=== PATIENT | female | born 1950 | race Caucasian/White ===

== ENCOUNTER 2018-04-26 08:30 | Day surgery (SDC) | payer MEDICARE, OTHER, SELFPAY ==
[2018-04-26] VITALS (7 sets, daily range): BP systolic 131–157; BP diastolic 70–90; PULSE 58–85; RESP 16–169; TEMP 36.5–36.6; O2SAT 94–99; BMI 29.2
[2018-04-26] MEDS: Ciprofloxacin 200 MG/100 ML BAG 100 MG IV (09:43)
[2018-04-26 10:43] LABS: Anion Gap 7 (5-15); BUN 31 mg/dL (7-18); BUN/Creat Ratio 15.1 RATIO (10-20); Calcium,Total 9.4 mg/dL (8.5-10.1); Chloride 112 mmol/L (98-107); Creatinine, Serum 2.05 mg/dL (0.55-1.02); EST Glomerular Filtration Rate 26 mL/min (>60); Est Glom Filt Rate - Afr Amer 31 mL/min (>60); Estimated Creatinine Clearance 25.19 ml/min; Glucose 100 mg/dL (74-106); Potassium 3.7 mmol/L (3.5-5.1); Sodium Level 144 mmol/L (136-145)
--- NOTE | 2018-04-26 12:11 | PCM.IMDPSTOP ---
Immediate Post-Op Note Date of Procedure: 04/26/18 Primary Surgeon/Physician: Cristina Kwok MD utility service worker: none utility service worker: Cristina Kwok Pre-Operative Diagnosis: Left renal calculus. urinary tract infections Post-Operative Diagnosis: same Surgery/Procedure Performed:: cystoscopy left ureteral stent, left renal extracorporeal shockwave lithotripsy Description of Surgical Findings:: 1.5cm left renal calculus, 2 other stones about 3-5mm in size. all 3 stones were treated with total 3000 shocks applied. 6x24cm JJ stent inserted without difficulty. Estimated Blood Loss: <5cc Specimen's removed: none Type of Anesthesia:: General - Admit VTE Documentation VTE Present on Admission: No VTE Mechan Device Prophylaxis: SCD's VTE Pharm Prophylaxis ordered?: No Reason prophylaxis not ordered:: Treatment Not Indicated
--- NOTE | 2018-04-26 12:17 | OP.PN_ITS ---
Immediate Post-Op Note Date of Procedure: 04/26/18 Primary Surgeon/Physician: Cristina Kwok MD senior computer specialist: none senior computer specialist: Cristina Kwok Pre-Operative Diagnosis: Left renal calculus. urinary tract infections Post-Operative Diagnosis: same Surgery/Procedure Performed:: cystoscopy left ureteral stent, left renal extracorporeal shockwave lithotripsy Description of Surgical Findings:: 1.5cm left renal calculus, 2 other stones about 3-5mm in size. all 3 stones were treated with total 3000 shocks applied. 6x24cm JJ stent inserted without difficulty. Estimated Blood Loss: <5cc Specimen's removed: none Type of Anesthesia:: General - Admit VTE Documentation VTE Present on Admission: No VTE Mechan Device Prophylaxis: SCD's VTE Pharm Prophylaxis ordered?: No Reason prophylaxis not ordered:: Treatment Not Indicated
--- NOTE | 2018-04-26 12:18 | PCM.OPRPT ---
Problem List (1) Renal calculi Status: Acute (2) Urinary tract infection Status: Chronic Report of Operation Date of Procedure: 04/26/18 Pre-Operative Diagnosis: Left renal calculus. urinary tract infections Post-Operative Diagnosis: same Surgery/Procedure Performed:: cystoscopy left ureteral stent, left renal extracorporeal shockwave lithotripsy Description of Surgical Findings:: 1.5cm left renal calculus, 2 other stones about 3-5mm in size. all 3 stones were treated with total 3000 shocks applied. 6x24cm JJ stent inserted without difficulty. The patient is a 68-year-old female that I have been managing for several years with renal calculi and urinary tract infections. She had an ultrasound revealing a 1.6 cm stone in the left renal pelvis and a 1.2 cm stone in the right renal pelvis neither one causing hydronephrosis. After discussing all the risks benefits and alternatives in the office the patient agreed to proceed with surgical intervention. She has a history of significant renal dysfunction and has had urinary sepsis due to an obstructing stone in the past. The patient was taken to the operating room, placed on the operating room table. An appropriate timeout was performed in addition to assign and upon entry of the room. Anesthesia monitored the head neck area IV access and vital signs throughout the case. Once anesthesia was a probably administered the patient was placed into dorsal lithotomy position and was prepped and draped in usual sterile fashion. Using fluoroscopy, the left renal calculi were easily visualized. There is one in the central area of the renal pelvis approximately 1.5 cm in size and 2 smaller stones each approximately 5 mm in size identified. At this time a 21 [place] ACMI scope was used to perform a cystoscopy revealing no evidence of pathology within the urinary bladder. The left ureteral orifice was identified and a 0.035 Glidewire was passed without difficulty into the renal pelvis visualized on fluoroscopy. A 6 [place] 24 cm double-J stent was then passed over the wire without difficulty with good curling and she denied urinary bladder. Eventually the proximal portion of the stent curled without abnormality. At this time total of 3000 shocks were applied to the stones, 2000 to the central stone and each 500 to the other smaller stones identified within the left kidney. Patient tolerated the procedure well and was awakened without complication. She was taken to the recovery room in good condition. managed security sales consultant: none managed security sales consultant: Cristina Kwok Type of Anesthesia:: General Anesthesiologist: Irene Crane Specimen's removed: none Estimated Blood Loss (mL): <5cc - Complications none - Admit VTE Documentation VTE Present on Admission: Yes VTE Mechan Device Prophylaxis: SCD's VTE Pharm Prophylaxis ordered?: No Reason prophylaxis not ordered:: Treatment Not Indicated
--- NOTE | 2018-04-26 12:24 | OP.PCM_ITS ---
Problem List (1) Renal calculi Status: Acute (2) Urinary tract infection Status: Chronic Report of Operation Date of Procedure: 04/26/18 Pre-Operative Diagnosis: Left renal calculus. urinary tract infections Post-Operative Diagnosis: same Surgery/Procedure Performed:: cystoscopy left ureteral stent, left renal extracorporeal shockwave lithotripsy Description of Surgical Findings:: 1.5cm left renal calculus, 2 other stones about 3-5mm in size. all 3 stones were treated with total 3000 shocks applied. 6x24cm JJ stent inserted without difficulty. The patient is a 68-year-old female that I have been managing for several years with renal calculi and urinary tract infections. She had an ultrasound revealing a 1.6 cm stone in the left renal pelvis and a 1.2 cm stone in the right renal pelvis neither one causing hydronephrosis. After discussing all the risks benefits and alternatives in the office the patient agreed to proceed with surgical intervention. She has a history of significant renal dysfunction and has had urinary sepsis due to an obstructing stone in the past. The patient was taken to the operating room, placed on the operating room table. An appropriate timeout was performed in addition to assign and upon entry of the room. Anesthesia monitored the head neck area IV access and vital signs throughout the case. Once anesthesia was a probably administered the patient was placed into dorsal lithotomy position and was prepped and draped in usual sterile fashion. Using fluoroscopy, the left renal calculi were easily visualized. There is one in the central area of the renal pelvis approximately 1.5 cm in size and 2 smaller stones each approximately 5 mm in size identified. At this time a 21 [place] ACMI scope was used to perform a cystoscopy revealing no evidence of pathology within the urinary bladder. The left ureteral orifice was identified and a 0.035 Glidewire was passed without difficulty into the renal pelvis visualized on fluoroscopy. A 6 [place] 24 cm double-J stent was then passed over the wire without difficulty with good curling and she denied urinary bladder. Eventually the proximal portion of the stent curled without abnormality. At this time total of 3000 shocks were applied to the stones, 2000 to the central stone and each 500 to the other smaller stones identified within the left kidney. Patient tolerated the procedure well and was awakened without complication. She was taken to the recovery room in good condition. chronometer adjuster: none chronometer adjuster: Cristina Kwok Type of Anesthesia:: General Anesthesiologist: Irene Crane Specimen's removed: none Estimated Blood Loss (mL): <5cc - Complications none - Admit VTE Documentation VTE Present on Admission: Yes VTE Mechan Device Prophylaxis: SCD's VTE Pharm Prophylaxis ordered?: No Reason prophylaxis not ordered:: Treatment Not Indicated
== END 2018-04-26 13:50 | disposition home or self-care (01) ==
LOC: SDC 08:33 → AC 08:35
PROVIDERS: Anesthesiology; Family Provider Internal Medicine; PCP Internal Medicine; Visit Provider Urology
PROC: (CPT 50590; principal; 2018-04-26 10:05)
DX: N20.0 Calculus of kidney (principal); N39.0 Urinary tract infection, site not specified; N39.41 Urge incontinence; I12.9 Hypertensive chronic kidney disease with stage 1 through stage 4 chronic kidney disease, or unspecified chronic kidney disease; N18.4 Chronic kidney disease, stage 4 (severe); D51.0 Vitamin B12 deficiency anemia due to intrinsic factor deficiency; Z78.0 Asymptomatic menopausal state; K95.09 Other complications of gastric band procedure; Z79.899 Other long term (current) drug therapy; Z98.51 Tubal ligation status
CPT/HCPCS: 00873; 50590; 52332; 80048; J7120; C1769; C2617; J0744; J2405

== ENCOUNTER 2018-05-28 06:25 | Day surgery (SDC) | payer MEDICARE, OTHER, SELFPAY ==
[2018-05-28 07:07] VITALS: BP 142/83; PULSE 76; RESP 17; TEMP 36.8; O2SAT 97; BMI 29.0
[2018-05-28] MEDS: Ciprofloxacin 200 MG/100 ML BAG 100 MG IV (07:50)
[2018-05-28 09:45] VITALS: BP 116/73; BP 142/83; PULSE 63; RESP 16; TEMP 36.6; O2SAT 92
[2018-05-28 10:00] VITALS: BP 115/57; BP 142/83; PULSE 54; RESP 16; O2SAT 93
--- NOTE | 2018-05-28 10:04 | PCM.DC.URO ---
Discharge Diet: No Restrictions Discharge Activity: Return to Normal Activity, May not drive while taking narcotic pain medications. Call your doctor if you observe: Fever of 101 or Higher, Inability to urinate, Inability to have a bowel movement, Calf discomfort, Uncontrolled pain Allergies/Adverse Reactions: Allergies adhesive tape Allergy (Verified 05/21/18 12:32) Rash amoxicillin [From Augmentin] Allergy (Verified 05/21/18 12:32) Swelling cephalexin [From Keflex] Allergy (Verified 05/21/18 12:32) Swelling clavulanic acid [From Augmentin] Allergy (Verified 05/21/18 12:32) Swelling latex Allergy (Verified 05/21/18 12:32) Rash Penicillins [PCN] Allergy (Verified 05/21/18 12:32) Swelling sulfamethoxazole [From Bactrim] Allergy (Verified 05/21/18 12:32) rash,swellling, itching trimethoprim [From Bactrim] Allergy (Verified 05/21/18 12:32) rash,swellling, itching Medications to take at Discharge Amlodipine [Norvasc] 10 mg PO DAILY 04/19/18 Calcitriol [Rocaltrol] 0.25 mcg PO MOWEFR 04/19/18 Cyanocobalamin (Vitamin B-12) [Vitamin B-12] 1,000 mcg PO DAILY 04/19/18 Ergocalciferol [Vitamin D] 50,000 unit PO Q7D 04/19/18 Lisinopril [Zestril] 10 mg PO DAILY 04/19/18 Primary Care Physician: Charlie Yan [Primary Care Provider] - Test Results: Test results from this visit will be discussed in further detail at your follow-up appointment, if applicable. Please Follow Up With: Cristina Kwok MD - 2-3 weeks
--- NOTE | 2018-05-28 10:06 | PCM.IMDPSTOP ---
Immediate Post-Op Note Date of Procedure: 05/28/18 Primary Surgeon/Physician: Cristina Kwok MD finisher hot strip: Cristina Kwok Pre-Operative Diagnosis: left renal calculus Post-Operative Diagnosis: same Surgery/Procedure Performed:: cystoscopy, left retrograde pyelogram, left ureteroscopy, left ureteral stent removal Description of Surgical Findings:: a few small stone fragments were irrigated from the renal pelvis, there are multiple stones seen behind the calyces. Also a few small stone fragments seen alongside the stent that were removed with removal of the stent. Estimated Blood Loss: 2cc Specimen's removed: none - Admit VTE Documentation VTE Present on Admission: Yes VTE Mechan Device Prophylaxis: SCD's VTE Pharm Prophylaxis ordered?: No Reason prophylaxis not ordered:: Treatment Not Indicated
[2018-05-28 10:15] VITALS: BP 115/59; BP 142/83; PULSE 58; RESP 16; O2SAT 95
[2018-05-28 10:28] VITALS: BP 125/65; BP 142/83; PULSE 58; RESP 16; TEMP 36; O2SAT 95
--- NOTE | 2018-05-28 11:22 | PCM.OPRPT ---
Problem List (1) Renal calculi Status: Acute Report of Operation Date of Procedure: 05/28/18 Pre-Operative Diagnosis: left renal calculus Post-Operative Diagnosis: same Surgery/Procedure Performed:: cystoscopy, left retrograde pyelogram, left ureteroscopy, left ureteral stent removal Description of Surgical Findings:: a few small stone fragments were irrigated from the renal pelvis, there are multiple stones seen behind the calyces. Also a few small stone fragments seen alongside the stent that were removed with removal of the stent. hose suspender cutter: Cristina Kwok Type of Anesthesia:: General Specimen's removed: none Estimated Blood Loss (mL): 2cc Description of Procedure: The patient is a 68-year-old female who presents with continued left renal calculi following left ureteral stent insertion and extracorporal shockwave lithotripsy. After discussing all the risks benefits and alternatives she agreed to proceed with ureteroscopy and laser lithotripsy as treatment for her stones. Patient was taken to the operating room placed on the operating room table anesthesia monitored the head neck area IV access and vital signs throughout the case. Once anesthesia was probably administered patient was placed in dorsolithotomy position was prepped and draped in usual sterile fashion. A cystourethroscopy was performed and the stent was identified and grasped. All 0.35 wire Glidewire was passed through the stent into the renal pelvis and a second 0.035 Glidewire was passed through the ureteral orifice as well. One was left as a safety wire and the other used as a working wire. A ureteral re-access sheath was then passed over this working wire under fluoroscopic visualization. At this time ureteroscopy using a flexible scope was performed of every calyx in the left kidney. This was done under fluoroscopic visualization in addition to direct visualization through the scope. There were small fragments identified in some mucus. There were no fragments large enough to grasp or laser. There were stones identified on the other side of the parenchyma. At this time full visualization of the renal collecting system was confirmed by performing a retrograde pyelogram. This time the ureteroscope was used to remove the reaccessed sheath under direct visualization. There were no further stones identified aside from one small one alongside the safety wire which was removed with the wire. The patient was left without a ureteral stent. She was awakened and taken to the recovery room in good condition. There are no complications during this procedure. - Complications none - Admit VTE Documentation VTE Present on Admission: Yes VTE Mechan Device Prophylaxis: SCD's VTE Pharm Prophylaxis ordered?: No Reason prophylaxis not ordered:: Treatment Not Indicated
[2018-05-28 11:30] VITALS: BP 122/68; BP 142/83; PULSE 60; RESP 16; TEMP 36.1; O2SAT 95
== END 2018-05-28 11:32 | disposition home or self-care (01) ==
LOC: SDC 06:26 → AC 06:26
PROVIDERS: Family Provider Internal Medicine; PCP Internal Medicine; Visit Provider Urology
PROC: 0TJ98ZZ Inspection of Ureter, Via Natural or Artificial Opening Endoscopic (ICD-10-PCS; CPT 52352; principal; 2018-05-28 08:10)
DX: N20.0 Calculus of kidney (principal); N39.0 Urinary tract infection, site not specified; R39.15 Urgency of urination; I12.9 Hypertensive chronic kidney disease with stage 1 through stage 4 chronic kidney disease, or unspecified chronic kidney disease; N18.4 Chronic kidney disease, stage 4 (severe); E21.5 Disorder of parathyroid gland, unspecified; G40.89 Other seizures; D51.0 Vitamin B12 deficiency anemia due to intrinsic factor deficiency; Z79.899 Other long term (current) drug therapy; Z78.0 Asymptomatic menopausal state; Z98.51 Tubal ligation status; Z98.84 Bariatric surgery status
CPT/HCPCS: 52352; 76000; J7120; C1769; J0744; J2405

== ENCOUNTER 2018-06-25 15:12 | Emergency (ER) | payer MEDICARE, OTHER, SELFPAY ==
[2018-06-25 15:16] VITALS: BP 162/87; PULSE 85; RESP 14; TEMP 36.2; O2SAT 97; BMI 28.1
[2018-06-25 16:11] LABS: Mucous, Urine 0 SEEN /hpf (<or=2+); Red Blood Cells-Urine 0 SEEN /hpf (0-5); Squamous Epithelial Cells - UA 0 SEEN /hpf (5-10)
[2018-06-25] MEDS: 0.9% Normal Saline 1,000 ML 150 ML IV (16:11)
[2018-06-25 16:14] LABS: Color, Urine Yellow (Yellow); Glucose, Dipstick Normal (Normal); Ketone-Dipstick Negative (Negative); Leukocyte Esterase-Dipstick 500 /ul (Negative); Nitrite-Dipstick Negative (Negative); Occult Blood-Urine 10 /ul (Negative); Protein-Dipstick Negative (Negative); Urine Bilirubin Dipstick Negative (Negative); Urine Clarity Clear (Clear); Urine Urobilinogen Normal (Normal)
[2018-06-25 16:24] LABS: Absolute Lymphocyte Count 2.16 X10^3/ul (0.83-4.51); Absolute Neutrophil Count 7.3 X10^3/uL (2.0-7.7); Basophil# 0.04 X10^3/uL; Basophil% 0.4 % (0-1); Eosinophil# 0.21 X10^3/uL; Hematocrit 36.9 % (37-47); Hemoglobin 11.4 g/dl (12.0-15.0); Lymphocyte # 2.16 X10^3/ul (4.0); Mean Corp Hgb Conc 30.9 g/gl (32-36); Mean Corpuscular Hgb 27.7 pg (27.0-32.0); Mean Corpuscular Volume 89.8 fL (81-99); Mean Platelet Vol. 11.6 fl (6.2-12.0); Monocyte# 0.54 X10^3/uL; Monocyte% 5.3 % (0-10); Neutrophil # 7.32 X10^3/uL (2.7-7.7); Neutrophil % 71.2 % (47-70); Platelet Count 255 K/mm3 (150-450); RBC Distribution Width CV 13.2 % (11.6-14.6); RBC Distribution Width SD 42.9 fl (35.1-43.9); Red Blood Count 4.11 M/mm3 (4.2-5.4); White Blood Count 10.3 K/mm3 (4.4-11.0)
[2018-06-25 16:26] LABS: POSITIVE COUNT NO; POSITIVE DIFFERENTIAL NO; POSITIVE MORPHOLOGY NO
[2018-06-25 16:28] LABS: Bacteria RARE /hpf (None Seen); White Blood Cells 10-25 SEEN /hpf (0-5)
[2018-06-25 16:32] LABS: Anion Gap 9 (5-15); BUN 46 mg/dL (7-18); BUN/Creat Ratio 17.4 RATIO (10-20); Calcium,Total 9.6 mg/dL (8.5-10.1); Chloride 107 mmol/L (98-107); Creatinine, Serum 2.64 mg/dL (0.55-1.02); EST Glomerular Filtration Rate 19 mL/min (>60); Est Glom Filt Rate - Afr Amer 23 mL/min (>60); Estimated Creatinine Clearance 19.56 ml/min; Glucose 97 mg/dL (74-106); Potassium 4.3 mmol/L (3.5-5.1); Sodium Level 142 mmol/L (136-145)
--- NOTE | 2018-06-25 16:48 | NURSING ---
LACTIC ACID HEMOLIZED
--- NOTE | 2018-06-25 17:04 | PCM.CONS.GEN ---
Reason for Consult Date of Consultation: 06/25/18 Reason for Consultation: Possible free air on CT History of Present Illness: The patient is a 68 year old F came to the ER after being told that she needed to go there by the radiologist after having CT abdomen pelvis done for a follow-up for her kidney stones. The initial read did say there is intraperitoneal air by the ascending colon and cecum and possibly small bowel small bowel. Patient states on May 28 she had her left ureteral stent removed and nothing was done to the right ureter by Dr. Kwok. Patient was just undergoing follow-up CT denied any abdominal pain, nausea, vomiting. Patient states last time she had a colonoscopy was years ago and she does plan to get her repeat scope done once these kidney stones have been dealt with. She states she does have bowel movement about every other day with the use of MiraLAX daily. She denies any blood states bowel movements are soft. Patient states she has been eating normal diet and not having issues. CT abdomen pelvis was reviewed with our radiologist Dr. Crook he thought that there was actually possibly in the wall of the cecum/colon but he does agree that there is no bowel wall thickening seen on CT. Past Medical History Past Medical History (Chronic Problems): Chronic Problems Urinary tract infection (Chronic) Allergies adhesive tape Allergy (Verified 06/25/18 15:18) Rash amoxicillin [From Augmentin] Allergy (Verified 06/25/18 15:18) Swelling cephalexin [From Keflex] Allergy (Verified 06/25/18 15:18) Swelling clavulanic acid [From Augmentin] Allergy (Verified 06/25/18 15:18) Swelling latex Allergy (Verified 06/25/18 15:18) Rash Penicillins [PCN] Allergy (Verified 06/25/18 15:18) Swelling sulfamethoxazole [From Bactrim] Allergy (Verified 06/25/18 15:18) rash,swellling, itching trimethoprim [From Bactrim] Allergy (Verified 06/25/18 15:18) rash,swellling, itching Home Medications: Ambulatory Orders Medication Instructions Recorded Amlodipine [Norvasc] 10 mg PO DAILY 04/19/18 Calcitriol [Rocaltrol] 0.25 mcg PO MOWEFR 04/19/18 Cyanocobalamin (Vitamin B-12) 1,000 mcg PO DAILY 04/19/18 [Vitamin B-12] Ergocalciferol [Vitamin D] 50,000 unit PO Q7D 04/19/18 Lisinopril [Zestril] 10 mg PO DAILY 04/19/18 Surgical History: - - 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, multiple cystoscopies due to kidney stones Psychiatric History: No pertinent psych hx CHIEF ENTERPRISE ARCHITECT History: No pertinent CHIEF ENTERPRISE ARCHITECT history Smoking Status: Never smoker - *Family History Maternal History Items: No pertinent history Review of Systems Constitutional: Denies: Anorexia, Chills, Fever Eyes: Denies: Double vision HEENT: Denies: Difficulty Swallowing Cardiovascular: Denies: Chest Pain Respiratory: Denies: Shortness of breath at rest Gastrointestinal: Denies: Abdominal Pain, Nausea, Vomiting Genitourinary: Denies: Dysuria Musculoskeletal: Denies: Joint Pain Skin: Denies: Rash Neurological: Denies: Balance problems Psychiatric: Reports: Depression - Denies any suicidal ideation. Denies: Anxiety Hematologic/ Lymphatic: Reports: Easy Bruising. Denies: Easy Bleeding - Physical Exam General: Alert, Oriented x3, Cooperative HEENT: Atraumatic Cardiovascular: Regular rate Abdomen: Soft, Non Tender - no Peritoneal signs, Non-Distended Vital Signs Temp Pulse Resp BP Pulse Ox 97.2 F L 85 14 162/87 H 97 06/25/18 15:16 06/25/18 15:16 06/25/18 15:16 06/25/18 15:16 06/25/18 15:16 Oxygen Delivery Method Room Air Weight: 180 lb Body Mass Index (BMI) 28.1 Laboratory Tests Past 24 Hrs 06/25/18 06/25/18 06/25/18 16:00 16:01 16:01 WBC 10.3 RBC 4.11 L Hgb 11.4 L Hct 36.9 L MCV 89.8 MCH 27.7 MCHC 30.9 L RDW 13.2 RDW Differential 42.9 Plt Count 255 MPV 11.6 Immature Gran % (Auto) 0.100 Neut % (Auto) 71.2 H Lymph % (Auto) 21.0 [place] % (Auto) 5.3 Eos % (Auto) 2.0 Baso % (Auto) 0.4 Absolute Neuts (auto) 7.3 Absolute Lymphs (auto) 2.16 Total Counted Not Reportable Sodium 142 Potassium 4.3 Chloride 107 Carbon Dioxide 26.0 Anion Gap 9 BUN 46 H Creatinine 2.64 H Estim Creat Clear Calc 19.56 Est GFR (MDRD) Af Amer 23 L Est GFR (MDRD) Non-Af 19 L BUN/Creatinine Ratio 17.4 Glucose 97 Lactic Acid Calcium 9.6 Urine Color Yellow Urine Clarity Clear Urine pH 6.0 Ur Specific [place] 1.010 Urine Protein Negative Urine Glucose (UA) Normal Urine Ketones Negative Urine Occult Blood 10 H Urine Nitrite Negative Urine Bilirubin Negative Urine Urobilinogen Normal Ur Leukocyte Esterase 500 H Urine RBC 0 SEEN Urine WBC 10-25 SEEN Ur Squamous Epith Cells 0 SEEN Urine Bacteria RARE Urine Mucus 0 SEEN 06/25/18 06/25/18 16:01 16:58 WBC RBC Hgb Hct MCV MCH MCHC RDW RDW Differential Plt Count MPV Immature Gran % (Auto) Neut % (Auto) Lymph % (Auto) [place] % (Auto) Eos % (Auto) Baso % (Auto) Absolute Neuts (auto) Absolute Lymphs (auto) Total Counted Sodium Potassium Chloride Carbon Dioxide Anion Gap BUN Creatinine Estim Creat Clear Calc Est GFR (MDRD) Af Amer Est GFR (MDRD) Non-Af BUN/Creatinine Ratio Glucose Lactic Acid Cancelled Pending Calcium Urine Color Urine Clarity Urine pH Ur Specific [place] Urine Protein Urine Glucose (UA) Urine Ketones Urine Occult Blood Urine Nitrite Urine Bilirubin Urine Urobilinogen Ur Leukocyte Esterase Urine RBC Urine WBC Ur Squamous Epith Cells Urine Bacteria Urine Mucus Assessment/Plan All Active Problems Renal calculi (Acute) 68-year-old female with CT showing likely retroperitoneal air, denies abdominal pain, normal white blood cell count 1. Patient does not have any abdominal pain on exam also has a normal white blood cell count do not think that this area is significant may have been due to possible perforated sealed; however, there is no thickened bowel on CT or possibly due to straining. I would recommend that prior to her getting colonoscopy that she gets a repeat CAT scan to take a look at this. Did discuss with Dr. Kwok and she agreed to follow-up with CT scan. Discussed with the patient that I would recommend that if she has any increased pain would recommend her coming to the ER. Patient was agreeable had no further questions at this time. 2. Constipation: patient takes MiraLAX daily currently recommend patient check her fiber intake with a goal of 25-30 g of fiber daily to see if this improves her constipation. As she still had a bit of stool on her CT and she states she took 2 Dulcolax as well as the MiraLAX. Tahira Malone M.D. Pager: [phone] [facility] [address] [place] [address], Outpatient [place], [address] [place] [address] Office: [phone] Code Visit Inpatient E&M: 98078 Init Hosp L1
--- NOTE | 2018-06-25 17:09 | CON.PCM_ITS ---
Reason for Consult Date of Consultation: 06/25/18 Reason for Consultation: Possible free air on CT History of Present Illness: The patient is a 68 year old F came to the ER after being told that she needed to go there by the radiologist after having CT abdomen pelvis done for a follow- up for her kidney stones. The initial read did say there is intraperitoneal air by the ascending colon and cecum and possibly small bowel small bowel. Patient states on May 28 she had her left ureteral stent removed and nothing was done to the right ureter by Dr. Kwok. Patient was just undergoing follow -up CT denied any abdominal pain, nausea, vomiting. Patient states last time she had a colonoscopy was years ago and she does plan to get her repeat scope done once these kidney stones have been dealt with. She states she does have bowel movement about every other day with the use of MiraLAX daily. She denies any blood states bowel movements are soft. Patient states she has been eating normal diet and not having issues. CT abdomen pelvis was reviewed with our radiologist Dr. Crook he thought that there was actually possibly in the wall of the cecum/colon but he does agree that there is no bowel wall thickening seen on CT. Past Medical History Past Medical History (Chronic Problems): Chronic Problems Urinary tract infection (Chronic) Allergies adhesive tape Allergy (Verified 06/25/18 15:18) Rash amoxicillin [From Augmentin] Allergy (Verified 06/25/18 15:18) Swelling cephalexin [From Keflex] Allergy (Verified 06/25/18 15:18) Swelling clavulanic acid [From Augmentin] Allergy (Verified 06/25/18 15:18) Swelling latex Allergy (Verified 06/25/18 15:18) Rash Penicillins [PCN] Allergy (Verified 06/25/18 15:18) Swelling sulfamethoxazole [From Bactrim] Allergy (Verified 06/25/18 15:18) rash,swellling, itching trimethoprim [From Bactrim] Allergy (Verified 06/25/18 15:18) rash,swellling, itching Home Medications: Ambulatory Orders Medication Instructions Recorded Amlodipine [Norvasc] 10 mg PO DAILY 04/19/18 Calcitriol [Rocaltrol] 0.25 mcg PO MOWEFR 04/19/18 Cyanocobalamin (Vitamin B-12) 1,000 mcg PO DAILY 04/19/18 [Vitamin B-12] Ergocalciferol [Vitamin D] 50,000 unit PO Q7D 04/19/18 Lisinopril [Zestril] 10 mg PO DAILY 04/19/18 Surgical History: - - 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, multiple cystoscopies due to kidney stones Psychiatric History: No pertinent psych hx [employer] 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 Denies: Anxiety Hematologic/ Lymphatic: Reports: Easy Bruising. Denies: Easy Bleeding - Physical Exam General: Alert, Oriented x3, Cooperative HEENT: Atraumatic Cardiovascular: Regular rate Abdomen: Soft, Non Tender - no Peritoneal signs, Non-Distended Vital Signs Temp Pulse Resp BP Pulse Ox 97.2 F L 85 14 162/87 H 97 06/25/18 15:16 06/25/18 15:16 06/25/18 15:16 06/25/18 15:16 06/25/18 15:16 Oxygen Delivery Method Room Air Weight: 180 lb Body Mass Index (BMI) 28.1 Laboratory Tests Past 24 Hrs 06/25/18 06/25/18 06/25/18 16:00 16:01 16:01 WBC 10.3 RBC 4.11 L Hgb 11.4 L Hct 36.9 L MCV 89.8 MCH 27.7 MCHC 30.9 L RDW 13.2 RDW Differential 42.9 Plt Count 255 MPV 11.6 Immature Gran % (Auto) 0.100 Neut % (Auto) 71.2 H Lymph % (Auto) 21.0 Coffey % (Auto) 5.3 Eos % (Auto) 2.0 Baso % (Auto) 0.4 Absolute Neuts (auto) 7.3 Absolute Lymphs (auto) 2.16 Total Counted Not Reportable Sodium 142 Potassium 4.3 Chloride 107 Carbon Dioxide 26.0 Anion Gap 9 BUN 46 H Creatinine 2.64 H Estim Creat Clear Calc 19.56 Est GFR (MDRD) Af Amer 23 L Est GFR (MDRD) Non-Af 19 L BUN/Creatinine Ratio 17.4 Glucose 97 Lactic Acid Calcium 9.6 Urine Color Yellow Urine Clarity Clear Urine pH 6.0 Ur Specific [place] 1.010 Urine Protein Negative Urine Glucose (UA) Normal Urine Ketones Negative Urine Occult Blood 10 H Urine Nitrite Negative Urine Bilirubin Negative Urine Urobilinogen Normal Ur Leukocyte Esterase 500 H Urine RBC 0 SEEN Urine WBC 10-25 SEEN Ur Squamous Epith Cells 0 SEEN Urine Bacteria RARE Urine Mucus 0 SEEN 06/25/18 06/25/18 16:01 16:58 WBC RBC Hgb Hct MCV MCH MCHC RDW RDW Differential Plt Count MPV Immature Gran % (Auto) Neut % (Auto) Lymph % (Auto) Coffey % (Auto) Eos % (Auto) Baso % (Auto) Absolute Neuts (auto) Absolute Lymphs (auto) Total Counted Sodium Potassium Chloride Carbon Dioxide Anion Gap BUN Creatinine Estim Creat Clear Calc Est GFR (MDRD) Af Amer Est GFR (MDRD) Non-Af BUN/Creatinine Ratio Glucose Lactic Acid Cancelled Pending Calcium Urine Color Urine Clarity Urine pH Ur Specific [place] Urine Protein Urine Glucose (UA) Urine Ketones Urine Occult Blood Urine Nitrite Urine Bilirubin Urine Urobilinogen Ur Leukocyte Esterase Urine RBC Urine WBC Ur Squamous Epith Cells Urine Bacteria Urine Mucus Assessment/Plan All Active Problems Renal calculi (Acute) 68-year-old female with CT showing likely retroperitoneal air, denies abdominal pain, normal white blood cell count 1. Patient does not have any abdominal pain on exam also has a normal white blood cell count do not think that this area is significant may have been due to possible perforated sealed; however, there is no thickened bowel on CT or possibly due to straining. I would recommend that prior to her getting colonoscopy that she gets a repeat CAT scan to take a look at this. Did discuss with Dr. Kwok and she agreed to follow-up with CT scan. Discussed with the patient that I would recommend that if she has any increased pain would recommend her coming to the ER. Patient was agreeable had no further questions at this time. 2. Constipation: patient takes MiraLAX daily currently recommend patient check her fiber intake with a goal of 25-30 g of fiber daily to see if this improves her constipation. As she still had a bit of stool on her CT and she states she took 2 Dulcolax as well as the MiraLAX. Tahira Malone M.D. Pager: [phone] [facility] [address] [place] [address], Outpatient [place], [address] [place] [address] Office: [phone] Code Visit Inpatient E&M: 36560 Init Hosp L1
--- NOTE | 2018-06-25 17:47 | ED.VISSUMM ---
- ER Visit Summary Date of Service: 06/25/18 Chief Complaint: Abnormal CT History of Present Illness: The patient is a 68 F with a history of kidney stones. On May 28 patient had ureter stent and kidney stone removed. She went to an outpatient CT scan today just for routine follow-up of her kidney stones. She had a phone call from the radiologist to go immediately to the nearest emergency room secondary to free air on her scan. Patient denies any abdominal pain. She has chronic soft stool after a gastric bypass but has had no significant change in her bowel regimen. She has no vomiting, fever, chills. Physical Examination: Blood pressure on arrival is 162/87, other vitals normal. Patient sitting upright in bed no acute distress. Heart is regular rate and rhythm. Lung sounds are clear. Abdomen is soft and nontender to exam. Hypoactive but present bowel sounds are noted throughout. Test Results: CBC was normal white count hemoglobin 11.4. Chemistry studies reveal BUN of 46 and creatinine 2.64. Urinalysis shows 10-25 whites and rare bacteria. Lactate is normal at 1.0. I was able to review the CT report which revealed free air adjacent to the cecum and the ascending colon. There is no obvious mural thickening of the colon. There may be 2 or 3 tiny foci of air adjacent to the small bowel in the mid abdomen. Emergency Department Course and Treatment: I spoke with Dr. Kwok along with Dr. Malone from surgery shortly after seeing the patient. Dr. Malone presented to the emergency room to evaluate her. She reviewed the CT scan with Dr. Crook. It is felt the patient has pneumatosis of the right hemicolon. With normal labs and a non-tender abdomen, it is recommended that she follow-up for a repeat CT scan and colonoscopy as an outpatient. If her pain worsens she is to return to the emergency room. I spoke with the patient's urologist to update her on her findings. She asked that we send the urine for culture but not treat her urine at this time as she does tend to have appearance of chronically infected urine. Treatment Plan: [] Disposition: Discharge Impression: Pneumatosis of right hemicolon This note was generated with CaseTrekation software. It may contain incorrect words, spelling, and punctuation that were not noted in review of the chart prior to signing ED Disposition - Plan for ED Patient: Chief Complaint: Abd Pain Referrals: Charlie Yan [Primary Care Provider] -
--- NOTE | 2018-06-25 17:51 | ED.DEP ---
ED Disposition - Plan for ED Patient: Disposition: Home or Assisted Living Chief Complaint: Abd Pain Referrals: Charlie Yan [Primary Care Provider] - Cristina Kwok MD [STAFF PHYSICIAN] - Additional Instructions: Your CT scan showed air in the wall of your colon. Return to the ED immediately for pain or any other concerns. As suggested by surgery, follow-up for repeat CT scan and colonoscopy.
[2018-06-25 18:00] VITALS: BP 143/78; PULSE 83; RESP 16; O2SAT 98
== END 2018-06-25 18:01 | disposition home or self-care (01) ==
PROVIDERS: Emergency Provider Emergency Medicine; Family Provider Internal Medicine; PCP Internal Medicine
DX: K63.89 Other specified diseases of intestine (principal); I10 Essential (primary) hypertension; Z79.899 Other long term (current) drug therapy; Z87.442 Personal history of urinary calculi; Z98.84 Bariatric surgery status
CPT/HCPCS: 80048; 81001; 83605; 85025; 87077; 87086; 87088; 87186; 96360; 96361; 99283; J7030; A4216

== ENCOUNTER → 2019-06-09 12:44 | Outpatient (CLI) | payer MEDICARE, OTHER, SELFPAY ==
[2019-06-09 13:54] LABS: Hematocrit 38.8 % (37-47); Hemoglobin 12.1 g/dL (12.0-15.0); Mean Corp Hgb Conc 31.2 g/dL (32-36); Mean Corpuscular Hgb 28.9 pg (27.0-32.0); Mean Corpuscular Volume 92.8 fL (81-99); Mean Platelet Vol. 12.3 fl (6.2-12.0); Platelet Count 243 K/mm3 (150-450); RBC Distribution Width CV 13.3 % (11.6-14.6); RBC Distribution Width SD 45.1 fl (35.1-43.9); Red Blood Count 4.18 M/mm3 (4.2-5.4); White Blood Count 9.9 K/mm3 (4.4-11.0)
[2019-06-09 14:05] LABS: AST(SGOT) 22 U/L (15-37); Alanine Aminotransfer ALT/SGPT 23 U/L (13-56); Albumin, Serum 3.7 g/dL (3.2-5.0); Alkaline Phosphatase 198 U/L (45-117); BUN 45 mg/dL (7-18); BUN/Creat Ratio 14.1 RATIO (10-20); Calcium,Total 9.2 mg/dL (8.5-10.1); Chloride 115 mmol/L (98-107); EST Glomerular Filtration Rate 15 mL/min (>60); Est Glom Filt Rate - Afr Amer 18 mL/min (>60); Globulin 3.7 g/dL (2.2-4.2); Glucose 104 mg/dL (74-106); Potassium 3.8 mmol/L (3.5-5.1); Protein, Total 7.4 g/dL (6.4-8.2); Sodium Level 142 mmol/L (136-145)
[2019-06-09 14:06] LABS: Anion Gap 10 (5-15)
== END ==
PROVIDERS: Family Provider Family Medicine; PCP Family Medicine; Referring Provider Urology; Visit Provider Urology
DX: N20.0 Calculus of kidney (principal); R10.9 Unspecified abdominal pain
CPT/HCPCS: 36415; 80053; 85027

== ENCOUNTER → 2019-06-11 15:44 | Outpatient (CLI) | payer MEDICARE, OTHER, SELFPAY ==
--- NOTE | 2019-06-11 15:48 | CT_ITS ---
STUDY: CT ABDOMEN AND PELVIS WITHOUT CONTRAST REASON FOR EXAM: Female, 69 years old. Stage IV renal disease, history of bilateral kidney stones RADIATION DOSAGE (If Supplied By Facility): CTDIvol = ( 11.13 ) mGy, DLP = ( 573.02 ) mGycm TECHNIQUE: Transaxial images were obtained from the dome of the diaphragm to the symphysis pubis without oral contrast, and without intravenous contrast. Sagittal and coronal images were reconstructed. Individualized dose optimization techniques were used for this CT. COMPARISON: None. FINDINGS: The visualized lung bases are unremarkable. The visualized portions of the heart are within normal limits. Normal liver. There is a solitary gallstone. Normal spleen. Normal pancreas. Normal bilateral adrenal glands. There is mild left renal atrophy. There are multiple nonobstructing right renal calculi measuring up to 8 mm. There is mild left renal atrophy. Multiple nonobstructing left renal calculi are also noted measuring up to 6 mm. There are several lower pole cyst measuring up to 2.5 cm. Normal visualized stomach. Normal small intestine. There is a moderate colonic stool burden. There is non-visualization of the appendix. There are calcified plaques of the abdominal aorta. Normal inferior vena cava. Normal retroperitoneum. Normal urinary bladder. There is a tiny fat-containing umbilical hernia. There are diffuse degenerative changes of the visualized thoracolumbar spine. There is a grade 1 retrolisthesis of L5 relative to L4 and S1. CT/Abdomen/Pelvis without Cont IMPRESSION: 1. Cholelithiasis. 2. Mild bilateral renal atrophy. Multiple nonobstructing bilateral renal calculi. Several lower pole left renal cyst measuring up to 2.5 cm. 3. Moderate colonic stool burden. 4. Tiny fat-containing umbilical hernia. Electronically Signed: Сергей Moreland MD at 16:23 EDT , Service support ,
== END ==
PROVIDERS: Family Provider Family Medicine; PCP Family Medicine; Referring Provider Urology; Visit Provider Urology
DX: N20.0 Calculus of kidney (principal); R10.9 Unspecified abdominal pain
CPT/HCPCS: 74176

== ENCOUNTER 2019-09-20 13:30 | Inpatient (IN) | payer MEDICARE, OTHER, SELFPAY ==
[2019-09-20] VITALS (10 sets, daily range): BP systolic 115–157; BP diastolic 72–105; PULSE 64–86; RESP 16–23; TEMP 36.5–36.9; O2SAT 95–100; BMI 27.1; BMI 26.9; BMI 27.0
--- NOTE | 2019-09-20 13:58 | CT_ITS ---
STUDY: CT ABDOMEN AND PELVIS WITHOUT CONTRAST REASON FOR EXAM: Female, 69 years old. Bilateral flank pain. RADIATION DOSAGE (If Supplied By Facility): CTDIvol = ( 11.40 ) mGy, DLP = ( 589.77 ) mGycm TECHNIQUE: Transaxial images were obtained from the dome of the diaphragm to the symphysis pubis without oral contrast, and without intravenous contrast. Sagittal and coronal images were reconstructed. Individualized dose optimization techniques were used for this CT. COMPARISON: 06/11/2019 FINDINGS: Evaluation of the abdominal viscera is limited in the absence of intravenous contrast. The visualized lung bases are clear. The visualized portions of the heart and pericardium are within normal limits. There are gallstones noted in the gallbladder. The liver is low in density, consistent with fatty infiltration. The spleen is normal in size. The pancreas demonstrates an unremarkable unenhanced appearance. The adrenal glands are within normal limits. There are stable bilateral subcentimeter nonobstructing renal collecting system stones, measuring up to 7 mm. There are no ureteral stones. There is no hydronephrosis. There is a stable cyst in the lower pole of the left kidney. Normal visualized stomach. There is no bowel obstruction or inflammation. There is a large amount of stool in the colon, consistent with constipation. The appendix is not visualized, but there are no findings to suggest acute appendicitis. The aorta is normal in caliber. Again noted are atherosclerotic calcifications in the aorta. There is no abdominal or pelvic free air, free fluid, fluid collection or lymphadenopathy. There are no destructive osseous lesions. There are stable degenerative changes noted in the spine. CT/Abdomen/Pelvis without Cont IMPRESSION: No acute abdominal or pelvic pathology demonstrated on this noncontrast CT. Stable nonacute findings, as above. Electronically Signed: Darryl Neff, at 15:01 EST Tel , Service support ,
--- NOTE | 2019-09-20 13:59 | RAD_ITS ---
STUDY: X-RAY CHEST REASON FOR EXAM: Female, 69 years old. Bilateral flank pain and shortness of breath. TECHNIQUE: PA and lateral views of the chest. COMPARISON: None. FINDINGS: The lungs are clear and expanded. There is no demonstrated pleural abnormality. Normal size heart. Normal mediastinum and mame. Normal visualized pulmonary arteries. Normal visualized aortic arch and descending thoracic aorta. Normal visualized thoracic spine. Normal visualized ribs, clavicles, and shoulders. There is no demonstrated abnormality of the visualized soft tissue structures of the upper abdomen. RAD/Chest PA and Lateral IMPRESSION: No acute cardiopulmonary disease. Electronically Signed: Francisco Long DO at 16:19 EST Tel [phone], Service support ,
[2019-09-20] MEDS: 0.9% Normal Saline 1,000 ML 1000 ML IV (14:15)
[2019-09-20] MEDS: Ondansetron 4 MG/2 ML Vial IV (14:15)
[2019-09-20 14:22] LABS: Absolute Lymphocyte Count 1.19 X10^3/uL (0.83-4.51); Absolute Neutrophil Count 7.1 X10^3/uL (2.0-7.7); Basophil# 0.04 X10^3/uL; Basophil% 0.5 % (0-1); Eosinophil# 0.06 X10^3/uL; Eosinophils% 0.7 % (0-5); Hematocrit 34.9 % (37-47); Hemoglobin 11.3 g/dL (12.0-15.0); Lymphocyte # 1.19 X10^3/ul (4.0); Lymphocyte % 13.4 % (19-41); Mean Corp Hgb Conc 32.4 g/dL (32-36); Mean Corpuscular Hgb 29.4 pg (27.0-32.0); Mean Corpuscular Volume 90.9 fL (81-99); Mean Platelet Vol. 12.2 fl (6.2-12.0); Monocyte# 0.44 X10^3/uL; NRBC Flagged by Analyzer 0 % (0-5); Neutrophil # 7.08 X10^3/uL (2.7-7.7); Neutrophil % 79.8 % (47-70); Platelet Count 227 K/mm3 (150-450); RBC Distribution Width CV 13.5 % (11.6-14.6); Red Blood Count 3.84 M/mm3 (4.2-5.4); White Blood Count 8.9 K/mm3 (4.4-11.0)
[2019-09-20 14:34] LABS: Mucous, Urine 0 SEEN /hpf (<or=2+); Red Blood Cells-Urine 0 SEEN /hpf (0-5); Squamous Epithelial Cells - UA 0 SEEN /hpf (5-10)
[2019-09-20 14:35] LABS: Color, Urine Yellow (Yellow); Glucose, Dipstick Normal (Normal); Ketone-Dipstick Negative (Negative); Leukocyte Esterase-Dipstick 500 /ul (Negative); Nitrite-Dipstick Negative (Negative); Occult Blood-Urine 10 /ul (Negative); Protein-Dipstick 30 mg/dl (Negative); Specific Gravity, Urine 1.015 (1.002-1.030); Urine Clarity Sl. Cloudy (Clear); Urine Urobilinogen Normal (Normal)
[2019-09-20 14:38] LABS: AST(SGOT) 42 U/L (15-37); Alanine Aminotransfer ALT/SGPT 62 U/L (13-56); Albumin, Serum 3.4 g/dL (3.2-5.0); Alkaline Phosphatase 210 U/L (45-117); Anion Gap 11 (5-15); BUN 65 mg/dL (7-18); Calcium,Total 9.2 mg/dL (8.5-10.1); Chloride 115 mmol/L (98-107); Creatinine, Serum 3.43 mg/dL (0.55-1.02); EST Glomerular Filtration Rate 14 mL/min (>60); Est Glom Filt Rate - Afr Amer 17 mL/min (>60); Estimated Creatinine Clearance 14.84 ml/min; Globulin 3.4 g/dL (2.2-4.2); Glucose 116 mg/dL (74-106); Potassium 4.1 mmol/L (3.5-5.1); Protein, Total 6.8 g/dL (6.4-8.2); Sodium Level 140 mmol/L (136-145)
[2019-09-20 14:42] LABS: Urine Bilirubin Dipstick 1 mg/dL (Negative); White Blood Cells 5-10 SEEN /hpf (0-5)
[2019-09-20 14:43] LABS: Bacteria RARE /hpf (None Seen); Transitional Epithelial - Ur 0 SEEN /hpf (0-5); Yeast-Urine RARE /hpf (None Seen)
--- NOTE | 2019-09-20 15:12 | NURSING ---
LACTIC ACID NEEDS REDRAWN
--- NOTE | 2019-09-20 15:15 | ED.RN ---
lab called to state that Lactic Acid needed re-drawn because it was not spun in the required time as it was left in the centrifuge. Md Caballero notfied and order cancelled as original lab was sent down nearly an hour ago and a L of NS has infused.
--- NOTE | 2019-09-20 15:24 | US_ITS ---
STUDY: ABDOMINAL ULTRASOUND - RIGHT UPPER QUADRANT REASON FOR VISIT: Female, 69 years old abnormal LFTs. Pain. TECHNIQUE: Transabdominal ultrasound was performed with real-time and static toscano scale imaging. TECHNICAL QUALITY: Examination limited by bowel gas. COMPARISON: CT of the abdomen and pelvis, September 20, 2019. FINDINGS: Liver: The liver measures 13.9 cm. There is a heterogeneous echogenicity of the liver. The bile ducts are within normal limits. There is hepatic color flow. The direction of portal flow is hepatopetal. There is no demonstrated mass lesion. Gallbladder: Normal distended gallbladder. The gallbladder wall measures 3.7 mm. There is a positive sonographic Lau''s sign. There is no pericholecystic fluid. There are multiple echogenic structures within the gallbladder, consistent with multiple gallstones. Common Bile Duct (C.B.D.): The common bile duct measures 2.3 mm. Pancreas: Normal size of the head, body and proximal tail of the pancreas. The distal tail is obscured. There is normal echogenicity of the pancreas. There is no demonstrated pancreatic mass or cyst. Right Kidney: Normal size of the right kidney. The right kidney measures 9.3 cm. Normal renal cortex. The right cortex measures 1.2 cm. There is no demonstrated renal mass or cyst. There are calculi in the upper right kidney. There is no right hydronephrosis. US/Gallbladder IMPRESSION: 1. Gallstones with mild wall thickening and positive Lau''s sign. The findings suggest acute cholecystitis. 2. Fatty infiltration of the liver. 3. Right renal calculi as noted on the recent CT. N.B. : The above information has been verbally conveyed by Francisco Long DO to Brayan Caballero MD, on 09/20/2019 16:47:31 (ET). Electronically Signed: Francisco Long DO at 16:49 EST Tel [phone], Service support ,
--- NOTE | 2019-09-20 16:13 | ED.DCSUM_ITS ---
- ER Visit Summary Date of Service: 09/20/19 Chief Complaint: Right flank pain History of Present Illness: The patient is a [address] Kwok, Dr. Squires, and Dr. Bowens. She reports that she has right flank pain that began 3 weeks ago. Some continuous waxing and waning pain that is 7 to 10 hours and 5- 10 currently. Is worsened by nothing and relieved by sitting down. Patient denies any fever or chills. She denies any dysuria or frequency. On review of systems patient reports that she is had a cough for the past 3 weeks. States that this is nonproductive. She denies any chest pain. She denies abdominal pain. She is had nausea without vomiting. She reports she is had diarrhea 6-8 times a day for the past 4 weeks. She does have a history of chronic diarrhea, but typically this is twice a day. Finally she complains of generalized weakness. Physical Examination: Vitals: Stable. Afebrile. General: Well-nourished and well-developed. Head: Normocephalic atraumatic. Neck: Supple, no lymphadenopathy. No JVD. Nontender. Cardiovascular: Regular rate and rhythm. No murmurs. Respiratory: No respiratory distress. Clear to auscultation bilaterally. Abdominal: Soft, mild right upper quadrant tenderness to palpation, nondistended, normal bowel sounds. No guarding, rebound, or peritoneal signs. Back: Mild right CVA tenderness. Extremities: Nontender, no edema. Skin: Normal color, no rash. Neurologic: Alert and oriented ?3. Cranial nerves II through XII are intact. Normal strength and sensation. Psych: Normal affect. Test Results: CBC shows an H&H of 11.3 and 34.9, 7 neutrophils 80, lymphocytes 13. Chem-7 shows a chloride 115, CO2 of 14, glucose 115, BUN 65, creatinine 3.43. Prior creatinine was 3.2 June 09. LFTs showed alk phos of 210, ALT of 62, AST 42. UA shows 5-10 white blood cells and rare bacteria. Clinical Impression(s) from Imaging Studies Abdomen/Pelvis CT 09/20/19 13:58 IMPRESSION: No acute abdominal or pelvic pathology demonstrated on this noncontrast CT. Stable nonacute findings, as above. Electronically Signed: Darryl Neff, at 15:01 EST Tel , Service support , Emergency Department Course and Treatment: Patient was given a dose of Zofran IV. She was given a 500 cc bolus of normal saline. She is resting comfortably. On repeat exam she does have mild right upper quadrant tenderness palpation. Is a question her further she does report that she does have some fatty food intolerance. Treatment Plan: At this time patient is going to be turned over the care of the oncoming doctor for follow-up on the right upper quadrant ultrasound. Patient understands if this does show cholecystitis that she will likely require hospitalization and further treatment. If this does not show cholecystitis she will likely be discharged with referral to a surgeon for further evaluation and treatment. Disposition: Pending Impression: 1. Right flank pain. 2. Right upper quadrant pain. 3. Elevated liver function test. 4. Chronic renal insufficiency. This note was generated with StartSpanish dictation software. It may contain incorrect words, spelling, and punctuation that were not noted in review of the chart prior to signing ED Disposition - Plan for ED Patient: Referrals: Jewell Bowens DO [Primary Care Provider] -
--- NOTE | 2019-09-20 16:31 | ED.VISSUMM ---
- ER Visit Summary Date of Service: 09/20/19 Chief Complaint: [] History of Present Illness: The patient is a 69 F [] Physical Examination: [] Test Results: [] Emergency Department Course and Treatment: [] Treatment Plan: [] Disposition: [] Impression: [] This note was generated with Purchext dictation software. It may contain incorrect words, spelling, and punctuation that were not noted in review of the chart prior to signing ED Disposition - Plan for ED Patient: Instructions: Gallstones, FLANK PAIN, Uncertain Cause Prescriptions: Ciprofloxacin [Cipro] 500 mg PO DAILY #6 tab Prescription Printed Hydrocodone Bitart/Apap 5-325 [[place] 5MG-325MG] 1 tab PO Q4H PRN PRN 2 Days #10 tab PRN Reason: Pain Prescription Printed Ranitidine [Zantac] 300 mg PO DAILY #30 tab Prescription Printed Ondansetron [Zofran Odt] 4 mg PO Q8H PRN PRN #10 tab PRN Reason: Nausea Prescription Printed Referrals: Arden Hernandez MD [STAFF PHYSICIAN] - 3-5 Days Cristina Kwok MD [STAFF PHYSICIAN] - Keep Quentin appointment
[2019-09-20] MEDS: Mag Hydrox/Al Hydrox/Simeth 30 ML UDC PO (16:50)
[2019-09-20] MEDS: Famotidine 20 MG Tablet 40 MG PO (16:50)
[2019-09-20] MEDS: Ciprofloxacin 500 MG Tablet PO (16:50)
--- NOTE | 2019-09-20 17:49 | NURSING ---
HOSPITALIST PAGED DR DAMON PAGED
--- NOTE | 2019-09-20 17:51 | HP.PCM_ITS ---
History of Present Illness Date of Admission: 09/20/19 Chief Complaint: worsening abdominal pain The patient is a 69 year old F with a past medical history as listed which includes recurrent kidney stones. She was admitted through the ED on 09/20/2019 with a complaint of right abdominal pain which he states is been going on for about a month but gradually worsened. She had associated anorexia and see she does not feel like eating fatty foods as the taste has changed and she thinks it makes the pain worse. She denied any fever or chills but admitted to nausea and denied any vomiting. She states this pain is unlike how her kidney stone pain usually is. She describes pain as colicky. On reviewing the ED, she was afebrile and respiratory rate was 23 with pulse rate of 69 blood pressure 146/75. Chemistry showed bicarb level of 14 and creatinine of 3.43. CBC showed no leukocytosis with hemoglobin of 11.3 and WBC of 8.9. Abdominopelvic CT showed evidence of kidney stones which was chronic, and gallstones noted in the gallbladder but was otherwise normal. Gallbladder ultrasound showed normal d istended gallbladder with positive sonographic Lau sign and multiple gallstones, as well as right renal calculi as noted on the CT. She has been admitted to be managed for acute cholecystitis. [] Past Medical History Past Medical History (Chronic Problems): Chronic Problems Urinary tract infection (Chronic) Allergies adhesive tape Allergy (Verified 09/20/19 13:34) Rash amoxicillin [From Augmentin] Allergy (Verified 09/20/19 13:34) Swelling cephalexin [From Keflex] Allergy (Verified 09/20/19 13:34) Swelling clavulanic acid [From Augmentin] Allergy (Verified 09/20/19 13:34) Swelling latex Allergy (Verified 09/20/19 13:34) Rash Penicillins [PCN] Allergy (Verified 09/20/19 13:34) Swelling sulfamethoxazole [From Bactrim] Allergy (Verified 09/20/19 13:34) rash,swellling, itching trimethoprim [From Bactrim] Allergy (Verified 09/20/19 13:34) rash,swellling, itching Home Medications: Ambulatory Orders Medication Instructions Recorded Amlodipine [Norvasc] 5 mg PO DAILY 04/19/18 Ciprofloxacin [Cipro] 500 mg PO DAILY #6 tab 09/20/19 Hydrocodone Bitart/Apap 5-325 1 tab PO Q4H PRN PRN 2 Days #10 tab 09/20/19 [[place] 5MG-325MG] Ondansetron [Zofran Odt] 4 mg PO Q8H PRN PRN #10 tab 09/20/19 Ranitidine [Zantac] 300 mg PO DAILY #30 tab 09/20/19 Sodium Bicarbonate 650 mg PO BID 09/20/19 Surgical History: - - 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, multiple cystoscopies due to kidney stones Psychiatric History: No pertinent psych hx 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 Denies: Chills, Fever Eyes: Denies: Blurred vision HEENT: Denies: Head Aches, Sinus Congestion, Sinus Drainage Cardiovascular: Denies: Chest Pain, Palpitations Respiratory: Denies: Cough, Shortness of Breath, Shortness of breath at rest, Shortness of breath upon exertion, Sputum production Gastrointestinal: Reports: Abdominal Pain, Nausea. Denies: Diarrhea, Dyspepsia, Hematochezia, Vomiting Genitourinary: Denies: Dysuria Musculoskeletal: Denies: Joint Pain, Joint Tenderness Skin: Denies: Rash, Wounds Neurological: Denies: Numbness, Tingling, Focal weakness Psychiatric: Denies: Anxiety, Depression, Homicidal Ideations, Suicidal Ideations Hematologic/ Lymphatic: Denies: Easy Bruising, Easy Bleeding VTE Information - Inpt Only VTE Present on Admission: No VTE Pharm Prophylaxis ordered?: Yes - Physical Exam Vitals/I&O's: Vital Signs Temp Pulse Resp BP Pulse Ox 98.0 F 72 20 H 148/80 H 97 09/20/19 13:31 09/20/19 17:33 09/20/19 17:33 09/20/19 17:33 09/20/19 17:33 Oxygen Delivery Method Room Air Weight: 172 lb 13.478 oz Body Mass Index (BMI) 27.1 Intake and Output for Last 24 Hours 09/18/19 09/19/19 09/20/19 23:59 23:59 23:59 Intake Total 1000 / 1000 Balance 1000 / 1000 General: Alert, Oriented x3, Cooperative, No apparent distress HEENT: Atraumatic, PERRLA, EOMI, Normocephalic Oral: Moist Mucosa Neck: Supple, No JVD, Negative Carotid Bruits Lungs: Clear to auscultation, Normal air movement, No rhonchi, No wheeze, No rales Cardiovascular: Regular rate, Regular Rhythm, Normal S1, Normal S2, No murmurs Abdomen: Bowel Sounds Present, Soft, - - mild RUQ tenderness, no guarding or rebound tenderness. Negative Lau's sign. Extremities: No clubbing, No cyanosis, No edema, Capillary Refill Less than 3 Seconds Skin: No rashes, No breakdown Musculoskeletal: No Tenderness to Palpation of Joints or Extremities Lymphatic: No Cervical, Supraclavicular, or Inguinal Adenopathy Neurological: Cranial nerves II-XII grossly intact Psych/Mental Status: Normal Affect, Appropriate, Alert and oriented to time, place, person, mood and affect Laboratory Results 09/20/19 14:10: WBC 8.9, RBC 3.84 L, Hgb 11.3 L, Hct 34.9 L, MCV 90.9, MCH 29.4, MCHC 32.4, RDW Std Deviation 45.0 H, RDW Coeff of [place] 13.5, Plt Count 227, MPV 12.2 H, Immature Gran % (Auto) 0.600, Neut % (Auto) 79.8 H, Lymph % (Auto) 13.4 L, [place] % (Auto) 5.0, Eos % (Auto) 0.7, Baso % (Auto) 0.5, Absolute Neuts (auto) 7.1, Absolute Lymphs (auto) 1.19, Nucleated RBC % 0 09/20/19 14:10: Sodium 140, Potassium 4.1, Chloride 115 H, Carbon Dioxide 14.0 L , Anion Gap 11, BUN 65 H, Creatinine 3.43 H, Estim Creat Clear Calc 14.84, Est GFR (MDRD) Af Amer 17 L, Est GFR (MDRD) Non-Af 14 L, BUN/Creatinine Ratio 19.0, Glucose 116 H, Calcium 9.2, Total Bilirubin 0.50, AST 42 H, ALT 62 H, Alkaline Phosphatase 210 H, Total Protein 6.8, Albumin 3.4, Globulin 3.4, Albumin/Globulin Ratio 1.0 09/20/19 14:10: Lactic Acid Cancelled 09/20/19 14:20: Urine Color Yellow, Urine Clarity Sl. Cloudy, Urine pH 5.0, Ur Specific [place] 1.015, Urine Protein 30 H, Urine Glucose (UA) Normal, Urine Ketones Negative, Urine Occult Blood 10 H, Urine Nitrite Negative, Urine Bilirubin 1 H, Urine Urobilinogen Normal, Ur Leukocyte Esterase 500 H, Urine RBC 0 SEEN, Urine WBC 5-10 SEEN, Ur Squamous Epith Cells 0 SEEN, Ur Transition Epith Cell 0 SEEN, Urine Bacteria RARE, Urine Mucus 0 SEEN, Urine Yeast RARE Diagnostic Data Abdomen/Pelvis CT 09/20/19 13:58 IMPRESSION: No acute abdominal or pelvic pathology demonstrated on this noncontrast CT. Stable nonacute findings, as above. Electronically Signed: Darryl Neff, at 15:01 EST Tel , Service support , Chest X-Ray 09/20/19 13:59 IMPRESSION: No acute cardiopulmonary disease. Electronically Signed: Francisco Long DO at 16:19 EST Tel [phone], Service support , Gallbladder Ultrasound 09/20/19 15:24 IMPRESSION: 1. Gallstones with mild wall thickening and positive Lau''s sign. The findings suggest acute cholecystitis. 2. Fatty infiltration of the liver. 3. Right renal calculi as noted on the recent CT. N.B. : The above information has been verbally conveyed by Francisco Long DO to Brayan Caballero MD, on 09/20/2019 16:47:31 (ET). Electronically Signed: Francisco Long DO at 16:49 EST Tel [phone], Service support , ADDENDUM: 09/20/19 [id number] IMPRESSION: 1. Gallstones with mild wall thickening and positive Lau''s sign. The findings suggest acute cholecystitis. 2. Fatty infiltration of the liver. 3. Right renal calculi as noted on the recent CT. N.B. : The above information has been verbally conveyed by Francisco Long DO to Brayan Caballero MD, on 09/20/2019 16:47:31 (ET). Electronically Signed: Francisco Long DO at 16:49 EST Tel [phone], Service support , Assessment/Plan All Active Problems Renal calculi (Acute) 69 y/o admitted with a complaint of worsening abdominal pain. 1. Acute cholelithiasis * admit to [facility] surg with telemetry * Gallbladder USG: mild wall thickening, and multiple gallstones, fatty liver and right renal calculi * C T scan showed right renal calculi and gallstones * put on full liquid diet * hydrate with iVF NS ~ 125cc/hr * general surgery consulted * she has no leucocytosis * liver enzymes are however mildly elevated; AST/ALT of 42/62, and ALP of 210, total bilirubin is 0.5 * will await general surgery rec's- per Dr Hernandez, his review of the CT had him more concerned about some visible loops of bowel. In light of patient having had a gastric bypass surgery in the 80s for obesity, he would want to consider an EGD tomorrow to assess; iF EGD is negative, to have cholecystectomy on Sunday * start on IV ciprofloxacin and IV metronidazole; patient is allergic to penicillins and cephalosporins * 2. 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 To monitor, and follow up with nephrology * on sodium bicarb 650mg bid. * 3. Hypertension: On amlodipine 5 mg daily. IV hydralazine PRN. 4. History of recurrent kidney stones * She states she has had repeated lithotripsies and stools are usually calcium stones. * Follow-up with Dr. Louis on outpatient basis. * DVT prophylaxis: lovenox Code Visit Inpatient E&M: 03028 Init Hosp L3
--- NOTE | 2019-09-20 17:54 | NURSING ---
MED SURG ACUTE CHOLECYSTITIS [facility]
--- NOTE | 2019-09-20 18:09 | NURSING ---
DR DAMON AND DR ROSENTHAL IN ROOM
--- NOTE | 2019-09-20 18:23 | CT_ITS ---
STUDY: CT ABDOMEN AND PELVIS WITHOUT CONTRAST REASON FOR EXAM: Female, 69 years old. Right-sided abdominal pain x1 month RADIATION DOSAGE (If Supplied By Facility): CTDIvol = ( 10.62 ) mGy, DLP = ( 549.34 ) mGycm TECHNIQUE: Transaxial images were obtained from the dome of the diaphragm to the symphysis pubis with oral contrast, and without intravenous contrast. Sagittal and coronal images were reconstructed. Individualized dose optimization techniques were used for this CT. COMPARISON: Previous study of 09/20/2019 FINDINGS: The visualized lung bases are unremarkable. The heart size is within normal limits. There is no pericardial effusion. Coronary arterial calcifications are present. The left hemidiaphragm is elevated. Normal liver. There is a solitary gallstone. Normal spleen. Normal pancreas. Normal bilateral adrenal glands. There are numerous nonobstructing right renal calculi measuring up to 9 mm. There are numerous nonobstructing left renal calculi measuring up to 6 mm. There is a lower pole cyst measuring 2.5 x 3.2 cm. Normal visualized stomach. There is wall thickening of terminal ileum. There is a large colonic stool burden. There is non-visualization of the appendix. There are calcified plaques of the abdominal aorta. Normal inferior vena cava. Normal retroperitoneum. Normal urinary bladder. Uterus and adnexal structures are unremarkable. Normal abdominal wall. There are degenerative changes of the visualized thoracolumbar spine. There is a grade 1 anterolisthesis of L4 relative to L5. CT/Abdomen/Pel W ORAL Cont Only IMPRESSION: 1. Wall thickening of the terminal ileum which may represent regional enteritis. 2. Elevated left hemidiaphragm. 3. Cholelithiasis. 4. Nonobstructing bilateral renal calculi. 5. Large colonic stool burden consistent with constipation. 6. Degenerative changes of the visualized thoracolumbar spine. 7. There is no evidence of free intra-abdominal or intrapelvic air or fluid. Electronically Signed: Сергей Moreland MD at 23:03 EST , Service support ,
--- NOTE | 2019-09-20 18:46 | CON.PCM_ITS ---
Reason for Consult Date of Consultation: 09/20/19 Reason for Consultation: abdominal pain, failure to thrive History of Present Illness: The patient is a 69 year old F who presents with complaint of right-sided abdominal pain and overall failure to thrive and GI issues. The patient has noted pain for at least one month. She notes the pain has been gradually worsening. When asked what caused her to come into the emergency room today specifically she stated it wasn't that the pain was more severe she was just frustrated that these issues were continuing. She states the pain started a few months previously. She denies that the pain is related to eating food but she feels that overall she has lost her appetite and has some degree of anorexia. He states food just doesn't taste that could do anymore and she doesn't feel like eating. She denies fever or chills. She does note some nausea. She denies vomiting. She notes that she has had looser and more frequent stools recently. She denies blood in her stools or black tarry stools. She notes the pain is somewhat colicky. It seems to be more on the right side. She presented to [facility] emergency department. Initial evaluation had no true discrete findings. aperture studies were obtained which demonstrated a white blood cell count of 8.9. There was a mild left shift. The patient had mild normocytic anemia. BUN and creatinine were 65 and 3.4. Electrolytes were relatively unremarkable except for low carbon dioxide. Total bilirubin was normal.transaminases and alkaline phosphatase are mildly elevated. the patient had a noncontrast CT scan of the abdomen pelvis obtained. This demonstrated: IMPRESSION: No acute abdominal or pelvic pathology demonstrated on this noncontrast CT. Stable nonacute findings, as above. gallbladder ultrasound was then obtained. This demonstrated: IMPRESSION: 1. Gallstones with mild wall thickening and positive Lau''s sign. The findings suggest acute cholecystitis. 2. Fatty infiltration of the liver. 3. Right renal calculi as noted on the recent CT. The patient has a known history of kidney stones. She has had lithotripsy performed by Dr. Kwok in the past. My review the CT scan demonstrated no signs of inflammation around the gallbladder and the stone. on CT scan the small bowel emanating from the region of the stomach and then the distal small bowel appeared significantly abnormal likely thickened. My review the ultrasound demonstrated that very minimal to no true wall thickening. Upon further questioning, the patient initially forgot this previous surgical procedure but had undergone obesity surgery in the 1970s. I asked which type of surgery and the phrase duodenal switch seemed to be the surgical procedure she remembered area did she also recalls she had appendectomy performed during the procedure. repeat CT scan with oral contrast was obtained. This demonstrated: MPRESSION: 1. Wall thickening of the terminal ileum which may represent regional enteritis. 2. Elevated left hemidiaphragm. 3. Cholelithiasis. 4. Nonobstructing bilateral renal calculi. 5. Large colonic stool burden consistent with constipation. 6. Degenerative changes of the visualized thoracolumbar spine. 7. There is no evidence of free intra-abdominal or intrapelvic air or fluid. My review the CAT scan demonstrates significant thickening of the terminal ileum entering into the cecum. To me there seems to be significant distention of a longer segment of small bowel/ileum proximal to the area of thickening which seems to be distended up to 3-1/2 cm. This tracks along the right gutter medial to the ascending colon and traverses across the abdomen. I will lose this segment somewhat below the stomach. 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 The remaining small bowel is nondistended. I assume this could be the pancreatic or biliary limb. The patient has listed a colonoscopy was performed at [facility] in 2018. Results of that report demonstrates that it was performed for abnormal GI tract on CT scan. The findings were the scope was able to advanced to the ileocecal valve but due to very poor prep and significant tortuosity it was a very limited study. I was able to speak to the on-call radiologist who we reviewed the above CT scan now with knowledge of the previous surgical procedure and agreed with the impression of significant proximal ileal distention, likely ileal thickening versus stenosis versus other mass effect. Past Medical History Past Medical History (Chronic Problems): Chronic Problems Urinary tract infection (Chronic) Allergies adhesive tape Allergy (Verified 09/20/19 13:34) Rash amoxicillin [From Augmentin] Allergy (Verified 09/20/19 13:34) Swelling cephalexin [From Keflex] Allergy (Verified 09/20/19 13:34) Swelling clavulanic acid [From Augmentin] Allergy (Verified 09/20/19 13:34) Swelling latex Allergy (Verified 09/20/19 13:34) Rash Penicillins [PCN] Allergy (Verified 09/20/19 13:34) Swelling sulfamethoxazole [From Bactrim] Allergy (Verified 09/20/19 13:34) rash,swellling, itching trimethoprim [From Bactrim] Allergy (Verified 09/20/19 13:34) rash,swellling, itching Home Medications: Ambulatory Orders Medication Instructions Recorded Amlodipine [Norvasc] 5 mg PO DAILY 04/19/18 Ciprofloxacin [Cipro] 500 mg PO DAILY #6 tab 09/20/19 Hydrocodone Bitart/Apap 5-325 1 tab PO Q4H PRN PRN 2 Days #10 tab 09/20/19 [[place] 5MG-325MG] Ondansetron [Zofran Odt] 4 mg PO Q8H PRN PRN #10 tab 09/20/19 Ranitidine [Zantac] 300 mg PO DAILY #30 tab 09/20/19 Sodium Bicarbonate 650 mg PO BID 09/20/19 Surgical History: - - 30 years ago 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 Denies: Chills, Fever, Weight Change HEENT: Denies: Head Aches, Sinus Congestion, Sinus Drainage Cardiovascular: Denies: Chest Pain, Palpitations Respiratory: Denies: Cough, Shortness of breath at rest, Sputum production Gastrointestinal: Reports: Abdominal Pain, Diarrhea, Melena. Denies: Nausea, Vomiting Genitourinary: Denies: Dysuria Musculoskeletal: Denies: Joint Pain, Joint Tenderness Skin: Denies: Rash, Wounds Neurological: Denies: Numbness, Tingling, Focal weakness Psychiatric: Denies: Anxiety, Depression, Homicidal Ideations, Suicidal Ideations Hematologic/ Lymphatic: Denies: Easy Bruising, Easy Bleeding - Physical Exam Vitals/I&O's: Vital Signs Temp Pulse Resp BP Pulse Ox 98.0 F 69 23 H 146/75 H 95 09/20/19 13:31 09/20/19 18:04 09/20/19 18:04 09/20/19 18:04 09/20/19 18:04 Oxygen Delivery Method Room Air Weight: 78.4 kg Body Mass Index (BMI) 27.1 Intake and Output for Last 24 Hours 09/18/19 09/19/19 09/20/19 23:59 23:59 23:59 Intake Total 1000 / 1000 Balance 1000 / 1000 General: Alert, Oriented x3, Cooperative Lungs: Clear to auscultation, Normal air movement Cardiovascular: Regular rate, No murmurs Abdomen: Bowel Sounds Present, Soft, Tender - in the right upper quadrant and along the right paramedian position. No peritoneal signs. No Lau sign by exam area and no CVA tenderness. A well-healed transverse incision supraumbilical which is the full width of the abdominal cavity Laboratory Results 09/20/19 14:10: WBC 8.9, RBC 3.84 L, Hgb 11.3 L, Hct 34.9 L, MCV 90.9, MCH 29.4, MCHC 32.4, RDW Std Deviation 45.0 H, RDW Coeff of [place] 13.5, Plt Count 227, MPV 12.2 H, Immature Gran % (Auto) 0.600, Neut % (Auto) 79.8 H, Lymph % (Auto) 13.4 L, [place] % (Auto) 5.0, Eos % (Auto) 0.7, Baso % (Auto) 0.5, Absolute Neuts (auto) 7.1, Absolute Lymphs (auto) 1.19, Nucleated RBC % 0 09/20/19 14:10: Sodium 140, Potassium 4.1, Chloride 115 H, Carbon Dioxide 14.0 L , Anion Gap 11, BUN 65 H, Creatinine 3.43 H, Estim Creat Clear Calc 14.84, Est GFR (MDRD) Af Amer 17 L, Est GFR (MDRD) Non-Af 14 L, BUN/Creatinine Ratio 19.0, Glucose 116 H, Calcium 9.2, Total Bilirubin 0.50, AST 42 H, ALT 62 H, Alkaline Phosphatase 210 H, Total Protein 6.8, Albumin 3.4, Globulin 3.4, Albumin/Globulin Ratio 1.0 09/20/19 14:10: Lactic Acid Cancelled 09/20/19 14:20: Urine Color Yellow, Urine Clarity Sl. 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 My initial plan was to perform upper endoscopy given the suspected history of a duodenal switch procedure to see if there were any stenoses or abnormalities from the upper endoscopy. After reviewing the contrast CT scan and reviewing outside records which demonstrated a limited colonoscopy, I would next plan to perform upper and lower endoscopy. Hopefully I'll be able to enter the terminal ileum and have direct visualization of the area and obtain terminal ileal biopsies. clinically my differential includes stenosis at the distal anastomotic site, chronic bowel changes secondary to her surgical procedure based on my findings I would consider upper GI study. If the area of the bowel appears abnormal would consider obtaining stool cultures. For now would plan to hold consideration for cholecystectomy.
[2019-09-20] MEDS: 0.9% Normal Saline 1,000 ML 125 ML IV (20:10)
[2019-09-20] MEDS: metroNIDAZOLE 500 MG/100 ML BAG 100 MG IV (20:10)
[2019-09-20] MEDS: 0.9% Saline Lock 10 ML Syringe IV (20:11)
[2019-09-20] MEDS: Ciprofloxacin 400 MG/200 ML BAG 200 MG IV (21:25)
[2019-09-20] MEDS: Sodium Bicarbonate 650 MG Tablet PO (21:25)
[2019-09-21] VITALS (11 sets, daily range): BP systolic 129–147; BP diastolic 68–81; PULSE 60–80; RESP 16–20; TEMP 36.6–36.9; O2SAT 95–98
--- NOTE | 2019-09-21 05:00 | EKG12_ITS ---
Test Reason : PREOP Blood Pressure : / mmHG Vent. Rate : 065 BPM Atrial Rate : 065 BPM P-R Int : 146 ms QRS Dur : 080 ms QT Int : 408 ms P-R-T Axes : 035 017 057 degrees QTc Int : 424 ms Normal sinus rhythm Normal ECG No previous ECGs available Confirmed by RICH SHERIFF, MANISH ([id number]), acquisitions editor JOELLEN CHOUDHARY ([id number]) on 09/21/2019 12:15:48 PM Referred By: ARIADNA Confirmed By:TAMIKA VILLANUEVA MD
[2019-09-21] MEDS: metroNIDAZOLE 500 MG/100 ML BAG 100 MG IV ×3 (05:24→22:09)
[2019-09-21 07:45] LABS: Absolute Lymphocyte Count 2.01 X10^3/uL (0.83-4.51); Absolute Neutrophil Count 3.9 X10^3/uL (2.0-7.7); Basophil# 0.07 X10^3/uL; Eosinophil# 0.16 X10^3/uL; Eosinophils% 2.4 % (0-5); Hematocrit 30.3 % (37-47); Hemoglobin 9.6 g/dL (12.0-15.0); Lymphocyte # 2.01 X10^3/ul (4.0); Mean Corp Hgb Conc 31.7 g/dL (32-36); Mean Corpuscular Volume 91.5 fL (81-99); Mean Platelet Vol. 12.2 fl (6.2-12.0); Monocyte# 0.52 X10^3/uL; Monocyte% 7.7 % (0-10); NRBC Flagged by Analyzer 0 % (0-5); Neutrophil # 3.91 X10^3/uL (2.7-7.7); Neutrophil % 58.3 % (47-70); Platelet Count 192 K/mm3 (150-450); RBC Distribution Width CV 13.3 % (11.6-14.6); RBC Distribution Width SD 44.6 fl (35.1-43.9); Red Blood Count 3.31 M/mm3 (4.2-5.4); White Blood Count 6.7 K/mm3 (4.4-11.0)
[2019-09-21 08:01] LABS: Anion Gap 8 (5-15); BUN 54 mg/dL (7-18); Calcium,Total 8.5 mg/dL (8.5-10.1); Chloride 121 mmol/L (98-107); EST Glomerular Filtration Rate 16 mL/min (>60); Est Glom Filt Rate - Afr Amer 20 mL/min (>60); Estimated Creatinine Clearance 16.97 ml/min; Glucose 97 mg/dL (74-106); Potassium 4.1 mmol/L (3.5-5.1); Sodium Level 144 mmol/L (136-145)
[2019-09-21] MEDS: 0.9% Normal Saline 1,000 ML 125 ML IV (08:04)
--- NOTE | 2019-09-21 10:07 | PN.SURG_ITS ---
Subjective: still right-sided abdominal pain, no specific nausea or vomiting, tolerating liquids - Physical Exam Vitals/I&O's: Vital Signs Temp Pulse Resp BP Pulse Ox 98.4 F 64 18 129/68 H 97 09/21/19 05:30 09/21/19 08:03 09/21/19 05:30 09/21/19 05:30 09/21/19 05:30 Oxygen Delivery Method Room Air Weight: 78.154 kg Body Mass Index (BMI) 26.9 Intake and Output for Last 24 Hours 09/19/19 09/20/19 09/21/19 23:59 23:59 23:59 Intake Total 1300 / 1300 1575.0 / 1575.0 Output Total 300 / 300 Balance 1300 / 1300 1275.0 / 1275.0 General: Alert, Oriented x3, Cooperative Lungs: Clear to auscultation, Normal air movement Cardiovascular: Regular rate, Regular Rhythm Abdomen: Bowel Sounds Present, Soft, Tender - mildly entire right side, still negative Lau sign Laboratory Results 09/20/19 14:10: WBC 8.9, RBC 3.84 L, Hgb 11.3 L, Hct 34.9 L, MCV 90.9, MCH 29.4, MCHC 32.4, RDW Std Deviation 45.0 H, RDW Coeff of [place] 13.5, Plt Count 227, MPV 12.2 H, Immature Gran % (Auto) 0.600, Neut % (Auto) 79.8 H, Lymph % (Auto) 13.4 L, [place] % (Auto) 5.0, Eos % (Auto) 0.7, Baso % (Auto) 0.5, Absolute Neuts (auto) 7.1, Absolute Lymphs (auto) 1.19, Nucleated RBC % 0 09/20/19 14:10: Sodium 140, Potassium 4.1, Chloride 115 H, Carbon Dioxide 14.0 L , Anion Gap 11, BUN 65 H, Creatinine 3.43 H, Estim Creat Clear Calc 14.84, Est GFR (MDRD) Af Amer 17 L, Est GFR (MDRD) Non-Af 14 L, BUN/Creatinine Ratio 19.0, Glucose 116 H, Calcium 9.2, Total Bilirubin 0.50, AST 42 H, ALT 62 H, Alkaline Phosphatase 210 H, Total Protein 6.8, Albumin 3.4, Globulin 3.4, Albumin/Globulin Ratio 1.0 09/20/19 14:10: Lactic Acid Cancelled 09/20/19 14:20: Urine Color Yellow, Urine Clarity Sl. Cloudy, Urine pH 5.0, Ur Specific [place] 1.015, Urine Protein 30 H, Urine Glucose (UA) Normal, Urine Ketones Negative, Urine Occult Blood 10 H, Urine Nitrite Negative, Urine Bilirubin 1 H, Urine Urobilinogen Normal, Ur Leukocyte Esterase 500 H, Urine RBC 0 SEEN, Urine WBC 5-10 SEEN, Ur Squamous Epith Cells 0 SEEN, Ur Transition Epith Cell 0 SEEN, Urine Bacteria RARE, Urine Mucus 0 SEEN, Urine Yeast RARE 09/21/19 07:25: WBC 6.7, RBC 3.31 L, Hgb 9.6 L, Hct 30.3 L, MCV 91.5, MCH 29.0, MCHC 31.7 L, RDW Std Deviation 44.6 H, RDW Coeff of [place] 13.3, Plt Count 192, MPV 12.2 H, Immature Gran % (Auto) 0.600, Neut % (Auto) 58.3, Lymph % (Auto) 30.0, [place] % (Auto) 7.7, Eos % (Auto) 2.4, Baso % (Auto) 1.0, Absolute Neuts (auto) 3.9, Absolute Lymphs (auto) 2.01, Nucleated RBC % 0 09/21/19 07:25: Sodium 144, Potassium 4.1, Chloride 121 H, Carbon Dioxide 15.0 L , Anion Gap 8, BUN 54 H, Creatinine 3.00 H, Estim Creat Clear Calc 16.97, Est GFR (MDRD) Af Amer 20 L, Est GFR (MDRD) Non-Af 16 L, BUN/Creatinine Ratio 18.0, Glucose 97, Calcium 8.5 Current Medications Acetaminophen (Tylenol) 650 mg PO Q6H PRN PRN PRN Reason: Pain Score 1-3/Temp > 100.7 F Amlodipine Besylate (Norvasc) 5 mg PO DAILY [facility] Dextrose (D50w Syringe) 0 gm IV X1 PRN; Protocol PRN Reason: Hypoglycemia Enoxaparin Sodium (Lovenox) 30 mg SC DAILY [facility] Glucagon () 1 mg IM .X1 PRN PRN Reason: Hypoglycemia Sodium Chloride () 1,000 mls @ 125 mls/hr IV .Q8H [facility] Stop: 09/21/19 10:49 Last Admin: 09/21/19 08:04 Dose: 125 mls/hr Documented by: Ciprofloxacin (Cipro) 400 mg in 200 mls @ 200 mls/hr IV Q24H [facility] Last Infusion: 09/20/19 22:55 Dose: Infused Documented by: Metronidazole (Flagyl) 500 mg in 100 mls @ 100 mls/hr IV Q8 [facility] Last Infusion: 09/21/19 06:41 Dose: Infused Documented by: Sodium Chloride () 250 mls @ 15 mls/hr IV .[id number] PRN PRN Reason: Saline Flush Nutritional Formula (Lactose Free) (Ensure Enlive) 120 ml PO 4X/DAY [facility] Ondansetron HCl (Zofran) 4 mg IV Q8H PRN PRN PRN Reason: NAUSEA/VOMITING Sodium Bicarbonate (Sodium Bicarbonate) 650 mg PO BID [facility] Last Admin: 09/20/19 21:25 Dose: 650 mg Documented by: Sodium Chloride () 10 - 40 ml IV UD PRN PRN Reason: SALINE FLUSH Last Admin: 09/20/19 20:11 Dose: 10 ml Documented by: Sodium Chloride/Electrolytes (Nulytely) 4,000 ml PO X1 [facility] Stop: 09/21/19 10:08 Medical Necessity - Tobacco Use Smoking Status: Never smoker Assessment/Plan All Active Problems Renal calculi (Acute) malaise, fatigue, right sided abdominal pain, 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 My initial plan was to perform upper endoscopy given the suspected history of a duodenal switch procedure to see if there were any stenoses or abnormalities from the upper endoscopy. After reviewing the contrast CT scan and reviewing outside records which demonstrated a limited colonoscopy, I would next plan to perform upper and lower endoscopy. Hopefully I'll be able to enter the terminal ileum and have direct visualization of the area and obtain terminal ileal biopsies. clinically my differential includes stenosis at the distal anastomotic site, chronic bowel changes secondary to her surgical procedure based on my findings I would consider upper GI study. If the area of the bowel appears abnormal would consider obtaining stool cultures. For now would plan to hold consideration for cholecystectomy. . We'll try to obtain CT scan report from last year from [facility]
[2019-09-21] MEDS: Enoxaparin 30 MG/0.3 ML Syringe SC (11:16)
[2019-09-21] MEDS: Sodium Bicarbonate 650 MG Tablet PO ×2 (11:16→21:04)
[2019-09-21] MEDS: amLODIPine 5 MG Tablet PO (11:16)
[2019-09-21] MEDS: Electrolyte Solution/Peg's 4000 ML PO (11:30)
--- NOTE | 2019-09-21 14:10 | PCM.PROGNOTE ---
<RichardShelby - Last Filed: 09/21/19 14:31> Subjective: Patient seen and examined. Abdominal pain currently improved. Tolerating clear liquid diet. Right-sided abdominal tenderness on exam. Plan for upper and lower endoscopy tomorrow. - Physical Exam Vitals/I&O's: Vital Signs Temp Pulse Resp BP Pulse Ox 98 F 64 20 H 133/70 H 95 09/21/19 11:00 09/21/19 13:12 09/21/19 11:00 09/21/19 11:00 09/21/19 11:00 Oxygen Delivery Method Room Air Weight: 172 lb 4.8 oz Body Mass Index (BMI) 26.9 Intake and Output for Last 24 Hours 09/19/19 09/20/19 09/21/19 23:59 23:59 23:59 Intake Total 1300 / 1300 2055.0 / 2055.0 Output Total 1300 / 1300 Balance 1300 / 1300 755.0 / 755.0 General: Alert, Oriented x3, Cooperative HEENT: Atraumatic, PERRLA, EOMI, Normocephalic Neck: Supple, No JVD, Negative Carotid Bruits Lungs: Clear to auscultation, Normal air movement Cardiovascular: Regular rate, Regular Rhythm, Normal S1, Normal S2, No murmurs Abdomen: Bowel Sounds Present, Soft, Non-Distended, Tender - right sided Extremities: No clubbing, No cyanosis, No edema, Capillary Refill Less than 3 Seconds Skin: No rashes, No breakdown Musculoskeletal: No Tenderness to Palpation of Joints or Extremities Neurological: Cranial nerves II-XII grossly intact, Neuro grossly intact Psych/Mental Status: Normal Affect, Appropriate Laboratory Results 09/20/19 14:10: WBC 8.9, RBC 3.84 L, Hgb 11.3 L, Hct 34.9 L, MCV 90.9, MCH 29.4, MCHC 32.4, RDW Std Deviation 45.0 H, RDW Coeff of [place] 13.5, Plt Count 227, MPV 12.2 H, Immature Gran % (Auto) 0.600, Neut % (Auto) 79.8 H, Lymph % (Auto) 13.4 L, [place] % (Auto) 5.0, Eos % (Auto) 0.7, Baso % (Auto) 0.5, Absolute Neuts (auto) 7.1, Absolute Lymphs (auto) 1.19, Nucleated RBC % 0 09/20/19 14:10: Sodium 140, Potassium 4.1, Chloride 115 H, Carbon Dioxide 14.0 L, Anion Gap 11, BUN 65 H, Creatinine 3.43 H, Estim Creat Clear Calc 14.84, Est GFR (MDRD) Af Amer 17 L, Est GFR (MDRD) Non-Af 14 L, BUN/Creatinine Ratio 19.0, Glucose 116 H, Calcium 9.2, Total Bilirubin 0.50, AST 42 H, ALT 62 H, Alkaline Phosphatase 210 H, Total Protein 6.8, Albumin 3.4, Globulin 3.4, Albumin/Globulin Ratio 1.0 09/20/19 14:10: Lactic Acid Cancelled 09/20/19 14:20: Urine Color Yellow, Urine Clarity Sl. Cloudy, Urine pH 5.0, Ur Specific [place] 1.015, Urine Protein 30 H, Urine Glucose (UA) Normal, Urine Ketones Negative, Urine Occult Blood 10 H, Urine Nitrite Negative, Urine Bilirubin 1 H, Urine Urobilinogen Normal, Ur Leukocyte Esterase 500 H, Urine RBC 0 SEEN, Urine WBC 5-10 SEEN, Ur Squamous Epith Cells 0 SEEN, Ur Transition Epith Cell 0 SEEN, Urine Bacteria RARE, Urine Mucus 0 SEEN, Urine Yeast RARE 09/21/19 07:25: WBC 6.7, RBC 3.31 L, Hgb 9.6 L, Hct 30.3 L, MCV 91.5, MCH 29.0, MCHC 31.7 L, RDW Std Deviation 44.6 H, RDW Coeff of [place] 13.3, Plt Count 192, MPV 12.2 H, Immature Gran % (Auto) 0.600, Neut % (Auto) 58.3, Lymph % (Auto) 30.0, [place] % (Auto) 7.7, Eos % (Auto) 2.4, Baso % (Auto) 1.0, Absolute Neuts (auto) 3.9, Absolute Lymphs (auto) 2.01, Nucleated RBC % 0 09/21/19 07:25: Sodium 144, Potassium 4.1, Chloride 121 H, Carbon Dioxide 15.0 L, Anion Gap 8, BUN 54 H, Creatinine 3.00 H, Estim Creat Clear Calc 16.97, Est GFR (MDRD) Af Amer 20 L, Est GFR (MDRD) Non-Af 16 L, BUN/Creatinine Ratio 18.0, Glucose 97, Calcium 8.5 Current Medications Acetaminophen (Tylenol) 650 mg PO Q6H PRN PRN PRN Reason: Pain Score 1-3/Temp > 100.7 F Amlodipine Besylate (Norvasc) 5 mg PO DAILY [facility] Last Admin: 09/21/19 11:16 Dose: 5 mg Documented by: Dextrose (D50w Syringe) 0 gm IV X1 PRN; Protocol PRN Reason: Hypoglycemia Enoxaparin Sodium (Lovenox) 30 mg SC DAILY [facility] Last Admin: 09/21/19 11:16 Dose: 30 mg Documented by: Glucagon () 1 mg IM .X1 PRN PRN Reason: Hypoglycemia Ciprofloxacin (Cipro) 400 mg in 200 mls @ 200 mls/hr IV Q24H [facility] Last Infusion: 09/20/19 22:55 Dose: Infused Documented by: Metronidazole (Flagyl) 500 mg in 100 mls @ 100 mls/hr IV Q8 [facility] Last Infusion: 09/21/19 06:41 Dose: Infused Documented by: Sodium Chloride () 250 mls @ 15 mls/hr IV .[id number] PRN PRN Reason: Saline Flush Nutritional Formula (Lactose Free) (Ensure Enlive) 120 ml PO 4X/DAY [facility] Last Admin: 09/21/19 10:55 Dose: Not Given Documented by: Ondansetron HCl (Zofran) 4 mg IV Q8H PRN PRN PRN Reason: NAUSEA/VOMITING Sodium Bicarbonate (Sodium Bicarbonate) 650 mg PO BID [facility] Last Admin: 09/21/19 11:16 Dose: 650 mg Documented by: Sodium Chloride () 10 - 40 ml IV UD PRN PRN Reason: SALINE FLUSH Last Admin: 09/20/19 20:11 Dose: 10 ml Documented by: Medical Necessity - Tobacco Use Smoking Status: Never smoker Assessment/Plan All Active Problems Renal calculi (Acute) 1. Acute on chronic abdominal pain-CT of abdomen and pelvis on admission shows no acute process. 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 General surgery on consult. Plan for upper and lower endoscopy tomorrow. On IV Cipro and IV Flagyl empirically. 2. Stage IV chronic kidney disease- follows with nephrology. Stable. Continue sodium bicarb. 3. Hypertension-stable, continue amlodipine regimen. 4. History of recurrent kidney stones- lithotripsy in the past by Dr. Kwok. 5. Chronic normocytic anemia-stable, trend CBC. DVT prophylaxis- lovenox sc This patient was seen by JUAN Landrum under the supervision of Dr. Bhatti. <DavyTimothy - Last Filed: 09/21/19 14:56> Subjective: Seen and examined. Patient was seen by Dr. Rodas. Complain of abdominal pain which is more than 1 month right-sided on and off, colicky in nature. Patient is only has loose bowel movement about 4 times after gastric bypass surgery but for last 2 to 3 days she is having liquid watery consistency about 6 times. No fever or chills. Currently tolerating clear liquid diet. 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 - Physical Exam Vitals/I&O's: Vital Signs Temp Pulse Resp BP Pulse Ox 98 F 64 20 H 133/70 H 95 09/21/19 11:00 09/21/19 13:12 09/21/19 11:00 09/21/19 11:00 09/21/19 11:00 Oxygen Delivery Method Room Air Weight: 172 lb 4.8 oz Body Mass Index (BMI) 26.9 Intake and Output for Last 24 Hours 09/19/19 09/20/19 09/21/19 23:59 23:59 23:59 Intake Total 1300 / 1300 2055.0 / 2055.0 Output Total 1300 / 1300 Balance 1300 / 1300 755.0 / 755.0 General: Alert, Oriented x3, Cooperative HEENT: Atraumatic, PERRLA, EOMI, Normocephalic Neck: Supple, No JVD, Negative Carotid Bruits Lungs: Clear to auscultation, Normal air movement, No rhonchi, No wheeze, No rales Cardiovascular: Regular rate, Regular Rhythm, Normal S1, Normal S2, No murmurs Abdomen: Bowel Sounds Present, Soft, Non Tender, No Hepato-splenomegaly, Tender - right sided Right upper quadrant tenderness present. No guarding/rigidity. No rebound tenderness. Extremities: No edema, Capillary Refill Less than 3 Seconds Skin: No rashes, No breakdown Musculoskeletal: No Tenderness to Palpation of Joints or Extremities, Arthritic Changes Neurological: Cranial nerves II-XII grossly intact, Deep Tendon Reflexes 2+/4 and Symmetrical, Neuro grossly intact Psych/Mental Status: Normal Affect, Appropriate Laboratory Results 09/20/19 14:10: Lactic Acid Cancelled 09/21/19 07:25: WBC 6.7, RBC 3.31 L, Hgb 9.6 L, Hct 30.3 L, MCV 91.5, MCH 29.0, MCHC 31.7 L, RDW Std Deviation 44.6 H, RDW Coeff of [place] 13.3, Plt Count 192, MPV 12.2 H, Immature Gran % (Auto) 0.600, Neut % (Auto) 58.3, Lymph % (Auto) 30.0, [place] % (Auto) 7.7, Eos % (Auto) 2.4, Baso % (Auto) 1.0, Absolute Neuts (auto) 3.9, Absolute Lymphs (auto) 2.01, Nucleated RBC % 0 09/21/19 07:25: Sodium 144, Potassium 4.1, Chloride 121 H, Carbon Dioxide 15.0 L, Anion Gap 8, BUN 54 H, Creatinine 3.00 H, Estim Creat Clear Calc 16.97, Est GFR (MDRD) Af Amer 20 L, Est GFR (MDRD) Non-Af 16 L, BUN/Creatinine Ratio 18.0, Glucose 97, Calcium 8.5 Current Medications Acetaminophen (Tylenol) 650 mg PO Q6H PRN PRN PRN Reason: Pain Score 1-3/Temp > 100.7 F Amlodipine Besylate (Norvasc) 5 mg PO DAILY [facility] Last Admin: 09/21/19 11:16 Dose: 5 mg Documented by: Dextrose (D50w Syringe) 0 gm IV X1 PRN; Protocol PRN Reason: Hypoglycemia Enoxaparin Sodium (Lovenox) 30 mg SC DAILY [facility] Last Admin: 09/21/19 11:16 Dose: 30 mg Documented by: Glucagon () 1 mg IM .X1 PRN PRN Reason: Hypoglycemia Ciprofloxacin (Cipro) 400 mg in 200 mls @ 200 mls/hr IV Q24H [facility] Last Infusion: 09/20/19 22:55 Dose: Infused Documented by: Metronidazole (Flagyl) 500 mg in 100 mls @ 100 mls/hr IV Q8 [facility] Last Admin: 09/21/19 14:14 Dose: 100 mls/hr Documented by: Sodium Chloride () 250 mls @ 15 mls/hr IV .[id number] PRN PRN Reason: Saline Flush Nutritional Formula (Lactose Free) (Ensure Enlive) 120 ml PO 4X/DAY [facility] Last Admin: 09/21/19 14:11 Dose: Not Given Documented by: Ondansetron HCl (Zofran) 4 mg IV Q8H PRN PRN PRN Reason: NAUSEA/VOMITING Sodium Bicarbonate (Sodium Bicarbonate) 650 mg PO BID [facility] Last Admin: 09/21/19 11:16 Dose: 650 mg Documented by: Sodium Chloride () 10 - 40 ml IV UD PRN PRN Reason: SALINE FLUSH Last Admin: 09/20/19 20:11 Dose: 10 ml Documented by: Assessment/Plan This patient was seen in conjunction with Shelby CHRISTINE. I have independently interviewed and examined the patient and reviewed pertinent history, examination findings, laboratory and plan of management. I have reviewed the note and agree with the documented findings with the few additional points. In brief, patient is admitted for chronic abdominal pain, colicky nature for about [address] abdomen shows wall thickening of terminal ileum and possible also duodenum. Dr. Rodas saw the patient. He discussed with the surgeon who did gastric bypass surgery. CT abdomen also shows cholelithiasis with nonobstructing bilateral renal calculi. Plan is for EGD and colonoscopy tomorrow. Right upper quadrant sonogram shows GB with mild wall thickening and positive Lau sign but Dr. Rodas thinks is more related to the bowel issues. Other chronic comorbidities as mentioned above. 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 I have discussed my assessment with Shelby CHRISTINE and orders have been reviewed. Clinical Impression(s) from Imaging Studies Abdomen/Pelvis CT 09/20/19 13:58 IMPRESSION: No acute abdominal or pelvic pathology demonstrated on this noncontrast CT. Stable nonacute findings, as above. Chest X-Ray 09/20/19 13:59 IMPRESSION: No acute cardiopulmonary disease. Gallbladder Ultrasound 09/20/19 15:24 IMPRESSION: 1. Gallstones with mild wall thickening and positive Lau''s sign. The findings suggest acute cholecystitis. 2. Fatty infiltration of the liver. 3. Right renal calculi as noted on the recent CT. Abdomen CT 09/20/19 18:23 IMPRESSION: 1. Wall thickening of the terminal ileum which may represent regional enteritis. 2. Elevated left hemidiaphragm. 3. Cholelithiasis. 4. Nonobstructing bilateral renal calculi. 5. Large colonic stool burden consistent with constipation. 6. Degenerative changes of the visualized thoracolumbar spine. 7. There is no evidence of free intra-abdominal or intrapelvic air or fluid. Code Visit Inpatient E&M: 40200 Subs Hosp L2
[2019-09-21] MEDS: 0.9% Normal Saline 1,000 ML 50 ML IV (15:48)
[2019-09-21] MEDS: Ciprofloxacin 400 MG/200 ML BAG 200 MG IV (21:04)
[2019-09-22] VITALS (13 sets, daily range): BP systolic 112–146; BP diastolic 59–82; PULSE 59–78; RESP 16–20; TEMP 35.9–37.1; O2SAT 96–100
--- NOTE | 2019-09-22 | IMM_PTH ---
PATIENT: CHRISTIANO AWAD LOC: MS3 U#:[id number] AGE/SX: 69/F ROOM: AL308 RE09/20/[address]: Dr. Bernardino Borrero DO : 1950 BED: 1 DIS: 09/23/2019 SPEC #: [id number] RECD: 09/23/19 14:53 STATUS: BRITTANY REYasmine #: [id number] MONICA: 09/22/19 00:[address]: Arden Hernandez DEPT: IMMUNOHISTOCHEMISTRY RECD BY: Daniella Bowens ENTERED: 09/23/19 14:54 SP TYPE: IMMUNO OTHR DR: DO Dr. Jewell Mckeon DO Dr. Nana Yaa Koram, MD Tissues: Gastric mucous membrane Procedures: H Pylori (initial) PHYSICIAN & INSTITUTION [place] [id number] SPECIMEN INFORMATION: Tissue Source: B. Antrum biopsy Clinical Info: Right sided abdominal pain, n/v Specimen Number: [id number] CPT code: 94403 METHODOLOGY: Deparaffinized sections of prefer/formalin-fixed tissue or PAP/DQ stained slides are incubated with monoclonal/polyclonal antibodies/oligonucleotide probes. Localization is made via biotin free immunoperoxidase method. Appropriate controls are performed and reacted as expected. Results on target cell population are indicated in the following table: RESULTS: ANTIBODY / CLONE RESULT H Pylori (polyclonal) negative These tests were developed and their performance characteristics determined by [facility]. They may not have been cleared or approved by the U.S. Food and Drug Administration. The FDA has determined that such clearance or approval is not necessary. INTERPRETATION: Antral biopsy: Negative for Helicobacter pylori organisms. SJ:peter 09/24/19
[2019-09-22] MEDS: 0.9% Normal Saline 1,000 ML 50 ML IV ×2 (02:06→15:57)
--- NOTE | 2019-09-22 05:15 | NURSING ---
Soap suds enema given per MD order. Pt tolerated well. BSC placed at bedside. Pt encouraged to call for help if needed.
[2019-09-22] MEDS: Bisacodyl 5 MG Tablet PO (05:23)
[2019-09-22] MEDS: metroNIDAZOLE 500 MG/100 ML BAG 100 MG IV ×3 (05:23→21:25)
[2019-09-22 05:46] LABS: Hematocrit 29.1 % (37-47); Hemoglobin 9.2 g/dL (12.0-15.0); Mean Corp Hgb Conc 31.6 g/dL (32-36); Mean Corpuscular Hgb 28.8 pg (27.0-32.0); Mean Corpuscular Volume 90.9 fL (81-99); Mean Platelet Vol. 12.5 fl (6.2-12.0); Platelet Count 179 K/mm3 (150-450); RBC Distribution Width CV 13.3 % (11.6-14.6); RBC Distribution Width SD 44.3 fl (35.1-43.9); White Blood Count 5.6 K/mm3 (4.4-11.0)
[2019-09-22 06:18] LABS: Anion Gap 8 (5-15); BUN 39 mg/dL (7-18); BUN/Creat Ratio 13.6 RATIO (10-20); Calcium,Total 8.6 mg/dL (8.5-10.1); Chloride 118 mmol/L (98-107); Creatinine, Serum 2.87 mg/dL (0.55-1.02); EST Glomerular Filtration Rate 17 mL/min (>60); Est Glom Filt Rate - Afr Amer 21 mL/min (>60); Estimated Creatinine Clearance 17.74 ml/min; Glucose 97 mg/dL (74-106); Potassium 4.2 mmol/L (3.5-5.1); Sodium Level 144 mmol/L (136-145)
[2019-09-22 08:28] LABS: AST(SGOT) 43 U/L (15-37); Alanine Aminotransfer ALT/SGPT 60 U/L (13-56); Albumin, Serum 2.8 g/dL (3.2-5.0); Alkaline Phosphatase 160 U/L (45-117); Bilirubin, Direct 0.15 mg/dL (0.00-0.30); Globulin 2.5 g/dL (2.2-4.2); Protein, Total 5.3 g/dL (6.4-8.2)
[2019-09-22] MEDS: Polyethylene Glycol 3350 BOWEL PREP 1 BOTTLE PO (08:56)
--- NOTE | 2019-09-22 10:15 | CASEMGMT ---
RN SELINA Face to Face with patient for initial transition planning/care coordination assessment. RN CM introduced self and role at [facility]. Patient lying in bed, alert and oriented. Patient willing to participate in assessment and is able to answer all questions appropriately. Care providers, pharmacy, and demographics verified. Patient wishes to discharge home, denies need for home health at this time. Patient states she has no further needs or concerns at this time. CM to follow for discharge planning needs that may arise. PCP: Kwan Specialists: Kassie, nephrology; [facility]acy: [facility] Insurance: [facility] Prescription Benefit: yes Living Will/HPOA: none LNOK: daughter, sister Living Arrangements: Patient lives with daughter and sister in 2 story home. Patient is independent at home. Transportation: self, daughter DME/HHC: Patient has shower chair and walker at home. Disposition Plan: Patient to discharge home with family support and follow-up plans in place. Katia MALIN, RN, CM
[2019-09-22] MEDS: 0.9% Saline Lock 10 ML Syringe IV ×2 (11:42→12:20)
--- NOTE | 2019-09-22 12:13 | PCM.PROGNOTE ---
<Shelby Ramos - Last Filed: 09/22/19 12:18> Subjective: Patient seen and examined. Undergoing a prep for colonoscopy later this afternoon. Reports her bowel movements have been yellow in nature and reporting nausea. Asking if it is necessary for her to drink second bottle of prep solution. Patient reports abdominal pain is improved. Denies other complaints. - Physical Exam Vitals/I&O's: Vital Signs Temp Pulse Resp BP Pulse Ox 97.7 F L 72 16 146/72 H 96 09/22/19 08:05 09/22/19 10:00 09/22/19 08:05 09/22/19 08:05 09/22/19 08:05 Oxygen Delivery Method Room Air Weight: 172 lb 4.8 oz Body Mass Index (BMI) 26.9 Intake and Output for Last 24 Hours 09/20/19 09/21/19 09/22/19 23:59 23:59 23:59 Intake Total 1300 / 1300 5225.83 / 6225.83 2579.17 / 2579.17 Output Total 1999 / 2250 3200 / 3200 Balance 1300 / 1300 3225.83 / 3975.83 -620.83 / -620.83 General: Alert, Oriented x3, Cooperative HEENT: Atraumatic, PERRLA, EOMI, Normocephalic Neck: Supple, No JVD, Negative Carotid Bruits Lungs: Clear to auscultation, Normal air movement Cardiovascular: Regular rate, Regular Rhythm, Normal S1, Normal S2, No murmurs Abdomen: Bowel Sounds Present, Soft, Non-Distended, Tender - Mild right-sided tenderness Extremities: No clubbing, No cyanosis, No edema, Capillary Refill Less than 3 Seconds Skin: No rashes, No breakdown Musculoskeletal: No Tenderness to Palpation of Joints or Extremities Neurological: Cranial nerves II-XII grossly intact, Neuro grossly intact Psych/Mental Status: Normal Affect, Appropriate Microbiology Past 72 Hours 09/20/19 14:20 Urine, Clean Catch Urine Culture - Final Mixed Gram Positive Organisms 09/22/19 05:50 Stool Stool Lactoferrin - Final 09/22/19 05:50 Stool Stool Occult Blood (LORI) - Final Laboratory Results 09/22/19 05:12: WBC 5.6, RBC 3.20 L, Hgb 9.2 L, Hct 29.1 L, MCV 90.9, MCH 28.8, MCHC 31.6 L, RDW Std Deviation 44.3 H, RDW Coeff of [place] 13.3, Plt Count 179, MPV 12.5 H 09/22/19 05:12: Sodium 144, Potassium 4.2, Chloride 118 H, Carbon Dioxide 18.0 L, Anion Gap 8, BUN 39 H, Creatinine 2.87 H, Estim Creat Clear Calc 17.74, Est GFR (MDRD) Af Amer 21 L, Est GFR (MDRD) Non-Af 17 L, BUN/Creatinine Ratio 13.6, Glucose 97, Calcium 8.6 09/22/19 05:12: Total Bilirubin 0.40, Direct Bilirubin 0.15, AST 43 H, ALT 60 H, Alkaline Phosphatase 160 H, Total Protein 5.3 L, Albumin 2.8 L, Globulin 2.5 Current Medications Acetaminophen (Tylenol) 650 mg PO Q6H PRN PRN PRN Reason: Pain Score 1-3/Temp > 100.7 F Amlodipine Besylate (Norvasc) 5 mg PO DAILY [facility] Last Admin: 09/21/19 11:16 Dose: 5 mg Documented by: Dextrose (D50w Syringe) 0 gm IV X1 PRN; Protocol PRN Reason: Hypoglycemia Enoxaparin Sodium (Lovenox) 30 mg SC DAILY [facility] Last Admin: 09/22/19 10:31 Dose: Not Given Documented by: Glucagon () 1 mg IM .X1 PRN PRN Reason: Hypoglycemia Ciprofloxacin (Cipro) 400 mg in 200 mls @ 200 mls/hr IV Q24H [facility] Last Infusion: 09/21/19 22:04 Dose: Infused Documented by: Metronidazole (Flagyl) 500 mg in 100 mls @ 100 mls/hr IV Q8 [facility] Last Infusion: 09/22/19 06:23 Dose: Infused Documented by: Sodium Chloride () 250 mls @ 15 mls/hr IV .[id number] PRN PRN Reason: Saline Flush Sodium Chloride () 1,000 mls @ 50 mls/hr IV .Q20H [facility] Last Infusion: 09/22/19 06:23 Dose: 50 mls/hr Documented by: Nutritional Formula (Lactose Free) (Ensure Enlive) 120 ml PO 4X/DAY [facility] Last Admin: 09/22/19 10:31 Dose: Not Given Documented by: Ondansetron HCl (Zofran) 4 mg IV Q8H PRN PRN PRN Reason: NAUSEA/VOMITING Sodium Bicarbonate (Sodium Bicarbonate) 650 mg PO BID [facility] Last Admin: 09/21/19 21:04 Dose: 650 mg Documented by: Sodium Chloride () 10 - 40 ml IV UD PRN PRN Reason: SALINE FLUSH Last Admin: 09/22/19 11:42 Dose: 10 ml Documented by: Medical Necessity - Tobacco Use Smoking Status: Never smoker Assessment/Plan All Active Problems Renal calculi (Acute) 1. Acute on chronic abdominal pain-CT of abdomen and pelvis on admission shows no acute process. 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 General surgery on consult. Plan for upper and lower endoscopy this afternoon. On IV Cipro and IV Flagyl empirically. Further disposition pending results of scope. 2. Stage IV chronic kidney disease- follows with nephrology. Stable. Continue sodium bicarb. 3. Hypertension-stable, continue amlodipine regimen. 4. History of recurrent kidney stones- lithotripsy in the past by Dr. Kwok. 5. Chronic normocytic anemia-stable, trend CBC. DVT prophylaxis- lovenox sc This patient was seen by JUAN Landrum under the supervision of Dr. Borrero. <Bernardino Borrero - Last Filed: 09/22/19 13:03> Subjective: Abdominal pain improved. - Physical Exam Vitals/I&O's: Vital Signs Temp Pulse Resp BP Pulse Ox 36.4 C L 73 20 H 141/59 H 96 09/22/19 12:41 09/22/19 12:41 09/22/19 12:41 09/22/19 12:41 09/22/19 12:41 Oxygen Delivery Method Room Air Weight: 78.154 kg Body Mass Index (BMI) 26.9 Intake and Output for Last 24 Hours 09/20/19 09/21/19 09/22/19 23:59 23:59 23:59 Intake Total 1300 / 1300 5225.83 / 6225.83 2579.17 / 2579.17 Output Total 1999 / 2249 3200 / 3200 Balance 1300 / 1300 3225.83 / 3975.83 -620.83 / -620.83 General: Alert, Cooperative HEENT: Atraumatic, Normocephalic Neck: No Nodes, Trachea Midline Lungs: Clear to auscultation, Normal air movement, No rhonchi, No wheeze, No rales Cardiovascular: Regular rate, Regular Rhythm, Normal S1, Normal S2, No murmurs Abdomen: Bowel Sounds Present, Soft, Non-Distended Extremities: No edema, No Calf Tenderness Psych/Mental Status: Normal Affect, Appropriate Microbiology Past 72 Hours 09/22/19 05:50 Stool Enteric Bacteriology - Final 09/20/19 14:20 Urine, Clean Catch Urine Culture - Final Mixed Gram Positive Organisms 09/22/19 05:50 Stool Stool Lactoferrin - Final 09/22/19 05:50 Stool Stool Occult Blood (LORI) - Final Laboratory Results 09/22/19 05:12: WBC 5.6, RBC 3.20 L, Hgb 9.2 L, Hct 29.1 L, MCV 90.9, MCH 28.8, MCHC 31.6 L, RDW Std Deviation 44.3 H, RDW Coeff of [place] 13.3, Plt Count 179, MPV 12.5 H 09/22/19 05:12: Sodium 144, Potassium 4.2, Chloride 118 H, Carbon Dioxide 18.0 L, Anion Gap 8, BUN 39 H, Creatinine 2.87 H, Estim Creat Clear Calc 17.74, Est GFR (MDRD) Af Amer 21 L, Est GFR (MDRD) Non-Af 17 L, BUN/Creatinine Ratio 13.6, Glucose 97, Calcium 8.6 09/22/19 05:12: Total Bilirubin 0.40, Direct Bilirubin 0.15, AST 43 H, ALT 60 H, Alkaline Phosphatase 160 H, Total Protein 5.3 L, Albumin 2.8 L, Globulin 2.5 Current Medications Acetaminophen (Tylenol) 650 mg PO Q6H PRN PRN PRN Reason: Pain Score 1-3/Temp > 100.7 F Amlodipine Besylate (Norvasc) 5 mg PO DAILY [facility] Last Admin: 09/21/19 11:16 Dose: 5 mg Documented by: Dextrose (D50w Syringe) 0 gm IV X1 PRN; Protocol PRN Reason: Hypoglycemia Enoxaparin Sodium (Lovenox) 30 mg SC DAILY [facility] Last Admin: 09/22/19 10:31 Dose: Not Given Documented by: Glucagon () 1 mg IM .X1 PRN PRN Reason: Hypoglycemia Ciprofloxacin (Cipro) 400 mg in 200 mls @ 200 mls/hr IV Q24H [facility] Last Infusion: 09/21/19 22:04 Dose: Infused Documented by: Metronidazole (Flagyl) 500 mg in 100 mls @ 100 mls/hr IV Q8 [facility] Last Infusion: 09/22/19 06:23 Dose: Infused Documented by: Sodium Chloride () 250 mls @ 15 mls/hr IV .[id number] PRN PRN Reason: Saline Flush Sodium Chloride () 1,000 mls @ 50 mls/hr IV .Q20H [facility] Last Infusion: 09/22/19 06:23 Dose: 50 mls/hr Documented by: Nutritional Formula (Lactose Free) (Ensure Enlive) 120 ml PO 4X/DAY [facility] Last Admin: 09/22/19 10:31 Dose: Not Given Documented by: Ondansetron HCl (Zofran) 4 mg IV Q8H PRN PRN PRN Reason: NAUSEA/VOMITING Sodium Bicarbonate (Sodium Bicarbonate) 650 mg PO BID [facility] Last Admin: 09/21/19 21:04 Dose: 650 mg Documented by: Sodium Chloride () 10 - 40 ml IV UD PRN PRN Reason: SALINE FLUSH Last Admin: 09/22/19 12:20 Dose: 10 ml Documented by: Assessment/Plan Patient seen and examined independently. Data reviewed. I agree with the above note by the nurse practitioner. 1. a/c abdominal pain possible enteritis v constipation v on cipro and metro EGD and coloscopy for today DW Dr. Hernandez, who feels that some changes noted maybe due to anatasmosis may need to follow up at tertiary facility for possible reanastomsis (as outpt) Greater than 35 minutes of which greater than 40% of the time was discussing with the patient about her abdominal pain, her prior to surgery and reviewing images with her, and possible outpatient referral. Code Visit Inpatient E&M: 95544 Subs Hosp L3
--- NOTE | 2019-09-22 12:59 | NURSING ---
PT TO ENDO VIA BED
--- NOTE | 2019-09-22 13:45 | EGD_PTH ---
PATIENT: CHRISTIANO AWAD LOC: [facility]3 U#:[id number] AGE/SX: 69/F ROOM: MS308 RE09/20/[address]: Dr. Bernardino Borrero DO : 1950 BED: 1 DIS: 09/23/2019 SPEC #: [id number] RECD: 09/22/19 16:47 STATUS: BRITTANY MICHELINE #: [id number] MONICA: 09/22/19 13:[address]: Arden Hernandez DEPT: SURGICAL PATHOLOGY RECD BY: Daniella Bowens ENTERED: 09/23/19 10:58 SP TYPE: EGD BIOPSY OT DR: DO Dr. Jewell Mckeon DO Dr. Nana Yaa Koram, MD Tissues: A - Gastric mucous membrane B - Gastric mucous membrane C - Gastric mucous membrane D - Esophagus, NOS E - Esophagus, NOS F - Ileum, NOS G - COLON BIOPSY H - Ascending colon Procedures: Surgery Specimen Level IV HEADER OPERATION: Colonoscopy, EGD [place] [place] PRE-OP DIAGNOSIS: Right sided abdominal pain, n/v TISSUE SUBMITTED: A. Jejunum biopsy, B. Antrum biopsy, C. Proximal jejunum biopsy, D. Distal esophagus, E. Mid esophagus, biopsy, F. Terminal ileum biopsy, G. Random colon biopsies, H. Small sessile polyp, ascending colon MICROSCOPIC DIAGNOSIS A. Distal jejunum, biopsy: A fragment of small intestinal mucosa, no pathologic diagnosis. B. Antral biopsy: Minimal gastritis. C. Proximal jejunal biopsy: A fragment of small intestinal mucosa, no pathologic diagnosis. D. Distal esophagus, biopsy: Fragments of squamous mucosa with mild chronic inflammation. E. Mid esophagus, biopsy: Fragments of squamous epithelium, no pathologic diagnosis. F. Terminal ileum, biopsy: Fragments of small intestinal mucosa, no pathologic diagnosis. G. Random biopsy: Fragments of colonic mucosa, no pathologic diagnosis. H. Sessile polyp ascending colon, biopsy: Tubular adenoma. ANGIE:rhona 09/24/19 COMMENT B. The results of immunohistochemistry for Helicobacter pylori will be reported separately ([id number]). MICROSCOPIC DESCRIPTION Slides are reviewed. B. The specimen shows fragments of gastric mucosa with chronic inflammatory cell infiltrates in the lamina propria consisting of lymphocytes and plasma cells, consistent with minimal chronic gastritis. GROSS DESCRIPTION A. Received is one container labeled with the patient name and designated distal jejunum biopsy. The specimen consists of one irregular fragment of light belle soft tissue that measures 0.3 x 0.3 x 0.1 cm. The specimen is totally submitted in one cassette. B. Received is one container labeled with the patient name and designated antral biopsy. The specimen consists of one irregular fragment of light belle soft tissue that measures 0.2 x 0.2 x 0.1 cm. The specimen is totally submitted in one cassette. C. Received is one container labeled with the patient name and designated proximal jejunal. The specimen consists of one irregular fragment of light belle soft tissue that measures 0.3 x 0.2 x 0.1 cm. The specimen is totally submitted in one cassette. D. Received is one container labeled with the patient name and designated distal esophagus biopsy. The specimen consists of multiple irregular fragments of light belle soft tissue that in aggregate measure 0.3 x 0.3 x 0.1 cm. The specimen is totally submitted in one cassette. E. Received is one container labeled with the patient name and designated mid esophagus biopsy. The specimen consists of two irregular fragments of light belle soft tissue that in aggregate measure 0.5 x 0.3 x 0.1 cm. The specimen is totally submitted in one cassette. F. Received is one container labeled with the patient name and designated terminal ileum. The specimen consists of two irregular fragments of light belle soft tissue that in aggregate measure 0.5 x 0.5 x 0.1 cm. The specimen is totally submitted in one cassette. G. Received is one container labeled with the patient name and designated random colon biopsy. The specimen consists of two irregular fragments of light belle soft tissue that in aggregate measure 0.6 x 0.6 x 0.1 cm. The specimen is totally submitted in one cassette. H. Received is one container labeled with the patient name and designated sessile polyp ascending colon. The specimen consists of one irregular fragment of light belle soft tissue that measures 0.5 x 0.4 x 0.1 cm. The specimen is totally submitted in one cassette. /AM:sp 09/23/19 TC: 1 CPT: 20377 x8
--- NOTE | 2019-09-22 15:21 | OP.EGD_ITS ---
Patient Name: Josie Eagle Procedure Date: 09/22/2019 1:39 PM Date of : 1950 Age: 69 Procedure: Upper GI endoscopy Indications: Abdominal pain, Abnormal CT of the GI tract Providers: Arden Hernandez MD Medicines: Monitored Anesthesia Care Patient Profile: This is a 69 year old female. Refer to note in patient chart for documentation of history and physical. Complications: No immediate complications. Procedure: Pre-Anesthesia Assessment: - Prior to the procedure, a History and Physical was performed, and patient medications and allergies were reviewed. The patient is competent. The risks and benefits of the procedure and the sedation options and risks were discussed with the patient. All questions were answered and informed consent was obtained. Patient identification and proposed procedure were verified by the physician, the nurse and the cashier wrapper in the procedure room. Mental Status Examination: alert and oriented. Airway Examination: normal oropharyngeal airway and neck mobility. Respiratory Examination: clear to auscultation. Prophylactic Antibiotics: The patient does not require prophylactic antibiotics. Prior Anticoagulants: The patient has taken no previous anticoagulant or antiplatelet agents. ASA Grade Assessment: III - A patient with severe systemic disease. After reviewing the risks and benefits, the patient was deemed in satisfactory condition to undergo the procedure. The anesthesia plan was to use monitored anesthesia care (MAC). Immediately prior to administration of medications, the patient was re-assessed for adequacy to receive sedatives. The heart rate, respiratory rate, oxygen saturations, blood pressure, adequacy of pulmonary ventilation, and response to care were monitored throughout the procedure. The physical status of the patient was re-assessed after the procedure. After obtaining informed consent, the endoscope was passed under direct vision. Throughout the procedure, the patient's blood pressure, pulse, and oxygen saturations were monitored continuously. The colonoscope was introduced through the mouth, and advanced to the jejunum. Small bowel enteroscopy was deemed necessary. The upper GI endoscopy was accomplished with ease. The patient tolerated the procedure well. Scope In: 2:09:50 PM Scope Out: 2:24:55 PM Total Procedure Duration Time 0 hours 15 minutes 5 seconds Findings: The examined jejunum was normal. Biopsies were taken with a cold forceps for histology. Biopsies were taken with a cold forceps for histology. at 160cm at 90cm Scattered mild inflammation with hemorrhage characterized by adherent blood, erosions and erythema was found in the gastric body. Biopsies were taken with a cold forceps for histology. The lower third of the esophagus was normal. Biopsies were taken with a cold forceps for histology. The middle third of the esophagus was normal. Impression: - Normal examined jejunum. Biopsied. - Gastritis with hemorrhage. Biopsied. - Normal lower third of esophagus. Biopsied. - Normal middle third of esophagus. Recommendation: - Return patient to [facility] for [facility] care. - Clear liquid diet. - Perform an upper GI series and small bowel follow through tomorrow. - Continue present medications. Procedure Code(s): --- Professional --- 97631, Small intestinal endoscopy, enteroscopy beyond second portion of duodenum, not including ileum; with biopsy, single or multiple CPT copyright 2017 [employer]. All rights reserved. The codes documented in this report are preliminary and upon general warehouse worker review may be revised to meet current compliance requirements. Arden Hernandez MD 09/22/2019 3:21:22 PM This report has been signed electronically. Number of Addenda: 0 Note Initiated On: 09/22/2019 1:39 PM
--- NOTE | 2019-09-22 15:25 | OP.COLON_ITS ---
Patient Name: Josie Eagle Procedure Date: 09/22/2019 2:25 PM Date of : 1950 Age: 69 Procedure: Colonoscopy Indications: Abdominal pain in the right lower quadrant, Abdominal pain in the right upper quadrant, Abnormal CT of the GI tract Providers: Arden Hernandez MD Medicines: See the other procedure note for documentation of the administered medications Patient Profile: This is a 69 year old female. Refer to note in patient chart for documentation of history and physical. Last Colonoscopy: within the past 3 years. Complications: No immediate complications. Procedure: Pre-Anesthesia Assessment: - Prior to the procedure, a History and Physical was performed, and patient medications and allergies were reviewed. The patient is competent. The risks and benefits of the procedure and the sedation options and risks were discussed with the patient. All questions were answered and informed consent was obtained. Patient identification and proposed procedure were verified by the physician, the nurse and the supervisor bit and shank department in the procedure room. Mental Status Examination: alert and oriented. Airway Examination: normal oropharyngeal airway and neck mobility. Respiratory Examination: clear to auscultation. Prophylactic Antibiotics: The patient does not require prophylactic antibiotics. Prior Anticoagulants: The patient has taken no previous anticoagulant or antiplatelet agents. ASA Grade Assessment: III - A patient with severe systemic disease. After reviewing the risks and benefits, the patient was deemed in satisfactory condition to undergo the procedure. The anesthesia plan was to use monitored anesthesia care (MAC). Immediately prior to administration of medications, the patient was re-assessed for adequacy to receive sedatives. The heart rate, respiratory rate, oxygen saturations, blood pressure, adequacy of pulmonary ventilation, and response to care were monitored throughout the procedure. The physical status of the patient was re-assessed after the procedure. After I obtained informed consent, the scope was passed under direct vision. Throughout the procedure, the patient's blood pressure, pulse, and oxygen saturations were monitored continuously. The Colonoscope was introduced through the anus and advanced to 10 cm into the ileum. The colonoscopy was performed without difficulty. The patient tolerated the procedure well. The quality of the bowel preparation was good. Scope In: 2:28:12 PM Scope Withdrawal Time 0 hours 9 minutes 55 seconds Scope Out: 3:07:49 PM Total Procedure Duration Time 0 hours 39 minutes 37 seconds Findings: The digital rectal exam findings include anal stricture. The terminal ileum appeared normal. Biopsies were taken with a cold forceps for histology. The colon (entire examined portion) appeared normal. Biopsies for histology were taken with a cold forceps from the cecum and sigmoid colon for evaluation of microscopic colitis. A small polyp was found in the ascending colon. The polyp was sessile. The polyp was removed with a cold biopsy forceps. Resection and retrieval were complete. There was a medium-sized lipoma, in the transverse colon. The retroflexed view of the distal rectum and anal verge was normal and showed no anal or rectal abnormalities. Impression: - Anal stricture found on digital rectal exam. - The examined portion of the ileum was normal. Biopsied. - The entire examined colon is normal. Biopsied. - One small polyp in the ascending colon, removed with a cold biopsy forceps. Resected and retrieved. - Medium-sized lipoma in the transverse colon. - The distal rectum and anal verge are normal on retroflexion view. Recommendation: - Return patient to [facility] for ongoing care. - Clear liquid diet. - Continue present medications. - Repeat colonoscopy is recommended. The colonoscopy date will be determined after pathology results from today's exam become available for review. Procedure Code(s): --- Professional --- 46576, Colonoscopy, flexible; with biopsy, single or multiple CPT copyright 2017 [employer]. All rights reserved. The codes documented in this report are preliminary and upon reel cart operator review may be revised to meet current compliance requirements. Arden Hernandez MD 09/22/2019 3:24:42 PM This report has been signed electronically. Number of Addenda: 0 Note Initiated On: 09/22/2019 2:25 PM
[2019-09-22] MEDS: amLODIPine 5 MG Tablet PO (15:54)
[2019-09-22] MEDS: Sodium Bicarbonate 650 MG Tablet PO ×2 (15:55→21:25)
--- NOTE | 2019-09-22 19:06 | PN.SURG_ITS ---
Subjective: with abdominal pain after bowel prep and antibiotics? - Physical Exam Vitals/I&O's: Vital Signs Temp Pulse Resp BP Pulse Ox 97.3 F L 67 16 131/71 H 99 09/22/19 15:46 09/22/19 15:46 09/22/19 15:46 09/22/19 15:46 09/22/19 15:46 Oxygen Delivery Method Room Air Weight: 78.154 kg Body Mass Index (BMI) 26.9 Intake and Output for Last 24 Hours 09/20/19 09/21/19 09/22/19 23:59 23:59 23:59 Intake Total 1300 / 1300 5225.83 / 6225.83 3515.00 / 3515.00 Output Total 1999 / 0 4550 / 4550 Balance 1300 / 1300 3225.83 / 3975.83 -1035.00 / -1035.00 General: Alert, Oriented x3, Cooperative Lungs: Clear to auscultation, Normal air movement Cardiovascular: Regular rate, No murmurs Abdomen: Bowel Sounds Present, Soft, Non Tender Microbiology Past 72 Hours 09/22/19 05:50 Stool Enteric Bacteriology - Final 09/20/19 14:20 Urine, Clean Catch Urine Culture - Final Mixed Gram Positive Organisms 09/22/19 05:50 Stool Stool Lactoferrin - Final 09/22/19 05:50 Stool Stool Occult Blood (LORI) - Final Laboratory Results 09/22/19 05:12: WBC 5.6, RBC 3.20 L, Hgb 9.2 L, Hct 29.1 L, MCV 90.9, MCH 28.8, MCHC 31.6 L, RDW Std Deviation 44.3 H, RDW Coeff of [place] 13.3, Plt Count 179, MPV 12.5 H 09/22/19 05:12: Sodium 144, Potassium 4.2, Chloride 118 H, Carbon Dioxide 18.0 L , Anion Gap 8, BUN 39 H, Creatinine 2.87 H, Estim Creat Clear Calc 17.74, Est GFR (MDRD) Af Amer 21 L, Est GFR (MDRD) Non-Af 17 L, BUN/Creatinine Ratio 13.6, Glucose 97, Calcium 8.6 09/22/19 05:12: Total Bilirubin 0.40, Direct Bilirubin 0.15, AST 43 H, ALT 60 H, Alkaline Phosphatase 160 H, Total Protein 5.3 L, Albumin 2.8 L, Globulin 2.5 Current Medications Acetaminophen (Tylenol) 650 mg PO Q6H PRN PRN PRN Reason: Pain Score 1-3/Temp > 100.7 F Amlodipine Besylate (Norvasc) 5 mg PO DAILY [facility] Last Admin: 09/22/19 15:54 Dose: 5 mg Documented by: Dextrose (D50w Syringe) 0 gm IV X1 PRN; Protocol PRN Reason: Hypoglycemia Enoxaparin Sodium (Lovenox) 30 mg SC DAILY [facility] Last Admin: 09/22/19 10:31 Dose: Not Given Documented by: Glucagon () 1 mg IM .X1 PRN PRN Reason: Hypoglycemia Ciprofloxacin (Cipro) 400 mg in 200 mls @ 200 mls/hr IV Q24H [facility] Last Infusion: 09/21/19 22:04 Dose: Infused Documented by: Metronidazole (Flagyl) 500 mg in 100 mls @ 100 mls/hr IV Q8 [facility] Last Infusion: 09/22/19 16:55 Dose: Infused Documented by: Sodium Chloride () 250 mls @ 15 mls/hr IV .[id number] PRN PRN Reason: Saline Flush Last Admin: 09/22/19 14:51 Dose: 15 mls/hr Documented by: Sodium Chloride () 1,000 mls @ 50 mls/hr IV .Q20H [facility] Last Admin: 09/22/19 15:57 Dose: 50 mls/hr Documented by: Nutritional Formula (Lactose Free) (Ensure Clear) 120 ml PO TIDCM [facility] Last Admin: 09/22/19 19:04 Dose: Not Given Documented by: Ondansetron HCl (Zofran) 4 mg IV Q8H PRN PRN PRN Reason: NAUSEA/VOMITING Sodium Bicarbonate (Sodium Bicarbonate) 650 mg PO BID [facility] Last Admin: 09/22/19 15:55 Dose: 650 mg Documented by: Sodium Chloride () 10 - 40 ml IV UD PRN PRN Reason: SALINE FLUSH Last Admin: 09/22/19 12:20 Dose: 10 ml Documented by: Medical Necessity - Tobacco Use Smoking Status: Never smoker Assessment/Plan All Active Problems Renal calculi (Acute) malaise, fatigue, right sided abdominal pain, 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 My initial plan was to perform upper endoscopy given the suspected history of a duodenal switch procedure to see if there were any stenoses or abnormalities from the upper endoscopy. After reviewing the contrast CT scan and reviewing outside records which demonstrated a limited colonoscopy, I performed upper endoscopy with push enteroscopy to the small bowel using a pediatric colonoscope. The patient was found to have normal-appearing small bowel 100 cm beyond the stomach. She was also found to have erosive gastritis. colonoscopy was performed. The terminal ileum was entered. This appeared unremarkable. Multiple biopsies of the jejunum ileum stomach and colon were obtained. Reviewed the CT scan with Dr. Crook, he does agree there is likely an area of thickening and possible stenosis in the small bowel. He also sees some shotty adenopathy. He wonders if this could be Crohn's disease.. clinically my differential includes stenosis at the distal anastomotic site, chronic bowel changes secondary to her surgical procedure, and possibly Crohn's disease. we will plan for a small bowel follow-through to be obtained tomorrow. If the area of the bowel appears abnormal would consider obtaining stool cultures. For now would plan to hold consideration for cholecystectomy. . We'll try to obtain CT scan report from last year from [facility]
[2019-09-22] MEDS: Pantoprazole Sodium 40 MG Tablet PO (21:25)
[2019-09-22] MEDS: Ciprofloxacin 400 MG/200 ML BAG 200 MG IV (22:37)
[2019-09-23 02:37] VITALS: BP 136/71; PULSE 64; RESP 16; TEMP 36.8; O2SAT 97
[2019-09-23 03:02] VITALS: PULSE 54
[2019-09-23] MEDS: metroNIDAZOLE 500 MG/100 ML BAG 100 MG IV (05:50)
--- NOTE | 2019-09-23 05:57 | PN.SURG_ITS ---
Subjective: no pain today - Physical Exam Vitals/I&O's: Vital Signs Temp Pulse Resp BP Pulse Ox 98.2 F 54 L 16 136/71 H 97 09/23/19 02:37 09/23/19 03:02 09/23/19 02:37 09/23/19 02:37 09/23/19 02:37 Oxygen Delivery Method Room Air Weight: 78.154 kg Body Mass Index (BMI) 26.9 Intake and Output for Last 24 Hours 09/21/19 09/22/19 09/23/19 23:59 23:59 23:59 Intake Total 5225.83 / 6225.83 4393.08 / 5043.08 650 / 650 Output Total 1999 / 0 4950 / 4950 Balance 3225.83 / 3975.83 -556.92 / 93.08 650 / 650 General: Alert, Oriented x3, Cooperative Lungs: Clear to auscultation, Normal air movement Cardiovascular: Regular rate, No murmurs Abdomen: Bowel Sounds Present, Soft, Non Tender Microbiology Past 72 Hours 09/22/19 05:50 Stool Enteric Bacteriology - Final 09/20/19 14:20 Urine, Clean Catch Urine Culture - Final Mixed Gram Positive Organisms 09/22/19 05:50 Stool Stool Lactoferrin - Final 09/22/19 05:50 Stool Stool Occult Blood (LORI) - Final Laboratory Results 09/22/19 05:12: Sodium 144, Potassium 4.2, Chloride 118 H, Carbon Dioxide 18.0 L , Anion Gap 8, BUN 39 H, Creatinine 2.87 H, Estim Creat Clear Calc 17.74, Est GFR (MDRD) Af Amer 21 L, Est GFR (MDRD) Non-Af 17 L, BUN/Creatinine Ratio 13.6, Glucose 97, Calcium 8.6 09/22/19 05:12: Total Bilirubin 0.40, Direct Bilirubin 0.15, AST 43 H, ALT 60 H, Alkaline Phosphatase 160 H, Total Protein 5.3 L, Albumin 2.8 L, Globulin 2.5 Current Medications Acetaminophen (Tylenol) 650 mg PO Q6H PRN PRN PRN Reason: Pain Score 1-3/Temp > 100.7 F Amlodipine Besylate (Norvasc) 5 mg PO DAILY [facility] Last Admin: 09/22/19 15:54 Dose: 5 mg Documented by: Dextrose (D50w Syringe) 0 gm IV X1 PRN; Protocol PRN Reason: Hypoglycemia Enoxaparin Sodium (Lovenox) 30 mg SC DAILY [facility] Last Admin: 09/22/19 10:31 Dose: Not Given Documented by: Glucagon () 1 mg IM .X1 PRN PRN Reason: Hypoglycemia Ciprofloxacin (Cipro) 400 mg in 200 mls @ 200 mls/hr IV Q24H [facility] Last Infusion: 09/22/19 23:37 Dose: Infused Documented by: Metronidazole (Flagyl) 500 mg in 100 mls @ 100 mls/hr IV Q8 [facility] Last Admin: 09/23/19 05:50 Dose: 100 mls/hr Documented by: Sodium Chloride () 250 mls @ 15 mls/hr IV .[id number] PRN PRN Reason: Saline Flush Last Infusion: 09/22/19 19:00 Dose: Infused Documented by: Sodium Chloride () 1,000 mls @ 50 mls/hr IV .Q20H [facility] Last Infusion: 09/22/19 23:37 Dose: 50 mls/hr Documented by: Nutritional Formula (Lactose Free) (Ensure Clear) 120 ml PO TIDCM [facility] Last Admin: 09/22/19 19:04 Dose: Not Given Documented by: Ondansetron HCl (Zofran) 4 mg IV Q8H PRN PRN PRN Reason: NAUSEA/VOMITING Pantoprazole Sodium (Protonix) 40 mg PO BID [facility] Last Admin: 09/22/19 21:25 Dose: 40 mg Documented by: Sodium Bicarbonate (Sodium Bicarbonate) 650 mg PO BID [facility] Last Admin: 09/22/19 21:25 Dose: 650 mg Documented by: Sodium Chloride () 10 - 40 ml IV UD PRN PRN Reason: SALINE FLUSH Last Admin: 09/22/19 12:20 Dose: 10 ml Documented by: Medical Necessity - Tobacco Use Smoking Status: Never smoker Assessment/Plan All Active Problems Renal calculi (Acute) malaise, fatigue, right sided abdominal pain, 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 My initial plan was to perform upper endoscopy given the suspected history of a duodenal switch procedure to see if there were any stenoses or abnormalities from the upper endoscopy. After reviewing the contrast CT scan and reviewing outside records which demonstrated a limited colonoscopy, I performed upper endoscopy with push enteroscopy to the small bowel using a pediatric colonoscope. The patient was found to have normal-appearing small bowel 100 cm beyond the stomach. She was also found to have erosive gastritis. colonoscopy was performed. The terminal ileum was entered. This appeared unremarkable. Multiple biopsies of the jejunum ileum stomach and colon were obtained. Reviewed the CT scan with Dr. Crook, he does agree there is likely an area of thickening and possible stenosis in the small bowel. He also sees some shotty adenopathy. He wonders if this could be Crohn's disease.. clinically my differential includes stenosis at the distal anastomotic site, chronic bowel changes secondary to her surgical procedure, and possibly Crohn's disease. small bowel follow-through demonstrates distended small bowel with a questionable stenotic area. There is very rapid progression of contrast from the stomach to the small bowel likely duodenum and then a few loops of dilated small bowel before entering the cecum very quickly. this most likely would be from ileojejunal bypass given the findings on small bowel follow-through and the findings on endoscopy. For now would plan to hold consideration for cholecystectomy. . We'll try to obtain CT scan report from last year from [facility] I will plan to have the patient follow-up in my office next week for biopsy results and to discuss further treatment options.
[2019-09-23 08:37] VITALS: BP 136/62; PULSE 57; RESP 16; TEMP 36.5; O2SAT 100
--- NOTE | 2019-09-23 08:47 | NURSING ---
Addendum entered by Migdalia Hauser 09/23/19 08:47: Pt had been NPO since 0000 per radiology policy-- as reported by electronics mechanic RN Jenn. Original Note: Pt has been off unit since ~0730 for small bowel series.
[2019-09-23] MEDS: Pantoprazole Sodium 40 MG Tablet PO (09:24)
[2019-09-23] MEDS: Sodium Bicarbonate 650 MG Tablet PO (09:24)
[2019-09-23] MEDS: amLODIPine 5 MG Tablet PO (09:24)
--- NOTE | 2019-09-23 10:25 | RAD_ITS ---
STUDY: SMALL BOWEL FOLLOW-THROUGH EXAMINATION. REASON FOR EXAM: Female, 69 years old. Abdominal pain. History of prior gastric bypass surgery with duodenal switch. FLUOROSCOPY TIME (if supplied): ( 40 seconds ) minutes/seconds TECHNIQUE: A professional sports scout film was obtained. Following this, the patient ingested barium. A small bowel follow-through examination was obtained. COMPARISON: None. FINDINGS: On the professional sports scout film, multiple bilateral intrarenal calculi are seen. There is also evidence of multiple phleboliths within the pelvis. There is evidence of anastomosis of the proximal small bowel loops to the right hemicolon in the region of the descending colon. The visualized small bowel is dilated and the irregular thickened small bowel folds with irregular alignment. There is also evidence of a remnant of the terminal ileum at the level of the ileocolic junction. On the delayed imaging, contrast is seen within the left hemicolon which shows evidence of sigmoid diverticula. RAD/Small Bowel Series Only IMPRESSION: Status post surgical anastomosis of the proximal jejunal loops with the descending colon. The small bowel loop as a abnormal appearance with edematous changes. Electronically Signed: Jonathon Crook, at 11:24 EST , Service support ,
--- NOTE | 2019-09-23 11:46 | DCINST_ITS ---
You will use the following diet at home:: No restrictions Discharge Activity: Return to Normal Activity Call your doctor if you observe: Inability to have a bowel movement, Uncontrolled pain Instructions: Gallstones, FLANK PAIN, Uncertain Cause Allergies/Adverse Reactions: Allergies adhesive tape Allergy (Verified 09/20/19 13:34) Rash amoxicillin [From Augmentin] Allergy (Verified 09/20/19 13:34) Swelling cephalexin [From Keflex] Allergy (Verified 09/20/19 13:34) Swelling clavulanic acid [From Augmentin] Allergy (Verified 09/20/19 13:34) Swelling latex Allergy (Verified 09/20/19 13:34) Rash Penicillins [PCN] Allergy (Verified 09/20/19 13:34) Swelling sulfamethoxazole [From Bactrim] Allergy (Verified 09/20/19 13:34) rash,swellling, itching trimethoprim [From Bactrim] Allergy (Verified 09/20/19 13:34) rash,swellling, itching Medications to take at Discharge Amlodipine [Norvasc] 5 mg PO DAILY 04/19/18 Hydrocodone Bitart/Apap 5-325 [[place] 5MG-325MG] 1 tab PO Q4H PRN PRN 2 Days #10 tab 09/20/19 Ondansetron [Zofran Odt] 4 mg PO Q8H PRN PRN #10 tab 09/20/19 Sodium Bicarbonate 650 mg PO BID 09/20/19 Ciprofloxacin [Cipro] 500 mg PO BID #6 tab 09/23/19 Pantoprazole Sodium [Protonix] 40 mg PO DAILY #30 tab 09/23/19 metroNIDAZOLE [Flagyl] 500 mg PO Q8H #9 tab 09/23/19 The following prescriptions were given: Ciprofloxacin [Cipro] 500 mg PO BID #6 tab Transmission Status: Sent to [facility] [place] [facility] metroNIDAZOLE [Flagyl] 500 mg PO Q8H #9 tab Transmission Status: Sent to [facility] [place] [facility] Hydrocodone Bitart/Apap 5-325 [[place] 5MG-325MG] 1 tab PO Q4H PRN PRN 2 Days #10 tab PRN Reason: Pain Prescription Printed Pantoprazole Sodium [Protonix] 40 mg PO DAILY #30 tab Transmission Status: Sent to [facility] [place] [facility] Ondansetron [Zofran Odt] 4 mg PO Q8H PRN PRN #10 tab PRN Reason: Nausea Prescription Printed Primary Care Physician: Cristina Kwok MD [STAFF PHYSICIAN] - Keep Quentin appointment Test Results: Test results from this visit will be discussed in further detail at your follow- up appointment, if applicable. Please Follow Up With: Arden Hernandez MD When: 1 Week Please Follow Up With: Jewell Bowens DO When: 1 Week Please Follow Up With: Cristina Kwok MD When: As scheduled Proposed Discharge Date: 09/23/19
[2019-09-23 11:48] VITALS: BP 145/57; PULSE 66; RESP 16; TEMP 37.1; O2SAT 98
--- NOTE | 2019-09-23 14:03 | DS.PCM_ITS ---
<Shelby Ramos - Last Filed: 09/23/19 14:13> Discharge Date and Diagnosis Date of Admission: 09/20/19 Date of Discharge: 09/23/19 - Primary Discharge Diagnosis 1. Acute on chronic abdominal pain-possible Crohn's disease versus chronic bowel changes secondary to prior surgical procedure 2. Stage IV chronic kidney disease 3. Hypertension 4. History of recurrent kidney stones 5. Chronic normocytic anemia - Secondary Discharge Diagnosis Chronic Problems Urinary tract infection (Chronic) Hospital Course and Treatment Imaging Results: Diagnostic Data Abdomen/Pelvis CT 09/20/19 13:58 IMPRESSION: No acute abdominal or pelvic pathology demonstrated on this noncontrast CT. Stable nonacute findings, as above. Electronically Signed: Darryl Neff, at 15:01 EST Tel , Service support , Chest X-Ray 09/20/19 13:59 IMPRESSION: No acute cardiopulmonary disease. Electronically Signed: Francisco Long DO at 16:19 EST Tel [phone], Service support , Gallbladder Ultrasound 09/20/19 15:24 IMPRESSION: 1. Gallstones with mild wall thickening and positive Lau''s sign. The findings suggest acute cholecystitis. 2. Fatty infiltration of the liver. 3. Right renal calculi as noted on the recent CT. N.B. : The above information has been verbally conveyed by Francisco Long DO to Brayan Caballero MD, on 09/20/2019 16:47:31 (ET). Electronically Signed: Francisco Long DO at 16:49 EST Tel [phone], Service support , ADDENDUM: 09/20/19 1656 IMPRESSION: 1. Gallstones with mild wall thickening and positive Lau''s sign. The findings suggest acute cholecystitis. 2. Fatty infiltration of the liver. 3. Right renal calculi as noted on the recent CT. N.B. : The above information has been verbally conveyed by Francisco Long DO to Brayan Caballero MD, on 09/20/2019 16:47:31 (ET). Electronically Signed: Francisco Long DO at 16:49 EST Tel [phone], Service support , Abdomen CT 09/20/19 18:23 IMPRESSION: 1. Wall thickening of the terminal ileum which may represent regional enteritis. 2. Elevated left hemidiaphragm. 3. Cholelithiasis. 4. Nonobstructing bilateral renal calculi. 5. Large colonic stool burden consistent with constipation. 6. Degenerative changes of the visualized thoracolumbar spine. 7. There is no evidence of free intra-abdominal or intrapelvic air or fluid. Electronically Signed: Сергей Moreland MD at 23:03 EST , Service support , ADDENDUM: 09/21/19 1617 Small Bowel X-Ray 09/23/19 10:25 IMPRESSION: Status post surgical anastomosis of the proximal jejunal loops with the descending colon. The small bowel loop as a abnormal appearance with edematous changes. Electronically Signed: Jonathon Crook, at 11:24 EST , Service support , Dr. Hernandez- General surgery Operations: None Procedures: Colonoscopy, EGD Summary of Care Provided: The patient is a 69 year old F admitted 09/20/2018 due to worsening abdominal pain. 1. Acute on chronic abdominal pain-CT of abdomen and pelvis on admission shows no acute process. 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 General surgery, Dr. Hernandez consulted during admission. Upper endoscopy demonstrated erosive gastritis. Colonoscopy appeared unremarkable. Multiple biopsies taken. Questionable Crohn's disease? Other possible etiology includes stenosis at the distal anastomotic site, chronic bowel changes due to prior surgical procedure and again possible Crohn's. Patient denies further abdominal pain day of discharge. Will treat empirically with a course of Cipro and Flagyl. Follow-up with Dr. Hernandez next week to discuss biopsy/results. Discharged on PPI. Follow-up with PCP in 1 week. 2. Stage IV chronic kidney disease- follows with nephrology. Stable. Continue sodium bicarb. 3. Hypertension-stable, continue amlodipine regimen. 4. History of recurrent kidney stones- lithotripsy in the past by Dr. Kwok. 5. Chronic normocytic anemia-stable. General: Alert, Oriented x3, Cooperative HEENT: Atraumatic, PERRLA, EOMI, Normocephalic Neck: Supple, No JVD, Negative Carotid Bruits Lungs: Clear to auscultation, Normal air movement Cardiovascular: Regular rate, Regular Rhythm, Normal S1, Normal S2, No murmurs Abdomen: Bowel Sounds Present, Soft, Non-Distended, Tender - Mild right-sided tenderness, improved Extremities: No clubbing, No cyanosis, No edema, Capillary Refill Less than 3 Seconds Skin: No rashes, No breakdown Musculoskeletal: No Tenderness to Palpation of Joints or Extremities Neurological: Cranial nerves II-XII grossly intact, Neuro grossly intact Psych/Mental Status: Normal Affect, Appropriate Patient seen and examined prior to discharge. Physical assessment as noted above. Patient is stable for discharge with follow up recommendations as noted above. This patient was seen by JUAN Landrum under the supervision of Dr. Borrero. - Physical Exam Vitals/I&O's: Vital Signs Temp Pulse Resp BP Pulse Ox 97.7 F L 57 L 16 136/62 H 100 09/23/19 08:37 09/23/19 08:37 09/23/19 08:37 09/23/19 08:37 09/23/19 08:37 Oxygen Delivery Method Room Air Weight: 172 lb 4.8 oz Body Mass Index (BMI) 26.9 Intake and Output for Last 24 Hours 09/21/19 09/22/19 09/23/19 23:59 23:59 23:59 Intake Total 5225.83 / 6225.83 4393.08 / 5043.08 1543.33 / 1543.33 Output Total 1999 / 2249 4950 / 4950 400 / 400 Balance 3225.83 / 3975.83 -556.92 / 93.08 1143.33 / 1143.33 Microbiology Past 72 Hours 09/20/19 19:30 Blood Culture (Wb) - Anticubital Right Blood Culture - Preliminary No growth in 48 hours. 09/20/19 14:10 Blood Culture (Wb) - Anticubital Left Blood Culture - Preliminary No growth in 48 hours. 09/22/19 05:50 Stool Enteric Bacteriology - Final 09/20/19 14:20 Urine, Clean Catch Urine Culture - Final Mixed Gram Positive Organisms 09/22/19 05:50 Stool Stool Lactoferrin - Final 09/22/19 05:50 Stool Stool Occult Blood (LORI) - Final Current Medications Acetaminophen (Tylenol) 650 mg PO Q6H PRN PRN PRN Reason: Pain Score 1-3/Temp > 100.7 F Amlodipine Besylate (Norvasc) 5 mg PO DAILY [facility] Last Admin: 09/23/19 09:24 Dose: 5 mg Documented by: Dextrose (D50w Syringe) 0 gm IV X1 PRN; Protocol PRN Reason: Hypoglycemia Enoxaparin Sodium (Lovenox) 30 mg SC DAILY [facility] Last Admin: 09/23/19 09:23 Dose: Not Given Documented by: Glucagon () 1 mg IM .X1 PRN PRN Reason: Hypoglycemia Ciprofloxacin (Cipro) 400 mg in 200 mls @ 200 mls/hr IV Q24H [facility] Last Infusion: 09/22/19 23:37 Dose: Infused Documented by: Metronidazole (Flagyl) 500 mg in 100 mls @ 100 mls/hr IV Q8 [facility] Last Infusion: 09/23/19 06:50 Dose: Infused Documented by: Sodium Chloride () 250 mls @ 15 mls/hr IV .[id number] PRN PRN Reason: Saline Flush Last Infusion: 09/22/19 19:00 Dose: Infused Documented by: Nutritional Formula (Lactose Free) (Ensure Clear) 120 ml PO TIDCM [facility] Last Admin: 09/23/19 11:27 Dose: Not Given Documented by: Ondansetron HCl (Zofran) 4 mg IV Q8H PRN PRN PRN Reason: NAUSEA/VOMITING Pantoprazole Sodium (Protonix) 40 mg PO BID [facility] Last Admin: 09/23/19 09:24 Dose: 40 mg Documented by: Sodium Bicarbonate (Sodium Bicarbonate) 650 mg PO BID [facility] Last Admin: 09/23/19 09:24 Dose: 650 mg Documented by: Sodium Chloride () 10 - 40 ml IV UD PRN PRN Reason: SALINE FLUSH Last Admin: 09/22/19 12:20 Dose: 10 ml Documented by: Discharge Diet: Light diet - advance as tolerated Discharge Activity: Return to Normal Activity Call your doctor if you observe: Inability to have a bowel movement, Uncontrolled pain Home Medications: Medications to take at Discharge Amlodipine [Norvasc] 5 mg PO DAILY 04/19/18 Ondansetron [Zofran Odt] 4 mg PO Q8H PRN PRN #10 tab 09/20/19 Sodium Bicarbonate 650 mg PO BID 09/20/19 Ciprofloxacin [Cipro] 500 mg PO BID #6 tab 09/23/19 Pantoprazole Sodium [Protonix] 40 mg PO DAILY #30 tab 09/23/19 metroNIDAZOLE [Flagyl] 500 mg PO Q8H #9 tab 09/23/19 Following Prescrptions Were Given to Patient: Ciprofloxacin [Cipro] 500 mg PO BID #6 tab Transmission Status: Received by [facility] metroNIDAZOLE [Flagyl] 500 mg PO Q8H #9 tab Transmission Status: Received by [facility] Pantoprazole Sodium [Protonix] 40 mg PO DAILY #30 tab Transmission Status: Received by [facility] Ondansetron [Zofran Odt] 4 mg PO Q8H PRN PRN #10 tab PRN Reason: Nausea Prescription Printed Primary Care Physician: Cristina Kwok MD [STAFF PHYSICIAN] - Keep Quentin appointment Please Follow Up With: Arden Hernandez MD When: 1 Week Please Follow Up With: Jewell Bowens DO When: 1 Week Please Follow Up With: Cristina Kwok MD When: As scheduled Patient Instructions: Gallstones, FLANK PAIN, Uncertain Cause Disposition: Home Minutes spent on discharge:: 35 Patient Condition:: Stable Medical Necessity - Tobacco Use Smoking Status: Never smoker Meaningful Use Info Meaningful Use Diagnoses (Choose all that apply): None applicable <Bernardino Borrero - Last Filed: 09/23/19 14:34> Discharge Date and Diagnosis - Secondary Discharge Diagnosis Chronic Problems Urinary tract infection (Chronic) Hospital Course and Treatment Imaging Results: 09/23/19 10:25 Small Bowel Series Only [RAD] Routine Operations: None Procedures: Colonoscopy, EGD Summary of Care Provided: Patient seen and examined independently. Data reviewed. I agree with the above note by the nurse practitioner. The patient is a 69 year old F presents with abdominal pain. Patient underwent an extensive work up. Overall improved. Patient will be discharge with cipro and flagyl for possible enteritis.[] - Physical Exam Vitals/I&O's: Vital Signs Temp Pulse Resp BP Pulse Ox 36.5 C L 57 L 16 136/62 H 100 09/23/19 08:37 09/23/19 08:37 09/23/19 08:37 09/23/19 08:37 09/23/19 08:37 Oxygen Delivery Method Room Air Weight: 78.154 kg Body Mass Index (BMI) 26.9 Intake and Output for Last 24 Hours 09/21/19 09/22/19 09/23/19 23:59 23:59 23:59 Intake Total 5225.83 / 6225.83 4393.08 / 5043.08 1543.33 / 1543.33 Output Total 2000 / 2250 4950 / 4950 400 / 400 Balance 3225.83 / 3975.83 -556.92 / 93.08 1143.33 / 1143.33 General: Alert, Cooperative, No apparent distress HEENT: Atraumatic, Normocephalic Oral: Moist Mucosa, No Gingival or Mucosal Lesions/ Ulcerations Lungs: Clear to auscultation, Normal air movement, No rhonchi, No wheeze, No rales Cardiovascular: Regular rate, Regular Rhythm, Normal S1, Normal S2, No murmurs Abdomen: Bowel Sounds Present, Soft, Non Tender, Non-Distended, No Hepato- splenomegaly Psych/Mental Status: Normal Affect, Appropriate Microbiology Past 72 Hours 09/20/19 19:30 Blood Culture (Wb) - Anticubital Right Blood Culture - Preliminary No growth in 48 hours. 09/20/19 14:10 Blood Culture (Wb) - Anticubital Left Blood Culture - Preliminary No growth in 48 hours. 09/22/19 05:50 Stool Enteric Bacteriology - Final 09/20/19 14:20 Urine, Clean Catch Urine Culture - Final Mixed Gram Positive Organisms 09/22/19 05:50 Stool Stool Lactoferrin - Final 09/22/19 05:50 Stool Stool Occult Blood (LORI) - Final Current Medications Acetaminophen (Tylenol) 650 mg PO Q6H PRN PRN PRN Reason: Pain Score 1-3/Temp > 100.7 F Amlodipine Besylate (Norvasc) 5 mg PO DAILY [facility] Last Admin: 09/23/19 09:24 Dose: 5 mg Documented by: Dextrose (D50w Syringe) 0 gm IV X1 PRN; Protocol PRN Reason: Hypoglycemia Enoxaparin Sodium (Lovenox) 30 mg SC DAILY [facility] Last Admin: 09/23/19 09:23 Dose: Not Given Documented by: Glucagon () 1 mg IM .X1 PRN PRN Reason: Hypoglycemia Ciprofloxacin (Cipro) 400 mg in 200 mls @ 200 mls/hr IV Q24H [facility] Last Infusion: 09/22/19 23:37 Dose: Infused Documented by: Metronidazole (Flagyl) 500 mg in 100 mls @ 100 mls/hr IV Q8 [facility] Last Infusion: 09/23/19 06:50 Dose: Infused Documented by: Sodium Chloride () 250 mls @ 15 mls/hr IV .[id number] PRN PRN Reason: Saline Flush Last Infusion: 09/22/19 19:00 Dose: Infused Documented by: Nutritional Formula (Lactose Free) (Ensure Clear) 120 ml PO TIDCM [facility] Last Admin: 09/23/19 11:27 Dose: Not Given Documented by: Ondansetron HCl (Zofran) 4 mg IV Q8H PRN PRN PRN Reason: NAUSEA/VOMITING Pantoprazole Sodium (Protonix) 40 mg PO BID [facility] Last Admin: 09/23/19 09:24 Dose: 40 mg Documented by: Sodium Bicarbonate (Sodium Bicarbonate) 650 mg PO BID [facility] Last Admin: 09/23/19 09:24 Dose: 650 mg Documented by: Sodium Chloride () 10 - 40 ml IV UD PRN PRN Reason: SALINE FLUSH Last Admin: 09/22/19 12:20 Dose: 10 ml Documented by: Discharge Diet: Light diet - advance as tolerated Discharge Activity: Return to Normal Activity Patient Condition:: Stable Medical Necessity - Tobacco Use Smoking Status: Never smoker Meaningful Use Info Meaningful Use Diagnoses (Choose all that apply): None applicable Code Visit Inpatient E&M: 13964 Disch Hosp
--- NOTE | 2019-09-23 15:20 | NURSING ---
pt left home gavilax in room- this rn left message at pt's home.
== END 2019-09-23 15:05 | disposition home or self-care (01) | DRG 385 ==
LOC: ED 14:13 → MS3 18:11
PROVIDERS: Nurse Practitioner Family; Surgery; Admitting Provider Student in an Organized Health Care Education/Training Program; Emergency Provider Emergency Medicine; Family Provider Family Medicine; PCP Family Medicine
PROC: 0DJD8ZZ Inspection of Lower Intestinal Tract, Via Natural or Artificial Opening Endoscopic (ICD-10-PCS; CPT 45378; principal; 2019-09-22 13:40)
DX: K50.90 Crohn's disease, unspecified, without complications (principal); K29.61 Other gastritis with bleeding; N18.4 Chronic kidney disease, stage 4 (severe); N20.0 Calculus of kidney; Z98.84 Bariatric surgery status; R10.9 Unspecified abdominal pain; G89.29 Other chronic pain; I12.9 Hypertensive chronic kidney disease with stage 1 through stage 4 chronic kidney disease, or unspecified chronic kidney disease; K63.5 Polyp of colon; K80.20 Calculus of gallbladder without cholecystitis without obstruction; K62.4 Stenosis of anus and rectum; D17.5 Benign lipomatous neoplasm of intra-abdominal organs; D64.9 Anemia, unspecified; Z87.442 Personal history of urinary calculi
CPT/HCPCS: 36415; 71046; 74176; 74250; 76705; 80048; 80053; 80076; 81001; 82274; 83630; 85025; 85027; 87040; 87086; 87088; 87506; 88305; 88342; 93005; 97161; 97165; 99285; J7030; J7050; A4216; J0744; J2405

== ENCOUNTER 2019-11-09 20:14 | Emergency (ER) | payer MEDICARE, OTHER, SELFPAY ==
[2019-09-20 18:46] VITALS: BMI 26.9
[2019-11-09 20:15] VITALS: BP 184/94; PULSE 72; RESP 17; TEMP 36.7; O2SAT 97; BMI 28.8
--- NOTE | 2019-11-09 21:04 | CT_ITS ---
STUDY: CT ABDOMEN AND PELVIS WITHOUT CONTRAST REASON FOR EXAM: Female, 69 years old. Right flank pain RADIATION DOSAGE (If Supplied By Facility): CTDIvol = ( 12.00 ) mGy, DLP = ( 626.82 ) mGycm TECHNIQUE: Transaxial images were obtained from the dome of the diaphragm to the symphysis pubis without oral contrast, and without intravenous contrast. Sagittal and coronal images were reconstructed. Individualized dose optimization techniques were used for this CT. COMPARISON: 09/20/2019. FINDINGS: The visualized lung bases are unremarkable. The visualized portions of the heart demonstrate coronary artery calcifications. Normal liver. There is a solitary gallstone. Normal spleen. Focus of increased attenuation/calcification within the pancreatic body series 2 image 57 is stable compared to prior. This may represent sequelae of prior pancreatitis. Normal bilateral adrenal glands. Bilateral renal atrophy and multiple bilateral nonobstructing renal stones. Reidentified somewhat irregular cystic lesion at the lower pole of the left kidney is stable in appearance. Normal visualized stomach. Normal small intestine. Normal colon. There are surgical clips in the region of the appendix consistent with a prior appendectomy. There is mild atherosclerotic calcification of the abdominal aorta, without a demonstrated aneurysm. Normal inferior vena cava. Normal retroperitoneum. Normal urinary bladder. Normal visualized uterus. There is a small umbilical hernia containing fat. There are diffuse degenerative changes of the visualized lumbar spine. CT/Abdomen/Pelvis without Cont IMPRESSION: No acute intra-abdominal process. Cholelithiasis. Similar-appearing multiple bilateral nonobstructing renal stones. Similar appearing incompletely characterized cystic lesion of the left lower pole kidney may be better assessed with a targeted renal ultrasound. Similar-appearing heterogeneous high attenuation within the body of the pancreas is stable compared to prior. Electronically Signed: Alexx Alcazar, at 22:31 EST Tel , Service support ,
[2019-11-09] MEDS: Ketorolac 15 MG/ML Vial IV (21:13)
[2019-11-09] MEDS: Ondansetron 4 MG/2 ML Vial IV (21:13)
[2019-11-09] MEDS: 0.9% Normal Saline 1,000 ML 150 ML IV (21:21)
[2019-11-09 21:24] LABS: Bacteria 0 SEEN /hpf (None Seen); Mucous, Urine 0 SEEN /hpf (<or=2+)
[2019-11-09 21:25] LABS: Color, Urine Yellow (Yellow); Glucose, Dipstick Normal (Normal); Ketone-Dipstick Negative (Negative); Leukocyte Esterase-Dipstick 25 /ul (Negative); Nitrite-Dipstick Negative (Negative); Occult Blood-Urine Negative /ul (Negative); Protein-Dipstick 15 mg/dl (Negative); Specific Gravity, Urine 1.015 (1.002-1.030); Urine Bilirubin Dipstick Negative (Negative); Urine Clarity Clear (Clear); Urine Urobilinogen Normal (Normal)
[2019-11-09 21:25] LABS: Absolute Lymphocyte Count 1.25 X10^3/uL (0.83-4.51); Basophil# 0.05 X10^3/uL; Basophil% 0.5 % (0-1); Eosinophil# 0.16 X10^3/uL; Eosinophils% 1.5 % (0-5); Hematocrit 35.4 % (37-47); Hemoglobin 11.2 g/dL (12.0-15.0); Lymphocyte # 1.25 X10^3/ul (4.0); Lymphocyte % 11.4 % (19-41); Mean Corp Hgb Conc 31.6 g/dL (32-36); Mean Corpuscular Hgb 29.5 pg (27.0-32.0); Mean Corpuscular Volume 93.2 fL (81-99); Mean Platelet Vol. 12.6 fl (6.2-12.0); Monocyte# 0.49 X10^3/uL; Monocyte% 4.5 % (0-10); NRBC Flagged by Analyzer 0 % (0-5); Neutrophil # 9.02 X10^3/uL (2.7-7.7); Neutrophil % 81.9 % (47-70); Platelet Count 239 K/mm3 (150-450); RBC Distribution Width CV 12.4 % (11.6-14.6); RBC Distribution Width SD 42.4 fl (35.1-43.9)
[2019-11-09 21:33] LABS: Red Blood Cells-Urine 0-5 SEEN /hpf (0-5); Squamous Epithelial Cells - UA 0-5 SEEN /hpf (5-10); White Blood Cells 5-10 SEEN /hpf (0-5)
[2019-11-09 21:35] LABS: Anion Gap 7 (5-15); BUN 50 mg/dL (7-18); Calcium,Total 10.2 mg/dL (8.5-10.1); Chloride 111 mmol/L (98-107); Creatinine, Serum 3.13 mg/dL (0.55-1.02); EST Glomerular Filtration Rate 16 mL/min (>60); Est Glom Filt Rate - Afr Amer 19 mL/min (>60); Estimated Creatinine Clearance 16.26 ml/min; Glucose 118 mg/dL (74-106); Potassium 5.2 mmol/L (3.5-5.1); Sodium Level 140 mmol/L (136-145)
--- NOTE | 2019-11-09 22:46 | ED.DCSUM_ITS ---
History of Present Illness Chief Complaint: Flank Pain Informant: Patient Onset: Days - 2 days Context: Gradual Onset Timing: Waxes and wanes Current Severity: Moderate Maximum Severity: Moderate Narrative: Patient presents with 2-day history of right flank pain. Today she is had some vomiting and chills. She does have a history of kidney stones and states this feels similar. - Past Medical History (1) Hypertension Status: Chronic (2) Renal calculi Status: Chronic Past Medical History - Allergies and Home Meds Allergies/Adverse Reactions: Allergies adhesive tape Allergy (Verified 11/09/19 20:15) Rash amoxicillin [From Augmentin] Allergy (Verified 11/09/19 20:15) Swelling cephalexin [From Keflex] Allergy (Verified 11/09/19 20:15) Swelling clavulanic acid [From Augmentin] Allergy (Verified 11/09/19 20:15) Swelling latex Allergy (Verified 11/09/19 20:15) Rash Penicillins [PCN] Allergy (Verified 11/09/19 20:15) Swelling sulfamethoxazole [From Bactrim] Allergy (Verified 11/09/19 20:15) rash,swellling, itching trimethoprim [From Bactrim] Allergy (Verified 11/09/19 20:15) rash,swellling, itching Primary Care Physician: Jewell Bowens DO [Primary Care Provider] - Prior records reviewed: Yes Surgical History: - - 30 years ago 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, multiple cystoscopies due to kidney stones Smoking Status: Former smoker - Family History Maternal Family History: Reports: No pertinent history Review of Systems General: Reports: Chills. Denies: Fever Eyes: Denies: Visual changes - bilaterally ENT: Denies: Bilateral ear pain Cardiovascular: Denies: Chest pain Respiratory: Denies: Dyspnea Gastrointestinal: Reports: Abdominal pain, Nausea, Vomiting Genitourinary: Denies: Dysuria Musculoskeletal: Reports: Back pain. Denies: Neck pain Skin: Denies: Rash Neurological: Denies: Headache Allergy: Denies: Uticaria Physical Exam Vital Signs/Narrative: Vital Signs Temp Pulse Resp BP Pulse Ox 11/09/19 20:15 98.0 F 72 17 184/94 H 97 Inital Vital Signs reviewed: Yes General: Well nourished, Well developed Head: Normocephalic ENT: Moist mucous membranes Neck: Supple Cardiovascular: Regular rate, Regular rhythm Respiratory: No distress, CTA bilaterally Abdomen: Soft, Nontender Back: CVA tenderness - Right CVA tenderness Extremities: Nontender Skin: Normal color Neurological: Alert, Oriented x3 Diagnostic/Tx/Re-eval Impressions Abdomen/Pelvis CT 11/09/19 21:04 IMPRESSION: No acute intra-abdominal process. Cholelithiasis. Similar-appearing multiple bilateral nonobstructing renal stones. Similar appearing incompletely characterized cystic lesion of the left lower pole kidney may be better assessed with a targeted renal ultrasound. Similar-appearing heterogeneous high attenuation within the body of the pancreas is stable compared to prior. Electronically Signed: Alexx Alcazar, at 22:31 EST Tel , Service support , 11/09/19 21:04 Abdomen/Pelvis without Cont [CT] Stat Laboratory Results 11/09/19 11/09/19 11/09/19 20:35 20:35 21:10 WBC 11.0 RBC 3.80 L Hgb 11.2 L Hct 35.4 L MCV 93.2 MCH 29.5 MCHC 31.6 L RDW Std Deviation 42.4 RDW Coeff of [place] 12.4 Plt Count 239 MPV 12.6 H Immature Gran % (Auto) 0.200 Neut % (Auto) 81.9 H Lymph % (Auto) 11.4 L [place] % (Auto) 4.5 Eos % (Auto) 1.5 Baso % (Auto) 0.5 Absolute Neuts (auto) 9.0 H Absolute Lymphs (auto) 1.25 Nucleated RBC % 0 Sodium 140 Potassium 5.2 H Chloride 111 H Carbon Dioxide 22.0 Anion Gap 7 BUN 50 H Creatinine 3.13 H Estim Creat Clear Calc 16.26 Est GFR (MDRD) Af Amer 19 L Est GFR (MDRD) Non-Af 16 L BUN/Creatinine Ratio 16.0 Glucose 118 H Calcium 10.2 H Urine Color Yellow Urine Clarity Clear Urine pH 6.0 Ur Specific [place] 1.015 Urine Protein 15 H Urine Glucose (UA) Normal Urine Ketones Negative Urine Occult Blood Negative Urine Nitrite Negative Urine Bilirubin Negative Urine Urobilinogen Normal Ur Leukocyte Esterase 25 H Urine RBC 0-5 SEEN Urine WBC 5-10 SEEN Ur Squamous Epith Cells 0-5 SEEN Urine Bacteria 0 SEEN Urine Mucus 0 SEEN - Medical Decision Making Patient was given morphine, Zofran, and 15 mg of Toradol x1 dose. She is given IV fluids here. Patient on repeat evaluation does feel improved. Test results are discussed with her. I also discussed test results with Dr. Kwok, her urologist. Patient feels comfortable with discharge to home at this time and will follow up with her Sundar closely. We will write her prescription for [place] and Zofran. ED Disposition - Plan for ED Patient: Disposition: Home or Assisted Living Diagnosis: Right flank pain Instructions: FLANK PAIN, Uncertain Cause Prescriptions: Hydrocodone Bitart/Apap 5-325 [[place] 5MG-325MG] 1 tablet PO Q6H PRN PRN 3 Days #10 tablet PRN Reason: Pain Ondansetron [Zofran Odt] 4 mg PO Q8H PRN PRN #10 tablet PRN Reason: Nausea Referrals: Jewell Bowens DO [Primary Care Provider] - Cristina Kwok MD [STAFF PHYSICIAN] - 3-5 Days if not improving
[2019-11-09 23:03] VITALS: BP 157/77; PULSE 58; RESP 18; O2SAT 95
== END 2019-11-09 23:04 | disposition home or self-care (01) ==
PROVIDERS: Emergency Provider Emergency Medicine; PCP Family Medicine
DX: K80.20 Calculus of gallbladder without cholecystitis without obstruction (principal); N20.0 Calculus of kidney; I10 Essential (primary) hypertension; Z87.442 Personal history of urinary calculi; Z87.891 Personal history of nicotine dependence
CPT/HCPCS: 74176; 80048; 81001; 85025; 96361; 96374; 96375; 99283; J7030; A4216; J2405

== ENCOUNTER 2020-04-06 16:13 | Inpatient (IN) | payer MEDICARE, OTHER, SELFPAY ==
[2020-04-06 16:14] VITALS: BP 179/96; PULSE 72; RESP 17; TEMP 36.6; O2SAT 98; BMI 26.6
--- NOTE | 2020-04-06 16:30 | EKG12_ITS ---
Test Reason : Blood Pressure : / mmHG Vent. Rate : 064 BPM Atrial Rate : 064 BPM P-R Int : 152 ms QRS Dur : 082 ms QT Int : 426 ms P-R-T Axes : 039 018 066 degrees QTc Int : 439 ms Normal sinus rhythm Nonspecific T wave abnormality Abnormal ECG Confirmed by WENDI GUTIERREZ ([id number]), television news video editor ANTONIA CARRION ([id number]) on 04/13/2020 8:10:18 AM Referred By: FADI Confirmed By:WENDI GUTIERREZ
--- NOTE | 2020-04-06 16:37 | ED.VIS.GEN ---
History of Present Illness Chief Complaint: Weakness Informant: Patient Onset: Weeks Context: Gradual Onset Timing: Continuous Current Severity: Moderate Maximum Severity: Moderate Narrative: The patient is a 70-year-old female with medical history significant for hypertension, pernicious anemia, chronic kidney disease secondary to obstructing renal stone who presents to the emergency department shortness of breath, weight loss, difficulty eating. Patient states for the past 3 weeks, she is had diminished appetite. She states she had about a 15 pound weight loss. She states no matter what she eats or drinks, it has a metallic taste and will make her nauseated. She is not had vomiting. She states that she does deal with some chronic constipation since her prior gastric bypass surgery. She states also over the past 2 weeks, she cannot walk any distance without getting acutely dyspneic. She states if she tries to climb stairs, she will get significantly short of breath and will have to lay down. She denies fever but does admit to chills. She denies cough. She still makes urine without issue. Prior similar symptoms: No Recent Illness/Hospitalization: No Past Medical History - Allergies and Home Meds Allergies/Adverse Reactions: Allergies adhesive tape Allergy (Verified 04/06/20 16:14) Rash amoxicillin [From Augmentin] Allergy (Verified 04/06/20 16:14) Swelling cephalexin [From Keflex] Allergy (Verified 04/06/20 16:14) Swelling clavulanic acid [From Augmentin] Allergy (Verified 04/06/20 16:14) Swelling latex Allergy (Verified 04/06/20 16:14) Rash Penicillins [PCN] Allergy (Verified 04/06/20 16:14) Swelling sulfamethoxazole [From Bactrim] Allergy (Verified 04/06/20 16:14) rash,swellling, itching trimethoprim [From Bactrim] Allergy (Verified 04/06/20 16:14) rash,swellling, itching Prior records reviewed: Yes Past Medical History: - - Pernicious anemia, hypertension, prior gastric bypass Surgical History: - - 30 years ago 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, multiple cystoscopies due to kidney stones Smoking Status: Former smoker - Family History Maternal Family History: Reports: No pertinent history Review of Systems General: Reports: Chills, Weight loss. Denies: Fever, Sweats Eyes: Denies: Visual changes - bilaterally, Diplopia ENT: Denies: Rhinorrhea, Sore throat Cardiovascular: Reports: Chest pain. Denies: Palpitations Respiratory: Reports: Dyspnea. Denies: Cough, Dyspnea on exertion Gastrointestinal: Reports: Nausea. Denies: Abdominal pain, Vomiting, Diarrhea, Melena, Hematochezia Genitourinary: Denies: Dysuria, Hematuria, Frequency Musculoskeletal: Denies: Back pain, Extremity Pain Skin: Denies: Rash, Wounds Neurological: Denies: Headache, Weakness, Numbness Physical Exam Vital Signs/Narrative: Vital Signs Temp Pulse Resp BP Pulse Ox 04/06/20 16:14 97.8 F 72 17 179/96 H 98 Inital Vital Signs reviewed: Yes General: Well nourished, Well developed, No Acute Distress Head: Normocephalic, Atraumatic Eyes: Perrl, EOMI ENT: Moist mucous membranes, No rhinorrhea Neck: Supple, Nontender Cardiovascular: Regular rate, Regular rhythm, No murmurs Respiratory: No distress, CTA bilaterally, Chest nontender Abdomen: Soft, Nontender, Nondistended, Normal bowel sounds Back: Nontender, Normal Inspection Extremities: Nontender, No edema Skin: Normal color, No rash Neurological: Alert, Oriented x3, Cranial nerves II-XII grossly intact, Normal Strength, Normal Sensation Psychological: Normal affect, Normal Mood Diagnostic/Tx/Re-eval Clinical Impression(s) from Imaging Studies Chest X-Ray 04/06/20 16:50 IMPRESSION: No acute cardiopulmonary disease. Electronically Signed: Elmer Alanis MD at 17:14 EDT , Service support , Abnormal Lab Results 04/06/20 04/06/20 04/06/20 16:50 16:50 16:50 WBC 8.1 RBC 3.16 L Hgb 8.9 L Hct 27.7 L MCV 87.7 MCH 28.2 MCHC 32.1 RDW Std Deviation 45.4 H RDW Coeff of [place] 14.1 Plt Count 239 MPV 12.1 H Immature Gran % (Auto) 0.600 Neut % (Auto) 77.4 H Lymph % (Auto) 12.1 L Atkinson % (Auto) 6.9 Eos % (Auto) 2.3 Baso % (Auto) 0.7 Absolute Neuts (auto) 6.3 Absolute Lymphs (auto) 0.98 Nucleated RBC % 0 Sodium 140 Potassium 4.1 Chloride 113 H Carbon Dioxide 10.0 L Anion Gap 17 H BUN 114 H* Creatinine 10.80 H* Estim Creat Clear Calc 4.65 Est GFR (MDRD) Af Amer 5 L Est GFR (MDRD) Non-Af 4 L BUN/Creatinine Ratio 10.6 Glucose 132 H Calcium 8.4 L Total Bilirubin 0.30 AST 14 L ALT 16 Alkaline Phosphatase 125 H Troponin I < 0.015 B-Natriuretic Peptide 7.8 Total Protein 7.1 Albumin 3.6 Globulin 3.5 Albumin/Globulin Ratio 1.0 Lipase 677 H - Medical Decision Making The patient presents with generalized malaise, exertional dyspnea, lack of appetite. The metabolic evaluation and differential was broad. EKG was obtained which was sinus rhythm without acute ischemia. Chest x-ray shows no evidence of volume overload. The patient is anemic, but this does appear to be chronic in nature. However, the patient does have evidence of rather significant acute renal failure with elevated creatinine and BUN. My suspicion is that the uremia and renal disease is causing the bulk of her symptoms. At this point, I do feel that she is going require hospitalization for monitoring of renal function and discussion whether dialysis would be appropriate. She does not meet any indications for acute dialysis at this time. She was discussed with the hospitalist and will be admitted. Impression 1. Acute renal failure 2. Uremia 3. Generalized weakness ED Disposition - Plan for ED Patient: Disposition: Acute Care [facility]
[2020-04-06] MEDS: Ondansetron 4 MG/2 ML Vial IV ×2 (16:47→23:39)
--- NOTE | 2020-04-06 16:50 | RAD_ITS ---
STUDY: X-RAY CHEST REASON FOR EXAM: Female, 70 years old. WEAKNESS AND SOB OVER THE LAST 2 WEEKS. PT ALSO HAS RT SIDED ABD PAIN. TECHNIQUE: Single AP portable upright view of the chest. The patient is mildly rotated to the left. COMPARISON: PA and lateral chest x-ray September 20, 2019. FINDINGS: The lungs are clear and moderately expanded. There is no demonstrated pleural abnormality. Normal size heart. Normal mediastinum and mame. Normal visualized pulmonary arteries. Normal visualized aortic arch and descending thoracic aorta. Normal visualized thoracic spine. Normal visualized ribs, clavicles, and shoulders. There is no demonstrated abnormality of the visualized soft tissue structures of the upper abdomen. RAD/Chest 1 View (Portable) IMPRESSION: No acute cardiopulmonary disease. Electronically Signed: Elmer Alanis MD at 17:14 EDT , Service support ,
[2020-04-06 17:04] LABS: Absolute Lymphocyte Count 0.98 X10^3/uL (0.83-4.51); Absolute Neutrophil Count 6.3 X10^3/uL (2.0-7.7); Basophil# 0.06 X10^3/uL; Basophil% 0.7 % (0-1); Eosinophil# 0.19 X10^3/uL; Eosinophils% 2.3 % (0-5); Hematocrit 27.7 % (37-47); Hemoglobin 8.9 g/dL (12.0-15.0); Lymphocyte # 0.98 X10^3/ul (4.0); Lymphocyte % 12.1 % (19-41); Mean Corp Hgb Conc 32.1 g/dL (32-36); Mean Corpuscular Hgb 28.2 pg (27.0-32.0); Mean Corpuscular Volume 87.7 fL (81-99); Mean Platelet Vol. 12.1 fl (6.2-12.0); Monocyte# 0.56 X10^3/uL; Monocyte% 6.9 % (0-10); NRBC Flagged by Analyzer 0 % (0-5); Neutrophil # 6.25 X10^3/uL (2.7-7.7); Neutrophil % 77.4 % (47-70); Platelet Count 239 K/mm3 (150-450); RBC Distribution Width CV 14.1 % (11.6-14.6); RBC Distribution Width SD 45.4 fl (35.1-43.9); Red Blood Count 3.16 M/mm3 (4.2-5.4); White Blood Count 8.1 K/mm3 (4.4-11.0)
[2020-04-06 17:24] LABS: BNP,B-Type NATRIURETIC PEPTIDE 7.8 pg/mL (0-100)
[2020-04-06 17:56] LABS: AST(SGOT) 14 U/L (15-37); Alanine Aminotransfer ALT/SGPT 16 U/L (13-56); Albumin, Serum 3.6 g/dL (3.2-5.0); Alkaline Phosphatase 125 U/L (45-117); Anion Gap 17 (5-15); BUN 114 mg/dL (7-18); BUN/Creat Ratio 10.6 RATIO (10-20); Calcium,Total 8.4 mg/dL (8.5-10.1); Chloride 113 mmol/L (98-107); EST Glomerular Filtration Rate 4 mL/min (>60); Est Glom Filt Rate - Afr Amer 5 mL/min (>60); Estimated Creatinine Clearance 4.65 ml/min; Globulin 3.5 g/dL (2.2-4.2); Glucose 132 mg/dL (74-106); Lipase 677 U/L (73-393); Potassium 4.1 mmol/L (3.5-5.1); Protein, Total 7.1 g/dL (6.4-8.2); Sodium Level 140 mmol/L (136-145)
--- NOTE | 2020-04-06 18:15 | PCM.HP.STD ---
Problem List (1) Acute kidney injury superimposed on CKD Status: Acute (2) Hypertension Status: Chronic Qualifiers: Hypertension type: essential hypertension Qualified Code(s): I10 - Essential (primary) hypertension History of Present Illness Date of Admission: 04/06/20 Chief Complaint: Nausea, poor p.o. intake - ongoing for 3 weeks The patient is a 70 year old F with past medical history of CKD stage IV, who follows up with a digital press operator in the [facility], history of nonobstructing renal stones, history of gastric bypass who has been unwell for about 3 weeks. It started with a one-week history of diarrhea with nausea. No vomiting. Patient subsequently has been unable to eat or drink. She has been progressively fatigued, has episodes of dizziness. Her urine output has been decreased, appears clear. Denies any hematemesis or hematochezia or melena stools. Denies any chest pain or fever but admits to some chills. Labs in the ED showed temperature of 90 7.8F, heart rate 72, blood pressure 179/98, respiratory 17, SPO2 is 98% on room air. Blood work showed RBC count of 8.1, hemoglobin 8.9, platelet count 239, sodium 140, potassium 4.1, chloride 113, bicarbonate 10, BUN 114, creatinine 10.8, glucose 132, calcium 8.4, phosphorus 9.2, magnesium 1.9, iron is 171, TIBC 204, iron saturation 83.8, troponins are negative. UA is cloudy, nitrite negative, leukocyte esterase 500, WBC count 25-50. Patient is asymptomatic of dysuria or frequency. Chest x-ray shows no acute cardiopulmonary disease. Past Medical History Past Medical History (Chronic Problems): Chronic Problems Renal calculi (Chronic) Urinary tract infection (Chronic) Hypertension (Chronic) Allergies adhesive tape Allergy (Verified 04/06/20 16:14) Rash amoxicillin [From Augmentin] Allergy (Verified 04/06/20 16:14) Swelling cephalexin [From Keflex] Allergy (Verified 04/06/20 16:14) Swelling clavulanic acid [From Augmentin] Allergy (Verified 04/06/20 16:14) Swelling latex Allergy (Verified 04/06/20 16:14) Rash Penicillins [PCN] Allergy (Verified 04/06/20 16:14) Swelling sulfamethoxazole [From Bactrim] Allergy (Verified 04/06/20 16:14) rash,swellling, itching trimethoprim [From Bactrim] Allergy (Verified 04/06/20 16:14) rash,swellling, itching Home Medications: Ambulatory Orders Medication Instructions Recorded RX: Amlodipine [Norvasc] 10 mg PO DAILY 04/19/18 RX: Sodium Bicarbonate 1,300 mg PO BID 09/20/19 Surgical History: appendectomy, hysterectomy, - - 30 years ago 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, multiple cystoscopies due to kidney stones Psychiatric History: No pertinent psych hx SHIP FITTER History: No pertinent SHIP FITTER history Lives: With Family Smoking Status: Never smoker Tobacco Use: Non-smoker Alcohol: None Drugs: None - *Family History Maternal History Items: No pertinent history Paternal History Items: No pertinent history Review of Systems Constitutional: Reports: Anorexia, Chills, Malaise, Weakness, Fatigue. Denies: Fever, Night Sweats, Weight Change Eyes: Denies: Blurred vision, Cataracts, Conjunctivae Inflammation, Pain, Redness, Vision Change HEENT: Denies: Difficulty Hearing, Difficulty Swallowing, Head Aches, Hearing Changes, Sinus Congestion, Sinus Drainage, Sore Throat Cardiovascular: Reports: Light Headedness. Denies: Chest Pain, Claudication, Edema, Orthopnea, Palpitations, Paroxysmal Noc. Dyspnea, Syncope Respiratory: Denies: Cough, Hemoptysis, Shortness of Breath, Shortness of breath at rest, Shortness of breath upon exertion, Sputum production Gastrointestinal: Reports: Nausea. Denies: Abdominal Pain, Constipation, Dyspepsia, Hematemesis, Vomiting Genitourinary: Denies: Dysuria, Frequency, Incontinence Gynecological: Denies: Breast symptoms, Excessively long or heavy periods, Vaginal discharge, Vaginal itching Musculoskeletal: Denies: Joint Pain, Joint stiffness, Joint swelling, Joint Tenderness Skin: Denies: Rash, Wounds Neurological: Denies: Numbness, Tingling, Focal weakness Psychiatric: Denies: Anxiety, Depression, Homicidal Ideations, Suicidal Ideations Hematologic/ Lymphatic: Denies: Easy Bruising, Easy Bleeding VTE Information - Inpt Only VTE Present on Admission: No VTE Pharm Prophylaxis ordered?: Yes Patient Problems: Active and Suspected Problems Acute kidney injury superimposed on CKD (Acute) - Physical Exam Vitals/I&O's: Vital Signs Temp Pulse Resp BP Pulse Ox 97.8 F 72 17 179/96 H 98 04/06/20 16:14 04/06/20 16:14 04/06/20 16:14 04/06/20 16:14 04/06/20 16:14 Oxygen Delivery Method Room Air Weight: 77.111 kg Body Mass Index (BMI) 26.6 Intake and Output for Last 24 Hours 04/04/20 04/05/20 04/06/20 23:59 23:59 23:59 Intake Total 500 / 500 Balance 500 / 500 General: Alert, Oriented x3, Cooperative, No apparent distress HEENT: Atraumatic, PERRLA, EOMI, Normocephalic Oral: Dry Mucosa Neck: Supple Lungs: Clear to auscultation, Normal air movement Cardiovascular: Regular rate, Regular Rhythm, Normal S1, Normal S2, No murmurs Abdomen: Bowel Sounds Present, Soft, Non Tender, Non-Distended, No Hepato-splenomegaly Extremities: No edema Skin: No rashes, No breakdown Musculoskeletal: No Tenderness to Palpation of Joints or Extremities Lymphatic: No Cervical, Supraclavicular, or Inguinal Adenopathy Neurological: Cranial nerves II-XII grossly intact, Neuro grossly intact Psych/Mental Status: Normal Affect, Appropriate Laboratory Results 04/06/20 16:50: WBC 8.1, RBC 3.16 L, Hgb 8.9 L, Hct 27.7 L, MCV 87.7, MCH 28.2, MCHC 32.1, RDW Std Deviation 45.4 H, RDW Coeff of [place] 14.1, Plt Count 239, MPV 12.1 H, Immature Gran % (Auto) 0.600, Neut % (Auto) 77.4 H, Lymph % (Auto) 12.1 L, Redwood % (Auto) 6.9, Eos % (Auto) 2.3, Baso % (Auto) 0.7, Absolute Neuts (auto) 6.3, Absolute Lymphs (auto) 0.98, Nucleated RBC % 0 04/06/20 16:50: Sodium 140, Potassium 4.1, Chloride 113 H, Carbon Dioxide 10.0 L, Anion Gap 17 H, BUN 114 H*, Creatinine 10.80 H*, Estim Creat Clear Calc 4.65, Est GFR (MDRD) Af Amer 5 L, Est GFR (MDRD) Non-Af 4 L, BUN/Creatinine Ratio 10.6, Glucose 132 H, Calcium 8.4 L, Total Bilirubin 0.30, AST 14 L, ALT 16, Alkaline Phosphatase 125 H, Troponin I < 0.015, Total Protein 7.1, Albumin 3.6, Globulin 3.5, Albumin/Globulin Ratio 1.0, Lipase 677 H 04/06/20 16:50: B-Natriuretic Peptide 7.8 04/06/20 17:25: Blood Type Pending, Antibody Screen Pending Assessment/Plan All Active Problems Acute kidney injury superimposed on CKD (Acute) 70 year old F with past medical history of CKD stage IV, who follows up with a digital press operator in the [place], history of nonobstructing renal stones, history of gastric bypass who has been unwell for about 3 week comes in with protracted nausea as well as fatigue. 1. Acute kidney injury on CKD stage IV, prerenal secondary to poor p.o. intake Patient's baseline creatinine is between 2-3, admitting creatinine is 10.8, BUN is 114. Admit to PCU, IV fluids, strict I's and O's, Hoover catheter placement Ultrasound of the kidneys and bladder, urine sodium, urine creatinine Nephrology consulted 2. Hyperphosphatemia secondary to #1, Will be addressed by nephrology 3. Hypertension, controlled, continue on home amlodipine 4. Nonobstructing renal stones, unclear if current PEARL is secondary to post renal etiology Will get ultrasound of the kidney and bladder 5. History of gastric bypass, will check for iron stores as well as magnesium 6. DVT prophylaxis with heparin subcu 7. Code status - DNR-CCA Discussed in detail with the patient explaining the various types of CODE STATUS-full code, DNR CCA, DNR CC. Patient says she does not wish to be kept on artificial support. I recommended that she appoints healthcare power of assistant city attorney. Time spent discussing CODE STATUS 17 minutes Inpatient E&M: 68039 Init Hosp L3 Procedures: 30894 Advncd Care Plan 30 Min
--- NOTE | 2020-04-06 18:16 | NURSING ---
PCU ACUTE ON CHRONIC KIDNEY INJURY PAINTSIL
[2020-04-06 18:42] VITALS: BP 172/97; PULSE 66; RESP 17; TEMP 36.6; O2SAT 99
[2020-04-06 19:00] VITALS: BP 155/72; PULSE 67; RESP 18; TEMP 36.6; O2SAT 100; BMI 27.8
--- NOTE | 2020-04-06 19:28 | US_ITS ---
STUDY: RENAL ULTRASOUND - COMPLETE REASON FOR EXAM: Female, 70 years old. PEARL PEARL TECHNIQUE: Ultrasound evaluation of the kidneys was performed with real-time and static patrick-scale imaging. COMPARISON: None. FINDINGS: RIGHT KIDNEY: Severe renal atrophy. The right kidney measures 8.2 x 4.3 x 1.5 cm. There is a normal cortex of the right kidney. The renal cortex measures 0.6 cm. There is no right renal mass or cyst. There are multiple right renal calculi, the largest measures approximately 21 mm. There is no right hydronephrosis. DISTAL RIGHT URETER: There is non-visualization of the distal right ureter. There is no demonstrated right ureterovesical junction calculus. There is no demonstrated right ureteral jet. LEFT KIDNEY: Severe renal atrophy. The left kidney measures 8.4 x 3.5 x 5.2 cm. There is a normal cortex of the left kidney. The renal cortex measures 0.9 cm. There is no left renal mass or cyst. There are multiple left renal calculi, the largest measures approximately 15 mm. There is no left hydronephrosis. DISTAL LEFT URETER: There is non-visualization of the distal left ureter. There is no demonstrated left ureterovesical junction calculus. There is no demonstrated left ureteral jet. AORTA: There is no demonstrated aneurysm.. I.V.C.: The IVC is patent. BLADDER: The distended urinary bladder has a volume of 40 ml. There is a normal wall thickness of the distended urinary bladder. There is no demonstrated mass within the urinary bladder. There are no demonstrated bladder calculi. US/Kidney and Bladder IMPRESSION: Severe bilaterally renal atrophy. The kidneys demonstrate largest measures 20 mm without hydronephrosis. 3 Left renal cysts, the largest measures 3 cm. Electronically Signed: Miles Conteh, at 0:43 EDT Tel , Service support ,
[2020-04-06 19:30] VITALS: PULSE 63
[2020-04-06 19:53] VITALS: BMI 27.8
[2020-04-06 20:06] LABS: Mucous, Urine 0 SEEN /hpf (<or=2+)
[2020-04-06 20:16] LABS: Color, Urine Yellow (Yellow); Glucose, Dipstick Normal (Normal); Ketone-Dipstick Negative (Negative); Leukocyte Esterase-Dipstick 500 /ul (Negative); Nitrite-Dipstick Negative (Negative); Occult Blood-Urine 25 /ul (Negative); Protein-Dipstick 30 mg/dl (Negative); Urine Bilirubin Dipstick Negative (Negative); Urine Clarity Sl. Cloudy (Clear); Urine Urobilinogen Normal (Normal)
[2020-04-06 20:17] LABS: Urine Sodium 45 mmol/L (Not Establ.)
[2020-04-06 20:18] LABS: Iron 171 ug/dL (50-170); Iron Binding Capacity,Total 204 ug/dL (250-450); Magnesium 1.9 mg/dL (1.6-2.6); PERCENT IRON SATURATION 83.8 % (15.0-55.0)
[2020-04-06 20:25] LABS: Bacteria RARE /hpf (None Seen); Red Blood Cells-Urine 0-5 SEEN /hpf (0-5); Squamous Epithelial Cells - UA 0-5 SEEN /hpf (5-10); White Blood Cells 25-50 SEEN /hpf (0-5)
[2020-04-06 20:32] LABS: Phosphorus 9.2 mg/dL (2.5-4.9)
[2020-04-06] MEDS: 0.9% Normal Saline 1,000 ML 125 ML IV (21:12)
[2020-04-06] MEDS: amLODIPine 10 MG Tablet PO (21:13)
[2020-04-06] MEDS: Heparin Injection (Vial) 5,000 UNIT/ML VIAL 5000 UNIT SC (21:16)
[2020-04-06 21:25] VITALS: RESP 18; O2SAT 98
[2020-04-06] MEDS: 0.9% Saline Lock 10 ML Syringe IV ×2 (23:30→23:39)
[2020-04-07] VITALS (18 sets, daily range): BP systolic 106–143; BP diastolic 55–71; PULSE 59–74; RESP 16–18; TEMP 36.6–36.9; O2SAT 97–100; BMI 28.3
[2020-04-07] MEDS: 0.9% Saline Lock 10 ML Syringe IV ×3 (00:08→23:30)
[2020-04-07] MEDS: 0.9% Normal Saline 1,000 ML 125 ML IV (05:07)
[2020-04-07] MEDS: Heparin Injection (Vial) 5,000 UNIT/ML VIAL 5000 UNIT SC ×2 (05:13→22:00)
[2020-04-07 05:29] LABS: Absolute Lymphocyte Count 1.64 X10^3/uL (0.83-4.51); Basophil# 0.07 X10^3/uL; Basophil% 0.8 % (0-1); Eosinophil# 0.34 X10^3/uL; Eosinophils% 3.8 % (0-5); Hemoglobin 7.5 g/dL (12.0-15.0); Lymphocyte # 1.64 X10^3/ul (4.0); Lymphocyte % 18.4 % (19-41); Mean Corp Hgb Conc 31.3 g/dL (32-36); Mean Corpuscular Hgb 27.8 pg (27.0-32.0); Mean Corpuscular Volume 88.9 fL (81-99); Mean Platelet Vol. 11.6 fl (6.2-12.0); Monocyte# 0.78 X10^3/uL; Monocyte% 8.8 % (0-10); NRBC Flagged by Analyzer 0 % (0-5); Neutrophil # 6.04 X10^3/uL (2.7-7.7); Neutrophil % 67.9 % (47-70); Platelet Count 219 K/mm3 (150-450); RBC Distribution Width CV 14.4 % (11.6-14.6); RBC Distribution Width SD 46.1 fl (35.1-43.9); White Blood Count 8.9 K/mm3 (4.4-11.0)
[2020-04-07 06:07] LABS: AST(SGOT) 13 U/L (15-37); Alanine Aminotransfer ALT/SGPT 16 U/L (13-56); Albumin, Serum 3.2 g/dL (3.2-5.0); Alkaline Phosphatase 105 U/L (45-117); Anion Gap 17 (5-15); BUN 111 mg/dL (7-18); BUN/Creat Ratio 11.3 RATIO (10-20); Chloride 116 mmol/L (98-107); Creatinine, Serum 9.81 mg/dL (0.55-1.02); EST Glomerular Filtration Rate 4 mL/min (>60); Est Glom Filt Rate - Afr Amer 5 mL/min (>60); Estimated Creatinine Clearance 5.12 ml/min; Globulin 3.1 g/dL (2.2-4.2); Glucose 102 mg/dL (74-106); Phosphorus 8.7 mg/dL (2.5-4.9); Potassium 3.9 mmol/L (3.5-5.1); Protein, Total 6.3 g/dL (6.4-8.2); Sodium Level 142 mmol/L (136-145)
--- NOTE | 2020-04-07 11:09 | CASEMGMT ---
BRENDEN MARKS assessment: Face to Face with patient for initial transition planning/care coordination assessment. BRENDEN MARKS introduced self and role at [facility], pt voices understanding and consents to assessment at this time. Pt is sitting up in chair in no distress at this time. Pt is A/Ox4 at this time and answers all questions appropriately at this time. Care providers, pharmacy, and demographics verified at this time. Presentation: c/o weakness/SOB for last 2 weeks-pt also c/o right sided abd pain Admitting dx: PEARL PCP: Kwan Specialists: dada Fernando in [place] Preferred Pharmacy: [facility] Insurance: [facility] A/B, AARP Prescription Benefit: Yes Living Will/HPOA: Pt states does not have LW/HPOA but would like to complete at this time. Fredi HERNANDEZ aware, voices understanding. LNOK: María Elena Dumont, daughter Living Arrangements: Pt states lives with her daughter and her sister in 2 story home and states no concerns at home at this time. Pt states is independent with ADL's. Transportation: Pt states drives self and states no transportation concerns at this time. DME/HHC: Pt states no current DME or need for any at this time. Pt states has HHC in the past for antibx d/t sepsis and states no hx of SNF. Pt to be set up with OP dialysis at [facility]. Pt states no concerns with going home at time of discharge. Pt states is retired. Pt states does smoke or drink ETOH. Pt states no further concerns/needs at this time. CM to follow OP dialysis set up and for any further discharge planning/needs. Advised pt to ask for CM if any further questions/concerns/needs arise, voices understanding. Pt Goal: Home Plan: Home w/ new OP dialysis set up. S[place]en BRENDEN MARKS
--- NOTE | 2020-04-07 11:25 | CASEMGMT ---
Per Dr. Keene, pt needs OP dialysis set up at this time for ESRD [facility]. This RN CM to room to discuss with pt and pt states no preference for dialysis schedule at this time and [facility] fax[facility] to [facility] at this time. Hep panel/1st treatment/tunnel cath notes will need faxed when obtained. CM to follow. Dr. Ch to bedside at this time to discuss tunnel cath placement with pt at this time. Pt may have 1st dialysis this pm if tunnel cath gets placed. SStkail RN CM
--- NOTE | 2020-04-07 11:30 | PCM.CONS.GEN ---
Problem List (1) Acute kidney injury superimposed on CKD Status: Acute Reason for Consult Date of Consultation: 04/07/20 History of Present Illness: The patient is a 70 year old F who I have been asked to see today for placement of tunneled dialysis catheters. Patient is referred by Dr. Keene and a written copy of my surgical recommendations will be present in the electronic medical record. This is a 70-year-old female. She was admitted to the [facility] yesterday. She has a long-term history of chronic kidney disease. She was actually supposed to tour a dialysis center just prior to the COVID-19 pandemic. That appointment was canceled. She has not been feeling well. It has been discussed with her that she would eventually need dialysis. She does not recall that she was ever made a referral for fistula placement. On her presentation her BUN was 114 and creatinine 10.8 and currently her BUN is 111 and creatinine 9.81. Potassium level is 4.1 and is currently 3.9. She is known to be significantly anemic with a white blood cell count of 8.9 with a hemoglobin 7.5 hematocrit 24 platelet count 219,000 Although she is DNR CC she does not want to pursue dialysis. She states that she has not had any head and neck procedures. She has a history of chronic renal calculi or chronic recurrent urinary tract infections and hypertension. Past Medical History Past Medical History (Chronic Problems): Chronic Problems Renal calculi (Chronic) Urinary tract infection (Chronic) Hypertension (Chronic) Allergies adhesive tape Allergy (Verified 04/06/20 16:14) Rash amoxicillin [From Augmentin] Allergy (Verified 04/06/20 16:14) Swelling cephalexin [From Keflex] Allergy (Verified 04/06/20 16:14) Swelling clavulanic acid [From Augmentin] Allergy (Verified 04/06/20 16:14) Swelling latex Allergy (Verified 04/06/20 16:14) Rash Penicillins [PCN] Allergy (Verified 04/06/20 16:14) Swelling sulfamethoxazole [From Bactrim] Allergy (Verified 04/06/20 16:14) rash,swellling, itching trimethoprim [From Bactrim] Allergy (Verified 04/06/20 16:14) rash,swellling, itching Home Medications: Ambulatory Orders Medication Instructions Recorded Amlodipine [Norvasc] 10 mg PO DAILY 04/19/18 Sodium Bicarbonate 1,300 mg PO BID 09/20/19 Surgical History: appendectomy, hysterectomy, - - 30 years ago 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, multiple cystoscopies due to kidney stones Psychiatric History: No pertinent psych hx ASSOCIATE CURATOR History: No pertinent ASSOCIATE CURATOR history Lives: With Family Smoking Status: Never smoker Tobacco Use: Non-smoker Alcohol: None Drugs: None - *Family History Maternal History Items: No pertinent history Paternal History Items: No pertinent history Review of Systems Constitutional: Denies: Anorexia HEENT: Denies: Difficulty Swallowing Cardiovascular: Denies: Chest Pain Respiratory: Denies: Cough, Shortness of Breath Patient Problems: Active and Suspected Problems Acute kidney injury superimposed on CKD (Acute) - Physical Exam Vitals/I&O's: Vital Signs Temp Pulse Resp BP Pulse Ox 98.1 F 65 16 143/68 H 97 04/07/20 06:45 04/07/20 11:00 04/07/20 06:45 04/07/20 06:45 04/07/20 06:45 Oxygen Delivery Method Room Air Weight: 180 lb 8.937 oz Body Mass Index (BMI) 27.8 Intake and Output for Last 24 Hours 04/05/20 04/06/20 04/07/20 23:59 23:59 23:59 Intake Total 750 / 750 1289.58 / 1289.58 Output Total 300 / 300 550 / 550 Balance 450 / 450 739.58 / 739.58 General: Alert, Oriented x3, Cooperative, No apparent distress HEENT: Atraumatic Oral: Moist Mucosa Neck: Supple, No JVD, Negative Carotid Bruits, - - Carotids are 2+. Lungs: Clear to auscultation, Normal air movement Cardiovascular: Regular rate, Regular Rhythm Abdomen: Soft, Non Tender Extremities: No Calf Tenderness Neurological: - - Normal cognition Psych/Mental Status: Normal Affect Laboratory Results 04/06/20 16:50: WBC 8.1, RBC 3.16 L, Hgb 8.9 L, Hct 27.7 L, MCV 87.7, MCH 28.2, MCHC 32.1, RDW Std Deviation 45.4 H, RDW Coeff of [place] 14.1, Plt Count 239, MPV 12.1 H, Immature Gran % (Auto) 0.600, Neut % (Auto) 77.4 H, Lymph % (Auto) 12.1 L, [place] % (Auto) 6.9, Eos % (Auto) 2.3, Baso % (Auto) 0.7, Absolute Neuts (auto) 6.3, Absolute Lymphs (auto) 0.98, Nucleated RBC % 0 04/06/20 16:50: Sodium 140, Potassium 4.1, Chloride 113 H, Carbon Dioxide 10.0 L, Anion Gap 17 H, BUN 114 H*, Creatinine 10.80 H*, Estim Creat Clear Calc 4.65, Est GFR (MDRD) Af Amer 5 L, Est GFR (MDRD) Non-Af 4 L, BUN/Creatinine Ratio 10.6, Glucose 132 H, Calcium 8.4 L, Total Bilirubin 0.30, AST 14 L, ALT 16, Alkaline Phosphatase 125 H, Troponin I < 0.015, Total Protein 7.1, Albumin 3.6, Globulin 3.5, Albumin/Globulin Ratio 1.0, Lipase 677 H 04/06/20 16:50: B-Natriuretic Peptide 7.8 04/06/20 16:50: Magnesium 1.9, Iron 171 H, TIBC 204 L, Iron Saturation 83.8 H 04/06/20 16:50: Phosphorus 9.2 H* 04/06/20 17:25: Blood Type O NEGATIVE, Antibody Screen NEGATIVE 04/06/20 19:58: Urine Color Yellow, Urine Clarity Sl. Cloudy, Urine pH 5.0, Ur Specific [place] 1.010, Urine Protein 30 H, Urine Glucose (UA) Normal, Urine Ketones Negative, Urine Occult Blood 25 H, Urine Nitrite Negative, Urine Bilirubin Negative, Urine Urobilinogen Normal, Ur Leukocyte Esterase 500 H, Urine RBC 0-5 SEEN, Urine WBC 25-50 SEEN, Ur Squamous Epith Cells 0-5 SEEN, Urine Bacteria RARE, Urine Mucus 0 SEEN 04/06/20 19:58: Urine Creatinine 63.00 04/06/20 19:58: Ur Random Sodium 45 04/06/20 20:20: Troponin I < 0.015 04/06/20 22:25: Troponin I 0.015 04/07/20 05:14: WBC 8.9, RBC 2.70 L, Hgb 7.5 L, Hct 24.0 L, MCV 88.9, MCH 27.8, MCHC 31.3 L, RDW Std Deviation 46.1 H, RDW Coeff of [place] 14.4, Plt Count 219, MPV 11.6, Immature Gran % (Auto) 0.300, Neut % (Auto) 67.9, Lymph % (Auto) 18.4 L, [place] % (Auto) 8.8, Eos % (Auto) 3.8, Baso % (Auto) 0.8, Absolute Neuts (auto) 6.0, Absolute Lymphs (auto) 1.64, Nucleated RBC % 0 04/07/20 05:14: Sodium 142, Potassium 3.9, Chloride 116 H, Carbon Dioxide 9.0 L*, Anion Gap 17 H, BUN 111 H*, Creatinine 9.81 H*, Estim Creat Clear Calc 5.12, Est GFR (MDRD) Af Amer 5 L, Est GFR (MDRD) Non-Af 4 L, BUN/Creatinine Ratio 11.3, Glucose 102, Calcium 8.0 L, Phosphorus 8.7 H, Total Bilirubin 0.30, AST 13 L, ALT 16, Alkaline Phosphatase 105, Total Protein 6.3 L, Albumin 3.2, Globulin 3.1, Albumin/Globulin Ratio 1.0 Current Medications Amlodipine Besylate (Norvasc) 10 mg PO QHS [facility] Last Admin: 04/06/20 21:13 Dose: 10 mg Documented by: Heparin Sodium (Porcine) (Heparin Na) 5,000 unit SC Q8 [facility] Last Admin: 04/07/20 05:13 Dose: 5,000 unit Documented by: Hydralazine HCl (Apresoline Iv) 5 mg IV Q6H PRN PRN PRN Reason: BLOOD PRESSURE Sodium Chloride () 250 mls @ 15 mls/hr IV .[id number] PRN PRN Reason: Saline Flush Sodium Chloride () 250 mls @ 15 mls/hr IV .[id number] PRN PRN Reason: Additional IVPB Infusion Sodium Bicarbonate 150 meq/ (Dextrose) 1,150 mls @ 100 mls/hr IV .[id number] [facility] Clindamycin Phosphate 900 mg/ (Dextrose) 106 mls @ 150 mls/hr IV X1 ONE Stop: 04/07/20 11:52 Ondansetron HCl (Zofran) 4 mg IV Q8H PRN PRN PRN Reason: NAUSEA/VOMITING Last Admin: 04/06/20 23:39 Dose: 4 mg Documented by: Sodium Chloride () 10 - 40 ml IV UD PRN PRN Reason: SALINE FLUSH Last Admin: 04/07/20 05:08 Dose: 30 ml Documented by: Assessment/Plan All Active Problems Acute kidney injury superimposed on CKD (Acute) I have proposed with the patient a right internal jugular tunneled dialysis catheter placement. I have described the technique, benefit, risk and alternatives. We may have to utilize a left internal jugular vein if indicated. The patient did have breakfast so we will need to wait a minimum of 6 hours from solid food. The patient has not yet been COVID testing we will need to await the results of that testing as well. Once we have those results then we will proceed with placement of the catheters. Appreciate the opportunity of assisting with her surgical care Kenney Ch M.D., F.A.C.S.
--- NOTE | 2020-04-07 11:47 | CON.PCM_ITS ---
Problem List (1) ESRD (end stage renal disease) on dialysis Status: Acute Consultation - Renal 04/07/20 PCP/ Referring MD: Requesting physician: [] Primary care physician: Dr. Jewell Bowens DO Reason for Consultation:: CKD 5 - History of Present Illness History of Present Illness: The patient is a 70 year old F who was admitted to the hospital with complaints of generalized weakness, nausea, metallic taste in the mouth. Nephrology consulted for renal failure. She has known history of CKD stage IV/V. sees my associate Dr Fernando. last Clinic visit was in October. - Allergies Allergies: Allergies adhesive tape Allergy (Verified 04/06/20 16:14) Rash amoxicillin [From Augmentin] Allergy (Verified 04/06/20 16:14) Swelling cephalexin [From Keflex] Allergy (Verified 04/06/20 16:14) Swelling clavulanic acid [From Augmentin] Allergy (Verified 04/06/20 16:14) Swelling latex Allergy (Verified 04/06/20 16:14) Rash Penicillins [PCN] Allergy (Verified 04/06/20 16:14) Swelling sulfamethoxazole [From Bactrim] Allergy (Verified 04/06/20 16:14) rash,swellling, itching trimethoprim [From Bactrim] Allergy (Verified 04/06/20 16:14) rash,swellling, itching - Current Medications Current Medications: Current Medications Amlodipine Besylate (Norvasc) 10 mg PO QHS [facility] Last Admin: 04/06/20 21:13 Dose: 10 mg Documented by: Heparin Sodium (Porcine) (Heparin Na) 5,000 unit SC Q8 [facility] Last Admin: 04/07/20 05:13 Dose: 5,000 unit Documented by: Hydralazine HCl (Apresoline Iv) 5 mg IV Q6H PRN PRN PRN Reason: BLOOD PRESSURE Sodium Chloride () 250 mls @ 15 mls/hr IV .[id number] PRN PRN Reason: Saline Flush Sodium Chloride () 250 mls @ 15 mls/hr IV .[id number] PRN PRN Reason: Additional IVPB Infusion Sodium Bicarbonate 150 meq/ (Dextrose) 1,150 mls @ 100 mls/hr IV .[id number] [facility] Clindamycin Phosphate 900 mg/ (Dextrose) 106 mls @ 150 mls/hr IV X1 ONE Stop: 04/07/20 11:52 Ondansetron HCl (Zofran) 4 mg IV Q8H PRN PRN PRN Reason: NAUSEA/VOMITING Last Admin: 04/06/20 23:39 Dose: 4 mg Documented by: Sodium Chloride () 10 - 40 ml IV UD PRN PRN Reason: SALINE FLUSH Last Admin: 04/07/20 05:08 Dose: 30 ml Documented by: - Past Medical History Past Medical History (Chronic Problems): Chronic Problems Renal calculi (Chronic) Urinary tract infection (Chronic) Hypertension (Chronic) - Past Surgical History Surgical History: appendectomy, hysterectomy, - - 30 years ago 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, multiple cystoscopies due to kidney stones - Social History Smoking Status: Never smoker Alcohol: None Drugs: None - Family History Maternal History Items: No pertinent history Paternal History Items: No pertinent history Review of Systems Constitutional: Reports: Anorexia, Malaise, Fatigue Patient Problems: Active and Suspected Problems Acute kidney injury superimposed on CKD (Acute) ESRD (end stage renal disease) on dialysis (Acute) - Physical Exam Vitals/I&O's: Vital Signs Temp Pulse Resp BP Pulse Ox 98.1 F 67 18 137/55 H 99 04/07/20 11:35 04/07/20 11:35 04/07/20 11:35 04/07/20 11:35 04/07/20 11:35 Oxygen Delivery Method Room Air Weight: 81.9 kg Body Mass Index (BMI) 27.8 Intake and Output for Last 24 Hours 04/05/20 04/06/20 04/07/20 23:59 23:59 23:59 Intake Total 750 / 750 1389.58 / 1389.58 Output Total 300 / 300 1000 / 1000 Balance 450 / 450 389.58 / 389.58 General: Alert, Oriented x3, Cooperative HEENT: Atraumatic, PERRLA, EOMI, Normocephalic Neck: Supple, No JVD, Negative Carotid Bruits Lungs: Clear to auscultation, Normal air movement Cardiovascular: Regular rate, No murmurs Abdomen: Bowel Sounds Present, Soft, Non Tender Extremities: No edema, Capillary Refill Less than 3 Seconds Skin: No rashes, No breakdown Musculoskeletal: No Tenderness to Palpation of Joints or Extremities Neurological: Cranial nerves II-XII grossly intact Psych/Mental Status: Normal Affect, Appropriate Laboratory Results 04/06/20 16:50: WBC 8.1, RBC 3.16 L, Hgb 8.9 L, Hct 27.7 L, MCV 87.7, MCH 28.2, MCHC 32.1, RDW Std Deviation 45.4 H, RDW Coeff of [place] 14.1, Plt Count 239, MPV 12.1 H, Immature Gran % (Auto) 0.600, Neut % (Auto) 77.4 H, Lymph % (Auto) 12.1 L, [place] % (Auto) 6.9, Eos % (Auto) 2.3, Baso % (Auto) 0.7, Absolute Neuts (auto) 6.3, Absolute Lymphs (auto) 0.98, Nucleated RBC % 0 04/06/20 16:50: Sodium 140, Potassium 4.1, Chloride 113 H, Carbon Dioxide 10.0 L , Anion Gap 17 H, BUN 114 H*, Creatinine 10.80 H*, Estim Creat Clear Calc 4.65, Est GFR (MDRD) Af Amer 5 L, Est GFR (MDRD) Non-Af 4 L, BUN/Creatinine Ratio 10.6, Glucose 132 H, Calcium 8.4 L, Total Bilirubin 0.30, AST 14 L, ALT 16, Alkaline Phosphatase 125 H, Troponin I < 0.015, Total Protein 7.1, Albumin 3.6, Globulin 3.5, Albumin/Globulin Ratio 1.0, Lipase 677 H 04/06/20 16:50: B-Natriuretic Peptide 7.8 04/06/20 16:50: Magnesium 1.9, Iron 171 H, TIBC 204 L, Iron Saturation 83.8 H 04/06/20 16:50: Phosphorus 9.2 H* 04/06/20 17:25: Blood Type O NEGATIVE, Antibody Screen NEGATIVE 04/06/20 19:58: Urine Color Yellow, Urine Clarity Sl. Cloudy, Urine pH 5.0, Ur Specific [place] 1.010, Urine Protein 30 H, Urine Glucose (UA) Normal, Urine Ketones Negative, Urine Occult Blood 25 H, Urine Nitrite Negative, Urine Bilirubin Negative, Urine Urobilinogen Normal, Ur Leukocyte Esterase 500 H, Urine RBC 0-5 SEEN, Urine WBC 25-50 SEEN, Ur Squamous Epith Cells 0-5 SEEN, Ur ine Bacteria RARE, Urine Mucus 0 SEEN 04/06/20 19:58: Urine Creatinine 63.00 04/06/20 19:58: Ur Random Sodium 45 04/06/20 20:20: Troponin I < 0.015 04/06/20 22:25: Troponin I 0.015 04/07/20 05:14: WBC 8.9, RBC 2.70 L, Hgb 7.5 L, Hct 24.0 L, MCV 88.9, MCH 27.8, MCHC 31.3 L, RDW Std Deviation 46.1 H, RDW Coeff of [place] 14.4, Plt Count 219, MPV 11.6, Immature Gran % (Auto) 0.300, Neut % (Auto) 67.9, Lymph % (Auto) 18.4 L, [place] % (Auto) 8.8, Eos % (Auto) 3.8, Baso % (Auto) 0.8, Absolute Neuts (auto) 6.0, Absolute Lymphs (auto) 1.64, Nucleated RBC % 0 04/07/20 05:14: Sodium 142, Potassium 3.9, Chloride 116 H, Carbon Dioxide 9.0 L* , Anion Gap 17 H, BUN 111 H*, Creatinine 9.81 H*, Estim Creat Clear Calc 5.12, Est GFR (MDRD) Af Amer 5 L, Est GFR (MDRD) Non-Af 4 L, BUN/Creatinine Ratio 11.3, Glucose 102, Calcium 8.0 L, Phosphorus 8.7 H, Total Bilirubin 0.30, AST 13 L, ALT 16, Alkaline Phosphatase 105, Total Protein 6.3 L, Albumin 3.2, Globulin 3.1, Albumin/Globulin Ratio 1.0 04/07/20 11:35: COVID-19 (TO) Pending Current Medications Amlodipine Besylate (Norvasc) 10 mg PO QHS [facility] Last Admin: 04/06/20 21:13 Dose: 10 mg Documented by: Heparin Sodium (Porcine) (Heparin Na) 5,000 unit SC Q8 [facility] Last Admin: 04/07/20 05:13 Dose: 5,000 unit Documented by: Hydralazine HCl (Apresoline Iv) 5 mg IV Q6H PRN PRN PRN Reason: BLOOD PRESSURE Sodium Chloride () 250 mls @ 15 mls/hr IV .[id number] PRN PRN Reason: Saline Flush Sodium Chloride () 250 mls @ 15 mls/hr IV .[id number] PRN PRN Reason: Additional IVPB Infusion Sodium Bicarbonate 150 meq/ (Dextrose) 1,150 mls @ 100 mls/hr IV .[id number] [facility] Clindamycin Phosphate 900 mg/ (Dextrose) 106 mls @ 150 mls/hr IV X1 ONE Stop: 04/07/20 11:52 Ondansetron HCl (Zofran) 4 mg IV Q8H PRN PRN PRN Reason: NAUSEA/VOMITING Last Admin: 04/06/20 23:39 Dose: 4 mg Documented by: Sodium Chloride () 10 - 40 ml IV UD PRN PRN Reason: SALINE FLUSH Last Admin: 04/07/20 05:08 Dose: 30 ml Documented by: Assessment/Plan All Active Problems Acute kidney injury superimposed on CKD (Acute) ESRD (end stage renal disease) on dialysis (Acute) CKD stage IV/V Now progressed to end-stage renal disease. She was in the process of starting dialysis as outpatient anyway. No presented with severe acidosis, significant uremic symptoms. Has dyspnea with minimal exertion. will start dialysis acidosis. change fluids to bicarbonate. can stop once dialysis done
--- NOTE | 2020-04-07 12:24 | PCM.PN.HOSP ---
Patient Problems: Active and Suspected Problems Acute kidney injury superimposed on CKD (Acute) ESRD (end stage renal disease) on dialysis (Acute) Reason for Visit: PEARL Subjective: complains of heartburn. worse when lying flat. Vitals/I&O's: Vital Signs Temp Pulse Resp BP Pulse Ox 36.7 C 67 18 137/55 H 99 04/07/20 11:35 04/07/20 11:35 04/07/20 11:35 04/07/20 11:35 04/07/20 11:35 Oxygen Delivery Method Room Air Weight: 81.9 kg Body Mass Index (BMI) 27.8 Intake and Output for Last 24 Hours 04/05/20 04/06/20 04/07/20 23:59 23:59 23:59 Intake Total 750 / 750 2289.58 / 2289.58 Output Total 300 / 300 1000 / 1000 Balance 450 / 450 1289.58 / 1289.58 General: Alert, No apparent distress HEENT: Atraumatic, Normocephalic Oral: Moist Mucosa, No Gingival or Mucosal Lesions/ Ulcerations Neck: No Nodes, Thyroid Normal Size and Texture Lungs: Clear to auscultation, Normal air movement, No rhonchi, No wheeze Cardiovascular: Regular rate, Regular Rhythm, Normal S1, Normal S2 Abdomen: Bowel Sounds Present, Soft, Non Tender, Non-Distended Extremities: No edema, No Calf Tenderness Skin: No rashes, No breakdown Psych/Mental Status: Normal Affect, Appropriate Laboratory Results 04/06/20 16:50: WBC 8.1, RBC 3.16 L, Hgb 8.9 L, Hct 27.7 L, MCV 87.7, MCH 28.2, MCHC 32.1, RDW Std Deviation 45.4 H, RDW Coeff of [place] 14.1, Plt Count 239, MPV 12.1 H, Immature Gran % (Auto) 0.600, Neut % (Auto) 77.4 H, Lymph % (Auto) 12.1 L, [place] % (Auto) 6.9, Eos % (Auto) 2.3, Baso % (Auto) 0.7, Absolute Neuts (auto) 6.3, Absolute Lymphs (auto) 0.98, Nucleated RBC % 0 04/06/20 16:50: Sodium 140, Potassium 4.1, Chloride 113 H, Carbon Dioxide 10.0 L, Anion Gap 17 H, BUN 114 H*, Creatinine 10.80 H*, Estim Creat Clear Calc 4.65, Est GFR (MDRD) Af Amer 5 L, Est GFR (MDRD) Non-Af 4 L, BUN/Creatinine Ratio 10.6, Glucose 132 H, Calcium 8.4 L, Total Bilirubin 0.30, AST 14 L, ALT 16, Alkaline Phosphatase 125 H, Troponin I < 0.015, Total Protein 7.1, Albumin 3.6, Globulin 3.5, Albumin/Globulin Ratio 1.0, Lipase 677 H 04/06/20 16:50: B-Natriuretic Peptide 7.8 04/06/20 16:50: Magnesium 1.9, Iron 171 H, TIBC 204 L, Iron Saturation 83.8 H 04/06/20 16:50: Phosphorus 9.2 H* 04/06/20 17:25: Blood Type O NEGATIVE, Antibody Screen NEGATIVE 04/06/20 19:58: Urine Color Yellow, Urine Clarity Sl. Cloudy, Urine pH 5.0, Ur Specific [place] 1.010, Urine Protein 30 H, Urine Glucose (UA) Normal, Urine Ketones Negative, Urine Occult Blood 25 H, Urine Nitrite Negative, Urine Bilirubin Negative, Urine Urobilinogen Normal, Ur Leukocyte Esterase 500 H, Urine RBC 0-5 SEEN, Urine WBC 25-50 SEEN, Ur Squamous Epith Cells 0-5 SEEN, Urine Bacteria RARE, Urine Mucus 0 SEEN 04/06/20 19:58: Urine Creatinine 63.00 04/06/20 19:58: Ur Random Sodium 45 04/06/20 20:20: Troponin I < 0.015 04/06/20 22:25: Troponin I 0.015 04/07/20 05:14: WBC 8.9, RBC 2.70 L, Hgb 7.5 L, Hct 24.0 L, MCV 88.9, MCH 27.8, MCHC 31.3 L, RDW Std Deviation 46.1 H, RDW Coeff of [place] 14.4, Plt Count 219, MPV 11.6, Immature Gran % (Auto) 0.300, Neut % (Auto) 67.9, Lymph % (Auto) 18.4 L, [place] % (Auto) 8.8, Eos % (Auto) 3.8, Baso % (Auto) 0.8, Absolute Neuts (auto) 6.0, Absolute Lymphs (auto) 1.64, Nucleated RBC % 0 04/07/20 05:14: Sodium 142, Potassium 3.9, Chloride 116 H, Carbon Dioxide 9.0 L*, Anion Gap 17 H, BUN 111 H*, Creatinine 9.81 H*, Estim Creat Clear Calc 5.12, Est GFR (MDRD) Af Amer 5 L, Est GFR (MDRD) Non-Af 4 L, BUN/Creatinine Ratio 11.3, Glucose 102, Calcium 8.0 L, Phosphorus 8.7 H, Total Bilirubin 0.30, AST 13 L, ALT 16, Alkaline Phosphatase 105, Total Protein 6.3 L, Albumin 3.2, Globulin 3.1, Albumin/Globulin Ratio 1.0 04/07/20 11:35: COVID-19 (TO) Pending Current Medications Amlodipine Besylate (Norvasc) 10 mg PO QHS [facility] Last Admin: 04/06/20 21:13 Dose: 10 mg Documented by: Calcium Carbonate (Tums) 500 mg PO Q6H PRN PRN PRN Reason: HEARTBURN Heparin Sodium (Porcine) (Heparin Na) 5,000 unit SC Q8 [facility] Last Admin: 04/07/20 05:13 Dose: 5,000 unit Documented by: Hydralazine HCl (Apresoline Iv) 5 mg IV Q6H PRN PRN PRN Reason: BLOOD PRESSURE Sodium Chloride () 250 mls @ 15 mls/hr IV .[id number] PRN PRN Reason: Saline Flush Sodium Chloride () 250 mls @ 15 mls/hr IV .[id number] PRN PRN Reason: Additional IVPB Infusion Sodium Bicarbonate 150 meq/ (Dextrose) 1,150 mls @ 100 mls/hr IV .[id number] [facility] Last Admin: 04/07/20 12:18 Dose: 100 mls/hr Documented by: Ondansetron HCl (Zofran) 4 mg IV Q8H PRN PRN PRN Reason: NAUSEA/VOMITING Last Admin: 04/06/20 23:39 Dose: 4 mg Documented by: Pantoprazole Sodium (Protonix) 40 mg PO X1 ONE Stop: 04/07/20 12:24 Pantoprazole Sodium (Protonix) 40 mg PO DAILY [facility] Sodium Chloride () 10 - 40 ml IV UD PRN PRN Reason: SALINE FLUSH Last Admin: 04/07/20 05:08 Dose: 30 ml Documented by: STROKE Vital Signs/Narrative: Vital Signs Temp Pulse Resp BP Pulse Ox 04/07/20 11:35 36.7 C 67 18 137/55 H 99 04/07/20 11:00 65 Medical Necessity - Tobacco Use Smoking Status: Never smoker Tobacco Use: Non-smoker Assessment/Plan All Active Problems Acute kidney injury superimposed on CKD (Acute) ESRD (end stage renal disease) on dialysis (Acute) 1. PEARL on CKD Worsening DW Dr. Keene, plan for hemodialysis consult general surgery for catheter placement. 2. anemia of CD check studies hold on TF unless Hg less than 7 3. HTN: continue amlodipine 4. VTE prophylaxis: SQ heparin. Inpatient E&M: 11869 Subs Hosp L2
[2020-04-07 12:44] LABS: Probe Check PASS; Specimen Processing Control PASS
--- NOTE | 2020-04-07 13:32 | CASEMGMT ---
SW completed Healthcare Power of Hack Driver and Healthcare Living Will with patient. Copies were made and given to patient along with originals. A copy of each was also placed in patient's chart. Ursula YIN
--- NOTE | 2020-04-07 14:39 | DCINST_ITS ---
Discharge Diet: Renal Diet Discharge Activity: May Not Shower Lifting Restrictions: 10 pounds Call your doctor if you observe: Fever of 101 or Higher Suture Line Care: Avoid Pulling/Pushing, Avoid Pinching/Bending Additional Instructions: Please keep the dialysis catheter site clean and dry. The dialysis center nursing will assist with routine dressing changes. Allergies/Adverse Reactions: Allergies adhesive tape Allergy (Verified 04/06/20 16:14) Rash amoxicillin [From Augmentin] Allergy (Verified 04/06/20 16:14) Swelling cephalexin [From Keflex] Allergy (Verified 04/06/20 16:14) Swelling clavulanic acid [From Augmentin] Allergy (Verified 04/06/20 16:14) Swelling latex Allergy (Verified 04/06/20 16:14) Rash Penicillins [PCN] Allergy (Verified 04/06/20 16:14) Swelling sulfamethoxazole [From Bactrim] Allergy (Verified 04/06/20 16:14) rash,swellling, itching trimethoprim [From Bactrim] Allergy (Verified 04/06/20 16:14) rash,swellling, itching Medications to take at Discharge Amlodipine [Norvasc] 10 mg PO DAILY 04/19/18 Sodium Bicarbonate 1,300 mg PO BID 09/20/19 Primary Care Physician: Jewell Bowens DO [Primary Care Provider] - Test Results: Test results from this visit will be discussed in further detail at your follow- up appointment, if applicable. Please Follow Up With: Kenney Ch MD - [phone] When: Office appointment when recommended by Dr. Keene
[2020-04-07] MEDS: Pantoprazole Sodium 40 MG Tablet PO (14:49)
[2020-04-07] MEDS: Bupivacaine Mpf 0.5% 30 ML VIAL (15:10)
[2020-04-07] MEDS: Heparin 10,000 UNITS/10 ML Vial 10000 UNITS (15:25)
--- NOTE | 2020-04-07 15:33 | OP.PCM_ITS ---
Problem List (1) Acute kidney injury superimposed on CKD Status: Acute Report of Operation Date of Procedure: 04/07/20 Pre-Operative Diagnosis: Acute and chronic renal insufficiency stage V Post-Operative Diagnosis: Same Surgery/Procedure Performed:: Right internal jugular 19 cm pre-curved palindrome hemodialysis catheter placement. Reference #[id number]. Lot #[id number]. Expiry date 07/09/2024 Description of Surgical Findings:: Timeout and informed consent was obtained. 70-year-old female was taken to the operating place upon the table. She underwent monitored anesthesia care. Clindamycin 900 mg are given intravenously preprocedure. The right neck and chest were sterilely prepped and draped. Ultrasound was used to identify the right internal jugular vein. Under ultrasound guidance 1% lidocaine mixed 50-50 with 0.5% Marcaine was used as a local anesthetic. A total of 19 cc was used. Local was instilled and a micropuncture needle was used to gain access to the right internal jugular vein followed by 7 J-wire. This was exchanged out for a micropuncture sheath and an 035 J-wire. Local was instilled down upon the right chest wall. An exit site was selected. Small incision was created. The pre- curved tubing was tunneled from the chest to the neck site. Serial dilatation was performed over the wire with fluoroscopic control. The sheath dilator was inserted. The wire and dilator were removed. The catheter advanced through the sheath. The sheath was split. The catheter was positioned at the SVC atrial junction in a nice curvilinear fashion. It was secured to skin with 3-0 nylon. The neck site was closed interrupted 5-0 Vicryl subdermal stitch. Steri-Strip Telfa OpSite dressing applied. Silver impregnated dressing was applied to the catheter exit site. The catheter aspirated easily it was flushed with 2 cc per channel saline and then 2 cc per channel 1 to 1000 unit heparin. She was taken to the recovery area in satisfactory addition without apparent complication. Stat portable chest x-ray is pending. Specimens none. Drains none. Blood loss minimal. Kenney Ch M.D., F.A.C.S. Type of Anesthesia:: Local MAC Anesthesiologist: Yariel Chapman
--- NOTE | 2020-04-07 15:50 | RAD_ITS ---
STUDY: X-RAY CHEST REASON FOR EXAM: Female, 70 years old. Post op hemodialysis catheter TECHNIQUE: Single AP portable upright view of the chest. COMPARISON: Portable AP upright chest x-ray April 06, 2020. FINDINGS: Tunneled right chest wall hemodialysis catheter is now present, its tip in the superior vena cava. No pneumothorax. The lungs are clear and moderately expanded. There is no demonstrated pleural abnormality. Normal size heart. Normal mediastinum and mame. Normal visualized pulmonary arteries. Normal visualized aortic arch and descending thoracic aorta. Normal visualized thoracic spine. Normal visualized ribs, clavicles, and shoulders. There is no demonstrated abnormality of the visualized soft tissue structures of the upper abdomen. RAD/CXR for Line Placement IMPRESSION: Tunneled right chest wall hemodialysis catheter now in place. No pneumothorax. No acute infiltrate or CHF. Electronically Signed: Elmer Alanis MD at 16:23 EDT , Service support ,
[2020-04-07] MEDS: HYDROcodone Bitartrate/Apap 5/325 Tablet PO (19:49)
[2020-04-07] MEDS: amLODIPine 10 MG Tablet PO (22:00)
[2020-04-07] MEDS: Ondansetron 4 MG/2 ML Vial IV (23:29)
[2020-04-08] VITALS (15 sets, daily range): BP systolic 123–162; BP diastolic 60–102; PULSE 39–86; RESP 16–22; TEMP 2.7–36.9; O2SAT 95–98
[2020-04-08] MEDS: Heparin Injection (Vial) 5,000 UNIT/ML VIAL 5000 UNIT SC ×3 (05:09→22:05)
--- NOTE | 2020-04-08 06:00 | PN.SURG_ITS ---
Patient Problems: Active and Suspected Problems Acute kidney injury superimposed on CKD (Acute) ESRD (end stage renal disease) on dialysis (Acute) Subjective: Pt noted mild soreness of catheter last night easily resolved with oral med No current complaint - Physical Exam Vitals/I&O's: Vital Signs Temp Pulse Resp BP Pulse Ox 97.9 F 70 18 136/71 H 98 04/08/20 04:00 04/08/20 04:00 04/08/20 04:00 04/08/20 04:00 04/08/20 04:00 Oxygen Delivery Method Room Air Weight: 180 lb 1.883 oz Body Mass Index (BMI) 28.3 Intake and Output for Last 24 Hours 04/06/20 04/07/20 04/08/20 23:59 23:59 23:59 Intake Total 750 / 750 4025.58 / 4025.58 200 / 200 Output Total 300 / 300 2900 / 2900 600 / 600 Balance 450 / 450 1125.58 / 1125.58 -400 / -400 Lungs: - - Right IJ catheter in place, mininmal induration, no bleeding Laboratory Results 04/07/20 05:14: Sodium 142, Potassium 3.9, Chloride 116 H, Carbon Dioxide 9.0 L* , Anion Gap 17 H, BUN 111 H*, Creatinine 9.81 H*, Estim Creat Clear Calc 5.12, Est GFR (MDRD) Af Amer 5 L, Est GFR (MDRD) Non-Af 4 L, BUN/Creatinine Ratio 11.3, Glucose 102, Calcium 8.0 L, Phosphorus 8.7 H, Total Bilirubin 0.30, AST 13 L, ALT 16, Alkaline Phosphatase 105, Total Protein 6.3 L, Albumin 3.2, Globulin 3.1, Albumin/Globulin Ratio 1.0 04/07/20 11:35: COVID-19 (TO) Negative Current Medications Acetaminophen (Tylenol) 650 mg PO Q6H PRN PRN PRN Reason: Pain Score 1-10/10 Hydrocodone Bitart/Acetaminophen ([place] 5mg-325mg) 1 tablet PO Q6H PRN PRN PRN Reason: Pain Score 1-10/10 Last Admin: 04/07/20 19:49 Dose: 1 tablet Documented by: Amlodipine Besylate (Norvasc) 10 mg PO QHS [facility]CLUD[facility] Last Admin: 04/07/20 22:00 Dose: 10 mg Documented by: Calcium Carbonate (Tums) 500 mg PO Q6H PRN PRN PRN Reason: HEARTBURN Heparin Sodium (Porcine) (Heparin Na) 5,000 unit SC Q8 [facility]CLUDES [facility] Last Admin: 04/08/20 05:09 Dose: 5,000 unit Documented by: Hydralazine HCl (Apresoline Iv) 5 mg IV Q6H PRN PRN PRN Reason: BLOOD PRESSURE Sodium Chloride () 250 mls @ 15 mls/hr IV .[id number] PRN PRN Reason: Saline Flush Sodium Chloride () 250 mls @ 15 mls/hr IV .[id number] PRN PRN Reason: Additional IVPB Infusion Sodium Bicarbonate 150 meq/ (Dextrose) 1,150 mls @ 100 mls/hr IV .[id number] COUNT INCLUDES THE [facility] Last Admin: 04/07/20 23:59 Dose: 100 mls/hr Documented by: Ondansetron HCl (Zofran) 4 mg IV Q8H PRN PRN PRN Reason: NAUSEA/VOMITING Last Admin: 04/07/20 23:29 Dose: 4 mg Documented by: Pantoprazole Sodium (Protonix) 40 mg PO DAILY COUNT [facility]CLUDES THE [facility] Sodium Chloride () 10 - 40 ml IV UD PRN PRN Reason: SALINE FLUSH Last Admin: 04/07/20 23:30 Dose: 10 ml Documented by: Medical Necessity - Tobacco Use Smoking Status: Never smoker Tobacco Use: Non-smoker Assessment/Plan All Active Problems Acute kidney injury superimposed on CKD (Acute) ESRD (end stage renal disease) on dialysis (Acute) CXR good position right IJ catheter, ready for utilization Will check vein mapping for possible future fistula pending needs
[2020-04-08 06:04] LABS: Absolute Lymphocyte Count 1.32 X10^3/uL (0.83-4.51); Absolute Neutrophil Count 4.6 X10^3/uL (2.0-7.7); Basophil# 0.04 X10^3/uL; Basophil% 0.6 % (0-1); Eosinophil# 0.44 X10^3/uL; Eosinophils% 6.3 % (0-5); Hematocrit 22.3 % (37-47); Lymphocyte # 1.32 X10^3/ul (4.0); Lymphocyte % 18.8 % (19-41); Mean Corp Hgb Conc 31.4 g/dL (32-36); Mean Corpuscular Hgb 27.3 pg (27.0-32.0); Mean Corpuscular Volume 87.1 fL (81-99); Mean Platelet Vol. 11.9 fl (6.2-12.0); Monocyte# 0.56 X10^3/uL; NRBC Flagged by Analyzer 0 % (0-5); Neutrophil # 4.63 X10^3/uL (2.7-7.7); Neutrophil % 65.9 % (47-70); Platelet Count 198 K/mm3 (150-450); RBC Distribution Width SD 44.4 fl (35.1-43.9); Red Blood Count 2.56 M/mm3 (4.2-5.4)
--- NOTE | 2020-04-08 06:04 | VDUE_ITS ---
Reason For Study: vein mapping for dialysis Right Arm Left Arm Right cephalic vein is compressible. Cephalic Vein is too small to assess. Right Cephalic Vein at the shoulder Left basilic vein is compressible. measures .19 X .2 cm. Basilic vein at bicep measures .35 x .39 cm. Right Cephalic Vein mid bicep measures .21 Basilic vein above antecub measures .42 x .43 X .21 cm. cm. Right Cephalic Vein above antecub Basilic vein below antecub measures .29 x .29 measures .14 X .15 cm. cm. Right Cephalic Vein below antecub Basilic vein in the forearm measures .21 measures .24 X .26 cm. x .26 cm. Right Cephalic Vein in the forearm Basilic vein at the wrist measures .22 x .23 measures .18 X .19 cm. cm. Right Cephalic Vein at the wrist measures .18 Brachial Art .36 x .37 cm. X .19 cm. Brachial Art 67.7 cm/s. Right basilic vein is compressible. Radial Art .19 x .2 cm. Right Basilic Vein mid bicep measures .38 Radial Art 83.3 cm/s. X .35 cm. Right Basilic Vein above antecub measures .31 Images are mislabelled for Right and Left X .33 cm. side. Right Basilic Vein below antecub measures .21 X .23 cm. Right Basilic Vein in the forearm measures .16 X .22 cm. Right Basilic Vein at the wrist measures .16 X .15 cm. Brachial Art .39 x .4 cm. Brachial Art 78.5 cm/s. Radial Art .18 x .22 cm. Radial Art 87.2 cm/s. Interpretation Summary Right cephalic vein small Right upper arm basilic vein patent/compressible Left cephalic vein diminutive Levt upper arm basilic vein patent/compressible Bilateral radial arteries small Bilateral brachial arteries normal diameters Ordering Physician: Kenney Ch Performed By: Chago Leonard T ?
[2020-04-08 06:35] LABS: Anion Gap 14 (5-15); BUN 102 mg/dL (7-18); BUN/Creat Ratio 11.1 RATIO (10-20); Calcium,Total 7.6 mg/dL (8.5-10.1); Chloride 113 mmol/L (98-107); Creatinine, Serum 9.17 mg/dL (0.55-1.02); EST Glomerular Filtration Rate 5 mL/min (>60); Est Glom Filt Rate - Afr Amer 5 mL/min (>60); Estimated Creatinine Clearance 5.47 ml/min; Glucose 108 mg/dL (74-106); Potassium 3.3 mmol/L (3.5-5.1); Sodium Level 142 mmol/L (136-145)
--- NOTE | 2020-04-08 07:45 | CASEMGMT ---
Addendum entered by Katia Granados 04/08/20 15:30: Pt's daughter updated on all at this time as well after ok from pt, voices understanding. Daughter voices no further questions/concerns/needs at this time. Ruby WILCOX CM Addendum entered by Katia Granados 04/08/20 15:20: Call from Merlene at [facility] and she states that pt is medically/financially clear at this time and is set up for a MWF [id number] chair time at the [facility] at this time. She states that she will fax a schedule letter to this [facility] to give to pt. She states that [facility] will be expecting her on Sunday04/12/2020 for her 1st OP treatment. Schedule letter to pt at this time and pt updated on all at this time, voices understanding. Pt voices no further questions/concerns/needs at this time. Ruby WILCOX CM Addendum entered by Katia Granados 04/08/20 11:36: Part of hep panel resulted and faxed to [facility] at this time. Ruby WILCOX CM Addendum entered by Katia Granados 04/08/20 10:01: Per Atul at [facility], pt is financially clear but we are awaiting medical clearance as hep panel drawn this am and results will need to be sent once obtained. Ruby WILCOX CM Original Note: COVID testing, tunnel cath op notes and f/u CXR results, and copy of insurance cards faxed to [facility] at this time. Hep panel not drawn yet as pt has not had 1st dialysis treatment. Will send as soon as available. Ruby WILCOX CM
[2020-04-08] MEDS: HYDROcodone Bitartrate/Apap 5/325 Tablet PO (08:09)
[2020-04-08] MEDS: Ondansetron 4 MG/2 ML Vial IV (08:44)
[2020-04-08] MEDS: 0.9% Saline Lock 10 ML Syringe IV ×2 (08:44→14:46)
--- NOTE | 2020-04-08 11:00 | PCM.PN.REN ---
Patient Problems: Active and Suspected Problems Acute kidney injury superimposed on CKD (Acute) ESRD (end stage renal disease) on dialysis (Acute) Subjective: no new complaints had some nausea with HD earlier - Physical Exam Vitals/I&O's: Vital Signs Temp Pulse Resp BP Pulse Ox 98.2 F 67 18 128/67 H 95 04/08/20 09:15 04/08/20 09:15 04/08/20 09:15 04/08/20 09:15 04/08/20 09:15 Oxygen Delivery Method Room Air Weight: 81.7 kg Body Mass Index (BMI) 28.3 Intake and Output for Last 24 Hours 04/06/20 04/07/20 04/08/20 23:59 23:59 23:59 Intake Total 750 / 750 4025.58 / 4025.58 1195 / 1195 Output Total 300 / 300 2900 / 2900 600 / 600 Balance 450 / 450 1125.58 / 1125.58 595 / 595 General: Alert, Oriented x3, Cooperative HEENT: Atraumatic, PERRLA, EOMI, Normocephalic Neck: Supple, No JVD, Negative Carotid Bruits Lungs: Clear to auscultation, Normal air movement Cardiovascular: Regular rate, No murmurs Abdomen: Bowel Sounds Present, Soft, Non Tender Extremities: No edema, Capillary Refill Less than 3 Seconds Skin: No rashes, No breakdown Musculoskeletal: No Tenderness to Palpation of Joints or Extremities Neurological: Cranial nerves II-XII grossly intact Psych/Mental Status: Normal Affect, Appropriate Laboratory Results 04/07/20 11:35: COVID-19 (TO) Negative 04/08/20 05:30: WBC 7.0, RBC 2.56 L, Hgb 7.0 L, Hct 22.3 L, MCV 87.1, MCH 27.3, MCHC 31.4 L, RDW Std Deviation 44.4 H, RDW Coeff of [place] 14.0, Plt Count 198, MPV 11.9, Immature Gran % (Auto) 0.400, Neut % (Auto) 65.9, Lymph % (Auto) 18.8 L, [place] % (Auto) 8.0, Eos % (Auto) 6.3 H, Baso % (Auto) 0.6, Absolute Neuts (auto) 4.6, Absolute Lymphs (auto) 1.32, Nucleated RBC % 0 04/08/20 05:30: Sodium 142, Potassium 3.3 L, Chloride 113 H, Carbon Dioxide 15.0 L, Anion Gap 14, BUN 102 H*, Creatinine 9.17 H*, Estim Creat Clear Calc 5.47, Est GFR (MDRD) Af Amer 5 L, Est GFR (MDRD) Non-Af 5 L, BUN/Creatinine Ratio 11.1, Glucose 108 H, Calcium 7.6 L 04/08/20 09:35: Hep B Core Total Ab Pending 04/08/20 09:35: Hep Bs Antigen Pending, Hep Bs Antibody Pending Current Medications Acetaminophen (Tylenol) 650 mg PO Q6H PRN PRN PRN Reason: Pain Score 1-10/10 Hydrocodone Bitart/Acetaminophen ([place] 5mg-325mg) 1 tablet PO Q6H PRN PRN PRN Reason: Pain Score 1-10/10 Last Admin: 04/08/20 08:09 Dose: 1 tablet Documented by: Amlodipine Besylate (Norvasc) 10 mg PO QHS [facility] Last Admin: 04/07/20 22:00 Dose: 10 mg Documented by: Calcium Carbonate (Tums) 500 mg PO Q6H PRN PRN PRN Reason: HEARTBURN Heparin Sodium (Porcine) (Heparin Na) 5,000 unit SC Q8 [facility] Last Admin: 04/08/20 05:09 Dose: 5,000 unit Documented by: Hydralazine HCl (Apresoline Iv) 5 mg IV Q6H PRN PRN PRN Reason: BLOOD PRESSURE Sodium Chloride () 250 mls @ 15 mls/hr IV .[id number] PRN PRN Reason: Saline Flush Sodium Chloride () 250 mls @ 15 mls/hr IV .[id number] PRN PRN Reason: Additional IVPB Infusion Sodium Bicarbonate 150 meq/ (Dextrose) 1,150 mls @ 100 mls/hr IV .[id number] [facility] Last Admin: 04/08/20 09:56 Dose: 100 mls/hr Documented by: Ondansetron HCl (Zofran) 4 mg IV Q8H PRN PRN PRN Reason: NAUSEA/VOMITING Last Admin: 04/08/20 08:44 Dose: 4 mg Documented by: Pantoprazole Sodium (Protonix) 40 mg PO DAILY [facility] Sodium Chloride () 10 - 40 ml IV UD PRN PRN Reason: SALINE FLUSH Last Admin: 04/08/20 08:44 Dose: 10 ml Documented by: Medical Necessity - Tobacco Use Smoking Status: Never smoker Tobacco Use: Non-smoker Assessment/Plan All Active Problems Acute kidney injury superimposed on CKD (Acute) ESRD (end stage renal disease) on dialysis (Acute) CKD stage IV/V Now progressed to end-stage renal disease. She was in the process of starting dialysis as outpatient anyway. No presented with severe acidosis, significant uremic symptoms. Has dyspnea with minimal exertion. seen on HD today HD tomorrow placement in progress louisa roblero
[2020-04-08] MEDS: Pantoprazole Sodium 40 MG Tablet PO (11:01)
[2020-04-08] MEDS: Heparin 10,000 UNITS/10 ML Vial IV (11:02)
[2020-04-08 11:11] LABS: Hepatitis B Surface Antibody Non-Reactive; Hepatitis B Surface Antigen Non-Reactive (Nonreactive)
--- NOTE | 2020-04-08 11:50 | DIALYSIS ---
HD x2 hours completed at 1040 on a 3K bath, first treatment, tolerated well, UF 0mL, blood flow started at 0834, pt vomited within 3 seconds, blood flow stopped, lines clamped, staff at bedside due to tele monitor changes, bradycardia, BP then obtained 174/99, dialysis held for moment to assess patient, pt stated she actually began feeling nauseous before being connected to dialysis machine while mask was on for central line dressing change and catheter access, pt states she's claustrophobic and mask added to her feeling overwhelmed starting dialysis today, after approx 5 mins tx resumed/started at 0840 due to feeling better after vomiting, floor nurse to give Zofran, pt also received a pain pill at 0810 with breakfast for discomfort at site of new dialysis catheter, patient tolerated treatment well otherwise, accessed via right chest tunneled dialysis catheter, worked well, next tx planned for tomorrow
--- NOTE | 2020-04-08 13:24 | PCM.PN.HOSP ---
<Yoan Allan - Last Filed: 04/08/20 13:24> Patient Problems: Active and Suspected Problems Acute kidney injury superimposed on CKD (Acute) ESRD (end stage renal disease) on dialysis (Acute) Reason for Visit: ESRD Subjective: Pt had some nausea when starting dialysis. at that time some bradycardia with vomiting and 2nd degree block on monitor. At time of interview pt undergoing dialysis with no complaints. Pt planning to continue with o/p dialysis in [place]. Pt no hx of prior dialysis. Vitals/I&O's: Vital Signs Temp Pulse Resp BP Pulse Ox 98.0 F 69 16 129/65 H 97 04/08/20 13:00 04/08/20 13:00 04/08/20 13:00 04/08/20 13:00 04/08/20 13:00 Oxygen Delivery Method Room Air Weight: 180 lb 1.883 oz Body Mass Index (BMI) 28.3 Intake and Output for Last 24 Hours 04/06/20 04/07/20 04/08/20 23:59 23:59 23:59 Intake Total 750 / 750 4025.58 / 4025.58 1508.33 / 1508.33 Output Total 300 / 300 2900 / 2900 1200 / 1200 Balance 450 / 450 1125.58 / 1125.58 308.33 / 308.33 General: Alert, Oriented x3, Cooperative HEENT: Atraumatic, PERRLA, EOMI, Normocephalic Neck: Supple, No JVD, Negative Carotid Bruits Lungs: Clear to auscultation, Normal air movement Cardiovascular: Regular rate, No murmurs Abdomen: Bowel Sounds Present, Soft, Non Tender Extremities: No edema, Capillary Refill Less than 3 Seconds Skin: No rashes, No breakdown Musculoskeletal: No Tenderness to Palpation of Joints or Extremities Neurological: Cranial nerves II-XII grossly intact Psych/Mental Status: Normal Affect, Appropriate, Alert and oriented to time, place, person, mood and affect Laboratory Results 04/06/20 17:25: Crossmatch See Detail 04/08/20 05:30: WBC 7.0, RBC 2.56 L, Hgb 7.0 L, Hct 22.3 L, MCV 87.1, MCH 27.3, MCHC 31.4 L, RDW Std Deviation 44.4 H, RDW Coeff of [place] 14.0, Plt Count 198, MPV 11.9, Immature Gran % (Auto) 0.400, Neut % (Auto) 65.9, Lymph % (Auto) 18.8 L, [place] % (Auto) 8.0, Eos % (Auto) 6.3 H, Baso % (Auto) 0.6, Absolute Neuts (auto) 4.6, Absolute Lymphs (auto) 1.32, Nucleated RBC % 0 04/08/20 05:30: Sodium 142, Potassium 3.3 L, Chloride 113 H, Carbon Dioxide 15.0 L, Anion Gap 14, BUN 102 H*, Creatinine 9.17 H*, Estim Creat Clear Calc 5.47, Est GFR (MDRD) Af Amer 5 L, Est GFR (MDRD) Non-Af 5 L, BUN/Creatinine Ratio 11.1, Glucose 108 H, Calcium 7.6 L 04/08/20 09:35: Hep B Core Total Ab Pending 04/08/20 09:35: Hep Bs Antigen Non-Reactive, Hep Bs Antibody Non-Reactive Current Medications Acetaminophen (Tylenol) 650 mg PO Q6H PRN PRN PRN Reason: Pain Score 1-10/10 Hydrocodone Bitart/Acetaminophen ([place] 5mg-325mg) 1 tablet PO Q6H PRN PRN PRN Reason: Pain Score 1-10/10 Last Admin: 04/08/20 08:09 Dose: 1 tablet Documented by: Amlodipine Besylate (Norvasc) 10 mg PO QHS [facility] Last Admin: 04/07/20 22:00 Dose: 10 mg Documented by: Calcium Carbonate (Tums) 500 mg PO Q6H PRN PRN PRN Reason: HEARTBURN Heparin Sodium (Porcine) (Heparin Na) 5,000 unit SC Q8 [facility] Last Admin: 04/08/20 12:49 Dose: 5,000 unit Documented by: Hydralazine HCl (Apresoline Iv) 5 mg IV Q6H PRN PRN PRN Reason: BLOOD PRESSURE Sodium Chloride () 250 mls @ 15 mls/hr IV .[id number] PRN PRN Reason: Saline Flush Sodium Chloride () 250 mls @ 15 mls/hr IV .[id number] PRN PRN Reason: Additional IVPB Infusion Ondansetron HCl (Zofran) 4 mg IV Q8H PRN PRN PRN Reason: NAUSEA/VOMITING Last Admin: 04/08/20 08:44 Dose: 4 mg Documented by: Pantoprazole Sodium (Protonix) 40 mg PO DAILY [facility] Last Admin: 04/08/20 11:01 Dose: 40 mg Documented by: Sodium Chloride () 10 - 40 ml IV UD PRN PRN Reason: SALINE FLUSH Last Admin: 04/08/20 08:44 Dose: 10 ml Documented by: STROKE Vital Signs/Narrative: Vital Signs Temp Pulse Resp BP Pulse Ox 04/08/20 13:00 98.0 F 69 16 129/65 H 97 04/08/20 10:45 36.9 F L 68 22 H 123/60 H Medical Necessity - Tobacco Use Smoking Status: Never smoker Tobacco Use: Non-smoker Assessment/Plan All Active Problems Acute kidney injury superimposed on CKD (Acute) ESRD (end stage renal disease) on dialysis (Acute) 1. ESRD - diaylsis started today. right IJ dialysis cath placed yesterday. Dr. Keene following. Hep panel pending. Placed on bicarb for acidosis. Gap improved. Tums for hypocalcemia. Renal US with renal atrophy and 3 left renal cysts greatest 3 cm. 2. Bradycardia - one episode with 2nd degree block but occurred during nausea vomiting and has not recurred. Maintain on tele and monitor overnight no changes at this time 3. Anemia of chronic dz, ESRD - transfuse 1 unit PRBC. Plan to start Epo as o/p. No iron def per recent studies. 4. HTN - stable DVT ppx: heparin DC planning: dc home once o/p dialysis arranged. This patient was seen by Yoan Allan PA-C under the supervision of Doctor Adair. <Bernardino Borrero - Last Filed: 04/08/20 14:52> Subjective: Nausea when initiating HD today. Vitals/I&O's: Vital Signs Temp Pulse Resp BP Pulse Ox 36.6 C 69 18 128/63 H 97 04/08/20 13:25 04/08/20 13:25 04/08/20 13:25 04/08/20 13:25 04/08/20 13:25 Oxygen Delivery Method Room Air Weight: 81.7 kg Body Mass Index (BMI) 28.3 Intake and Output for Last 24 Hours 04/06/20 04/07/20 04/08/20 23:59 23:59 23:59 Intake Total 750 / 750 4025.58 / 4025.58 1508.33 / 1508.33 Output Total 300 / 300 2900 / 2900 1200 / 1200 Balance 450 / 450 1125.58 / 1125.58 308.33 / 308.33 General: Alert, Cooperative, - - seen on HD HEENT: Atraumatic, Normocephalic Lungs: Clear to auscultation, Normal air movement, No rhonchi, No wheeze Cardiovascular: Regular rate, No murmurs Abdomen: Bowel Sounds Present, Soft, Non Tender Extremities: No edema, No Calf Tenderness Skin: No rashes, No breakdown Psych/Mental Status: Normal Affect, Appropriate Laboratory Results 04/06/20 17:25: Crossmatch See Detail 04/08/20 05:30: WBC 7.0, RBC 2.56 L, Hgb 7.0 L, Hct 22.3 L, MCV 87.1, MCH 27.3, MCHC 31.4 L, RDW Std Deviation 44.4 H, RDW Coeff of [place] 14.0, Plt Count 198, MPV 11.9, Immature Gran % (Auto) 0.400, Neut % (Auto) 65.9, Lymph % (Auto) 18.8 L, [place] % (Auto) 8.0, Eos % (Auto) 6.3 H, Baso % (Auto) 0.6, Absolute Neuts (auto) 4.6, Absolute Lymphs (auto) 1.32, Nucleated RBC % 0 04/08/20 05:30: Sodium 142, Potassium 3.3 L, Chloride 113 H, Carbon Dioxide 15.0 L, Anion Gap 14, BUN 102 H*, Creatinine 9.17 H*, Estim Creat Clear Calc 5.47, Est GFR (MDRD) Af Amer 5 L, Est GFR (MDRD) Non-Af 5 L, BUN/Creatinine Ratio 11.1, Glucose 108 H, Calcium 7.6 L 04/08/20 09:35: Hep B Core Total Ab Pending 04/08/20 09:35: Hep Bs Antigen Non-Reactive, Hep Bs Antibody Non-Reactive Current Medications Acetaminophen (Tylenol) 650 mg PO Q6H PRN PRN PRN Reason: Pain Score 1-10/10 Last Admin: 04/08/20 13:28 Dose: 650 mg Documented by: Hydrocodone Bitart/Acetaminophen ([place] 5mg-325mg) 1 tablet PO Q6H PRN PRN PRN Reason: Pain Score 1-10/10 Last Admin: 04/08/20 08:09 Dose: 1 tablet Documented by: Amlodipine Besylate (Norvasc) 10 mg PO QHS [facility] Last Admin: 04/07/20 22:00 Dose: 10 mg Documented by: Calcium Carbonate (Tums) 500 mg PO Q6H PRN PRN PRN Reason: HEARTBURN Heparin Sodium (Porcine) (Heparin Na) 5,000 unit SC Q8 [facility] Last Admin: 04/08/20 12:49 Dose: 5,000 unit Documented by: Hydralazine HCl (Apresoline Iv) 5 mg IV Q6H PRN PRN PRN Reason: BLOOD PRESSURE Sodium Chloride () 250 mls @ 15 mls/hr IV .[id number] PRN PRN Reason: Saline Flush Sodium Chloride () 250 mls @ 15 mls/hr IV .[id number] PRN PRN Reason: Additional IVPB Infusion Ondansetron HCl (Zofran) 4 mg IV Q8H PRN PRN PRN Reason: NAUSEA/VOMITING Last Admin: 04/08/20 08:44 Dose: 4 mg Documented by: Pantoprazole Sodium (Protonix) 40 mg PO DAILY [facility] Last Admin: 04/08/20 11:01 Dose: 40 mg Documented by: Sodium Chloride () 10 - 40 ml IV UD PRN PRN Reason: SALINE FLUSH Last Admin: 04/08/20 08:44 Dose: 10 ml Documented by: STROKE Vital Signs/Narrative: Vital Signs Temp Pulse Resp BP Pulse Ox 04/08/20 13:25 36.6 C 69 18 128/63 H 97 04/08/20 13:00 36.7 C 69 16 129/65 H 97 04/08/20 10:45 2.7 C L 68 22 H 123/60 H Assessment/Plan Patient seen and examined independently. Data reviewed. I agree with the above note by the physician pharmacy technician assistant. 1. PEARL on CKD Worsening DW Dr. Keene, plan for hemodialysis consult general surgery for catheter placement. 1st HD on 04/08 tunnelled HD catheter placed on 04/07 2. anemia of CD check studies Hg 7. to receive 1 unit of RBCs 3. HTN: continue amlodipine 4. VTE prophylaxis: SQ heparin. Inpatient E&M: 85305 Subs Hosp L2
[2020-04-08] MEDS: Acetaminophen 325 MG Tablet 650 MG PO (13:28)
[2020-04-08] MEDS: proMETHazine 25 MG/ML Syringe 12.5 MG IV (14:45)
[2020-04-08] MEDS: Pramipexole Di-HCl 0.125 MG Tablet PO (16:28)
[2020-04-08] MEDS: amLODIPine 10 MG Tablet PO (22:05)
[2020-04-09] MEDS: Ondansetron 4 MG/2 ML Vial IV (02:30)
[2020-04-09] MEDS: 0.9% Saline Lock 10 ML Syringe IV (02:30)
[2020-04-09 02:59] VITALS: PULSE 62
[2020-04-09 03:00] VITALS: BP 124/77; PULSE 71; RESP 18; TEMP 36.8; O2SAT 94
[2020-04-09] MEDS: Heparin Injection (Vial) 5,000 UNIT/ML VIAL 5000 UNIT SC (05:24)
[2020-04-09 05:40] LABS: Absolute Lymphocyte Count 1.37 X10^3/uL (0.83-4.51); Basophil# 0.06 X10^3/uL; Basophil% 0.8 % (0-1); Eosinophil# 0.41 X10^3/uL; Eosinophils% 5.5 % (0-5); Hematocrit 26.4 % (37-47); Lymphocyte # 1.37 X10^3/ul (4.0); Lymphocyte % 18.4 % (19-41); Mean Corpuscular Hgb 28.2 pg (27.0-32.0); Mean Corpuscular Volume 84.6 fL (81-99); Mean Platelet Vol. 11.8 fl (6.2-12.0); Monocyte# 0.59 X10^3/uL; Monocyte% 7.9 % (0-10); NRBC Flagged by Analyzer 0 % (0-5); Neutrophil # 4.99 X10^3/uL (2.7-7.7); Neutrophil % 66.9 % (47-70); Platelet Count 184 K/mm3 (150-450); RBC Distribution Width SD 43.2 fl (35.1-43.9); Red Blood Count 3.12 M/mm3 (4.2-5.4); White Blood Count 7.5 K/mm3 (4.4-11.0)
[2020-04-09 05:45] LABS: Hemoglobin 8.8 g/dL (12.0-15.0)
[2020-04-09 05:46] LABS: Mean Corp Hgb Conc 33.3 g/dL (32-36)
[2020-04-09 05:57] LABS: Anion Gap 10 (5-15); BUN 63 mg/dL (7-18); BUN/Creat Ratio 9.1 RATIO (10-20); Calcium,Total 7.6 mg/dL (8.5-10.1); Chloride 105 mmol/L (98-107); Creatinine, Serum 6.89 mg/dL (0.55-1.02); EST Glomerular Filtration Rate 6 mL/min (>60); Est Glom Filt Rate - Afr Amer 8 mL/min (>60); Estimated Creatinine Clearance 7.28 ml/min; Glucose 106 mg/dL (74-106); Potassium 3.1 mmol/L (3.5-5.1); Sodium Level 141 mmol/L (136-145)
[2020-04-09 06:43] VITALS: PULSE 68
[2020-04-09 09:00] VITALS: BP 116/65; PULSE 65; RESP 18; TEMP 36.9; O2SAT 96
[2020-04-09 09:15] LABS: Magnesium 1.6 mg/dL (1.6-2.6); Phosphorus 6.6 mg/dL (2.5-4.9)
--- NOTE | 2020-04-09 10:18 | CASEMGMT ---
Addendum entered by Babak Moeller 04/09/20 15:37: Per phone conversation w/[facility], pt's dialysis schedule has now been changed to /Sun, chair time 1130. Clinical Shale Miner @ [facility] is Areli. Spoke w/Merlene @ [facility]. . Ext: [phone]. She states she was not aware of the schedule change and if a change is made, that the [facility] would be responsible for letting pt know of any changes. She was also made aware that pt has been discharged home. BRENDEN MARKS placed call to pt to confirm pt is aware of the schedule changes. Pt states Dr Keene did inform her before she left the hospital today that her dialysis schedule has been changed to //Sat, with chair time @ 1130. 1st dialysis treatment will be tomorrow, 04/10/20. Pt is aware she should arrive 15 min early. Merlene also stated at this time that pt has not been cleared financially and that an email has been sent to their CVO (Central Verification Office) re: financials. She states she is awaiting response and that she will continue to work on this today until financial clearance is obtained. Original Note: BRENDEN MARKS NOTE: Hep B Core Total Ab has been resulted and is negative. Results faxed to [facility] at this time. Per LUISITO Lane, he spoke w/Dr Keene who states pt is able to be discharged today after dialysis. BRENDEN MARKS to room to talk with pt at this time. Pt aware 1st OP dialysis treatment is scheduled for Thursday 04/12 @ 0640. Pt states she thinks her daughter has the schedule letter and requests for a copy of same. Copy made and given to pt at this time. She denies having any questions at this time. Pt made aware to ask for BRENDEN MARKS if she has any questions/concerns/needs. Pt voices understanding. Uriel MALIN RN, CM
--- NOTE | 2020-04-09 10:31 | DIALYSIS ---
HD X 2 HRS ON 4K BATH NO FLUID REMOVED -PT TOLERTED TREATMENT WELL. VITALS STABLE DURING TREATMENT. NO NAUSEA OR VOMITING. RIJ CATH WITH GOOD FLOWS. REPORT TO ANILA WILCOX
--- NOTE | 2020-04-09 10:38 | DCINST_ITS ---
- Discharge Diagnoses Current Active Problems: Current Active and Chronic Problems Acute kidney injury superimposed on CKD (Acute) ESRD (end stage renal disease) on dialysis (Acute) You will use the following diet at home:: Renal (restricted protein/sodium) Your food should be the consistency of: Regular Your liquids should be the consistency of: Regular/Thin Discharge Activity: Return to Normal Activity, May Not Shower Call your doctor if you observe: Fever of 101 or Higher Suture Line Care: Avoid Pulling/Pushing, Avoid Pinching/Bending Allergies/Adverse Reactions: Allergies adhesive tape Allergy (Verified 04/06/20 16:14) Rash amoxicillin [From Augmentin] Allergy (Verified 04/06/20 16:14) Swelling cephalexin [From Keflex] Allergy (Verified 04/06/20 16:14) Swelling clavulanic acid [From Augmentin] Allergy (Verified 04/06/20 16:14) Swelling latex Allergy (Verified 04/06/20 16:14) Rash Penicillins [PCN] Allergy (Verified 04/06/20 16:14) Swelling sulfamethoxazole [From Bactrim] Allergy (Verified 04/06/20 16:14) rash,swellling, itching trimethoprim [From Bactrim] Allergy (Verified 04/06/20 16:14) rash,swellling, itching Medications to take at Discharge Amlodipine [Norvasc] 10 mg PO DAILY 04/19/18 Ondansetron HCl [Zofran] 4 mg PO Q6H PRN PRN #20 tab 04/09/20 The following prescriptions were given: Ondansetron HCl [Zofran] 4 mg PO Q6H PRN PRN #20 tab PRN Reason: Nausea Transmission Status: Pending to [facility] Primary Care Physician: Jewell Bowens DO [Primary Care Provider] - Please follow up with your Primary Care Physician in: 1-2 weeks Test Results: Test results from this visit will be discussed in further detail at your follow- up appointment, if applicable. Please Follow Up With: Kenney Ch MD - [phone] When: Office appointment when recommended by Dr. Keene Please Follow Up With: Geronimo Keene MD When: as directed Proposed Discharge Date: 04/09/20
--- NOTE | 2020-04-09 11:00 | PHA.DC.MC ---
Pharmacy Service has performed discharge medication reconciliation and counseling for this patient. 1. ONDANSETRON 4MG PO Q6H PRN NAUSEA The patient's discharge medication list was reviewed for discrepancies and discrepancies were resolved. Home Medications Amlodipine [Norvasc] 10 mg PO DAILY 04/19/18 Ondansetron HCl [Zofran] 4 mg PO Q6H PRN PRN #20 tab 04/09/20 The patient was counseled on the following discharge medications and changes in medications for homegoing were reviewed. The Reason for Use, instructions for use, and potential side effects were reviewed for all new medications. The patient's questions regarding all of their medications were answered. The patient was able to verbally demonstrate an understanding of their discharge medications.
[2020-04-09] MEDS: Heparin 10,000 UNITS/10 ML Vial IV (11:19)
[2020-04-09] MEDS: Epoetin Alfa epbx 10,000 UNITS/ML 10000 UNIT IV (11:19)
[2020-04-09] MEDS: Pantoprazole Sodium 40 MG Tablet PO (11:20)
[2020-04-09 11:34] LABS: Hepatitis B Core Ab Total Negative (Negative)
--- NOTE | 2020-04-09 12:11 | PCM.PN.REN ---
Patient Problems: Active and Suspected Problems Acute kidney injury superimposed on CKD (Acute) ESRD (end stage renal disease) on dialysis (Acute) Subjective: no new complaints tolerated HD better - Physical Exam Vitals/I&O's: Vital Signs Temp Pulse Resp BP Pulse Ox 98.5 F 65 18 116/65 96 04/09/20 09:00 04/09/20 09:00 04/09/20 09:00 04/09/20 09:00 04/09/20 09:00 Oxygen Delivery Method Room Air Weight: 81.6 kg Body Mass Index (BMI) 28.3 Intake and Output for Last 24 Hours 04/07/20 04/08/20 04/09/20 23:59 23:59 23:59 Intake Total 4025.58 / 4025.58 2348.33 / 2348.33 120 / 120 Output Total 2900 / 2900 1200 / 1200 Balance 1125.58 / 1125.58 1148.33 / 1148.33 120 / 120 General: Alert, Oriented x3, Cooperative HEENT: Atraumatic, PERRLA, EOMI, Normocephalic Neck: Supple, No JVD, Negative Carotid Bruits Lungs: Clear to auscultation, Normal air movement Cardiovascular: Regular rate, No murmurs Abdomen: Bowel Sounds Present, Soft, Non Tender Extremities: No edema, Capillary Refill Less than 3 Seconds Skin: No rashes, No breakdown Musculoskeletal: No Tenderness to Palpation of Joints or Extremities Neurological: Cranial nerves II-XII grossly intact Psych/Mental Status: Normal Affect, Appropriate Laboratory Results 04/06/20 17:25: Crossmatch See Detail 04/08/20 09:35: Hep B Core Total Ab Negative 04/09/20 05:25: WBC 7.5, RBC 3.12 L, Hgb 8.8 L, Hct 26.4 L, MCV 84.6, MCH 28.2, MCHC 33.3 D, RDW Std Deviation 43.2, RDW Coeff of [place] 14.0, Plt Count 184, MPV 11.8, Immature Gran % (Auto) 0.500, Neut % (Auto) 66.9, Lymph % (Auto) 18.4 L, R[place] % (Auto) 7.9, Eos % (Auto) 5.5 H, Baso % (Auto) 0.8, Absolute Neuts (auto) 5.0, Absolute Lymphs (auto) 1.37, Nucleated RBC % 0 04/09/20 05:25: Sodium 141, Potassium 3.1 L, Chloride 105, Carbon Dioxide 26.0, Anion Gap 10, BUN 63 H, Creatinine 6.89 H, Estim Creat Clear Calc 7.28, Est GFR (MDRD) Af Amer 8 L, Est GFR (MDRD) Non-Af 6 L, BUN/Creatinine Ratio 9.1 L, Glucose 106, Calcium 7.6 L 04/09/20 05:25: Phosphorus 6.6 H, Magnesium 1.6 Current Medications Acetaminophen (Tylenol) 650 mg PO Q6H PRN PRN PRN Reason: Pain Score 1-1010 Last Admin: 04/08/20 13:28 Dose: 650 mg Documented by: Hydrocodone Bitart/Acetaminophen (Scott 5mg-325mg) 1 tablet PO Q6H PRN PRN PRN Reason: Pain Score 1-10/10 Last Admin: 04/08/20 08:09 Dose: 1 tablet Documented by: Amlodipine Besylate (Norvasc) 10 mg PO QHS [facility] Last Admin: 04/08/20 22:05 Dose: 10 mg Documented by: Calcium Carbonate (Tums) 500 mg PO Q6H PRN PRN PRN Reason: HEARTBURN Heparin Sodium (Porcine) (Heparin Na) 5,000 unit SC Q8 [facility] Last Admin: 04/09/20 05:24 Dose: 5,000 unit Documented by: Hydralazine HCl (Apresoline Iv) 5 mg IV Q6H PRN PRN PRN Reason: BLOOD PRESSURE Sodium Chloride () 250 mls @ 15 mls/hr IV .[id number] PRN PRN Reason: Saline Flush Sodium Chloride () 250 mls @ 15 mls/hr IV .[id number] PRN PRN Reason: Additional IVPB Infusion Ondansetron HCl (Zofran) 4 mg IV Q8H PRN PRN PRN Reason: NAUSEA/VOMITING Last Admin: 04/09/20 02:30 Dose: 4 mg Documented by: Pantoprazole Sodium (Protonix) 40 mg PO DAILY [facility] Last Admin: 04/09/20 11:20 Dose: 40 mg Documented by: Promethazine HCl (Phenergan) 12.5 mg IV Q6H PRN PRN PRN Reason: NAUSEA/VOMITING Last Admin: 04/08/20 14:45 Dose: 12.5 mg Documented by: Sodium Chloride () 10 - 40 ml IV UD PRN PRN Reason: SALINE FLUSH Last Admin: 04/09/20 02:30 Dose: 10 ml Documented by: Medical Necessity - Tobacco Use Smoking Status: Never smoker Tobacco Use: Non-smoker Assessment/Plan All Active Problems Acute kidney injury superimposed on CKD (Acute) ESRD (end stage renal disease) on dialysis (Acute) CKD stage IV/V Now progressed to end-stage renal disease. She was in the process of starting dialysis as outpatient anyway. No presented with severe acidosis, significant uremic symptoms. Has dyspnea with minimal exertion. seen on HD today better tolerance ok to dc today [place] [facility] [place]. spot changed to TTS 1130 am. notified patient
--- NOTE | 2020-04-09 12:46 | DS.PCM_ITS ---
<Yoan Allan - Last Filed: 04/09/20 12:46> Discharge Date and Diagnosis Date of Admission: 04/06/20 Date of Discharge: 04/09/20 - Primary Discharge Diagnosis Acute Problems: PEARL on CKD IV, now ESRD Hemodialysis initiated HTN Anemia of chronic dz: ESRD Hx renal calculi Bradycardia/2nd degree block 2/2 nausea and vomiting - Secondary Discharge Diagnosis Chronic Problems: Chronic Problems Renal calculi (Chronic) Urinary tract infection (Chronic) Hypertension (Chronic) Hospital Course and Treatment Imaging Results: RAD/Chest 1 View (Portable) IMPRESSION: No acute cardiopulmonary disease. US/Kidney and Bladder IMPRESSION: Severe bilaterally renal atrophy. The kidneys demonstrate largest measures 20 mm without hydronephrosis. 3 Left renal cysts, the largest measures 3 cm. RAD/CXR for Line Placement IMPRESSION: Tunneled right chest wall hemodialysis catheter now in place. No pneumothorax. No acute infiltrate or CHF. Consults: Vascular surgery - [facility] - [facility] Operations: - - Right IJ dialysis cath 04/07/20 Procedures: Blood transfusion, Dialysis Summary of Care Provided: Hospital Course: The patient is a 70 year old F with pmhx of ESRD, HTN, renal calculi who presented to the ER with c/o nausea and poor PO intake for about 3 weeks. She appeared to have PEARL on CKD IV with BUN 114 and Cr 10.80 (baseline 2-3) with hyperphosphatemia and metabolic acidosis. She was admitted to the PCU and nephrology was consulted. She was given IV fluids and an US of the bladder was performed. This demonstrated severe atrophic kidneys and renal cysts. The naun ent was agreeable to hemodialysis. Dr. Ch performed a right IJ dialysis cath placement on 04/07. She was then dialyzed daily. She had some nausea and vomiting initially with first round of dialysis. While vomiting she became jess with a 2nd degree block however this resolved after the nausea and did not recur. Dialysis was tolerated well the next day. Hgb declined to 7 while here and she was transfused with 1 unit prbc with good response. Iron and Iron Sat were elevated. Acidosis resolved. K and Mag were replaced. Phos remains somewhat elevated altho it is improved. We arranged o/p dialysis for her. She was discharged home in stable condition. She will need to follow up with nephrology as directed, with Dr. Ch for surgical needs as directed. This patient was seen by Yoan Allan PA-C under the supervision of Dr. Borrero[] - Physical Exam Vitals/I&O's: Vital Signs Temp Pulse Resp BP Pulse Ox 98.5 F 65 18 116/65 96 04/09/20 09:00 04/09/20 09:00 04/09/20 09:00 04/09/20 09:00 04/09/20 09:00 Oxygen Delivery Method Room Air Weight: 179 lb 14.355 oz Body Mass Index (BMI) 28.3 Intake and Output for Last 24 Hours 04/07/20 04/08/20 04/09/20 23:59 23:59 23:59 Intake Total 4025.58 / 4025.58 2348.33 / 2348.33 120 / 120 Output Total 2900 / 2900 1200 / 1200 Balance 1125.58 / 1125.58 1148.33 / 1148.33 120 / 120 Laboratory Results 04/06/20 17:25: Crossmatch See Detail 04/08/20 09:35: Hep B Core Total Ab Negative 04/09/20 05:25: WBC 7.5, RBC 3.12 L, Hgb 8.8 L, Hct 26.4 L, MCV 84.6, MCH 28.2, MCHC 33.3 D, RDW Std Deviation 43.2, RDW Coeff of [place] 14.0, Plt Count 184, MPV 11.8, Immature Gran % (Auto) 0.500, Neut % (Auto) 66.9, Lymph % (Auto) 18.4 L, [place] % (Auto) 7.9, Eos % (Auto) 5.5 H, Baso % (Auto) 0.8, Absolute Neuts (auto) 5.0, Absolute Lymphs (auto) 1.37, Nucleated RBC % 0 04/09/20 05:25: Sodium 141, Potassium 3.1 L, Chloride 105, Carbon Dioxide 26.0, Anion Gap 10, BUN 63 H, Creatinine 6.89 H, Estim Creat Clear Calc 7.28, Est GFR (MDRD) Af Amer 8 L, Est GFR (MDRD) Non-Af 6 L, BUN/Creatinine Ratio 9.1 L, Glucose 106, Calcium 7.6 L 06/26/20 05:25: Phosphorus 6.6 H, Magnesium 1.6 Discharge Diet: Renal Diet Discharge Activity: Return to Normal Activity, May Not Shower Call your doctor if you observe: Fever of 101 or Higher Suture Line Care: Avoid Pulling/Pushing, Avoid Pinching/Bending Home Medications: Medications to take at Discharge Amlodipine [Norvasc] 10 mg PO DAILY 04/19/18 Ondansetron HCl [Zofran] 4 mg PO Q6H PRN PRN #20 tab 04/09/20 Following Prescrptions Were Given to Patient: Ondansetron HCl [Zofran] 4 mg PO Q6H PRN PRN #20 tab PRN Reason: Nausea Transmission Status: Received by [facility] Primary Care Physician: Jewell Bowens DO [Primary Care Provider] - Please follow up with your Primary Care Physician in: 1-2 weeks Please Follow Up With: Kenney Ch MD When: Office appointment when recommended by Dr. Keene Please Follow Up With: Geronimo Keene MD When: as directed Please Follow Up With: Jewell Bowens DO Additional Instructions: Please keep the dialysis catheter site clean and dry. The dialysis center nursing will assist with routine dressing changes. Medical Necessity - Tobacco Use Smoking Status: Never smoker Tobacco Use: Non-smoker Meaningful Use Info Meaningful Use Diagnoses (Choose all that apply): None applicable <Bernardino Borrero - Last Filed: 04/09/20 13:26> Discharge Date and Diagnosis - Secondary Discharge Diagnosis Chronic Problems: Chronic Problems Renal calculi (Chronic) Urinary tract infection (Chronic) Hypertension (Chronic) Hospital Course and Treatment Operations: - Procedures: Blood transfusion, Dialysis Summary of Care Provided: Presents with nausea, decreased intake. Patient was found to have acute kidney injury on chronic kidney disease. Patient was seen by nephrology and recommend initiating hemodialysis. Patient had a tunneled dialysis catheter placed. Patient and started on dialysis on the and then again had it today. Patient has dialysis center established and patient will be starting on dialysis every Sunday starting April 13. [] - Physical Exam Vitals/I&O's: Vital Signs Temp Pulse Resp BP Pulse Ox 36.9 C 65 18 116/65 96 04/09/20 09:00 04/09/20 09:00 04/09/20 09:00 04/09/20 09:00 04/09/20 09:00 Oxygen Delivery Method Room Air Weight: 81.6 kg Body Mass Index (BMI) 28.3 Intake and Output for Last 24 Hours 04/07/20 04/08/20 04/09/20 23:59 23:59 23:59 Intake Total 4025.58 / 4025.58 2348.33 / 2348.33 120 / 120 Output Total 2900 / 2900 1200 / 1200 Balance 1125.58 / 1125.58 1148.33 / 1148.33 120 / 120 General: Alert, No apparent distress HEENT: Atraumatic, Normocephalic Oral: Moist Mucosa, No Gingival or Mucosal Lesions/ Ulcerations Neck: No Nodes, Thyroid Normal Size and Texture Lungs: Clear to auscultation, Normal air movement, No rhonchi, No wheeze Cardiovascular: Regular rate, Regular Rhythm, Normal S1, Normal S2, No murmurs Abdomen: Bowel Sounds Present, Soft, Non Tender, Non-Distended Extremities: No edema, No Calf Tenderness Skin: No rashes, No breakdown Psych/Mental Status: Normal Affect, Appropriate Laboratory Results 04/06/20 17:25: Crossmatch See Detail 04/08/20 09:35: Hep B Core Total Ab Negative 04/09/20 05:25: WBC 7.5, RBC 3.12 L, Hgb 8.8 L, Hct 26.4 L, MCV 84.6, MCH 28.2, MCHC 33.3 D, RDW Std Deviation 43.2, RDW Coeff of [place] 14.0, Plt Count 184, MPV 11.8, Immature Gran % (Auto) 0.500, Neut % (Auto) 66.9, Lymph % (Auto) 18.4 L, [place] % (Auto) 7.9, Eos % (Auto) 5.5 H, Baso % (Auto) 0.8, Absolute Neuts (auto) 5.0, Absolute Lymphs (auto) 1.37, Nucleated RBC % 0 04/09/20 05:25: Sodium 141, Potassium 3.1 L, Chloride 105, Carbon Dioxide 26.0, Anion Gap 10, BUN 63 H, Creatinine 6.89 H, Estim Creat Clear Calc 7.28, Est GFR (MDRD) Af Amer 8 L, Est GFR (MDRD) Non-Af 6 L, BUN/Creatinine Ratio 9.1 L, Glucose 106, Calcium 7.6 L 04/09/20 05:25: Phosphorus 6.6 H, Magnesium 1.6 Discharge Diet: Renal Diet Discharge Activity: Return to Normal Activity, May Not Shower Call your doctor if you observe: Fever of 101 or Higher Disposition: Home Minutes spent on discharge:: 35 Patient Condition:: Good Medical Necessity - Tobacco Use Smoking Status: Never smoker Tobacco Use: Non-smoker Meaningful Use Info Meaningful Use Diagnoses (Choose all that apply): None applicable Inpatient E&M: 36364 Disch Hosp
--- NOTE | 2020-04-12 13:31 | CASEMGMT ---
BRENDEN MARKS Discharge F/U Phone Call LACE: 12 Strata: 3 Discharge date: 04/09/2020 Call date: 04/12/2020 Call time: [phone] Admission dx: PEARL Pt states she is 'doing pretty good' since discharge. Pt states that her blood pressure did go up at the end of dialysis on sunday but she checked it once home and states 'it was better.' Pt states she will discuss with Dr. Keene. Pt states no further questions regarding discharge instructions/medications at this time. Pt states plans to keep f/u appt's. Pt states no suggestions for [facility] at this time and states 'Everyone was so great.' Pt states no further questions/concerns/needs at this time. SStaten BRENDEN MARKS
== END 2020-04-09 12:26 | disposition home or self-care (01) | DRG 674 ==
LOC: ED 16:45 → PCU 18:17
PROVIDERS: Internal Medicine Nephrology; Physician Assistant; Surgery; Admitting Provider Internal Medicine; Emergency Provider Emergency Medicine; PCP Family Medicine
PROC: 02H633Z Insertion of Infusion Device into Right Atrium, Percutaneous Approach (ICD-10-PCS; principal; 2020-04-07 14:45)
DX: N17.9 Acute kidney failure, unspecified (principal); I12.0 Hypertensive chronic kidney disease with stage 5 chronic kidney disease or end stage renal disease; E87.2 Acidosis; N18.6 End stage renal disease; D63.8 Anemia in other chronic diseases classified elsewhere; N20.0 Calculus of kidney; E83.39 Other disorders of phosphorus metabolism; D51.0 Vitamin B12 deficiency anemia due to intrinsic factor deficiency; R00.1 Bradycardia, unspecified; I44.1 Atrioventricular block, second degree; R11.2 Nausea with vomiting, unspecified; R63.3 Feeding difficulties; Z66 Do not resuscitate; Z87.442 Personal history of urinary calculi; Z87.891 Personal history of nicotine dependence; Z98.84 Bariatric surgery status; Z99.2 Dependence on renal dialysis
CPT/HCPCS: 36415; 71045; 76770; 77001; 80048; 80053; 81001; 82570; 83540; 83550; 83690; 83735; 83880; 84100; 84300; 84484; 85025; 86704; 86706; 86850; 86900; 86901; 86920; 86922; 87340; 87635; 90937; 93005; 93970; 99251; 99285; G2023; J7030; J7040; P9040; A4216; C1750; G0257; G0463; J2405; Q5106; U0003

== ENCOUNTER 2020-05-03 08:39 | Day surgery (SDC) | payer MEDICARE, OTHER, SELFPAY ==
[2020-04-14 14:02] VITALS: BMI 28.3
[2020-04-28 10:25] LABS: Hematocrit 32.8 % (37-47); Hemoglobin 9.8 g/dL (12.0-15.0); Mean Corp Hgb Conc 29.9 g/dL (32-36); Mean Corpuscular Hgb 28.3 pg (27.0-32.0); Mean Corpuscular Volume 94.8 fL (81-99); Mean Platelet Vol. 10.2 fl (6.2-12.0); Platelet Count 296 K/mm3 (150-450); RBC Distribution Width CV 15.2 % (11.6-14.6); RBC Distribution Width SD 48.1 fl (35.1-43.9); Red Blood Count 3.46 M/mm3 (4.2-5.4); White Blood Count 7.3 K/mm3 (4.4-11.0)
[2020-04-28 10:50] LABS: Anion Gap 8 (5-15); BUN 23 mg/dL (7-18); BUN/Creat Ratio 4.1 RATIO (10-20); Calcium,Total 8.9 mg/dL (8.5-10.1); Chloride 101 mmol/L (98-107); Creatinine, Serum 5.59 mg/dL (0.55-1.02); EST Glomerular Filtration Rate 8 mL/min (>60); Est Glom Filt Rate - Afr Amer 10 mL/min (>60); Glucose 100 mg/dL (74-106); Potassium 3.7 mmol/L (3.5-5.1); Sodium Level 138 mmol/L (136-145)
[2020-05-03] VITALS (7 sets, daily range): BP systolic 100–118; BP diastolic 59–65; PULSE 66–69; RESP 14–16; TEMP 36–36.9; O2SAT 96–99; BMI 27.3
[2020-05-03] MEDS: 0.9% Normal Saline 1,000 ML 30 ML IV (09:41)
--- NOTE | 2020-05-03 10:32 | HP.PCM_ITS ---
Problem List (1) Chronic renal failure, stage 5 Status: Chronic History and Physical Date of Admission: 05/03/20 Intake Visit Reasons: VEIN MAPPING US 04/08 Chief Complaint: vein mapping f/u [employer] Required: No Is patient in pain?: No Allergies adhesive tape Allergy (Verified 04/14/20 14:07) Rash amoxicillin [From Augmentin] Allergy (Verified 04/14/20 14:07) Swelling cephalexin [From Keflex] Allergy (Verified 04/14/20 14:07) Swelling clavulanic acid [From Augmentin] Allergy (Verified 04/14/20 14:07) Swelling latex Allergy (Verified 04/14/20 14:07) Rash Penicillins [PCN] Allergy (Verified 04/14/20 14:07) Swelling sulfamethoxazole [From Bactrim] Allergy (Verified 04/14/20 14:07) rash,swellling, itching trimethoprim [From Bactrim] Allergy (Verified 04/14/20 14:07) rash,swellling, itching Medications Amlodipine [Norvasc] 10 mg PO DAILY 04/19/18 [History Confirmed 04/14/20] [facility] Medical History (Updated 04/14/20 @ 14:[address] Kenney Ch MD) Chronic renal failure, stage 5 (Chronic) Renal calculi (Chronic) Urinary tract infection (Chronic) Hypertension (Chronic) Acute kidney injury superimposed on CKD (Acute) ESRD (end stage renal disease) on dialysis (Acute) Surgical History S/P bypass gastroenterostomy (Acute) S/P hemorrhoidectomy (Acute) Social History (Updated 04/14/20 @ 14:[address] Kenney Ch MD) Smoking Status: Never smoker alcohol intake: never HPI HPI HPI: CHRISTIANO AWAD, is a 70 F who presents to the office today for who has a history of severe chronic renal insufficiency who presented to the [facility] with acute failure. She had not previously undergone evaluation for fistula. I was asked to emergently see her and on April 07, 2020 I placed a right internal jugular tunneled dialysis catheter. She is currently receiving hemodialysis via that catheter. She had bilateral upper extremity vein mapping performed on April 09, 2020. This demonstrates that bilateral upper extremity cephalic veins are diminutive. Bilateral radial arteries are diminutive. She is right arm dominant. [facility] [address] [place] [address] Saphenous Vein Mapping, Bilat 04/09/20 1027 MR#: [id number] Name:CHRISTIANO AWAD #:[id number] : 1950 70From:Kenney Ch MD Attending Dr: Dr. Bernardino Borrero, DOStatus: DIS IN Ordering Dr: Kenney Ch MDDate: 04/08/20 Location:PCUSex:FC Admitted: 04/06/20 Reason For Study: vein mapping for dialysis Right Arm Left Arm Right cephalic vein is compressible. Cephalic Vein is too small to assess. Right Cephalic Vein at the shoulder Left basilic vein is compressible. measures .19 X .2 cm. Basilic vein at bicep measures .35 x .39 cm. Right Cephalic Vein mid bicep measures .21 Basilic vein above antecub measures .42 x .43 X .21 cm. cm. Right Cephalic Vein above antecub Basilic vein below antecub measures .29 x .29 measures .14 X .15 cm. cm. Right Cephalic Vein below antecub Basilic vein in the forearm measures .21 measures .24 X .26 cm. x .26 cm. Right Cephalic Vein in the forearm Basilic vein at the wrist measures .22 x .23 measures .18 X .19 cm. cm. Right Cephalic Vein at the wrist measures .18 Brachial Art .36 x .37 cm. X .19 cm. Brachial Art 67.7 cm/s. Right basilic vein is compressible. Radial Art .19 x .2 cm. Right Basilic Vein mid bicep measures .38 Radial Art 83.3 cm/s. X .35 cm. Right Basilic Vein above antecub measures .31 Images are mislabelled for Right and Left X .33 cm. side. Right Basilic Vein below antecub measures .21 X .23 cm. Right Basilic Vein in the forearm measures .16 X .22 cm. Right Basilic Vein at the wrist measures .16 X .15 cm. Brachial Art .39 x .4 cm. Brachial Art 78.5 cm/s. Radial Art .18 x .22 cm. Radial Art 87.2 cm/s. Interpretation Summary Right cephalic vein small Right upper arm basilic vein patent/compressible Left cephalic vein diminutive Levt upper arm basilic vein patent/compressible Bilateral radial arteries small Bilateral brachial arteries normal diameters Ordering Physician: Kenney Ch Performed By: Chago Leonard RVT ? 04/09/20 1358 Date Kenney Ch MD HPI HPI HPI: CHRISTIANO AWAD, is a 70 F who presents to the office today for ROS General General: Yes weight change and fatigue; no appetite, colon cancer, breast cancer or weakness HEENT HEENT: No difficulty swallowing, eye injury, eye surgery, swollen glands or hoarseness Endo Endocrine: No thyroid disease, diabetes mellitus, thyroid cancer, Hair loss, heat intolerance or cold intolerance Skin Skin: No rash or changing moles Breast Breast: No left breast lump, right breast lump, nipple discharge, breast pain, abnormal mammogram, abnormal US or breast enlargement Musc Musculoskeletal: Yes back problems; no arthritis, rheumatoid arthritis, gout or joint pain Cardio Cardiovascular: Yes high blood pressure; no murmur, pacemaker, heart disease, atrial fibrillation, heart attack, heart stent, palpitations, shortness of breat with exertion or chest pain Psych Psychiatric: Yes anxiety; no depression or hearing voices Resp Respiratory: Yes shortness of breath, No sleep apnea, No cough, No COPD, No asthma, No emphysema, No wheezing Gastro Gastrointestinal: No abdominal pain, No nausea or vomiting, No diarrhea, No constipation, No blood in stool, No acid reflux, Yes hemorrhoids, No ulcers, No gallbladder problem, No black,tarry stools Nolberto Hematologic: No blood thinners, No blood disorders, No bleeding, No anemia, No blood clots Neuro Neurologic: No system reviewed and no additional complaints, except as docu, No as per HPI, No abnormal walking, No abnormal hearing, No abnormal movements, No abnormal speech, No behavioral changes, No burning sensations, No confusion, No seizure-like activity, No unsteadiness, No dizziness, No localized weakness, No frequent falls, No headache(s), No lack of coordination, No loss of vision, No memory loss, No numbness, No other visual disturbances, No radiating pain, No restless legs, No sensory deficit, No fainting, No tingling, No tremor(s), No weakness, No other Exam Const General: cooperative, comfortable, no acute distress Nutritional Appearance: average body habitus Orientation: alert, awake HENMT Head: normal to inspection Chest Breast Palpation: No nipple discharge Resp Effort & Inspection: normal respiratory effort Auscultation: clear to auscultation bilaterally Cardio Rate: regular rate Rhythm: regular rhythm Heart Sounds: no murmurs GI Palpation: soft, no hepatosplenomegaly Neuro Cognition: normal cognition Extrem Other: Left antecubital space evidence of remote brachial artery cutdown. Ultrasound special reveals a patent and compressible left upper arm basilic vein. 3+ left brachial pulse Psych Affect: normal affect Assessment & Plan Problems 1. Chronic renal failure, stage 5 N18.5 Plan Stage V chronic renal failure now on hemodialysis via a tunneled right internal jugular dialysis catheter. Patient is right arm dominant. I propose a staged left upper extremity brachiobasilic AV fistula creation. Care will need to be taken as she has had a remote left brachial artery cutdown. I have extensively discussed with the patient and her daughter the technique, benefit, risk, alte rnatives. I propose stage I left upper extremity brachiobasilic AV fistula creation. We will schedule and proceed at her discretion. She is well aware that future transposition will be required. She is aware that the [facility] is currently reporting a low local incidence of Covid-19. No guarantees offered. CC: Dr. Jassi Ch M.D., F.A.C.S. I have re-examined the patient. There are no clinical changes since date of exam. Procedure Criteria Procedure Type: Elective COVID Risk Discussion: The surgeon/proceduralist and patient have discussed in detail the risk of exposure to and/or potential harm posed by the COVID-19 virus with having a surgery/procedure at this time versus the risk of delaying the surgery/procedure. It is not possible to know either the risk of delaying the surgery or procedure or chance of getting an infection with perfect accuracy, but a joint decision was made between the patient and the surgeon/proceduralist to proceed at this time with the scheduled surgery/procedure as indicated on the consent form.
--- NOTE | 2020-05-03 10:33 | DCINST_ITS ---
Discharge Diet: Renal Diet Discharge Activity: May Not Drive - for 2-3 days or while taking narcotic pain medications., May Take a Tub Bath - in 5 days. Lifting Restrictions: 5 pounds Keep extremity elevated above heart level: - - Keep arm elevated above the heart level for 3 days. Additional Activity Instructions:: Exercise hand vigorously with a stress ball. Call your doctor if your incision/area has: Continuous Slow Oozing, Sudden Increased Bleeding - apply pressure and call your doctor., Increased Pain/ Swelling, Increased Redness, Foul Smelling Discharge Call your doctor if you observe: Fever of 101 or Higher Suture Line Care: Avoid Pulling/Pushing, Avoid Pinching/Bending Cleanse incision/area with: Keep Dressing Clean & Dry Additional Dressing/Incision Instructions:: Change or remove dressing in one day. May protect with a gauze bandaid. Allergies/Adverse Reactions: Allergies adhesive tape Allergy (Verified 05/03/20 09:05) Rash amoxicillin [From Augmentin] Allergy (Verified 05/03/20 09:05) Swelling cephalexin [From Keflex] Allergy (Verified 05/03/20 09:05) Swelling clavulanic acid [From Augmentin] Allergy (Verified 05/03/20 09:05) Swelling latex Allergy (Verified 05/03/20 09:05) Rash Penicillins [PCN] Allergy (Verified 05/03/20 09:05) Swelling sulfamethoxazole [From Bactrim] Allergy (Verified 05/03/20 09:05) rash,swellling, itching trimethoprim [From Bactrim] Allergy (Verified 05/03/20 09:05) rash,swellling, itching Medications to take at Discharge Amlodipine [Norvasc] 10 mg PO DAILY 04/19/18 Folic Acid/Vit B Complex and C [Renal-Daniel Tablet] 1 tab PO DAILY 04/23/20 Primary Care Physician: Jewell Bowens DO [Primary Care Provider] - Test Results: Test results from this visit will be discussed in further detail at your follow- up appointment, if applicable. Please Follow Up With: Kenney Ch MD - [phone] When: Call to make an appointment for followup 10 days
[2020-05-03] MEDS: Bupivacaine Mpf 0.5% 30 ML VIAL (12:05)
[2020-05-03] MEDS: Heparin Injection (Vial) 5,000 UNIT/ML VIAL 5000 UNIT (12:26)
--- NOTE | 2020-05-03 13:08 | OP.PCM_ITS ---
Problem List (1) Chronic renal failure, stage 5 Status: Chronic Report of Operation Date of Procedure: 05/03/20 Pre-Operative Diagnosis: Stage V chronic renal failure Post-Operative Diagnosis: Same Surgery/Procedure Performed:: Stage I left upper extremity basilic vein to brachial artery arteriovenous hemodialysis fistula creation Description of Surgical Findings:: Timeout and informed consent was obtained. 70-year-old female was taken to the operating placed by the table she underwent monitored anesthesia care. The left upper extremity was sterilely prepped and draped. 1% lidocaine mixed 50-50 with 0.5% Marcaine was used as a local anesthetic. Throughout the procedure total of 20 cc was used. Ultrasound was used to map the course of the basilic vein local was instilled and oblique incision was made volar aspect of left antecubital space sharp and blunt dissection was used to identify the basilic vein it was dissected free. Then sharp and blunt dissection was used to identify the brachial artery. The patient then received 7000 units of heparin IV. The vein was secured distally with a Hemoclip was then amputated and spatulated. Peripheral vascular clamps were placed on the brachial artery and 11 blade was used to make an arteriotomy which was extended with Flowers scissors. A end-to-side venous to arterial anastomosis was created with running 7-0 Prolene. Prior to completion of there is good antegrade retrograde flow. The anastomosis completed. There was a single repair suture at the heel. Flow appeared to be strong. Doppler signal demonstrated excellent flow. The left radial artery still 2+. The wound was closed with deep layer of interrupted 3-0 Vicryl subcutaneous tissues and then a running septic or 4-0 Monocryl. Steri- Strips Telfa tape dressings applied. The patient received 20 mg of protamine as reversal agent. No apparent complications Specimens none. Blood loss minimal. Drains none. She was taken to the recovery area in satisfactory condition without apparent complication. Kenney Ch M.D., F.A.C.S. Type of Anesthesia:: Local MAC Anesthesiologist: Yariel Chapman
--- NOTE | 2020-05-03 14:16 | SUR.PHASEII ---
1400 Shadow drainage noted to fistula site. outlined. will cont to monitor.
--- NOTE | 2020-05-03 14:57 | SUR.PHASEII ---
1430 new dressing applied due to shadow drainage noted beyond outline. 1500 no drainage noted on new dressing.
== END 2020-05-03 15:34 | disposition home or self-care (01) ==
LOC: SDC 08:39 → AC 11:49
PROVIDERS: Anesthesiology; PCP Family Medicine; Referring Provider Surgery; Visit Provider Surgery
PROC: (CPT 36821; principal; 2020-05-03 10:45)
DX: Z49.01 Encounter for fitting and adjustment of extracorporeal dialysis catheter (principal); I12.0 Hypertensive chronic kidney disease with stage 5 chronic kidney disease or end stage renal disease; Z11.59 Encounter for screening for other viral diseases; N18.5 Chronic kidney disease, stage 5; Z98.84 Bariatric surgery status; K21.9 Gastro-esophageal reflux disease without esophagitis; D51.0 Vitamin B12 deficiency anemia due to intrinsic factor deficiency; Z79.899 Other long term (current) drug therapy; G25.81 Restless legs syndrome
CPT/HCPCS: 01844; 36821; 36415; 80048; 85027; 87635; G2023; J7030; J7120; U0003

== ENCOUNTER 2020-05-26 07:22 | Day surgery (SDC) | payer MEDICARE, OTHER, SELFPAY ==
[2020-05-12 15:52] VITALS: BMI 27.3
[2020-05-19 17:14] LABS: Hematocrit 36.6 % (37-47); Hemoglobin 10.9 g/dL (12.0-15.0); Mean Corp Hgb Conc 29.8 g/dL (32-36); Mean Corpuscular Hgb 28.8 pg (27.0-32.0); Mean Corpuscular Volume 96.8 fL (81-99); Platelet Count 245 K/mm3 (150-450); RBC Distribution Width CV 14.8 % (11.6-14.6); RBC Distribution Width SD 53.1 fl (35.1-43.9); Red Blood Count 3.78 M/mm3 (4.2-5.4); White Blood Count 8.1 K/mm3 (4.4-11.0)
[2020-05-19 17:28] LABS: Anion Gap 10 (5-15); BUN 27 mg/dL (7-18); BUN/Creat Ratio 4.8 RATIO (10-20); Chloride 102 mmol/L (98-107); Creatinine, Serum 5.65 mg/dL (0.55-1.02); EST Glomerular Filtration Rate 8 mL/min (>60); Est Glom Filt Rate - Afr Amer 10 mL/min (>60); Glucose 93 mg/dL (74-106); Potassium 4.1 mmol/L (3.5-5.1); Sodium Level 140 mmol/L (136-145)
[2020-05-26 08:05] VITALS: BP 106/76; PULSE 74; RESP 16; TEMP 36.2; O2SAT 97; BMI 27.1
[2020-05-26] MEDS: 0.9% Normal Saline 1,000 ML 100 ML IV (08:27)
--- NOTE | 2020-05-26 08:35 | PCM.HP.BLA ---
Problem List (1) Chronic renal failure, stage 5 Status: Chronic History and Physical Date of Admission: 05/26/20 Intake Visit Reasons: AV Fistula Creaton 05/03 Chief Complaint: Follow up AV Fistula creation 05/03/20 Allergies adhesive tape Allergy (Verified 05/12/20 15:22) Rash amoxicillin [From Augmentin] Allergy (Verified 05/12/20 15:22) Swelling cephalexin [From Keflex] Allergy (Verified 05/12/20 15:22) Swelling clavulanic acid [From Augmentin] Allergy (Verified 05/12/20 15:22) Swelling latex Allergy (Verified 05/12/20 15:22) Rash Penicillins [PCN] Allergy (Verified 05/12/20 15:22) Swelling sulfamethoxazole [From Bactrim] Allergy (Verified 05/12/20 15:22) rash,swellling, itching trimethoprim [From Bactrim] Allergy (Verified 05/12/20 15:22) rash,swellling, itching Medications Amlodipine [Norvasc] 10 mg PO DAILY 04/19/18 [History Confirmed 05/12/20] Folic Acid/Vit B Complex and C [Renal-Daniel Tablet] 1 tab PO DAILY 04/23/20 [History Confirmed 05/12/20] [facility] Medical History (Updated 05/12/20 @ 15:24 by Yaneth Adrian) Chronic renal failure, stage 5 (Chronic) Renal calculi (Chronic) Urinary tract infection (Chronic) Hypertension (Chronic) Acute kidney injury superimposed on CKD (Acute) ESRD (end stage renal disease) on dialysis (Acute) Surgical History (Updated 05/12/20 @ 15:24 by Yaneth Adrian) S/P bypass gastroenterostomy (Acute) S/P hemorrhoidectomy (Acute) history Left AV Fistula Creation (Acute ~05/03/20) Social History (Updated 05/12/20 @ 16:[address] Kenney Ch MD) Smoking Status: Never smoker alcohol intake: never HPI HPI HPI: CHRISTIANO AWAD, is a 70 F who presents to the office today for surgical follow-up. On May 03 I performed stage I left upper extremity basilic vein to brachial artery AV fistula creation. She has no particular complaints. She notes some mild swelling at the site. There is no hand pain. She has stage V chronic renal insufficiency. She is currently being dialyzed via tunneled right internal jugular dialysis catheters. HPI HPI HPI: CHRISTIANO AWAD, is a 70 F who presents to the office today for ROS General General: Yes weight change and fatigue; no appetite, colon cancer, breast cancer or weakness HEENT HEENT: No difficulty swallowing, eye injury, eye surgery, swollen glands or hoarseness Endo Endocrine: No thyroid disease, diabetes mellitus, thyroid cancer, Hair loss, heat intolerance or cold intolerance Skin Skin: No rash or changing moles Breast Breast: No left breast lump, right breast lump, nipple discharge, breast pain, abnormal mammogram, abnormal US or breast enlargement Musc Musculoskeletal: Yes back problems; no arthritis, rheumatoid arthritis, gout or joint pain Cardio Cardiovascular: Yes high blood pressure; no murmur, pacemaker, heart disease, atrial fibrillation, heart attack, heart stent, palpitations, shortness of breat with exertion or chest pain Psych Psychiatric: Yes anxiety; no depression or hearing voices Resp Respiratory: Yes shortness of breath, No sleep apnea, No cough, No COPD, No asthma, No emphysema, No wheezing Gastro Gastrointestinal: No abdominal pain, No nausea or vomiting, No diarrhea, No constipation, No blood in stool, No acid reflux, Yes hemorrhoids, No ulcers, No gallbladder problem, No black,tarry stools Nolberto Hematologic: No blood thinners, No blood disorders, No bleeding, No anemia, No blood clots Neuro Neurologic: No weakness Exam Const General: cooperative, comfortable, no acute distress Nutritional Appearance: average body habitus Orientation: alert, awake [facility] Head: normal to inspection Eyes General: appearance normal, both eyes and all related structures Chest Breast Palpation: No nipple discharge Resp Effort & Inspection: normal respiratory effort Auscultation: clear to auscultation bilaterally Cardio Rate: regular rate Rhythm: regular rhythm Heart Sounds: no murmurs GI Palpation: soft Extrem Other: Left upper extremity has a healing antecubital incision. There is a pulse thrill and bruit within the stage I brachiobasilic AV fistula. She has a residual 2+ left radial pulse. The hand is warm and viable Psych Affect: normal affect Assessment & Plan Problems 1. Chronic renal failure, stage 5 N18.5 Plan The patient has no particular complaints today she is progressing well. I recommend to her stage II left upper extremity transposition basilic vein to brachial artery AV fistula creation in in detail I discussed the technique, benefit, risk of alternatives. No guarantees of success have been offered. Apparently there was some degree of confusion. We had been asked whether I would be willing to perform a fistula creation and peritoneal dialysis catheters at the same setting. My response was that I was uncomfortable with that because I do heparinized people for the fistula creation. Apparently that got translated into a response that I would not perform it. In any case the patient is seeing Dr. Rincon for peritoneal dialysis catheter placement. She is interested in pursuing home therapy. Cc: Dr. Jewell hernandez and Dr. Jassi Ch M.D., F.A.C.S. Coding Level of Care Code Global Post Op Diagnoses Chronic renal failure, stage 5 N18.5 I have re-examined the patient. There are no clinical changes since date of exam. Procedure Criteria Procedure Type: Elective COVID Risk Discussion: The surgeon/proceduralist and patient have discussed in detail the risk of exposure to and/or potential harm posed by the COVID-19 virus with having a surgery/procedure at this time versus the risk of delaying the surgery/procedure. It is not possible to know either the risk of delaying the surgery or procedure or chance of getting an infection with perfect accuracy, but a joint decision was made between the patient and the surgeon/proceduralist to proceed at this time with the scheduled surgery/procedure as indicated on the consent form.
--- NOTE | 2020-05-26 08:36 | DCINST_ITS ---
Discharge Diet: Renal Diet Discharge Activity: May Not Drive - for 2-3 days or while taking narcotic pain medications., May Shower, May Take a Tub Bath - in 5 days. Lifting Restrictions: 5 pounds Keep extremity elevated above heart level: - - Keep arm elevated above the heart level for 3 days. Additional Activity Instructions:: Exercise hand vigorously with a stress ball. Call your doctor if your incision/area has: Continuous Slow Oozing, Sudden Increased Bleeding - apply pressure and call your doctor., Increased Pain/ Swelling, Increased Redness, Foul Smelling Discharge Call your doctor if you observe: Fever of 101 or Higher Suture Line Care: Avoid Pulling/Pushing, Avoid Pinching/Bending Cleanse incision/area with: Keep Dressing Clean & Dry Additional Dressing/Incision Instructions:: You may remove the elastic wrap in 2 days. Leave the Steri-Strips in position. You may reapply dry gauze and tape as needed for protection or comfort. Allergies/Adverse Reactions: Allergies adhesive tape Allergy (Verified 05/26/20 07:48) Rash amoxicillin [From Augmentin] Allergy (Verified 05/26/20 07:48) Swelling cephalexin [From Keflex] Allergy (Verified 05/26/20 07:48) Swelling clavulanic acid [From Augmentin] Allergy (Verified 05/26/20 07:48) Swelling latex Allergy (Verified 05/26/20 07:48) Rash Penicillins [PCN] Allergy (Verified 05/26/20 07:48) Swelling sulfamethoxazole [From Bactrim] Allergy (Verified 05/26/20 07:48) rash,swellling, itching trimethoprim [From Bactrim] Allergy (Verified 05/26/20 07:48) rash,swellling, itching Medications to take at Discharge Amlodipine [Norvasc] 10 mg PO DAILY 04/19/18 Calcium Acetate [Phoslo Gel Cap] 2 cap PO TID 05/26/20 Primary Care Physician: Jewell Bowens DO [Primary Care Provider] - Test Results: Test results from this visit will be discussed in further detail at your follow- up appointment, if applicable. Please Follow Up With: Kenney Ch MD - [phone] When: Call to make an appointment for suture removal and follow up in 10-14 days
[2020-05-26] MEDS: Heparin Injection (Vial) 5,000 UNIT/ML VIAL 5000 UNIT (09:56)
[2020-05-26] MEDS: Bupivacaine Mpf 0.5% 30 ML VIAL (10:00)
--- NOTE | 2020-05-26 11:09 | PCM.OPRPT ---
Problem List (1) Chronic renal failure, stage 5 Status: Chronic Report of Operation Date of Procedure: 05/26/20 Pre-Operative Diagnosis: Stage 5 chronic renal insufficiency in need of hemodialysis access Post-Operative Diagnosis: Same Surgery/Procedure Performed:: Stage II transposition left upper arm basilic vein to brachial artery arteriovenous hemodialysis fistula creation Description of Surgical Findings:: Timeout and informed consent was obtained. 70-year-old female was taken to the operating place upon the table. She underwent monitored anesthesia care. The left upper extremity was sterilely prepped and draped. 1% lidocaine mixed 50-50 with 0.5% Marcaine was used as a local anesthetic. A total of 30 cc was used. An additional cc of half percent lidocaine was used. Ultrasound was used to identify the course of the basilic vein. Local was instilled. A longitudinal incision was serially made along the medial aspect of the left upper arm. Sharp and blunt dissection down through significant fibrofatty tissue. The basilic vein was identified it was carefully and tediously dissected free. Side branches were secured with 4-0 Vicryl ligatures and hemoclips were indicated. Having freed the vein all the way up to the shoulder I had adequate length. I measured the length. I plotted a coarse wart more on the dorsal surface of the arm. I then did sharp and blunt dissection to identify the left upper arm brachial artery and circumferential control was obtained. Local was instilled for the tunnel site. A curved [place] tunneler was placed. The vein was ligated close to the antecubital space with a 3-0 Vicryl suture ligature. It was then connected the tunneler and placed in the subcutaneous tunnel. The patient received 8000 units of heparin weight-based. Peripheral vascular clamps were placed on the brachial artery and a end-to-side anastomosis was created with the vein with a running 7-0 Prolene. Prior to completion there is good antegrade retrograde flow. The anastomosis was completed. There was immediately a good positional lie. There was a strong pulse and thrill at the completion. There was a 2+ left radial pulse and the hand appeared viable. There. To be a very good positional lie of the fistula. The wound was then closed in layers with a deep layer of interrupted 3-0 Vicryl and then superficial layer of a running septic or 4-0 Monocryl. Steri-Strips Telfa 4 x 4's ABD soft roll Johnny wrap applied. Sponge and instrument and needle counts were reported to the surgeon to be correct. Blood loss was minimal. She tolerated the procedure well. She was taken to the recovery area in satisfactory condition without apparent complication. Specimens none. Drains none. Blood loss minimal. Kenney Ch M.D., F.A.C.S. Type of Anesthesia:: Local MAC Anesthesiologist: Yariel Chapman
[2020-05-26 11:55] VITALS: BP 104/53; BP 106/76; PULSE 71; RESP 24; TEMP 36.7; O2SAT 94
[2020-05-26 12:00] VITALS: BP 106/76; BP 108/63; PULSE 72; RESP 16; O2SAT 95
[2020-05-26 12:05] VITALS: BP 106/76; BP 110/68; PULSE 69; RESP 16; O2SAT 94
[2020-05-26 12:13] VITALS: BP 106/76; BP 112/72; PULSE 81; RESP 16; TEMP 37; O2SAT 95
[2020-05-26] MEDS: HYDROcodone Bitartrate/Apap 5/325 Tablet PO (12:41)
[2020-05-26 13:39] VITALS: BP 106/76; BP 114/61; PULSE 63; RESP 16; TEMP 36.8; O2SAT 94
== END 2020-05-26 13:42 | disposition home or self-care (01) ==
LOC: SDC 07:22 → AC 07:23
PROVIDERS: Anesthesiology; PCP Family Medicine; Referring Provider Surgery; Visit Provider Surgery
PROC: (CPT 36819; principal; 2020-05-26 09:15)
DX: Z49.01 Encounter for fitting and adjustment of extracorporeal dialysis catheter (principal); I12.0 Hypertensive chronic kidney disease with stage 5 chronic kidney disease or end stage renal disease; N18.5 Chronic kidney disease, stage 5; Z11.59 Encounter for screening for other viral diseases; Z79.899 Other long term (current) drug therapy; K21.9 Gastro-esophageal reflux disease without esophagitis; Z98.84 Bariatric surgery status
CPT/HCPCS: 01844; 36819; 36415; 80048; 85027; 87635; 94799; J7030; U0003

== ENCOUNTER → 2020-07-07 09:52 | Outpatient (CLI) | payer MEDICARE, OTHER, SELFPAY ==
[2020-06-04 07:15] VITALS: BMI 27.1
--- NOTE | 2020-07-07 09:53 | AVDS_ITS ---
Reason For Study: Malfunction of device LEFT Inflow, Brachial A, 323.7/182.6 cm/sec. Inflow, Brachial A, 1444 ml/min. Prox anast, 272.9/137 cm/sec. Prox anast, 738.2 ml/min. Prox graft, 389.2/250.8 cm/sec. Prox graft, 1041 ml/min. Mid graft, 171.8/104.5 cm/sec. Mid graft, 1065 ml/min. Distal graft, 271.9/146.4 cm/sec. Distal graft, 1799 ml/min. Outflow, Basilic V, 149.9/54.1 cm/sec. Outflow, Basilic V, 1420 ml/min. Interpretation Summary High flow left brachial artery basis of fistula at 1444ml/min 0.38cm diameter anastomosis Proximal fistula 1041ml/min flow Mid fistula 1065 ml/min flow Distal fistula 1799 ml/min flow Outflow basilic vein 1420 ml/min flow Adequate fistula diameter throughout Ordering Physician: Kenney Ch Referring Physician: Jewell Bowens Performed By: Katia Ruvalcaba RVT
== END ==
PROVIDERS: PCP Family Medicine; Referring Provider Surgery; Visit Provider Surgery
DX: T82.59 Other mechanical complication of other cardiac and vascular devices and implants (principal); R20.0 Anesthesia of skin; Z99.2 Dependence on renal dialysis
CPT/HCPCS: 93990

== ENCOUNTER 2020-11-01 10:06 | Emergency (ER) | payer MEDICARE, OTHER, SELFPAY ==
[2020-07-20 11:07] VITALS: BMI 27.1
[2020-11-01 10:07] VITALS: BP 115/59; PULSE 94; RESP 18; TEMP 36.6; O2SAT 99; BMI 24.1
--- NOTE | 2020-11-01 10:10 | EKG12_ITS ---
Test Reason : Blood Pressure : / mmHG Vent. Rate : 079 BPM Atrial Rate : 079 BPM P-R Int : 112 ms QRS Dur : 080 ms QT Int : 378 ms P-R-T Axes : 003 021 067 degrees QTc Int : 433 ms Normal sinus rhythm Nonspecific ST and T wave abnormality Abnormal ECG Confirmed by CRISTIAN SHERIFF, ERNIE ([id number]), desk editor JOELLEN CHOUDHARY ([id number] on 11/03/2020 7:54:35 AM Referred By: JEREMI Confirmed By:ERNIE FOSTER MD
--- NOTE | 2020-11-01 10:21 | CT_ITS ---
STUDY: CT ABDOMEN AND PELVIS WITHOUT CONTRAST REASON FOR EXAM: Female, 70 years old. ABDOMINAL PAIN WITH INCREASE SOB AND WEAKNESS, ESRD-ON DIALYSIS, HTN, ARTERIAL STEAL SYNDROME, SURG-GASTRIC BYPASS,TUBAL,APPY,HEMORRHOIDECTOMY RADIATION DOSAGE (If Supplied By Facility): CTDIvol = ( 8.24 ) mGy, DLP = ( 434.20 ) mGycm TECHNIQUE: Transaxial images were obtained from the dome of the diaphragm to the symphysis pubis without oral contrast, and without intravenous contrast. Sagittal and coronal images were reconstructed. Individualized dose optimization techniques were used for this CT. COMPARISON: Comparison is made with prior study dated 11/09/2019. FINDINGS: The visualized lung bases are unremarkable. Coronary artery calcification. Small amount of perihepatic and perisplenic fluid. 3 air is seen in the right upper quadrant in keeping with the patient''s history of peritoneal dialysis. There is a solitary gallstone. Normal spleen. Normal pancreas. Normal bilateral adrenal glands. Once again, there is bilateral renal atrophy with multiple bilateral nonobstructive intrarenal calculi. Stable cysts in the lower pole of the left kidney. Normal visualized stomach. Normal small intestine. Normal colon. There are surgical clips in the region of the appendix consistent with a prior appendectomy. There is diffuse atherosclerotic calcification of the abdominal aorta and its major visceral branches, without a demonstrated aneurysm. Normal inferior vena cava. Normal retroperitoneum. Normal urinary bladder. Free fluid is seen in the pelvis. A peritoneal dialysis catheter is seen arising from the left anterior abdominal wall with its distal tip in the right hemipelvis. Normal abdominal wall. There are diffuse degenerative changes of the visualized lumbar spine. CT/Abdomen/Pelvis without Cont IMPRESSION: Ascites secondary to peritoneal dialysis and small amount of free air secondary to the dialysis. There has been essentially no change since prior study. Electronically Signed: Jonathon Crook MD at 11:19 EST , Service support ,
--- NOTE | 2020-11-01 10:22 | ED.DCSUM_ITS ---
History of Present Illness Chief Complaint: General Illness Informant: Patient Narrative: 70-year-old female with past medical history of hypertension and end-stage renal disease on peritoneal dialysis 5 times a day presents with concern for weakness and abdominal pain. States is been present over the past 2 to 3 days. Patient states that she has no appetite. States that she had this peritoneal dialysis catheter placed approximately 6 months ago. Patient had what sounds to be a significant bout of aloe nephritis with hydronephrosis approximately 30 years ago following a bariatric surgery which contributed to her chronic kidney disease and subsequent failure. Denies any fever, chills, cough, chest pain. States that she does have mild shortness of breath. Denies any drugs or alcohol. Past Medical History - Allergies and Home Meds Allergies/Adverse Reactions: Allergies adhesive tape Allergy (Verified 11/01/20 10:09) Rash amoxicillin [From Augmentin] Allergy (Verified 11/01/20 10:09) Swelling cephalexin [From Keflex] Allergy (Verified 11/01/20 10:09) Swelling clavulanic acid [From Augmentin] Allergy (Verified 11/01/20 10:09) Swelling latex Allergy (Verified 11/01/20 10:09) Rash Penicillins [PCN] Allergy (Verified 11/01/20 10:09) Swelling sulfamethoxazole [From Bactrim] Allergy (Verified 11/01/20 10:09) rash,swellling, itching trimethoprim [From Bactrim] Allergy (Verified 11/01/20 10:09) rash,swellling, itching Primary Care Physician: Jewell Bowens DO [Primary Care Provider] - Prior records reviewed: Yes Past Medical History: - - HTN and ESRD Surgical History: appendectomy, hysterectomy, - - 30 years ago 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, multiple cystoscopies due to kidney stones Lives: Alone Smoking Status: Never smoker Alcohol: None Drugs: None - Family History Maternal Family History: Reports: No pertinent history Paternal Family History: Reports: No pertinent history Review of Systems General: Reports: Malaise. Denies: Chills, Fever, Sweats Eyes: Denies: Visual changes - bilaterally, Diplopia ENT: Denies: Rhinorrhea, Sore throat Cardiovascular: Denies: Chest pain, Palpitations Respiratory: Denies: Dyspnea, Cough, Dyspnea on exertion Gastrointestinal: Reports: Abdominal pain. Denies: Nausea, Vomiting, Diarrhea, Melena, Hematochezia Genitourinary: Denies: Dysuria, Hematuria, Frequency Musculoskeletal: Denies: Back pain, Extremity Pain Skin: Denies: Rash, Wounds Neurological: Denies: Headache, Weakness, Numbness Physical Exam Vital Signs/Narrative: Vital Signs Temp Pulse Resp BP Pulse Ox 11/01/20 10:07 97.8 F 94 18 115/59 L 99 Inital Vital Signs reviewed: Yes General: Well nourished, Well developed, No Acute Distress Head: Normocephalic, Atraumatic Eyes: Perrl, EOMI ENT: Moist mucous membranes, No rhinorrhea Neck: Supple, Nontender Cardiovascular: Regular rate, Regular rhythm, No murmurs Respiratory: No distress, CTA bilaterally, Chest nontender Abdomen: Soft, Nondistended, Normal bowel sounds, - - TTP diffusely without rebound. Back: Nontender, Normal Inspection Extremities: Nontender, No edema Skin: Normal color, No rash Neurological: Alert, Oriented x3, Cranial nerves II-XII grossly intact, Normal Strength, Normal Sensation Psychological: Normal affect, Normal Mood Diagnostic/Tx/Re-eval Chest X-Ray - ED: 1 View, Read by ED Physician, Read by Radiologist, Normal Clinical Impression(s) from Imaging Studies Abdomen/Pelvis CT 11/01/20 10:21 IMPRESSION: Ascites secondary to peritoneal dialysis and small amount of free air secondary to the dialysis. There has been essentially no change since prior study. Electronically Signed: Jonathon Crook MD at 11:19 EST , Service support , Chest X-Ray 11/01/20 10:45 IMPRESSION: The lungs are clear. Questionable small amount of free air beneath the right hemidiaphragm. Electronically Signed: Jonathon Crook MD at 11:10 EST , Service support , Laboratory Data 11/01/20 11/01/20 11/01/20 10:30 10:30 10:30 WBC 8.2 RBC 3.50 L Hgb 10.0 L Hct 31.6 L MCV 90.3 MCH 28.6 MCHC 31.6 L RDW Std Deviation 45.4 H RDW Coeff of [place] 14.0 Plt Count 257 MPV 10.9 Immature Gran % (Auto) 0.500 Neut % (Auto) 68.8 Lymph % (Auto) 21.7 [place] % (Auto) 6.3 Eos % (Auto) 2.1 Baso % (Auto) 0.6 Absolute Neuts (auto) 5.7 Absolute Lymphs (auto) 1.79 Nucleated RBC % 0 Sodium 141 Potassium 2.9 L Chloride 107 Carbon Dioxide 24.0 Anion Gap 10 BUN 46 H Creatinine 5.75 H Estim Creat Clear Calc 8.73 Est GFR (MDRD) Af Amer 9 L Est GFR (MDRD) Non-Af 8 L BUN/Creatinine Ratio 8.0 L Glucose 92 Calcium 9.8 Magnesium 1.8 Total Bilirubin 0.40 AST 25 ALT 25 Alkaline Phosphatase 124 H Troponin I < 0.015 Total Protein 5.5 L Albumin 2.3 L Globulin 3.2 Albumin/Globulin Ratio 0.7 L Urine Color Urine Clarity Urine pH Ur Specific [place] Urine Protein Urine Glucose (UA) Urine Ketones Urine Occult Blood Urine Nitrite Urine Bilirubin Urine Urobilinogen Ur Leukocyte Esterase Urine RBC Urine WBC Ur Squamous Epith Cells Urine Bacteria Urine Mucus 11/01/20 14:10 WBC RBC Hgb Hct MCV MCH MCHC RDW Std Deviation RDW Coeff of [place] Plt Count MPV Immature Gran % (Auto) Neut % (Auto) Lymph % (Auto) [place] % (Auto) Eos % (Auto) Baso % (Auto) Absolute Neuts (auto) Absolute Lymphs (auto) Nucleated RBC % Sodium Potassium Chloride Carbon Dioxide Anion Gap BUN Creatinine Estim Creat Clear Calc Est GFR (MDRD) Af Amer Est GFR (MDRD) Non-Af BUN/Creatinine Ratio Glucose Calcium Magnesium Total Bilirubin AST ALT Alkaline Phosphatase Troponin I Total Protein Albumin Globulin Albumin/Globulin Ratio Urine Color Yellow Urine Clarity Clear Urine pH 7.0 Ur Specific [place] 1.010 Urine Protein 30 H Urine Glucose (UA) Normal Urine Ketones Negative Urine Occult Blood 25 H Urine Nitrite Negative Urine Bilirubin 1 H Urine Urobilinogen Normal Ur Leukocyte Esterase 500 H Urine RBC 0 SEEN Urine WBC 5-10 SEEN Ur Squamous Epith Cells 0-5 SEEN Urine Bacteria RARE Urine Mucus 0 SEEN - Rhythm Strip Rhythm Strip: Sinus Rhythm Rate: 79 Ectopy: None - EKG Initial EKG Interpretation: Sinus Rhythm - Normal sinus rhythm at 79 bpm. NC interval of 112 ms. QTC of [address] changes. - Medical Decision Making Patient appears well and nontoxic. Vital signs within normal limits. Lungs clear. Abdomen fairly benign but given the patient's high risk CT without contrast was done which shows no acute process. Lab work does show a hypokalemia which will be replaced IV. Magnesium normal. Chest x-ray which was reviewed by myself shows no evidence of acute cardiomegaly or infiltrate. Radiology concurs. Urine shows evidence of leukocytes with white blood cells. No nitrites. Urine will be sent for culture. Patient has been having some suprapubic fullness and pain so she will be treated with Keflex. Spoke with the patient's abstract manager Dr. Keene who is agreeable with discharge home. Asked to return for new or worsening symptoms. Patient agreeable and discharged home in stable condition. Impression: 1. Weakness 2. Hypokalemia 3. UTI ED Disposition - Plan for ED Patient: Disposition: Home or Assisted Living Instructions: ED Bladder Infection, Female (Adult), ED Hypokalemia Prescriptions: Ciprofloxacin [Cipro] 500 mg PO BID #6 tab Prescription Printed Referrals: Jewell Bowens DO [Primary Care Provider] - 2 Days Geronimo Keene MD [STAFF PHYSICIAN] - 5-7 Days
[2020-11-01 10:35] VITALS: BP 122/63; PULSE 82; RESP 15; TEMP 36.6; O2SAT 98
[2020-11-01 10:38] LABS: Absolute Lymphocyte Count 1.79 X10^3/uL (0.83-4.51); Absolute Neutrophil Count 5.7 X10^3/uL (2.0-7.7); Basophil# 0.05 X10^3/uL; Basophil% 0.6 % (0-1); Eosinophil# 0.17 X10^3/uL; Eosinophils% 2.1 % (0-5); Hematocrit 31.6 % (37-47); Lymphocyte # 1.79 X10^3/ul (4.0); Lymphocyte % 21.7 % (19-41); Mean Corp Hgb Conc 31.6 g/dL (32-36); Mean Corpuscular Hgb 28.6 pg (27.0-32.0); Mean Corpuscular Volume 90.3 fL (81-99); Mean Platelet Vol. 10.9 fl (6.2-12.0); Monocyte# 0.52 X10^3/uL; Monocyte% 6.3 % (0-10); NRBC Flagged by Analyzer 0 % (0-5); Neutrophil # 5.66 X10^3/uL (2.7-7.7); Neutrophil % 68.8 % (47-70); Platelet Count 257 K/mm3 (150-450); RBC Distribution Width SD 45.4 fl (35.1-43.9); White Blood Count 8.2 K/mm3 (4.4-11.0)
--- NOTE | 2020-11-01 10:45 | RAD_ITS ---
STUDY: X-RAY CHEST REASON FOR EXAM: Female, 70 years old. Increased sob, weakness and abd pain TECHNIQUE: Single AP portable view of the chest. COMPARISON: Comparison is made with prior study dated 04/07/2020. FINDINGS: EKG electrodes are seen. Surgical clips are seen in the left axillary region. The lungs are clear and expanded. There is no demonstrated pleural abnormality. Normal size heart. Normal mediastinum and mame. Normal visualized pulmonary arteries. There is atherosclerotic tortuosity of the aortic arch and descending thoracic aorta. Normal visualized thoracic spine. Normal visualized ribs, clavicles, and shoulders. Questionable minimal amount of free air beneath the right hemidiaphragm. RAD/Chest 1 View (Portable) IMPRESSION: The lungs are clear. Questionable small amount of free air beneath the right hemidiaphragm. Electronically Signed: Jonathon Crook MD at 11:10 EST , Service support ,
[2020-11-01 11:00] LABS: ALB/GLOB Ratio 0.7 RATIO (0.9-2.4); AST(SGOT) 25 U/L (15-37); Alanine Aminotransfer ALT/SGPT 25 U/L (13-56); Albumin, Serum 2.3 g/dL (3.2-5.0); Alkaline Phosphatase 124 U/L (45-117); Anion Gap 10 (5-15); BUN 46 mg/dL (7-18); Calcium,Total 9.8 mg/dL (8.5-10.1); Chloride 107 mmol/L (98-107); Creatinine, Serum 5.75 mg/dL (0.55-1.02); EST Glomerular Filtration Rate 8 mL/min (>60); Est Glom Filt Rate - Afr Amer 9 mL/min (>60); Estimated Creatinine Clearance 8.73 ml/min; Globulin 3.2 g/dL (2.2-4.2); Glucose 92 mg/dL (74-106); Potassium 2.9 mmol/L (3.5-5.1); Protein, Total 5.5 g/dL (6.4-8.2); Sodium Level 141 mmol/L (136-145)
[2020-11-01 11:40] LABS: Magnesium 1.8 mg/dL (1.6-2.6)
--- NOTE | 2020-11-01 11:53 | NURSING ---
[address] LOYA'S OFFICE. NO ONE ANSWERED
[2020-11-01] MEDS: Potassium Chloride 10mEq/100mL 10 MEQ/100 ML IV.SOLN. 100 MEQ IV BOLUS ×4 (12:29→15:55)
[2020-11-01 12:34] VITALS: BP 131/64; PULSE 74; RESP 20; O2SAT 98
[2020-11-01 14:23] VITALS: BP 126/71; PULSE 75; RESP 21; O2SAT 96
[2020-11-01 14:59] LABS: Mucous, Urine 0 SEEN /hpf (<or=2+); Red Blood Cells-Urine 0 SEEN /hpf (0-5)
[2020-11-01 15:12] LABS: Color, Urine Yellow (Yellow); Glucose, Dipstick Normal (Normal); Ketone-Dipstick Negative (Negative); Leukocyte Esterase-Dipstick 500 /ul (Negative); Nitrite-Dipstick Negative (Negative); Occult Blood-Urine 25 /ul (Negative); Protein-Dipstick 30 mg/dl (Negative); Urine Clarity Clear (Clear); Urine Urobilinogen Normal (Normal)
[2020-11-01 15:15] LABS: Urine Bilirubin Dipstick 1 mg/dL (Negative)
[2020-11-01 15:17] LABS: Bacteria RARE /hpf (None Seen); Squamous Epithelial Cells - UA 0-5 SEEN /hpf (5-10); White Blood Cells 5-10 SEEN /hpf (0-5)
[2020-11-01] MEDS: Ciprofloxacin 250 MG Tablet PO (16:29)
[2020-11-01 17:04] VITALS: BP 137/65; PULSE 77; RESP 14; O2SAT 98
== END 2020-11-01 17:21 | disposition home or self-care (01) ==
PROVIDERS: Emergency Provider Emergency Medicine; PCP Family Medicine
DX: R53.1 Weakness (principal); E87.6 Hypokalemia; N39.0 Urinary tract infection, site not specified; Z99.2 Dependence on renal dialysis
CPT/HCPCS: 71045; 74176; 80053; 81001; 83735; 84484; 85025; 87086; 87088; 87426; 93005; 96365; 96366; 99284; J7030; A4216

== ENCOUNTER 2020-11-10 19:29 | Emergency (ER) | payer MEDICARE, OTHER, SELFPAY ==
[2020-11-10 19:32] VITALS: BP 129/59; PULSE 84; RESP 16; TEMP 36.6; O2SAT 100; BMI 24.1
--- NOTE | 2020-11-10 19:42 | ED.RN ---
PHONE [phone] FOR DAUGHTER BROOKE
[2020-11-10 21:05] LABS: Absolute Lymphocyte Count 2.11 X10^3/uL (0.83-4.51); Absolute Neutrophil Count 6.1 X10^3/uL (2.0-7.7); Basophil# 0.04 X10^3/uL; Basophil% 0.4 % (0-1); Eosinophil# 0.18 X10^3/uL; Hematocrit 28.9 % (37-47); Hemoglobin 9.2 g/dL (12.0-15.0); Lymphocyte # 2.11 X10^3/ul (4.0); Lymphocyte % 23.2 % (19-41); Mean Corp Hgb Conc 31.8 g/dL (32-36); Mean Corpuscular Volume 91.2 fL (81-99); Mean Platelet Vol. 11.4 fl (6.2-12.0); Monocyte# 0.66 X10^3/uL; Monocyte% 7.2 % (0-10); NRBC Flagged by Analyzer 0 % (0-5); Neutrophil # 6.08 X10^3/uL (2.7-7.7); Neutrophil % 66.8 % (47-70); Platelet Count 230 K/mm3 (150-450); RBC Distribution Width CV 14.3 % (11.6-14.6); RBC Distribution Width SD 47.6 fl (35.1-43.9); Red Blood Count 3.17 M/mm3 (4.2-5.4); White Blood Count 9.1 K/mm3 (4.4-11.0)
[2020-11-10 21:20] VITALS: BP 125/73; PULSE 67; RESP 20; TEMP 36.6; O2SAT 98
[2020-11-10 21:21] LABS: Anion Gap 10 (5-15); BUN 42 mg/dL (7-18); Chloride 108 mmol/L (98-107); Creatinine, Serum 6.04 mg/dL (0.55-1.02); EST Glomerular Filtration Rate 7 mL/min (>60); Est Glom Filt Rate - Afr Amer 9 mL/min (>60); Estimated Creatinine Clearance 8.31 ml/min; Glucose 101 mg/dL (74-106); Potassium 3.2 mmol/L (3.5-5.1); Sodium Level 138 mmol/L (136-145)
--- NOTE | 2020-11-10 22:07 | EKG12_ITS ---
Test Reason : SOB Blood Pressure : / mmHG Vent. Rate : 065 BPM Atrial Rate : 065 BPM P-R Int : 138 ms QRS Dur : 094 ms QT Int : 428 ms P-R-T Axes : 031 015 051 degrees QTc Int : 445 ms Normal sinus rhythm Normal ECG Confirmed by RICH SHERIFF, MANISH ([id number]), video tape editor ANTONIA CARRION ([id number]) on 11/15/2020 11:11:43 AM Referred By: QUOC Confirmed By:TAMKIA VILLANUEVA MD
--- NOTE | 2020-11-10 22:20 | RAD_ITS ---
STUDY: X-RAY CHEST REASON FOR EXAM: Female, 70 years old. Shortness of breath. TECHNIQUE: Frontal view of the chest COMPARISON: 11/01/20 FINDINGS: The lungs are clear. There are no pleural effusions. There is no pneumothorax. The heart is normal in size. The visualized osseous structures are within normal limits. RAD/Chest 1 View IMPRESSION: No acute thoracic pathology. Electronically Signed: Darryl Neff MD at 22:42 EST Tel , Service support ,
[2020-11-10 22:38] LABS: BNP,B-Type NATRIURETIC PEPTIDE 16.1 pg/mL (0-100)
[2020-11-10 22:39] LABS: Magnesium 1.8 mg/dL (1.6-2.6)
[2020-11-10 23:00] VITALS: BP 125/73; PULSE 64; O2SAT 98
[2020-11-10] MEDS: Potassium Chloride 10mEq/100mL 10 MEQ/100 ML IV.SOLN. 100 MEQ IV BOLUS (23:23)
--- NOTE | 2020-11-10 23:32 | ED.VIS.GEN ---
History of Present Illness Chief Complaint: Abd Pain Informant: Patient Onset: Today Context: Gradual Onset Timing: Intermittent Narrative: Patient is a 70-year-old female with history of end-stage renal disease on peritoneal dialysis is presenting with discomfort, weakness and low potassium. Patient states she just has been feeling well for some time and saw her urologist, remote inpatient coder and PCP today. Urologist, Dr. Kwok, checked her urine who states she did not have any infection and was not concerned for further kidney stones. Dr. Arevalo, her remote inpatient coder checked labs and found her potassium to be low. She sent to the ER for further evaluation of this. She was also additionally supposed to have an EKG went to another ER to have this done per her PCP. Patient had to wait for hours because of high acuity and decided come to [place] [facility] instead. Patient states she has some mild pelvic cramping but denies any other discomfort. She was recently treated for a bladder infection with Cipro 1 week ago. She was seen in the ER for abdominal discomfort on the and had a CT at that time. Lab work and CT were unremarkable patient was discharged home with antibiotics for UTI and outpatient follow-up. Patient states she is been weak with no energy. She had some slight shortness of breath exertion. She denies any significant swelling of her lower extremities. No reported fever, chills no other complaints at this time. Patient has had normal peritoneal dialysis sessions and denies any discoloration of her dialysate. She did not do peritoneal dialysis today because she had multiple doctors appointments. Past Medical History - Allergies and Home Meds Allergies/Adverse Reactions: Allergies adhesive tape Allergy (Verified 11/01/20 10:09) Rash amoxicillin [From Augmentin] Allergy (Verified 11/01/20 10:09) Swelling cephalexin [From Keflex] Allergy (Verified 11/01/20 10:09) Swelling clavulanic acid [From Augmentin] Allergy (Verified 11/01/20 10:09) Swelling latex Allergy (Verified 11/01/20 10:09) Rash Penicillins [PCN] Allergy (Verified 11/01/20 10:09) Swelling sulfamethoxazole [From Bactrim] Allergy (Verified 11/01/20 10:09) rash,swellling, itching trimethoprim [From Bactrim] Allergy (Verified 11/01/20 10:09) rash,swellling, itching wal[place] Allergy (Verified 11/10/20 19:32) Itching [place] Allergy (Uncoded 11/10/20 19:32) Itching Primary Care Physician: Jewell Bowens DO [Primary Care Provider] - Past Medical History: - - Hypertension, end-stage renal disease on peritoneal dialysis, kidney stones Surgical History: appendectomy, hysterectomy, - - 30 years ago 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, multiple cystoscopies due to kidney stones Lives: Alone Smoking Status: Never smoker - Family History Maternal Family History: Reports: No pertinent history Paternal Family History: Reports: No pertinent history Review of Systems General: Reports: Malaise. Denies: Chills, Fever, Sweats Eyes: Denies: Visual changes - bilaterally, Diplopia ENT: Denies: Rhinorrhea, Sore throat Cardiovascular: Denies: Chest pain, Palpitations Respiratory: Reports: Dyspnea. Denies: Cough, Dyspnea on exertion Gastrointestinal: Reports: Abdominal pain. Denies: Nausea, Vomiting, Diarrhea, Melena, Hematochezia Genitourinary: Denies: Dysuria, Hematuria, Frequency Musculoskeletal: Denies: Back pain, Extremity Pain Skin: Denies: Rash, Wounds Neurological: Denies: Headache, Weakness, Numbness Physical Exam Vital Signs/Narrative: Vital Signs Temp Pulse Resp BP Pulse Ox 11/10/20 21:20 97.9 F 67 20 H 125/73 H 98 Inital Vital Signs reviewed: Yes General: Well nourished, Well developed, No Acute Distress Head: Normocephalic, Atraumatic Eyes: Perrl, EOMI ENT: Moist mucous membranes, No rhinorrhea Neck: Supple, Nontender, No JVD Cardiovascular: Regular rate, Regular rhythm, No murmurs Respiratory: No distress, CTA bilaterally, Chest nontender Abdomen: Soft, Nontender, Nondistended, Normal bowel sounds, - - Peritoneal dialysis catheter in place.. Negative for: Guarding, Rebound tenderness Back: Nontender, Normal Inspection. Negative for: CVA tenderness Extremities: Nontender, No edema. Negative for: Edema, Calf Tenderness Skin: Normal color, No rash Neurological: Alert, Oriented x3, Cranial nerves II-XII grossly intact, Normal Strength, Normal Sensation Psychological: Normal affect, Normal Mood Diagnostic/Tx/Re-eval Chest X-Ray - ED: 1 View, Read by ED Physician, Read by Radiologist, No Acute Disease Clinical Impression(s) from Imaging Studies Chest X-Ray 11/10/20 22:20 IMPRESSION: No acute thoracic pathology. Electronically Signed: Darryl Neff MD at 22:42 EST Tel , Service support , Laboratory Data 11/10/20 11/10/20 11/10/20 20:58 20:58 20:58 WBC 9.1 RBC 3.17 L Hgb 9.2 L Hct 28.9 L MCV 91.2 MCH 29.0 MCHC 31.8 L RDW Std Deviation 47.6 H RDW Coeff of [place] 14.3 Plt Count 230 MPV 11.4 Immature Gran % (Auto) 0.400 Neut % (Auto) 66.8 Lymph % (Auto) 23.2 [place] % (Auto) 7.2 Eos % (Auto) 2.0 Baso % (Auto) 0.4 Absolute Neuts (auto) 6.1 Absolute Lymphs (auto) 2.11 Nucleated RBC % 0 Sodium 138 Potassium 3.2 L Chloride 108 H Carbon Dioxide 20.0 L Anion Gap 10 BUN 42 H Creatinine 6.04 H Estim Creat Clear Calc 8.31 Est GFR (MDRD) Af Amer 9 L Est GFR (MDRD) Non-Af 7 L BUN/Creatinine Ratio 7.0 L Glucose 101 Calcium 9.0 Magnesium 1.8 Troponin I < 0.015 B-Natriuretic Peptide 11/10/20 20:58 WBC RBC Hgb Hct MCV MCH MCHC RDW Std Deviation RDW Coeff of [place] Plt Count MPV Immature Gran % (Auto) Neut % (Auto) Lymph % (Auto) [place] % (Auto) Eos % (Auto) Baso % (Auto) Absolute Neuts (auto) Absolute Lymphs (auto) Nucleated RBC % Sodium Potassium Chloride Carbon Dioxide Anion Gap BUN Creatinine Estim Creat Clear Calc Est GFR (MDRD) Af Amer Est GFR (MDRD) Non-Af BUN/Creatinine Ratio Glucose Calcium Magnesium Troponin I B-Natriuretic Peptide 16.1 - Medical Decision Making Patient is evaluated for feeling generally weak and having low potassium. She was seen in the ER 8 days ago for abdominal discomfort. At that time she had a CT of the abdomen which not show any acute process. Patient's abdomen is soft and nontender. At this time I do not suspect SBP. Did recheck her potassium is 3.2. Patient is given 20 mEq of IV potassium and 40 mEq of oral potassium. Magnesium is normal. She is not have any other findings visual merchandising assistant with infection or other electrolyte normality. I did check troponin and BNP which were normal. Discussed the case with her remote inpatient coder who was agreeable with potassium replacement and would like her to be started on 40 mEq daily of potassium and he will follow-up outpatient with this. Patient states she is feeling better in the ER is amenable with this plan. Patient is counseled on signs and symptoms requiring return to the emergency room. Patient verbalizes agreement and understand this plan. Patient discharged home in stable and improved condition. ED Disposition - Plan for ED Patient: Disposition: Home or Assisted Living Diagnosis: Hypokalemia Instructions: ED Abdominal Pain Unkn Cause Fem, ED Hypokalemia Prescriptions: Potassium Chloride [K-Dur] 40 meq PO DAILY #14 tab Prescription Printed Referrals: Jewell Bowens DO [Primary Care Provider] - Geronimo Keene MD [STAFF PHYSICIAN] -
[2020-11-11] MEDS: Potassium Chloride 10mEq/100mL 10 MEQ/100 ML IV.SOLN. 100 MEQ IV BOLUS (00:22)
[2020-11-11 01:00] VITALS: BP 136/63; PULSE 74; RESP 18; O2SAT 99
== END 2020-11-11 01:40 | disposition home or self-care (01) ==
PROVIDERS: Emergency Provider Emergency Medicine; PCP Family Medicine
DX: E87.6 Hypokalemia (principal); Z99.2 Dependence on renal dialysis; N18.6 End stage renal disease; Z87.442 Personal history of urinary calculi; Z90.710 Acquired absence of both cervix and uterus
CPT/HCPCS: 71045; 80048; 83735; 83880; 84484; 85025; 93005; 96365; 99285; J7030; A4216

== ENCOUNTER 2021-12-17 11:09 | Inpatient (IN) | payer MEDICARE, OTHER, SELFPAY ==
[2021-12-17] VITALS (14 sets, daily range): BP systolic 107–159; BP diastolic 62–83; PULSE 74–97; RESP 11–18; TEMP 36.6–37.2; O2SAT 91–100; BMI 20.7; BMI 21.6
--- NOTE | 2021-12-17 11:39 | CT_ITS ---
STUDY: CT ABDOMEN AND PELVIS WITHOUT CONTRAST REASON FOR EXAM: Female, 71 years old. Rt flank pain RADIATION DOSAGE (If Supplied By Facility): CTDIvol = ( 6.81 ) mGy, DLP = ( 343.68 ) mGycm TECHNIQUE: Transaxial images were obtained from the dome of the diaphragm to the symphysis pubis without oral contrast, and without intravenous contrast. Sagittal and coronal images were reconstructed. Individualized dose optimization techniques were used for this CT. COMPARISON: A 2020 CT scan abdomen and pelvis FINDINGS: Is visualized bronchiectasis in the right greater than left lung. The visualized coronary calcifications Normal liver. There is a gallstone in the gallbladder measuring 1.4 cm stable since prior study. Normal spleen. Normal pancreas. Normal bilateral adrenal glands. There is right renal atrophy right renal cortical thinning and moderate to severe right hydronephrosis. There are multiple calcifications in the right kidney. There is a stone in the right proximal ureter measuring 1.4 x 1.1 x 0.9 cm. No further stones are seen along the course of the right ureter. There is moderate left renal atrophy. There is a focus of 2 left renal cysts collectively measuring 3.3 x 3.5 cm. There are multiple stones left kidney without hydronephrosis. There is a smaller upper pole exophytic cyst measuring 6 mm. There is a small hiatal hernia. There is tiny visualized small bowel diverticula. There is abundant stool in the colon. There is tension of the sigmoid colon. There is wall thickening of the sigmoid colon. The appendix is not seen with certainty. There is a visualized left lower quadrant tube with coiled appearance within the pelvis compatible with a peritoneal dialysis catheter. The aorta is partially calcified Normal inferior vena cava. Normal retroperitoneum. The bladder is partially decompressed the wall is thickened measuring up to 1.0 cm. There is a mildly inhomogeneous appearance of the uterus which may have a right-sided fibroid at the fundus measuring 2.1 x 2.3 cm. This is unchanged since prior study. There is minimal amount of free fluid in the pelvis. There are dense small vessel calcifications including the superficial and profundus arteries. At L3-L4 there is severe disc space narrowing broad disc osteophyte facet arthropathy moderate neural foraminal narrowing moderate central stenosis. At L4-L5 there is severe neural foramina narrowing severe central stenosis facet arthropathy. At L5-S1 there is retrolisthesis narrowing of the left neural foramen. There is a suggestion of prior injury to the right side ischial tuberosity. CT/Abdomen/Pelvis without Cont IMPRESSION: Moderate bilateral renal atrophy. Moderate to severe right hydronephrosis secondary to an obstructing stone proximal right ureteral stone measuring 1.4 x 1.1 x 1.9 cm. Bilateral renal stones. Coronary artery calcification. Minimal hiatal hernia. Wall thickening of the sigmoid colon and rectum could consider proctitis mild colitis. Peritoneal catheter. Minimal free fluid. Advanced degenerative change of the thoracolumbar spine especially L3-L4 L4-L5. Electronically Signed: Leigh Lea MD at 12:52 EST Reading Location ID and State: [facility] / MD Tel , Service support ,
--- NOTE | 2021-12-17 11:41 | EKG12_ITS ---
Test Reason : Blood Pressure : / mmHG Vent. Rate : 087 BPM Atrial Rate : 087 BPM P-R Int : 122 ms QRS Dur : 072 ms QT Int : 368 ms P-R-T Axes : 034 021 060 degrees QTc Int : 442 ms Normal sinus rhythm Normal ECG Confirmed by ESTHELA PINTO MD ([id number]), editorial assistant ANTONIA CARRION ([id number]) on 12/19/2021 10:42:00 AM Referred By: KAEL Confirmed By:ESTHELA PINTO MD
[2021-12-17] MEDS: Morphine 2 MG/ML Syringe IV ×3 (11:45→22:20)
[2021-12-17 11:51] LABS: Absolute Lymphocyte Count 0.44 X10^3/uL (0.83-4.51); Absolute Neutrophil Count 15.6 X10^3/uL (2.0-7.7); Basophil# 0.04 X10^3/uL; Basophil% 0.2 % (0-1); Eosinophil# 0.03 X10^3/uL; Eosinophils% 0.2 % (0-5); Hematocrit 38.3 % (37-47); Hemoglobin 12.2 g/dL (12.0-15.0); Lymphocyte # 0.44 X10^3/ul (0.83-4.51); Lymphocyte % 2.6 % (19-41); Mean Corp Hgb Conc 31.9 g/dL (32-36); Mean Corpuscular Hgb 28.6 pg (27.0-32.0); Mean Corpuscular Volume 89.9 fL (81-99); Mean Platelet Vol. 10.5 fl (6.2-12.0); Monocyte# 0.95 X10^3/uL; Monocyte% 5.5 % (0-10); NRBC Flagged by Analyzer 0 % (0-5); Neutrophil # 15.61 X10^3/uL (2.7-7.7); Neutrophil % 90.9 % (47-70); POSITIVE DIFFERENTIAL YES; Platelet Count 314 K/mm3 (150-450); RBC Distribution Width CV 14.2 % (11.6-14.6); RBC Distribution Width SD 46.4 fl (35.1-43.9); Red Blood Count 4.26 M/mm3 (4.2-5.4); White Blood Count 17.2 K/mm3 (4.4-11.0)
[2021-12-17 11:53] LABS: Differential Indicated SCAN CRITERIA MET
[2021-12-17] MEDS: Ondansetron 4 MG/2 ML Vial IV (11:57)
[2021-12-17 12:02] LABS: Mucous, Urine 0 SEEN /hpf (<or=2+); Squamous Epithelial Cells - UA 0 SEEN /hpf (5-10)
[2021-12-17 12:06] LABS: Anion Gap 10 (5-15); BUN 71 mg/dL (7-18); BUN/Creat Ratio 11.2 RATIO (10-20); Chloride 106 mmol/L (98-107); Creatinine, Serum 6.35 mg/dL (0.55-1.02); EST Glomerular Filtration Rate 7 mL/min (>60); Est Glom Filt Rate - Afr Amer 8 mL/min (>60); Estimated Creatinine Clearance 7.57 ml/min; Glucose 132 mg/dL (74-106); Potassium 4.6 mmol/L (3.5-5.1); Sodium Level 137 mmol/L (136-145)
[2021-12-17 12:19] LABS: Color, Urine Yellow (Yellow); Glucose, Dipstick 100 mg/dl (Normal); Ketone-Dipstick Negative (Negative); Leukocyte Esterase-Dipstick 500 /ul (Negative); Nitrite-Dipstick Negative (Negative); Occult Blood-Urine 150 /ul (Negative); Protein-Dipstick 100 mg/dl (Negative); Urine Bilirubin Dipstick Negative (Negative); Urine Clarity Clear (Clear); Urine Urobilinogen Normal (Normal); Urine pH 6.5 (5.0 - 8.0)
[2021-12-17 12:20] LABS: Platelet Estimate ADEQUATE (ADEQ)
[2021-12-17 12:21] LABS: Red Cell Morphology NORM C+C NORMAL (NORM C&C)
[2021-12-17 12:27] LABS: Bacteria 2+ /hpf (None Seen); Red Blood Cells-Urine 5-10 SEEN /hpf (0-5); White Blood Cells 10-25 SEEN /hpf (0-5)
--- NOTE | 2021-12-17 13:36 | EX.ED.DYSGE1 ---
HPI <MONICA VELEZ - Last Filed: 12/17/21 13:47> History of Present Illness Chief Complaint: Abd Pain Informant: patient Onset/Context/Timing Onset: Yesterday Narrative Narrative: Patient presents secondary to right flank pain that started yesterday with radiation to the right abdomen. Patient also reports nausea and vomiting with this with emesis x3 today. Patient reports chills. Patient performs home peritoneal dialysis, which was last done last night. Patient states last bowel movement was yesterday morning which was baseline diarrhea. Patient reports history of kidney stones. Prior similar symptoms: Yes PFSH <MONICA VELEZ - Last Filed: 12/17/21 13:47> [facility] Medical History Acute kidney injury superimposed on CKD Arterial steal syndrome Chronic renal failure, stage 5 ESRD (end stage renal disease) on dialysis Hypertension Renal calculi Superficial thrombophlebitis of arm Urinary tract infection Vascular dialysis catheter in place Home Medications ciprofloxacin HCl 500 mg PO BID #6 tab 11/01/20 [Rx Last Taken Unknown] ferric citrate 2 tab PO TID 11/01/20 [History Last Taken Unknown] potassium chloride 40 meq PO DAILY #14 tab 11/10/20 [Rx Last Taken Unknown] Allergy/AdvReac Type Severity Reaction Status Date / Time adhesive tape Allergy Rash Verified 12/17/21 11:11 amoxicillin [From Augmentin] Allergy Swelling Verified 12/17/21 11:11 cephalexin [From Keflex] Allergy Swelling Verified 12/17/21 11:11 clavulanic acid Allergy Swelling Verified 12/17/21 11:11 [From Augmentin] latex Allergy Rash Verified 12/17/21 11:11 Penicillins [PCN] Allergy Swelling Verified 12/17/21 11:11 sulfamethoxazole Allergy rash,swellling, Verified 12/17/21 11:11 [From Bactrim] itching trimethoprim [From Bactrim] Allergy rash,swellling, Verified 12/17/21 11:11 itching walnut Allergy Itching Verified 12/17/21 11:11 GRE[place] Allergy Itching Uncoded 12/17/21 11:11 Family History Mother Heart disease Diabetes Hypertension Surgical History history Left AV Fistula Creation (~05/03/20) S/P bypass gastroenterostomy S/P hemorrhoidectomy Social History Smoking Status: Never smoker alcohol intake: never substance use type: does not use ROS <MONICA VELEZ - Last Filed: 12/17/21 13:47> ROS ED Constitutional Constitutional ED: Reports chills and subjective; Denies fever(s) Eyes Eyes: Denies blurry vision or diplopia ENT ENT ED: Denies ear pain, rhinorrhea or sore throat Cardiovascular Cardiovascular: Denies chest pain Respiratory/Chest Respiratory/Chest: Denies cough or dyspnea Gastrointestinal Gastrointestinal: Reports abdominal pain, diarrhea, nausea and vomiting Genitourinary Genitourinary ED: Denies dysuria, hematuria or urinary frequency Musculoskeletal Musculoskeletal: Denies myalgias Integumentary Denies rash Neurologic Neurologic: Denies headache(s) or weakness Psychiatric Psychiatric: Denies anxiety or depression Endocrine Endocrinology: Denies polydipsia or polyuria EXAM <MONICA VELEZ - Last Filed: 12/17/21 13:47> Physical Exam Const Vital Signs: 12/17/21 11:11 12/17/21 11:21 12/17/21 12:13 Temperature 98.3 F 98.7 F 98.7 F Temperature Source Temporal Temporal Temporal Pulse Rate 97 94 78 Respiratory Rate 16 11 L 14 Blood Pressure 142/75 H 143/75 H 134/72 H Blood Pressure Mean 97 97 92 Pulse Ox 99 98 97 Oxygen Delivery Method Room Air Room Air Room Air 12/17/21 13:13 Temperature 98.4 F Temperature Source Temporal Pulse Rate 89 Respiratory Rate 18 Blood Pressure 130/69 H Blood Pressure Mean 89 Pulse Ox 97 Oxygen Delivery Method Room Air Positive well nourished and well developed General Appearance ED: well developed HEENT Reports moist mucous membranes Eyes PERRL and EOMs intact bilaterally Neck no lymphadenopathy and supple Chest Wall inspection of chest normal Resp normal respiratory effort and clear to auscultation bilaterally Cardio regular rate and regular rhythm GI non-tender and non-distended Auscultation: hypoactive bowel sounds Palpation: soft Narrative: Patient produces urine as usual. Bladder / Kidney Exam: other Back/Spine General Back: CVA tenderness right Extremity normal to inspection General Extremety ED: Yes tenderness Neuro oriented x3 and CN's II-XII intact bilaterally Sensorium / Orientation: alert Psych mental status grossly normal Skin no rashes or lesions noted <Dr. Regina Black MD - Last Filed: 12/17/21 13:53> Physical Exam Const Vital Signs: 12/17/21 11:11 12/17/21 11:21 12/17/21 12:13 Temperature 98.3 F 98.7 F 98.7 F Temperature Source Temporal Temporal Temporal Pulse Rate 97 94 78 Respiratory Rate 16 11 L 14 Blood Pressure 142/75 H 143/75 H 134/72 H Blood Pressure Mean 97 97 92 Pulse Ox 99 98 97 Oxygen Delivery Method Room Air Room Air Room Air 12/17/21 13:13 Temperature 98.4 F Temperature Source Temporal Pulse Rate 89 Respiratory Rate 18 Blood Pressure 130/69 H Blood Pressure Mean 89 Pulse Ox 97 Oxygen Delivery Method Room Air MDM <MONICA LANDEROSPARESH - Last Filed: 12/17/21 13:47> MDM MDM Narrative Medical decision making narrative: Patient given morphine for pain, Zofran for nausea. CBC, BMP, EKG, and urinalysis ordered. Non contract abdomen and pelvis CT ordered. Lab Data Labs: Laboratory Results - last 24 hr 12/17/21 12/17/21 12/17/21 11:40 11:40 11:56 WBC 17.2 H RBC 4.26 Hgb 12.2 Hct 38.3 MCV 89.9 MCH 28.6 MCHC 31.9 L RDW Std Deviation 46.4 H RDW Coeff of [place] 14.2 Plt Count 314 MPV 10.5 Immature Gran % (Auto) 0.600 Neut % (Auto) 90.9 H Lymph % (Auto) 2.6 L [place] % (Auto) 5.5 Eos % (Auto) 0.2 Baso % (Auto) 0.2 Absolute Neuts (auto) 15.6 H Absolute Lymphs (auto) 0.44 L Nucleated RBC % 0 Platelet Estimate ADEQUATE RBC Morphology NORM C+C Sodium 137 Potassium 4.6 Chloride 106 Carbon Dioxide 21.0 Anion Gap 10 BUN 71 H Creatinine 6.35 H Estim Creat Clear Calc 7.57 Est GFR (MDRD) Af Amer 8 L Est GFR (MDRD) Non-Af 7 L BUN/Creatinine Ratio 11.2 Glucose 132 H Calcium 9.0 Urine Color Yellow Urine Clarity Clear Urine pH 6.5 Ur Specific [place] 1.010 Urine Protein 100 H Urine Glucose (UA) 100 H Urine Ketones Negative Urine Occult Blood 150 H Urine Nitrite Negative Urine Bilirubin Negative Urine Urobilinogen Normal Ur Leukocyte Esterase 500 H Urine RBC 5-10 SEEN Urine WBC 10-25 SEEN Ur Squamous Epith Cells 0 SEEN Urine Bacteria 2+ Urine Mucus 0 SEEN Radiography Diagnostic Testing: Clinical Impression(s) from Imaging Studies Abdomen/Pelvis CT 12/17/21 11:39 IMPRESSION: Moderate bilateral renal atrophy. Moderate to severe right hydronephrosis secondary to an obstructing stone proximal right ureteral stone measuring 1.4 x 1.1 x 1.9 cm. Bilateral renal stones. Coronary artery calcification. Minimal hiatal hernia. Wall thickening of the sigmoid colon and rectum could consider proctitis mild colitis. Peritoneal catheter. Minimal free fluid. Advanced degenerative change of the thoracolumbar spine especially L3-L4 L4-L5. Electronically Signed: Leigh Lea MD at 12:52 EST Reading Location ID and State: [facility] / [place] Tel , Service support , Treatment and Re-Evaluation Comments:: On review of lab results, patient has an elevated white blood cell count at 17.2. And and urinalysis shows evidence of infection. CT shows an obstructing proximal right ureteral stone measuring 1.4 x 1.1 x 1.9 cm with moderate to severe hydronephrosis. Patient reports improvement in pain and nausea. Urine culture and Cipro IV ordered. Patient agreeable to admission. <Dr. Regina Black MD - Last Filed: 12/17/21 13:53> [facility] Lab Data Labs: Laboratory Results - last 24 hr 12/17/21 12/17/21 12/17/21 11:40 11:40 11:56 WBC 17.2 H RBC 4.26 Hgb 12.2 Hct 38.3 MCV 89.9 MCH 28.6 MCHC 31.9 L RDW Std Deviation 46.4 H RDW Coeff of [place] 14.2 Plt Count 314 MPV 10.5 Immature Gran % (Auto) 0.600 Neut % (Auto) 90.9 H Lymph % (Auto) 2.6 L [place] % (Auto) 5.5 Eos % (Auto) 0.2 Baso % (Auto) 0.2 Absolute Neuts (auto) 15.6 H Absolute Lymphs (auto) 0.44 L Nucleated RBC % 0 Platelet Estimate ADEQUATE RBC Morphology NORM C+C Sodium 137 Potassium 4.6 Chloride 106 Carbon Dioxide 21.0 Anion Gap 10 BUN 71 H Creatinine 6.35 H Estim Creat Clear Calc 7.57 Est GFR (MDRD) Af Amer 8 L Est GFR (MDRD) Non-Af 7 L BUN/Creatinine Ratio 11.2 Glucose 132 H Calcium 9.0 Urine Color Yellow Urine Clarity Clear Urine pH 6.5 Ur Specific [place] 1.010 Urine Protein 100 H Urine Glucose (UA) 100 H Urine Ketones Negative Urine Occult Blood 150 H Urine Nitrite Negative Urine Bilirubin Negative Urine Urobilinogen Normal Ur Leukocyte Esterase 500 H Urine RBC 5-10 SEEN Urine WBC 10-25 SEEN Ur Squamous Epith Cells 0 SEEN Urine Bacteria 2+ Urine Mucus 0 SEEN Radiography Diagnostic Testing: Clinical Impression(s) from Imaging Studies Abdomen/Pelvis CT 12/17/21 11:39 IMPRESSION: Moderate bilateral renal atrophy. Moderate to severe right hydronephrosis secondary to an obstructing stone proximal right ureteral stone measuring 1.4 x 1.1 x 1.9 cm. Bilateral renal stones. Coronary artery calcification. Minimal hiatal hernia. Wall thickening of the sigmoid colon and rectum could consider proctitis mild colitis. Peritoneal catheter. Minimal free fluid. Advanced degenerative change of the thoracolumbar spine especially L3-L4 L4-L5. Electronically Signed: Leigh Lea MD at 12:52 EST Reading Location ID and State: [facility] / [place] Tel , Service support , Treatment and Re-Evaluation Comments:: Patient seen and evaluated with [employer] student. Patient with history of kidney stones and is on peritoneal dialysis. Patient reports right flank pain that started last evening and nausea and vomiting today. Patient lying in bed no acute distress. She is nontoxic-appearing. Head and neck examination unremarkable. Heart regular rate and rhythm. Lung sounds are clear. Abdomen is soft with mild right-sided tenderness. Hypoactive but present bowel sounds noted. No guarding or rebound. Lab work reveals leukocytosis with a white count of 17. Urinalysis does show infection with 10-25 white cells and 2+ bacteria. CT flank reveals a large right proximal ureter stone. Patient discussed with Dr. Kwok, her urologist. Patient is n.p.o. and plan will be to go to the OR for stent placement this weekend as soon as possible. Patient was given morphine and Zofran for pain and nausea control. This time she is resting comfortably. Urine culture has been sent and she was given a dose of IV Cipro. Patient discussed with hospitalist for admission. Discharge Plan Triage Chief Complaint: Abd Pain ED Provider: Regina Black Dx/Rx/DC Orders Clinical Impression: Calculus of proximal right ureter, UTI (urinary tract infection) Prescriptions: No Action ferric citrate 210 MG tablet 2 tab PO TID RF: 0 ciprofloxacin HCl 500 MG tablet 500 mg PO BID Qty: 6 RF: 0 potassium chloride 20 MEQ tablet 40 meq PO DAILY Qty: 14 RF: 0 Primary Care Provider: Jewell Bowens Referrals: Jewell Bowens DO [Primary Care Provider] - Disposition Disposition: Acute Care Hospital [facility]
--- NOTE | 2021-12-17 13:40 | NURSING ---
HOSPITALIST PAGED DR MURPHY FOR DR [id number]
--- NOTE | 2021-12-17 13:54 | NURSING ---
MED SURG [facility] UTI, KIDNEY STONE
--- NOTE | 2021-12-17 14:00 | PCM.HP.STD ---
Documented by User: Hao JORGE 12/17/21 14:23 HPI - General General Date of Admission: 12/17/21 Date of Service: 12/17/21 Chief Complaint: Right sided flank plain w/ fever HPI Narrative CHRISTIANO AWAD is a 71-year-old female who presents to the ED at [facility] on 12/17/2021 with a chief complaint of right-sided flank pain. Patient reports that yesterday she began to notice progressively worsening right-sided flank pain. Patient also endorses nausea and vomiting, but denies diarrhea. Patient denies fevers but also reports chills. Patient does also report burning with urination. Past medical history is significant for kidney stones, which have required lithotripsy in the past. Patient is known to Dr. Chapa. Past medical history is also significant for peritoneal dialysis for ESRD, which is done several times daily. Patient's vital signs in the ED are stable. CBC does demonstrate a leukocytosis at 17,000, hemoglobin is 12.2 and platelets are at 314,000. Electrolytes are normal on BMP, creatinine is 6.35 and BUN is 71. CT of the abdomen/pelvis is significant for moderate bilateral renal atrophy with moderate to severe right hydronephrosis secondary to an obstructing proximal right ureteral stone measuring 1.4 x 1.1 x 1.9 cm. UA demonstrates yellow clear urine with negative nitrites, 500 leukocyte esterase, 10-25 urine WBCs and 2+ bacteria. [facility] Medical History Acute kidney injury superimposed on CKD Arterial steal syndrome Chronic renal failure, stage 5 ESRD (end stage renal disease) on dialysis Hypertension Renal calculi Superficial thrombophlebitis of arm Urinary tract infection Vascular dialysis catheter in place Home Medications ciprofloxacin HCl 500 mg PO BID #6 tab 11/01/20 [Rx Last Taken Unknown] ferric citrate 2 tab PO TID 11/01/20 [History Last Taken Unknown] potassium chloride 40 meq PO DAILY #14 tab 11/10/20 [Rx Last Taken Unknown] Allergy/AdvReac Type Severity Reaction Status Date / Time adhesive tape Allergy Rash Verified 12/17/21 11:11 amoxicillin [From Augmentin] Allergy Swelling Verified 12/17/21 11:11 cephalexin [From Keflex] Allergy Swelling Verified 12/17/21 11:11 clavulanic acid Allergy Swelling Verified 12/17/21 11:11 [From Augmentin] latex Allergy Rash Verified 12/17/21 11:11 Penicillins [PCN] Allergy Swelling Verified 12/17/21 11:11 sulfamethoxazole Allergy rash,swellling, Verified 12/17/21 11:11 [From Bactrim] itching trimethoprim [From Bactrim] Allergy rash,swellling, Verified 12/17/21 11:11 itching walnut Allergy Itching Verified 12/17/21 11:11 [place] Allergy Itching Uncoded 12/17/21 11:11 Family History Mother Heart disease Diabetes Hypertension Father Dementia Surgical History H/O hernia repair history Left AV Fistula Creation (~05/03/20) S/P bypass gastroenterostomy S/P hemorrhoidectomy Social History Smoking Status: Never smoker alcohol intake: never substance use type: does not use ROS Constitutional Constitutional: Reports chills and fatigue; Denies anorexia, change in weight, fever(s), malaise, night sweats, weakness or other Eyes Eyes: Denies blurry vision, change in eye color, change in vision, discharge from eye(s), double vision, erythema, eye pain, loss of vision or other ENT HEENT: Denies abnormal hearing, dysphagia, ear pain, epistaxis, headache(s), hearing loss, nasal congestion, nasal discharge, post nasal drip, sinus pressure, sore throat or other Cardiovascular Cardiovascular: Denies chest pain, claudication, dyspnea on exertion, edema, lightheadedness, orthopnea, palpitations, paroxysmal nocturnal dyspnea, rapid heart rate, syncope or other Respiratory/Chest Respiratory/Chest: Denies cough, dyspnea, excessive phlegm production, hemoptysis, productive cough, shortness of breath at rest, shortness of breath with exertion, wheezing or other Gastrointestinal Gastrointestinal: Reports abdominal pain, nausea and vomiting; Denies coffee ground emesis, constipation, diarrhea, dyspepsia, hematemesis, hematochezia, loose stools, melena or other Genitourinary Genitourinary: Reports burning urination and urinary hesitancy; Denies difficulty urinating, dysuria, hematuria, nocturia, urinary frequency, urinary incontinence, urinary urgency or other Musculoskeletal Musculoskeletal: Denies arthralgias, back pain, joint pain, joint stiffness, joint swelling, myalgias, neck pain or other Neurologic Neurologic: Denies abnormal gait, abnormal speech, confusion, disequilibrium, dizziness, focal weakness, headache(s), numbness, paresthesias, seizure-like activity, seizures, syncope, tingling, tremor(s) or other Psychiatric Psychiatric: Denies anxiety, depression, homicidal ideation, suicidal ideation or other Endocrine Endocrinology: Denies change in body appearance, cold intolerance, excessive sweating, heat intolerance, polydipsia, polyuria or other Hematologic/Lymphatic Hematologic/Lymphatic: Denies anemia, easy bleeding, easy bruising, lymphadenopathy or other Allergic/Immunologic Allergic/Immunologic: Denies rhinitis, hives, eczemia, asthma or other Vital Signs Vital Signs Vital Signs: 12/17/21 11:11 12/17/21 11:21 12/17/21 12:13 Temperature 98.3 F 98.7 F 98.7 F Temperature Source Temporal Temporal Temporal Pulse Rate 97 94 78 Respiratory Rate 16 11 L 14 Blood Pressure 142/75 H 143/75 H 134/72 H Blood Pressure Mean 97 97 92 Pulse Ox 99 98 97 Oxygen Delivery Method Room Air Room Air Room Air 12/17/21 13:13 Temperature 98.4 F Temperature Source Temporal Pulse Rate 89 Respiratory Rate 18 Blood Pressure 130/69 H Blood Pressure Mean 89 Pulse Ox 97 Oxygen Delivery Method Room Air Weight Weight: 132 lb Body Mass Index (BMI) 20.7 Physical Exam Const alert and oriented x3 General Appearance: cooperative HEENT normocephalic, head/scalp atraumatic and hearing grossly normal bilaterally Eyes conjunctivae normal Neck no lymphadenopathy, supple and no JVD Resp normal respiratory effort, no retractions and no use of accessory muscles Cardio regular rate, regular rhythm and no JVD GI normal to inspection, nondistended, normoactive bowel sounds GI Narrative: Right sided flank pain. Extremity normal to inspection Peripheral Pulses: Yes pulses 2+ throughout Skin no rashes or lesions noted Neuro CN's II-XII intact bilaterally Psych affect normal Results Lab / Micro Data Result Diagrams: 12/17/21 11:40 12/17/21 11:40 Labs: Laboratory Results - last 24 hr 12/17/21 11:40: WBC 17.2 H, RBC 4.26, Hgb 12.2, Hct 38.3, MCV 89.9, MCH 28.6, MCHC 31.9 L, RDW Std Deviation 46.4 H, RDW Coeff of [place] 14.2, Plt Count 314, MPV 10.5, Immature Gran % (Auto) 0.600, Neut % (Auto) 90.9 H, Lymph % (Auto) 2.6 L, [place] % (Auto) 5.5, Eos % (Auto) 0.2, Baso % (Auto) 0.2, Absolute Neuts (auto) 15.6 H, Absolute Lymphs (auto) 0.44 L, Nucleated RBC % 0, Platelet Estimate ADEQUATE, RBC Morphology NORM C+C 12/17/21 11:40: Sodium 137, Potassium 4.6, Chloride 106, Carbon Dioxide 21.0, Anion Gap 10, BUN 71 H, Creatinine 6.35 H, Estim Creat Clear Calc 7.57, Est GFR (MDRD) Af Amer 8 L, Est GFR (MDRD) Non-Af 7 L, BUN/Creatinine Ratio 11.2, Glucose 132 H, Calcium 9.0 12/17/21 11:56: Urine Color Yellow, Urine Clarity Clear, Urine pH 6.5, Ur Specific [place] 1.010, Urine Protein 100 H, Urine Glucose (UA) 100 H, Urine Ketones Negative, Urine Occult Blood 150 H, Urine Nitrite Negative, Urine Bilirubin Negative, Urine Urobilinogen Normal, Ur Leukocyte Esterase 500 H, Urine RBC 5-10 SEEN, Urine WBC 10-25 SEEN, Ur Squamous Epith Cells 0 SEEN, Urine Bacteria 2+, Urine Mucus 0 SEEN Radiology Impression Abdomen/Pelvis CT 12/17/21 11:39 IMPRESSION: Moderate bilateral renal atrophy. Moderate to severe right hydronephrosis secondary to an obstructing stone proximal right ureteral stone measuring 1.4 x 1.1 x 1.9 cm. Bilateral renal stones. Coronary artery calcification. Minimal hiatal hernia. Wall thickening of the sigmoid colon and rectum could consider proctitis mild colitis. Peritoneal catheter. Minimal free fluid. Advanced degenerative change of the thoracolumbar spine especially L3-L4 L4-L5. Electronically Signed: Leigh Lea MD at 12:52 EST , Assessment & Plan Assessment/Plan (1) UTI (urinary tract infection): (2) Calculus of proximal right ureter: PLAN: Patient is a 71-year-old female who presents to the ED at [facility] on 12/17/2021 with a chief complaint of progressively worsening right-sided flank pain. Patient will be admitted for evaluation and management of obstructing right renal calculi. 1) obstructive right renal calculi CT of the abdomen/pelvis demonstrates Moderate bilateral renal atrophy. Moderate to severe right hydronephrosis secondary to an obstructing stone proximal right ureteral stone measuring 1.4 x 1.1 x 1.9 cm. Patient is known to Dr. Obrien and has a history of right renal calculi. Plan; admit to [facility], consult urology, CBC and CMP in a.m., as needed medications ordered. 2) abnormal UA UA on admission demonstrates yellow clear urine, negative nitrites, 500 leukocyte esterase, 10-25 urine WBCs and 2+ bacteria. Urine culture from 2018 showed Enterococcus facialis with sensitivities to ciprofloxacin. Plan; as above, continue ciprofloxacin, urine culture pending. 3) ESRD Patient is on peritoneal dialysis and follows with Dr. Keene. Will consult nephrology. CODE STATUS: DNRCC-A, no intubation. Advance care planning: Patient does have a living will and healthcare power of ip technology transactions attorney. Patient's daughter María Elena is to make decisions for patient in the event that patient cannot do so herself. DVT prophylaxis - Heparin Patient seen by Hao Mahmood PA-C, under the supervision of Dr. Redman. Time spent on patient care: 25 minutes. Documented by User: Dr. Marisela Redman MD 12/17/21 15:29 HPI - General General Date of Admission: 12/17/21 [facility] Medical History Acute kidney injury superimposed on CKD Arterial steal syndrome Chronic renal failure, stage 5 ESRD (end stage renal disease) on dialysis Hypertension Renal calculi Superficial thrombophlebitis of arm Urinary tract infection Vascular dialysis catheter in place Home Medications ciprofloxacin HCl 500 mg PO BID #6 tab 11/01/20 [Rx Last Taken Unknown] ferric citrate 2 tab PO TID 11/01/20 [History Last Taken Unknown] potassium chloride 40 meq PO DAILY #14 tab 11/10/20 [Rx Last Taken Unknown] Allergy/AdvReac Type Severity Reaction Status Date / Time adhesive tape Allergy Rash Verified 12/17/21 11:11 amoxicillin [From Augmentin] Allergy Swelling Verified 12/17/21 11:11 cephalexin [From Keflex] Allergy Swelling Verified 12/17/21 11:11 clavulanic acid Allergy Swelling Verified 12/17/21 11:11 [From Augmentin] latex Allergy Rash Verified 12/17/21 11:11 Penicillins [PCN] Allergy Swelling Verified 12/17/21 11:11 sulfamethoxazole Allergy rash,swellling, Verified 12/17/21 11:11 [From Bactrim] itching trimethoprim [From Bactrim] Allergy rash,swellling, Verified 12/17/21 11:11 itching walnut Allergy Itching Verified 12/17/21 11:11 [place] Allergy Itching Uncoded 12/17/21 11:11 Family History Mother Heart disease Diabetes Hypertension Father Dementia Surgical History H/O hernia repair history Left AV Fistula Creation (~05/03/20) S/P bypass gastroenterostomy S/P hemorrhoidectomy Social History Smoking Status: Never smoker alcohol intake: never substance use type: does not use Results Lab / Micro Data Result Diagrams: 12/17/21 11:40 12/17/21 11:40 Charges/Coding Addendum Addendum: This patient was seen in conjunction with LUISITO Cagle. I have independently interviewed and examined the patient and reviewed pertinent historical, laboratory, and other data. Please refer to LUISITO Cagle's note for his patient's presentation, findings, and recommendations. I have reviewed and his note and concur with his documentation 71-year-old female with past medical history of ESRD on peritoneal dialysis, history of kidney stone, hypertension who comes in with complaints of right flank pain that started at 2 AM on the day of admission. Patient denies any dysuria or frequency. Pain is severe, worse with movement. She denies any fever or chills. Her vitals in the ED were stable blood pressure 127/64, heart rate 95, SPO2 97, temperature 98.9. Her WBC count was 17.2, hemoglobin 12.2, platelet count 314, BMP was essentially stable except for BUN of 71, creatinine 6.35. UA was clear, negative nitrite, leukocyte 500, WBC 10-25, nitrite negative. CT of the abdomen and pelvis shows moderate bilateral renal atrophy, moderate to severe right hydronephrosis secondary to an obstructing stone proximal right ureter, 1.4 x 1.1 x 1.9. Bilateral renal stones. Physical Exam: Gen: Looks in some discomfort, not pale, not jaundiced CVS:HS I +II, regular, no murmurs RESP: Diminished at lung bases GI: Right flank pain, BS present and normal, soft, nontender, no palpable organs EXT:No edema ASSESSMENT: 1. Acute right kidney stone with moderate to severe hydronephrosis 2. Acute complicated UTI 3. ESRD on PD, several times a day 4. Hypertension Plan: Urology consulted from the ED, follow-up recommendations Nephrology consult Continue on IV Cipro Follow-up on urine cultures Time spent taking patient's history, physical examination, answering questions from patient and her daughter, coordinating patient's care, discussing with nursing and nephrology: 45 minutes Visit Charges Inpatient E&M: 99325 Init Hosp L3
--- NOTE | 2021-12-17 14:16 | NURSING ---
GOING TO OR DR DIAZ
[2021-12-17] MEDS: Ciprofloxacin 400 MG/200 ML BAG 200 MG IV (14:17)
[2021-12-17] MEDS: Lubricating Jelly 60 GM Tube 30 GM (15:09)
--- NOTE | 2021-12-17 15:15 | PCM.OPRPT ---
Problems Associated Problem List Diagnoses (1) Calculus of proximal right ureter: (2) UTI (urinary tract infection): (3) Renal calculi: Report of Operation Date of Procedure: 12/17/21 Pre-Operative Diagnosis: Right proximal ureteral calculus with hydronephrosis and urinary tract infection Post-Operative Diagnosis: Same Surgery/Procedure Performed:: Cystoscopy with right ureteral stent insertion Surgeon: Cristina Kwok Type of Anesthesia: MAC Estimated Blood Loss (mL): Less than Description of Procedure: The patient is a 71-year-old female with a long history of stones who developed nausea and vomiting with severe right flank pain at 2 AM this morning. By 10 AM she presented to the emergency department for evaluation and management. She was found to have a 1.4 cm obstructing right proximal ureteral calculus with hydronephrosis and a urinary tract infection. Informed consent was obtained and she agreed to proceed with surgical intervention with placement of a stent. The patient was taken to the operating room and placed on the operating room table. Anesthesia monitored the head, neck, airway, IV access and vital signs throughout the case. Once anesthesia was appropriately ministered the patient was placed into dorsal lithotomy position and was prepped and draped in usual sterile fashion. Using fluoroscopic visualization, the right ureteral orifice was intubated with a 0.035 Glidewire and extended all the way into the renal pelvis. A 6 [place] 26 cm JJ stent was then placed with good positioning in the renal pelvis as well as the urinary bladder. Cloudy urine began to exude from the right ureteral stent. The patient's bladder was emptied and the case was terminated. She was awakened and taken to the recovery room in good condition. There were no complications during this procedure. Grafts/Implants Used: 6 x 26 JJ stent Complications None Admit VTE Documentation VTE Present on Admission: Yes VTE Mechan Device Prophylaxis: SCD's VTE Pharm Prophylaxis ordered?: Yes
--- NOTE | 2021-12-17 15:18 | CON.PCM_ITS ---
Assessment & Plan Assessment/Plan (1) Calculus of proximal right ureter: (2) UTI (urinary tract infection): (3) Renal calculi: PLAN: To the operating room for cystoscopy and right ureteral stent insertion Admission following the procedure, nephrology has been consulted Continue antibiotics and await urine culture results Continue supportive care, okay for Hoover catheter if febrile HPI Consult Data Date of Consult: 12/17/21 HPI Narrative HPI Narrative: CHRISTIANO AWAD, is a 71 F who presented to the emergency room with uncontrolled right flank pain, nausea and vomiting. She was awoken at 2 AM with the symptoms. By 10 AM this morning she presented to the emergency room for further evaluation and management. She has had nothing to eat or drink since 9:00 last night. She has a longstanding history of stones and has had surgical intervention multiple times in the past. In the emergency room she was found to have an obstructing 1.4 cm right ureteral pelvic junction calculus along with other multiple right and left renal stones. Currently her pain is controlled after having been given medications. Her nausea still present but is improved. We discussed the risks, benefits and alternatives to the procedure and she agreed to proceed with stent insertion. Her daughter is present as well. [facility] Medical History Acute kidney injury superimposed on CKD Arterial steal syndrome Chronic renal failure, stage 5 ESRD (end stage renal disease) on dialysis Hypertension Renal calculi Superficial thrombophlebitis of arm Urinary tract infection Vascular dialysis catheter in place Home Medications ciprofloxacin HCl 500 mg PO BID #6 tab 11/01/20 [Rx Last Taken Unknown] ferric citrate 2 tab PO TID 11/01/20 [History Last Taken Unknown] potassium chloride 40 meq PO DAILY #14 tab 11/10/20 [Rx Last Taken Unknown] Allergy/AdvReac Type Severity Reaction Status Date / Time adhesive tape Allergy Rash Verified 12/17/21 11:11 amoxicillin [From Augmentin] Allergy Swelling Verified 12/17/21 11:11 cephalexin [From Keflex] Allergy Swelling Verified 12/17/21 11:11 clavulanic acid Allergy Swelling Verified 12/17/21 11:11 [From Augmentin] latex Allergy Rash Verified 12/17/21 11:11 Penicillins [PCN] Allergy Swelling Verified 12/17/21 11:11 sulfamethoxazole Allergy rash,swellling, Verified 12/17/21 11:11 [From Bactrim] itching trimethoprim [From Bactrim] Allergy rash,swellling, Verified 12/17/21 11:11 itching walnut Allergy Itching Verified 12/17/21 11:11 [place] Allergy Itching Uncoded 12/17/21 11:11 Family History Mother Heart disease Diabetes Hypertension Father Dementia Surgical History H/O hernia repair history Left AV Fistula Creation (~05/03/20) S/P bypass gastroenterostomy S/P hemorrhoidectomy Social History Smoking Status: Never smoker alcohol intake: never substance use type: does not use ROS Constitutional Constitutional: Reports body ache(s) and weakness Eyes Eyes: Denies change in vision ENT HEENT: Reports systems reviewed and no addt'l complaints, except as documented Cardiovascular Cardiovascular: Reports nausea and vomiting; Denies chest pain or dyspnea Respiratory/Chest Respiratory/Chest: Denies cough or dyspnea Gastrointestinal Gastrointestinal: Reports nausea and vomiting Genitourinary Genitourinary: Reports abdominal discomfort, flank pain and low back pain; Denies dysuria or urinary frequency Musculoskeletal Musculoskeletal: Reports systems reviewed and no addt'l complaints, except as documented Integumentary Integumentary: Reports other Details: Changes in her face and neck secondary to wearing a mask and superficial infection Neurologic Neurologic: Reports systems reviewed and no addt'l complaints, except as doc umented Psychiatric Psychiatric: Reports systems reviewed and no addt'l complaints, except as documented Endocrine Endocrinology: Reports systems reviewed and no addt'l complaints, except as documented Hematologic/Lymphatic Hematologic/Lymphatic: Reports systems reviewed and no addt'l complaints, except as documented Physical Exam Const alert, oriented x3 and no apparent distress General Appearance: cooperative and comfortable HEENT normocephalic, head/scalp atraumatic, hearing grossly normal bilaterally, external ears normal and external nose normal Eyes conjunctivae normal and no scleral icterus General Eye: normal appearance of both eyes Neck supple General: trachea midline Lymph Lymphatic: no lymphedema noted Chest inspection of chest normal Chest: symmetrical chest wall rise Resp normal respiratory effort, normal air movement, no retractions and no use of accessory muscles Effort and Inspection: able to speak in complete sentences Cardio regular rate and regular rhythm GI soft to palpation, non-tender and non-distended Bladder / Kidney Exam: bladder normal to palpation and CVA tenderness right Back/Spine General Back: CVA tenderness right Extremity normal to inspection Skin no rashes or lesions noted, no wounds, no jaundice, no petechiae and no mottling Neuro oriented x3, CN's II-XII intact bilaterally and moves all extremities Psych mental status grossly normal, thought process normal, cooperative and affect normal Lab / Micro Data Result Diagrams: 12/17/21 11:40 12/17/21 11:40 Labs: Laboratory Results - last 24 hr 12/17/21 11:40: WBC 17.2 H, RBC 4.26, Hgb 12.2, Hct 38.3, MCV 89.9, MCH 28.6, MCHC 31.9 L, RDW Std Deviation 46.4 H, RDW Coeff of [place] 14.2, Plt Count 314, MPV 10.5, Immature Gran % (Auto) 0.600, Neut % (Auto) 90.9 H, Lymph % (Auto) 2.6 L, [place] % (Auto) 5.5, Eos % (Auto) 0.2, Baso % (Auto) 0.2, Absolute Neuts (auto) 15.6 H, Absolute Lymphs (auto) 0.44 L, Nucleated RBC % 0, Platelet Estimate ADEQUATE, RBC Morphology NORM C+C 12/17/21 11:40: Sodium 137, Potassium 4.6, Chloride 106, Carbon Dioxide 21.0, Anion Gap 10, BUN 71 H, Creatinine 6.35 H, Estim Creat Clear Calc 7.57, Est GFR (MDRD) Af Amer 8 L, Est GFR (MDRD) Non-Af 7 L, BUN/Creatinine Ratio 11.2, Glucose 132 H, Calcium 9.0 12/17/21 11:56: Urine Color Yellow, Urine Clarity Clear, Urine pH 6.5, Ur Specific [place] 1.010, Urine Protein 100 H, Urine Glucose (UA) 100 H, Urine Ketones Negative, Urine Occult Blood 150 H, Urine Nitrite Negative, Urine Bilirubin Negative, Urine Urobilinogen Normal, Ur Leukocyte Esterase 500 H, Urine RBC 5-10 SEEN, Urine WBC 10-25 SEEN, Ur Squamous Epith Cells 0 SEEN, Urine Bacteria 2+, Urine Mucus 0 SEEN Radiology Impression Abdomen/Pelvis CT 12/17/21 11:39 IMPRESSION: Moderate bilateral renal atrophy. Moderate to severe right hydronephrosis secondary to an obstructing stone proximal right ureteral stone measuring 1.4 x 1.1 x 1.9 cm. Bilateral renal stones. Coronary artery calcification. Minimal hiatal hernia. Wall thickening of the sigmoid colon and rectum could consider proctitis mild colitis. Peritoneal catheter. Minimal free fluid. Advanced degenerative change of the thoracolumbar spine especially L3-L4 L4-L5. Electronically Signed: Leigh Lea MD at 12:52 EST Reading Location ID and State: [facility] / [place] Tel , Service support ,
[2021-12-17] MEDS: 0.9% Normal Saline 1,000 ML 125 ML IV (16:29)
[2021-12-17] MEDS: Heparin Injection (Vial) 5,000 UNIT/ML VIAL 5000 UNIT SC ×2 (16:29→22:13)
--- NOTE | 2021-12-17 17:48 | DIALYSIS ---
[employer] initiated using 2 bags of 1.5% delflex solution. No effluent drainage to evaluate. Dressing was changed. No problems noted. Report was given to BRENDEN Hoang.
--- NOTE | 2021-12-17 19:50 | PCM.CONS.R ---
Assessment & Plan Assessment/Plan (1) ESRD (end stage renal disease) on dialysis: PLAN: -The patient is usually on CAPD at home. The patient is on 4 exchanges of 2 L fill per day. -We will have to convert the patient to CCPD while she is in the hospital. We will also use a 2 L fill and 4 exchanges without last fill. -I will use 1.5% dextrose dialysate since the patient does not appear to be volume overloaded. -We will continue to monitor her volume status, electrolytes, and acid-base status. -Current medications are reviewed and are peripherally dosed for CCPD setting. (2) Hypertension: QUALIFIERS: Hypertension type: essential hypertension Qualified Code(s): I10 - Essential (primary) hypertension PLAN: -BP is well controlled. -The patient is currently not on any antihypertensives. -We will continue to monitor BP. (3) Calculus of proximal right ureter: PLAN: -The patient status post cystoscopy and right ureteral stent placement by urology. -She is receiving IV ciprofloxacin. -Further treatment of kidney stone as per urology. HPI Consult Data Date of Consult: 12/17/21 HPI Narrative Reason for Consultation: ESRD and need for peritoneal dialysis management. HPI Narrative: The patient is a 71-year-old woman with past history of ESRD, hypertension, and prior history of nephrolithiasis. The patient presents to the hospital today with right flank pain. She was subsequently diagnosed with 1.2 cm proximal ureteral stone. The patient was taken to the OR by urology and a right ureteral stent was placed. Nephrology is asked to see the patient because of ESRD and need for for peritoneal dialysis management. Patient denies chest pain, shortness of breath at rest, or nausea. The patient was nauseated earlier and reports anorexia prior to admission. Right flank pain has improved with pain medication and placement of right ureteral stent by urology. She denies gross hematuria, edema of the lower extremities, or vomiting. [facility] Medical History (Updated 12/17/21 @ 16:16 by Natalya Moore) Acute kidney injury superimposed on CKD Arterial steal syndrome Chronic renal failure, stage 5 ESRD (end stage renal disease) on dialysis Hypertension Peritoneal dialysis catheter in place Renal calculi Superficial thrombophlebitis of arm Urinary tract infection Vascular dialysis catheter in place Home Medications hydroxyzine HCl 25 mg PO BID 12/17/21 [History Last Taken 12/15/21] magnesium oxide 400 mg PO DAILY 12/17/21 [History Last Taken 12/15/21] mecobalamin (vitamin B12) [B12 Active] 2,000 mcg PO DAILY 12/17/21 [History Last Taken Unknown] potassium chloride 40 meq PO DAILY 12/17/21 [History Last Taken 12/15/21] sucroferric oxyhydroxide [Velphoro] 1,000 mg PO TIDCM 12/17/21 [History Last Taken 12/16/21] Allergy/AdvReac Type Severity Reaction Status Date / Time adhesive tape Allergy Rash Verified 12/17/21 16:05 amoxicillin [From Augmentin] Allergy Swelling Verified 12/17/21 16:05 cephalexin [From Keflex] Allergy Swelling Verified 12/17/21 16:05 clavulanic acid Allergy Swelling Verified 12/17/21 16:05 [From Augmentin] latex Allergy Rash Verified 12/17/21 16:05 Penicillins [PCN] Allergy Swelling Verified 12/17/21 16:05 sulfamethoxazole Allergy rash,swellling, Verified 12/17/21 16:05 [From Bactrim] itching trimethoprim [From Bactrim] Allergy rash,swellling, Verified 12/17/21 16:05 itching walnut Allergy Itching Verified 12/17/21 16:05 GREEN BEANS Allergy Itching Uncoded 12/17/21 16:05 Family History Mother Heart disease Diabetes Hypertension Father Dementia Surgical History H/O hernia repair history Left AV Fistula Creation (~05/03/20) S/P bypass gastroenterostomy S/P hemorrhoidectomy Social History Smoking Status: Never smoker alcohol intake: never substance use type: does not use ROS ROS Narrative 07/24 ROS was done. It is otherwise noncontributory. Physical Exam Narrative General: NAD. The patient is alert and oriented x3. HEENT: Normocephalic, atraumatic. Mucous membrane is moist. PERRLA, EOMI, hearing is intact. Neck: Supple, no JVD. Heart: Normal S1, S2. There is no rubs, murmurs or gallops. Lungs: Clear to auscultation anteriorly. Abdomen: Normal bowel sound, soft, nontender, no guarding or rebound. Extremities: No clubbing or cyanosis. There is no edema. Musculoskeletal: Full passive range of motion. There is no joint swelling. Skin: No rash. Skin is warm and dry. Psychiatric: Normal mood and affect. Lab / Micro Data Result Diagrams: 12/17/21 11:40 12/17/21 11:40 Labs: Laboratory Results - last 24 hr 12/17/21 11:40: WBC 17.2 H, RBC 4.26, Hgb 12.2, Hct 38.3, MCV 89.9, MCH 28.6, MCHC 31.9 L, RDW Std Deviation 46.4 H, RDW Coeff of [place] 14.2, Plt Count 314, MPV 10.5, Immature Gran % (Auto) 0.600, Neut % (Auto) 90.9 H, Lymph % (Auto) 2.6 L, [place] % (Auto) 5.5, Eos % (Auto) 0.2, Baso % (Auto) 0.2, Absolute Neuts (auto) 15.6 H, Absolute Lymphs (auto) 0.44 L, Nucleated RBC % 0, Platelet Estimate ADEQUATE, RBC Morphology NORM C+C 12/17/21 11:40: Sodium 137, Potassium 4.6, Chloride 106, Carbon Dioxide 21.0, Anion Gap 10, BUN 71 H, Creatinine 6.35 H, Estim Creat Clear Calc 7.57, Est GFR (MDRD) Af Amer 8 L, Est GFR (MDRD) Non-Af 7 L, BUN/Creatinine Ratio 11.2, Glucose 132 H, Calcium 9.0 12/17/21 11:56: Urine Color Yellow, Urine Clarity Clear, Urine pH 6.5, Ur Specific [place] 1.010, Urine Protein 100 H, Urine Glucose (UA) 100 H, Urine Ketones Negative, Urine Occult Blood 150 H, Urine Nitrite Negative, Urine Bilirubin Negative, Urine Urobilinogen Normal, Ur Leukocyte Esterase 500 H, Urine RBC 5-10 SEEN, Urine WBC 10-25 SEEN, Ur Squamous Epith Cells 0 SEEN, Urine Bacteria 2+, Urine Mucus 0 SEEN Radiology Impression Abdomen/Pelvis CT 12/17/21 11:39 IMPRESSION: Moderate bilateral renal atrophy. Moderate to severe right hydronephrosis secondary to an obstructing stone proximal right ureteral stone measuring 1.4 x 1.1 x 1.9 cm. Bilateral renal stones. Coronary artery calcification. Minimal hiatal hernia. Wall thickening of the sigmoid colon and rectum could consider proctitis mild colitis. Peritoneal catheter. Minimal free fluid. Advanced degenerative change of the thoracolumbar spine especially L3-L4 L4-L5. Electronically Signed: Leigh Lea MD at 12:52 EST ,
[2021-12-17] MEDS: Famotidine 20 MG Tablet PO (22:12)
[2021-12-18] MEDS: 0.9% Normal Saline 1,000 ML 125 ML IV ×3 (00:58→20:23)
[2021-12-18 01:55] VITALS: BP 118/56; PULSE 76; RESP 16; TEMP 37.1; O2SAT 97
[2021-12-18 05:25] VITALS: BP 130/68; PULSE 84; RESP 18; TEMP 36.7; O2SAT 97
[2021-12-18] MEDS: Heparin Injection (Vial) 5,000 UNIT/ML VIAL 5000 UNIT SC ×3 (05:29→22:27)
[2021-12-18 05:59] LABS: Absolute Lymphocyte Count 0.66 X10^3/uL (0.83-4.51); Absolute Neutrophil Count 9.8 X10^3/uL (2.0-7.7); Basophil# 0.06 X10^3/uL; Basophil% 0.5 % (0-1); Eosinophil# 0.13 X10^3/uL; Eosinophils% 1.2 % (0-5); Hematocrit 31.5 % (37-47); Hemoglobin 9.9 g/dL (12.0-15.0); Lymphocyte # 0.66 X10^3/ul (0.83-4.51); Lymphocyte % 5.9 % (19-41); Mean Corp Hgb Conc 31.4 g/dL (32-36); Mean Corpuscular Hgb 28.1 pg (27.0-32.0); Mean Corpuscular Volume 89.5 fL (81-99); Mean Platelet Vol. 10.9 fl (6.2-12.0); Monocyte# 0.38 X10^3/uL; Monocyte% 3.4 % (0-10); NRBC Flagged by Analyzer 0 % (0-5); Neutrophil # 9.84 X10^3/uL (2.7-7.7); Neutrophil % 88.3 % (47-70); Platelet Count 264 K/mm3 (150-450); RBC Distribution Width CV 14.2 % (11.6-14.6); RBC Distribution Width SD 46.4 fl (35.1-43.9); Red Blood Count 3.52 M/mm3 (4.2-5.4); White Blood Count 11.2 K/mm3 (4.4-11.0)
[2021-12-18 06:27] LABS: Phosphorus 6.3 mg/dL (2.5-4.9)
[2021-12-18 06:28] LABS: ALB/GLOB Ratio 0.7 RATIO (0.9-2.4); AST(SGOT) 19 U/L (15-37); Alanine Aminotransfer ALT/SGPT 18 U/L (13-56); Alkaline Phosphatase 131 U/L (45-117); Anion Gap 7 (5-15); BUN 61 mg/dL (7-18); BUN/Creat Ratio 10.2 RATIO (10-20); Calcium,Total 8.8 mg/dL (8.5-10.1); Chloride 112 mmol/L (98-107); Creatinine, Serum 5.98 mg/dL (0.55-1.02); EST Glomerular Filtration Rate 7 mL/min (>60); Est Glom Filt Rate - Afr Amer 9 mL/min (>60); Estimated Creatinine Clearance 8.27 ml/min; Globulin 2.8 g/dL (2.2-4.2); Glucose 99 mg/dL (74-106); Potassium 4.6 mmol/L (3.5-5.1); Protein, Total 4.8 g/dL (6.4-8.2); Sodium Level 138 mmol/L (136-145)
[2021-12-18 07:55] VITALS: BP 122/70; PULSE 85; RESP 20; TEMP 37.7; O2SAT 96
[2021-12-18] MEDS: Ciprofloxacin 400 MG/200 ML BAG 100 MG IV (10:50)
[2021-12-18] MEDS: Famotidine 20 MG Tablet PO (10:50)
[2021-12-18 10:57] VITALS: BP 135/70; PULSE 72; RESP 18; TEMP 36.8; O2SAT 99
--- NOTE | 2021-12-18 11:53 | PN.HOSP_ITS ---
Documented by User: Hao JORGE 12/18/21 12:07 Subjective Subjective Patient is a 71-year-old female comfortably lying in bed, alert and orient x3. Patient reports flank pain is significantly improved from admission and is well controlled on current pain regimen. Denies development of any new symptoms overnight. Does not appear in acute distress. Objective Data Objective Data Vital Signs: Vital Signs Temp Pulse Resp BP Pulse Ox 98.3 F 72 18 135/70 H 99 12/18/21 10:57 12/18/21 10:57 12/18/21 10:57 12/18/21 10:57 12/18/21 10:57 Oxygen Delivery Method Room Air Weight: 134 lb 4.184 oz Body Mass Index (BMI) 21.6 Intake & Output: Intake and Output for Last 24 Hours 12/16/21 12/17/21 12/18/21 23:59 23:59 23:59 Intake Total 200 / 200 2206.25 / 2206.25 Output Total 550 / 550 Balance 200 / 0 1656.25 / 1656.25 Medical Nutrition Assessment Dietitian: Malnutrition Criteria Met Start: 12/18/21 11:13 Freq: Status: Active Protocol: Document 12/18/21 11:13 SLA (Rec: 12/18/21 11:13 SLA [id number]) Nutrition Malnutrition Evidence of Malnutrition Exists Yes Malnutrition (severe): Chronic Evidenced By Suboptimal Energy Intake ( Severe),Weight Loss (Severe), Physical Changes (Moderate) Clinical Problem Chronic Disease or Condition Related Malnutrition Etiology related to chronic disease ( ESRD w/ dialysis) and c/o food not tasting like they should and not hungry so having difficulty consuming adequate nutrition to meet est nutritional needs Signs/Symptoms as evidenced by <50% po intake x >1 yr and 25.5% wt loss x 16 mo w/ fat/muscle loss in face, triceps, scapula, clavicles and legs. Status Active Problem Recommendation Dietitian Recommendations/Changes As medically able, rec EVGENY to Renal general (NO PROTEIN restriction) w/ 4 oz ensure clear w/ medpass 4x/day Lab / Micro Data Result Diagrams: 12/18/21 05:20 12/18/21 05:20 Labs: Laboratory Results - last 24 hr 12/17/21 11:40: WBC 17.2 H, RBC 4.26, Hgb 12.2, Hct 38.3, MCV 89.9, MCH 28.6, MCHC 31.9 L, RDW Std Deviation 46.4 H, RDW Coeff of [place] 14.2, Plt Count 314, MPV 10.5, Immature Gran % (Auto) 0.600, Neut % (Auto) 90.9 H, Lymph % (Auto) 2.6 L, [place] % (Auto) 5.5, Eos % (Auto) 0.2, Baso % (Auto) 0.2, Absolute Neuts (auto) 15.6 H, Absolute Lymphs (auto) 0.44 L, Nucleated RBC % 0, Platelet Estimate ADEQUATE, RBC Morphology NORM C+C 12/17/21 11:40: Sodium 137, Potassium 4.6, Chloride 106, Carbon Dioxide 21.0, Anion Gap 10, BUN 71 H, Creatinine 6.35 H, Estim Creat Clear Calc 7.57, Est GFR (MDRD) Af Amer 8 L, Est GFR (MDRD) Non-Af 7 L, BUN/Creatinine Ratio 11.2, Glucose 132 H, Calcium 9.0 12/17/21 11:56: Urine Color Yellow, Urine Clarity Clear, Urine pH 6.5, Ur Specific [place] 1.010, Urine Protein 100 H, Urine Glucose (UA) 100 H, Urine Ketones Negative, Urine Occult Blood 150 H, Urine Nitrite Negative, Urine Bi lirubin Negative, Urine Urobilinogen Normal, Ur Leukocyte Esterase 500 H, Urine RBC 5-10 SEEN, Urine WBC 10-25 SEEN, Ur Squamous Epith Cells 0 SEEN, Urine Bacteria 2+, Urine Mucus 0 SEEN 12/18/21 05:20: WBC 11.2 H, RBC 3.52 L, Hgb 9.9 L, Hct 31.5 L, MCV 89.5, MCH 28.1, MCHC 31.4 L, RDW Std Deviation 46.4 H, RDW Coeff of [place] 14.2, Plt Count 264, MPV 10.9, Immature Gran % (Auto) 0.700, Neut % (Auto) 88.3 H, Lymph % (Auto) 5.9 L, [place] % (Auto) 3.4, Eos % (Auto) 1.2, Baso % (Auto) 0.5, Absolute Neuts (auto) 9.8 H, Absolute Lymphs (auto) 0.66 L, Nucleated RBC % 0 12/18/21 05:20: Sodium 138, Potassium 4.6, Chloride 112 H, Carbon Dioxide 19.0 L , Anion Gap 7, BUN 61 H, Creatinine 5.98 H, Estim Creat Clear Calc 8.27, Est GFR (MDRD) Af Amer 9 L, Est GFR (MDRD) Non-Af 7 L, BUN/Creatinine Ratio 10.2, Glucose 99, Calcium 8.8, Total Bilirubin 0.40, AST 19, ALT 18, Alkaline Phosphatase 131 H, Total Protein 4.8 L, Albumin 2.0 L, Globulin 2.8, Albumin/Globulin Ratio 0.7 L 12/18/21 05:20: Phosphorus 6.3 H Micro: Microbiology 12/17/21 11:56 Urine, Clean Catch Urine Culture - Preliminary Gram positive organism Radiography Diagnostic Testing: Radiology Impression Abdomen/Pelvis CT 12/17/21 11:39 IMPRESSION: Moderate bilateral renal atrophy. Moderate to severe right hydronephrosis secondary to an obstructing stone proximal right ureteral stone measuring 1.4 x 1.1 x 1.9 cm. Bilateral renal stones. Coronary artery calcification. Minimal hiatal hernia. Wall thickening of the sigmoid colon and rectum could consider proctitis mild colitis. Peritoneal catheter. Minimal free fluid. Advanced degenerative change of the thoracolumbar spine especially L3-L4 L4-L5. Electronically Signed: Leigh Lea MD at 12:52 EST Reading Location ID and State: [facility], later [facility] / [place] Tel , Service support , Physical Exam Const alert, oriented x3 and no apparent distress HEENT head/scalp atraumatic and moist oral mucous membranes Head and Scalp: normocephalic Eyes PERRL and conjunctivae normal Neck no lymphadenopathy and no JVD Resp normal respiratory effort, no retractions and no use of accessory muscles Cardio regular rate, regular rhythm and no JVD GI normal to inspection, nondistended, normoactive bowel sounds Extremity normal to inspection Skin no rashes or lesions noted Neuro CN's II-XII intact bilaterally Psych affect normal Assessment & Plan Assessment/Plan (1) Calculus of proximal right ureter: (2) UTI (urinary tract infection): PLAN: Day 1 Discharge planning: Current plan is for patient to discharge home when medically ready. 1) obstructive right renal calculi POD 1 status post cystoscopy and right ureteral stent insertion. Urology following and recommendations are to continue antibiotics, supportive care and Hoover catheter insertion afebrile. Stone will be removed at a later date when UTI has passed. 2) abnormal UA UA on admission demonstrates yellow clear urine, negative nitrites, 500 leukocyte esterase, 10-25 urine WBCs and 2+ bacteria. Urine culture from 2018 showed Enterococcus facialis with sensitivities to ciprofloxacin. Plan; as above, continue ciprofloxacin, urine culture pending. 3) ESRD Patient is on peritoneal dialysis and follows with Dr. Keene. Nephrology following. DVT prophylaxis - Heparin Patient seen by Hao Mahmood PA-C, under the supervision of Dr. Redman. Time spent on patient care: 9 minutes. Documented by User: Dr. Marisela Redman MD 12/18/21 14:44 Objective Data Lab / Micro Data Result Diagrams: 12/18/21 05:20 12/18/21 05:20 Charges/Coding Addendum Addendum: This patient was seen in conjunction with LUISITO Cagle. I have independently interviewed and examined the patient and reviewed pertinent historical, laboratory, and other data. Please refer to LUISITO Cagle's note for his patient's presentation, findings, and recommendations. I have reviewed and his note and concur with his documentation Patient was seen and examined. She feels much improved. She underwent cystoscopy with right ureteral stent insertion Physical Exam: Gen: Looks in some discomfort, not pale, not jaundiced CVS:HS I +II, regular, no murmurs RESP: Diminished at lung bases GI: Right flank pain, BS present and normal, soft, nontender, no palpable organs EXT:No edema ASSESSMENT: 1. Acute right kidney stone with moderate to severe hydronephrosis, status post cystoscopy with right ureteral stent insertion 2. Acute complicated UTI 3. ESRD on PD, several times a day 4. Hypertension 5. Severe protein calorie malnutrition Plan: Appreciate urology and nephrology consult Continue on IV Cipro Follow-up on urine cultures Nutrition consult, continue on supplements Time spent taking patient's history, physical examination, answering questions from patient and her daughter, coordinating patient's care, discussing with nursing and nephrology: 20 minutes Visit Charges Inpatient E&M: 69016 Subs Hosp L2
--- NOTE | 2021-12-18 12:43 | PN.URO_ITS ---
Subjective Subjective up eating lunch. steam drier tender on the right side but feeling so much better. Objective Data Objective Data Vital Signs: Vital Signs Temp Pulse Resp BP Pulse Ox 98.3 F 72 18 135/70 H 99 12/18/21 10:57 12/18/21 10:57 12/18/21 10:57 12/18/21 10:57 12/18/21 10:57 Oxygen Delivery Method Room Air Weight: 60.9 kg Body Mass Index (BMI) 21.6 Intake & Output: Intake and Output for Last 24 Hours 12/16/21 12/17/21 12/18/21 23:59 23:59 23:59 Intake Total 200 / 200 2206.25 / 2206.25 Output Total 550 / 550 Balance 200 / 0 1656.25 / 1656.25 Medical Nutrition Assessment Dietitian: Malnutrition Criteria Met Start: 12/18/21 11:13 Freq: Status: Active Protocol: Document 12/18/21 11:13 SLA (Rec: 12/18/21 11:13 SLA [id number]) Nutrition Malnutrition Evidence of Malnutrition Exists Yes Malnutrition (severe): Chronic Evidenced By Suboptimal Energy Intake ( Severe),Weight Loss (Severe), Physical Changes (Moderate) Clinical Problem Chronic Disease or Condition Related Malnutrition Etiology related to chronic disease ( ESRD w/ dialysis) and c/o food not tasting like they should and not hungry so having difficulty consuming adequate nutrition to meet est nutritional needs Signs/Symptoms as evidenced by <50% po intake x >1 yr and 25.5% wt loss x 16 mo w/ fat/muscle loss in face, triceps, scapula, clavicles and legs. Status Active Problem Recommendation Dietitian Recommendations/Changes As medically able, rec EVGENY to Renal general (NO PROTEIN restriction) w/ 4 oz ensure clear w/ medpass 4x/day Lab / Micro Data Result Diagrams: 12/18/21 05:20 12/18/21 05:20 Labs: Laboratory Results - last 24 hr 12/18/21 05:20: WBC 11.2 H, RBC 3.52 L, Hgb 9.9 L, Hct 31.5 L, MCV 89.5, MCH 28.1, MCHC 31.4 L, RDW Std Deviation 46.4 H, RDW Coeff of [place] 14.2, Plt Count 264, MPV 10.9, Immature Gran % (Auto) 0.700, Neut % (Auto) 88.3 H, Lymph % (Auto) 5.9 L, [place] % (Auto) 3.4, Eos % (Auto) 1.2, Baso % (Auto) 0.5, Absolute Neuts (auto) 9.8 H, Absolute Lymphs (auto) 0.66 L, Nucleated RBC % 0 12/18/21 05:20: Sodium 138, Potassium 4.6, Chloride 112 H, Carbon Dioxide 19.0 L , Anion Gap 7, BUN 61 H, Creatinine 5.98 H, Estim Creat Clear Calc 8.27, Est GFR (MDRD) Af Amer 9 L, Est GFR (MDRD) Non-Af 7 L, BUN/Creatinine Ratio 10.2, Glucose 99, Calcium 8.8, Total Bilirubin 0.40, AST 19, ALT 18, Alkaline Phos phatase 131 H, Total Protein 4.8 L, Albumin 2.0 L, Globulin 2.8, Albumin/Globulin Ratio 0.7 L 12/18/21 05:20: Phosphorus 6.3 H Micro: Microbiology 12/17/21 11:56 Urine, Clean Catch Urine Culture - Preliminary Gram positive organism Radiography Diagnostic Testing: Radiology Impression Abdomen/Pelvis CT 12/17/21 11:39 IMPRESSION: Moderate bilateral renal atrophy. Moderate to severe right hydronephrosis secondary to an obstructing stone proximal right ureteral stone measuring 1.4 x 1.1 x 1.9 cm. Bilateral renal stones. Coronary artery calcification. Minimal hiatal hernia. Wall thickening of the sigmoid colon and rectum could consider proctitis mild colitis. Peritoneal catheter. Minimal free fluid. Advanced degenerative change of the thoracolumbar spine especially L3-L4 L4-L5. Electronically Signed: Leigh Lea MD at 12:52 EST , Physical Exam Narrative Patient is awake, alert and oriented. She is currently eating lunch without an issue. Head neck exam is normal. Abdomen is soft nontender nondistended. She has no Hoover catheter at this time. She is moving her extremities without issue. Assessment & Plan Assessment/Plan (1) Calculus of proximal right ureter: (2) UTI (urinary tract infection): (3) Chronic renal failure, stage 5: (4) Renal calculi: PLAN: continue supportive care and antibiotics ok to discharge when ok with medicine she will follow up with me out patient for stone management
[2021-12-18] MEDS: Ensure Clear 120 ML Liquid PO (14:50)
[2021-12-18 14:58] VITALS: BP 126/73; PULSE 70; RESP 16; TEMP 37.1; O2SAT 96
[2021-12-18] MEDS: SEVELAMER CARBONATE 800 MG TABLET PO (17:27)
[2021-12-18] MEDS: Morphine 2 MG/ML Syringe IV (19:05)
[2021-12-18 21:00] VITALS: BP 144/74; PULSE 77; RESP 16; TEMP 37.1; O2SAT 96
[2021-12-19 04:00] VITALS: BP 123/75; PULSE 77; RESP 16; TEMP 37.1; O2SAT 96
[2021-12-19] MEDS: 0.9% Normal Saline 1,000 ML 125 ML IV (05:30)
[2021-12-19] MEDS: Heparin Injection (Vial) 5,000 UNIT/ML VIAL 5000 UNIT SC (05:30)
[2021-12-19 06:30] LABS: Absolute Lymphocyte Count 0.83 X10^3/uL (0.83-4.51); Absolute Neutrophil Count 4.1 X10^3/uL (2.0-7.7); Basophil# 0.04 X10^3/uL; Basophil% 0.7 % (0-1); Eosinophil# 0.57 X10^3/uL; Eosinophils% 9.4 % (0-5); Hematocrit 30.9 % (37-47); Hemoglobin 9.3 g/dL (12.0-15.0); Lymphocyte # 0.83 X10^3/ul (0.83-4.51); Lymphocyte % 13.7 % (19-41); Mean Corp Hgb Conc 30.1 g/dL (32-36); Mean Corpuscular Hgb 27.2 pg (27.0-32.0); Mean Corpuscular Volume 90.4 fL (81-99); Monocyte# 0.46 X10^3/uL; Monocyte% 7.6 % (0-10); NRBC Flagged by Analyzer 0 % (0-5); Neutrophil # 4.06 X10^3/uL (2.7-7.7); Neutrophil % 67.3 % (47-70); Platelet Count 225 K/mm3 (150-450); RBC Distribution Width CV 14.5 % (11.6-14.6); RBC Distribution Width SD 47.8 fl (35.1-43.9); Red Blood Count 3.42 M/mm3 (4.2-5.4)
[2021-12-19 06:53] LABS: Anion Gap 8 (5-15); BUN 52 mg/dL (7-18); Calcium,Total 8.4 mg/dL (8.5-10.1); Chloride 112 mmol/L (98-107); Creatinine, Serum 5.77 mg/dL (0.55-1.02); EST Glomerular Filtration Rate 8 mL/min (>60); Est Glom Filt Rate - Afr Amer 9 mL/min (>60); Estimated Creatinine Clearance 8.54 ml/min; Glucose 136 mg/dL (74-106); Potassium 3.9 mmol/L (3.5-5.1); Sodium Level 139 mmol/L (136-145)
--- NOTE | 2021-12-19 07:58 | DIALYSIS ---
CCPD treatment completed upon arrival to room without any reported issues, UF 835mL, clear yellow, small amount of fibrin noted, PD catheter clamped and staysafe cap applied, catheter secured to abdomen
[2021-12-19] MEDS: Potassium Chloride Oral Tablet 20 MEQ 40 MEQ PO (08:24)
[2021-12-19] MEDS: SEVELAMER CARBONATE 800 MG TABLET PO ×2 (08:24→11:59)
[2021-12-19 08:30] VITALS: BP 134/63; PULSE 68; RESP 16; TEMP 36.4; O2SAT 97
--- NOTE | 2021-12-19 10:58 | PN.RENAL_ITS ---
Subjective Subjective no new complaints Objective Data Objective Data Vital Signs: Vital Signs Temp Pulse Resp BP Pulse Ox 97.5 F L 68 16 134/63 H 97 12/19/21 08:30 12/19/21 08:30 12/19/21 08:30 12/19/21 08:30 12/19/21 08:30 Oxygen Delivery Method Room Air Weight: 61.4 kg Body Mass Index (BMI) 21.6 Intake & Output: Intake and Output for Last 24 Hours 12/17/21 12/18/21 12/19/21 23:59 23:59 23:59 Intake Total 200 / 200 3790.00 / 3790.00 1000 / 1000 Output Total 1330 / 1330 Balance 200 / 0 2460.00 / 2460.00 1000 / 1000 Medical Nutrition Assessment Dietitian: Malnutrition Criteria Met Start: 12/18/21 11:13 Freq: Status: Active Protocol: Document 12/18/21 11:13 JOY (Rec: 12/18/21 11:13 SLA [id number]) Nutrition Malnutrition Evidence of Malnutrition Exists Yes Malnutrition (severe): Chronic Evidenced By Suboptimal Energy Intake ( Severe),Weight Loss (Severe), Physical Changes (Moderate) Clinical Problem Chronic Disease or Condition Related Malnutrition Etiology related to chronic disease ( ESRD w/ dialysis) and c/o food not tasting like they should and not hungry so having difficulty consuming adequate nutrition to meet est nutritional needs Signs/Symptoms as evidenced by <50% po intake x >1 yr and 25.5% wt loss x 16 mo w/ fat/muscle loss in face, triceps, scapula, clavicles and legs. Status Active Problem Recommendation Dietitian Recommendations/Changes As medically able, rec EVGENY to Renal general (NO PROTEIN restriction) w/ 4 oz ensure clear w/ medpass 4x/day Lab / Micro Data Result Diagrams: 12/19/21 06:04 12/19/21 06:04 Labs: Laboratory Results - last 24 hr 12/19/21 06:04: WBC 6.0, RBC 3.42 L, Hgb 9.3 L, Hct 30.9 L, MCV 90.4, MCH 27.2, MCHC 30.1 L, RDW Std Deviation 47.8 H, RDW Coeff of [place] 14.5, Plt Count 225, MPV 11.0, Immature Gran % (Auto) 1.300 H, Neut % (Auto) 67.3, Lymph % (Auto) 13.7 L, [place] % (Auto) 7.6, Eos % (Auto) 9.4 H, Baso % (Auto) 0.7, Absolute Neuts (auto) 4.1, Absolute Lymphs (auto) 0.83, Nucleated RBC % 0 12/19/21 06:04: Sodium 139, Potassium 3.9, Chloride 112 H, Carbon Dioxide 19.0 L , Anion Gap 8, BUN 52 H, Creatinine 5.77 H, Estim Creat Clear Calc 8.54, Est GFR (MDRD) Af Amer 9 L, Est GFR (MDRD) Non-Af 8 L, BUN/Creatinine Ratio 9.0 L, Glucose 136 H, Calcium 8.4 L Micro: Microbiology 12/17/21 11:56 Urine, Clean Catch Urine Culture - Final Mixed Gram Positive Organisms Physical Exam Narrative General: NAD. The patient is alert and oriented x3. HEENT: Normocephalic, atraumatic. Mucous membrane is moist. PERRLA, EOMI, hearing is intact. Neck: Supple, no JVD. Heart: Normal S1, S2. There is no rubs, murmurs or gallops. Lungs: Clear to auscultation anteriorly. Abdomen: Normal bowel sound, soft, nontender, no guarding or rebound. Extremities: No clubbing or cyanosis. There is no edema. Musculoskeletal: Full passive range of motion. There is no joint swelling. Skin: No rash. Skin is warm and dry. Psychiatric: Normal mood and affect. Assessment & Plan Assessment/Plan (1) ESRD (end stage renal disease) on dialysis: PLAN: -The patient is usually on CAPD at home. The patient is on 4 exchanges of 2 L fill per day. -Now CCPD while she is in the hospital. We will also use a 2 L fill and 4 exchanges without last fill. -I will use 1.5% dextrose dialysate since the patient does not appear to be volume overloaded. -We will continue to monitor her volume status, electrolytes, and acid-base status. -Current medications are reviewed and are peripherally dosed for CCPD setting. (2) Hypertension: QUALIFIERS: Hypertension type: essential hypertension Qualified Code(s): I10 - Essential (primary) hypertension PLAN: -BP is well controlled.. (3) Calculus of proximal right ureter: PLAN: -The patient status post cystoscopy and right ureteral stent placement by urology. -She is receiving IV ciprofloxacin. -Further treatment of kidney stone as per urology.
--- NOTE | 2021-12-19 11:45 | CASEMGMT ---
Addendum entered by Helga Ingram 12/19/21 15:36: Pt screened with [facility] palliative care screening tool due to peritoneal dialysis. Pt met criteria. Order received. Pt had left prior to being able to discuss with her. Hospitalist requested outpt follow up. Email to palliative care. Addendum entered by Helga Ingram 12/19/21 15:15: TC to pt, pt dtr answered for pt. She is aware that [facility] has accepted pt and will be in contact with pt. She verbalizes understanding. Addendum entered by Helga Ingram 12/19/21 14:30: Pt anxious to go home. BRENDEN MARKS in to pt room to see if pt had [employer] Advantage plan. She states she does not but her secondary AARP/U[employer]. Per [facility], they are checking to see if they can take her insurance. Pt is agreeable to be called at home to make aware of accepting [employer]. Pt prefers not to wait for the answer. Addendum entered by Helga Ingram 12/19/21 12:55: BRENDEN MARKS in to pt room for pt preferences of HHC. Pt has chosen [facility] followed by [facility]. Pt had many questions regarding how HHC will work, cost, requirements, scheduling and sheet given to her. All questions answered. Pt dtr María Elena present in room. Original Note: BRENDEN MARKS Assessment: Face to Face with pt for initial transition planning/care coordination assessment. BRENDEN MARKS introduced self and role at [facility], pt voices understanding and consents to assessment. Pt is A/O x4 and answers all questions appropriately at this time. Pt sitting up in chair in no distress. Care providers, pharmacy, and demographics verified/updated. Admitting Dx: kidney stone/UTI PCP:Kwan Specialists:adal Kwok; dada Keene Preferred Pharmacy: [facility] Insurance: MCR, AARP Prescription Benefit: yes LW/HPOA: Pt has a LW and DPOA on file at [facility]. Pt DPOA is her dtr María Elena Dumont. LNOK: María Elena Dumont, татьяна Living Arrangements: Pt lives with dtr in a two story house with 6 steps to enter without a rail. Pt reports she is I in ADL's and denies concerns at home. Transportation: Pt drives self and denies concerns with transportation. DME/HHC/SNF: Pt has w/c, straight canes, 4 prong cane, grab bars in the shower, toilet seat riser, shower chair and hospital bed. Pt denies hx of HHC or SNF stays. Pt states no concerns with going home at time of dc. Pt does peritoneal dialysis for herself. She states her dtr is also trained. Her dtr assists with her care when needed. Pt discusses poor experiences with SNF facilities with her sister and parents. Currently d/t infection, pt is weak and homebound. Pt is agreeable to having HHC therapy see her. Patient was provided a list of HHC providers including quality and resource use data and consistent with the patient?s preferred geographic region, medical needs, and insurance network. Pt will review list and RN CM to check back on preferences. Pt states no further concerns/needs. CM to follow. Advised pt to ask CM if any further question/concerns/needs arise, voices understanding. Pt Goal: Home with HHC Plan: Home with HHC, therapy
[2021-12-19] MEDS: Famotidine 20 MG Tablet PO (12:00)
--- NOTE | 2021-12-19 12:05 | PCM.DC ---
Discharge Instructions Diet Discharge Diet: No restrictions Activity Discharge Activity: Return to Normal Activity Weight Bearing Status: Weight bearing as tolerated Dressing / Incision Call your doctor if you observe: Fever of 101 or Higher, Numbness or Tingling, Shortness of breath, Dizziness, Chest pain, Increased palpitations (irregular heartbeat) and Calf discomfort Follow Up Care Please Follow Up With: Primary care provider When: Within the next two weeks. Test Results: Test results from this visit will be discussed in further detail at your follow-up appointment, if applicable. Discharge Plan Admission Admit Date/Time: 12/17/21 13:40 Primary Reason for Your Visit: UTI Attending Provider: Timothy Bhatti Primary Care Provider: Jewell Bowens Consulting Providers: Nora Allen ; Cristina Kwok Discharge Orders/Prescriptions Prescriptions: New ciprofloxacin HCl 750 mg tablet 750 mg PO BID Qty: 10 RF: 0 Continued hydroxyzine HCl 25 mg Tablet 25 mg PO BID RF: 0 Velphoro 500 mg Tablet,Chewable 1,000 mg PO TIDCM RF: 0 magnesium oxide 400 mg magnesium Tablet 400 mg PO DAILY RF: 0 B12 Active 1,000 mcg Tablet,Chewable 2,000 mcg PO DAILY RF: 0 potassium chloride 20 MEQ tablet,ER particles/crystals 40 meq PO DAILY RF: 0 Referrals / Follow Up: Cristina Kwok MD [STAFF PHYSICIAN] - Within 2 Weeks Jewell Bowens DO [Primary Care Provider] - Within 2 Weeks Disposition Disposition (needs filled in before D/C Order can be placed): Home, Self Care
--- NOTE | 2021-12-19 13:24 | CASEMGMT ---
Discharge Tower Cleaner Called Bernie with [facility]. Referral faxed for PT/OT. Will follow up. Haylee Hansen Discharge Tower Cleaner
--- NOTE | 2021-12-19 13:30 | NURSING ---
Called pharmacy about Cipro P.O. med not on the unit.
[2021-12-19] MEDS: Ciprofloxacin 500 MG Tablet PO (13:51)
[2021-12-19 14:01] VITALS: BP 134/63; PULSE 68; RESP 16; TEMP 36.4; O2SAT 97
--- NOTE | 2021-12-19 14:16 | DS.PCM_ITS ---
Documented by User: Hao JORGE 12/19/21 14:22 Providers Date of Admission: 12/17/21 Date of Discharge: 12/19/21 Primary Care Physician: Dr. Jewell Bowens, Consultations 12/17/21 15:47 Consult: Nephrology Routine Consulting Provider: Nora Allen Reason for Consult: ESRD on PD EMERGENT Consult: No Notified: Yes Date Notified: 12/17/21 Time Notified: 13:42 Method of Notification: per dialysis nurse Consult: Urology Routine Consulting Provider: Cristina Kwok Reason for Consult: Kidney stone/UTI EMERGENT Consult: No Notified: Yes Date Notified: 12/17/21 Time Notified: 13:42 Method of Notification: Page Reason For Visit: KIDNEY STONE/ UTI Diagnosis Discharge Diagnosis (1) ESRD (end stage renal disease) on dialysis: Status: Acute Code(s): N18.6 - End stage renal disease; Z99.2 - Dependence on renal dialysis (2) Hypertension: Status: Chronic Code(s): I10 - Essential (primary) hypertension Qualifiers: Hypertension type: essential hypertension Qualified Code(s): I10 - Essential (primary) hypertension (3) Calculus of proximal right ureter: Status: Acute Code(s): N20.1 - Calculus of ureter Medications at Discharge Home Medications B12 Active 2,000 mcg PO DAILY 12/17/21 Velphoro 1,000 mg PO TIDCM 12/17/21 hydroxyzine HCl 25 mg PO BID 12/17/21 magnesium oxide 400 mg PO DAILY 12/17/21 potassium chloride 40 meq PO DAILY 12/17/21 ciprofloxacin HCl [Cipro] 500 mg PO DAILY #6 tab 12/19/21 Hospital Course Summary of Care Provided Minutes Spent on Discharge: 20 Hospital Course: 1) obstructive right renal calculi POD 2 status post cystoscopy and right ureteral stent re-insertion. Urology following and recommendations are to continue antibiotics, supportive care and F oley catheter insertion afebrile. Stone will be removed at a later date when UTI has passed. 2) UTI UA on admission demonstrates yellow clear urine, negative nitrites, 500 leukocyte esterase, 10-25 urine WBCs and 2+ bacteria. Urine culture from 2018 showed Enterococcus facialis with sensitivities to ciprofloxacin. We will continue ciprofloxacin 750 mg p.o. twice daily for another 5 days to complete 7- day course. 3) ESRD Continue peritoneal dialysis and follow with Dr. Keene at his discretion. 4) debility Patient admits history of chronic weakness and history of multiple falls. Case management consulted to establish home health care. Patient seen by Hao Mahmood PA-C, under the supervision of Dr. Bhatti. Time spent on patient care: 20 minutes. Physical Exam Narrative Patient is a 71-year-old female comfortably resting in bed, alert and orient x3. Patient reports that her flank pain is much improved from admission, but still reports burning with urination. Denies development of any new symptoms overnight. Does not appear in acute distress. Const alert, oriented x3 and no apparent distress Nutritional Appearance: thin HEENT normocephalic, head/scalp atraumatic and hearing grossly normal bilaterally Eyes PERRL and conjunctivae normal Neck no lymphadenopathy, supple and no JVD Resp normal respiratory effort, no retractions and no use of accessory muscles Cardio regular rate, regular rhythm and no JVD GI normal to inspection, nondistended, normoactive bowel sounds Extremity normal to inspection Skin no rashes or lesions noted Neuro CN's II-XII intact bilaterally Psych affect normal Medical Records Data Medical Nutrition Assessment Dietitian: Malnutrition Criteria Met Start: 12/18/21 11:13 Freq: Status: Active Protocol: Document 12/18/21 11:13 JOY (Rec: 12/18/21 11:13 JOY [id number]) Nutrition Malnutrition Evidence of Malnutrition Exists Yes Malnutrition (severe): Chronic Evidenced By Suboptimal Energy Intake ( Severe),Weight Loss (Severe), Physical Changes (Moderate) Clinical Problem Chronic Disease or Condition Related Malnutrition Etiology related to chronic disease ( ESRD w/ dialysis) and c/o food not tasting like they should and not hungry so having difficulty consuming adequate nutrition to meet est nutritional needs Signs/Symptoms as evidenced by <50% po intake x >1 yr and 25.5% wt loss x 16 mo w/ fat/muscle loss in face, triceps, scapula, clavicles and legs. Status Active Problem Recommendation Dietitian Recommendations/Changes As medically able, rec EVGENY to Renal general (NO PROTEIN restriction) w/ 4 oz ensure clear w/ medpass 4x/day Weight / BMI Weight Weight: 135 lb 5.821 oz Body Mass Index (BMI) 21.6 ABG / Lab / Microbiology Data Result Diagrams: 12/19/21 06:04 12/19/21 06:04 Laboratory: Laboratory Results - last 24 hr 12/19/21 06:04: WBC 6.0, RBC 3.42 L, Hgb 9.3 L, Hct 30.9 L, MCV 90.4, MCH 27.2, MCHC 30.1 L, RDW Std Deviation 47.8 H, RDW Coeff of [place] 14.5, Plt Count 225, MPV 11.0, Immature Gran % (Auto) 1.300 H, Neut % (Auto) 67.3, Lymph % (Auto) 13.7 L , [place] % (Auto) 7.6, Eos % (Auto) 9.4 H, Baso % (Auto) 0.7, Absolute Neuts (auto) 4.1, Absolute Lymphs (auto) 0.83, Nucleated RBC % 0 12/19/21 06:04: Sodium 139, Potassium 3.9, Chloride 112 H, Carbon Dioxide 19.0 L , Anion Gap 8, BUN 52 H, Creatinine 5.77 H, Estim Creat Clear Calc 8.54, Est GFR (MDRD) Af Amer 9 L, Est GFR (MDRD) Non-Af 8 L, BUN/Creatinine Ratio 9.0 L, Glucose 136 H, Calcium 8.4 L Microbiology: Microbiology 12/17/21 11:56 Urine, Clean Catch Urine Culture - Final Mixed Gram Positive Organisms D/C Instructions Discharge Diet: No restrictions Weight Bearing Status: Weight bearing as tolerated Call your doctor if you observe: Fever of 101 or Higher, Numbness or Tingling, Shortness of breath, Dizziness, Chest pain, Increased palpitations (irregular heartbeat) and Calf discomfort Please Follow Up With: Primary care provider When: Within the next two weeks. Meaningful Use Info Meaningful Use Diagnoses (Choose all that apply): None applicable Discharge Plan Admission Admit Date/Time: 12/17/21 13:40 Primary Reason for Your Visit: UTI Attending Provider: Timothy Bhatti Primary Care Provider: Jewell Bowens Consulting Providers: Nora Allen ; Cristina Kwok Discharge Orders/Prescriptions Prescriptions: New ciprofloxacin HCl [Cipro] 500 mg tablet 500 mg PO DAILY Qty: 6 RF: 0 Continued hydroxyzine HCl 25 mg Tablet 25 mg PO BID RF: 0 Velphoro 500 mg Tablet,Chewable 1,000 mg PO TIDCM RF: 0 magnesium oxide 400 mg magnesium Tablet 400 mg PO DAILY RF: 0 B12 Active 1,000 mcg Tablet,Chewable 2,000 mcg PO DAILY RF: 0 potassium chloride 20 MEQ tablet,ER particles/crystals 40 meq PO DAILY RF: 0 Referrals / Follow Up: Cristina Kwok MD [STAFF PHYSICIAN] - 01/02/22 1:40 pm Jewell Bowens DO [Primary Care Provider] - 01/02/22 2:20 pm Disposition Disposition (needs filled in before D/C Order can be placed): Home Health Service Documented by User: Dr. Timothy Bhatti MD 12/19/21 16:56 Providers Date of Admission: 12/17/21 Reason For Visit: KIDNEY STONE/ UTI Medications at Discharge Home Medications B12 Active 2,000 mcg PO DAILY 12/17/21 Velphoro 1,000 mg PO TIDCM 12/17/21 hydroxyzine HCl 25 mg PO BID 12/17/21 magnesium oxide 400 mg PO DAILY 12/17/21 potassium chloride 40 meq PO DAILY 12/17/21 ciprofloxacin HCl [Cipro] 500 mg PO DAILY #6 tab 12/19/21 Hospital Course Summary of Care Provided Hospital Course: This patient was seen in conjunction with LUISITO Lund. Lorraine bailey independently interviewed and examined the patient and reviewed pertinent history, examination findings, laboratory and plan of management. I have reviewed the note and agree with the documented findings with the few additional points. In brief, patient is 21-year-old female was admitted with right-sided flank pain, nausea, vomiting but no fever or chills. She has burning micturition. Sh e also history of kidney stone in the past which required lithotripsy. She was admitted on the [facility] floor. She was started on broad-spectrum antibiotic in ED. CT of the abdomen pelvis shows moderate bilateral renal atrophy with moderate to severe right hydronephrosis secondary to obstructive proximal right ureteral stone measuring 1.4 x 1.1 x 1.9 cm. UA shows 500 leukocyte esterase but negative nitrite, 10-25 WBC cells, 2+ bacteria. Urologist Dr. Kwok was consulted. Urologist consulted on right rhetorically stent. Urine culture shows mixed gram-positive organism sensitive contamination. Patient with IV ciprofloxacin and discharged on Cipro 500 mg daily for 6 more doses to complete a total of 9 days. Follow-up with urologist as an outpatient for lithotripsy. ESRD on peritoneal dialysis. Patient follows Dr. Keene Debility from degenerative arthritis of knees. Patient had also fall about 1/2 weeks ago and had bruise on both knees. Range of motion is tender but full. PT and OT done. Discharge medication reconciliation done. Discharge follow-up instructions completed. Discharge process discussed with the patient and all questions were answered to patient's satisfaction. Total time spent, exact 35 minutes on discharge meds reconciliation, examination, coordination of care with nurses and ancillary staff, review of imaging and blood test and discussion with the patient on follow-up instructions. I spent 20 minutes, more than half time and PA spent 15 minutes I have discussed my assessment with LUISITO Lund and orders have been reviewed. Physical Exam Narrative Physical exam General: Alert, Oriented x3, Cooperative HEENT: Atraumatic, PERRLA, EOMI, Normocephalic Oral: No Gingival or Mucosal Lesions/ Ulcerations Neck: Supple, No JVD, Negative Carotid Bruits Lungs: Air entry diminished in bilateral lung bases. No crepitation/rhonchi Cardiovascular: Regular rate, Regular Rhythm, Normal S1, Normal S2, No murmurs Abdomen: Bowel Sounds Present, Soft, Non Tender, Non-Distended : On peritoneal dialysis. Right renal angle fullness but no tenderness. No suprapubic tenderness. Extremities: No edema, Capillary Refill Less than 3 Seconds Skin: No rashes, No breakdown Musculoskeletal: No Tenderness to Palpation of Joints or Extremities Neurological: Cranial nerves II-XII grossly intact, DTR 2+/4 and Symmetrical, Neuro grossly intact Psych/Mental Status: Normal Affect, Appropriate ABG / Lab / Microbiology Data Result Diagrams: 12/19/21 06:04 12/19/21 06:04 Discharge Plan Admission Admit Date/Time: 12/17/21 13:40 Primary Reason for Your Visit: UTI Attending Provider: Timothy Bhatti Primary Care Provider: Jewell Bowens Consulting Providers: Nora Allen ; Cristina Kwok Discharge Orders/Prescriptions Prescriptions: New ciprofloxacin HCl [Cipro] 500 mg tablet 500 mg PO DAILY Qty: 6 RF: 0 Continued hydroxyzine HCl 25 mg Tablet 25 mg PO BID RF: 0 Velphoro 500 mg Tablet,Chewable 1,000 mg PO TIDCM RF: 0 magnesium oxide 400 mg magnesium Tablet 400 mg PO DAILY RF: 0 B12 Active 1,000 mcg Tablet,Chewable 2,000 mcg PO DAILY RF: 0 potassium chloride 20 MEQ tablet,ER particles/crystals 40 meq PO DAILY RF: 0 Referrals / Follow Up: Cristina Kwok MD [STAFF PHYSICIAN] - 01/02/22 1:40 pm Jewell Bowens DO [Primary Care Provider] - 01/02/22 2:20 pm Disposition Disposition (needs filled in before D/C Order can be placed): Home Health Service Charges/Coding Visit Charges Inpatient E&M: 25475 [facility]
--- NOTE | 2021-12-19 14:30 | CASEMGMT ---
Discharge Veterinary Hospital Attendant Sent a second referral to [facility]. Will follow up. Haylee Hansen Discharge Veterinary Hospital Attendant
--- NOTE | 2021-12-19 15:08 | CASEMGMT ---
Discharge Wheelage Clerk [facility] accepted patient for PT/OT. [facility] is reaching out to patient for a possible start up date on 12/20/2021. SELINA Partida was notified. Haylee Hansen Discharge Wheelage Clerk.
== END 2021-12-19 14:50 | disposition home health service (06) | DRG 659 ==
LOC: ED 14:15 → MS3 14:16
PROVIDERS: Internal Medicine Nephrology; Physician Assistant; Urology; Admitting Provider Internal Medicine; Emergency Provider Emergency Medicine; PCP Family Medicine; Visit Provider Internal Medicine
PROC: 0T768DZ Dilation of Right Ureter with Intraluminal Device, Via Natural or Artificial Opening Endoscopic (ICD-10-PCS; principal; 2021-12-17 14:30)
DX: N13.6 Pyonephrosis (principal); E43 Unspecified severe protein-calorie malnutrition; I12.0 Hypertensive chronic kidney disease with stage 5 chronic kidney disease or end stage renal disease; N18.6 End stage renal disease; Z99.2 Dependence on renal dialysis; I77.89 Other specified disorders of arteries and arterioles; M17.0 Bilateral primary osteoarthritis of knee; Z66 Do not resuscitate; Z68.21 Body mass index [BMI] 21.0-21.9, adult; Z79.899 Other long term (current) drug therapy
CPT/HCPCS: 36415; 74176; 76000; 80048; 80053; 81001; 84100; 85025; 87086; 87088; 90947; 93005; 97162; 97166; 97802; 99285; J7030; A4216; C1769; C2617; G0257; J0744; J2405

== ENCOUNTER 2022-01-09 13:22 | Day surgery (SDC) | payer MEDICARE, OTHER, SELFPAY ==
[2022-01-09 13:53] VITALS: BP 104/62; PULSE 74; RESP 16; TEMP 36.3; O2SAT 100; BMI 20.7
[2022-01-09] MEDS: 0.9% Normal Saline 1,000 ML 15 ML IV (13:57)
[2022-01-09 14:02] LABS: Hematocrit 31.4 % (37-47); Hemoglobin 10.2 g/dL (12.0-15.0); Mean Corp Hgb Conc 32.5 g/dL (32-36); Mean Corpuscular Hgb 29.1 pg (27.0-32.0); Mean Corpuscular Volume 89.5 fL (81-99); Mean Platelet Vol. 10.4 fl (6.2-12.0); Platelet Count 359 K/mm3 (150-450); RBC Distribution Width CV 15.3 % (11.6-14.6); RBC Distribution Width SD 50.1 fl (35.1-43.9); Red Blood Count 3.51 M/mm3 (4.2-5.4); White Blood Count 10.8 K/mm3 (4.4-11.0)
[2022-01-09 14:13] LABS: Anion Gap 13 (5-15); BUN 48 mg/dL (7-18); BUN/Creat Ratio 6.8 RATIO (10-20); Calcium,Total 9.2 mg/dL (8.5-10.1); Chloride 109 mmol/L (98-107); Creatinine, Serum 7.11 mg/dL (0.55-1.02); EST Glomerular Filtration Rate 6 mL/min (>60); Est Glom Filt Rate - Afr Amer 7 mL/min (>60); Estimated Creatinine Clearance 6.77 ml/min; Glucose 101 mg/dL (74-106); Potassium 3.4 mmol/L (3.5-5.1); Sodium Level 142 mmol/L (136-145)
--- NOTE | 2022-01-09 14:44 | PCM.HP.STD ---
HPI - General HPI Narrative CHRISTIANO AWAD, is a 71 F who presents for definitive management of her large right renal calculus for which a ureteral stent was already placed. She has been having some left-sided discomfort as well. We discussed doing a cystoscopy and retrograde pyelogram for further evaluation with possible ureteral stent insertion. Informed consent was obtained. The patient has been on antibiotics. [facility] Medical History Acute kidney injury superimposed on CKD Anemia Anxiety Arterial steal syndrome Arthritis Back pain Chronic renal failure, stage 5 Depression Dietary restriction ESRD (end stage renal disease) on dialysis Gastric reflux History of edema History of renal dialysis History of renal disease History of stress test Hypertension Peritoneal dialysis catheter in place Post-menopausal Renal calculi Shortness of breath on exertion Superficial thrombophlebitis of arm Urinary tract infection Vascular dialysis catheter in place Wears glasses Home Medications B12 Active 2,000 mcg PO DAILY 12/17/21 [History Last Taken Unknown] hydroxyzine HCl 50 mg PO QHS PRN 12/17/21 [History Last Taken 12/15/21] magnesium oxide 400 mg PO DAILY 12/17/21 [History Last Taken 12/15/21] potassium chloride 20 meq PO BID 12/17/21 [History Last Taken 12/15/21] calcitriol 1 mcg PO MOWEFR 01/06/22 [History Last Taken Unknown] calcium acetate(phosphat bind) 1,334 mg PO TID 01/06/22 [History Last Taken Unknown] ergocalciferol (vitamin D2) [Vitamin D2] 1,250 mcg PO .3 TIMES WEEKLY 01/06/22 [History Last Taken Unknown] sodium bicarbonate 1,300 mg PO BID 01/06/22 [History Last Taken Unknown] Allergy/AdvReac Type Severity Reaction Status Date / Time adhesive tape Allergy Rash Verified 01/06/22 09:40 amoxicillin [From Augmentin] Allergy Swelling Verified 01/06/22 09:40 cephalexin [From Keflex] Allergy Swelling Verified 01/06/22 09:40 clavulanic acid Allergy Swelling Verified 01/06/22 09:40 [From Augmentin] latex Allergy Rash Verified 01/06/22 09:40 Penicillins [PCN] Allergy Swelling Verified 01/06/22 09:40 sulfamethoxazole Allergy rash,swellling, Verified 01/06/22 09:40 [From Bactrim] itching trimethoprim [From Bactrim] Allergy rash,swellling, Verified 01/06/22 09:40 itching walnut Allergy Itching Verified 01/06/22 09:40 GREEN BEANS Allergy Itching Uncoded 01/06/22 09:40 Family History Mother Heart disease Diabetes Hypertension Father Dementia Surgical History H/O hernia repair history Left AV Fistula Creation (~05/03/20) Hx of cystoscopy S/P bypass gastroenterostomy S/P hemorrhoidectomy Social History Smoking Status: Never smoker alcohol intake: never substance use type: does not use ROS Constitutional Constitutional: Reports fatigue; Denies chills or fever(s) Eyes Eyes: Reports systems reviewed and no addt'l complaints, except as documented ENT HEENT: Reports systems reviewed and no addt'l complaints, except as documented Cardiovascular Cardiovascular: Denies chest pain or dyspnea Gastrointestinal Gastrointestinal: Reports abdominal pain and nausea Genitourinary Genitourinary: Reports flank pain, urinary frequency, urinary incontinence and urinary urgency Musculoskeletal Musculoskeletal: Reports abnormal gait Integumentary Integumentary: Reports systems reviewed and no addt'l complaints, except as documented Neurologic Neurologic: Reports systems reviewed and no addt'l complaints, except as documented Psychiatric Psychiatric: Reports systems reviewed and no addt'l complaints, except as documented Endocrine Endocrinology: Reports systems reviewed and no addt'l complaints, except as documented Hematologic/Lymphatic Hematologic/Lymphatic: Reports systems reviewed and no addt'l complaints, except as documented Allergic/Immunologic Allergic/Immunologic: Reports systems reviewed and no addt'l complaints, except as documented Vital Signs Vital Signs Vital Signs: 01/09/22 13:49 01/09/22 13:53 Temperature 97.3 F L Temperature Source Temporal Pulse Rate 74 Respiratory Rate 16 Respiratory Pattern Normal Blood Pressure 104/62 Blood Pressure Mean 76 Blood Pressure Source Monitor Blood Pressure Position Semi-Fowlers Blood Pressure Location Right Arm Pulse Ox 100 Oxygen Delivery Method Room Air Weight Weight: 60 kg Body Mass Index (BMI) 20.7 Physical Exam Const alert, oriented x3 and no apparent distress General Appearance: cooperative, well kempt and frail HEENT normocephalic, head/scalp atraumatic, hearing grossly normal bilaterally and external nose normal Eyes no scleral icterus General Eye: normal appearance of both eyes Neck supple General: trachea midline Lymph Lymphatic: no lymphedema noted Chest inspection of chest normal Chest: symmetrical chest wall rise Resp normal respiratory effort, normal air movement, no retractions and no use of accessory muscles Effort and Inspection: able to speak in complete sentences Cardio regular rate and regular rhythm GI soft to palpation, non-tender and non-distended external exam normal Bladder / Kidney Exam: CVA tenderness right Back/Spine General Back: CVA tenderness right Extremity normal to inspection Skin no rashes or lesions noted, no wounds, no jaundice, no petechiae and no mottling Neuro oriented x3, CN's II-XII intact bilaterally and moves all extremities Psych mental status grossly normal, thought process normal, cooperative and affect normal Results Lab / Micro Data Result Diagrams: 01/09/22 13:50 01/09/22 13:50 Labs: Laboratory Results - last 24 hr 01/09/22 13:50: WBC 10.8, RBC 3.51 L, Hgb 10.2 L, Hct 31.4 L, MCV 89.5, MCH 29.1, MCHC 32.5, RDW Std Deviation 50.1 H, RDW Coeff of [place] 15.3 H, Plt Count 359, MPV 10.4 01/09/22 13:50: Sodium 142, Potassium 3.4 L, Chloride 109 H, Carbon Dioxide 20.0 L, Anion Gap 13, BUN 48 H, Creatinine 7.11 H, Estim Creat Clear Calc 6.77, Est GFR (MDRD) Af Amer 7 L, Est GFR (MDRD) Non-Af 6 L, BUN/Creatinine Ratio 6.8 L, Glucose 101, Calcium 9.2 Assessment & Plan Assessment/Plan (1) Renal calculi: (2) Flank pain: PLAN: Proceed with cystoscopy, left retrograde pyelogram with possible left ureteral stent insertion. Right renal extracorporal shockwave lithotripsy. Informed consent was obtained.
--- NOTE | 2022-01-09 14:49 | PCM.OPRPT ---
Problems Associated Problem List Diagnoses (1) Flank pain: (2) Renal calculi: Report of Operation Date of Procedure: 01/09/22 Pre-Operative Diagnosis: Bilateral renal stones, left flank pain Post-Operative Diagnosis: Same Surgery/Procedure Performed:: Cystoscopy with left retrograde pyelogram, right renal extracorporal shockwave lithotripsy Surgeon: Cristina Kwok Type of Anesthesia: General Description of Procedure: The patient is a 71-year-old female with history of significant stone disease who underwent a right ureteral stent insertion for an obstructing 1.4 cm right UPJ calculus. She now presents for definitive management of this stone. She has been having left-sided flank pain as well and we discussed proceeding with a cystoscopy and left retrograde pyelogram to ensure there is no obstruction. Informed consent was obtained. The patient was taken to the operating room and placed on the operating room table. Anesthesia monitored the head, neck, airway, IV access and vital signs throughout the case. Once anesthesia was apparently administered the patient was placed into dorsal lithotomy position was prepped and draped in usual sterile fashion. The cystoscope was inserted through the urethra into the urinary bladder under direct visualization. There were no bladder mucosal abnormalities identified. The left ureteral orifice was seen and intubated gently with an 8 [place] cone-tip catheter. Contrast was injected in retrograde fashion under fluoroscopic visualization. There were no filling defects and no evidence of hydronephrosis or hydroureter in the patient's left side. The ureter is somewhat tortuous. At this time the patient's bladder was emptied and the cystoscope was removed. She was repositioned. The right UPJ calculus was easily visualized and 3000 shocks were applied without complication. The patient was then awakened and taken to the recovery room in good condition. There were no complications during this procedure. Grafts/Implants Used: None Complications None Admit VTE Documentation VTE Present on Admission: Yes VTE Mechan Device Prophylaxis: SCD's VTE Pharm Prophylaxis ordered?: No
--- NOTE | 2022-01-09 14:51 | PCM.DC ---
Discharge Instructions Diet Discharge Diet: No restrictions Activity Discharge Activity: Return to Normal Activity Dressing / Incision Call your doctor if you observe: Fever of 101 or Higher, Inability to urinate and Inability to have a bowel movement Follow Up Care Please Follow Up With: Cristina Kwok MD When: Call the office for appointment in 2 to 3 weeks Test Results: Test results from this visit will be discussed in further detail at your follow-up appointment, if applicable. Discharge Plan Admission Attending Provider: Cristina Kwok Primary Care Provider: Jewell Bowens Discharge Orders/Prescriptions Prescriptions: New hydrocodone-acetaminophen [hydrocodone-acetaminophen] 1 TABLET tablet 1 tab PO Q8H PRN PRN (Reason: Pain) 7 Days Qty: 15 RF: 0 Continued hydroxyzine HCl 25 mg Tablet 50 mg PO QHS PRN (Reason: Itching) RF: 0 magnesium oxide 400 mg magnesium Tablet 400 mg PO DAILY RF: 0 B12 Active 1,000 mcg Tablet,Chewable 2,000 mcg PO DAILY RF: 0 potassium chloride 20 MEQ tablet,ER particles/crystals 20 meq PO BID RF: 0 sodium bicarbonate 650 mg tablet 1,300 mg PO BID RF: 0 ergocalciferol (vitamin D2) [Vitamin D2] 1,250 mcg (50,000 unit) Capsule 1,250 mcg PO .3 TIMES WEEKLY RF: 0 calcium acetate(phosphat bind) 667 mg Capsule 1,334 mg PO TID RF: 0 calcitriol 0.5 mcg Capsule 1 mcg PO MOWEFR RF: 0 Referrals / Follow Up: Jewell Bowens DO [Primary Care Provider] - Disposition Disposition (needs filled in before D/C Order can be placed): Home, Self Care
[2022-01-09] MEDS: Ciprofloxacin 200 MG/100 ML BAG 100 MG IV (15:04)
[2022-01-09 16:09] VITALS: BP 104/62; BP 124/84; PULSE 76; RESP 18; TEMP 36.3; O2SAT 98
[2022-01-09 16:15] VITALS: BP 104/62; BP 126/64; PULSE 74; RESP 16; O2SAT 98
[2022-01-09 16:30] VITALS: BP 104/62; BP 119/64; PULSE 69; RESP 16; O2SAT 98
[2022-01-09 16:43] VITALS: BP 104/62; BP 123/69; PULSE 74; RESP 16; TEMP 37; O2SAT 98
[2022-01-09 17:00] VITALS: BP 104/62
== END 2022-01-09 23:59 | disposition home or self-care (01) ==
LOC: SDC 13:23 → AC 13:24
PROVIDERS: PCP Family Medicine; Referring Provider Urology; Visit Provider Urology
PROC: (CPT 50590; principal; 2022-01-09 14:50)
DX: N20.0 Calculus of kidney (principal); Z99.2 Dependence on renal dialysis; N18.6 End stage renal disease; I12.0 Hypertensive chronic kidney disease with stage 5 chronic kidney disease or end stage renal disease; N13.8 Other obstructive and reflux uropathy; Z98.0 Intestinal bypass and anastomosis status; Z87.19 Personal history of other diseases of the digestive system
CPT/HCPCS: 50590; 00873; 52005; 80048; 85027; J7030; J0744; J2405

== ENCOUNTER 2022-01-30 10:20 | Outpatient (CLI) | payer MEDICARE, OTHER, SELFPAY ==
--- NOTE | 2022-01-30 10:23 | RAD_ITS ---
INDICATION: RENAL CALCULI,FLANK PAIN EXAMINATION/TECHNIQUE: X-RAY - XR Abdomen 1 View COMPARISON: 12/17/2021 FINDINGS: Right double-J stent seen in position. Peritoneal dialysis catheter visualized BOWEL GAS PATTERN: Non-obstructive. No bowel or stomach distention. FREE AIR: Not assessed on a single supine view. ORGANOMEGALY: Not seen. CALCIFICATIONS: Calcifications visualized superimposed over bilateral renal beds more prominent overlying the right renal bed the largest of which is seen measuring 1.2 cm, these demonstrate no significant change in comparison to the prior study. LOWER CHEST: No acute pathology. BONES AND SOFT TISSUES: Degenerative bone changes seen. No acute pathology. RAD/Abdomen Single View IMPRESSION: Bilateral renal stones visualized demonstrating no change. Electronically Signed: Ilir Barreto MD at 12:05 EDT ,
== END 2022-01-30 23:59 | disposition home or self-care (01) ==
PROVIDERS: PCP Family Medicine; Referring Provider Urology; Visit Provider Urology
DX: N20.0 Calculus of kidney (principal); R10.9 Unspecified abdominal pain
CPT/HCPCS: 74018

== ENCOUNTER 2022-02-21 13:04 | Emergency (ER) | payer MEDICARE, OTHER, SELFPAY ==
[2022-02-21 13:05] VITALS: BP 132/73; PULSE 87; RESP 16; TEMP 36.6; O2SAT 97; BMI 20.3
--- NOTE | 2022-02-21 13:28 | RAD_ITS ---
STUDY: X-RAY - CERVICAL SPINE REASON FOR EXAM: Female, 71 years old. Atraumatic pain. TECHNIQUE: 3 view(s) of the cervical spine were obtained. COMPARISON: None FINDINGS: Normal anterior atlantoaxial articulation. Normal odontoid process. Normal cervical lordosis. There is multi-level endplate spondylosis. There is multi-level degenerative disc disease with multilevel disc space narrowing. Normal visualized intervertebral neuroforamina. Facet joint osteoarthritis. There are atherosclerotic vascular calcifications of the carotid arteries. RAD/Cerv Spine 2 or 3 Views IMPRESSION: Multilevel disc space narrowing and spondylosis. Electronically Signed: Jonathon Crook MD at 14:24 EDT ,
--- NOTE | 2022-02-21 13:28 | RAD_ITS ---
STUDY: X-RAY - RIGHT WRIST REASON FOR EXAM: Female, 71 years old. Atraumatic pain. TECHNIQUE: 3 view(s) of the wrist were obtained. COMPARISON: None. FINDINGS: Normal visualized distal radius and ulna. Normal radiocarpal articulation. Normal distal radioulnar articulation. Normal carpal bones. Normal carpal articulations. Normal carpometacarpal articulation of the thumb. Normal second through fifth carpometacarpal articulations. Normal visualized metacarpal bones. Vascular calcification. Soft tissue swelling. RAD/Wrist min 3 Views IMPRESSION: Vascular calcification. Soft tissue swelling. Electronically Signed: Jonathon Crook MD at 14:27 EDT ,
--- NOTE | 2022-02-21 13:28 | RAD_ITS ---
STUDY: X-RAY - RIGHT ANKLE REASON FOR EXAM: Female, 71 years old. Atraumatic pain. TECHNIQUE: 3 view(s) of the ankle. COMPARISON: None. FINDINGS: Normal visualized distal tibia and fibula. Normal medial and lateral malleoli. Normal tibiotalar articulation and ankle mortise. Plantar spur. The visualized subtalar, talonavicular, calcaneocuboid and tarsal articulations are normal. There are atherosclerotic calcifications. RAD/Ankle min 3 Views IMPRESSION: No acute abnormality is seen. Electronically Signed: Jonathon Crook MD at 14:23 EDT ,
--- NOTE | 2022-02-21 13:28 | RAD_ITS ---
STUDY: X-RAY CHEST REASON FOR EXAM: Female, 71 years old. Cough TECHNIQUE: PA and lateral views of the chest. COMPARISON: Comparison is made with prior study dated 11/10/2020. FINDINGS: Surgical clips are seen in the left upper arm. The lungs are clear and expanded. There is no demonstrated pleural abnormality. Normal size heart. Normal mediastinum and mame. Normal visualized pulmonary arteries. There is atherosclerotic calcification of the aortic arch with tortuosity. There is demineralization of the osseous structures. Increased kyphosis. Normal visualized ribs, clavicles, and shoulders. There is no demonstrated abnormality of the visualized soft tissue structures of the upper abdomen. RAD/Chest PA and Lateral IMPRESSION: Lungs are clear. Electronically Signed: Jonathon Crook MD at 14:25 EDT ,
--- NOTE | 2022-02-21 13:30 | EX.ED.DYSGE1 ---
HPI History of Present Illness Chief Complaint: General Illness Informant: patient and family Narrative Narrative: Reports increasing weakness bilateral ankle wrist neck pain for the past 3 days. No falls or injuries. Denies rheumatological history. No history of similar. Nondiabetic. However on dialysis peritoneal currently followed by Dr. Arevalo. Reports because likely that they can from postobstructive from gastric bypass in the 70s where she had a [place] with backed up to urine, kidneys never recovered from this per history. Denies abdominal pain. Denies fevers. Reports noted slight swelling in the right wrist. Patient urinates 3-4 times a day. Reports cough for 2 weeks with phlegm. No fevers. Prior similar symptoms: No PFSH PFSH Medical History Acute kidney injury superimposed on CKD Anemia Anxiety Arterial steal syndrome Arthritis Back pain Chronic renal failure, stage 5 Depression Dietary restriction ESRD (end stage renal disease) on dialysis Gastric reflux History of edema History of renal dialysis History of renal disease History of stress test Hypertension Peritoneal dialysis catheter in place Post-menopausal Renal calculi Shortness of breath on exertion Superficial thrombophlebitis of arm Urinary tract infection Vascular dialysis catheter in place Wears glasses Home Medications B12 Active 2,000 mcg PO DAILY 12/17/21 [History Last Taken Unknown] hydroxyzine HCl 50 mg PO QHS PRN 12/17/21 [History Last Taken 12/15/21] magnesium oxide 400 mg PO DAILY 12/17/21 [History Last Taken 12/15/21] potassium chloride 20 meq PO BID 12/17/21 [History Last Taken 12/15/21] calcitriol 1 mcg PO MOWEFR 01/06/22 [History Last Taken Unknown] calcium acetate(phosphat bind) 1,334 mg PO TID 01/06/22 [History Last Taken Unknown] ergocalciferol (vitamin D2) [Vitamin D2] 1,250 mcg PO .3 TIMES WEEKLY 01/06/22 [History Last Taken Unknown] sodium bicarbonate 1,300 mg PO BID 01/06/22 [History Last Taken Unknown] hydrocodone-acetaminophen 1 tab PO Q8H PRN PRN 7 Days #15 tablet 01/09/22 [Rx Last Taken Unknown] hydrocodone-acetaminophen 1 tab PO Q6H PRN 3 Days #12 tab 02/21/22 [Rx Last Taken Unknown] prednisone 40 mg PO DAILY #14 tab 02/21/22 [Rx Last Taken Unknown] Allergy/AdvReac Type Severity Reaction Status Date / Time adhesive tape Allergy Rash Verified 02/21/22 13:07 amoxicillin [From Augmentin] Allergy Swelling Verified 02/21/22 13:07 cephalexin [From Keflex] Allergy Swelling Verified 02/21/22 13:07 clavulanic acid Allergy Swelling Verified 02/21/22 13:07 [From Augmentin] latex Allergy Rash Verified 02/21/22 13:07 Penicillins [PCN] Allergy Swelling Verified 02/21/22 13:07 sulfamethoxazole Allergy rash,swellling, Verified 02/21/22 13:07 [From Bactrim] itching trimethoprim [From Bactrim] Allergy rash,swellling, Verified 02/21/22 13:07 itching walnut Allergy Itching Verified 02/21/22 13:07 GREEN BEANS Allergy Itching Uncoded 02/21/22 13:07 Family History Mother Heart disease Diabetes Hypertension Father Dementia Surgical History H/O hernia repair history Left AV Fistula Creation (~05/03/20) Hx of cystoscopy S/P bypass gastroenterostomy S/P hemorrhoidectomy Social History Smoking Status: Never smoker alcohol intake: never substance use type: does not use ROS ROS ED Constitutional Constitutional ED: Denies chills, fever(s) or sweats Eyes Eyes: Denies change in vision ENT ENT ED: Denies dysphagia or sore throat Cardiovascular Cardiovascular: Denies chest pain, leg edema, palpitations or racing heartbeat Respiratory/Chest Respiratory/Chest: Denies cough, dyspnea or dyspnea on exertion Gastrointestinal Gastrointestinal: Denies abdominal pain, diarrhea, nausea or vomiting Genitourinary Genitourinary ED: Denies dysuria, hematuria or urinary frequency Musculoskeletal Musculoskeletal: Reports arthralgias and other Details: Pain in cervical spine, bilateral wrist, bilateral ankles ; Denies back pain, extremity pain or neck pain Integumentary Denies rash or wounds Neurologic Neurologic: Reports weakness and other; Denies headache(s) or paresthesias EXAM Physical Exam Const Vital Signs: 02/21/22 13:05 02/21/22 13:21 Temperature 97.8 F Temperature Source Temporal Pulse Rate 87 Respiratory Rate 16 Respiratory Effort Non-Labored Blood Pressure 132/73 H Blood Pressure Mean 92 Pulse Ox 97 Oxygen Delivery Method Room Air Positive well nourished and well developed General Appearance ED: well developed and NAD HEENT Reports moist mucous membranes normocephalic and atraumatic Eyes PERRL, EOMs intact bilaterally and conjunctivae normal General Eye ED: Yes normal appearance of both eyes Neck no lymphadenopathy and supple Neck Narrative: Full range of motion. General: Negative for tenderness Chest Wall Chest: Negative for tenderness Resp normal respiratory effort and normal air movement Effort and Inspection: symmetric chest movement; Negative for respiratory distress Cardio regular rate, regular rhythm and no murmurs Peripheral Pulses: pulses 2+ throughout GI normal to inspection, nondistended, normoactive bowel sounds and non-tender Palpation: Negative for guarding or rebound tenderness present Back/Spine no CVA tenderness and no thoracic nor lumbar tenderness Extremity normal to inspection Extremity Narrative: Lower extremities full range of motion there is no swelling the ankles bilaterally no erythema no warmth. Skin intact. Neuro vas intact. Upper extremities: There is full range of motion of all joints are slight swelling at dorsum of the hand first and second metacarpal with no erythema. Skin intact. No swelling of the wrist joints bilaterally. Neuro vas intact distally. General Extremety ED: Yes edema; Negative for tenderness General Extremity: edema Neuro oriented x3 and no sensory deficits noted Sensorium / Orientation: awake and alert Skin no rashes or lesions noted and no wounds MDM MDM MDM Narrative Medical decision making narrative: There is no signs of septic joints. Reporting joint pains bilaterally that is new for the patient. I will check labs ESR and CRP. Concern for possible rheumatological issues. She has no history of this. We will obtain auditor appraiser films of her areas of pain. Chest x-ray added due to 2-week history of cough. We will start prednisone 40 mg. She has tolerated hydrocodone confirmed in records in the past. She has no recent prescriptions. Labs White count 10.3 mildly elevated CRP and ESR. 3 view cervical spine degenerative changes reviewed by myself and read by radiology. Bilateral wrist x-rays 3 views each reviewed myself and the radiology shows degenerative changes with calcified vessels. No fracture or dislocation. Soft tissue swelling right wrist. Bilateral ankle 3 view x-rays obtained and reviewed by myself and read by radiology shows no acute process calcified vessels. Reevaluation improving symptoms.Additional week of steroids hydrocodone as needed. She will follow-up with her PCP for further testing as an outpatient. Lab Data Attestation: I reviewed the patient's lab results. Labs: Laboratory Results - last 24 hr 02/21/22 02/21/22 13:40 13:40 WBC 10.3 RBC 4.02 L Hgb 12.1 Hct 38.4 MCV 95.5 MCH 30.1 MCHC 31.5 L RDW Std Deviation 50.3 H RDW Coeff of [place] 14.4 Plt Count 249 MPV 10.6 Immature Gran % (Auto) 0.400 Neut % (Auto) 82.2 H Lymph % (Auto) 8.1 L [place] % (Auto) 7.0 Eos % (Auto) 1.8 Baso % (Auto) 0.5 Absolute Neuts (auto) 8.5 H Absolute Lymphs (auto) 0.84 Nucleated RBC % 0 ESR 39 H Sodium 139 Potassium 3.2 L Chloride 107 Carbon Dioxide 19.0 L Anion Gap 13 BUN 49 H Creatinine 6.96 H Estim Creat Clear Calc 6.80 Est GFR (MDRD) Af Amer 8 L Est GFR (MDRD) Non-Af 6 L BUN/Creatinine Ratio 7.0 L Glucose 103 Calcium 9.4 C-React Prot Ext Range 11.80 H Radiography Chest X-Ray - ED: Read by ED Physician and Read by Radiologist Diagnostic Testing: Clinical Impression(s) from Imaging Studies Ankle X-Ray 02/21/22 13:28 IMPRESSION: No acute abnormality is seen. Electronically Signed: Jonathon Crook MD at 14:23 EDT , Cervical Spine X-Ray 02/21/22 13:28 IMPRESSION: Multilevel disc space narrowing and spondylosis. Electronically Signed: Jonathon Crook MD at 14:24 EDT , Chest X-Ray 02/21/22 13:28 IMPRESSION: Lungs are clear. Electronically Signed: Jonathon Crook MD at 14:25 EDT , Wrist X-Ray 02/21/22 13:28 IMPRESSION: Vascular calcification. Soft tissue swelling. Electronically Signed: Jonathon Crook MD at 14:27 EDT , Ankle X-Ray 02/21/22 13:34 IMPRESSION: Calcaneal spurs. Electronically Signed: Jonathon Crook MD at 14:26 EDT , Wrist X-Ray 02/21/22 13:34 IMPRESSION: 1. Moderate demineralization of the bony structures. Moderate atherosclerotic calcifications of the forearm, wrist and hand. Mild narrowing of the triscaphe the articulation. Electronically Signed: Gunnar Perez MD at 14:29 EDT Reading Location ID and State: [facility] / [place] , Service support , Discharge Plan Triage Chief Complaint: General Illness ED Provider: Luis Carias Dx/Rx/DC Orders Clinical Impression: Polyarthralgia, DDD (degenerative disc disease), cervical, URI (upper respiratory infection), ESRD (end stage renal disease) on dialysis Instructions: ED Arthralgia, ED Neck Pain, ED URI, Viral, No Abx (Adult) Prescriptions: New prednisone 20 mg tablet 40 mg PO DAILY Qty: 14 RF: 0 hydrocodone-acetaminophen 5-325 mg tablet 1 tab PO Q6H PRN (Reason: pain) 3 Days Qty: 12 RF: 0 No Action hydroxyzine HCl 25 mg Tablet 50 mg PO QHS PRN (Reason: Itching) RF: 0 magnesium oxide 400 mg magnesium Tablet 400 mg PO DAILY RF: 0 B12 Active 1,000 mcg Tablet,Chewable 2,000 mcg PO DAILY RF: 0 potassium chloride 20 MEQ tablet,ER particles/crystals 20 meq PO BID RF: 0 sodium bicarbonate 650 mg tablet 1,300 mg PO BID RF: 0 ergocalciferol (vitamin D2) [Vitamin D2] 1,250 mcg (50,000 unit) Capsule 1,250 mcg PO .3 TIMES WEEKLY RF: 0 calcium acetate(phosphat bind) 667 mg Capsule 1,334 mg PO TID RF: 0 calcitriol 0.5 mcg Capsule 1 mcg PO MOWEFR RF: 0 hydrocodone-acetaminophen [hydrocodone-acetaminophen] 1 TABLET tablet 1 tab PO Q8H PRN PRN (Reason: Pain) 7 Days Qty: 15 RF: 0 Primary Care Provider: Jewell Bowens Referrals: Jewell Bowens DO [Primary Care Provider] - 3-5 Days Activity Restrictions/Additional Instructions: X-ray her cervical spine notes degenerative changes. Bilateral wrist x-rays mild arthritic changes. Bilateral ankle with no acute findings. There are calcified vessels noted of your wrist and ankle films. Chest x-ray is negative for any infectious process. ESR 39, CRP 11.8 slightly elevated. Take steroids as prescribed. Hydrocodone as needed. Follow-up with your doctor for further work-up as an outpatient. Disposition Disposition: Home, Self Care
--- NOTE | 2022-02-21 13:34 | RAD_ITS ---
STUDY: X-RAY - LEFT ANKLE REASON FOR EXAM: Female, 71 years old. Atraumatic pain. TECHNIQUE: 3 view(s) of the ankle. COMPARISON: None. FINDINGS: Normal visualized distal tibia and fibula. Normal medial and lateral malleoli. Normal tibiotalar articulation and ankle mortise. Calcaneal spurs. The visualized subtalar, talonavicular, calcaneocuboid and tarsal articulations are normal. There are atherosclerotic calcifications. RAD/Ankle min 3 Views IMPRESSION: Calcaneal spurs. Electronically Signed: Jonathon Crook MD at 14:26 EDT ,
--- NOTE | 2022-02-21 13:34 | RAD_ITS ---
STUDY: X-RAY - LEFT WRIST REASON FOR EXAM: Female, 71 years old. PAIN TECHNIQUE: 3 view(s) of the wrist were obtained. COMPARISON: None. FINDINGS: Moderate demineralization of the bony structures. Moderate atherosclerotic calcifications of the forearm, wrist and hand. Mild narrowing of the triscaphe the articulation. Normal visualized distal radius and ulna. Normal radiocarpal articulation. Normal distal radioulnar articulation. Normal carpal bones. Normal carpal articulations. Normal carpometacarpal articulation of the thumb. Normal second through fifth carpometacarpal articulations. Normal visualized metacarpal bones. The soft tissue structures are unremarkable. There is no demonstrated acute fracture. RAD/Wrist min 3 Views IMPRESSION: 1. Moderate demineralization of the bony structures. Moderate atherosclerotic calcifications of the forearm, wrist and hand. Mild narrowing of the triscaphe the articulation. Electronically Signed: Gunnar Perez MD at 14:29 EDT ,
[2022-02-21] MEDS: predniSONE 20 MG Tablet 40 MG PO (13:47)
[2022-02-21] MEDS: HYDROcodone Bitartrate/Apap 5/325 Tablet PO (13:47)
[2022-02-21 13:48] LABS: Absolute Lymphocyte Count 0.84 X10^3/uL (0.83-4.51); Absolute Neutrophil Count 8.5 X10^3/uL (2.0-7.7); Basophil# 0.05 X10^3/uL; Basophil% 0.5 % (0-1); Eosinophil# 0.19 X10^3/uL; Eosinophils% 1.8 % (0-5); Hematocrit 38.4 % (37-47); Hemoglobin 12.1 g/dL (12.0-15.0); Lymphocyte # 0.84 X10^3/ul (0.83-4.51); Lymphocyte % 8.1 % (19-41); Mean Corp Hgb Conc 31.5 g/dL (32-36); Mean Corpuscular Hgb 30.1 pg (27.0-32.0); Mean Corpuscular Volume 95.5 fL (81-99); Mean Platelet Vol. 10.6 fl (6.2-12.0); Monocyte# 0.72 X10^3/uL; NRBC Flagged by Analyzer 0 % (0-5); Neutrophil # 8.49 X10^3/uL (2.7-7.7); Neutrophil % 82.2 % (47-70); Platelet Count 249 K/mm3 (150-450); RBC Distribution Width CV 14.4 % (11.6-14.6); RBC Distribution Width SD 50.3 fl (35.1-43.9); Red Blood Count 4.02 M/mm3 (4.2-5.4); White Blood Count 10.3 K/mm3 (4.4-11.0)
[2022-02-21 14:02] LABS: Anion Gap 13 (5-15); BUN 49 mg/dL (7-18); Calcium,Total 9.4 mg/dL (8.5-10.1); Chloride 107 mmol/L (98-107); Creatinine, Serum 6.96 mg/dL (0.55-1.02); EST Glomerular Filtration Rate 6 mL/min (>60); Est Glom Filt Rate - Afr Amer 8 mL/min (>60); Glucose 103 mg/dL (74-106); Potassium 3.2 mmol/L (3.5-5.1); Sodium Level 139 mmol/L (136-145)
[2022-02-21 14:03] LABS: Erythrocyte Sedimentation Rate 39 mm/hr (0-30)
[2022-02-21 14:43] VITALS: BP 144/73; PULSE 64; RESP 15; O2SAT 89
== END 2022-02-21 14:43 | disposition home or self-care (01) ==
PROVIDERS: Emergency Provider Emergency Medicine; PCP Family Medicine; Visit Provider Emergency Medicine
DX: M25.50 Pain in unspecified joint (principal); Z99.2 Dependence on renal dialysis; N18.6 End stage renal disease; M50.30 Other cervical disc degeneration, unspecified cervical region; J06.9 Acute upper respiratory infection, unspecified
CPT/HCPCS: 71046; 72040; 73110; 73610; 80048; 85025; 85652; 86140; 99284; A4216

== ENCOUNTER 2022-03-06 09:28 | Day surgery (SDC) | payer MEDICARE, OTHER, SELFPAY ==
[2022-03-06 10:01] VITALS: BP 138/68; PULSE 61; RESP 16; TEMP 36.9; O2SAT 100; BMI 21.9
[2022-03-06] MEDS: Lactated Ringers 1,000 ML 15 ML IV (10:06)
--- NOTE | 2022-03-06 13:04 | HP.PCM_ITS ---
HPI - General HPI Narrative CHRISTIANO AWAD, is a 71 F who presents for management of stones remaining after right ESWL. Informed consent was obtained. COUNTS INCLUDE 234 BEDS AT THE [facility] Medical History Acute kidney injury superimposed on CKD Ambulates with cane Anemia Anxiety Arterial steal syndrome Arthritis Back pain Chronic renal failure, stage 5 Depression Dietary restriction Discoloration of skin Easy bruising ESRD (end stage renal disease) on dialysis Gastric reflux History of edema History of renal dialysis History of renal disease History of stress test Hypertension Peritoneal dialysis catheter in place Post-menopausal Renal calculi Rheumatoid arthritis Seasonal allergies Shortness of breath on exertion Superficial thrombophlebitis of arm Urinary tract infection Vascular dialysis catheter in place Wears glasses Home Medications B12 Active 2,000 mcg PO DAILY 12/17/21 [History Last Taken Unknown] hydroxyzine HCl 50 mg PO QHS PRN 12/17/21 [History Last Taken 12/15/21] magnesium oxide 400 mg PO DAILY 12/17/21 [History Last Taken 12/15/21] potassium chloride 20 meq PO BID 12/17/21 [History Last Taken 12/15/21] calcitriol 1 mcg PO MOWEFR 01/06/22 [History Last Taken Unknown] calcium acetate(phosphat bind) 1,334 mg PO TID 01/06/22 [History Last Taken Unknown] ergocalciferol (vitamin D2) [Vitamin D2] 1,250 mcg PO .3 TIMES WEEKLY 01/06/22 [History Last Taken Unknown] sodium bicarbonate 1,300 mg PO BID 01/06/22 [History Last Taken Unknown] hydrocodone-acetaminophen 1 tab PO Q8H PRN PRN 7 Days #15 tablet 01/09/22 [Rx Last Taken Unknown] prednisone 40 mg PO DAILY #14 tab 02/21/22 [Rx Last Taken Unknown] Allergy/AdvReac Type Severity Reaction Status Date / Time adhesive tape Allergy Rash Verified 03/06/22 10:07 amoxicillin [From Augmentin] Allergy Swelling Verified 03/06/22 10:07 cephalexin [From Keflex] Allergy Swelling Verified 03/06/22 10:07 clavulanic acid Allergy Swelling Verified 03/06/22 10:07 [From Augmentin] latex Allergy Rash Verified 03/06/22 10:07 Penicillins [PCN] Allergy Swelling Verified 03/06/22 10:07 sulfamethoxazole Allergy rash,swellling, Verified 03/06/22 10:07 [From Bactrim] itching trimethoprim [From Bactrim] Allergy rash,swellling, Verified 03/06/22 10:07 itching walnut Allergy Itching Verified 03/06/22 10:07 GREEN BEANS Allergy Itching Uncoded 03/06/22 10:07 Family History Mother Heart disease Diabetes Hypertension Father Dementia Surgical History H/O hernia repair history Left AV Fistula Creation (~05/03/20) History of colonoscopy History of esophagogastroduodenoscopy (EGD) Hx of cystoscopy S/P bypass gastroenterostomy S/P hemorrhoidectomy Social History Smoking Status: Never smoker alcohol intake: never substance use type: does not use ROS Constitutional Constitutional: Reports fatigue; Denies anorexia, fever(s) or headache(s) Eyes Eyes: Denies change in vision ENT HEENT: Reports systems reviewed and no addt'l complaints, except as documented Cardiovascular Cardiovascular: Denies chest pain, dyspnea or irregular heart rhythm Respiratory/Chest Respiratory/Chest: Denies chest congestion, cough or dyspnea Gastrointestinal Gastrointestinal: Denies abdominal pain, nausea or vomiting Genitourinary Genitourinary: Denies urinary frequency, urinary hesitancy, urinary incontinence or urinary urgency Musculoskeletal Musculoskeletal: Reports systems reviewed and no addt'l complaints, except as documented Integumentary Integumentary: Reports systems reviewed and no addt'l complaints, except as documented Neurologic Neurologic: Reports systems reviewed and no addt'l complaints, except as documented Psychiatric Psychiatric: Reports systems reviewed and no addt'l complaints, except as documented Endocrine Endocrinology: Reports systems reviewed and no addt'l complaints, except as documented Hematologic/Lymphatic Hematologic/Lymphatic: Reports systems reviewed and no addt'l complaints, except as documented Allergic/Immunologic Allergic/Immunologic: Reports systems reviewed and no addt'l complaints, except as documented Vital Signs Vital Signs Vital Signs: 03/06/22 10:01 Temperature 98.5 F Temperature Source Temporal Pulse Rate 61 Respiratory Rate 16 Respiratory Pattern Normal Blood Pressure 138/68 H Blood Pressure Mean 91 Blood Pressure Source Monitor Blood Pressure Position Semi-Fowlers Blood Pressure Location Right Arm Pulse Ox 100 Oxygen Delivery Method Room Air Weight Weight: 63.503 kg Body Mass Index (BMI) 21.9 Physical Exam Const alert, oriented x3 and no apparent distress HEENT normocephalic, head/scalp atraumatic, hearing grossly normal bilaterally and external nose normal Eyes conjunctivae normal and no scleral icterus General Eye: normal appearance of both eyes Neck supple General: trachea midline Lymph Lymphatic: no lymphedema noted Chest inspection of chest normal Chest: symmetrical chest wall rise Resp normal respiratory effort, normal air movement, no retractions and no use of accessory muscles Cardio regular rate and regular rhythm GI soft to palpation, non-tender and non-distended no CVA tenderness and external exam normal Back/Spine no CVA tenderness Extremity normal to inspection Skin no rashes or lesions noted, no wounds, skin turgor normal, no jaundice, no petechiae and no mottling Neuro oriented x3, CN's II-XII intact bilaterally and moves all extremities Psych mental status grossly normal Assessment & Plan Assessment/Plan (1) Renal calculi: PLAN: proceed with ureteroscopy, laser lithotripsy, stone basket removal, right ureteral stent change
[2022-03-06] MEDS: Cefazolin 2 GM in 0.9% Normal Saline 100 ML IV (13:20)
--- NOTE | 2022-03-06 15:14 | PCM.DC ---
Discharge Instructions Diet Discharge Diet: No restrictions Activity Discharge Activity: Return to Normal Activity Dressing / Incision Call your doctor if you observe: Fever of 101 or Higher and Inability to have a bowel movement Follow Up Care Please Follow Up With: Cristina Kwok MD When: call office for appt Test Results: Test results from this visit will be discussed in further detail at your follow-up appointment, if applicable. Discharge Plan Admission Attending Provider: Cristina Kwok Primary Care Provider: Jewell Bowens Discharge Orders/Prescriptions Prescriptions: New oxycodone-acetaminophen [Percocet] 5-325 mg tablet 1 tab PO Q8H PRN (Reason: pain) 3 Days Qty: 10 RF: 0 ciprofloxacin HCl [Cipro] 250 mg tablet 250 mg PO BID Qty: 6 RF: 0 Continued hydroxyzine HCl 25 mg Tablet 50 mg PO QHS PRN (Reason: Itching) RF: 0 magnesium oxide 400 mg magnesium Tablet 400 mg PO DAILY RF: 0 B12 Active 1,000 mcg Tablet,Chewable 2,000 mcg PO DAILY RF: 0 potassium chloride 20 MEQ tablet,ER particles/crystals 20 meq PO BID RF: 0 sodium bicarbonate 650 mg tablet 1,300 mg PO BID RF: 0 ergocalciferol (vitamin D2) [Vitamin D2] 1,250 mcg (50,000 unit) Capsule 1,250 mcg PO .3 TIMES WEEKLY RF: 0 calcium acetate(phosphat bind) 667 mg Capsule 1,334 mg PO TID RF: 0 calcitriol 0.5 mcg Capsule 1 mcg PO MOWEFR RF: 0 hydrocodone-acetaminophen 1 TABLET tablet 1 tab PO Q8H PRN PRN (Reason: Pain) 7 Days Qty: 15 RF: 0 prednisone 20 mg tablet 40 mg PO DAILY Qty: 14 RF: 0 Referrals / Follow Up: Jewell Bowens DO [Primary Care Provider] - Disposition Disposition (needs filled in before D/C Order can be placed): Home, Self Care
[2022-03-06 15:18] VITALS: BP 138/68; BP 142/73; PULSE 69; RESP 16; TEMP 36.7; O2SAT 97
--- NOTE | 2022-03-06 15:20 | OP.PCM_ITS ---
Problems Associated Problem List Diagnoses (1) Renal calculi: Report of Operation Date of Procedure: 03/06/22 Pre-Operative Diagnosis: Right renal calculi Post-Operative Diagnosis: Same Surgery/Procedure Performed:: Cystoscopy, right ureteroscopy, holmium laser lithotripsy, stone basket extraction, right ureteral stent change Surgeon: Cristina Kwok Type of Anesthesia: General Specimen's removed: Stone fragments Description of Procedure: Patient was taken to the operating room and placed on the operating room table. Anesthesia monitored the head, neck, airway, IV access and vital signs throughout the case. Once anesthesia was appropriate ministered the patient was placed into dorsolithotomy position was prepped and draped in usual sterile fashion. The cystoscope was inserted through the urethra under direct visualization into the urinary bladder. The the indwelling right ureteral stent was observed. 2 Glidewire's were passed through the right ureteral orifice into the pelvis. The ureteral stent was removed with grasping forceps. A ureteral reaccessed sheath was placed over one of the Glidewire's with good positioning seen on fluoroscopic visualization. At this time the flexible ureteroscope was inserted through the reaccessed sheath into the renal pelvis were multiple calyces were identified filled with stone. The laser fiber was used to break several areas of the stone into smaller pieces until the anatomy of her calyces need further lithotripsy unsafe. Stone basket was used to remove all pieces that could safely be removed. This case was difficult and that her calyces were connected with infundibula to the renal pelvis that were long and more narrow than the stones. Once the positioning of the stones need further working on safe, the ureteroscope was used to directly visualize the entire length of the right ureter revealing no evidence of injury. The reaccessed sheath was removed. A 6 [place] 26 cm JJ stent was then inserted over the remaining safety wire. Good curling was achieved in the renal pelvis as well as the urinary bladder. The patient's bladder was then emptied and the case was terminated. She was awakened and taken to the recovery room in good condition there were no complications during this procedure. Grafts/Implants Used: 6 x 26 JJ stent Complications None Admit VTE Documentation VTE Present on Admission: Yes VTE Mechan Device Prophylaxis: SCD's VTE Pharm Prophylaxis ordered?: No Reason prophylaxis not ordered:: Treatment Not Indicated
[2022-03-06 15:30] VITALS: BP 122/70; BP 138/68; PULSE 72; RESP 16; O2SAT 97
[2022-03-06 15:44] VITALS: BP 137/69; BP 138/68; PULSE 70; RESP 16; TEMP 36.6; O2SAT 99
[2022-03-06 16:51] VITALS: BP 138/68; BP 145/79; PULSE 73; RESP 16; TEMP 36.6; O2SAT 99
== END 2022-03-06 16:57 | disposition home or self-care (01) ==
LOC: SDC 09:29 → AC 09:33
PROVIDERS: PCP Family Medicine; Visit Provider Urology
PROC: 0TJ98ZZ Inspection of Ureter, Via Natural or Artificial Opening Endoscopic (ICD-10-PCS; CPT 52352; principal; 2022-03-06 11:30)
DX: N20.0 Calculus of kidney (principal); I12.0 Hypertensive chronic kidney disease with stage 5 chronic kidney disease or end stage renal disease; N18.6 End stage renal disease; Z99.2 Dependence on renal dialysis; M06.9 Rheumatoid arthritis, unspecified; K21.9 Gastro-esophageal reflux disease without esophagitis; Z78.0 Asymptomatic menopausal state; Z79.899 Other long term (current) drug therapy
CPT/HCPCS: 52356; 76000; 82360; J7120; C2617; J2405

== ENCOUNTER 2022-04-13 05:56 | Day surgery (SDC) | payer MEDICARE, OTHER, SELFPAY ==
[2022-04-13 06:32] VITALS: BP 170/73; PULSE 77; RESP 16; TEMP 37.1; O2SAT 100; BMI 21.7
[2022-04-13] MEDS: Ciprofloxacin 200 MG/100 ML BAG 100 MG IV (07:44)
--- NOTE | 2022-04-13 07:45 | HP.PCM_ITS ---
HPI - General HPI Narrative CHRISTIANO AWAD, is a 72 F who presents for shockwave lithotripsy of right renal stones. Informed consent was obtained. [facility] Medical History Acute kidney injury superimposed on CKD Ambulates with cane Anemia Anxiety Arterial steal syndrome Arthritis Back pain Chronic renal failure, stage 5 Depression Dietary restriction Discoloration of skin Easy bruising ESRD (end stage renal disease) on dialysis Gastric reflux History of edema History of renal dialysis History of renal disease History of steroid therapy History of stress test Hypertension Peritoneal dialysis catheter in place Post-menopausal Renal calculi Rheumatoid arthritis Seasonal allergies Shortness of breath on exertion Superficial thrombophlebitis of arm Urinary tract infection Vascular dialysis catheter in place Wears glasses Home Medications hydroxyzine HCl 25 mg tablet 50 mg PO QHS PRN Itching 12/17/21 [History Last Taken 12/15/21] magnesium oxide 400 mg PO DAILY supplement 12/17/21 [History Last Taken 12/15/21] mecobalamin (vitamin B12) 1,000 mcg chewable tablet (B12 Active) 2,000 mcg PO DAILY vitamin 12/17/21 [History Last Taken Unknown] potassium chloride 20 mEq tablet,extended release(part/cryst) 20 meq PO BID supplement 12/17/21 [History Last Taken 12/15/21] calcitriol 0.5 mcg capsule 1 mcg PO MOWEFR 01/06/22 [History Last Taken Unknown] calcium acetate(phosphat bind) 667 mg capsule 1,334 mg PO TID 01/06/22 [History Last Taken Unknown] ergocalciferol (vitamin D2) 1,250 mcg (50,000 unit) capsule (Vitamin D2) 1,250 mcg PO .3 TIMES WEEKLY 01/06/22 [History Last Taken Unknown] sodium bicarbonate 650 mg tablet 1,300 mg PO BID 01/06/22 [History Last Taken Unknown] hydrocodone-acetaminophen 5-325mg 5mg-325mg 1 tab PO Q8H PRN PRN Pain 7 days #15 TABLETS 01/09/22 [Rx Last Taken Unknown] oxycodone-acetaminophen 5 mg-325 mg tablet (Percocet) 1 tab PO Q8H PRN pain 3 days #10 tabs 03/06/22 [Rx Last Taken Unknown] prednisone 20 mg tablet 40 mg PO DAILY PRN Radiologic Visualization 03/16/22 [History Last Taken Unknown] nitrofurantoin monohydrate/macrocrystals 100 mg capsule (Macrobid) 100 mg PO BID 04/13/22 [History Last Taken Unknown] Allergy/AdvReac Type Severity Reaction Status Date / Time adhesive tape Allergy Rash Verified 04/13/22 06:29 amoxicillin [From Augmentin] Allergy Swelling Verified 04/13/22 06:29 cephalexin [From Keflex] Allergy Swelling Verified 04/13/22 06:29 clavulanic acid Allergy Swelling Verified 04/13/22 06:29 [From Augmentin] latex Allergy Rash Verified 04/13/22 06:29 Penicillins [PCN] Allergy Swelling Verified 04/13/22 06:29 sulfamethoxazole Allergy rash,swellling, Verified 04/13/22 06:29 [From Bactrim] itching trimethoprim [From Bactrim] Allergy rash,swellling, Verified 04/13/22 06:29 itching walnut Allergy Itching Verified 04/13/22 06:29 GREEN BEANS Allergy Itching Uncoded 04/13/22 06:29 Family History Mother Heart disease Diabetes Hypertension Father Dementia Surgical History H/O hernia repair history Left AV Fistula Creation (~05/03/20) History of colonoscopy History of esophagogastroduodenoscopy (EGD) Hx of cystoscopy Hx of cystoscopy S/P bypass gastroenterostomy S/P hemorrhoidectomy Social History Smoking Status: Never smoker alcohol intake: never substance use type: does not use ROS Constitutional Constitutional: Reports fatigue and lethargy; Denies chills or fever(s) Eyes Eyes: Reports systems reviewed and no addt'l complaints, except as documented ENT HEENT: Reports systems reviewed and no addt'l complaints, except as documented Cardiovascular Cardiovascular: Reports systems reviewed and no addt'l complaints, except as documented Respiratory/Chest Respiratory/Chest: Reports systems reviewed and no addt'l complaints, except as documented Genitourinary Genitourinary: Reports urinary incontinence; Denies difficulty urinating or hematuria Musculoskeletal Musculoskeletal: Reports systems reviewed and no addt'l complaints, except as documented Integumentary Integumentary: Reports systems reviewed and no addt'l complaints, except as documented Neurologic Neurologic: Reports systems reviewed and no addt'l complaints, except as documented Psychiatric Psychiatric: Reports systems reviewed and no addt'l complaints, except as documented Endocrine Endocrinology: Reports systems reviewed and no addt'l complaints, except as documented Hematologic/Lymphatic Hematologic/Lymphatic: Reports systems reviewed and no addt'l complaints, except as documented Allergic/Immunologic Allergic/Immunologic: Reports systems reviewed and no addt'l complaints, except as documented Vital Signs Vital Signs Vital Signs: 04/13/22 06:32 04/13/22 06:32 Temperature 98.8 F Temperature Source Temporal Pulse Rate 77 Respiratory Rate 16 Respiratory Pattern Normal Blood Pressure 170/73 H Blood Pressure Mean 105 Blood Pressure Source Monitor Blood Pressure Position Semi-Fowlers Blood Pressure Location Right Arm Pulse Ox 100 Oxygen Delivery Method Room Air Weight Weight: 63 kg Body Mass Index (BMI) 21.7 Physical Exam Const alert, oriented x3 and no apparent distress General Appearance: cooperative, comfortable and well kempt HEENT normocephalic and head/scalp atraumatic Eyes General Eye: normal appearance of both eyes Neck supple General: trachea midline Lymph Lymphatic: no lymphedema noted Chest Chest: symmetrical chest wall rise Resp normal respiratory effort, normal air movement and no retractions Effort and Inspection: able to speak in complete sentences and symmetric chest movement Cardio regular rate and regular rhythm GI Palpation: soft no CVA tenderness Back/Spine no CVA tenderness Extremity General Extremity: normal exam except as noted Skin no rashes or lesions noted and no wounds Neuro oriented x3 and CN's II-XII intact bilaterally Psych mental status grossly normal and thought process normal Assessment & Plan Assessment/Plan (1) Renal calculi: PLAN: proceed with right extracorporeal shockwave lithotripsy
--- NOTE | 2022-04-13 08:03 | DCINST_ITS ---
Discharge Instructions Diet Discharge Diet: No restrictions Activity Discharge Activity: Return to Normal Activity Dressing / Incision Call your doctor if you observe: Fever of 101 or Higher, Inability to urinate and Inability to have a bowel movement Follow Up Care Please Follow Up With: Crsitina Kwok MD When: call office for apptRosio DIALLO day of follow up. Test Results: Test results from this visit will be discussed in further detail at your follow- up appointment, if applicable. Discharge Plan Admission Attending Provider: Cristina Kwok Primary Care Provider: Jewell Bowens Discharge Orders/Prescriptions Prescriptions: New oxycodone-acetaminophen [oxycodone-acetaminophen] 5-325 mg tablet 1 tab PO Q8H PRN PRN (Reason: Pain) 7 Days Qty: 20 0RF Continued hydroxyzine HCl 25 mg Tablet 50 mg PO QHS PRN (Reason: Itching) magnesium oxide 400 mg magnesium Tablet 400 mg PO DAILY B12 Active 1,000 mcg Tablet,Chewable 2,000 mcg PO DAILY potassium chloride 20 MEQ tablet,ER particles/crystals 20 meq PO BID sodium bicarbonate 650 mg tablet 1,300 mg PO BID Label Comments: TAKE 2 TABLETS BY MOUTH THREE TIMES DAILY ergocalciferol (vitamin D2) [Vitamin D2] 1,250 mcg (50,000 unit) Capsule 1,250 mcg PO .3 TIMES WEEKLY calcium acetate(phosphat bind) 667 mg Capsule 1,334 mg PO TID calcitriol 0.5 mcg Capsule 1 mcg PO MOWEFR hydrocodone-acetaminophen 1 TABLET tablet 1 tab PO Q8H PRN PRN (Reason: Pain) 7 Days Qty: 15 0RF oxycodone-acetaminophen [Percocet] 5-325 mg tablet 1 tab PO Q8H PRN (Reason: pain) 3 Days Qty: 10 0RF prednisone 20 mg tablet 40 mg PO DAILY PRN (Reason: Radiologic Visualization) nitrofurantoin monohyd/m-cryst [Macrobid] 100 mg Capsule 100 mg PO BID Rx Instructions: must administer with a meal/food Referrals / Follow Up: Jewell Bowens DO [Primary Care Provider] - Disposition Disposition (needs filled in before D/C Order can be placed): Home, Self Care
--- NOTE | 2022-04-13 08:09 | PCM.OPRPT ---
Problems Associated Problem List Diagnoses (1) Renal calculi: Report of Operation Date of Procedure: 04/13/22 Pre-Operative Diagnosis: right renal stones Post-Operative Diagnosis: same Surgery/Procedure Performed:: right renal extracorporeal shockwave lithotripsy Surgeon: Cristina Kwok Type of Anesthesia: General Description of Procedure: The patient is a 72-year-old female with a longstanding history of stones and a recent episode of obstruction with infection. She now presents for shockwave lithotripsy for her remaining right renal stone burden. Informed consent was obtained. The patient was taken to the operating room and placed on the lithotripsy table. Anesthesia monitored the head, neck, airway, IV access and vital signs throughout the case. Once anesthesia was appropriate ministered, the patient was placed into position with the lithotripter. The stone was easily identified. 3000 shocks were applied without difficulty and the stone appeared to be well fragmented at the conclusion of the case. The patient was then awakened and taken to the recovery room in good condition. There were no complications during the procedure. Grafts/Implants Used: none Complications none Admit VTE Documentation VTE Present on Admission: Yes VTE Mechan Device Prophylaxis: SCD's VTE Pharm Prophylaxis ordered?: No
[2022-04-13 08:40] VITALS: BP 121/66; BP 170/73; PULSE 79; RESP 16; TEMP 36.1; O2SAT 98
[2022-04-13 08:45] VITALS: BP 121/66; BP 170/73; PULSE 74; RESP 16; O2SAT 97
[2022-04-13 09:00] VITALS: BP 125/65; BP 170/73; PULSE 69; RESP 16; O2SAT 97
[2022-04-13 09:12] VITALS: BP 136/66; BP 170/73; PULSE 73; RESP 16; TEMP 36.1; O2SAT 98
[2022-04-13 10:11] VITALS: BP 129/68; BP 170/73; PULSE 75; RESP 16; TEMP 36.8; O2SAT 98
== END 2022-04-13 10:33 | disposition home or self-care (01) ==
LOC: SDC 05:56 → AC 05:57
PROVIDERS: PCP Family Medicine; Referring Provider Urology; Visit Provider Urology
PROC: (CPT 50590; principal; 2022-04-13 07:20)
DX: N20.0 Calculus of kidney (principal); Z99.2 Dependence on renal dialysis; I12.0 Hypertensive chronic kidney disease with stage 5 chronic kidney disease or end stage renal disease; N18.6 End stage renal disease; I77.89 Other specified disorders of arteries and arterioles
CPT/HCPCS: 50590; 00873; J7040; J0744; J2405

== ENCOUNTER 2022-05-09 19:02 | Inpatient (IN) | payer MEDICARE, OTHER, SELFPAY ==
[2022-05-09] VITALS (8 sets, daily range): BP systolic 144–154; BP diastolic 68–87; PULSE 78–102; RESP 16–18; TEMP 36.3–36.6; O2SAT 96–99; BMI 20.3; BMI 21.4
--- NOTE | 2022-05-09 19:32 | EKG12_ITS ---
Test Reason : DYSRHYTHMIA Blood Pressure : / mmHG Vent. Rate : 076 BPM Atrial Rate : 076 BPM P-R Int : 136 ms QRS Dur : 076 ms QT Int : 404 ms P-R-T Axes : 044 008 070 degrees QTc Int : 454 ms Normal sinus rhythm Nonspecific ST and T wave abnormality Abnormal ECG Confirmed by MILLIE SHERIFF, ESTHELA ([id number]), brands editor ANTONIA CARRION ([id number]) on 05/10/2022 12:46:52 PM Referred By: Confirmed By:ESTHELA PINTO MD
--- NOTE | 2022-05-09 19:34 | EX.ED.DYSGE1 ---
HPI History of Present Illness Chief Complaint: Weakness Informant: patient and family Narrative Narrative: 72-year-old female on peritoneal dialysis states that she is having generalized weakness. She states that she has spells like this in the past but this 1 seems more weak than normal. She states that normally last a couple weeks. She states that she feels short of breath she has difficulty ambulating around the house. She notes associated nausea and body aches. [facility] Medical History Acute kidney injury superimposed on CKD Ambulates with cane Anemia Anxiety Arterial steal syndrome Arthritis Back pain Chronic renal failure, stage 5 Depression Dietary restriction Discoloration of skin Easy bruising ESRD (end stage renal disease) on dialysis Gastric reflux History of edema History of renal dialysis History of renal disease History of steroid therapy History of stress test Hypertension Peritoneal dialysis catheter in place Post-menopausal Renal calculi Rheumatoid arthritis Seasonal allergies Shortness of breath on exertion Superficial thrombophlebitis of arm Urinary tract infection Vascular dialysis catheter in place Wears glasses Home Medications hydroxyzine HCl 25 mg tablet 50 mg PO QHS PRN Itching 12/17/21 [History Last Taken 12/15/21] magnesium oxide 400 mg PO DAILY supplement 12/17/21 [History Last Taken 12/15/21] mecobalamin (vitamin B12) 1,000 mcg chewable tablet (B12 Active) 2,000 mcg PO DAILY vitamin 12/17/21 [History Last Taken Unknown] potassium chloride 20 mEq tablet,extended release(part/cryst) 20 meq PO BID supplement 12/17/21 [History Last Taken 12/15/21] calcitriol 0.5 mcg capsule 1 mcg PO MOWEFR 01/06/22 [History Last Taken Unknown] calcium acetate(phosphat bind) 667 mg capsule 1,334 mg PO TID 01/06/22 [History Last Taken Unknown] ergocalciferol (vitamin D2) 1,250 mcg (50,000 unit) capsule (Vitamin D2) 1,250 mcg PO .3 TIMES WEEKLY 01/06/22 [History Last Taken Unknown] sodium bicarbonate 650 mg tablet 1,300 mg PO BID 01/06/22 [History Last Taken Unknown] hydrocodone-acetaminophen 5-325mg 5mg-325mg 1 tab PO Q8H PRN PRN Pain 7 days #15 TABLETS 01/09/22 [Rx Last Taken Unknown] oxycodone-acetaminophen 5 mg-325 mg tablet (Percocet) 1 tab PO Q8H PRN pain 3 days #10 tabs 03/06/22 [Rx Last Taken Unknown] prednisone 20 mg tablet 40 mg PO DAILY PRN Radiologic Visualization 03/16/22 [History Last Taken Unknown] nitrofurantoin monohydrate/macrocrystals 100 mg capsule (Macrobid) 100 mg PO BID 04/13/22 [History Last Taken Unknown] oxycodone-acetaminophen 5 mg-325 mg tablet 1 tab PO Q8H PRN PRN Pain 7 days #20 tabs 04/13/22 [Rx Last Taken Unknown] Allergy/AdvReac Type Severity Reaction Status Date / Time adhesive tape Allergy Rash Verified 05/09/22 19:07 amoxicillin [From Augmentin] Allergy Swelling Verified 05/09/22 19:07 cephalexin [From Keflex] Allergy Swelling Verified 05/09/22 19:07 clavulanic acid Allergy Swelling Verified 05/09/22 19:07 [From Augmentin] latex Allergy Rash Verified 05/09/22 19:07 Penicillins [PCN] Allergy Swelling Verified 05/09/22 19:07 sulfamethoxazole Allergy rash,swellling, Verified 05/09/22 19:07 [From Bactrim] itching trimethoprim [From Bactrim] Allergy rash,swellling, Verified 05/09/22 19:07 itching walnut Allergy Itching Verified 05/09/22 19:07 GRE[place] Allergy Itching Uncoded 05/09/22 19:07 Family History Mother Heart disease Diabetes Hypertension Father Dementia Surgical History H/O hernia repair history Left AV Fistula Creation (~05/03/20) History of colonoscopy History of esophagogastroduodenoscopy (EGD) Hx of cystoscopy Hx of cystoscopy S/P bypass gastroenterostomy S/P hemorrhoidectomy Social History Smoking Status: Never smoker alcohol intake: never substance use type: does not use ROS ROS ED ROS Narrative Generalized fatigue and weakness Constitutional Constitutional ED: Denies chills, fever(s) or weight loss Eyes Eyes: Denies change in vision or diplopia ENT ENT ED: Denies ear pain, rhinorrhea or sore throat Cardiovascular Cardiovascular: Denies chest pain, orthopnea, palpitations or racing heartbeat Respiratory/Chest Respiratory/Chest: Reports dyspnea; Denies cough, dyspnea on exertion or orthopnea Gastrointestinal Gastrointestinal: Reports nausea; Denies abdominal pain, diarrhea or vomiting Genitourinary Genitourinary ED: Denies dysuria, hematuria or urinary frequency Musculoskeletal Musculoskeletal: Reports myalgias; Denies arthralgias Integumentary Denies abscess or rash Neurologic Neurologic: Denies headache(s) or weakness Psychiatric Psychiatric: Denies anxiety, depression, suicidal ideation or suicidal thoughts Endocrine Endocrinology: Denies polydipsia, polyphagia or polyuria Allergic/Immunologic Allergic/Immunologic ED: Denies mouth swelling, tongue swelling or urticaria EXAM Physical Exam Const Vital Signs: 05/09/22 19:03 05/09/22 19:48 05/09/22 19:48 Temperature 97.3 F L Temperature Source Temporal Pulse Rate 91 80 Pulse Rate [Sitting (for 1 minute prior to obtaining)] Pulse Rate [Standing (for 1 minute prior to obtaining)] Respiratory Rate 16 18 Respiratory Effort Normal Respiratory Pattern Normal Blood Pressure 152/75 H Blood Pressure [Sitting (for 1 minute prior to obtaining)] Blood Pressure [Standing (for 1 minute prior to obtaining)] Blood Pressure Mean 100 Blood Pressure Mean [Sitting (for 1 minute prior to obtaining)] Blood Pressure Mean [Standing (for 1 minute prior to obtaining)] Pulse Ox 98 98 Oxygen Delivery Method Room Air Room Air 05/09/22 20:00 05/09/22 21:00 Temperature 98 F Temperature Source Oral Pulse Rate 80 Pulse Rate [Sitting (for 1 minute prior to obtaining)] 78 Pulse Rate [Standing (for 1 minute prior to obtaining)] 102 H Respiratory Rate 17 Respiratory Effort Respiratory Pattern Blood Pressure 144/68 H Blood Pressure [Sitting (for 1 minute prior to obtaining)] 144/76 H Blood Pressure [Standing (for 1 minute prior to obtaining)] 145/87 H Blood Pressure Mean 93 Blood Pressure Mean [Sitting (for 1 minute prior to obtaining)] 98 Blood Pressure Mean [Standing (for 1 minute prior to obtaining)] 106 Pulse Ox 96 Oxygen Delivery Method Room Air Positive well nourished and well developed General Appearance ED: well developed HEENT Reports normocephalic, head/scalp atraumatic and moist mucous membranes Eyes PERRL and EOMs intact bilaterally Neck no lymphadenopathy, supple and no JVD Resp normal respiratory effort and clear to auscultation bilaterally Cardio regular rate, regular rhythm and no murmurs GI normal to inspection, nondistended, normoactive bowel sounds and non-tender Palpation: soft Back/Spine no CVA tenderness and normal ROM Extremity normal to inspection General Extremety ED: Negative for edema General Extremity: Negative for edema Neuro oriented x3 and CN's II-XII intact bilaterally Sensorium / Orientation: alert Motor Exam: strength 5/5 throughout Psych mental status grossly normal Psych Narrative: Patient appears to be depressed regarding chronic health issues. Mood & Affect: depressed and tearful Skin no rashes or lesions noted and no wounds MDM MDM MDM Narrative Medical decision making narrative: Basic blood work shows a hemoglobin 9.6 which is a chronic anemia of disease for her. Creatinine 7.36. Troponin elevated 3574. Potassium 3.2. Urinalysis greater than 100 white cells negative nitrates rare bacteria this will be sent for culture. My interpretation of the chest x-ray is no acute process. Her EKG is a normal sinus rhythm. In speaking with her again she now notes that her heart did feel heavy today. I spoke with our senior sales representative babatunde Real we administered aspirin and placed her on a heparin bolus and drip. I spoke with our hospitalist will be down to admit the patient. Lab Data Attestation: I reviewed the patient's lab results. Labs: Laboratory Results - last 24 hr 05/09/22 05/09/22 05/09/22 19:50 19:50 20:12 WBC 9.9 RBC 3.35 L Hgb 9.6 L Hct 29.9 L MCV 89.3 MCH 28.7 MCHC 32.1 RDW Std Deviation 45.3 H RDW Coeff of [place] 14.1 Plt Count 249 MPV 11.3 Immature Gran % (Auto) 0.900 Neut % (Auto) 72.9 H Lymph % (Auto) 15.8 L [place] % (Auto) 7.2 Eos % (Auto) 2.6 Baso % (Auto) 0.6 Absolute Neuts (auto) 7.2 Absolute Lymphs (auto) 1.57 Nucleated RBC % 0 Sodium 139 Potassium 3.2 L Chloride 107 Carbon Dioxide 21.0 Anion Gap 11 BUN 60 H Creatinine 7.36 H Estim Creat Clear Calc 6.34 Est GFR (MDRD) Af Amer 7 L Est GFR (MDRD) Non-Af 6 L BUN/Creatinine Ratio 8.2 L Glucose 122 H Calcium 8.9 Magnesium 1.4 L Total Bilirubin 0.30 AST 26 ALT 15 Alkaline Phosphatase 124 H Troponin I High Sens 3574 H* Total Protein 5.7 L Albumin 2.5 L Globulin 3.2 Albumin/Globulin Ratio 0.8 L Lipase 162 TSH 2.77 Urine Color Yellow Urine Clarity Sl. Cloudy Urine pH 6.0 Ur Specific [place] 1.015 Urine Protein 100 H Urine Glucose (UA) 100 H Urine Ketones Negative Urine Occult Blood 50 H Urine Nitrite Negative Urine Bilirubin Negative Urine Urobilinogen Normal Ur Leukocyte Esterase 500 H Urine RBC 5-10 SEEN Urine WBC >100 SEEN Ur Squamous Epith Cells 5-10 SEEN Amorphous Sediment 1+ URATE Urine Bacteria RARE Urine Mucus 0 SEEN Radiography Diagnostic Testing: Clinical Impression(s) from Imaging Studies Chest X-Ray 05/09/22 20:25 IMPRESSION: No acute cardiopulmonary disease or major interval change. Electronically Signed: Francisco Long DO at 20:46 EDT Reading Location ID and State: [address] [place] [address] Tel [phone], Service support , EKG Initial EKG: Attestation: I personally reviewed and interpreted this EKG as follows: Comments: Normal sinus rhythm with a ventricular rate of 76 bpm Discharge Plan Triage Chief Complaint: Weakness ED Provider: Eric Gregory Dx/Rx/DC Orders Clinical Impression: Hypertension, NSTEMI, initial episode of care, ESRD (end stage renal disease) on dialysis Primary Care Provider: Jewell Bowens Disposition Disposition: Acute [facility]
[2022-05-09 20:00] LABS: Absolute Lymphocyte Count 1.57 X10^3/uL (0.83-4.51); Absolute Neutrophil Count 7.2 X10^3/uL (2.0-7.7); Basophil# 0.06 X10^3/uL; Basophil% 0.6 % (0-1); Eosinophil# 0.26 X10^3/uL; Eosinophils% 2.6 % (0-5); Hematocrit 29.9 % (37-47); Hemoglobin 9.6 g/dL (12.0-15.0); Lymphocyte # 1.57 X10^3/ul (0.83-4.51); Lymphocyte % 15.8 % (19-41); Mean Corp Hgb Conc 32.1 g/dL (32-36); Mean Corpuscular Hgb 28.7 pg (27.0-32.0); Mean Corpuscular Volume 89.3 fL (81-99); Mean Platelet Vol. 11.3 fl (6.2-12.0); Monocyte# 0.72 X10^3/uL; Monocyte% 7.2 % (0-10); NRBC Flagged by Analyzer 0 % (0-5); Neutrophil # 7.24 X10^3/uL (2.7-7.7); Neutrophil % 72.9 % (47-70); Platelet Count 249 K/mm3 (150-450); RBC Distribution Width CV 14.1 % (11.6-14.6); RBC Distribution Width SD 45.3 fl (35.1-43.9); Red Blood Count 3.35 M/mm3 (4.2-5.4); White Blood Count 9.9 K/mm3 (4.4-11.0)
[2022-05-09 20:17] LABS: Mucous, Urine 0 SEEN /hpf (<or=2+)
--- NOTE | 2022-05-09 20:25 | RAD_ITS ---
STUDY: X-RAY CHEST REASON FOR EXAM: Female, 72 years old. Dyspnea. TECHNIQUE: Single AP portable view of the chest. COMPARISON: 02/21/2022. FINDINGS: The lungs are clear and expanded. There is no demonstrated pleural abnormality. Normal size heart. Normal mediastinum and mame. Normal visualized pulmonary arteries. There is atherosclerotic calcification of the aortic arch with tortuosity. No visualized osseous changes. There is no demonstrated abnormality of the visualized soft tissue structures of the upper abdomen. RAD/Chest 1 View (Portable) IMPRESSION: No acute cardiopulmonary disease or major interval change. Electronically Signed: Francisco Long DO at 20:46 EDT ,
[2022-05-09 20:30] LABS: Color, Urine Yellow (Yellow); Glucose, Dipstick 100 mg/dl (Normal); Ketone-Dipstick Negative (Negative); Leukocyte Esterase-Dipstick 500 /ul (Negative); Nitrite-Dipstick Negative (Negative); Occult Blood-Urine 50 /ul (Negative); Protein-Dipstick 100 mg/dl (Negative); Specific Gravity, Urine 1.015 (1.002-1.030); Urine Bilirubin Dipstick Negative (Negative); Urine Clarity Sl. Cloudy (Clear); Urine Urobilinogen Normal (Normal)
[2022-05-09 20:41] LABS: ALB/GLOB Ratio 0.8 RATIO (0.9-2.4); AST(SGOT) 26 U/L (15-37); Alanine Aminotransfer ALT/SGPT 15 U/L (13-56); Albumin, Serum 2.5 g/dL (3.2-5.0); Alkaline Phosphatase 124 U/L (45-117); Anion Gap 11 (5-15); BUN 60 mg/dL (7-18); BUN/Creat Ratio 8.2 RATIO (10-20); Calcium,Total 8.9 mg/dL (8.5-10.1); Chloride 107 mmol/L (98-107); Creatinine, Serum 7.36 mg/dL (0.55-1.02); EST Glomerular Filtration Rate 6 mL/min (>60); Est Glom Filt Rate - Afr Amer 7 mL/min (>60); Estimated Creatinine Clearance 6.34 ml/min; Globulin 3.2 g/dL (2.2-4.2); Glucose 122 mg/dL (74-106); Lipase 162 U/L (73-393); Magnesium 1.4 mg/dL (1.6-2.6); Potassium 3.2 mmol/L (3.5-5.1); Protein, Total 5.7 g/dL (6.4-8.2); Sodium Level 139 mmol/L (136-145); Thyroid Stim Hormone (TSH) 2.77 uIU/mL (0.358-3.74); Troponin-I HS (w/2H Reflex) 3574 pg/mL (3.0-54.0)
--- NOTE | 2022-05-09 20:59 | PCM.HP.STD ---
HPI - General General Date of Admission: 05/09/22 Date of Service: 05/09/22 Chief Complaint: Weakness, fatigue, dyspnea. HPI Narrative The patient is a 72 y/o F w/ PMHx: ESRD on PD, Chronic anemia/AOCD, HTN, Depression and Anxiety, GERD, Rheumatoid arthritis, recent 04/13/22 right renal extracorporeal shockwave lithotripsy with history of obstruction with complicated UTI with placement ureteral stent per Dr. Kwok Who presents to the [facility] ED on 05/09/22 with history of worsening generalized weakness progressively over the last 1 to 2 weeks with mild dyspnea with difficulty ambulating around her house with mild myalgias as well as nausea without emesis prompting family to bring her for evaluation. She denies any specific chest discomfort. She notes that she has been having difficulty performing her normal daily tasks and her daughter who now lives with her has been assisting her. She does report that her mood has been decreased and that she has been depressed and anxious because she feels as though she is losing some of her independence and she tends to be previously a very active individual. Work-up in the ED included T97.3, heart rate 91, BP 152/75, respiratory rate 16, 98% on room air, CBC with WC 9.9, hemoglobin 9.6, platelet 249 without marked shift, CMP with potassium 3.2, BUN/creatinine 60/7.36, glucose 122, magnesium 1.4, alk phos 124, troponin 3574, lipase 162, TSH 2.77, urinalysis pending on requested evaluation of patient, chest x-ray without acute cardiopulmonary findings, EKG with sinus rhythm with no acute evidence of ischemia. [facility] Medical History Acute kidney injury superimposed on CKD Ambulates with cane Anemia Anxiety Arterial steal syndrome Arthritis Back pain Chronic renal failure, stage 5 Depression Dietary restriction Discoloration of skin Easy bruising ESRD (end stage renal disease) on dialysis Gastric reflux History of edema History of renal dialysis History of renal disease History of steroid therapy History of stress test Hypertension Peritoneal dialysis catheter in place Post-menopausal Renal calculi Rheumatoid arthritis Seasonal allergies Shortness of breath on exertion Superficial thrombophlebitis of arm Urinary tract infection Vascular dialysis catheter in place Wears glasses Home Medications hydroxyzine HCl 25 mg tablet 50 mg PO QHS PRN Itching 12/17/21 [History Last Taken 12/15/21] magnesium oxide 400 mg PO DAILY supplement 12/17/21 [History Last Taken 12/15/21] mecobalamin (vitamin B12) 1,000 mcg chewable tablet (B12 Active) 2,000 mcg PO DAILY vitamin 12/17/21 [History Last Taken Unknown] potassium chloride 20 mEq tablet,extended release(part/cryst) 20 meq PO BID supplement 12/17/21 [History Last Taken 12/15/21] calcitriol 0.5 mcg capsule 1 mcg PO MOWEFR Check with primary doctor 01/06/22 [History Last Taken Unknown] calcium acetate(phosphat bind) 667 mg capsule 1,334 mg PO TID Check with primary doctor 01/06/22 [History Last Taken Unknown] ergocalciferol (vitamin D2) 1,250 mcg (50,000 unit) capsule (Vitamin D2) 1,250 mcg PO .3 TIMES WEEKLY Check with primary doctor 01/06/22 [History Last Taken Unknown] sodium bicarbonate 650 mg tablet 1,300 mg PO BID Check with primary doctor 01/06/22 [History Last Taken Unknown] hydrocodone-acetaminophen 5-325mg 5mg-325mg 1 tab PO Q8H PRN PRN Pain 7 days #15 TABLETS 01/09/22 [Rx Last Taken Unknown] oxycodone-acetaminophen 5 mg-325 mg tablet (Percocet) 1 tab PO Q8H PRN pain 3 days #10 tabs 03/06/22 [Rx Last Taken Unknown] prednisone 20 mg tablet 40 mg PO DAILY PRN Radiologic Visualization 03/16/22 [History Last Taken Unknown] Allergy/AdvReac Type Severity Reaction Status Date / Time adhesive tape Allergy Rash Verified 05/09/22 19:07 amoxicillin [From Augmentin] Allergy Swelling Verified 05/09/22 19:07 cephalexin [From Keflex] Allergy Swelling Verified 05/09/22 19:07 clavulanic acid Allergy Swelling Verified 05/09/22 19:07 [From Augmentin] latex Allergy Rash Verified 05/09/22 19:07 Penicillins [PCN] Allergy Swelling Verified 05/09/22 19:07 sulfamethoxazole Allergy rash,swellling, Verified 05/09/22 19:07 [From Bactrim] itching trimethoprim [From Bactrim] Allergy rash,swellling, Verified 05/09/22 19:07 itching walnut Allergy Itching Verified 05/09/22 19:07 [place] Allergy Itching Uncoded 05/09/22 19:07 Family History Mother Heart disease Diabetes Hypertension Father Dementia Surgical History H/O hernia repair history Left AV Fistula Creation (~05/03/20) History of colonoscopy History of esophagogastroduodenoscopy (EGD) Hx of cystoscopy Hx of cystoscopy S/P bypass gastroenterostomy S/P hemorrhoidectomy Social History (Updated 05/09/22 @ 23:[address] Libby Wick MD) household members: other details: Lives with her daughter. Smoking Status: Never smoker alcohol intake: never substance use type: does not use ROS ROS Narrative Admission Review of Systems: CONSTITUTIONAL: No weight loss, fever, chills, + weakness or fatigue. HEENT: Eyes: No visual loss, blurred vision, double vision or yellow sclerae. Ears, Nose, Throat: No hearing loss, sneezing, congestion, runny nose or sore throat. SKIN: No rash or itching, lesions, wounds. CARDIOVASCULAR: No chest pain, chest pressure or chest discomfort, palpitations, edema, orthopnea, syncopal events. RESPIRATORY: + shortness of breath, No cough or sputum, wheezing, hemoptysis. GASTROINTESTINAL: + anorexia, nausea, vomiting, No diarrhea, abdominal pain, melena, BRBPR. GENITOURINARY: No dysuria, frequency, urgency or retention. NEUROLOGICAL: No headache, dizziness, syncope, paralysis, ataxia, numbness or tingling in the extremities, focal weakness, change in bowel or bladder control, seizure. MUSCULOSKELETAL: + muscle, back pain, joint pain or stiffness. HEMATOLOGIC: + anemia, bleeding or bruising. LYMPHATICS: No enlarged nodes. No history of splenectomy. PSYCHIATRIC: + history of depression or anxiety. ENDOCRINOLOGIC: No reports of sweating, cold or heat intolerance. No polyuria or polydipsia. ALLERGIES: No history of asthma, hives, eczema or rhinitis. Vital Signs Vital Signs Vital Signs: 05/09/22 19:03 05/09/22 19:48 05/09/22 19:48 Temperature 97.3 F L Temperature Source Temporal Pulse Rate 91 80 Pulse Rate [Sitting (for 1 minute prior to obtaining)] Pulse Rate [Standing (for 1 minute prior to obtaining)] Respiratory Rate 16 18 Respiratory Effort Normal Respiratory Pattern Normal Blood Pressure 152/75 H Blood Pressure [Sitting (for 1 minute prior to obtaining)] Blood Pressure [Standing (for 1 minute prior to obtaining)] Blood Pressure Mean 100 Blood Pressure Mean [Sitting (for 1 minute prior to obtaining)] Blood Pressure Mean [Standing (for 1 minute prior to obtaining)] Pulse Ox 98 98 Oxygen Delivery Method Room Air Room Air 05/09/22 20:00 Temperature Temperature Source Pulse Rate Pulse Rate [Sitting (for 1 minute prior to obtaining)] 78 Pulse Rate [Standing (for 1 minute prior to obtaining)] 102 H Respiratory Rate Respiratory Effort Respiratory Pattern Blood Pressure Blood Pressure [Sitting (for 1 minute prior to obtaining)] 144/76 H Blood Pressure [Standing (for 1 minute prior to obtaining)] 145/87 H Blood Pressure Mean Blood Pressure Mean [Sitting (for 1 minute prior to obtaining)] 98 Blood Pressure Mean [Standing (for 1 minute prior to obtaining)] 106 Pulse Ox Oxygen Delivery Method Weight Weight: 130 lb Body Mass Index (BMI) 20.3 Physical Exam Narrative Physical Examination: General: Awake, alert, oriented x 3 and cooperative, seated upright in the ED bed, fatigued with a flat affect. Skin: Normal color, normal turgor, no icterus, no cyanosis. HEENT: AT/NC, EOMI, PERRLA, mildly dry MM, no carotid bruits or JVD noted. Lungs: Diminished, greater bases, appropriate effort, no rales, ronchi or wheezing. Heart: Currently regular rate and rhythm; no gallop, rub audible. Abdomen: Soft, NTTP, ND, mildly hyperactive BS, no HSM. Extremities: No cyanosis, clubbing, or edema, bilateral lower extremity tender to palpation which is chronic patient notes. Neurological: Patient awake, alert, oriented as noted, cognitive function appears intact; pupils equally reactive to light and accommodation, cranial nerves II-XII grossly normal, moving all 4 extremities, no focal deficits, strength moderately global decreased. Psychiatric: Affect appears fatigued, flat, admits to underlying depression and anxiety, was noted to have been tearful with the ED physician regarding discussions about her PD. Results Lab / Micro Data Result Diagrams: 05/09/22 19:50 05/09/22 19:50 Labs: Laboratory Results - last 24 hr 05/09/22 19:50: WBC 9.9, RBC 3.35 L, Hgb 9.6 L, Hct 29.9 L, MCV 89.3, MCH 28.7, MCHC 32.1, RDW Std Deviation 45.3 H, RDW Coeff of [place] 14.1, Plt Count 249, MPV 11.3, Immature Gran % (Auto) 0.900, Neut % (Auto) 72.9 H, Lymph % (Auto) 15.8 L, [place] % (Auto) 7.2, Eos % (Auto) 2.6, Baso % (Auto) 0.6, Absolute Neuts (auto) 7.2, Absolute Lymphs (auto) 1.57, Nucleated RBC % 0 05/09/22 19:50: Sodium 139, Potassium 3.2 L, Chloride 107, Carbon Dioxide 21.0, Anion Gap 11, BUN 60 H, Creatinine 7.36 H, Estim Creat Clear Calc 6.34, Est GFR (MDRD) Af Amer 7 L, Est GFR (MDRD) Non-Af 6 L, BUN/Creatinine Ratio 8.2 L, Glucose 122 H, Calcium 8.9, Magnesium 1.4 L, Total Bilirubin 0.30, AST 26, ALT 15, Alkaline Phosphatase 124 H, Troponin I High Sens 3574 H*, Total Protein 5.7 L, Albumin 2.5 L, Globulin 3.2, Albumin/Globulin Ratio 0.8 L, Lipase 162, TSH 2.77 Radiology Impression Chest X-Ray 05/09/22 20:25 IMPRESSION: No acute cardiopulmonary disease or major interval change. Electronically Signed: Francisco Long DO at 20:46 EDT Reading Location ID and State: [facility] / [place] Tel [phone], Service support , Assessment & Plan Assessment/Plan (1) NSTEMI, initial episode of care: PLAN: Plan The patient is a 72 y/o F w/ PMHx: ESRD on PD, Chronic anemia/AOCD, HTN, Depression and Anxiety, GERD, Rheumatoid arthritis, recent 04/13/22 right renal extracorporeal shockwave lithotripsy with history of obstruction with complicated UTI with placement ureteral stent per Dr. Kwok Who presents to the [facility] ED on 05/09/22 with history of worsening generalized weakness progressively over the last 1 to 2 weeks with mild dyspnea with difficulty ambulating around her house with mild myalgias as well as nausea without emesis prompting family to bring her for evaluation. #1. Acute NSTEMI: EKG in ED w/ sinus rhythm with no acute evidence of ischemia, CXR w/ no acute cardiopulmonary findings. Trop elevated, 3574. Will admit to PCU, maintain on a monitored bed, continue serial cardiac enzymes and EKGs, supplement magnesium and potassium as noted, initiate and continue heparin drip, continue medical management w/ asa, add low dose BB, add low-moderate dose statin given age w/ AM FLP. ECHO requested. Cardiology consulted, pending. Maintain NPO after midnight. ASA, NG, morphine. #2. Hypokalemia, hypomagnesia: Admission K+ 3.2, magnesium obtained per ED noted to be 1.4, supplementation given, repeat level in AM. #3. Anxiety and depression, suspect uncontrolled: Patient with very flat affect and tearful in the ED upon initial evaluation, complicated by acute presentation as noted #1, continue treatment as noted above and pending patient response may need to consider starting a low-dose sertraline versus mirtazapine pending patient oral intake. Will benefit from counseling, case management consulted. #4. Failure to thrive, adult, complicated by #1, #2, #3: We will continue treatments as noted above, therapies consulted, case management consulted for disposition. #5. ESRD: Patient on peritoneal dialysis, will consult nephrology Dr. Keene/Dr. Victor and continue patient home regimen, continue calcitriol, calcium acetate, sodium bicarb supplementation. #6. Hypertension: Patient with prior history, not on any regimen per current list, potentially secondary to hypotension related with PD status transition, will add low dose BB given acute presentation as noted #1 cautiously and monitor with hold as needed, PRN IV hydralazine. #7. Chronic anemia/AOCD: Admission hemoglobin 9.6, baseline appears 9-10, stable, trend. #8. Rheumatoid arthritis: We will continue patient as needed pain regimen, maintain on fall precautions, therapies and case management consulted. #9. GERD: Not currently on regimen per list, may add PPI if necessary. #10. History complicated UTI with ureteral calculi obstruction: Status post most recent 04/13/2022 intervention, had planned follow-up this coming week however given acute presentation will need to be deferred. Patient's urologist, Dr. Kwok updated about patient current admission. #11. DVT prophylaxis: SCDs, heparin drip as noted above. #12. CODE status: Patient CARLI is her daughter who is present and living will is currently in place. Discussed CODE status at length including difference between FULL code, DNR-CCA and DNR-CC status. Following discussions about the differences in these status, requested DNR-CCA, no intubation status, amenable to medical interventions but not aggressive. Advanced Care Planning Face to Face Time: 16 minutes. Charges/Coding Visit Charges Inpatient E&M: 65144 Init Hosp L3 Procedures Hospitalists Procedures: 60878 Advncd Care Plan 30 Min
[2022-05-09 21:00] LABS: Amorphous Sediment 1+ URATE; Bacteria RARE /hpf (None Seen); Red Blood Cells-Urine 5-10 SEEN /hpf (0-5); Squamous Epithelial Cells - UA 5-10 SEEN /hpf (5-10); White Blood Cells >100 SEEN /hpf (0-5)
--- NOTE | 2022-05-09 21:12 | EKG12_ITS ---
Test Reason : REPEAT EKG Blood Pressure : / mmHG Vent. Rate : 080 BPM Atrial Rate : 080 BPM P-R Int : 138 ms QRS Dur : 080 ms QT Int : 400 ms P-R-T Axes : 037 016 090 degrees QTc Int : 461 ms Sinus rhythm with Premature supraventricular complexes and with occasional Premature ventricular comp lexes Nonspecific T wave abnormality Abnormal ECG Confirmed by MILLIE SHERIFF, ESTHELA ([id number]), fan mail editor ANTOINA CARRION ([id number]) on 05/10/2022 12:47:11 PM Referred By: RUDOLPH Confirmed By:ESTHELA PINTO MD
[2022-05-09] MEDS: Aspirin 325 MG Tablet PO (21:32)
[2022-05-09 21:37] LABS: Prothrombin Time (Protime)PT. 12.6 SECONDS (11.7-14.9)
[2022-05-09 21:38] LABS: Partial Thromboplast Time 28.1 Seconds (24.1-36.2)
[2022-05-09 21:57] LABS: Reflex Troponin-HS? (from REC) Y
--- NOTE | 2022-05-09 22:08 | EKG12_ITS ---
Test Reason : pcu admit Blood Pressure : / mmHG Vent. Rate : 069 BPM Atrial Rate : 069 BPM P-R Int : 136 ms QRS Dur : 076 ms QT Int : 430 ms P-R-T Axes : 034 017 055 degrees QTc Int : 460 ms Normal sinus rhythm Nonspecific ST and T wave abnormality Abnormal ECG When compared with ECG of 17-DEC-2021 11:44, Nonspecific T wave abnormality now evident in Inferior leads T wave inversion now evident in Lateral leads Confirmed by MILLIE SHERIFF, ESTHELA ([id number]), editorial director ANTONIA CARRION ([id number]) on 05/11/2022 12:59:34 PM Referred By: Confirmed By:ESTHELA PINTO MD
--- NOTE | 2022-05-09 22:08 | ECHOD_ITS ---
Reason For Study: NSTEMI Procedure This was a 2D Doppler, Color Flow transthoracic echocardiogram. The study was technically difficult. Exam performed portable in patient room. Left Ventricle Normal LV size. Sigmoid septum. Segmental dysfunction with preserved ejection fraction (see wall motion). The estimated ejection fraction is 55 %. Diastolic function is indeterminate. Posterior- Basal: Hypokinetic. Infero-Basal: Hypokinetic. Right Ventricle Normal RV size. Normal systolic function. Atria Normal left atrium. Normal right atrium. No doppler evidence for ASD. Mitral Valve There is moderate to severe mitral annular calcification. Extension of the mitral annular calcification onto the base of the posterior mitral valve leaflet. Trivial mitral valve insufficiency. Tricuspid Valve Normal tricuspid valve. Trivial tricuspid valve insufficiency. Unable to estimate RV systolic pressure/pulmonary artery pressure due to technically difficult study. Aortic Valve Trisinus/trileaflet aortic valve. Mild diffuse aortic valve thickening. Trivial aortic valve insufficiency. Pulmonic Valve The pulmonic valve is not well visualized. Great Vessels The aortic root is not well visualized. Pericardium/Pleural No pericardial effusion. MMode/2D Measurements & Calculations LVIDd: 3.2 cm IVSd: 1.1 cm LAV(MOD-bp): 55.2 ml LVIDs: 1.9 cm LVPWd: 0.80 cm LAV(MOD-bp) Indexed: 32.2 ml/m2 FS: 41.9 % LAV(MOD-sp2): 54.4 ml LAV(MOD-sp4): 54.9 ml SV(MOD-sp4): 35.2 ml LVAd ap4: 22.7 cm2 LVAd ap2: 23.7 cm2 LVLd ap4: 7.8 cm LVLd ap2: 7.8 cm EDV(MOD-sp4): 54.8 ml EDV(MOD-sp2): 61.3 ml EDV(sp4-el): 55.7 ml EDV(sp2-el): 61.1 ml LVAs ap4: 11.7 cm2 LVAs ap2: 11.8 cm2 LVLs ap4: 6.0 cm LVLs ap2: 6.5 cm ESV(MOD-sp4): 19.6 ml ESV(MOD-sp2): 19.9 ml ESV(sp4-el): 19.3 ml ESV(sp2-el): 18.0 ml EF(MOD-sp4): 64.3 % EF(MOD-sp2): 67.5 % EF(sp4-el): 65.4 % SV(MOD-sp2): 41.4 ml SV(sp4-el): 36.4 ml LA A4 area: 19.0 cm2 LA dimension(2D): 3.8 cm Doppler Measurements & Calculations MV E max gurmeet: 95.2 cm/sec Lat Peak E' Gurmeet: 6.1 cm/sec Med Peak E' Gurmeet: 5.4 cm/sec MV A max gurmeet: 132.3 cm/sec E/E' lat: 15.6 E/E' med: 17.6 MV E/A: 0.72 Ao V2 max: 141.0 cm/sec LV V1 max: 115.8 cm/sec PA V2 max: 100.1 cm/sec Ao max P.0 mmHg LV V1 max P.4 mmHg ECHO/Echo Complete Interpretation Summary The study was technically difficult. Segmental dysfunction with preserved ejection fraction (see wall motion). The estimated ejection fraction is 55 %. Sigmoid septum. There is moderate to severe mitral annular calcification. Extension of the mitral annular calcification onto the base of the posterior mi tral valve leaflet. Trivial mitral valve insufficiency. Trivial tricuspid valve insufficiency. Mild diffuse aortic valve thickening. Trivial aortic valve insufficiency. Unable to estimate RV systolic pressure/pulmonary artery pressure due to techni dominic difficult study. Diastolic function is indeterminate. Ordering Physician: Libby Wick Referring Physician: Jewell Bowens Performed By: Kathya Lino, RDCS, RVT
[2022-05-09] MEDS: 0.9% Normal Saline 1,000 ML 75 ML IV (22:24)
[2022-05-09] MEDS: Carvedilol 3.125 MG TABLET PO (22:33)
[2022-05-09] MEDS: Sodium Bicarbonate 650 MG Tablet 1300 MG PO (22:33)
[2022-05-09] MEDS: Calcium Acetate 667 MG Capsule 1334 MG PO (22:33)
[2022-05-09] MEDS: Atorvastatin Calcium 20 MG Tablet PO (22:33)
[2022-05-09] MEDS: Potassium Chloride Oral Tablet 20 MEQ 40 MEQ PO (22:35)
[2022-05-09] MEDS: Heparin Injection (Vial) 5,000 UNIT/ML VIAL 4500 UNIT IV (22:55)
[2022-05-09] MEDS: HEPARIN/D5w 25,000 UNITS 25,000 UNITS/250 ML IV.SOLN. 10 UNITS CONT INF (22:58)
[2022-05-09] MEDS: 0.9% Saline Lock 10 ML Syringe IV (23:08)
[2022-05-09 23:20] LABS: Troponin-I HS 3856 pg/mL (3.0-54.0)
--- NOTE | 2022-05-09 23:31 | NURSING ---
[facility] answering service called about diaysis
[2022-05-10] VITALS (18 sets, daily range): BP systolic 96–145; BP diastolic 33–98; PULSE 60–80; RESP 12–18; TEMP 36.3–36.8; O2SAT 96–100
[2022-05-10 03:47] LABS: Troponin-I HS 4304 pg/mL (3.0-54.0)
[2022-05-10 05:38] LABS: Absolute Lymphocyte Count 2.04 X10^3/uL (0.83-4.51); Absolute Neutrophil Count 5.8 X10^3/uL (2.0-7.7); Basophil# 0.06 X10^3/uL; Basophil% 0.6 % (0-1); Eosinophil# 0.48 X10^3/uL; Eosinophils% 5.1 % (0-5); Hematocrit 25.1 % (37-47); Lymphocyte # 2.04 X10^3/ul (0.83-4.51); Lymphocyte % 21.9 % (19-41); Mean Corp Hgb Conc 31.9 g/dL (32-36); Mean Corpuscular Hgb 28.8 pg (27.0-32.0); Mean Corpuscular Volume 90.3 fL (81-99); Mean Platelet Vol. 11.6 fl (6.2-12.0); Monocyte# 0.83 X10^3/uL; Monocyte% 8.9 % (0-10); NRBC Flagged by Analyzer 0 % (0-5); Neutrophil # 5.82 X10^3/uL (2.7-7.7); Neutrophil % 62.4 % (47-70); Platelet Count 202 K/mm3 (150-450); RBC Distribution Width CV 14.2 % (11.6-14.6); RBC Distribution Width SD 47.1 fl (35.1-43.9); Red Blood Count 2.78 M/mm3 (4.2-5.4); White Blood Count 9.3 K/mm3 (4.4-11.0)
[2022-05-10 05:52] LABS: Partial Thromboplast Time 192.8 Seconds (24.1-36.2)
[2022-05-10 06:12] LABS: ALB/GLOB Ratio 0.8 RATIO (0.9-2.4); AST(SGOT) 26 U/L (15-37); Alanine Aminotransfer ALT/SGPT 13 U/L (13-56); Alkaline Phosphatase 101 U/L (45-117); Anion Gap 12 (5-15); BUN 61 mg/dL (7-18); BUN/Creat Ratio 8.8 RATIO (10-20); Calcium,Total 8.9 mg/dL (8.5-10.1); Chloride 111 mmol/L (98-107); Cholesterol 81 mg/dL (200); Creatinine, Serum 6.95 mg/dL (0.55-1.02); EST Glomerular Filtration Rate 6 mL/min (>60); Est Glom Filt Rate - Afr Amer 8 mL/min (>60); Estimated Creatinine Clearance 7.01 ml/min; Globulin 2.6 g/dL (2.2-4.2); Glucose 90 mg/dL (74-106); High Density Lipoprotein 42 mg/dL; Magnesium 1.9 mg/dL (1.6-2.6); Potassium 3.4 mmol/L (3.5-5.1); Protein, Total 4.6 g/dL (6.4-8.2); Sodium Level 140 mmol/L (136-145); Triglycerides 52 mg/dL; Very Low Density Lipoprotein 10 mg/dL (5-40)
[2022-05-10] MEDS: Carvedilol 3.125 MG TABLET PO ×2 (08:59→18:46)
[2022-05-10] MEDS: Aspirin E.C. 81 MG Tablet PO (08:59)
[2022-05-10] MEDS: Magnesium Chloride 64 MG Delay Rel.Tablet 128 MG PO (08:59)
[2022-05-10] MEDS: Potassium Chloride Oral Tablet 20 MEQ PO ×2 (08:59→18:46)
[2022-05-10] MEDS: Calcitriol 0.25 MCG Capsule 1 MCG PO (09:00)
[2022-05-10] MEDS: Sodium Bicarbonate 650 MG Tablet 1300 MG PO ×2 (09:01→20:33)
--- NOTE | 2022-05-10 09:22 | NURSING ---
consent signed for cath patient taken down report called to elvin
--- NOTE | 2022-05-10 09:23 | NURSING ---
report called to raul in laboratory coordinator
--- NOTE | 2022-05-10 09:59 | PCM.CONS.C ---
Assessment & Plan Assessment/Plan (1) NSTEMI, initial episode of care: PLAN: The patient presents with findings concerning for an acute non-ST segment elevation TX. The concern is this may be related to underlying CAD. The same time contributing factors to her symptoms and her abnormal cardiac enzymes may include her anemia superimposed upon her end-stage renal disease. At the present time she will continue medical management as deemed appropriate. She has been recommended for further evaluation with diagnostic cardiac catheterization. The procedure and risk were discussed with her. She was agreeable to this approach. (2) Hypertension: QUALIFIERS: Hypertension type: essential hypertension Qualified Code(s): I10 - Essential (primary) hypertension PLAN: The patient has a history of hypertension. She will continue medical management as deemed appropriate. (3) ESRD (end stage renal disease) on dialysis: PLAN: The patient has been on home peritoneal dialysis. She will need in-hospital dialysis orchestrated by her nephrology team. (4) Anemia: PLAN: The patient does have a history of chronic anemia. This may be related to her chronic end-stage renal disease. She has been evaluated by endoscopy procedures in the past and appears to have been found to have in 2019 episodes of gastritis. She will need to continue to be monitored for any significant change in her hemoglobin levels that would warrant additional evaluation and care. Addt'l Comments The patient's case was discussed and reviewed with the patient. She was agreeable to the aforementioned evaluation and care plan. The patient denies symptoms considered classic for angina pectoris, CHF / pulmonary edema (with respect to orthopnea / PND), ongoing palpitations, or near syncope / syncope. HPI Consult Data Date of Consult: 05/10/22 HPI Narrative HPI Narrative: CHRISTIANO AWAD, is a 72 year old white female who presents for evaluation of a combination of symptoms which includes progressive weakness/fatigue, shortness of breath, and chest discomfort/heaviness superimposed upon a history of underlying end-stage renal disease on chronic home peritoneal dialysis with subsequent findings of abnormal cardiac enzymes/high-sensitivity troponin I levels compatible with a non-ST segment elevation TX. The patient states she has been feeling progressively weak and fatigued, becoming more short of breath and dyspneic with activity, and having chest discomfort/heaviness. She states as her symptoms worsen she elected to present to the hospital for further evaluation. During her evaluation she was found to have evidence of elevated high-sensitivity troponin I levels. Her ECG demonstrated sinus rhythm; PVCs; and nonspecific T wave abnormality with a subsequent ECG demonstrating similar type changes. Her chest x-ray suggested no acute radiologic changes. She was placed in the PCU for further evaluation and care. Her high-sensitivity troponin I levels continue to increase. She was treated medically which included IV heparin. She had denied any evidence of acute orthopnea or PND or worsening peripheral pitting edema. She has denied any near-syncope or syncope. She states she has been under a significant amount of emotional stress recently based upon life-changing events involving her family members. As part of her cardiovascular evaluation she underwent further evaluation with a transthoracic echocardiogram. This demonstrated left ventricular regional wall motion abnormalities with hypokinesis of the basal inferior and basal posterior segments with overall preserved LV systolic function/LVEF. She was recommended for further evaluation with diagnostic cardiac catheterization. [facility] Medical History Acute kidney injury superimposed on CKD Ambulates with cane Anemia Anxiety Arterial steal syndrome Arthritis Back pain Chronic renal failure, stage 5 Depression Dietary restriction Discoloration of skin Easy bruising ESRD (end stage renal disease) on dialysis Gastric reflux History of edema History of renal dialysis History of renal disease History of steroid therapy History of stress test Hypertension Peritoneal dialysis catheter in place Post-menopausal Renal calculi Rheumatoid arthritis Seasonal allergies Shortness of breath on exertion Superficial thrombophlebitis of arm Urinary tract infection Vascular dialysis catheter in place Wears glasses Home Medications hydroxyzine HCl 25 mg tablet 50 mg PO QHS PRN Itching 12/17/21 [History Last Taken 05/09/22] magnesium oxide 400 mg PO DAILY supplement 12/17/21 [History Last Taken 05/09/22] mecobalamin (vitamin B12) 1,000 mcg chewable tablet (B12 Active) 2,000 mcg PO DAILY vitamin 12/17/21 [History Last Taken 05/09/22] potassium chloride 20 mEq tablet,extended release(part/cryst) 20 meq PO BID supplement 12/17/21 [History Last Taken 05/09/22] calcitriol 0.5 mcg capsule 1 mcg PO MOWEFR Check with primary doctor 01/06/22 [History Last Taken 05/08/22] calcium acetate(phosphat bind) 667 mg capsule 1,334 mg PO TID Check with primary doctor 01/06/22 [History Last Taken 05/09/22] ergocalciferol (vitamin D2) 1,250 mcg (50,000 unit) capsule (Vitamin D2) 1,250 mcg PO QWEEK Check with primary doctor 01/06/22 [History Last Taken Unknown] sodium bicarbonate 650 mg tablet 1,300 mg PO BID Check with primary doctor 01/06/22 [History Last Taken 05/09/22] hydrocodone-acetaminophen 5-325mg 5mg-325mg 1 tab PO Q8H PRN PRN Pain 7 days #15 TABLETS 01/09/22 [Rx Last Taken Unknown] oxycodone-acetaminophen 5 mg-325 mg tablet (Percocet) 1 tab PO Q8H PRN pain 3 days #10 tabs 03/06/22 [Rx Last Taken Unknown] prednisone 20 mg tablet 40 mg PO DAILY PRN Radiologic Visualization 03/16/22 [History Last Taken Unknown] famotidine 20 mg tablet (Pepcid) 20 mg PO DAILY PRN gerd 05/10/22 [History Last Taken Unknown] paroxetine HCl 20 mg tablet 20 tab PO DAILY depression 05/10/22 [History Last Taken Unknown] Allergy/AdvReac Type Severity Reaction Status Date / Time adhesive tape Allergy Rash Verified 05/09/22 19:07 amoxicillin [From Augmentin] Allergy Swelling Verified 05/09/22 19:07 cephalexin [From Keflex] Allergy Swelling Verified 05/09/22 19:07 clavulanic acid Allergy Swelling Verified 05/09/22 19:07 [From Augmentin] latex Allergy Rash Verified 05/09/22 19:07 Penicillins [PCN] Allergy Swelling Verified 05/09/22 19:07 sulfamethoxazole Allergy rash,swellling, Verified 05/09/22 19:07 [From Bactrim] itching trimethoprim [From Bactrim] Allergy rash,swellling, Verified 05/09/22 19:07 itching walnut Allergy Itching Verified 05/09/22 19:07 [place] Allergy Itching Uncoded 05/09/22 19:07 Family History Mother Heart disease Diabetes Hypertension Father Dementia Surgical History H/O hernia repair history Left AV Fistula Creation (~05/03/20) History of colonoscopy History of esophagogastroduodenoscopy (EGD) Hx of cystoscopy Hx of cystoscopy S/P bypass gastroenterostomy S/P hemorrhoidectomy Social History (Updated 05/09/22 @ 23:[address] Libby Wick MD) household members: other details: Lives with her daughter. Smoking Status: Never smoker alcohol intake: never substance use type: does not use ROS Constitutional Constitutional: Reports as per HPI Eyes Eyes: Reports as per HPI ENT HEENT: Reports as per HPI Cardiovascular Cardiovascular: Reports chest pain, dyspnea and fatigue Respiratory/Chest Respiratory/Chest: Reports dyspnea Gastrointestinal Gastrointestinal: Reports as per HPI Genitourinary Genitourinary: Reports as per HPI Musculoskeletal Musculoskeletal: Reports as per HPI Integumentary Integumentary: Reports as per HPI Neurologic Neurologic: Reports as per HPI Psychiatric Psychiatric: Reports as per HPI Physical Exam Const alert, oriented x3 and no apparent distress Orientation / Consciousness: awake HEENT normocephalic, head/scalp atraumatic and hearing grossly normal bilaterally Eyes PERRL, EOMs intact bilaterally, conjunctivae normal and no scleral icterus Neck full ROM, supple and no JVD Resp normal respiratory effort and clear to auscultation bilaterally Cardio regular rate, regular rhythm, S1 normal heart sound and S2 normal heart sound GI normal to inspection, nondistended, normoactive bowel sounds Extremity no pedal edema Skin no rashes or lesions noted Psych mental status grossly normal Risk Stratification Risk Stratification Applicable: Yes Age >/= 65: Yes >/= 3 CAD Risk Factors (HTN, HLD, DM, family hx of CAD, or current smoker): No Aspirin Use in the Past 7 Days: No Severe Angina (>/= episodes in 24 hours): No EKG ST Changes >/= 0.5mm: No Positive Cardiac Marker: Yes MARI Risk Stratification Score: 2 MARI % Risk: 8% Risk Objective Data Vital Signs: Vital Signs Temp Pulse Resp BP Pulse Ox O2 Del Method 98.2 F 69 14 145/70 H 96 Room Air 05/10/22 08:45 05/10/22 08:45 05/10/22 08:45 05/10/22 08:45 05/10/22 08:45 05/10/22 08:45 Oxygen Delivery Method Room Air Weight: 136 lb 10.986 oz Body Mass Index (BMI) 21.4 Intake & Output: Intake and Output for Last 24 Hours 05/08/22 05/09/22 05/10/22 23:59 23:59 23:59 Intake Total 335 / 335 173 / 173 Balance 335 / 335 173 / 173 Lab / Micro Data Result Diagrams: 05/10/22 04:58 05/10/22 04:58 Labs: Laboratory Results - last 24 hr 05/09/22 19:50: WBC 9.9, RBC 3.35 L, Hgb 9.6 L, Hct 29.9 L, MCV 89.3, MCH 28.7, MCHC 32.1, RDW Std Deviation 45.3 H, RDW Coeff of [place] 14.1, Plt Count 249, MPV 11.3, Immature Gran % (Auto) 0.900, Neut % (Auto) 72.9 H, Lymph % (Auto) 15.8 L, [place] % (Auto) 7.2, Eos % (Auto) 2.6, Baso % (Auto) 0.6, Absolute Neuts (auto) 7.2, Absolute Lymphs (auto) 1.57, Nucleated RBC % 0 05/09/22 19:50: Sodium 139, Potassium 3.2 L, Chloride 107, Carbon Dioxide 21.0, Anion Gap 11, BUN 60 H, Creatinine 7.36 H, Estim Creat Clear Calc 6.34, Est GFR (MDRD) Af Amer 7 L, Est GFR (MDRD) Non-Af 6 L, BUN/Creatinine Ratio 8.2 L, Glucose 122 H, Calcium 8.9, Magnesium 1.4 L, Total Bilirubin 0.30, AST 26, ALT 15, Alkaline Phosphatase 124 H, Troponin I High Sens 3574 H*, Total Protein 5.7 L, Albumin 2.5 L, Globulin 3.2, Albumin/Globulin Ratio 0.8 L, Lipase 162, TSH 2.77 05/09/22 20:12: Urine Color Yellow, Urine Clarity Sl. Cloudy, Urine pH 6.0, Ur Specific [place] 1.015, Urine Protein 100 H, Urine Glucose (UA) 100 H, Urine Ketones Negative, Urine Occult Blood 50 H, Urine Nitrite Negative, Urine Bilirubin Negative, Urine Urobilinogen Normal, Ur Leukocyte Esterase 500 H, Urine RBC 5-10 SEEN, Urine WBC >100 SEEN, Ur Squamous Epith Cells 5-10 SEEN, Amorphous Sediment 1+ URATE, Urine Bacteria RARE, Urine Mucus 0 SEEN 05/09/22 21:19: PT 12.6, INR 1.0, APTT 28.1 05/09/22 21:43: Troponin I High Sens Cancelled 05/09/22 22:45: Troponin I High Sens 3856 H* 05/10/22 02:40: Troponin I High Sens 4304 H* 05/10/22 04:58: WBC 9.3, RBC 2.78 L, Hgb 8.0 L, Hct 25.1 L, MCV 90.3, MCH 28.8, MCHC 31.9 L, RDW Std Deviation 47.1 H, RDW Coeff of [place] 14.2, Plt Count 202, MPV 11.6, Immature Gran % (Auto) 1.100 H, Neut % (Auto) 62.4, Lymph % (Auto) 21.9, [place] % (Auto) 8.9, Eos % (Auto) 5.1 H, Baso % (Auto) 0.6, Absolute Neuts (auto) 5.8, Absolute Lymphs (auto) 2.04, Nucleated RBC % 0 05/10/22 04:58: Sodium 140, Potassium 3.4 L, Chloride 111 H, Carbon Dioxide 17.0 L, Anion Gap 12, BUN 61 H, Creatinine 6.95 H, Estim Creat Clear Calc 7.01, Est GFR (MDRD) Af Amer 8 L, Est GFR (MDRD) Non-Af 6 L, BUN/Creatinine Ratio 8.8 L, Glucose 90, Calcium 8.9, Magnesium 1.9, Total Bilirubin 0.30, AST 26, ALT 13, Alkaline Phosphatase 101, Total Protein 4.6 L, Albumin 2.0 L, Globulin 2.6, Albumin/Globulin Ratio 0.8 L, Triglycerides 52, Cholesterol 81, LDL Cholesterol 29, VLDL Cholesterol 10, HDL Cholesterol 42 05/10/22 04:58: APTT 192.8 H* Cardiology Labs/Tests 05/09/22 19:50: WBC 9.9, RBC 3.35 L, Hgb 9.6 L, Hct 29.9 L, MCV 89.3, MCH 28.7, MCHC 32.1, Plt Count 249, MPV 11.3, Immature Gran % (Auto) 0.900, Neut % (Auto) 72.9 H, Lymph % (Auto) 15.8 L, [place] % (Auto) 7.2, Eos % (Auto) 2.6, Baso % (Auto) 0.6, Absolute Neuts (auto) 7.2, Nucleated RBC % 0 05/09/22 19:50: Sodium 139, Potassium 3.2 L, Chloride 107, Carbon Dioxide 21.0, Anion Gap 11, BUN 60 H, Creatinine 7.36 H, Est GFR (MDRD) Af Amer 7 L, Est GFR (MDRD) Non-Af 6 L, BUN/Creatinine Ratio 8.2 L, Glucose 122 H, Calcium 8.9, Magnesium 1.4 L, Total Bilirubin 0.30 05/09/22 20:12: Urine Color Yellow, Urine Clarity Sl. Cloudy, Urine pH 6.0, Ur Specific [place] 1.015, Urine Protein 100 H, Urine Glucose (UA) 100 H, Urine Ketones Negative, Urine Occult Blood 50 H, Urine Nitrite Negative, Urine Bilirubin Negative, Urine Urobilinogen Normal, Ur Leukocyte Esterase 500 H, Urine RBC 5-10 SEEN, Urine WBC >100 SEEN 05/09/22 21:19: PT 12.6, INR 1.0, APTT 28.1 05/10/22 04:58: WBC 9.3, RBC 2.78 L, Hgb 8.0 L, Hct 25.1 L, MCV 90.3, MCH 28.8, MCHC 31.9 L, Plt Count 202, MPV 11.6, Immature Gran % (Auto) 1.100 H, Neut % (Auto) 62.4, Lymph % (Auto) 21.9, [place] % (Auto) 8.9, Eos % (Auto) 5.1 H, Baso % (Auto) 0.6, Absolute Neuts (auto) 5.8, Nucleated RBC % 0 05/10/22 04:58: Sodium 140, Potassium 3.4 L, Chloride 111 H, Carbon Dioxide 17.0 L, Anion Gap 12, BUN 61 H, Creatinine 6.95 H, Est GFR (MDRD) Af Amer 8 L, Est GFR (MDRD) Non-Af 6 L, BUN/Creatinine Ratio 8.8 L, Glucose 90, Calcium 8.9, Magnesium 1.9, Total Bilirubin 0.30, Triglycerides 52, Cholesterol 81, LDL Cholesterol 29, VLDL Cholesterol 10, HDL Cholesterol 42 05/10/22 04:58: APTT 192.8 H* Rhythm: Sinus rhythm EKG: As noted above ECHO: Interpretation Summary The study was technically difficult. ? Segmental dysfunction with preserved ejection fraction (see wall motion). The estimated ejection fraction is 55 %. Sigmoid septum. There is moderate to severe mitral annular calcification. Extension of the mitral annular calcification onto the base of the posterior mitral valve leaflet. Trivial mitral valve insufficiency. Trivial tricuspid valve insufficiency. Mild diffuse aortic valve thickening. Trivial aortic valve insufficiency. Unable to estimate RV systolic pressure/pulmonary artery pressure due to technically difficult study. Diastolic function is indeterminate. Radiography Diagnostic Testing: Radiology Impression Chest X-Ray 05/09/22 20:25 IMPRESSION: No acute cardiopulmonary disease or major interval change. Electronically Signed: Francisco Long DO at 20:46 EDT Reading Location ID and State: [address] [place] [address] Tel [phone], Service support ,
--- NOTE | 2022-05-10 12:15 | EKG12_ITS ---
Test Reason : Blood Pressure : / mmHG Vent. Rate : 064 BPM Atrial Rate : 064 BPM P-R Int : 148 ms QRS Dur : 066 ms QT Int : 414 ms P-R-T Axes : 067 035 075 degrees QTc Int : 427 ms Poor data quality, interpretation may be adversely affected Normal sinus rhythm Nonspecific T wave abnormality Abnormal ECG When compared with ECG of 09-MAY-2022 23:33, MANUAL COMPARISON REQUIRED, DATA IS UNCONFIRMED Confirmed by RICH SHERIFF, MANISH ([id number]), art editor ANTONIA CARRION ([id number]) on 05/15/2022 11:15:49 AM Referred By: Thien Confirmed By:TAMIKA VILLANUEVA MD
--- NOTE | 2022-05-10 13:06 | CL.D_ITS ---
Patient Name: CHRISTIANO AWAD Study Date: 05/10/2022 Performing: Emerson Real MD Ht: 66.93 inches 170 cm : 1950 Wt: 136.69 lbs 62 kg Age: 72 Gender: female BSA: 1.72 PROCEDURE(S) PERFORMED DC02-([id number])LHC/COR IC12-([id number])JOSEFINA W/WO PTCA, SINGLE CORONARY ARTERY CLINICAL PROFILE AND INDICATIONS Indications: ACS <= 24 hrs Heart Failure: None Stress/Imaging Stress/Image Study Performed: No CAD Presentations: Non-STEMI. CONCLUSIONS Normal Left Ventricular End Diastolic Pressure [place] Multivessel CAD RECOMMENDATIONS Risk factor modification Medical therapy Referred for immediate PCI Case discussed / reviewed with Dr. Vital of Interventional Cardiology DESCRIPTION OF PROCEDURE The patient arrived to the procedure lab. The risks and benefits of the procedure as well as a full d escription of our services here and current unavailability of surgical backup were fully explained to the patient and/or their significant other prior to the catheterization. The Timeout was completed, verifying the correct patient and procedure. The patient's procedural site was prepped and draped in the usual fashion. Local anesthetic was given subcutaneously to right radial region with Lidocaine 2% . Using a modified Seldinger technique, arterial access was obtained via the right radial artery, a 6 Fr sheath was inserted., arterial access was obtained via the right femoral artery, a 4Fr sheath was inserted Left Coronary Artery selective angiography was performed in multiple views using a 4 Fr. JL 5 catheter. Right Coronary Artery selective angiography was then performed in multiple views using a 4 Fr. JR4 catheter. LV to AO pullback pressures were then recorded.Contrast was injected through the sheath and the Right Iliac and Femoral artery were assessed for possible closure device. CORONARY ANGIOGRAPHY LEFT HEART ASSESSMENT Left Ventricular Ejection Fraction: Not assessed Normal Left Ventricular End Diastolic Pressure LVEDP: 11 mmHg LEFT MAIN: Mild calcification LEFT ANTERIOR DESCENDING ARTERY: PROX LAD: Mild calcification, Mild luminal irregularities, 25 - 50 % Stenosis MID LAD: ectatic area, Mild luminal irregularities CIRCUMFLEX ARTERY: MID CIRC: Mild calcification, Mild luminal irregularities RIGHT CORONARY ARTERY: PROX RCA: Moderate calcification, Mild luminal irregularities MID RCA: appearing c/w thrombus: 95 % Stenosis COMPLICATIONS No Complications PROCEDURE MEDICATIONS Versed 1 mg IV Fentanyl 50 mcg IV Versed 1 mg IV Fentanyl 50 mcg IV Oxygen: 2 L/min via nasal cannula Brilinta 180 mg PO @ 05/10/2022 10:43:22 Heparin 5000 unit(s) IV 05/10/2022 10:43:28 Heparin 2000 unit(s) IV 05/10/2022 11:09:33 Zofran 4 mg IV 05/10/2022 11:18:30 SUMMARY OF HEMODYNAMIC DATA Time AIR REST ECG 09:36:44 Art 127/54 (80) 10:14:10 AO 115/74 (94) SA 10:17:39 LV 142/3, 11 10:30:58 LV 90/4, 11 10:31:30 LVp 97/4, 9 10:31:41 AOp 95/39 (62) 10:31:48 Signed By Emerson Real MD On 05/10/2022 13:06:03 Emerson Real MD
--- NOTE | 2022-05-10 13:27 | CL.I_ITS ---
Patient Name: CHRISTIANO AWAD Study Date: 05/10/2022 Performing: Ashley Vital MD Ht: 67 inches 170 cm : 1950 Wt: 136.9 lbs 62 kg Age: 72 Gender: female BSA: 1.72 PROCEDURE(S) PERFORMED IC12-(47760/C9600)JOSEFINA W/WO PTCA, SINGLE CORONARY ARTERY CLINICAL PROFILE AND CO-MORBIDITIES Indications: ACS <= 24 hrs Heart Failure: None Stress/Imaging Stress/Image Study Performed: No CAD Presentations: Non-STEMI. CONCLUSIONS Successful JOSEFINA to mRCA RECOMMENDATIONS DESCRIPTION OF PROCEDURE The patient arrived to the procedure lab. The risks and benefits of the procedure as well as a full d escription of our services here and current unavailability of surgical backup were fully explained to the patient and/or their significant other prior to the catheterization. The Timeout was completed, verifying the correct patient and procedure. The patient's procedural site was prepped and draped in the usual fashion. Local anesthetic was given subcutaneously to right radial region with Lidocaine 2% Using a modified Seldinger technique,arterial access was obtained via the right radial artery, a 6Fr sheath was inserted., arterial access was obtained via the right femoral artery, a 4Fr sheath was in serted Left Coronary Artery selective angiography was performed in multiple views using a 4 Fr. JL5 c atheter. Right Coronary Artery selective angiography was then performed in multiple views using a 4 F r. JR4 catheter. LV to AO pullback pressures were then recorded.The images were reviewed and options discussed. A decision was then made to proceed with an Intervention, IVUS or other adjunc t procedure. Arterial sheath was exchanged for a 6 Fr Sheath. jr 4 Guide catheter was inserted and engaged int o the RCA. bmw Guide wire was advanced to the RCA. emerge 2.5 x 12 Balloon catheter was advanced acro ss lesion in the right coronary, mid. PTCA balloon inflated at 6 atms for 25 secs. PTCA balloon infla bandar at 6 atms for 10 secs. PTCA balloon inflated at 6 atms for 8 secs. Angiogram performed post ballo on dilatation. PTCA balloon inflated at 8 atms for 10 secs. PTCA balloon inflated at 6 atms for 8 sec s. PTCA balloon inflated at 8 atms for 16 secs. PTCA balloon inflated at 8 atms for 14 secs. PTCA bal loon inflated at 10 atms for 15 secs. Angiogram performed post balloon dilatation. nc emerge 2.5 x 30 Balloon catheter was advanced across lesion in the right coronary, mid. PTCA balloon inflated at 6 a tms for 30 secs. PTCA balloon inflated at 16 atms for 24 secs. osiro 2.5 x 40 Drug Eluting stent was advanced across the lesion in the right coronary, mid. Angiogram performed post stent deployment. nc euphora 2.5 x 12 Balloon catheter was inserted post stent. Angiogram performed post ba lloon dilatation. Contrast was injected through the sheath and the Right Iliac and Femoral artery wer e assessed for possible closure device. INTERVENTION INFORMATION LESION SITE: RCA (Mid) Lesion Complexity: High/C, chronic total occlusion: No, lesion at bifurcation: No, thrombus present: No, lesion length: 38 mm, culprit lesion: Yes, Previously treated lesion: No Pre Stenosis: 95 % Pre intervention MARI flow: 3 PROCEDURE: Drug Eluting Stent with pre and post dilatation Post Stenosis: 0 % Post intervention MARI flow: 3 Lesion Devices: Rivas Sci EMERGE MR 2.50x12 BALLOON Rivas Sci NC EMERGE MR 2.50x30 BALLOON [employer] 6 [employer] [facility] JOSEFINA 2.5x40 Medtronic NC EUPHORA RX 2.5x12 BALLOON COMPLICATIONS No Complications PROCEDURE MEDICATIONS Versed 1 mg IV Fentanyl 50 mcg IV Versed 1 mg IV Fentanyl 50 mcg IV Oxygen: 2 L/min via nasal cannula Brilinta 180 mg PO @ 05/10/2022 10:43:22 Heparin 5000 unit(s) IV 05/10/2022 10:43:28 Heparin 2000 unit(s) IV 05/10/2022 11:09:33 Zofran 4 mg IV 05/10/2022 11:18:30 SUMMARY OF HEMODYNAMIC DATA Time AIR REST ECG 09:36:44 Art 127/54 (80) 10:14:10 AO 115/74 (94) SA 10:17:39 LV 142/3, 11 10:30:58 LV 90/4, 11 10:31:30 LVp 97/4, 9 10:31:41 AOp 95/39 (62) 10:31:48 Signed By Ashley Vital MD On 05/10/2022 13:26:34 Ashley Vital MD
--- NOTE | 2022-05-10 13:40 | CASEMGMT ---
RN SELINA Face to Face with patient for initial transition planning/care coordination assessment. RN CM introduced self and role at [facility]. Patient lying in bed, alert and oriented, daughter at bedside. Patient willing to participate in assessment and is able to answer all questions appropriately. Care providers, pharmacy, and demographics verified. Patient wishes to discharge home, denies need for home health at this time. Patient states she has no further needs or concerns at this time. CM to follow for discharge planning needs that may arise. PCP: [facility] Specialists: Jassi drencher; Sundar urologist Preferred Pharmacy: Elysia Ortega; [facility] retail at discharge Insurance: [facility], [employer] Prescription Benefit: yes Living Will/HPOA: yes, daughter María Elena Dumont LNOK: daughter Living Arrangements: Patient lives with daughter in a 2 story home with bed and bath on first floor. Patient has 3-5 steps to enter the home with railing. Patient was independent at home prior to current illness. Transportation: self, daughter DME/HHC: Patient states she has raised toilet, cane, walker, hospital bed, and wheelchair at home. Patient has had [facility] in the past. Patient completed peritoneal dialysis at home. Disposition Plan: Patient to discharge home with family support and follow-up plans in place. Katia MALIN, RN, CM
[2022-05-10] MEDS: Acetaminophen 325 MG Tablet 650 MG PO (13:49)
[2022-05-10] MEDS: Calcium Acetate 667 MG Capsule 1334 MG PO ×2 (13:51→18:45)
--- NOTE | 2022-05-10 14:00 | CRPHASE1_ITS ---
Patient Communication PHII Cardiac Rehab Discussed with Patient:: Yes Guide to Cardiac Rehab Given to Patient:: Yes Cardiac Rehab Facility Choice List Given to Patient:: Yes Choice Program [facility] CR PHII:: Communication Given to CR Choice Program Other:: Communication Given to CR Director Of Capital Giving:: magalie Refer Phase II Cardiac Rehab:: Yes Sessions:: 36 sessions - 3 days/wk, 12 weeks Cardiac Rehabilitation Info Cardiac Rehabilitation Program Information: Cardiac Rehabilitation is important for patients like you who are recovering from a heart problem. Cardiac rehabilitation programs are recognized as integral to the continued care of the patient with coronary heart disease. The cardiac rehabilitation program is designed to optimize a patient's physical, psychological, and social functioning. Health childcare attendant work in cardiac rehabilitation programs and assist you with getting the treatments you need to get stronger and healthier - like exercise, healthy eating habits, and medications. Cardiac rehabilitation has been show to help people with heart problems live longer and have better life enjoyment than people who do not go to cardiac rehabilitation. Please contact the Cardiac Rehabilitation Program at [facility] at in two weeks if you have not heard from them.
--- NOTE | 2022-05-10 14:01 | CRPH1.INSTRU ---
General Education CAD and cardiac anatomy and function:: Patient communicates acknowledgment Explanation of diagnoses and procedures:: Patient communicates acknowledgment Sign/Symptoms of CA:: Patient communicates acknowledgment Antiplatelet therapy: Patient communicates acknowledgment Smoking Patient Nicotine/Smoking Risk Factors Are:: Never smoked Dyslipidemia Patient Dyslipidemia Risk Factors Are:: Total Cholesterol, Triglycerides, HDL, LDL Recommendations Include:: Lipid profile provided, Reviewed NCEP/ATP guidelines, Therapeutic Lifestyle Change dietary guidelines Dyslipidemia Response Code:: Patient communicates acknowledgment Overweight/Obesity Patient Overweight/Obesity Risk Factors Are:: BMI Normal [18-25 & < 65 years old] Recommendations Include:: Exercise 5-7 times/week Overweight/Obesity:: Patient communicates acknowledgment Hypertension Recommendations Include:: Maintain BP <130/85, DASH dietary guidelines, Decrease/maintain normal body weight, Moderation of ETOH Hypertension:: Patient communicates acknowledgment Diabetes Patient Diabetes Risk Factors Are:: No documented hx of diabetes Metabolic Syndrome Recommendations Include:: Does not meet criteria Sedentary Patient Sedentary Risk Factors Are:: Lack of regular exercise Recommendations Include:: Aerobic exercise 5-7 times/week for 20-30 minutes continuously, Benefits of regular exercise, Discussed home walking program, Monitored Outpatient Cardiac Rehab Sedentary Response Code:: Patient communicates acknowledgment Stress Recommendations Include:: Identification of stressors, and assessment of coping skills, Stress management techniques Stress Response Code:: Patient communicates acknowledgment
--- NOTE | 2022-05-10 14:17 | NURSING ---
went to check on patient daughter states patient is bleeding from rt wrist she just took off the band pressure held tr band replaced with 15cc air
--- NOTE | 2022-05-10 14:51 | CON.PCM.RE_ITS ---
Assessment & Plan Assessment/Plan (1) ESRD (end stage renal disease) on dialysis: (2) NSTEMI, initial episode of care: PLAN: Plan Assessment 72 y/o female, hx of ESRD on CCPD, admitted to hospital due to chest pain. Nephrology consulted for management of her ESRD 1. ESRD on CCPD -volume and electrolytes ok -plan on CCPD tonight 2. NSTEMI -going for heart cath -per cardiology team Plan -CCPD tonight -1.5% dextrose -fill volume 1.5L will follow, please call [phone] with any concerns. HPI Consult Data Date of Consult: 05/10/22 HPI Narrative Reason for Consultation: esrd HPI Narrative: CHRISTIANO AWAD, is a 72 F who presents with chest heaviness, currently being treated for NSTEMI with plan on heart catherization today Nephrology consulted for management of her ESRD. Patient is on PD, her primary delinquency prevention social worker is my partner Dr. Keene. On today's encounter, feels ok. currently no sob, still makes urine PFSH Medical History Acute kidney injury superimposed on CKD Ambulates with cane Anemia Anxiety Arterial steal syndrome Arthritis Back pain Chronic renal failure, stage 5 Depression Dietary restriction Discoloration of skin Easy bruising ESRD (end stage renal disease) on dialysis Gastric reflux History of edema History of renal dialysis History of renal disease History of steroid therapy History of stress test Hypertension Peritoneal dialysis catheter in place Post-menopausal Renal calculi Rheumatoid arthritis Seasonal allergies Shortness of breath on exertion Superficial thrombophlebitis of arm Urinary tract infection Vascular dialysis catheter in place Wears glasses Home Medications hydroxyzine HCl 25 mg tablet 50 mg PO QHS PRN Itching 12/17/21 [History Last Taken 05/09/22] magnesium oxide 400 mg PO DAILY supplement 12/17/21 [History Last Taken 05/09/22] mecobalamin (vitamin B12) 1,000 mcg chewable tablet (B12 Active) 2,000 mcg PO DAILY vitamin 12/17/21 [History Last Taken 05/09/22] potassium chloride 20 mEq tablet,extended release(part/cryst) 20 meq PO BID supplement 12/17/21 [History Last Taken 05/09/22] calcitriol 0.5 mcg capsule 1 mcg PO MOWEFR Check with primary doctor 01/06/22 [History Last Taken 05/08/22] calcium acetate(phosphat bind) 667 mg capsule 1,334 mg PO TID Check with primary doctor 01/06/22 [History Last Taken 05/09/22] ergocalciferol (vitamin D2) 1,250 mcg (50,000 unit) capsule (Vitamin D2) 1,250 mcg PO QWEEK Check with primary doctor 01/06/22 [History Last Taken Unknown] sodium bicarbonate 650 mg tablet 1,300 mg PO BID Check with primary doctor 01/06/22 [History Last Taken 05/09/22] hydrocodone-acetaminophen 5-325mg 5mg-325mg 1 tab PO Q8H PRN PRN Pain 7 days #15 TABLETS 01/09/22 [Rx Last Taken Unknown] oxycodone-acetaminophen 5 mg-325 mg tablet (Percocet) 1 tab PO Q8H PRN pain 3 days #10 tabs 03/06/22 [Rx Last Taken Unknown] prednisone 20 mg tablet 40 mg PO DAILY PRN Radiologic Visualization 03/16/22 [History Last Taken Unknown] famotidine 20 mg tablet (Pepcid) 20 mg PO DAILY PRN gerd 05/10/22 [History Last Taken Unknown] paroxetine HCl 20 mg tablet 20 tab PO DAILY depression 05/10/22 [History Last Taken Unknown] Allergy/AdvReac Type Severity Reaction Status Date / Time adhesive tape Allergy Rash Verified 05/09/22 19:07 amoxicillin [From Augmentin] Allergy Swelling Verified 05/09/22 19:07 cephalexin [From Keflex] Allergy Swelling Verified 05/09/22 19:07 clavulanic acid Allergy Swelling Verified 05/09/22 19:07 [From Augmentin] latex Allergy Rash Verified 05/09/22 19:07 Penicillins [PCN] Allergy Swelling Verified 05/09/22 19:07 sulfamethoxazole Allergy rash,swellling, Verified 05/09/22 19:07 [From Bactrim] itching trimethoprim [From Bactrim] Allergy rash,swellling, Verified 05/09/22 19:07 itching walnut Allergy Itching Verified 05/09/22 19:07 GREEN BEANS Allergy Itching Uncoded 05/09/22 19:07 Family History Mother Heart disease Diabetes Hypertension Father Dementia Surgical History H/O hernia repair history Left AV Fistula Creation (~05/03/20) History of colonoscopy History of esophagogastroduodenoscopy (EGD) Hx of cystoscopy Hx of cystoscopy S/P bypass gastroenterostomy S/P hemorrhoidectomy Social History (Updated 05/09/22 @ 23:[address] Libby Wick MD) household members: other details: Lives with her daughter. Smoking Status: Never smoker alcohol intake: never substance use type: does not use ROS ROS Narrative 12 ROS negative other than states above Physical Exam Narrative alert, responsive, no acute distress nc/at/eomi oral mucosa moist neck supple s1s2 regular b/s equal abdomen non tender no edema +PD cathter Lab / Micro Data Result Diagrams: 05/10/22 04:58 05/10/22 04:58 Labs: Laboratory Results - last 24 hr 05/09/22 19:50: WBC 9.9, RBC 3.35 L, Hgb 9.6 L, Hct 29.9 L, MCV 89.3, MCH 28.7, MCHC 32.1, RDW Std Deviation 45.3 H, RDW Coeff of [place] 14.1, Plt Count 249, MPV 11.3, Immature Gran % (Auto) 0.900, Neut % (Auto) 72.9 H, Lymph % (Auto) 15.8 L, [place] % (Auto) 7.2, Eos % (Auto) 2.6, Baso % (Auto) 0.6, Absolute Neuts (auto) 7.2, Absolute Lymphs (auto) 1.57, Nucleated RBC % 0 05/09/22 19:50: Sodium 139, Potassium 3.2 L, Chloride 107, Carbon Dioxide 21.0, Anion Gap 11, BUN 60 H, Creatinine 7.36 H, Estim Creat Clear Calc 6.34, Est GFR (MDRD) Af Amer 7 L, Est GFR (MDRD) Non-Af 6 L, BUN/Creatinine Ratio 8.2 L, Glucose 122 H, Calcium 8.9, Magnesium 1.4 L, Total Bilirubin 0.30, AST 26, ALT 1 5, Alkaline Phosphatase 124 H, Troponin I High Sens 3574 H*, Total Protein 5.7 L , Albumin 2.5 L, Globulin 3.2, Albumin/Globulin Ratio 0.8 L, Lipase 162, TSH 2.77 05/09/22 20:12: Urine Color Yellow, Urine Clarity Sl. Cloudy, Urine pH 6.0, Ur Specific [place] 1.015, Urine Protein 100 H, Urine Glucose (UA) 100 H, Urine Ketones Negative, Urine Occult Blood 50 H, Urine Nitrite Negative, Urine Bi lirubin Negative, Urine Urobilinogen Normal, Ur Leukocyte Esterase 500 H, Urine RBC 5-10 SEEN, Urine WBC >100 SEEN, Ur Squamous Epith Cells 5-10 SEEN, Amorphous Sediment 1+ URATE, Urine Bacteria RARE, Urine Mucus 0 SEEN 05/09/22 21:19: PT 12.6, INR 1.0, APTT 28.1 05/09/22 21:43: Troponin I High Sens Cancelled 05/09/22 22:45: Troponin I High Sens 3856 H* 05/10/22 02:40: Troponin I High Sens 4304 H* 05/10/22 04:58: WBC 9.3, RBC 2.78 L, Hgb 8.0 L, Hct 25.1 L, MCV 90.3, MCH 28.8, MCHC 31.9 L, RDW Std Deviation 47.1 H, RDW Coeff of [place] 14.2, Plt Count 202, MPV 11.6, Immature Gran % (Auto) 1.100 H, Neut % (Auto) 62.4, Lymph % (Auto) 21.9, Liberty % (Auto) 8.9, Eos % (Auto) 5.1 H, Baso % (Auto) 0.6, Absolute Neuts (auto) 5.8, Absolute Lymphs (auto) 2.04, Nucleated RBC % 0 05/10/22 04:58: Sodium 140, Potassium 3.4 L, Chloride 111 H, Carbon Dioxide 17.0 L, Anion Gap 12, BUN 61 H, Creatinine 6.95 H, Estim Creat Clear Calc 7.01, Est GFR (MDRD) Af Amer 8 L, Est GFR (MDRD) Non-Af 6 L, BUN/Creatinine Ratio 8.8 L, Glucose 90, Calcium 8.9, Magnesium 1.9, Total Bilirubin 0.30, AST 26, ALT 13, Alkaline Phosphatase 101, Total Protein 4.6 L, Albumin 2.0 L, Globulin 2.6, Albumin/Globulin Ratio 0.8 L, Triglycerides 52, Cholesterol 81, LDL Cholesterol 29, VLDL Cholesterol 10, HDL Cholesterol 42 05/10/22 04:58: APTT 192.8 H* Micro: Microbiology 05/09/22 20:12 Urine, Clean Catch Urine Culture - Preliminary Gram Positive Cocci Radiology Impression Chest X-Ray 05/09/22 20:25 IMPRESSION: No acute cardiopulmonary disease or major interval change. Electronically Signed: Francisco Long DO at 20:46 EDT Reading Location ID and State: [address] [place] [address] Tel [phone], Service support , Echocardiogram 05/09/22 22:08 Interpretation Summary The study was technically difficult. Segmental dysfunction with preserved ejection fraction (see wall motion). The estimated ejection fraction is 55 %. Sigmoid septum. There is moderate to severe mitral annular calcification. Extension of the mitral annular calcification onto the base of the posterior mitral valve leaflet. Trivial mitral valve insufficiency. Trivial tricuspid valve insufficiency. Mild diffuse aortic valve thickening. Trivial aortic valve insufficiency. Unable to estimate RV systolic pressure/pulmonary artery pressure due to technically difficult study. Diastolic function is indeterminate. Ordering Physician: Libby Wick Referring Physician: Jewell Bowens Performed By: Kathya Lino, REBECCACS, RVT
--- NOTE | 2022-05-10 15:53 | DIALYSIS ---
CCPD was initiated at 1445. Using 2 bags of 1.5% delflex solution. Effluent drainage is clear and yellow. No fibrin noted. Dressing was changed. No issues noted. Report was given to BRENDEN Gibbs.
[2022-05-10] MEDS: 0.9% Normal Saline 1,000 ML 75 ML IV (16:07)
--- NOTE | 2022-05-10 19:00 | PCM.PN.HOSP ---
Subjective Subjective Patient was seen and examined today, she underwent a cardiac catheterization and subsequent JOSEFINA placement in the mid RCA. Patient's subsequently underwent her chronic dialysis today. Objective Data Objective Data Vital Signs: Vital Signs Temp Pulse Resp BP Pulse Ox O2 Del Method 98.1 F 60 15 132/69 H 96 Room Air 05/10/22 18:00 05/10/22 18:00 05/10/22 18:00 05/10/22 18:00 05/10/22 18:00 05/10/22 18:00 Oxygen Delivery Method Room Air Weight: 62 kg Body Mass Index (BMI) 21.4 Intake & Output: Intake and Output for Last 24 Hours 05/08/22 05/09/22 05/10/22 23:59 23:59 23:59 Intake Total 335 / 335 1158 / 1158 Balance 335 / 335 1158 / 1158 Lab / Micro Data Result Diagrams: 05/10/22 04:58 05/10/22 04:58 Labs: Laboratory Results - last 24 hr 05/09/22 19:50: WBC 9.9, RBC 3.35 L, Hgb 9.6 L, Hct 29.9 L, MCV 89.3, MCH 28.7, MCHC 32.1, RDW Std Deviation 45.3 H, RDW Coeff of [place] 14.1, Plt Count 249, MPV 11.3, Immature Gran % (Auto) 0.900, Neut % (Auto) 72.9 H, Lymph % (Auto) 15.8 L, Turner % (Auto) 7.2, Eos % (Auto) 2.6, Baso % (Auto) 0.6, Absolute Neuts (auto) 7.2, Absolute Lymphs (auto) 1.57, Nucleated RBC % 0 05/09/22 19:50: Sodium 139, Potassium 3.2 L, Chloride 107, Carbon Dioxide 21.0, Anion Gap 11, BUN 60 H, Creatinine 7.36 H, Estim Creat Clear Calc 6.34, Est GFR (MDRD) Af Amer 7 L, Est GFR (MDRD) Non-Af 6 L, BUN/Creatinine Ratio 8.2 L, Glucose 122 H, Calcium 8.9, Magnesium 1.4 L, Total Bilirubin 0.30, AST 26, ALT 15, Alkaline Phosphatase 124 H, Troponin I High Sens 3574 H*, Total Protein 5.7 L, Albumin 2.5 L, Globulin 3.2, Albumin/Globulin Ratio 0.8 L, Lipase 162, TSH 2.77 05/09/22 20:12: Urine Color Yellow, Urine Clarity Sl. Cloudy, Urine pH 6.0, Ur Specific [place] 1.015, Urine Protein 100 H, Urine Glucose (UA) 100 H, Urine Ketones Negative, Urine Occult Blood 50 H, Urine Nitrite Negative, Urine Bilirubin Negative, Urine Urobilinogen Normal, Ur Leukocyte Esterase 500 H, Urine RBC 5-10 SEEN, Urine WBC >100 SEEN, Ur Squamous Epith Cells 5-10 SEEN, Amorphous Sediment 1+ URATE, Urine Bacteria RARE, Urine Mucus 0 SEEN 05/09/22 21:19: PT 12.6, INR 1.0, APTT 28.1 05/09/22 21:43: Troponin I High Sens Cancelled 05/09/22 22:45: Troponin I High Sens 3856 H* 05/10/22 02:40: Troponin I High Sens 4304 H* 05/10/22 04:58: WBC 9.3, RBC 2.78 L, Hgb 8.0 L, Hct 25.1 L, MCV 90.3, MCH 28.8, MCHC 31.9 L, RDW Std Deviation 47.1 H, RDW Coeff of [place] 14.2, Plt Count 202, MPV 11.6, Immature Gran % (Auto) 1.100 H, Neut % (Auto) 62.4, Lymph % (Auto) 21.9, Turner % (Auto) 8.9, Eos % (Auto) 5.1 H, Baso % (Auto) 0.6, Absolute Neuts (auto) 5.8, Absolute Lymphs (auto) 2.04, Nucleated RBC % 0 05/10/22 04:58: Sodium 140, Potassium 3.4 L, Chloride 111 H, Carbon Dioxide 17.0 L, Anion Gap 12, BUN 61 H, Creatinine 6.95 H, Estim Creat Clear Calc 7.01, Est GFR (MDRD) Af Amer 8 L, Est GFR (MDRD) Non-Af 6 L, BUN/Creatinine Ratio 8.8 L, Glucose 90, Calcium 8.9, Magnesium 1.9, Total Bilirubin 0.30, AST 26, ALT 13, Alkaline Phosphatase 101, Total Protein 4.6 L, Albumin 2.0 L, Globulin 2.6, Albumin/Globulin Ratio 0.8 L, Triglycerides 52, Cholesterol 81, LDL Cholesterol 29, VLDL Cholesterol 10, HDL Cholesterol 42 05/10/22 04:58: APTT 192.8 H* Micro: Microbiology 05/09/22 20:12 Urine, Clean Catch Urine Culture - Preliminary Gram Positive Cocci Radiography Diagnostic Testing: Radiology Impression Chest X-Ray 05/09/22 20:25 IMPRESSION: No acute cardiopulmonary disease or major interval change. Electronically Signed: Francisco Long DO at 20:46 EDT Reading Location ID and State: [address] [place] [address] Tel [phone], Service support , Echocardiogram 05/09/22 22:08 Interpretation Summary The study was technically difficult. Segmental dysfunction with preserved ejection fraction (see wall motion). The estimated ejection fraction is 55 %. Sigmoid septum. There is moderate to severe mitral annular calcification. Extension of the mitral annular calcification onto the base of the posterior mitral valve leaflet. Trivial mitral valve insufficiency. Trivial tricuspid valve insufficiency. Mild diffuse aortic valve thickening. Trivial aortic valve insufficiency. Unable to estimate RV systolic pressure/pulmonary artery pressure due to technically difficult study. Diastolic function is indeterminate. Ordering Physician: Libby Wick Referring Physician: Jewell Bowens Performed By: Kathya Lino, KARSTEN, RVT Physical Exam Const alert, oriented x3, no apparent distress, average body habitus and healthy appearing General Appearance: cooperative, well kempt and well developed Orientation / Consciousness: awake, oriented to person, oriented to place and oriented to time HEENT normocephalic and moist oral mucous membranes Eyes PERRL, EOMs intact bilaterally and conjunctivae normal Neck supple, no JVD, thyroid normal and no carotid bruits General: trachea midline Resp normal respiratory effort, no retractions, no use of accessory muscles and clear to auscultation bilaterally Auscultation: Negative for rales, rhonchi or wheezes Cardio regular rate, regular rhythm, S1 normal heart sound, S2 normal heart sound, no murmurs, no rub and no gallops GI normal to inspection, nondistended, normoactive bowel sounds, soft to palpation, non-tender and non-distended Extremity no clubbing, cyanosis or edema Skin no rashes or lesions noted General Skin Exam: no breakdown Neuro oriented x3, CN's II-XII intact bilaterally, moves all extremities, no focal motor deficits and no sensory deficits noted Sensorium / Orientation: awake and alert Speech: speech normal Psych affect normal Assessment & Plan Assessment/Plan (1) NSTEMI, initial episode of care: PLAN: Plan #1 NSTEMI-patient underwent a cardiac catheterization today, and showed obstructive coronary disease in the right coronary artery, a drug-eluting stent was placed #2 occlusive coronary artery disease-right coronary artery-status post drug-eluting stent placement right coronary artery today, patient will remain on her present medications, echocardiogram today before her catheterization showed a normal EF. #3 end-stage renal disease on chronic dialysis-patient was dialyzed today, nephrology is participating in her care #4 anemia of chronic kidney disease-patient's hemoglobin today was 8, labs will be rechecked tomorrow #5 hypokalemia-patient's labs will be rechecked tomorrow #6 essential hypertension-patient will remain on her present medication Charges/Coding Visit Charges Inpatient E&M: 01358 Subs Hosp L2
[2022-05-10] MEDS: Atorvastatin Calcium 40 MG Tablet PO (20:33)
[2022-05-11] VITALS (15 sets, daily range): BP systolic 80–128; BP diastolic 39–105; PULSE 68–76; RESP 12–22; TEMP 36.6–36.9; O2SAT 97–100
[2022-05-11] MEDS: 0.9% Normal Saline 1,000 ML 75 ML IV (00:49)
[2022-05-11 05:44] LABS: Hematocrit 21.2 % (37-47); Hemoglobin 7.1 g/dL (12.0-15.0); Mean Corp Hgb Conc 33.5 g/dL (32-36); Mean Corpuscular Hgb 29.3 pg (27.0-32.0); Mean Corpuscular Volume 87.6 fL (81-99); Mean Platelet Vol. 11.8 fl (6.2-12.0); Platelet Count 188 K/mm3 (150-450); RBC Distribution Width CV 14.2 % (11.6-14.6); Red Blood Count 2.42 M/mm3 (4.2-5.4); White Blood Count 10.1 K/mm3 (4.4-11.0)
[2022-05-11 06:20] LABS: ALB/GLOB Ratio 0.8 RATIO (0.9-2.4); AST(SGOT) 21 U/L (15-37); Alanine Aminotransfer ALT/SGPT 12 U/L (13-56); Albumin, Serum 1.9 g/dL (3.2-5.0); Alkaline Phosphatase 89 U/L (45-117); Anion Gap 10 (5-15); BUN 55 mg/dL (7-18); BUN/Creat Ratio 8.9 RATIO (10-20); Calcium,Total 8.6 mg/dL (8.5-10.1); Chloride 107 mmol/L (98-107); Creatinine, Serum 6.17 mg/dL (0.55-1.02); EST Glomerular Filtration Rate 7 mL/min (>60); Est Glom Filt Rate - Afr Amer 9 mL/min (>60); Globulin 2.3 g/dL (2.2-4.2); Glucose 118 mg/dL (74-106); Potassium 3.7 mmol/L (3.5-5.1); Protein, Total 4.2 g/dL (6.4-8.2); Sodium Level 138 mmol/L (136-145)
[2022-05-11] MEDS: Ondansetron 4 MG/2 ML Vial IV (06:30)
[2022-05-11] MEDS: 0.9% Saline Lock 10 ML Syringe IV (06:32)
--- NOTE | 2022-05-11 08:21 | PN.CARD_ITS ---
Subjective Subjective The patient is awake and alert. She denies any ongoing chest discomfort or difficulty breathing. Objective Data Vital Signs: Vital Signs Temp Pulse Resp BP Pulse Ox O2 Del Method 98.0 F 68 18 108/40 L 100 Room Air 05/11/22 02:50 05/11/22 07:02 05/11/22 02:50 05/11/22 02:50 05/11/22 02:50 05/11/22 07:46 Oxygen Delivery Method Room Air Weight: 142 lb 10.225 oz Body Mass Index (BMI) 21.4 Intake & Output: Intake and Output for Last 24 Hours 05/09/22 05/10/22 05/11/22 23:59 23:59 23:59 Intake Total 335 / 335 1158 / 1158 652.5 / 652.5 Balance 335 / 335 1158 / 1158 652.5 / 652.5 Lab / Micro Data Result Diagrams: 05/11/22 04:07 05/11/22 04:07 Labs: Laboratory Results - last 24 hr 05/11/22 04:07: WBC 10.1, RBC 2.42 L, Hgb 7.1 L, Hct 21.2 L, MCV 87.6, MCH 29.3, MCHC 33.5 D, RDW Std Deviation 45.0 H, RDW Coeff of [place] 14.2, Plt Count 188, MPV 11.8 05/11/22 04:07: Sodium 138, Potassium 3.7, Chloride 107, Carbon Dioxide 21.0, Anion Gap 10, BUN 55 H, Creatinine 6.17 H, Estim Creat Clear Calc 7.90, Est GFR (MDRD) Af Amer 9 L, Est GFR (MDRD) Non-Af 7 L, BUN/Creatinine Ratio 8.9 L, Glucose 118 H, Calcium 8.6, Total Bilirubin 0.30, AST 21, ALT 12 L, Alkaline Phosphatase 89, Total Protein 4.2 L, Albumin 1.9 L, Globulin 2.3, Albumin/Globulin Ratio 0.8 L Micro: Microbiology 05/09/22 20:12 Urine, Clean Catch Urine Culture - Preliminary Gram Positive Cocci Cardiology Labs/Tests 05/11/22 04:07: WBC 10.1, RBC 2.42 L, Hgb 7.1 L, Hct 21.2 L, MCV 87.6, MCH 29.3, MCHC 33.5 D, Plt Count 188, MPV 11.8 05/11/22 04:07: Sodium 138, Potassium 3.7, Chloride 107, Carbon Dioxide 21.0, Anion Gap 10, BUN 55 H, Creatinine 6.17 H, Est GFR (MDRD) Af Amer 9 L, Est GFR (MDRD) Non-Af 7 L, BUN/Creatinine Ratio 8.9 L, Glucose 118 H, Calcium 8.6, Total Bilirubin 0.30 Rhythm: Sinus rhythm Radiography Diagnostic Testing: Radiology Impression Echocardiogram 05/09/22 22:08 Interpretation Summary The study was technically difficult. Segmental dysfunction with preserved ejection fraction (see wall motion). The estimated ejection fraction is 55 %. Sigmoid septum. There is moderate to severe mitral annular calcification. Extension of the mitral annular calcification onto the base of the posterior mitral valve leaflet. Trivial mitral valve insufficiency. Trivial tricuspid valve insufficiency. Mild diffuse aortic valve thickening. Trivial aortic valve insufficiency. Unable to estimate RV systolic pressure/pulmonary artery pressure due to technically difficult study. Diastolic function is indeterminate. Ordering Physician: Libby Wick Referring Physician: Jewell Bowens Performed By: Kathya Lino, KARSTEN, RVT Physical Exam Const alert, oriented x3 and no apparent distress Orientation / Consciousness: awake HEENT normocephalic, head/scalp atraumatic and hearing grossly normal bilaterally Eyes PERRL, EOMs intact bilaterally, conjunctivae normal and no scleral icterus Neck full ROM, supple and no JVD Resp normal respiratory effort and clear to auscultation bilaterally Cardio regular rate, regular rhythm, S1 normal heart sound and S2 normal heart sound GI normal to inspection, nondistended, normoactive bowel sounds Extremity no pedal edema Extremity Narrative: Right radial artery area: Negative bruit: Negative hematoma: Positive ecchymoses Right inguinal area: Femoral artery: Negative bruit: Negative hematoma Skin no rashes or lesions noted Psych mental status grossly normal Assessment & Plan Assessment/Plan (1) NSTEMI, initial episode of care: PLAN: The patient presents with findings concerning for an acute non-ST segment elevation NV. The patient has subsequently undergone evaluation with both noninvasive and invasive studies. Based upon her cardiac catheterization study she was found to have angio graphically significant RCA disease. She subsequently underwent RCA PTCA/JOSEFINA. She will need to continue medical management as tolerated and able based upon her underlying renal insufficiency. She should be considered for outpatient cardiac rehabilitation. She will need future outpatient cardiovascular follow-up. (2) Hypertension: QUALIFIERS: Hypertension type: essential hypertension Qualified Code(s): I10 - Essential (primary) hypertension PLAN: The patient has a history of hypertension. She will continue medical management as deemed appropriate. (3) ESRD (end stage renal disease) on dialysis: PLAN: The patient has been on home peritoneal dialysis. She will need in-hospital dialysis orchestrated by her nephrology team. (4) Anemia: PLAN: The patient does have a history of chronic anemia. This may be related to her chronic end-stage renal disease. She has been evaluated by endoscopy procedures in the past and appears to have been found to have in 2019 episodes of gastritis. Her hemoglobin level has continued to decline. This may be multifactorial with respect to her anemia of chronic disease potentially related to her renal insufficiency as well as undergoing her recent invasive procedure and volume shifts. However there still may be a concern as to whether or not she could have any obvious recurrence of any gastrointestinal bleeding process. Her anemia issue will need to be further addressed by her hospitalist team as deemed appropriate. Addt'l Comments The patient's case was discussed and viewed with the patient and with Dr. Neumann. This note was generated using a voice recognition system and there may be incorrect words, spelling or punctuation that were not noted when reviewing the office note prior to saving.
--- NOTE | 2022-05-11 09:37 | DIALYSIS ---
ccpd complete. net uf 121. tolerated well. effluent clear yellow no fibrin noted. dressing dry and intact. sterile stay safe cap in place. line clamped and secured. anticipates discharge later today. report to gelacio dickey rn.
[2022-05-11] MEDS: Carvedilol 3.125 MG TABLET PO ×2 (09:52→18:20)
[2022-05-11] MEDS: Aspirin E.C. 81 MG Tablet PO (09:52)
[2022-05-11] MEDS: Magnesium Chloride 64 MG Delay Rel.Tablet 128 MG PO (09:52)
[2022-05-11] MEDS: Clopidogrel Bisulfate 75 MG Tablet PO (09:53)
[2022-05-11] MEDS: Sodium Bicarbonate 650 MG Tablet 1300 MG PO (09:53)
[2022-05-11] MEDS: Potassium Chloride Oral Tablet 20 MEQ PO ×2 (09:53→18:20)
[2022-05-11] MEDS: Calcium Acetate 667 MG Capsule 1334 MG PO ×3 (09:53→18:20)
--- NOTE | 2022-05-11 10:00 | EKG12_ITS ---
Test Reason : am EKG Blood Pressure : / mmHG Vent. Rate : 073 BPM Atrial Rate : 073 BPM P-R Int : 146 ms QRS Dur : 062 ms QT Int : 382 ms P-R-T Axes : 034 017 053 degrees QTc Int : 420 ms Normal sinus rhythm Normal ECG When compared with ECG of 10-MAY-2022 13:26, Nonspecific T wave abnormality no longer evident in Anterolateral leads Confirmed by MILLIE SHERIFF, ESTHELA ([id number]), design editor AMBAR JASSO ([id number]) on 05/23/2022 9:59:39 AM Referred By: YOAV Confirmed By:ESTHELA PINTO MD
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
--- NOTE | 2022-05-11 12:15 | EKG12_ITS ---
Test Reason : PCI Blood Pressure : / mmHG Vent. Rate : 074 BPM Atrial Rate : 074 BPM P-R Int : 122 ms QRS Dur : 080 ms QT Int : 412 ms P-R-T Axes : 032 014 079 degrees QTc Int : 457 ms Normal sinus rhythm Normal ECG Confirmed by ESTHELA PINTO MD ([id number]), social media editor ANTONIA CARRION ([id number]) on 05/29/2022 2:11:11 PM Referred By: Geronimo Keene Confirmed By:ESTHELA PINTO MD
--- NOTE | 2022-05-11 12:18 | PN.RENAL_ITS ---
Subjective Subjective feels better s/p PCI to RCA Objective Data Objective Data Vital Signs: Vital Signs Temp Pulse Resp BP Pulse Ox O2 Del Method 98.0 F 72 22 H 115/67 98 Room Air 05/11/22 09:35 05/11/22 11:02 05/11/22 09:35 05/11/22 09:35 05/11/22 08:40 05/11/22 09:35 Oxygen Delivery Method Room Air Weight: 64.7 kg Body Mass Index (BMI) 21.4 Intake & Output: Intake and Output for Last 24 Hours 05/09/22 05/10/22 05/11/22 23:59 23:59 23:59 Intake Total 335 / 335 1158 / 1158 1516.25 / 1516.25 Output Total 121 / 121 Balance 335 / 335 1158 / 1158 1395.25 / 1395.25 Lab / Micro Data Attestation: I reviewed the patient's lab results. Result Diagrams: 05/11/22 04:07 05/11/22 04:07 Labs: Laboratory Results - last 24 hr 05/11/22 04:07: WBC 10.1, RBC 2.42 L, Hgb 7.1 L, Hct 21.2 L, MCV 87.6, MCH 29.3, MCHC 33.5 D, RDW Std Deviation 45.0 H, RDW Coeff of [place] 14.2, Plt Count 188, MPV 11.8 05/11/22 04:07: Sodium 138, Potassium 3.7, Chloride 107, Carbon Dioxide 21.0, An ion Gap 10, BUN 55 H, Creatinine 6.17 H, Estim Creat Clear Calc 7.90, Est GFR (MDRD) Af Amer 9 L, Est GFR (MDRD) Non-Af 7 L, BUN/Creatinine Ratio 8.9 L, Glucose 118 H, Calcium 8.6, Total Bilirubin 0.30, AST 21, ALT 12 L, Alkaline Phosphatase 89, Total Protein 4.2 L, Albumin 1.9 L, Globulin 2.3, Albumin/Globulin Ratio 0.8 L 05/11/22 08:55: Blood Type O NEGATIVE, Antibody Screen NEGATIVE, Crossmatch See Detail Micro: Microbiology 05/09/22 20:12 Urine, Clean Catch Urine Culture - Final GPC Poss Enterococcus sp Mixed Gram Positive Organisms Physical Exam Narrative alert, no acute distress s1s2 regular b/s equal abdomen non tender no edema +PD catheter Assessment & Plan Assessment/Plan (1) ESRD (end stage renal disease) on dialysis: (2) NSTEMI, initial episode of care: PLAN: Plan Assessment 72 y/o female, hx of ESRD on CCPD, admitted to hospital due to chest pain. Nephrology consulted for management of her ESRD 1. ESRD on CCPD -doing well on CCPD 2. NSTEMI -s/p heart cath with pci 3. Anemia -getting blood transfusion Plan -patient getting blood, give 40mg of iv lasix in between units -continue wiht ccpd on d/c will follow, please call [phone] with any concerns.
--- NOTE | 2022-05-11 15:55 | DCINST_ITS ---
Discharge Instructions Diet Discharge Diet: No restrictions Activity Discharge Activity: Return to Normal Activity Weight Bearing Status: Full weight bearing Follow Up Care Test Results: Test results from this visit will be discussed in further detail at your follow- up appointment, if applicable. Discharge Plan Admission Admit Date/Time: 05/09/22 21:06 Primary Reason for Your Visit: NSTEMI Attending Provider: Madhav Neumann Primary Care Provider: Jewell Bowens Consulting Providers: Emerson Real ; Nora Allen ; Libby Wick Discharge Orders/Prescriptions Prescriptions: New atorvastatin 40 mg Tablet 40 mg PO QHS Qty: 30 0RF clopidogrel 75 mg Tablet 75 mg PO DAILY Qty: 30 0RF aspirin 81 mg Tablet,Delayed Release (Dr/Ec) 81 mg PO BREAKFAST Qty: 30 0RF carvedilol 3.125 mg Tablet 3.125 mg PO BIDCM Qty: 60 0RF pantoprazole [Protonix] 40 mg tablet,delayed release (DR/EC) 40 mg PO DAILY Qty: 30 0RF Continued hydroxyzine HCl 25 mg Tablet 50 mg PO QHS PRN (Reason: Itching) magnesium oxide 400 mg magnesium Tablet 400 mg PO DAILY B12 Active 1,000 mcg Tablet,Chewable 2,000 mcg PO DAILY potassium chloride 20 MEQ tablet,ER particles/crystals 20 meq PO BID sodium bicarbonate 650 mg tablet 1,300 mg PO BID Label Comments: TAKE 2 TABLETS BY MOUTH THREE TIMES DAILY ergocalciferol (vitamin D2) [Vitamin D2] 1,250 mcg (50,000 unit) Capsule 1,250 mcg PO QWEEK calcium acetate(phosphat bind) 667 mg Capsule 1,334 mg PO TID calcitriol 0.5 mcg Capsule 1 mcg PO MOWEFR hydrocodone-acetaminophen 1 TABLET tablet 1 tab PO Q8H PRN PRN (Reason: Pain) 7 Days Qty: 15 0RF oxycodone-acetaminophen [Percocet] 5-325 mg tablet 1 tab PO Q8H PRN (Reason: pain) 3 Days Qty: 10 0RF prednisone 20 mg tablet 40 mg PO DAILY PRN (Reason: Radiologic Visualization) paroxetine HCl 20 mg tablet 20 tab PO DAILY Label Comments: TAKE 1 TABLET BY MOUTH DAILY FOR 7 DAYS then increase to 1&1/2 TABLETS DAILY THEREAFTER Discontinued famotidine [Pepcid] 20 mg Tablet 20 mg PO DAILY PRN (Reason: gerd) Referrals / Follow Up: Jewell Bowens DO [Primary Care Provider] - Within 2 Weeks Emerson Real MD [Med Staff - Active Staff] - See Referral Note (call office to schedule follow up) Disposition Disposition (needs filled in before D/C Order can be placed): Home, Self Care
[2022-05-11] MEDS: Furosemide 40 MG/4 ML Vial IV (16:04)
--- NOTE | 2022-05-11 16:21 | PCM.DC.SUM ---
Providers Date of Admission: 05/09/22 Date of Discharge: 05/11/22 Primary Care Physician: Dr. Jewell Bowens, DO Consultations 05/09/22 22:08 Consult: Cardiology Routine Consulting Provider: Emerson Real Reason for Consult: NSTEMI EMERGENT Consult: No Notified: Yes Date Notified: 05/09/22 Time Notified: 21:07 Method of Notification: ED Physician Initiated Consult: Nephrology Routine Consulting Provider: Nora Allen Reason for Consult: ESRD on PD, admit with NSTEMI EMERGENT Consult: No Notified: Yes Date Notified: 05/09/22 Time Notified: 23:37 Method of Notification: Answering Service Reason For Visit: NSTEMI Diagnosis Discharge Diagnosis (1) ESRD (end stage renal disease) on dialysis: Status: Acute Code(s): N18.6 - End stage renal disease; Z99.2 - Dependence on renal dialysis (2) NSTEMI, initial episode of care: Status: Acute Code(s): I21.4 - Non-ST elevation (NSTEMI) myocardial infarction Plan #1 NSTEMI-patient underwent a cardiac catheterization today, and showed obstructive coronary disease in the right coronary artery, a drug-eluting stent was placed #2 occlusive coronary artery disease-right coronary artery-status post drug-eluting stent placement right coronary artery today, patient will remain on her present medications, echocardiogram today before her catheterization showed a normal EF. #3 end-stage renal disease on chronic dialysis-patient was dialyzed today, nephrology is participating in her care #4 anemia of chronic kidney disease-patient's hemoglobin today was 8, labs will be rechecked tomorrow #5 hypokalemia-patient's labs will be rechecked tomorrow #6 essential hypertension-patient will remain on her present medication #7 anemia of chronic kidney disease requiring transfusion of packed red blood cells Medications at Discharge Home Medications hydroxyzine HCl 25 mg tablet 50 mg PO QHS PRN Itching 12/17/21 magnesium oxide 400 mg PO DAILY supplement 12/17/21 mecobalamin (vitamin B12) 1,000 mcg chewable tablet (B12 Active) 2,000 mcg PO DAILY vitamin 12/17/21 potassium chloride 20 mEq tablet,extended release(part/cryst) 20 meq PO BID supplement 12/17/21 calcitriol 0.5 mcg capsule 1 mcg PO MOWEFR bone health 01/06/22 calcium acetate(phosphat bind) 667 mg capsule 1,334 mg PO TID dialysis 01/06/22 ergocalciferol (vitamin D2) 1,250 mcg (50,000 unit) capsule (Vitamin D2) 1,250 mcg PO QWEEK vitamin 01/06/22 sodium bicarbonate 650 mg tablet 1,300 mg PO BID supplement 01/06/22 hydrocodone-acetaminophen 5-325mg 5mg-325mg 1 tab PO Q8H PRN PRN Pain 7 days #15 TABLETS 01/09/22 oxycodone-acetaminophen 5 mg-325 mg tablet (Percocet) 1 tab PO Q8H PRN pain 3 days #10 tabs 03/06/22 prednisone 20 mg tablet 40 mg PO DAILY PRN Radiologic Visualization 03/16/22 paroxetine HCl 20 mg tablet 20 tab PO DAILY depression 05/10/22 aspirin 81 mg tablet,delayed release 81 mg PO BREAKFAST #30 tabs 05/11/22 atorvastatin 40 mg tablet 40 mg PO QHS #30 tabs 05/11/22 carvedilol 3.125 mg tablet 3.125 mg PO BIDCM #60 tabs 05/11/22 clopidogrel 75 mg tablet 75 mg PO DAILY #30 tabs 05/11/22 pantoprazole 40 mg tablet,delayed release (Protonix) 40 mg PO DAILY #30 tabs 05/11/22 Hospital Course Operations None Procedures 2-D Echocardiogram, Cardiac catheterization (JOSEFINA placement in right coronary artery) and Dialysis (Peritoneal dialysis) Summary of Care Provided Minutes Spent on Discharge: 32 Hospital Course: This 72-year-old white female was seen in the emergency room at [facility] with complaints of generalized weakness. She also complained of some shortness of breath. Work-up in the emergency room showed the patient to have hemoglobin 9.6, creatinine was 7.36, and troponin was elevated at 3574. Potassium was 3.2 EKG revealed normal sinus rhythm without evidence of ischemic changes. In speaking with her a second time, the emergency room physician did obtain a complaint of some chest heaviness from the patient, cardiology was contacted and patient was placed on a heparin bolus and drip. Patient was admitted to PCU and cardiac enzymes were cycled and remained elevated. Patient underwent a cardiac catheterization which showed occlusive coronary disease to the right coronary artery, a JOSEFINA was placed on the right coronary artery, patient had no untoward events during the catheterization and stent placement. Patient underwent an echocardiogram which showed normal EF, there was a concern for the patient's anemia due to her coronary artery disease and she was given 2 units of packed red blood cells. Patient underwent peritoneal dialysis during her hospital stay-patient is in end-stage renal disease patient that uses home peritoneal dialysis. On 05/11/2022, patient was seen and examined: On examination she appeared in good health and spirits, she does not appear to be in any distress. Vital signs as documented. Skin warm and dry and without overt rashes. Neck without JVD, thyroid appears normal, trachea is midline, neck is supple. Lungs clear, normal air movement was noted. Heart exam notable for regular rhythm, normal sounds and absence of murmurs, rubs or gallops. Abdomen unremarkable and without evidence of organomegaly, masses, or abdominal aortic enlargement, bowel sounds are present in all 4 quadrants, no abdominal tenderness was noted. Extremities nonedematous, no cyanosis was noted, no clubbing was noted. Neuro: Cranial nerves II through XII are grossly intact, no focal motor deficits were noted, sensation to light touch and pinprick is intact, motor exam 5/5 throughout. Psych: Patient is alert and oriented x3, she does not appear anxious or depressed, she does not appear agitated. On 05/11/2022, patient was discharged home in stable condition. Weight / BMI Weight Weight: 64.7 kg Body Mass Index (BMI) 21.4 ABG / Lab / Microbiology Data Result Diagrams: 05/11/22 20:15 05/11/22 04:07 Laboratory: Laboratory Results - last 24 hr 05/11/22 04:07: WBC 10.1, RBC 2.42 L, Hgb 7.1 L, Hct 21.2 L, MCV 87.6, MCH 29.3, MCHC 33.5 D, RDW Std Deviation 45.0 H, RDW Coeff of [place] 14.2, Plt Count 188, MPV 11.8 05/11/22 04:07: Sodium 138, Potassium 3.7, Chloride 107, Carbon Dioxide 21.0, Anion Gap 10, BUN 55 H, Creatinine 6.17 H, Estim Creat Clear Calc 7.90, Est GFR (MDRD) Af Amer 9 L, Est GFR (MDRD) Non-Af 7 L, BUN/Creatinine Ratio 8.9 L, Glucose 118 H, Calcium 8.6, Total Bilirubin 0.30, AST 21, ALT 12 L, Alkaline Phosphatase 89, Total Protein 4.2 L, Albumin 1.9 L, Globulin 2.3, Albumin/Globulin Ratio 0.8 L 05/11/22 08:55: Blood Type O NEGATIVE, Antibody Screen NEGATIVE, Crossmatch See Detail Microbiology: Microbiology 05/09/22 20:12 Urine, Clean Catch Urine Culture - Final GPC Poss Enterococcus sp Mixed Gram Positive Organisms D/C Instructions Discharge Diet: No restrictions Weight Bearing Status: Full weight bearing Meaningful Use Info Meaningful Use Diagnoses (Choose all that apply): AMI AMI/Post PCI/Angioplasty Aspirin given w/in 24hrs of arrival?: Yes ASA at discharge?: Yes Antiplatelet Therapy at Discharge:: Yes Statins at discharge?: Yes Johnny/ARB at discharge?: No Reason Johnny/ARB not ordered:: Not indicated Beta Stacy at discharge?: Yes Done w/ Acute SD measure.: Yes Documented LVEF (%): 55 Discharge Plan Admission Admit Date/Time: 05/09/22 21:06 Primary Reason for Your Visit: NSTEMI Attending Provider: Madhav Neumann Primary Care Provider: Jewell Bowens Consulting Providers: Emerson Real ; Nora Allen ; Libby Wick Discharge Orders/Prescriptions Prescriptions: New atorvastatin 40 mg Tablet 40 mg PO QHS Qty: 30 0RF clopidogrel 75 mg Tablet 75 mg PO DAILY Qty: 30 0RF aspirin 81 mg Tablet,Delayed Release (Dr/Ec) 81 mg PO BREAKFAST Qty: 30 0RF carvedilol 3.125 mg Tablet 3.125 mg PO BIDCM Qty: 60 0RF pantoprazole [Protonix] 40 mg tablet,delayed release (DR/EC) 40 mg PO DAILY Qty: 30 0RF Continued hydroxyzine HCl 25 mg Tablet 50 mg PO QHS PRN (Reason: Itching) magnesium oxide 400 mg magnesium Tablet 400 mg PO DAILY B12 Active 1,000 mcg Tablet,Chewable 2,000 mcg PO DAILY potassium chloride 20 MEQ tablet,ER particles/crystals 20 meq PO BID sodium bicarbonate 650 mg tablet 1,300 mg PO BID Label Comments: TAKE 2 TABLETS BY MOUTH THREE TIMES DAILY ergocalciferol (vitamin D2) [Vitamin D2] 1,250 mcg (50,000 unit) Capsule 1,250 mcg PO QWEEK calcium acetate(phosphat bind) 667 mg Capsule 1,334 mg PO TID calcitriol 0.5 mcg Capsule 1 mcg PO MOWEFR hydrocodone-acetaminophen 1 TABLET tablet 1 tab PO Q8H PRN PRN (Reason: Pain) 7 Days Qty: 15 0RF oxycodone-acetaminophen [Percocet] 5-325 mg tablet 1 tab PO Q8H PRN (Reason: pain) 3 Days Qty: 10 0RF prednisone 20 mg tablet 40 mg PO DAILY PRN (Reason: Radiologic Visualization) paroxetine HCl 20 mg tablet 20 tab PO DAILY Label Comments: TAKE 1 TABLET BY MOUTH DAILY FOR 7 DAYS then increase to 1&1/2 TABLETS DAILY THEREAFTER Discontinued famotidine [Pepcid] 20 mg Tablet 20 mg PO DAILY PRN (Reason: gerd) Referrals / Follow Up: Jewell Bowens DO [Primary Care Provider] - Within 2 Weeks (Please call office to schedule your appointment. ) Hao Lino NP, [employer] [Med Staff - Adv Practice Prof] - 05/24/22 1:30 pm Disposition Disposition (needs filled in before D/C Order can be placed): Home, Self Care Charges/Coding Visit Charges Inpatient E&M: 70875 Disch Hosp
[2022-05-11 20:45] LABS: Hematocrit 31.7 % (37-47); Hemoglobin 10.4 g/dL (12.0-15.0)
== END 2022-05-11 20:48 | disposition home or self-care (01) | DRG 246 ==
LOC: ED 21:16 → PCU 21:27
PROVIDERS: Internal Medicine Cardiovascular Disease; Nurse Practitioner Family; Specialist; Admitting Provider Family Medicine; Emergency Provider Emergency Medicine; PCP Family Medicine; Visit Provider Internal Medicine
DX: I21.4 Non-ST elevation (NSTEMI) myocardial infarction (principal); N18.6 End stage renal disease; I12.0 Hypertensive chronic kidney disease with stage 5 chronic kidney disease or end stage renal disease; D63.1 Anemia in chronic kidney disease; R62.7 Adult failure to thrive; Z99.2 Dependence on renal dialysis; M06.9 Rheumatoid arthritis, unspecified; E87.6 Hypokalemia; I25.2 Old myocardial infarction; I25.10 Atherosclerotic heart disease of native coronary artery without angina pectoris; E83.42 Hypomagnesemia; K21.9 Gastro-esophageal reflux disease without esophagitis; F32.A Depression, unspecified; Z96.0 Presence of urogenital implants; Z66 Do not resuscitate; Z68.20 Body mass index [BMI] 20.0-20.9, adult; Z79.02 Long term (current) use of antithrombotics/antiplatelets; Z79.82 Long term (current) use of aspirin; Z79.891 Long term (current) use of opiate analgesic; Z79.899 Other long term (current) drug therapy; Z87.440 Personal history of urinary (tract) infections; Z87.442 Personal history of urinary calculi
CPT/HCPCS: 36415; 71045; 80053; 80061; 81001; 83690; 83735; 84443; 84484; 85014; 85018; 85025; 85027; 85610; 85730; 86850; 86900; 86901; 86920; 86922; 87086; 87088; 90947; 92928; 93005; 93306; 93454; 93458; 97162; 97166; 99152; 99153; 99251; 99285; C1874; J7030; J7040; P9016; Q9957; Q9967; A4216; C1725; C1760; C1769; C1887; C1894; C9600; G0257; G0463; J0583; J1940; J2405

== ENCOUNTER → 2022-05-22 | Outpatient (CLI) | payer MEDICARE, OTHER, SELFPAY ==
--- NOTE | 2022-05-22 10:47 | PCM.CR.HP2 ---
CR - History & Physical - General Arrival date:: 05/22/22 Arrival time:: 10:48 Date of Referral:: 05/13/22 Date of CR Evaluation:: 05/22/22 Referring Physician: DR. ERNIE FOSTER Primary Diagnosis: CABG - History of Present Cardiac Event Onset Date: Enter Onset Date of cardiac illnesses in Comment field below Acute Myocardial Infarction within 12 months:: Yes - NON-ST ELEVATED MYOCARDIAL INFARCTION PTCA or coronary stenting:: Yes - PCI W/CORNONARY STENTING TO MID RCA Type of Symptoms:: Heaviness in the chest, sent for heart cath. Interventions with present event:: heart cath Were there any complications?: Developed a hematoma with severe bruising down the right leg. Still - Sleep Disorder Evaluation Hx of Sleep Apnea: No Do you snore loudly (louder than talking or can be heard through closed doors)?: No Do you often feel tired/ fatigued/ sleepy during daytime?: Yes Has anyone observed you stop breathing during sleep?: No History of Hypertension (for STOP score): Yes STOP Results: Positive - Medications Home Medications: Ambulatory Orders Medication Instructions Recorded hydroxyzine HCl 25 mg tablet 50 mg PO QHS PRN Itching 12/17/21 magnesium oxide 400 mg PO DAILY supplement 12/17/21 mecobalamin (vitamin B12) 1,000 2,000 mcg PO DAILY vitamin 12/17/21 mcg chewable tablet (B12 Active) potassium chloride 20 mEq 20 meq PO BID supplement 12/17/21 tablet,extended release(part/cryst) calcitriol 0.5 mcg capsule 1 mcg PO MOWEFR bone health 01/06/22 calcium acetate(phosphat bind) 667 1,334 mg PO TID dialysis 01/06/22 mg capsule ergocalciferol (vitamin D2) 1,250 1,250 mcg PO QWEEK vitamin 01/06/22 mcg (50,000 unit) capsule (Vitamin D2) sodium bicarbonate 650 mg tablet 1,300 mg PO BID supplement 01/06/22 hydrocodone-acetaminophen 5-325mg 1 tab PO Q8H PRN PRN Pain 7 days 01/09/22 5mg-325mg #15 TABLETS oxycodone-acetaminophen 5 mg-325 1 tab PO Q8H PRN pain 3 days #10 03/06/22 mg tablet (Percocet) tabs prednisone 20 mg tablet 40 mg PO DAILY PRN Radiologic 06/02/22 Visualization paroxetine HCl 20 mg tablet 20 tab PO DAILY depression 05/10/22 aspirin 81 mg tablet,delayed 81 mg PO BREAKFAST #30 tabs 05/11/22 release atorvastatin 40 mg tablet 40 mg PO QHS #30 tabs 05/11/22 carvedilol 3.125 mg tablet 3.125 mg PO BIDCM #60 tabs 05/11/22 clopidogrel 75 mg tablet 75 mg PO DAILY #30 tabs 05/11/22 pantoprazole 40 mg tablet,delayed 40 mg PO DAILY #30 tabs 05/11/22 release (Protonix) - Allergies Allergies/Adverse Reactions: Allergies adhesive tape Allergy (Verified 05/09/22 19:07) Rash ok with opsite drsgs amoxicillin [From Augmentin] Allergy (Verified 05/09/22 19:07) Swelling cephalexin [From Keflex] Allergy (Verified 05/09/22 19:07) Swelling clavulanic acid [From Augmentin] Allergy (Verified 05/09/22 19:07) Swelling latex Allergy (Verified 05/09/22 19:07) Rash Penicillins [PCN] Allergy (Verified 05/09/22 19:07) Swelling sulfamethoxazole [From Bactrim] Allergy (Verified 05/09/22 19:07) rash,swellling, itching trimethoprim [From Bactrim] Allergy (Verified 05/09/22 19:07) rash,swellling, itching walnut Allergy (Verified 05/09/22 19:07) Itching GREEN BEANS Allergy (Uncoded 05/09/22 19:07) Itching Advanced Directives - Advanced Directives Power of Airfreight Operations Agent: Yes Living Will: Yes Advance Directives Information Provided: No Advance Directives on File: Yes DNR Order?:: Yes - MOLST See MOLST form: Yes Past Medical History - Covid-19 Screening Fever: No Unexplained muscle aches: No Current respiratory symptoms: No Upper respiratory infections symptoms: No Gastro-intestinal symptoms: No Bxd-Faaz-Iznnqg symptoms: No Has tested positive for COVID-19 in last 30 days: No Date of testin05/22/22 - fully vaccinated with booster Had contact w/person w/symptoms or Covid-19 (+) last 14 days: No Has High Risk Exposures ID'd by Health dept/Inf Control team: No 65 years or older:: Yes Has a chronic lung disease or moderate to severe asthma:: No Has a serious heart condition:: Yes Immunocompromised:: Yes Severely obese (Body Mass Index of 40 or higher):: No Diabetic:: No Has chronic kidney disease undergoing dialysis:: Yes Has liver disease:: No - Past Medical Illness Medical History: Past Medical History (Last Updated 05/10/22 @ 17:39 by Brittney Champion) Acute kidney injury superimposed on CKD N17.9, N18.9 Ambulates with cane Z99.89 Anemia D64.9 HX OF Anxiety F41.9 Arterial steal syndrome I77.89 Arthritis M19.90 Atherosclerosis of coronary artery of [place] heart without angina pectoris I25.10 Back pain M54.9 KIDNEY STONE RELATED Chronic renal failure, stage 5 N18.5 Depression F32.A Dietary restriction Z71.3 Discoloration of skin L81.9 Easy bruising R23.8 ESRD (end stage renal disease) on dialysis N18.6, Z99.2 Gastric reflux K21.9 History of edema Z87.898 LUCI ANKLES History of renal dialysis Z92.89 7 DAYS WEEKS, 5X DAYS AT HOME History of renal disease Z87.448 END STAGE History of steroid therapy Z92.241 ON PREDNISONE PRN History of stress test Z92.89 2014 [facility] Hypertension I10 NO MEDS SINCE DIALYSIS HAS STARTED Peritoneal dialysis catheter in place Z99.2 Post-menopausal Z78.0 Renal calculi N20.0 Rheumatoid arthritis M06.9 Seasonal allergies J30.2 Shortness of breath on exertion R06.02 Superficial thrombophlebitis of arm I80.8 Urinary tract infection N39.0 Vascular dialysis catheter in place Z99.2 Wears glasses Z97.3 - Past Surgical History Surgical History: Past Surgical History (Last Updated 05/10/22 @ 17:39 by Brittney Champion) H/O hernia repair Z98.890, Z87.19 history Left AV Fistula Creation Onset Date: ~05/03/20 History of colonoscopy Z98.890 History of coronary artery stent placement Onset Date: 05/10/22 Z95.5 History of esophagogastroduodenoscopy (EGD) Z98.890 Hx of cystoscopy Z98.890 03/28/22 ESWL Hx of cystoscopy Z98.890 03/06/2022, LASER, STENT EXCHANGE S/P bypass gastroenterostomy Z98.0 S/P hemorrhoidectomy Z98.890, Z87.19 Surgical History: appendectomy, hysterectomy, - - 30 years ago 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, multiple cystoscopies due to kidney stones - Family History Summary Family History: Family History (Last Reviewed 05/09/22 @ 19:[address] Eric Gregory, DO) Mother Heart disease Diabetes Hypertension Father Dementia Social History - Smoking History Smoking Status: Never smoker Hx Tobacco Use: No Hx Smoking Exposure: No - Alcohol Use Alcohol Usage: No - Substance Abuse Hx Substance Use: No - Occupation Occupation (List type of work in comments):: Retired - Hobbies, Recreation, Social Activities Hobbies: Watch TV, Other - gardening, starkey, games puzzles, cooking Recreational Activities: I am able to engage in most, but not all activities, I can hardly do any recreational activities Social Environment - Status Marital Status: - Current Living Arrangements Living Environment:: Alone - Children How many children do you have?: 2 Do any of your children live nearby?: Yes - Safety Do you feel safe in your surroundings?: Yes - Assistance Do you need any assistance at home?: Daughter living with her now to assist Review of Systems - Review of Systems Hints: Right click = Denies (Slash). Left click = Reports (Backus) Review of Present Symptoms: Reports: Shortness of Breath at Rest, Shortness of Breath with Exertion, Dizziness/Lightheadedness - severely, Fatigue, Appetite - Special Diet, Sleep - Normal. Denies: Angina, Heart Arrhythmia/Irregularities, Appetite - Normal - little eater, eats very infrequently and small amounts, Sexual Changes - Pain Is Patient Pain Free?: No Pain Location: back, other - joints from rheumatoid arthritis Pain Level: 5/10 Risk Factor Assessment - Chief Complaint Chief Complaint: thE PATINET IS A 72 YR FEMALE W/PMHx End Stage Renal Disease on peritineal dialysis, chronic anemia, HTN, depression, anxiety, GERD, Rheumatoid arthritis who recently was admitted to [facility] with a Non-ST elevated myocardial infarction and PCI w/JOSEFINA to mid RCA. - Vital Signs Temperature: 97.2 F Respiratory Rate: 14 Pulse Ox: 96 Blood Pressure: 108/60 - Pulse Pulse Rate: 68 Pulse Rhythm: Regular - Hypertension Blood Pressure Sitting - Left Arm: 108/60 - Stress Stress: Home/Family - Blood Cholesterol/Lipids Total Cholesterol (mg/dL) Goal = less than 200 mg/dL: 52 HDL Cholesterol (mg/dL) Goal = less than 40 mg/dL: 42 LDL Cholesterol (mg/dL) Goal = less than 70 mg/dL: 29 Triglycerides (mg/dL) Goal = less than 150 mg/dL: 52 - Obesity Height: 5 ft 7 in Weight:: 142 lb Weight in Pounds: 142.0 lbs Weight Source: Stated by Patient Body Mass Index (BMI): 22.2 Nutritional Referral for Obesity: No - Physical Inactivity Physical Inactivity: None - Risk Stratification Risk Guidelines: Lowest Risk: Risk Factor for Smoking, Risk Factor for Diabetes, Risk Factor for Obesity, Risk Factor for Hypertension, Moderate Risk: Risk Factor for Dyslipidemia, Risk Factor for Depression, Highest Risk: Risk Factor for Sedentary Lifestyle, Risk Factor for Depression - Family History Family History: Family History (Last Reviewed 05/09/22 @ 19:[address] Eric Gregory, DO) Mother Heart disease Diabetes Hypertension Father Dementia Motivation - Motivation to Participate On a scale of 1 to 10, how prepared are you to commit to attending program?: 9 What do you see as barriers to successfully being able to complete the program?: dialysis at home 5 times day, What do you see as the benefits of succesfully completing the program? In other words, what do you hope to get out of participating in the program?: regain strength, better attitude, improve diet eating Are there issues you are dealing with that will interfere with completing the program?: none Do you have a spouse or signficant other, family or friends who will help support you to complete the program?: definately
--- NOTE | 2022-05-22 10:48 | PCM.CR.ITP ---
Diagnosis - General Information Admitting Diagnosis: NON-ST ELEVATED MYOCARDIAL INFARCTION and PCI W/CORONARY STENTING TO THE MID RCA VESSEL. Personal Learning Style:: Audio/Visual, Written Barriers to Learning: Vision Impairment Stage of change r/t lifestyle modifications:: Action Gave educational material for:: Treating Heart Disease, Emotions & Heart Disease, Stress Management & Relaxation, Sleep Disorders & Heart Disease, How The Heart Works, What it means to have Heart Disease, How Coronary Artery Disease is Diagnosed, Heart Procedures, What Heart Medications Do, Risk Factors & Modifications, Living an Active Life, Nutrition - Education/Goals Individual Counseling: Initial Assessment: Abnormal Cholesterol Levels, High Blood Pressure Cardiac Rehabilitation Goals: 1. Maintain the individual as the primary focus of care. 2. To improve the patient's quality of life. 3. Identification of cardiac risk factors and provide cardiac risk factor management. 4. Enhance the psychosocial status of the patient. 5. Reconditioning enough to allow the patient to resume customary activities. 6. Control symptoms of cardiac disease Personal Goals: Initial Assessment: Improve management of stress and emotions, Improve energy level, Participate in home exercise program, Get back to work, or to resume activities faster, Improve knowledge of cardiac disease, Improve muscle strength and endurance, Improve diet and eating habits (eat healthier), Control risk factors (learn risk factor modification) Scale for measuring improvement of personal goals: Enter appropriate number in Comments. 2 = Unchanged. 3 = Slightly Better. 4 = Moderate Improvement. 5 = Met my Goal - Diagnosis & Disease Process Outcomes/Goals: Pt IDs own risk factors & lifestyle modifications by Session 10, Verbalizes symptoms of angina & response by session 3., Pt independently manages Plan/Interventions: Assist Pt to ID & engage in lifestyle modification to reduce CVD risk, Instruct on individual risk factors, Review symptoms of angina & emergency actions, Review secondary diagnosis & identify educational needs. - Safety Referral to Physical Therapy: No Referral to [facility] Case Management: No Fall Risk Assessed:: Yes Assistive Devices:: Wheelchair Exercise - Initial Assessment - Visit Date of Eval: 05/22/22 Session #:: 0 - Pre-cardiac Rehab evaluation Mets: Pre-: >5 METS for 30 minutes by discharge - Physician Prescribed Exercise Modalities: NuStep, SciFit, Lateral [place] Frequency: 3x/week for 12 weeks [36 sessions] Intensity: 60-80% of age predicted maximum heart rate reserve Current METSs:: 2.0 Resting Blood Pressure: 108/40 EKG Type: SINUS RHYTHM Current Physical Activity or Exercising minutes: NONE - Outcomes & Goals Goals:: Verbalizes understanding of THR, RPE & goal METS by session 6, Documents in home exercise log/reports 30 min aerobic 5 day/wk by DC, Demonstrates accurate pulse taking by DC - Intervention & Plan Exercise Program Goals: Instruct on personal THR & RPE, Instruct on MET level & personal MET goal, Show patient to take own pulse /validate performance until accurate, Instruct on home exercise - Physical Activity Home Exercise Physical Activity - Home Exercise: Safe Exercise, Warm-up, Self-monitoring, Cool-Down, Home Exercise > 30 min Daily, Sitting Time <3 hours/daily - Outcomes & Goals Outcomes/Goals: Demonstrates correct Warm-up/exercise Cool-Down (S3) if = 2.5 METs, Verbalizes symptoms of exercise intolerance by Session 3 (S3), Demonstrate safe equipment use (S3) & follows exercise prescrition (6) - Intervention & Plan Plan/Intervention: Instruct warm-up & cool-down if exercising at > 2 METs, Instruct on symptoms of exercise intolerance & actions to take, Instruct & monitor on saf, Assess intial functional capacity & safety risk Nutrition - Initial Assessment - Program Goals Nutrition Program Goals: LDL <100 optimal. 100 - 129 Near optimal. 130 - 159 Borderline High. 160 - 189 High. Total Cholesterol <200 desirable. 200 - 239 Borderline High. >/= 240 High. HDL < 40 Low >/=60 High. Triglycerides <150 desirable. <199 optimal. VlDL 5 - 40. HgbA1C <7%. BMI <25 Patient has diagnosis of Hyperlipidemia (ICD E78)?: Yes - Visit Date of Assessment:: 05/22/22 Session #:: 0 - Pre-cardiac Rehab evaluation - Cholesterol/Lipids Triglycerides (mg/dL): 52 Total Cholesterol (mg/dL): 81 LDL Cholesterol (mg/dL): 29 HDL Cholesterol (mg/dL): 42 Lipid Medication: ATORVASTATIN Determine presence & major risk factors that modify LDL goal: Hypertension or hypertensive medication, Family history of premature CHD in Male < 55 years: female <65 yearsFa, Age men > 45 years; women >/= 55 years Outcomes/Goals: Pt IDs own risk factors & lifestyle modifications by Session 10, Verbalizes symptoms of angina & response by session 3., Pt independently manages Intervention/Plan: Instruct on personal lipid levels & lipid goals/NCEP guidelines, Instruct on cholesterol Referral to dietitian:: Yes - Diabetes (Other Core Measures) Diabetes Type: Not Applicable - Weight Mgt (Other Care) Not Applicable: Yes Height: 5 ft 7 in Weight:: 142 lb BMI: 22.2 Diagnosis Overweight/Obesity BMI> 30% ICD-10 E66: No Diagnosis High BMI/Morbid Obesity BMI> 35% ICD-10 Z68: No Outcomes/Goals: Pt sets, maintains & shows weight loss goal & trend during rehab Intervention/Plan: Instruct on ideal BMI & set weight loss goal w/patient, Assist pt to ID & incorporate diet changes for weight loss by S9, Encourage goal of using 250-300dcal per session for weight loss - Healthy Eating Habits Will attend diet classes:: Yes Outcomes/Goals:: Consume diet rich in vegs,fruits,whole grain/high fiber,fish,lean meat, Limit sat/trans fats,cholesterol & added salts & sugars Intervention/Plan:: Assess current eating habits - Education Gave educational materials for:: Healthy eating Nutrition - 30-Day Assessment Nutrition - 60-Day Assessment Nutrition - 90-Day Assessment Nutrition - Final Assessment Medical - Initial Assessment - Visit Date of Eval: 05/22/22 Session #:: 0 - Pre-cardiac Rehab evaluation - Medication Compliance Preventative Medication(s):: Aspirin, Clopidogrel/P2Y12 inhibit, Statin/lipid, Beta ancelmo H/O mental health issues: depression, anxiety, or addiction?: Yes Doesn?t believe in the benefits of treatment?: No Believes medications are unnecessary or harmful?: No Has a concern about medication side effects?: No Expresses concern over the cost of medications?: No Outcomes/Goals: Verbalizes medications,desired effect & common side effects @ DC, Pt self-reports following medication regimen, Keeps card in wallet w/medications listed by DC Interventions/plans: Instruct on medication effects & side effects, Review medication list w/patient every two weeks, Instruct importance of taking meds as ordered & assist problem solving - Tobacco Use Tobacco Use: Non-smoker - Hypertension Resting Blood Pressure:: 108/40 [place] [employer] Hypertension Guidelines: [place] [employer] Hypertension Guidelines. Normal BP Less than 120/80. Elevated BP 120/80. Hypertension Stage 1: BP 130-139/80-89. Hypertesnion Stage 2: BP 140 or higher/90 or higher. Hypertension Crisis: BP higher than 180/120 Outcomes/Goals: Able to verbalize/achieve optimal blood pressure <130/80, Incorporates diet changes & exercise for blood pressure control by DC Interventions/plan: Instruct on optimal blood pressure, hypertension & medications, Instruct on effects of sodium, alcohol, stress, exercise &hypertension - Tobacco Cessation Referral Smoking Cessation Referral:: No Individual Education/Counseling:: No Education Schedule Given:: Yes Medical- 30-Day Assessment Medical- 60-Day Assessment Medical- 90-Day Assessment Medical - Final Assessment Psychosocial - Initial Assess - VIsit Date of Eval: 05/22/22 Session #:: 0 - Pre-cardiac Rehab evaluation Not Applicable: No History of previous Mental disease:: Yes History of Emotional Disorders: Depression Self-reported stressors: Medical/Health - Psychosocial Test Tool Used:: Ruthans Jacinto QOL Cardiac, PHQ-9 Questionnaire phq-9 Severity: Severity. 1-4 Minimal Depression. 5-9 Mild Depression. 10-14 Moderate Depression. 15-19 Moderately Sever Depression. 20-27 Severe Depression. Rule: - Referral to Behavioral Health PS - Interventions: Yes Attend Stress Management Classes, No Referral to Behavioral Health if PHQ-9 score >9:, No Referral to [facility], No Referral to Physician if PHQ-9 if score is 5-9: - Outcomes/Goals: See list Psychosocial Outcomes/Goals:: ID's personal stressors & 2 strategies to manage stress by discharge - Intervention/Plan: See List Interventions/Plan:: Assess stressors,coping strategies & signs of derpression on admission, Instruct/assist pt to develop coping & personal stress Mgt strategies, Instruct patient to recognize signs & symptoms of depression, Instruct patient to recog Psychosocial - 30-Day Assess Psychosocial - 60-Day Assess Psychosocial - 90-Day Assess Psychosocial - Final Assessmen Patient Health Questionnaire Initial Assessment 1. Little interest or pleasure in doing things: Nearly every day 2. Feeling down, depressed, or hopeless: Nearly every day 3. Trouble falling or staying asleep, or sleeping too much: Nearly every day 4. Feeling tired or having little energy: Nearly every day 5. Poor appetite or overeating: Nearly every day 6. Feeling bad about yourself -- or that you are a failure or have let yourself or your family down: Nearly every day 7. Trouble concentrating on things, such as reading the newspaper or watching television: Nearly every day 8. Moving or speaking so slowly that other people could have noticed. Or the opposite - being so fidgety or restless that you have been moving around a lot more than usual: Nearly every day 9. Thoughts that you would be better off , or of hurting yourself in some way: Nearly every day How difficult have these problems made it for you to do your work, take care of things at home, or get along with other people?: Extremely difficult Total Score: 27 MARCO A-Q SV Test - Statements CAD is a disease of the arteries in the heart: False Examples of risk factors for heart disease: True Angina is chest pain or discomfort: True The benefits of resistance training include: True Eating more meat and dairy products: False Anti-platelet medications such as aspirin are important: True The only effective way to manage stress: False An exercise warm-up slowly increases heart rate: True Prepared, processed foods usually have high sodium: True Depression is common after a heart attack: True The statin medications lower cholesterol: True To control blood pressure, lower the amount of sodium: True If someone gets chest discomfort during walking: True Transfats are partially hydrogenated vegetable oils: False Sleep apnea that is not treated increases the risk: True To control cholesterol, one should become a vegetarian: I Don't Know Someone knows if he/she is exercising at the right level: True Diabetes cannot be prevented with exercise & health eating: False Stress is a large risk for heart attack: True A diet that can help lower blood pressure is rich in: True - Total Score Total Correct Responses: 16 Self-Efficacy Initial Assessment We would like to know how confident you are in doing certain activities. Please select your confidence level for:: Select your confidence level for the following using the scale 1-10 where 1 is not at all confident and 10 is totally confident. Your score is the average of all 6 responses. Fatigue: How confident are you that you can keep the fatigue caused by your disease from interfering with the things you want to do? Select Number: 3 Physical Discomfort or Pain: How confident are you that you can keep the physical discomfort or pain of your disease from interfering with the things you want to do? Select Number: 4 Emotional Distress: How confident are you that you can keep the emotional distress caused by your disease from interfering with the things you want to do? Select Number: 6 Other Symptoms or Health Problems: How confident are you that you can keep other symptoms or health problems from interfering with the things you want to do? Select Number: 5 Different Tasks and Activities: How confident are you that you can do the different tasks and activities needed to manage your health condition so as to reduce your need to see a doctor? Select Number: 6 Medication: How confident are you that you can do things other than just taking medication to reduce how much your illness affects your everyday life? Select Number: 6 Total Score:: 5 Nutrition Survey - Nutrition Survey Initial Have you lost >10 lbs over the past 2 months without trying?: Yes Are you following a special diet at home for diabetes, low fat, or low salt?: No Are you interested in meeting with a dietitian for help understanding your diet?: Yes Do you eat less than 3 meals a day?: Yes Do you eat fatty meats (anderson, sausage, ribs, etc), fried foods, desserts, large amounts of salad dressings, margarine, butter, or cheese most days?: No Do you have food allergies? [Enter types in comment field]: Yes Do you eat in restaurants more than 3 times a week?: No Do you season food with salt, seasoning salt, or garlic salt?: Yes Do you used canned, boxed, frozen meals, or soups, seasoning packets?: No Total Score:: 5
[2022-05-22 11:27] VITALS: BP 108/60; PULSE 68; RESP 14; TEMP 36.2; O2SAT 96; BMI 22.2
[2022-05-22 12:03] VITALS: BP 108/40; BMI 22.2
== END | disposition home or self-care (01) ==
PROVIDERS: PCP Family Medicine; Referring Provider Internal Medicine Cardiovascular Disease; Visit Provider Internal Medicine Cardiovascular Disease
DX: I12.9 Hypertensive chronic kidney disease with stage 1 through stage 4 chronic kidney disease, or unspecified chronic kidney disease (principal); Z99.2 Dependence on renal dialysis; N18.5 Chronic kidney disease, stage 5; I25.10 Atherosclerotic heart disease of native coronary artery without angina pectoris; Z95.5 Presence of coronary angioplasty implant and graft; Z87.448 Personal history of other diseases of urinary system

== ENCOUNTER → 2022-05-22 | Outpatient (CLI) | payer MEDICARE, OTHER, SELFPAY ==
--- NOTE | 2022-05-22 12:04 | ADUL_ITS ---
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 SFA, prox, 0.57 x 0.58 cm, 59.1 cm/sec. ProfundaV, 0.54 x 0.61 cm, 43.1 cm/sec. CFV and FV are compressible with normal venous flow noted. Nonvascularized mixed echogenicity structure noted in the right groin area that measures 1.33 x 2.67 x 6.65 cm. No AVM or pseudoaneurysm noted. Preliminary to Mariam WILCOX. VL/US Art Duplex Unilat Lower Ext Interpretation Summary Right common femoral artery 0.8 x 0.81 cm diameter with mild atherosclerosis an d normal flow velocity Normal diameter and flow right superficial femoral artery and profunda femoral artery. Patent and compressible right common femoral vein and femoral vein None vascular mixed echogenicity structure overlying the vessels measuring 1.33 x 2.67 x 6.65 cm which historically would be consistent with a hematoma. No evidence for arteriovenous fistula or pseudoaneurysm Ordering Physician: Emerson Real Referring Physician: Jewell Bowens Performed By: Katia Ruvalcaba RVT
== END | disposition home or self-care (01) ==
PROVIDERS: PCP Family Medicine; Referring Provider Internal Medicine Cardiovascular Disease; Visit Provider Internal Medicine Cardiovascular Disease
DX: I25.10 Atherosclerotic heart disease of native coronary artery without angina pectoris (principal); R09.89 Other specified symptoms and signs involving the circulatory and respiratory systems; S75.001A Unspecified injury of femoral artery, right leg, initial encounter; Z95.5 Presence of coronary angioplasty implant and graft
CPT/HCPCS: 93926

== ENCOUNTER → 2022-05-24 | Outpatient (CLI) | payer MEDICARE, OTHER, SELFPAY ==
[2022-05-22 12:03] VITALS: BMI 22.2
== END | disposition home or self-care (01) ==
PROVIDERS: PCP Family Medicine; Referring Provider Internal Medicine Nephrology; Visit Provider Internal Medicine Nephrology
DX: Z01.818 Encounter for other preprocedural examination (principal)
CPT/HCPCS: 36415

== ENCOUNTER 2022-07-31 16:34 | Outpatient (CLI) | payer MEDICARE, OTHER, SELFPAY ==
[2022-05-22 12:03] VITALS: BMI 22.2
== END 2022-07-31 23:59 | disposition home or self-care (01) ==
PROVIDERS: PCP Family Medicine; Referring Provider Internal Medicine Nephrology; Visit Provider Internal Medicine Nephrology
DX: Z00.00 Encounter for general adult medical examination without abnormal findings (principal)
CPT/HCPCS: 36415

== ENCOUNTER 2022-10-10 14:10 | Observation (INO) | payer MEDICARE, OTHER, SELFPAY ==
[2022-05-22 12:03] VITALS: BMI 22.2
[2022-10-10] VITALS (9 sets, daily range): BP systolic 87–117; BP diastolic 41–67; PULSE 66–90; RESP 16–21; TEMP 36.3–36.9; O2SAT 98–100; BMI 34.5; BMI 18.3
--- NOTE | 2022-10-10 14:29 | RAD_ITS ---
EXAM: XR CHEST, 1 VIEW CLINICAL INDICATION: dyspnea TECHNIQUE: Frontal view of the chest. This report was created using [employer] report generation technology. COMPARISON: 04/19/2022. FINDINGS: LUNGS AND PLEURAL SPACES: Unremarkable. No consolidation or edema. No pneumothorax. No effusion. HEART: Unremarkable. Cardiac silhouette not enlarged. MEDIASTINUM: Central airways and mediastinal contour are unremarkable. BONES/JOINTS: Unremarkable. SOFT TISSUES: Surgical clips in the left lower are unchanged. RAD/Chest 1 View (Portable) IMPRESSION: No acute findings in the chest and unchanged when compared to 05/09/2022. Electronically Signed: Hemal Fernandez MD at 15:08 EST ,
--- NOTE | 2022-10-10 14:31 | EX.ED.DYSGE1 ---
HPI History of Present Illness Chief Complaint: Dizziness Detail of Chief Complaint: Generalized weakness's, dizziness, shortness of breath Informant: patient Narrative Narrative: Patient presents to the emergency department from home with her daughter with complaint of generalized weakness and lightheadedness and shortness of breath. Patient states she is not felt well over the last month. Patient had an upper respiratory infection a month ago that she took antibiotics for. Patient also states that she had 2 heart attacks 1 in May and one in June of this year. Patient got 2 cardiac stents. She denies any chest pain. She denies any fever. She denies abdominal pain. Patient does do peritoneal dialysis and did do it last night. Patient tells me she just wants to sleep all the time. She denies blood in her stool or black tarry stool. Patient makes urine and denies dysuria, urgency, or frequency. [facility] Medical History (Updated 10/10/22 @ 16:[address] Ralf Holguin, ) Acute kidney injury superimposed on CKD Ambulates with cane Anemia Anxiety Arterial steal syndrome Arthritis Atherosclerosis of coronary artery of [place] heart without angina pectoris Back pain Chronic renal failure, stage 5 Depression Dietary restriction Discoloration of skin Easy bruising ESRD (end stage renal disease) on dialysis Gastric reflux History of edema History of renal dialysis History of renal disease History of steroid therapy History of stress test Hypertension Peritoneal dialysis catheter in place Post-menopausal Renal calculi Rheumatoid arthritis Seasonal allergies Shortness of breath on exertion Superficial thrombophlebitis of arm Urinary tract infection Vascular dialysis catheter in place Wears glasses Home Medications hydroxyzine HCl 25 mg tablet 50 mg PO QHS PRN Itching 12/17/21 [History Last Taken 05/09/22] magnesium oxide 400 mg PO DAILY supplement 12/17/21 [History Last Taken 05/09/22] mecobalamin (vitamin B12) 1,000 mcg chewable tablet (B12 Active) 2,000 mcg PO DAILY vitamin 12/17/21 [History Last Taken 05/09/22] potassium chloride 20 mEq tablet,extended release(part/cryst) 20 meq PO BID supplement 12/17/21 [History Last Taken 05/09/22] calcitriol 0.5 mcg capsule 1 mcg PO MOWE bone health 01/06/22 [History Last Taken 05/08/22] calcium acetate(phosphat bind) 667 mg capsule 1,334 mg PO TID dialysis 01/06/22 [History Last Taken 05/09/22] ergocalciferol (vitamin D2) 1,250 mcg (50,000 unit) capsule (Vitamin D2) 1,250 mcg PO QWEEK vitamin 01/06/22 [History Last Taken Unknown] sodium bicarbonate 650 mg tablet 1,300 mg PO BID supplement 01/06/22 [History Last Taken 05/09/22] hydrocodone-acetaminophen 5-325mg 5mg-325mg 1 tab PO Q8H PRN PRN Pain 7 days #15 TABLETS 01/09/22 [Rx Last Taken Unknown] oxycodone-acetaminophen 5 mg-325 mg tablet (Percocet) 1 tab PO Q8H PRN pain 3 days #10 tabs 03/06/22 [Rx Last Taken Unknown] prednisone 20 mg tablet 40 mg PO DAILY PRN Radiologic Visualization 03/16/22 [History Last Taken Unknown] paroxetine HCl 20 mg tablet 20 tab PO DAILY depression 05/10/22 [History Last Taken Unknown] aspirin 81 mg tablet,delayed release 81 mg PO BREAKFAST #30 tabs 05/11/22 [Rx Last Taken Unknown] atorvastatin 40 mg tablet 40 mg PO QHS #30 tabs 05/11/22 [Rx Last Taken Unknown] carvedilol 3.125 mg tablet 3.125 mg PO BIDCM #60 tabs 05/11/22 [Rx Last Taken Unknown] clopidogrel 75 mg tablet 75 mg PO DAILY #30 tabs 05/11/22 [Rx Last Taken Unknown] pantoprazole 40 mg tablet,delayed release (Protonix) 40 mg PO DAILY #30 tabs 05/11/22 [Rx Last Taken Unknown] Allergy/AdvReac Type Severity Reaction Status Date / Time adhesive tape Allergy Rash Verified 10/10/22 14:12 amoxicillin [From Augmentin] Allergy Swelling Verified 10/10/22 14:12 srinivasan Allergy Itching Verified 10/10/22 14:12 cephalexin [From Keflex] Allergy Swelling Verified 10/10/22 14:12 clavulanic acid Allergy Swelling Verified 10/10/22 14:12 [From Augmentin] latex Allergy Rash Verified 10/10/22 14:12 Penicillins [PCN] Allergy Swelling Verified 10/10/22 14:12 sulfamethoxazole Allergy rash,swellling, Verified 10/10/22 14:12 [From Bactrim] itching trimethoprim [From Bactrim] Allergy rash,swellling, Verified 10/10/22 14:12 itching walnut Allergy Itching Verified 10/10/22 14:12 Family History Mother Heart disease Diabetes Hypertension Father Dementia Surgical History (Updated 05/10/22 @ 17:39 by Brittney Champion) H/O hernia repair history Left AV Fistula Creation (~05/03/20) History of colonoscopy History of coronary artery stent placement (05/10/22) History of esophagogastroduodenoscopy (EGD) Hx of cystoscopy Hx of cystoscopy S/P bypass gastroenterostomy S/P hemorrhoidectomy Social History (Updated 05/09/22 @ 23:[address] Libby Wick MD) household members: other details: Lives with her daughter. Smoking Status: Never smoker alcohol intake: never substance use type: does not use ROS ROS ED Review of Systems ROS Unobtainable: other Constitutional Constitutional ED: Reports lethargy; Denies chills, fever(s), sweats or weight loss Eyes Eyes: Denies blurry vision, change in vision or diplopia ENT ENT ED: Denies rhinorrhea or sore throat Cardiovascular Cardiovascular: Denies chest pain, orthopnea or racing heartbeat Respiratory/Chest Respiratory/Chest: Reports cough, dyspnea and dyspnea on exertion; Denies orthopnea or sputum Gastrointestinal Gastrointestinal: Denies abdominal pain, diarrhea, nausea or vomiting Genitourinary Genitourinary ED: Denies dysuria, hematuria or urinary frequency Musculoskeletal Musculoskeletal: Denies arthralgias, back pain, myalgias or neck pain Integumentary Denies abscess, Abrasions or rash Neurologic Neurologic: Denies headache(s) or weakness Psychiatric Psychiatric: Denies anxiety, depression or suicidal thoughts Endocrine Endocrinology: Denies polydipsia, polyphagia or polyuria Hematologic/Lymphatic Hematologic/Lymphatic: Denies easy bleeding, easy bruising or lymphadenopathy Allergic/Immunologic Allergic/Immunologic ED: Denies mouth swelling, tongue swelling or urticaria EXAM Physical Exam Const Vital Signs: 10/10/22 14:12 10/10/22 14:54 10/10/22 15:31 Temperature 97.7 F L Temperature Source Temporal Pulse Rate 89 66 Pulse Rate [Lying] Pulse Rate [Sitting (for 1 minute prior to obtaining)] Pulse Rate [Standing (for 1 minute prior to obtaining)] Respiratory Rate 16 18 Respiratory Effort Short of Breath Blood Pressure 88/41 L 114/63 Blood Pressure [Lying] Blood Pressure [Sitting (for 1 minute prior to obtaining)] Blood Pressure [Standing (for 1 minute prior to obtaining)] Blood Pressure Mean 56 80 Blood Pressure Mean [Lying] Blood Pressure Mean [Sitting (for 1 minute prior to obtaining)] Blood Pressure Mean [Standing (for 1 minute prior to obtaining)] Pulse Ox 100 99 Oxygen Delivery Method Room Air 10/10/22 15:16 10/10/22 16:00 Temperature 98 F Temperature Source Temporal Pulse Rate 66 Pulse Rate [Lying] 66 Pulse Rate [Sitting (for 1 minute prior to obtaining)] 77 Pulse Rate [Standing (for 1 minute prior to obtaining)] 90 Respiratory Rate 18 Respiratory Effort Blood Pressure 114/63 Blood Pressure [Lying] 109/57 L Blood Pressure [Sitting (for 1 minute prior to obtaining)] 117/63 Blood Pressure [Standing (for 1 minute prior to obtaining)] 87/57 L Blood Pressure Mean 80 Blood Pressure Mean [Lying] 74 Blood Pressure Mean [Sitting (for 1 minute prior to obtaining)] 81 Blood Pressure Mean [Standing (for 1 minute prior to obtaining)] 67 Pulse Ox 99 Oxygen Delivery Method Positive well nourished and well developed General Appearance ED: well developed and NAD HEENT Reports TM's clear and moist mucous membranes normocephalic and atraumatic; Negative for trauma or tenderness Tympanic Membrane ED: Yes TM's clear Eyes PERRL and EOMs intact bilaterally General Eye ED: Negative for pale conjunctiva or scleral icterus Neck no lymphadenopathy, supple and no JVD General: Negative for tenderness Chest Wall inspection of chest normal and palpation of chest normal Chest: Negative for tenderness Resp normal respiratory effort and clear to auscultation bilaterally Effort and Inspection: Negative for respiratory distress or pain with movement Auscultation: Negative for rhonchi, wheezes or diminished lung sounds Cardio regular rate, regular rhythm, S1 normal heart sound, S2 normal heart sound and no murmurs Peripheral Pulses: pulses 2+ throughout GI normal to inspection, nondistended, normoactive bowel sounds, soft to palpation, non-tender, non-distended and no masses Back/Spine no CVA tenderness and no thoracic nor lumbar tenderness Extremity normal to inspection General Extremety ED: Negative for edema General Extremity: Negative for edema Neuro oriented x3, CN's II-XII intact bilaterally, no sensory deficits noted and gait normal Sensorium / Orientation: awake, alert, oriented to person, oriented to place and oriented to time Motor Exam: strength 5/5 throughout and strength abnormal Psych mental status grossly normal Skin no rashes or lesions noted and no wounds MDM MDM MDM Narrative Medical decision making narrative: Established on arrival. Patient placed on educational psychologist. She was given a 500 cc fluid bolus initially. Blood pressure did improve. Orthostatics performed were positive as her pressure dropped back down into the 80s with standing. She was ordered a liter of fluid bolus. EKG obtained showed a sinus rhythm with nonspecific ST changes and PVCs. Troponin was elevated 144 although she is a peritoneal dialysis patient with chronic renal failure. Her last troponin to compare was from her non-STEMI in April of this year and it was in the 3-4000 range. Chest x-ray obtained was unremarkable. I discussed case with hospitalist who asked that I discussed case with cardiology on-call and I spoke with Dr. Butler as I am concerned her exertional dyspnea may be cardiac related. Family tells me that they think her initial stent clotted with able to treat her medically and she has been compliant with her Plavix. Case will be discussed again with hospitalist to evaluate for admission. Patient has orthostatic hypotension and elevated troponin with chronic renal failure. Patient also with exertional dyspnea. Lab Data Attestation: I reviewed the patient's lab results. Labs: Laboratory Results - last 24 hr 10/10/22 10/10/22 14:50 14:50 WBC 6.7 RBC 3.82 L Hgb 10.8 L Hct 34.2 L MCV 89.5 MCH 28.3 MCHC 31.6 L RDW Std Deviation 43.4 RDW Coeff of [place] 13.3 Plt Count 229 MPV 11.8 Immature Gran % (Auto) 0.400 Neut % (Auto) 67.6 Lymph % (Auto) 23.3 [place] % (Auto) 6.7 Eos % (Auto) 1.3 Baso % (Auto) 0.7 Absolute Neuts (auto) 4.6 Absolute Lymphs (auto) 1.57 Nucleated RBC % 0 Sodium 137 Potassium 3.0 L Chloride 98 Carbon Dioxide 26.0 Anion Gap 13 BUN 43 H Creatinine 6.65 H Estim Creat Clear Calc 7.33 Est GFR (MDRD) Af Amer 8 L Est GFR (MDRD) Non-Af 7 L BUN/Creatinine Ratio 6.5 L Glucose 135 H Calcium 9.3 Total Bilirubin 0.60 AST 47 H ALT 45 Alkaline Phosphatase 90 Troponin I High Sens 144 H* Total Protein 5.5 L Albumin 2.3 L Globulin 3.2 Albumin/Globulin Ratio 0.7 L Radiography Chest X-Ray - ED: 1 View Diagnostic Testing: Clinical Impression(s) from Imaging Studies Chest X-Ray 10/10/22 14:29 IMPRESSION: No acute findings in the chest and unchanged when compared to 05/09/2022. Electronically Signed: Hemal Fernandez MD at 15:08 EST , 1 view chest are obtained interpreted by myself no acute disease process. Radiology in agreement. EKG Initial EKG: Attestation: I personally reviewed and interpreted this EKG as follows: Comments: Sinus rhythm with a ventricular rate of [address] changes and occasional PVCs. Prior EKG tracings: available for review Prior: Unchanged Discharge Plan Triage Chief Complaint: Dizziness ED Provider: Ralf Holguin Dx/Rx/DC Orders Clinical Impression: Orthostatic hypotension, Chronic kidney failure, Exertional dyspnea, Elevated troponin Prescriptions: No Action hydroxyzine HCl 25 mg Tablet 50 mg PO QHS PRN (Reason: Itching) magnesium oxide 400 mg magnesium Tablet 400 mg PO DAILY B12 Active 1,000 mcg Tablet,Chewable 2,000 mcg PO DAILY potassium chloride 20 MEQ tablet,ER particles/crystals 20 meq PO BID sodium bicarbonate 650 mg tablet 1,300 mg PO BID Label Comments: TAKE 2 TABLETS BY MOUTH THREE TIMES DAILY ergocalciferol (vitamin D2) [Vitamin D2] 1,250 mcg (50,000 unit) Capsule 1,250 mcg PO QWEEK calcium acetate(phosphat bind) 667 mg Capsule 1,334 mg PO TID calcitriol 0.5 mcg Capsule 1 mcg PO MOWEFR hydrocodone-acetaminophen 1 TABLET tablet 1 tab PO Q8H PRN PRN (Reason: Pain) 7 Days Qty: 15 0RF oxycodone-acetaminophen [Percocet] 5-325 mg tablet 1 tab PO Q8H PRN (Reason: pain) 3 Days Qty: 10 0RF prednisone 20 mg tablet 40 mg PO DAILY PRN (Reason: Radiologic Visualization) paroxetine HCl 20 mg tablet 20 tab PO DAILY Label Comments: TAKE 1 TABLET BY MOUTH DAILY FOR 7 DAYS then increase to 1&1/2 TABLETS DAILY THEREAFTER atorvastatin 40 mg Tablet 40 mg PO QHS Qty: 30 0RF clopidogrel 75 mg Tablet 75 mg PO DAILY Qty: 30 0RF aspirin 81 mg Tablet,Delayed Release (Dr/Ec) 81 mg PO BREAKFAST Qty: 30 0RF carvedilol 3.125 mg Tablet 3.125 mg PO BIDCM Qty: 60 0RF pantoprazole [Protonix] 40 mg tablet,delayed release (DR/EC) 40 mg PO DAILY Qty: 30 0RF Primary Care Provider: Jewell Bowens Referrals: Jewell Bowens DO [Primary Care Provider] - Disposition Disposition: Acute Care Hospital [facility]
[2022-10-10 15:04] LABS: Absolute Lymphocyte Count 1.57 X10^3/uL (0.83-4.51); Absolute Neutrophil Count 4.6 X10^3/uL (2.0-7.7); Basophil# 0.05 X10^3/uL; Basophil% 0.7 % (0-1); Eosinophil# 0.09 X10^3/uL; Eosinophils% 1.3 % (0-5); Hematocrit 34.2 % (37-47); Hemoglobin 10.8 g/dL (12.0-15.0); Lymphocyte # 1.57 X10^3/ul (0.83-4.51); Lymphocyte % 23.3 % (19-41); Mean Corp Hgb Conc 31.6 g/dL (32-36); Mean Corpuscular Hgb 28.3 pg (27.0-32.0); Mean Corpuscular Volume 89.5 fL (81-99); Mean Platelet Vol. 11.8 fl (6.2-12.0); Monocyte# 0.45 X10^3/uL; Monocyte% 6.7 % (0-10); NRBC Flagged by Analyzer 0 % (0-5); Neutrophil # 4.55 X10^3/uL (2.7-7.7); Neutrophil % 67.6 % (47-70); Platelet Count 229 K/mm3 (150-450); RBC Distribution Width CV 13.3 % (11.6-14.6); RBC Distribution Width SD 43.4 fl (35.1-43.9); Red Blood Count 3.82 M/mm3 (4.2-5.4); White Blood Count 6.7 K/mm3 (4.4-11.0)
[2022-10-10 15:41] LABS: ALB/GLOB Ratio 0.7 RATIO (0.9-2.4); AST(SGOT) 47 U/L (15-37); Alanine Aminotransfer ALT/SGPT 45 U/L (13-56); Albumin, Serum 2.3 g/dL (3.2-5.0); Alkaline Phosphatase 90 U/L (45-117); Anion Gap 13 (5-15); BUN 43 mg/dL (7-18); BUN/Creat Ratio 6.5 RATIO (10-20); Calcium,Total 9.3 mg/dL (8.5-10.1); Chloride 98 mmol/L (98-107); Creatinine, Serum 6.65 mg/dL (0.55-1.02); EST Glomerular Filtration Rate 7 mL/min (>60); Est Glom Filt Rate - Afr Amer 8 mL/min (>60); Estimated Creatinine Clearance 7.33 ml/min; Globulin 3.2 g/dL (2.2-4.2); Glucose 135 mg/dL (74-106); Protein, Total 5.5 g/dL (6.4-8.2); Sodium Level 137 mmol/L (136-145); Troponin-I HS (w/2H Reflex) 144 pg/mL (3.0-54.0)
[2022-10-10 16:13] LABS: Lactic Acid 1.8 mmol/L (0.4-1.9)
[2022-10-10] MEDS: 0.9% Normal Saline 1,000 ML 999 ML IV (16:25)
[2022-10-10 16:58] LABS: Reflex Troponin-HS? (from REC) Y
--- NOTE | 2022-10-10 17:02 | PCM.HP.STD ---
HPI - General General Date of Admission: 10/10/22 HPI Narrative CHRISTIANO AWAD, is a 72 F who presents to the hospital with dizziness and dyspnea with exertion. She recently had a heart attack back in April and the stent reoccluded and had another PCI done however there is no intervention that could be done other than medical management. She has been feeling okay since she had a initial heart attack in terms of shortness of breath because she was doing cardiac rehab as well as physical therapy however in August around , she had a respiratory virus and since then has been short of breath. According to her daughter's been happening progressively over the last month that she has been getting worse. She presented today for dizziness as well as multiple falls. In the ER she was found to have for orthostatic hypotension she states that she has not been eating or drinking very well but she has been doing her peritoneal dialysis with the same glucose percentage solution at 1.5%. In the ER she was started on IV fluids and given her dyspnea on exertion they consulted cardiology who felt that it might be beneficial to bring her in and evaluate her from a cardiac standpoint at this time. Of note her troponin is only 144, back when she had her heart attack it was over 5000 and she does have a creatinine of around 5-6 at baseline so this troponin is not indicative of pathology. [facility] Medical History (Updated 10/10/22 @ 16:[address] Ralf Holguin, ) Acute kidney injury superimposed on CKD Ambulates with cane Anemia Anxiety Arterial steal syndrome Arthritis Atherosclerosis of coronary artery of [place] heart without angina pectoris Back pain Chronic renal failure, stage 5 Depression Dietary restriction Discoloration of skin Easy bruising ESRD (end stage renal disease) on dialysis Gastric reflux History of edema History of renal dialysis History of renal disease History of steroid therapy History of stress test Hypertension Peritoneal dialysis catheter in place Post-menopausal Renal calculi Rheumatoid arthritis Seasonal allergies Shortness of breath on exertion Superficial thrombophlebitis of arm Urinary tract infection Vascular dialysis catheter in place Wears glasses Home Medications magnesium oxide 400 mg PO DAILY supplement 12/17/21 [History Last Taken 05/09/22] mecobalamin (vitamin B12) 1,000 mcg chewable tablet (B12 Active) 2,000 mcg PO DAILY vitamin 12/17/21 [History Last Taken 05/09/22] potassium chloride 20 mEq tablet,extended release(part/cryst) 20 meq PO BID supplement 12/17/21 [History Last Taken 05/09/22] calcitriol 0.5 mcg capsule 1 mcg PO MOWEFR bone health 01/06/22 [History Last Taken 05/08/22] ergocalciferol (vitamin D2) 1,250 mcg (50,000 unit) capsule (Vitamin D2) 1,250 mcg PO QWEEK vitamin 01/06/22 [History Last Taken Unknown] sodium bicarbonate 650 mg tablet 1,300 mg PO BID supplement 01/06/22 [History Last Taken 05/09/22] prednisone 20 mg tablet 40 mg PO DAILY PRN Radiologic Visualization 03/16/22 [History Last Taken Unknown] paroxetine HCl 20 mg tablet 20 tab PO DAILY depression 05/10/22 [History Last Taken Unknown] aspirin 81 mg tablet,delayed release 81 mg PO BREAKFAST heart health 10/10/22 [History Last Taken 10/10/22] atorvastatin 40 mg tablet 40 mg PO QHS cholesterol 10/10/22 [History Last Taken 10/09/22] carvedilol 3.125 mg tablet 3.125 mg PO BIDCM heart 10/10/22 [History Last Taken 10/10/22] clopidogrel 75 mg tablet 75 mg PO DAILY blood thinner 10/10/22 [History Last Taken 10/10/22] pantoprazole 40 mg tablet,delayed release (Protonix) 40 mg PO DAILY PRN GERD 10/10/22 [History Last Taken Unknown] Allergy/AdvReac Type Severity Reaction Status Date / Time adhesive tape Allergy Rash Verified 10/10/22 14:12 amoxicillin [From Augmentin] Allergy Swelling Verified 10/10/22 14:12 srinivasan Allergy Itching Verified 10/10/22 14:12 cephalexin [From Keflex] Allergy Swelling Verified 10/10/22 14:12 clavulanic acid Allergy Swelling Verified 10/10/22 14:12 [From Augmentin] latex Allergy Rash Verified 10/10/22 14:12 Penicillins [PCN] Allergy Swelling Verified 10/10/22 14:12 sulfamethoxazole Allergy rash,swellling, Verified 10/10/22 14:12 [From Bactrim] itching trimethoprim [From Bactrim] Allergy rash,swellling, Verified 10/10/22 14:12 itching walnut Allergy Itching Verified 10/10/22 14:12 Family History Mother Heart disease Diabetes Hypertension Father Dementia Surgical History (Updated 05/10/22 @ 17:39 by Brittney Champion) H/O hernia repair history Left AV Fistula Creation (~05/03/20) History of colonoscopy History of coronary artery stent placement (05/10/22) History of esophagogastroduodenoscopy (EGD) Hx of cystoscopy Hx of cystoscopy S/P bypass gastroenterostomy S/P hemorrhoidectomy Social History (Updated 05/09/22 @ 23:[address] Libby Wick MD) household members: other details: Lives with her daughter. Smoking Status: Never smoker alcohol intake: never substance use type: does not use ROS Constitutional Constitutional: Denies chills, fatigue, fever(s) or malaise Eyes Eyes: Denies blurry vision ENT HEENT: Denies headache(s) or nasal discharge Cardiovascular Cardiovascular: Reports dyspnea on exertion; Denies chest pain or syncope Respiratory/Chest Respiratory/Chest: Denies cough, shortness of breath at rest or shortness of breath with exertion Gastrointestinal Gastrointestinal: Denies constipation, diarrhea, nausea or vomiting Genitourinary Genitourinary: Denies dysuria Neurologic Neurologic: Reports dizziness; Denies focal weakness, numbness or tremor(s) Psychiatric Psychiatric: Denies anxiety or depression Vital Signs Vital Signs Vital Signs: 10/10/22 14:12 10/10/22 14:54 10/10/22 15:31 Temperature 97.7 F L Temperature Source Temporal Pulse Rate 89 66 Pulse Rate [Lying] Pulse Rate [Sitting (for 1 minute prior to obtaining)] Pulse Rate [Standing (for 1 minute prior to obtaining)] Respiratory Rate 16 18 Respiratory Effort Short of Breath Blood Pressure 88/41 L 114/63 Blood Pressure [Lying] Blood Pressure [Sitting (for 1 minute prior to obtaining)] Blood Pressure [Standing (for 1 minute prior to obtaining)] Blood Pressure Mean 56 80 Blood Pressure Mean [Lying] Blood Pressure Mean [Sitting (for 1 minute prior to obtaining)] Blood Pressure Mean [Standing (for 1 minute prior to obtaining)] Pulse Ox 100 99 Oxygen Delivery Method Room Air 10/10/22 15:16 10/10/22 16:00 10/10/22 16:00 Temperature 98 F 98 F Temperature Source Temporal Temporal Pulse Rate 66 69 Pulse Rate [Lying] 66 Pulse Rate [Sitting (for 1 minute prior to obtaining)] 77 Pulse Rate [Standing (for 1 minute prior to obtaining)] 90 Respiratory Rate 18 20 H Respiratory Effort Blood Pressure 114/63 114/62 Blood Pressure [Lying] 109/57 L Blood Pressure [Sitting (for 1 minute prior to obtaining)] 117/63 Blood Pressure [Standing (for 1 minute prior to obtaining)] 87/57 L Blood Pressure Mean 80 79 Blood Pressure Mean [Lying] 74 Blood Pressure Mean [Sitting (for 1 minute prior to obtaining)] 81 Blood Pressure Mean [Standing (for 1 minute prior to obtaining)] 67 Pulse Ox 99 100 Oxygen Delivery Method Room Air 10/10/22 16:00 Temperature Temperature Source Pulse Rate 69 Pulse Rate [Lying] Pulse Rate [Sitting (for 1 minute prior to obtaining)] Pulse Rate [Standing (for 1 minute prior to obtaining)] Respiratory Rate 20 H Respiratory Effort Blood Pressure 114/62 Blood Pressure [Lying] Blood Pressure [Sitting (for 1 minute prior to obtaining)] Blood Pressure [Standing (for 1 minute prior to obtaining)] Blood Pressure Mean 79 Blood Pressure Mean [Lying] Blood Pressure Mean [Sitting (for 1 minute prior to obtaining)] Blood Pressure Mean [Standing (for 1 minute prior to obtaining)] Pulse Ox 100 Oxygen Delivery Method Weight Weight: 220 lb 7.396 oz Body Mass Index (BMI) 34.5 Physical Exam Narrative General: Alert, Oriented x3, Cooperative, No apparent distress HEENT: Atraumatic, PERRLA, EOMI, Normocephalic Oral: Dry mucosa Neck: Supple, No JVD Lungs: Diminished, Normal air movement, No rhonchi, No wheeze, No rales Cardiovascular: Regular rate, Regular Rhythm, Normal S1, Normal S2, No murmurs Abdomen: Soft, Non Tender, Non-Distended, No Hepato-splenomegaly, dialysis port on the left flank Extremities: No edema, Capillary Refill Less than 3 Seconds Skin: No rashes, No breakdown Musculoskeletal: No Tenderness to Palpation of Joints or Extremities Neurological: Cranial nerves II-XII grossly intact, Motor Exam 5/5 strength throughout, Sensory exam intact to light touch and pain Psych/Mental Status: Normal Affect, Appropriate Results Lab / Micro Data Result Diagrams: 10/10/22 14:50 10/10/22 14:50 Labs: Laboratory Results - last 24 hr 10/10/22 14:50: WBC 6.7, RBC 3.82 L, Hgb 10.8 L, Hct 34.2 L, MCV 89.5, MCH 28.3, MCHC 31.6 L, RDW Std Deviation 43.4, RDW Coeff of [place] 13.3, Plt Count 229, MPV 11.8, Immature Gran % (Auto) 0.400, Neut % (Auto) 67.6, Lymph % (Auto) 23.3, [place] % (Auto) 6.7, Eos % (Auto) 1.3, Baso % (Auto) 0.7, Absolute Neuts (auto) 4.6, Absolute Lymphs (auto) 1.57, Nucleated RBC % 0 10/10/22 14:50: Sodium 137, Potassium 3.0 L, Chloride 98, Carbon Dioxide 26.0, Anion Gap 13, BUN 43 H, Creatinine 6.65 H, Estim Creat Clear Calc 7.33, Est GFR (MDRD) Af Amer 8 L, Est GFR (MDRD) Non-Af 7 L, BUN/Creatinine Ratio 6.5 L, Glucose 135 H, Calcium 9.3, Total Bilirubin 0.60, AST 47 H, ALT 45, Alkaline Phosphatase 90, Troponin I High Sens 144 H*, Total Protein 5.5 L, Albumin 2.3 L, Globulin 3.2, Albumin/Globulin Ratio 0.7 L 10/10/22 15:30: Lactic Acid 1.8 Micro: Microbiology 10/10/22 15:03 Nasal Secretion SARS-CoV-2 & FLU Antigen (Rapid) - Final Radiology Impression Chest X-Ray 10/10/22 14:29 IMPRESSION: No acute findings in the chest and unchanged when compared to 05/09/2022. Electronically Signed: Hemal Fernandez MD at 15:08 EST , Assessment & Plan Assessment/Plan (1) Orthostatic hypotension: PLAN: Plan 1. Dizziness secondary to orthostatic hypotension from dehydration ? She had a virus back in August and since then has not been eating or drinking well but is continued her nightly dialysis for 10 hours ? Continue with IV fluids ? We will consult nephrology to direct on peritoneal dialysis 2. Dyspnea on exertion history of CAD status post stent with reocclusion ? She does have a stent in place that was reoccluded, she states that the initial stent was done here and then she went to [facility] during the reocclusion ? Continue with medical management ? We will consult cardiology for work-up and evaluation of the dyspnea on exertion ? In the mid time we will continue with home medications including Coreg, aspirin, Lipitor, Plavix 3. GERD ? Stable ? Continue with PPI 4. Anxiety/depression ? Stable ? Continue with Paxil DVT: SCDs Charges/Coding Visit Charges OBSV E&M: 68177 Initial observation care L2
[2022-10-10] MEDS: 0.9% Normal Saline 1,000 ML 100 ML IV (17:47)
[2022-10-10 18:52] LABS: Troponin-I HS 158 pg/mL (3.0-54.0)
[2022-10-10] MEDS: Atorvastatin Calcium 40 MG Tablet PO (22:35)
[2022-10-11] VITALS (11 sets, daily range): BP systolic 69–113; BP diastolic 47–75; PULSE 64–108; RESP 15–24; TEMP 36.4–36.9; O2SAT 92–99
[2022-10-11] MEDS: Calcium Carbonate 500 MG Tablet 1000 MG PO (00:32)
[2022-10-11 07:24] LABS: Anion Gap 13 (5-15); BUN 45 mg/dL (7-18); BUN/Creat Ratio 7.2 RATIO (10-20); Calcium,Total 8.5 mg/dL (8.5-10.1); Chloride 107 mmol/L (98-107); Creatinine, Serum 6.26 mg/dL (0.55-1.02); EST Glomerular Filtration Rate 7 mL/min (>60); Est Glom Filt Rate - Afr Amer 8 mL/min (>60); Estimated Creatinine Clearance 6.71 ml/min; Glucose 94 mg/dL (74-106); Potassium 2.4 mmol/L (3.5-5.1); Sodium Level 138 mmol/L (136-145)
[2022-10-11] MEDS: Clopidogrel Bisulfate 75 MG Tablet PO (08:16)
[2022-10-11] MEDS: Aspirin E.C. 81 MG Tablet PO (08:16)
[2022-10-11] MEDS: Paroxetine 20 MG Tablet PO (08:16)
[2022-10-11] MEDS: Pantoprazole Sodium 40 MG Tablet PO (08:16)
[2022-10-11] MEDS: Carvedilol 3.125 MG TABLET PO (08:16)
--- NOTE | 2022-10-11 09:10 | ECHOD_ITS ---
Reason For Study: CAD/ASHD Procedure This was a 2D Doppler, Color Flow transthoracic echocardiogram. The exam was of adequate technical quality. Exam performed portable in patient room. Left Ventricle Normal LV size. Left ventricular systolic function is normal. The estimated ejection fraction is 65 %. Diastolic function is indeterminate. No regional wall motion abnormalities noted. Right Ventricle Normal RV size. Normal systolic function. Atria The left atrium is mildly enlarged. Normal right atrium. No doppler evidence for ASD. Mitral Valve There is moderate to severe mitral annular calcification. Extension of the mitral annular calcification onto the base of the posterior mitral valve leaflet. Trivial mitral valve insufficiency. Tricuspid Valve Normal tricuspid valve. Trivial tricuspid valve insufficiency. Unable to estimate RV systolic pressure due to insufficient tricuspid regurgitant envelope. Aortic Valve Trisinus/trileaflet aortic valve. Mild focal aortic valve calcification. Pulmonic Valve The pulmonic valve is not well visualized. Trivial pulmonic valve insufficiency. Great Vessels Normal sized aortic root. Pericardium/Pleural No pericardial effusion. MMode/2D Measurements & Calculations LVIDd: 3.0 cm IVSd: 0.90 cm Ao root diam: 3.4 cm LVIDs: 1.9 cm LVPWd: 0.83 cm RVDd: 3.2 cm FS: 38.3 % LAV(MOD-bp): 56.8 ml LVAd ap4: 25.2 cm2 LVAd ap2: 20.7 cm2 LAV(MOD-bp) Indexed: 35.3 ml/m2 LVLd ap4: 7.2 cm LVLd ap2: 7.3 cm LAV(MOD-sp2): 59.8 ml EDV(MOD-sp4): 71.2 ml EDV(MOD-sp2): 49.7 ml LAV(MOD-sp4): 54.0 ml EDV(sp4-el): 75.0 ml EDV(sp2-el): 49.3 ml LVAs ap4: 13.5 cm2 LVAs ap2: 11.4 cm2 LVLs ap4: 6.1 cm LVLs ap2: 6.1 cm ESV(MOD-sp4): 24.9 ml ESV(MOD-sp2): 19.5 ml ESV(sp4-el): 25.4 ml ESV(sp2-el): 17.9 ml EF(MOD-sp4): 64.9 % EF(MOD-sp2): 60.8 % EF(sp4-el): 66.1 % SV(MOD-sp4): 46.2 ml SV(MOD-sp2): 30.2 ml SV(sp4-el): 49.6 ml LA dimension(2D): 3.3 cm LA A4 area: 18.7 cm2 RA A4 area: 10.7 cm2 Time Measurements MV dec time: 0.25 sec Doppler Measurements & Calculations MV E max gurmeet: 86.0 cm/sec Lat Peak E' Gurmeet: 8.1 cm/sec Med Peak E' Gurmeet: 8.5 cm/sec MV A max gurmeet: 144.3 cm/sec E/E' lat: 10.6 E/E' med: 10.1 MV E/A: 0.60 MV dec slope: 348.2 cm/sec2 Ao V2 max: 162.2 cm/sec LV V1 max: 129.9 cm/sec Ao max P.5 mmHg LV V1 max P.7 mmHg Ao V2 mean: 108.9 cm/sec LV V1 mean P.8 mmHg Ao mean P.5 mmHg LV V1 mean: 91.6 cm/sec Ao V2 VTI: 32.7 cm LV V1 VTI: 20.9 cm AV (velocity ratio): 0.64 PA V2 max: 102.3 cm/sec ECHO/Echo Complete Interpretation Summary Left ventricular systolic function is normal. The estimated ejection fraction is 65 %. The left atrium is mildly enlarged. There is moderate to severe mitral annular calcification. Extension of the mitral annular calcification onto the base of the posterior mi tral valve leaflet. Trivial mitral valve insufficiency. Trivial tricuspid valve insufficiency. Mild focal aortic valve calcification. Trivial pulmonic valve insufficiency. Unable to estimate RV systolic pressure due to insufficient tricuspid regurgita nt envelope. Diastolic function is indeterminate. Ordering Physician: Emerson Real Referring Physician: Jewell Bowens Performed By: Yaneth Jacobo, RDCS, RVT
[2022-10-11 09:14] LABS: Absolute Lymphocyte Count 1.94 X10^3/uL (0.83-4.51); Absolute Neutrophil Count 4.3 X10^3/uL (2.0-7.7); Basophil# 0.04 X10^3/uL; Basophil% 0.6 % (0-1); Eosinophil# 0.15 X10^3/uL; Eosinophils% 2.1 % (0-5); Hematocrit 28.9 % (37-47); Hemoglobin 9.6 g/dL (12.0-15.0); Lymphocyte # 1.94 X10^3/ul (0.83-4.51); Lymphocyte % 27.4 % (19-41); Mean Corp Hgb Conc 33.2 g/dL (32-36); Mean Corpuscular Hgb 29.8 pg (27.0-32.0); Mean Corpuscular Volume 89.8 fL (81-99); Mean Platelet Vol. 11.3 fl (6.2-12.0); Monocyte# 0.59 X10^3/uL; Monocyte% 8.3 % (0-10); NRBC Flagged by Analyzer 0 % (0-5); Neutrophil # 4.34 X10^3/uL (2.7-7.7); Neutrophil % 61.5 % (47-70); Platelet Count 191 K/mm3 (150-450); RBC Distribution Width CV 13.2 % (11.6-14.6); RBC Distribution Width SD 43.4 fl (35.1-43.9); Red Blood Count 3.22 M/mm3 (4.2-5.4); White Blood Count 7.1 K/mm3 (4.4-11.0)
[2022-10-11 09:46] LABS: Troponin-I HS 145 pg/mL (3.0-54.0)
--- NOTE | 2022-10-11 09:49 | PCM.CONS.C ---
Assessment & Plan Assessment/Plan (1) Elevated troponin: PLAN: The patient does have elevated high-sensitivity troponin I levels. They have not demonstrated a significant peak and decline. They are markedly lower than her April 2022 event with her acute coronary syndrome. They may be related to her underlying chronic renal insufficiency on chronic dialysis therapy and represent more of a type II event than a primary acute coronary syndrome type I event. At the present time the patient's cardiac rhythm is being monitored. Her ECG is demonstrated no acute changes. Her previous [facility] cardiovascular records were reviewed. A request will be made for an echocardiogram to reassess her left ventricular wall motion and systolic function. A request will be made to obtain her [facility] cardiovascular records for continuity of care. Depending upon her overall clinical course she may or may not need to be considered for additional noninvasive or invasive studies from a cardiac standpoint. In the interim she will continue medical therapy which does include her aspirin, antiplatelets, beta-blockers, and lipid-lowering agents, etc. (2) Atherosclerosis of coronary artery of [place] heart without angina pectoris: PLAN: The patient has a history of CAD as previously described. She is not presenting with symptoms of classic angina pectoris with respect to chest discomfort at this time. She has been undergoing noninvasive evaluation as noted. She will continue with noninvasive valuation at this time. She will continue medical therapy. (3) History of coronary artery stent placement: PLAN: Her previous [facility] medical records were reviewed. An attempt was made to obtain her [facility] cardiovascular records for review for continuity of care. In the interim she will continue her noninvasive evaluation. (4) Hypertension: QUALIFIERS: Hypertension type: essential hypertension Qualified Code(s): I10 - Essential (primary) hypertension PLAN: The patient's blood pressures were reported as being compatible with orthostatic hypotension. She will need to continue adjustment of her volume status to avoid such findings which may be the etiology for her symptoms. (5) ESRD (end stage renal disease) on dialysis: PLAN: The patient does have end-stage renal disease. She has been followed by nephrology. She will continue evaluation care per nephrology. (6) Anemia: PLAN: The patient has a longstanding history of anemia. This may be related to her chronic renal insufficiency. This will have to be taken into consideration with respect to her symptoms and further evaluation and care. (7) Dizziness: PLAN: The patient does have a history of dizziness. Again this may be secondary to her orthostatic changes. She will continue evaluation care per internal medicine as well as nephrology. (8) Exertional dyspnea: PLAN: The patient has a history of exertional dyspnea. Is unclear whether this is cardiac or noncardiac related. From a cardiac standpoint she will undergo noninvasive valuation as described. (9) Fatigue: PLAN: The patient states she is fatigued. This may be from multiple etiologies with respect to her cardiac and noncardiac conditions. From a cardiac standpoint she will continue her noninvasive valuation at this time. Addt'l Comments The above was discussed and reviewed with the patient. This note was generated using a voice recognition system and there may be incorrect words, spelling or punctuation that were not noted when reviewing the office note prior to saving. HPI Consult Data Date of Consult: 10/11/22 HPI Narrative HPI Narrative: CHRISTIANO AWAD, is a 72 year old white female who presents for cardiovascular consultation based upon concerns of dizziness, shortness of breath with exertion, fatigue, abnormal cardiac enzymes, superimposed upon a history of CAD, non-ST segment elevation [place], PCI, hypertension, end-stage renal disease on chronic peritoneal dialysis, and anemia. The states since her previous [facility] evaluation which occurred in April 2022 at which time she underwent noninvasive and invasive cardiovascular studies as well as subsequent PTCA/JOSEFINA to the mid RCA, she underwent repeat evaluation at [facility] with repeat diagnostic cardiac catheterization. She states that the noted she had progression of her underlying CAD and in-stent restenosis. She states they were unable to perform additional revascularization therapy either through an upper or lower extremity approach. She states she was deemed for continued conservative medical management. She was released home for outpatient follow-up. She notes she returned to [facility] for an outpatient cardiovascular follow-up at which time her medications were adjusted. She does not recall having additional outpatient cardiovascular procedures. Since that time she states she feels that she is dizzy, she feels she becomes more short of breath with exertion, she feels more tired and fatigued. She states she feels as if she may lose consciousness but she has not. She has denied ongoing chest discomfort. There is been no obvious orthopnea or PND or peripheral pitting edema. She continues with her home peritoneal dialysis. Based upon her symptoms she presented to the [facility] for reevaluation. There was concern that she was demonstrating findings compatible with orthostatic hypotension. She had additional cardiac enzymes performed which were abnormal. They have been trended. They have not demonstrated a significant increase/decrease. An ECG was performed which demonstrated sinus rhythm with PVCs with nonspecific ST and T wave abnormality. Her previous [facility] medical records are unavailable for review at this time. [facility] Medical History (Updated 10/11/22 @ 09:[address] Emerson Real MD) Acute kidney injury superimposed on CKD Ambulates with cane Anemia Anxiety Arterial steal syndrome Arthritis Atherosclerosis of coronary artery of [place] heart without angina pectoris Back pain Chronic renal failure, stage 5 Depression Dietary restriction Discoloration of skin Easy bruising ESRD (end stage renal disease) on dialysis Gastric reflux History of edema History of renal dialysis History of renal disease History of steroid therapy History of stress test Hypertension Peritoneal dialysis catheter in place Post-menopausal Renal calculi Rheumatoid arthritis Seasonal allergies Shortness of breath on exertion Superficial thrombophlebitis of arm Urinary tract infection Vascular dialysis catheter in place Wears glasses Home Medications magnesium oxide 400 mg PO DAILY supplement 12/17/21 [History Last Taken 10/10/22] mecobalamin (vitamin B12) 1,000 mcg chewable tablet (B12 Active) 1,000 mcg PO BID vitamin 12/17/21 [History Last Taken 10/10/22] potassium chloride 20 mEq tablet,extended release(part/cryst) 10 meq PO DAILY supplement 12/17/21 [History Last Taken 10/10/22] calcitriol 0.5 mcg capsule 1 mcg PO DAILY bone health 01/06/22 [History Last Taken 10/09/22] ergocalciferol (vitamin D2) 1,250 mcg (50,000 unit) capsule (Vitamin D2) 1,250 mcg PO QWEEK vitamin 01/06/22 [History Last Taken 10/04/22] sodium bicarbonate 650 mg tablet 650 mg PO TID supplement 01/06/22 [History Last Taken 10/10/22] prednisone 20 mg tablet 40 mg PO DAILY PRN Radiologic Visualization 03/16/22 [History Last Taken Unknown] paroxetine HCl 20 mg tablet 20 tab PO DAILY depression 05/10/22 [History Last Taken 10/10/22] aspirin 81 mg tablet,delayed release 81 mg PO BREAKFAST heart health 10/10/22 [History Last Taken 10/10/22] atorvastatin 40 mg tablet 40 mg PO QHS cholesterol 10/10/22 [History Last Taken 10/09/22] carvedilol 3.125 mg tablet 3.125 mg PO BIDCM heart 10/10/22 [History Last Taken 10/10/22] clopidogrel 75 mg tablet 75 mg PO DAILY blood thinner 10/10/22 [History Last Taken 10/10/22] pantoprazole 40 mg tablet,delayed release (Protonix) 40 mg PO DAILY PRN GERD 10/10/22 [History Last Taken Unknown] Allergy/AdvReac Type Severity Reaction Status Date / Time adhesive tape Allergy Rash Verified 10/10/22 14:12 amoxicillin [From Augmentin] Allergy Swelling Verified 10/10/22 14:12 srinivasan Allergy Itching Verified 10/10/22 14:12 cephalexin [From Keflex] Allergy Swelling Verified 10/10/22 14:12 clavulanic acid Allergy Swelling Verified 10/10/22 14:12 [From Augmentin] latex Allergy Rash Verified 10/10/22 14:12 Penicillins [PCN] Allergy Swelling Verified 10/10/22 14:12 sulfamethoxazole Allergy rash,swellling, Verified 10/10/22 14:12 [From Bactrim] itching trimethoprim [From Bactrim] Allergy rash,swellling, Verified 10/10/22 14:12 itching walnut Allergy Itching Verified 10/10/22 14:12 Family History Mother Heart disease Diabetes Hypertension Father Dementia Surgical History H/O hernia repair history Left AV Fistula Creation (~05/03/20) History of colonoscopy History of coronary artery stent placement (05/10/22) History of esophagogastroduodenoscopy (EGD) Hx of cystoscopy Hx of cystoscopy S/P bypass gastroenterostomy S/P hemorrhoidectomy Social History (Updated 05/09/22 @ 23:[address] Libby Wick MD) household members: other details: Lives with her daughter. Smoking Status: Never smoker alcohol intake: never substance use type: does not use ROS Constitutional Constitutional: Reports fatigue and poor appetite Eyes Eyes: Reports as per HPI ENT HEENT: Reports as per HPI Cardiovascular Cardiovascular: Reports dizziness, dyspnea on exertion and fatigue Respiratory/Chest Respiratory/Chest: Reports dyspnea on exertion Gastrointestinal Gastrointestinal: Reports as per HPI Genitourinary Genitourinary: Reports as per HPI Musculoskeletal Musculoskeletal: Reports as per HPI Integumentary Integumentary: Reports as per HPI Neurologic Neurologic: Reports as per HPI Psychiatric Psychiatric: Reports as per HPI Physical Exam Const alert, oriented x3 and no apparent distress Orientation / Consciousness: awake HEENT normocephalic, head/scalp atraumatic and hearing grossly normal bilaterally Eyes PERRL, EOMs intact bilaterally, conjunctivae normal and no scleral icterus Neck full ROM, supple and no JVD Carotids: normal carotid upstroke Resp normal respiratory effort and clear to auscultation bilaterally Cardio regular rate, regular rhythm, S1 normal heart sound and S2 normal heart sound GI normal to inspection, nondistended, normoactive bowel sounds Extremity no pedal edema Skin no rashes or lesions noted Psych mental status grossly normal Risk Stratification Risk Stratification Applicable: Yes Age >/= 65: Yes >/= 3 CAD Risk Factors (HTN, HLD, DM, family hx of CAD, or current smoker): Yes Aspirin Use in the Past 7 Days: Yes Severe Angina (>/= episodes in 24 hours): No EKG ST Changes >/= 0.5mm: No Positive Cardiac Marker: Yes MARI Risk Stratification Score: 4 MARI % Risk: 20% Risk Procedure Criteria Type of Procedure Procedure Type: Elective Elective Risks - COVID COVID Risk Discussion: The surgeon/proceduralist and patient have discussed in detail the risk of exposure to and/or potential harm posed by the COVID-19 virus with having a surgery/procedure at this time versus the risk of delaying the surgery/procedure. It is not possible to know either the risk of delaying the surgery or procedure or chance of getting an infection with perfect accuracy, but a joint decision was made between the patient and the surgeon/proceduralist to proceed at this time with the scheduled surgery/procedure as indicated on the consent form. Objective Data Vital Signs: Vital Signs Temp Pulse Resp BP Pulse Ox O2 Del Method 98.4 F 70 15 113/67 99 Room Air 10/11/22 08:14 10/11/22 08:14 10/11/22 08:14 10/11/22 08:14 10/11/22 08:14 10/11/22 08:14 Oxygen Delivery Method Room Air Weight: 117 lb Body Mass Index (BMI) 18.3 Intake & Output: Intake and Output for Last 24 Hours 10/09/22 10/10/22 10/11/22 23:59 23:59 23:59 Intake Total 1500 / 1500 Balance 1500 / 1500 Lab / Micro Data Result Diagrams: 10/11/22 09:01 10/11/22 06:10 Labs: Laboratory Results - last 24 hr 10/10/22 14:50: WBC 6.7, RBC 3.82 L, Hgb 10.8 L, Hct 34.2 L, MCV 89.5, MCH 28.3, MCHC 31.6 L, RDW Std Deviation 43.4, RDW Coeff of [place] 13.3, Plt Count 229, MPV 11.8, Immature Gran % (Auto) 0.400, Neut % (Auto) 67.6, Lymph % (Auto) 23.3, [place]field % (Auto) 6.7, Eos % (Auto) 1.3, Baso % (Auto) 0.7, Absolute Neuts (auto) 4.6, Absolute Lymphs (auto) 1.57, Nucleated RBC % 0 10/10/22 14:50: Sodium 137, Potassium 3.0 L, Chloride 98, Carbon Dioxide 26.0, Anion Gap 13, BUN 43 H, Creatinine 6.65 H, Estim Creat Clear Calc 7.33, Est GFR (MDRD) Af Amer 8 L, Est GFR (MDRD) Non-Af 7 L, BUN/Creatinine Ratio 6.5 L, Glucose 135 H, Calcium 9.3, Total Bilirubin 0.60, AST 47 H, ALT 45, Alkaline Phosphatase 90, Troponin I High Sens 144 H*, Total Protein 5.5 L, Albumin 2.3 L, Globulin 3.2, Albumin/Globulin Ratio 0.7 L 10/10/22 15:30: Lactic Acid 1.8 10/10/22 17:46: Troponin I High Sens 158 H* 10/11/22 06:10: WBC Cancelled, Corrected WBC Cancelled, RBC Cancelled, Hgb Cancelled, Hct Cancelled, MCV Cancelled, MCH Cancelled, MCHC Cancelled, RDW Std Deviation Cancelled, RDW Coeff of [place] Cancelled, Plt Count Cancelled, MPV Cancelled, Immature Gran % (Auto) Cancelled, Neut % (Auto) Cancelled, Lymph % (Auto) Cancelled, [place] % (Auto) Cancelled, Eos % (Auto) Cancelled, Baso % (Auto) Cancelled, Absolute Neuts (auto) Cancelled, Absolute Lymphs (auto) Cancelled, Total Counted Cancelled, Neutrophils % (Manual) Cancelled, Band Neutrophils % Cancelled, Lymphocytes % (Manual) Cancelled, Monocytes % (Manual) Cancelled, Eosinophils % (Manual) Cancelled, Basophils % (Manual) Cancelled, Metamyelocytes % Cancelled, Myelocytes % Cancelled, Promyelocytes % Cancelled, Blast Cells % Cancelled, Plasma Cell % (Manual) Cancelled, Other Cells % Cancelled, Nucleated RBC % Cancelled, Nucleated RBCs/100 WBC Cancelled, Differential Comment Cancelled, Diff Path Review Cancelled, Hypersegmented Neuts Cancelled, Atypical Lymphocytes Cancelled, Reactive Lymphocytes Cancelled, Smudge Cells Cancelled, Toxic Granulation Cancelled, Toxic Vacuolation Cancelled, Dohle Bodies Cancelled, Sirena Rods Cancelled, Platelet Estimate Cancelled, Plt Morphology Comment Cancelled, RBC Morphology Cancelled, Polychromasia Cancelled, Hypochromasia Cancelled, Poikilocytosis Cancelled, Basophilic Stippling Cancelled, Anisocytosis Cancelled, Microcytosis Cancelled, Macrocytosis Cancelled, Spherocytes Cancelled, Sickle Cells Cancelled, Target Cells Cancelled, Tear Drop Cells Cancelled, Ovalocytes Cancelled, Stomatocytes Cancelled, [place]-Onset Bodies Cancelled, [place] Cells Cancelled, Bite Cells Cancelled, Crenated Cell Cancelled, Acanthocytes (Spur) Cancelled, Rouleaux Cancelled, Schistocytes Cancelled 10/11/22 06:10: Sodium 138, Potassium 2.4 L*, Chloride 107, Carbon Dioxide 18.0 L, Anion Gap 13, BUN 45 H, Creatinine 6.26 H, Estim Creat Clear Calc 6.71, Est GFR (MDRD) Af Amer 8 L, Est GFR (MDRD) Non-Af 7 L, BUN/Creatinine Ratio 7.2 L, Glucose 94, Calcium 8.5 10/11/22 06:10: Troponin I High Sens 145 H* 10/11/22 09:01: WBC 7.1, RBC 3.22 L, Hgb 9.6 L, Hct 28.9 L, MCV 89.8, MCH 29.8, MCHC 33.2 D, RDW Std Deviation 43.4, RDW Coeff of [place] 13.2, Plt Count 191, MPV 11.3, Immature Gran % (Auto) 0.100, Neut % (Auto) 61.5, Lymph % (Auto) 27.4, Garfield % (Auto) 8.3, Eos % (Auto) 2.1, Baso % (Auto) 0.6, Absolute Neuts (auto) 4.3, Absolute Lymphs (auto) 1.94, Nucleated RBC % 0 Micro: Microbiology 10/10/22 15:03 Nasal Secretion SARS-CoV-2 & FLU Antigen (Rapid) - Final Cardiology Labs/Tests 10/10/22 14:50: WBC 6.7, RBC 3.82 L, Hgb 10.8 L, Hct 34.2 L, MCV 89.5, MCH 28.3, MCHC 31.6 L, Plt Count 229, MPV 11.8, Immature Gran % (Auto) 0.400, Neut % (Auto) 67.6, Lymph % (Auto) 23.3, [place] % (Auto) 6.7, Eos % (Auto) 1.3, Baso % (Auto) 0.7, Absolute Neuts (auto) 4.6, Nucleated RBC % 0 10/10/22 14:50: Sodium 137, Potassium 3.0 L, Chloride 98, Carbon Dioxide 26.0, Anion Gap 13, BUN 43 H, Creatinine 6.65 H, Est GFR (MDRD) Af Amer 8 L, Est GFR (MDRD) Non-Af 7 L, BUN/Creatinine Ratio 6.5 L, Glucose 135 H, Calcium 9.3, Total Bilirubin 0.60 10/10/22 15:30: Lactic Acid 1.8 10/11/22 06:10: WBC Cancelled, Corrected WBC Cancelled, RBC Cancelled, Hgb Cancelled, Hct Cancelled, MCV Cancelled, MCH Cancelled, MCHC Cancelled, Plt Count Cancelled, MPV Cancelled, Immature Gran % (Auto) Cancelled, Neut % (Auto) Cancelled, Lymph % (Auto) Cancelled, [place] % (Auto) Cancelled, Eos % (Auto) Cancelled, Baso % (Auto) Cancelled, Absolute Neuts (auto) Cancelled, Total Counted Cancelled, Neutrophils % (Manual) Cancelled, Band Neutrophils % Cancelled, Lymphocytes % (Manual) Cancelled, Monocytes % (Manual) Cancelled, Eosinophils % (Manual) Cancelled, Basophils % (Manual) Cancelled, Metamyelocytes % Cancelled, Myelocytes % Cancelled, Promyelocytes % Cancelled, Blast Cells % Cancelled, Plasma Cell % (Manual) Cancelled, Other Cells % Cancelled, Nucleated RBC % Cancelled 10/11/22 06:10: Sodium 138, Potassium 2.4 L*, Chloride 107, Carbon Dioxide 18.0 L, Anion Gap 13, BUN 45 H, Creatinine 6.26 H, Est GFR (MDRD) Af Amer 8 L, Est GFR (MDRD) Non-Af 7 L, BUN/Creatinine Ratio 7.2 L, Glucose 94, Calcium 8.5 10/11/22 09:01: WBC 7.1, RBC 3.22 L, Hgb 9.6 L, Hct 28.9 L, MCV 89.8, MCH 29.8, MCHC 33.2 D, Plt Count 191, MPV 11.3, Immature Gran % (Auto) 0.100, Neut % (Auto) 61.5, Lymph % (Auto) 27.4, [place] % (Auto) 8.3, Eos % (Auto) 2.1, Baso % (Auto) 0.6, Absolute Neuts (auto) 4.3, Nucleated RBC % 0 Rhythm: Sinus rhythm EKG: As noted ECHO: 05-09-2022 Interpretation Summary The study was technically difficult. ? Segmental dysfunction with preserved ejection fraction (see wall motion). The estimated ejection fraction is 55 %. Sigmoid septum. There is moderate to severe mitral annular calcification. Extension of the mitral annular calcification onto the base of the posterior mitral valve leaflet. Trivial mitral valve insufficiency. Trivial tricuspid valve insufficiency. Mild diffuse aortic valve thickening. Trivial aortic valve insufficiency. Unable to estimate RV systolic pressure/pulmonary artery pressure due to technically difficult study. Diastolic function is indeterminate. Cardiac Cath: 05-10-2022 CONCLUSIONS Normal Left Ventricular End Diastolic Pressure [place] Multivessel CAD RECOMMENDATIONS Risk factor modification Medical therapy Referred for immediate PCI Case discussed / reviewed with Dr. Vital of Interventional Cardiology DESCRIPTION OF? PROCEDURE The patient arrived to the procedure lab. The risks and benefits of the procedure as well as a full description of our services here and current unavailability of surgical backup were fully explained to the patient and/or their significant other prior to the catheterization. The Timeout was completed, verifying the correct patient and procedure. The patient's procedural site was prepped and draped in the usual fashion. Local anesthetic was given subcutaneously to right radial region with Lidocaine 2%. Using a modified Seldinger technique, arterial access was obtained via the right radial artery, a 6Fr sheath was inserted., arterial access was obtained via the right femoral artery, a 4Fr sheath was inserted? Left Coronary Artery selective angiography was performed in multiple views using a 4 Fr. JL5 catheter. Right Coronary Artery selective angiography was then performed in multiple views using a 4 Fr. JR4 catheter. LV to AO pullback pressures were then recorded.Contrast was injected through the sheath and the Right Iliac and Femoral artery were assessed for possible closure device. CORONARY ANGIOGRAPHY LEFT HEART ASSESSMENT Left Ventricular Ejection Fraction: Not assessed Normal Left Ventricular End Diastolic Pressure LVEDP: 11 mmHg LEFT MAIN: Mild calcification LEFT ANTERIOR DESCENDING ARTERY: PROX LAD: Mild calcification, Mild luminal irregularities, 25 - 50 % Stenosis MID LAD: ectatic area, Mild luminal irregularities CIRCUMFLEX ARTERY: MID CIRC: Mild calcification, Mild luminal irregularities RIGHT CORONARY ARTERY: PROX RCA: Moderate calcification, Mild luminal irregularities MID RCA: appearing c/w thrombus: 95 % Stenosis PCI: 05-10-2022 CONCLUSIONS Successful JOSEFINA to mRCA RECOMMENDATIONS DESCRIPTION OF? PROCEDURE The patient arrived to the procedure lab. The risks and benefits of the procedure as well as a full description of our services here and current unavailability of surgical backup were fully explained to the patient and/or their significant other prior to the catheterization. The Timeout was completed, verifying the correct patient and procedure. The patient's procedural site was prepped and draped in the usual fashion. Local anesthetic was given subcutaneously to right radial region with Lidocaine 2% Using a modified Seldinger technique,arterial access was obtained via the right radial artery, a 6Fr sheath was inserted., arterial access was obtained via the right femoral artery, a 4Fr sheath was inserted Left Coronary Artery selective angiography was performed in multiple views using a 4 Fr. JL5 catheter. Right Coronary Artery selective angiography was then performed in multiple views using a 4 Fr. JR4 catheter. LV to AO pullback pressures were then recorded.The images were reviewed and options discussed. A decision was then made to proceed with an Intervention, IVUS or other adjunct procedure. ? ? Arterial sheath was exchanged for a 6 Fr Sheath. jr 4 Guide catheter was inserted and engaged into the RCA. bmw Guide wire was advanced to the RCA. emerge 2.5 x 12 Balloon catheter was advanced across lesion in the right coronary, mid. PTCA balloon inflated at 6 atms for 25 secs. PTCA balloon inflated at 6 atms for 10 secs. PTCA balloon inflated at 6 atms for 8 secs. Angiogram performed post balloon dilatation. PTCA balloon inflated at 8 atms for 10 secs. PTCA balloon inflated at 6 atms for 8 secs. PTCA balloon inflated at 8 atms for 16 secs. PTCA balloon inflated at 8 atms for 14 secs. PTCA balloon inflated at 10 atms for 15 secs. Angiogram performed post balloon dilatation. nc emerge 2.5 x 30 Balloon catheter was advanced across lesion in the right coronary, mid. PTCA balloon inflated at 6 atms for 30 secs. PTCA balloon inflated at 16 atms for 24 secs. osiro 2.5 x 40 Drug Eluting stent was advanced across the lesion in the right coronary, mid. Angiogram performed post stent deployment. nc euphora 2.5 x 12 Balloon catheter was inserted post stent. Angiogram performed post balloon dilatation. Contrast was injected through the sheath and the Right Iliac and Femoral artery were assessed for possible closure device.? INTERVENTION INFORMATION LESION SITE: RCA (Mid) Lesion Complexity: High/C, chronic total occlusion: No, lesion at bifurcation: No, thrombus present: No, lesion length: 38 mm, culprit lesion: Yes, Previously treated lesion: No ?Pre Stenosis: 95 % Pre intervention MARI flow: 3 PROCEDURE: Drug Eluting Stent with pre and post dilatation Post Stenosis: 0 %? Post intervention MARI flow: 3 Lesion Devices: Rivas Sci EMERGE MR 2.50x12 BALLOON Rivas Sci NC EMERGE MR 2.50x30 BALLOON [employer] 6 Bengali [employer]ronik Orsiro Lyerly MR JOSEFINA 2.5x40 [employer] NC EUPHORA RX 2.5x12 BALLOON Radiography Diagnostic Testing: Radiology Impression Chest X-Ray 10/10/22 14:29 IMPRESSION: No acute findings in the chest and unchanged when compared to 05/09/2022. Electronically Signed: Hemal Fernandez MD at 15:08 EST ,
[2022-10-11 10:39] LABS: Mucous, Urine 0 SEEN /hpf (<or=2+)
[2022-10-11 10:40] LABS: Color, Urine Yellow (Yellow); Glucose, Dipstick Normal (Normal); Ketone-Dipstick Negative (Negative); Leukocyte Esterase-Dipstick 500 /ul (Negative); Nitrite-Dipstick Negative (Negative); Occult Blood-Urine 25 /ul (Negative); Protein-Dipstick 30 mg/dl (Negative); Urine Bilirubin Dipstick Negative (Negative); Urine Clarity Sl. Cloudy (Clear); Urine Urobilinogen Normal (Normal)
[2022-10-11 10:48] LABS: Bacteria 1+ /hpf (None Seen); Red Blood Cells-Urine 0-5 SEEN /hpf (0-5); Squamous Epithelial Cells - UA 0-5 SEEN /hpf (5-10); White Blood Cells 25-50 SEEN /hpf (0-5)
--- NOTE | 2022-10-11 11:32 | PCM.CONS.R ---
Assessment & Plan Assessment/Plan (1) ESRD (end stage renal disease) on dialysis: (2) Orthostatic hypotension: (3) Anemia: PLAN: Plan We will continue to provide peritoneal dialysis support for Josie. Plan for peritoneal dialysis tonight per her outpatient chronic dialysis orders. We will use all 1.5% dianeal as patient appears near euvolemic to hypovolemic. Patient is on IVF but will reduce rate. Reviewed CXR no acute findings or fluid, she is on room air, she does have some urine output. Patient is ill-appearing and likely has lost weight (her dry weight was 57.5kg) therefore dry weight needs to be lowered. Potassium is low, replacement has been ordered. She does not need renal diet restrictions. Blood cultures were drawn and pending. Patient has a history of anemia of chronic disease we will continue monitor hemoglobin trends. Dietitian consulted as patient does not have an appetite with weight loss. Cardiology consulted, workup in progress. Further orders forthcoming as hospitalization evolves. Thank you for allowing us to participate in the care of Ms. Dumont. HPI Consult Data Date of Consult: 10/11/22 HPI Narrative HPI Narrative: JOSIE DUMONT, is a 72 F with past medical history significant for ESRD on peritoneal dialysis support, coronary disease status post PCI, history of gastric bypass surgery, anemia of chronic disease who presents emergency room with complaints of feeling unwell. Patient has been experiencing dizziness, congestion, dyspnea with exertion for at least the past month. Patient denies any recent fevers. Patient reports compliancy with her peritoneal dialysis, she does PD nightly. Patient denies any recent abdominal pain. Reports PD fluid has been clear. Denies any abdominal cramping. Reports PD catheter without any redness, drainage or swelling. Patient was noted to be orthostatic positive and was admitted for further evaluation and treatment. We were consulted for dialysis management. [facility] Medical History (Updated 10/11/22 @ 09:[address] Emerson Real MD) Acute kidney injury superimposed on CKD Ambulates with cane Anemia Anxiety Arterial steal syndrome Arthritis Atherosclerosis of coronary artery of telida heart without angina pectoris Back pain Chronic renal failure, stage 5 Depression Dietary restriction Discoloration of skin Easy bruising ESRD (end stage renal disease) on dialysis Gastric reflux History of edema History of renal dialysis History of renal disease History of steroid therapy History of stress test Hypertension Peritoneal dialysis catheter in place Post-menopausal Renal calculi Rheumatoid arthritis Seasonal allergies Shortness of breath on exertion Superficial thrombophlebitis of arm Urinary tract infection Vascular dialysis catheter in place Wears glasses Home Medications magnesium oxide 400 mg PO DAILY supplement 12/17/21 [History Last Taken 10/10/22] mecobalamin (vitamin B12) 1,000 mcg chewable tablet (B12 Active) 1,000 mcg PO BID vitamin 12/17/21 [History Last Taken 10/10/22] potassium chloride 20 mEq tablet,extended release(part/cryst) 10 meq PO DAILY supplement 12/17/21 [History Last Taken 10/10/22] calcitriol 0.5 mcg capsule 1 mcg PO DAILY bone health 01/06/22 [History Last Taken 10/09/22] ergocalciferol (vitamin D2) 1,250 mcg (50,000 unit) capsule (Vitamin D2) 1,250 mcg PO QWEEK vitamin 01/06/22 [History Last Taken 10/04/22] sodium bicarbonate 650 mg tablet 650 mg PO TID supplement 01/06/22 [History Last Taken 10/10/22] prednisone 20 mg tablet 40 mg PO DAILY PRN Radiologic Visualization 03/16/22 [History Last Taken Unknown] paroxetine HCl 20 mg tablet 20 tab PO DAILY depression 05/10/22 [History Last Taken 10/10/22] aspirin 81 mg tablet,delayed release 81 mg PO BREAKFAST heart health 10/10/22 [History Last Taken 10/10/22] atorvastatin 40 mg tablet 40 mg PO QHS cholesterol 10/10/22 [History Last Taken 10/09/22] carvedilol 3.125 mg tablet 3.125 mg PO BIDCM heart 10/10/22 [History Last Taken 10/10/22] clopidogrel 75 mg tablet 75 mg PO DAILY blood thinner 10/10/22 [History Last Taken 10/10/22] pantoprazole 40 mg tablet,delayed release (Protonix) 40 mg PO DAILY PRN GERD 10/10/22 [History Last Taken Unknown] Allergy/AdvReac Type Severity Reaction Status Date / Time adhesive tape Allergy Rash Verified 10/10/22 14:12 amoxicillin [From Augmentin] Allergy Swelling Verified 10/10/22 14:12 srinivasan Allergy Itching Verified 10/10/22 14:12 cephalexin [From Keflex] Allergy Swelling Verified 10/10/22 14:12 clavulanic acid Allergy Swelling Verified 10/10/22 14:12 [From Augmentin] latex Allergy Rash Verified 10/10/22 14:12 Penicillins [PCN] Allergy Swelling Verified 10/10/22 14:12 sulfamethoxazole Allergy rash,swellling, Verified 10/10/22 14:12 [From Bactrim] itching trimethoprim [From Bactrim] Allergy rash,swellling, Verified 10/10/22 14:12 itching walnut Allergy Itching Verified 10/10/22 14:12 Family History Mother Heart disease Diabetes Hypertension Father Dementia Surgical History H/O hernia repair history Left AV Fistula Creation (~05/03/20) History of colonoscopy History of coronary artery stent placement (05/10/22) History of esophagogastroduodenoscopy (EGD) Hx of cystoscopy Hx of cystoscopy S/P bypass gastroenterostomy S/P hemorrhoidectomy Social History (Updated 05/09/22 @ 23:[address] Libby Wick MD) household members: other details: Lives with her daughter. Smoking Status: Never smoker alcohol intake: never substance use type: does not use ROS ROS Narrative As in HPI and past medical history Physical Exam Narrative Const: Alert and oriented x3, no apparent distress. Ill-appearing Cardio: S1, S2, RRR Respiratory: Lung sounds clear anteriorly and posteriorly, no wheezes, rhonchi, or rales noted Abdomen: Soft, nontender, PD catheter with dressing clean dry and intact Extremities: No edema Lab / Micro Data Result Diagrams: 10/11/22 09:01 10/11/22 06:10 Labs: Laboratory Results - last 24 hr 10/10/22 10:30: Urine Color Yellow, Urine Clarity Sl. Cloudy, Urine pH 7.0, Ur Specific [place] 1.010, Urine Protein 30 H, Urine Glucose (UA) Normal, Urine Ketones Negative, Urine Occult Blood 25 H, Urine Nitrite Negative, Urine Bilirubin Negative, Urine Urobilinogen Normal, Ur Leukocyte Esterase 500 H, Urine RBC 0-5 SEEN, Urine WBC 25-50 SEEN, Ur Squamous Epith Cells 0-5 SEEN, Urine Bacteria 1+, Urine Mucus 0 SEEN 10/10/22 14:50: WBC 6.7, RBC 3.82 L, Hgb 10.8 L, Hct 34.2 L, MCV 89.5, MCH 28.3, MCHC 31.6 L, RDW Std Deviation 43.4, RDW Coeff of [place] 13.3, Plt Count 229, MPV 11.8, Immature Gran % (Auto) 0.400, Neut % (Auto) 67.6, Lymph % (Auto) 23.3, Kidder % (Auto) 6.7, Eos % (Auto) 1.3, Baso % (Auto) 0.7, Absolute Neuts (auto) 4.6, Absolute Lymphs (auto) 1.57, Nucleated RBC % 0 10/10/22 14:50: Sodium 137, Potassium 3.0 L, Chloride 98, Carbon Dioxide 26.0, Anion Gap 13, BUN 43 H, Creatinine 6.65 H, Estim Creat Clear Calc 7.33, Est GFR (MDRD) Af Amer 8 L, Est GFR (MDRD) Non-Af 7 L, BUN/Creatinine Ratio 6.5 L, Glucose 135 H, Calcium 9.3, Total Bilirubin 0.60, AST 47 H, ALT 45, Alkaline Phosphatase 90, Troponin I High Sens 144 H*, Total Protein 5.5 L, Albumin 2.3 L, Globulin 3.2, Albumin/Globulin Ratio 0.7 L 10/10/22 15:30: Lactic Acid 1.8 10/10/22 17:46: Troponin I High Sens 158 H* 10/11/22 06:10: WBC Cancelled, Corrected WBC Cancelled, RBC Cancelled, Hgb Cancelled, Hct Cancelled, MCV Cancelled, MCH Cancelled, MCHC Cancelled, RDW Std Deviation Cancelled, RDW Coeff of [place] Cancelled, Plt Count Cancelled, MPV Cancelled, Immature Gran % (Auto) Cancelled, Neut % (Auto) Cancelled, Lymph % (Auto) Cancelled, Kidder % (Auto) Cancelled, Eos % (Auto) Cancelled, Baso % (Auto) Cancelled, Absolute Neuts (auto) Cancelled, Absolute Lymphs (auto) Cancelled, Total Counted Cancelled, Neutrophils % (Manual) Cancelled, Band Neutrophils % Cancelled, Lymphocytes % (Manual) Cancelled, Monocytes % (Manual) Cancelled, Eosinophils % (Manual) Cancelled, Basophils % (Manual) Cancelled, Metamyelocytes % Cancelled, Myelocytes % Cancelled, Promyelocytes % Cancelled, Blast Cells % Cancelled, Plasma Cell % (Manual) Cancelled, Other Cells % Cancelled, Nucleated RBC % Cancelled, Nucleated RBCs/100 WBC Cancelled, Differential Comment Cancelled, Diff Path Review Cancelled, Hypersegmented Neuts Cancelled, Atypical Lymphocytes Cancelled, Reactive Lymphocytes Cancelled, Smudge Cells Cancelled, Toxic Granulation Cancelled, Toxic Vacuolation Cancelled, Dohle Bodies Cancelled, Sirena Rods Cancelled, Platelet Estimate Cancelled, Plt Morphology Comment Cancelled, RBC Morphology Cancelled, Polychromasia Cancelled, Hypochromasia Cancelled, Poikilocytosis Cancelled, Basophilic Stippling Cancelled, Anisocytosis Cancelled, Microcytosis Cancelled, Macrocytosis Cancelled, Spherocytes Cancelled, Sickle Cells Cancelled, Target Cells Cancelled, Tear Drop Cells Cancelled, Ovalocytes Cancelled, Stomatocytes Cancelled, [place] Bodies Cancelled, [place] Cells Cancelled, Bite Cells Cancelled, Crenated Cell Cancelled, Acanthocytes (Spur) Cancelled, Rouleaux Cancelled, Schistocytes Cancelled 10/11/22 06:10: Sodium 138, Potassium 2.4 L*, Chloride 107, Carbon Dioxide 18.0 L, Anion Gap 13, BUN 45 H, Creatinine 6.26 H, Estim Creat Clear Calc 6.71, Est GFR (MDRD) Af Amer 8 L, Est GFR (MDRD) Non-Af 7 L, BUN/Creatinine Ratio 7.2 L, Glucose 94, Calcium 8.5 10/11/22 06:10: Troponin I High Sens 145 H* 10/11/22 09:01: WBC 7.1, RBC 3.22 L, Hgb 9.6 L, Hct 28.9 L, MCV 89.8, MCH 29.8, MCHC 33.2 D, RDW Std Deviation 43.4, RDW Coeff of [place] 13.2, Plt Count 191, MPV 11.3, Immature Gran % (Auto) 0.100, Neut % (Auto) 61.5, Lymph % (Auto) 27.4, Kidder % (Auto) 8.3, Eos % (Auto) 2.1, Baso % (Auto) 0.6, Absolute Neuts (auto) 4.3, Absolute Lymphs (auto) 1.94, Nucleated RBC % 0 Micro: Microbiology 10/10/22 15:03 Nasal Secretion SARS-CoV-2 & FLU Antigen (Rapid) - Final Radiology Impression Chest X-Ray 10/10/22 14:29 IMPRESSION: No acute findings in the chest and unchanged when compared to 05/09/2022. Electronically Signed: Hemal Fernandez MD at 15:08 EST ,
[2022-10-11] MEDS: Potassium Chloride Oral Tablet 20 MEQ 60 MEQ PO (12:04)
[2022-10-11] MEDS: 0.9% Normal Saline 1,000 ML 100 ML IV (12:08)
--- NOTE | 2022-10-11 14:39 | PCM.PN.HOSP ---
Subjective Subjective Feeling better than when she came in yesterday. Continue with IV hydration. Troponins are unremarkable and echo is pending Objective Data Objective Data Vital Signs: Vital Signs Temp Pulse Resp BP Pulse Ox O2 Del Method 98.4 F 71 15 103/59 L 99 Room Air 10/11/22 08:14 10/11/22 11:32 10/11/22 08:14 10/11/22 11:32 10/11/22 08:14 10/11/22 08:14 Oxygen Delivery Method Room Air Weight: 117 lb Body Mass Index (BMI) 18.3 Intake & Output: Intake and Output for Last 24 Hours 10/10/22 10/11/22 10/12/22 03:59 03:59 03:59 Intake Total 2500 / 2500 70 / 70 Output Total 200 / 200 Balance 2500 / 2500 -130 / -130 Lab / Micro Data Result Diagrams: 10/11/22 09:01 10/11/22 06:10 Labs: Laboratory Results - last 24 hr 10/10/22 10:30: Urine Color Yellow, Urine Clarity Sl. Cloudy, Urine pH 7.0, Ur Specific [place] 1.010, Urine Protein 30 H, Urine Glucose (UA) Normal, Urine Ketones Negative, Urine Occult Blood 25 H, Urine Nitrite Negative, Urine Bilirubin Negative, Urine Urobilinogen Normal, Ur Leukocyte Esterase 500 H, Urine RBC 0-5 SEEN, Urine WBC 25-50 SEEN, Ur Squamous Epith Cells 0-5 SEEN, Urine Bacteria 1+, Urine Mucus 0 SEEN 10/10/22 14:50: WBC 6.7, RBC 3.82 L, Hgb 10.8 L, Hct 34.2 L, MCV 89.5, MCH 28.3, MCHC 31.6 L, RDW Std Deviation 43.4, RDW Coeff of [place] 13.3, Plt Count 229, MPV 11.8, Immature Gran % (Auto) 0.400, Neut % (Auto) 67.6, Lymph % (Auto) 23.3, Bureau % (Auto) 6.7, Eos % (Auto) 1.3, Baso % (Auto) 0.7, Absolute Neuts (auto) 4.6, Absolute Lymphs (auto) 1.57, Nucleated RBC % 0 10/10/22 14:50: Sodium 137, Potassium 3.0 L, Chloride 98, Carbon Dioxide 26.0, Anion Gap 13, BUN 43 H, Creatinine 6.65 H, Estim Creat Clear Calc 7.33, Est GFR (MDRD) Af Amer 8 L, Est GFR (MDRD) Non-Af 7 L, BUN/Creatinine Ratio 6.5 L, Glucose 135 H, Calcium 9.3, Total Bilirubin 0.60, AST 47 H, ALT 45, Alkaline Phosphatase 90, Troponin I High Sens 144 H*, Total Protein 5.5 L, Albumin 2.3 L, Globulin 3.2, Albumin/Globulin Ratio 0.7 L 10/10/22 15:30: Lactic Acid 1.8 10/10/22 17:46: Troponin I High Sens 158 H* 10/11/22 06:10: WBC Cancelled, Corrected WBC Cancelled, RBC Cancelled, Hgb Cancelled, Hct Cancelled, MCV Cancelled, MCH Cancelled, MCHC Cancelled, RDW Std Deviation Cancelled, RDW Coeff of [place] Cancelled, Plt Count Cancelled, MPV Cancelled, Immature Gran % (Auto) Cancelled, Neut % (Auto) Cancelled, Lymph % (Auto) Cancelled, Bureau % (Auto) Cancelled, Eos % (Auto) Cancelled, Baso % (Auto) Cancelled, Absolute Neuts (auto) Cancelled, Absolute Lymphs (auto) Cancelled, Total Counted Cancelled, Neutrophils % (Manual) Cancelled, Band Neutrophils % Cancelled, Lymphocytes % (Manual) Cancelled, Monocytes % (Manual) Cancelled, Eosinophils % (Manual) Cancelled, Basophils % (Manual) Cancelled, Metamyelocytes % Cancelled, Myelocytes % Cancelled, Promyelocytes % Cancelled, Blast Cells % Cancelled, Plasma Cell % (Manual) Cancelled, Other Cells % Cancelled, Nucleated RBC % Cancelled, Nucleated RBCs/100 WBC Cancelled, Differential Comment Cancelled, Diff Path Review Cancelled, Hypersegmented Neuts Cancelled, Atypical Lymphocytes Cancelled, Reactive Lymphocytes Cancelled, Smudge Cells Cancelled, Toxic Granulation Cancelled, Toxic Vacuolation Cancelled, Dohle Bodies Cancelled, Sirena Rods Cancelled, Platelet Estimate Cancelled, Plt Morphology Comment Cancelled, RBC Morphology Cancelled, Polychromasia Cancelled, Hypochromasia Cancelled, Poikilocytosis Cancelled, Basophilic Stippling Cancelled, Anisocytosis Cancelled, Microcytosis Cancelled, Macrocytosis Cancelled, Spherocytes Cancelled, Sickle Cells Cancelled, Target Cells Cancelled, Tear Drop Cells Cancelled, Ovalocytes Cancelled, Stomatocytes Cancelled, [place] Bodies Cancelled, [place] Cells Cancelled, Bite Cells Cancelled, Crenated Cell Cancelled, Acanthocytes (Spur) Cancelled, Rouleaux Cancelled, Schistocytes Cancelled 10/11/22 06:10: Sodium 138, Potassium 2.4 L*, Chloride 107, Carbon Dioxide 18.0 L, Anion Gap 13, BUN 45 H, Creatinine 6.26 H, Estim Creat Clear Calc 6.71, Est GFR (MDRD) Af Amer 8 L, Est GFR (MDRD) Non-Af 7 L, BUN/Creatinine Ratio 7.2 L, Glucose 94, Calcium 8.5 10/11/22 06:10: Troponin I High Sens 145 H* 10/11/22 09:01: WBC 7.1, RBC 3.22 L, Hgb 9.6 L, Hct 28.9 L, MCV 89.8, MCH 29.8, MCHC 33.2 D, RDW Std Deviation 43.4, RDW Coeff of [place] 13.2, Plt Count 191, MPV 11.3, Immature Gran % (Auto) 0.100, Neut % (Auto) 61.5, Lymph % (Auto) 27.4, Bureau % (Auto) 8.3, Eos % (Auto) 2.1, Baso % (Auto) 0.6, Absolute Neuts (auto) 4.3, Absolute Lymphs (auto) 1.94, Nucleated RBC % 0 Micro: Microbiology 10/10/22 15:03 Nasal Secretion SARS-CoV-2 & FLU Antigen (Rapid) - Final Radiography Diagnostic Testing: Radiology Impression Chest X-Ray 10/10/22 14:29 IMPRESSION: No acute findings in the chest and unchanged when compared to 05/09/2022. Electronically Signed: Hemal Fernandez MD at 15:08 EST , Physical Exam Narrative General: Alert, Oriented x3, Cooperative, No apparent distress HEENT: Atraumatic, PERRLA, EOMI, Normocephalic Oral: Dry mucosa Neck: Supple, No JVD Lungs: Diminished, Normal air movement, No rhonchi, No wheeze, No rales Cardiovascular: Regular rate, Regular Rhythm, Normal S1, Normal S2, No murmurs Abdomen: Soft, Non Tender, Non-Distended, No Hepato-splenomegaly, dialysis port on the left flank Extremities: No edema, Capillary Refill Less than 3 Seconds Skin: No rashes, No breakdown Musculoskeletal: No Tenderness to Palpation of Joints or Extremities Neurological: Cranial nerves II-XII grossly intact, Motor Exam 5/5 strength throughout, Sensory exam intact to light touch and pain Psych/Mental Status: Normal Affect, Appropriate Assessment & Plan Assessment/Plan (1) Orthostatic hypotension: PLAN: Plan 1. Dizziness secondary to orthostatic hypotension from dehydration ? She had a virus back in August and since then has not been eating or drinking well but has continued her nightly dialysis for 10 hours ? Continue with IV fluids ? Will replace potassium and check a mag and Phos ? We will consult nephrology to direct on peritoneal dialysis ? She still remains orthostatic but feeling better 2. Dyspnea on exertion history of CAD status post stent with reocclusion ? She does have a stent in place that was reoccluded, she states that the initial stent was done here and then she went to [facility] during the reocclusion ? Continue with medical management ? We will consult cardiology for work-up and evaluation of the dyspnea on exertion, echo is pending ? We will continue with home medications including Coreg, aspirin, Lipitor, Plavix 3. GERD ? Stable ? Continue with PPI 4. Anxiety/depression ? Stable ? Continue with Paxil DVT: SCDs Charges/Coding Visit Charges OBSV E&M: 30276 Subsequent observation care L2
[2022-10-11 14:59] LABS: Magnesium 1.9 mg/dL (1.6-2.6); Phosphorus 5.3 mg/dL (2.5-4.9)
--- NOTE | 2022-10-11 17:40 | DIALYSIS ---
CCPD initiated without complications. 2 bags 1.5% x 5exchanges. Fill volume 2000mL No final fill. Effluent clear pale yellow with no fibrin noted. Dressing dry and intact no drainage. Pt stable and alert with no complaints. Initial drain completed and initial fill in progress without difficulties. Report to BRENDEN Rasheed
[2022-10-11] MEDS: Atorvastatin Calcium 40 MG Tablet PO (21:44)
[2022-10-12] VITALS (9 sets, daily range): BP systolic 91–118; BP diastolic 57–81; PULSE 64–91; RESP 16–18; TEMP 36.6–36.8; O2SAT 98–100
[2022-10-12] MEDS: 0.9% Normal Saline 1,000 ML 75 ML IV (01:44)
[2022-10-12 07:14] LABS: Absolute Lymphocyte Count 1.75 X10^3/uL (0.83-4.51); Absolute Neutrophil Count 3.8 X10^3/uL (2.0-7.7); Basophil# 0.06 X10^3/uL; Basophil% 0.9 % (0-1); Eosinophil# 0.21 X10^3/uL; Eosinophils% 3.3 % (0-5); Lymphocyte # 1.75 X10^3/ul (0.83-4.51); Lymphocyte % 27.7 % (19-41); Mean Corp Hgb Conc 32.1 g/dL (32-36); Mean Corpuscular Hgb 29.2 pg (27.0-32.0); Mean Corpuscular Volume 90.9 fL (81-99); Mean Platelet Vol. 11.7 fl (6.2-12.0); Monocyte# 0.46 X10^3/uL; Monocyte% 7.3 % (0-10); NRBC Flagged by Analyzer 0 % (0-5); Neutrophil # 3.82 X10^3/uL (2.7-7.7); Neutrophil % 60.5 % (47-70); Platelet Count 185 K/mm3 (150-450); RBC Distribution Width CV 13.2 % (11.6-14.6); RBC Distribution Width SD 43.8 fl (35.1-43.9); Red Blood Count 3.08 M/mm3 (4.2-5.4); White Blood Count 6.3 K/mm3 (4.4-11.0)
[2022-10-12 07:52] LABS: BUN 40 mg/dL (7-18); BUN/Creat Ratio 7.2 RATIO (10-20); Calcium,Total 8.6 mg/dL (8.5-10.1); Chloride 109 mmol/L (98-107); Creatinine, Serum 5.55 mg/dL (0.55-1.02); EST Glomerular Filtration Rate 8 mL/min (>60); Est Glom Filt Rate - Afr Amer 10 mL/min (>60); Estimated Creatinine Clearance 8.45 ml/min; Glucose 121 mg/dL (74-106); Phosphorus 4.4 mg/dL (2.5-4.9); Potassium 3.1 mmol/L (3.5-5.1); Sodium Level 141 mmol/L (136-145)
--- NOTE | 2022-10-12 08:43 | PCM.PN.CARD ---
Subjective Subjective The patient is awake and alert. She denies any ongoing chest discomfort, difficulty breathing, palpitations, or sensation of near syncope/syncope. The patient does admit that following her [facility] April 2022 hospitalization that she was not taking her medications as prescribed including her antiplatelet therapy. Based upon medical records received for review, it appears the patient presented May of this year to the [facility] system with complaints of chest discomfort. It appears at that time she had admitted she had not been taking her dual antiplatelet therapy. She stated she had continued her aspirin therapy but she discontinued her clopidogrel/Plavix therapy. She subsequently underwent noninvasive and invasive evaluation at that time. According to medical records from 05-29-2022 she had a transthoracic echocardiogram performed. Based upon review of the report it appears her left ventricle was listed as having regional wall motion abnormalities with mid inferior septal akinesis and inferior wall severe hypokinesis with an LVEF of 56%, mild left atrial enlargement, trivial MR/TR, mild AI, and an estimated RV systolic pressure 22 mmHg. Also. She underwent diagnostic cardiac catheterization on 06-01-2022 while at [facility]. According to the report the left main coronary artery was normal, the LAD had severe diffuse disease-90%, the LCx had mild diffuse disease, the RCA had severe diffuse disease in the midsegment demonstrated 100% in-stent restenosis. The left ventricular evaluation demonstrated inferior wall hypokinesis with an LVEF of 45%. She was recommended for medical management. Objective Data Vital Signs: Vital Signs Temp Pulse Resp BP Pulse Ox O2 Del Method 98.2 F 70 18 118/78 100 Room Air 10/12/22 03:15 10/12/22 06:59 10/12/22 03:15 10/12/22 06:51 10/12/22 03:15 10/12/22 03:15 Oxygen Delivery Method Room Air Weight: 130 lb 11.2 oz Body Mass Index (BMI) 18.3 Intake & Output: Intake and Output for Last 24 Hours 10/10/22 10/11/22 10/12/22 23:59 23:59 23:59 Intake Total 1500 / 1500 1070 / 1070 930 / 930 Output Total 300 / 300 Balance 1500 / 1500 770 / 770 930 / 930 Lab / Micro Data Result Diagrams: 10/12/22 06:10 10/12/22 06:10 Labs: Laboratory Results - last 24 hr 10/10/22 10:30: Urine Color Yellow, Urine Clarity Sl. Cloudy, Urine pH 7.0, Ur Specific [place] 1.010, Urine Protein 30 H, Urine Glucose (UA) Normal, Urine Ketones Negative, Urine Occult Blood 25 H, Urine Nitrite Negative, Urine Bilirubin Negative, Urine Urobilinogen Normal, Ur Leukocyte Esterase 500 H, Urine RBC 0-5 SEEN, Urine WBC 25-50 SEEN, Ur Squamous Epith Cells 0-5 SEEN, Urine Bacteria 1+, Urine Mucus 0 SEEN 10/11/22 06:10: Troponin I High Sens 145 H* 10/11/22 06:10: Phosphorus 5.3 H, Magnesium 1.9 10/11/22 09:01: WBC 7.1, RBC 3.22 L, Hgb 9.6 L, Hct 28.9 L, MCV 89.8, MCH 29.8, MCHC 33.2 D, RDW Std Deviation 43.4, RDW Coeff of [place] 13.2, Plt Count 191, MPV 11.3, Immature Gran % (Auto) 0.100, Neut % (Auto) 61.5, Lymph % (Auto) 27.4, [place] % (Auto) 8.3, Eos % (Auto) 2.1, Baso % (Auto) 0.6, Absolute Neuts (auto) 4.3, Absolute Lymphs (auto) 1.94, Nucleated RBC % 0 10/12/22 06:10: Sodium 141, Potassium 3.1 L, Chloride 109 H, Carbon Dioxide 23.0, BUN 40 H, Creatinine 5.55 H, Estim Creat Clear Calc 8.45, Est GFR (MDRD) Af Amer 10 L, Est GFR (MDRD) Non-Af 8 L, BUN/Creatinine Ratio 7.2 L, Glucose 121 H, Calcium 8.6, Phosphorus 4.4, Albumin 2.0 L 10/12/22 06:10: WBC 6.3, RBC 3.08 L, Hgb 9.0 L, Hct 28.0 L, MCV 90.9, MCH 29.2, MCHC 32.1, RDW Std Deviation 43.8, RDW Coeff of [place] 13.2, Plt Count 185, MPV 11.7, Immature Gran % (Auto) 0.300, Neut % (Auto) 60.5, Lymph % (Auto) 27.7, [place] % (Auto) 7.3, Eos % (Auto) 3.3, Baso % (Auto) 0.9, Absolute Neuts (auto) 3.8, Absolute Lymphs (auto) 1.75, Nucleated RBC % 0 Micro: Microbiology 10/10/22 15:30 Blood Culture (Wb) - Right Forearm Blood Culture - Preliminary No growth in 48 hours. 10/10/22 14:50 Blood Culture (Wb) - Right Forearm Blood Culture - Preliminary No growth in 48 hours. Cardiology Labs/Tests 10/10/22 10:30: Urine Color Yellow, Urine Clarity Sl. Cloudy, Urine pH 7.0, Ur Specific [place] 1.010, Urine Protein 30 H, Urine Glucose (UA) Normal, Urine Ketones Negative, Urine Occult Blood 25 H, Urine Nitrite Negative, Urine Bilirubin Negative, Urine Urobilinogen Normal, Ur Leukocyte Esterase 500 H, Urine RBC 0-5 SEEN, Urine WBC 25-50 SEEN 10/11/22 06:10: Phosphorus 5.3 H, Magnesium 1.9 10/11/22 09:01: WBC 7.1, RBC 3.22 L, Hgb 9.6 L, Hct 28.9 L, MCV 89.8, MCH 29.8, MCHC 33.2 D, Plt Count 191, MPV 11.3, Immature Gran % (Auto) 0.100, Neut % (Auto) 61.5, Lymph % (Auto) 27.4, [place] % (Auto) 8.3, Eos % (Auto) 2.1, Baso % (Auto) 0.6, Absolute Neuts (auto) 4.3, Nucleated RBC % 0 10/12/22 06:10: Sodium 141, Potassium 3.1 L, Chloride 109 H, Carbon Dioxide 23.0, BUN 40 H, Creatinine 5.55 H, Est GFR (MDRD) Af Amer 10 L, Est GFR (MDRD) Non-Af 8 L, BUN/Creatinine Ratio 7.2 L, Glucose 121 H, Calcium 8.6, Phosphorus 4.4 10/12/22 06:10: WBC 6.3, RBC 3.08 L, Hgb 9.0 L, Hct 28.0 L, MCV 90.9, MCH 29.2, MCHC 32.1, Plt Count 185, MPV 11.7, Immature Gran % (Auto) 0.300, Neut % (Auto) 60.5, Lymph % (Auto) 27.7, [place] % (Auto) 7.3, Eos % (Auto) 3.3, Baso % (Auto) 0.9, Absolute Neuts (auto) 3.8, Nucleated RBC % 0 Rhythm: Sinus rhythm ECHO: As noted below Radiography Diagnostic Testing: Radiology Impression Echocardiogram 10/11/22 09:10 Interpretation Summary Left ventricular systolic function is normal. The estimated ejection fraction is 65 %. The left atrium is mildly enlarged. There is moderate to severe mitral annular calcification. Extension of the mitral annular calcification onto the base of the posterior mitral valve leaflet. Trivial mitral valve insufficiency. Trivial tricuspid valve insufficiency. Mild focal aortic valve calcification. Trivial pulmonic valve insufficiency. Unable to estimate RV systolic pressure due to insufficient tricuspid regurgitant envelope. Diastolic function is indeterminate. Ordering Physician: Emerson Real Referring Physician: Jewell Bowens Performed By: Yaneth Jacobo, KARSTEN, RVT Physical Exam Const alert, oriented x3 and no apparent distress Orientation / Consciousness: awake HEENT normocephalic, head/scalp atraumatic and hearing grossly normal bilaterally Eyes PERRL, EOMs intact bilaterally, conjunctivae normal and no scleral icterus Neck full ROM, supple and no JVD Resp normal respiratory effort and clear to auscultation bilaterally Cardio regular rate, regular rhythm, S1 normal heart sound and S2 normal heart sound GI normal to inspection, nondistended, normoactive bowel sounds Extremity no pedal edema Skin no rashes or lesions noted Psych mental status grossly normal Assessment & Plan Assessment/Plan (1) Elevated troponin: PLAN: The patient does have elevated high-sensitivity troponin I levels. They have not demonstrated a significant peak and decline. They are markedly lower than her April 2022 event with her acute coronary syndrome. This point in time the consensus is that her cardiac enzyme change is related to her underlying chronic renal insufficiency on chronic dialysis therapy and represent more of a type II event than a primary acute coronary syndrome type I event. Her ECG is demonstrated no acute changes. Her previous [facility] cardiovascular records were reviewed. Her previous [facility] records/F records were reviewed as noted above At the present time she will continue her current medical therapy which does include her aspirin, antiplatelet therapy, beta-ancelmo therapy, and lipid-lowering therapy. She is not on diuretic therapy or afterload reducing agents such as MIGUEL inhibitor's, ARB's, or Entresto secondary to her chronic renal sufficiency/chronic peritoneal dialysis. (2) Atherosclerosis of coronary artery of [place] heart without angina pectoris: PLAN: The patient has a history of CAD as previously described. She is not presenting with symptoms of classic angina pectoris with respect to chest discomfort at this time. She has been undergoing noninvasive evaluation as noted. She will continue with noninvasive valuation at this time. She will continue medical therapy. (3) History of coronary artery stent placement: PLAN: Her previous [facility] medical records were reviewed. Again, her previous [facility]/F records were reviewed as noted She will continue her noninvasive evaluation. (4) Hypertension: QUALIFIERS: Hypertension type: essential hypertension Qualified Code(s): I10 - Essential (primary) hypertension PLAN: The patient's blood pressures were reported as being compatible with orthostatic hypotension. She will need to continue adjustment of her volume status to avoid such findings which may be the etiology for her symptoms. (5) ESRD (end stage renal disease) on dialysis: PLAN: The patient does have end-stage renal disease. She has been followed by nephrology. She will continue evaluation care per nephrology. (6) Anemia: PLAN: The patient has a longstanding history of anemia. This may be related to her chronic renal insufficiency. This will have to be taken into consideration with respect to her symptoms and further evaluation and care. (7) Dizziness: PLAN: The patient does have a history of dizziness. Again this may be secondary to her orthostatic changes. She will continue evaluation care per internal medicine as well as nephrology. (8) Exertional dyspnea: PLAN: The patient has a history of exertional dyspnea. The etiology of her exertional dyspnea may be multifactorial based upon her multiple comorbidities. From a cardiac standpoint, status post review of her case/medical records, the plan is to continue medical therapy with adjustment as needed with no plans for additional cardiovascular diagnostic studies/intervention at this time. (9) Fatigue: PLAN: The patient states she is fatigued. This may be from multiple etiologies with respect to her cardiac and noncardiac conditions. From a cardiac standpoint she will continue medical management. Addt'l Comments The patient's case was discussed and reviewed with the patient as well as with Dr. Metcalf of the [facility] hospitalist group. Thank you for allowing me to participate in the care of your patient. Please don't hesitate to call if any issues arise. This note was generated using a voice recognition system and there may be incorrect words, spelling or punctuation that were not noted when reviewing the office note prior to saving. Procedure Criteria Type of Procedure Procedure Type: Elective Elective Risks - COVID COVID Risk Discussion: The surgeon/proceduralist and patient have discussed in detail the risk of exposure to and/or potential harm posed by the COVID-19 virus with having a surgery/procedure at this time versus the risk of delaying the surgery/procedure. It is not possible to know either the risk of delaying the surgery or procedure or chance of getting an infection with perfect accuracy, but a joint decision was made between the patient and the surgeon/proceduralist to proceed at this time with the scheduled surgery/procedure as indicated on the consent form.
[2022-10-12] MEDS: Paroxetine 20 MG Tablet PO (09:12)
[2022-10-12] MEDS: Pantoprazole Sodium 40 MG Tablet PO (09:12)
[2022-10-12] MEDS: Carvedilol 3.125 MG TABLET PO (09:12)
[2022-10-12] MEDS: Aspirin E.C. 81 MG Tablet PO (09:12)
[2022-10-12] MEDS: Clopidogrel Bisulfate 75 MG Tablet PO (09:12)
[2022-10-12] MEDS: Potassium Chloride Oral Tablet 20 MEQ 60 MEQ PO (09:12)
--- NOTE | 2022-10-12 09:41 | PN.RENAL_ITS ---
Documented by User: JUAN Quinteros 10/12/22 09:47 Subjective Subjective Resting in bed, reports feeling better overall. She is hopeful to go home today. Reports appetite is still fair Objective Data Objective Data Vital Signs: Vital Signs Temp Pulse Resp BP Pulse Ox O2 Del Method 97.9 F 72 16 104/80 99 Room Air 10/12/22 09:08 10/12/22 09:08 10/12/22 09:08 10/12/22 09:08 10/12/22 09:08 10/12/22 09:08 Oxygen Delivery Method Room Air Weight: 59.285 kg Body Mass Index (BMI) 18.3 Intake & Output: Intake and Output for Last 24 Hours 10/10/22 10/11/22 10/12/22 23:59 23:59 23:59 Intake Total 1500 / 1500 1070 / 1070 930 / 930 Output Total 300 / 300 Balance 1500 / 1500 770 / 770 930 / 930 Medical Nutrition Assessment Dietitian: Malnutrition Criteria Met Start: 10/11/22 15:53 Freq: Status: Active Protocol: Document 10/11/22 15:53 AG (Rec: 10/11/22 15:53 [id number]) Nutrition Malnutrition Evidence of Malnutrition Exists Yes Malnutrition (severe): Chronic Evidenced By Suboptimal Energy Intake ( Severe),Weight Loss (Severe) Clinical Problem Chronic Disease or Condition Related Malnutrition Etiology severe, chronic malnutrition related to inadequate energy intake w/ increased energy needs d/t ESRD Signs/Symptoms as evidenced by estimated PO intake meeting <50% of estimated energy needs x 2 months; unintentional wt loss of 4.43/7.7% x 2 months; BMI 18.3 Status Active Problem Recommendation Dietitian Recommendations/Changes regular/no added salt diet given severe malnutrition; will provide carnation instant breakfast w/ meals for additional calories/protein if consumed Lab / Micro Data Result Diagrams: 10/12/22 06:10 10/12/22 06:10 Labs: Laboratory Results - last 24 hr 10/10/22 10:30: Urine Color Yellow, Urine Clarity Sl. Cloudy, Urine pH 7.0, Ur Specific [place] 1.010, Urine Protein 30 H, Urine Glucose (UA) Normal, Urine Ketones Negative, Urine Occult Blood 25 H, Urine Nitrite Negative, Urine Bilirubin Negative, Urine Urobilinogen Normal, Ur Leukocyte Esterase 500 H, Urine RBC 0-5 SEEN, Urine WBC 25-50 SEEN, Ur Squamous Epith Cells 0-5 SEEN, Urine Bacteria 1+, Urine Mucus 0 SEEN 10/11/22 06:10: Troponin I High Sens 145 H* 10/11/22 06:10: Phosphorus 5.3 H, Magnesium 1.9 10/12/22 06:10: Sodium 141, Potassium 3.1 L, Chloride 109 H, Carbon Dioxide 23.0, BUN 40 H, Creatinine 5.55 H, Estim Creat Clear Calc 8.45, Est GFR (MDRD) Af Amer 10 L, Est GFR (MDRD) Non-Af 8 L, BUN/Creatinine Ratio 7.2 L, Glucose 121 H, Calcium 8.6, Phosphorus 4.4, Albumin 2.0 L 10/12/22 06:10: WBC 6.3, RBC 3.08 L, Hgb 9.0 L, Hct 28.0 L, MCV 90.9, MCH 29.2, MCHC 32.1, RDW Std Deviation 43.8, RDW Coeff of [place] 13.2, Plt Count 185, MPV 11.7, Immature Gran % (Auto) 0.300, Neut % (Auto) 60.5, Lymph % (Auto) 27.7, [place] % (Auto) 7.3, Eos % (Auto) 3.3, Baso % (Auto) 0.9, Absolute Neuts (auto) 3.8, Absolute Lymphs (auto) 1.75, Nucleated RBC % 0 Micro: Microbiology 10/10/22 15:30 Blood Culture (Wb) - Right Forearm Blood Culture - Preliminary No growth in 48 hours. 10/10/22 14:50 Blood Culture (Wb) - Right Forearm Blood Culture - Preliminary No growth in 48 hours. 10/10/22 15:03 Nasal Secretion SARS-CoV-2 & FLU Antigen (Rapid) - Final Radiography Diagnostic Testing: Radiology Impression Echocardiogram 10/11/22 09:10 Interpretation Summary Left ventricular systolic function is normal. The estimated ejection fraction is 65 %. The left atrium is mildly enlarged. There is moderate to severe mitral annular calcification. Extension of the mitral annular calcification onto the base of the posterior mitral valve leaflet. Trivial mitral valve insufficiency. Trivial tricuspid valve insufficiency. Mild focal aortic valve calcification. Trivial pulmonic valve insufficiency. Unable to estimate RV systolic pressure due to insufficient tricuspid regurgitant envelope. Diastolic function is indeterminate. Ordering Physician: Emerson Real Referring Physician: Jewell Bowens Performed By: Yaneth Jacobo, KARSTEN, RVT Physical Exam Narrative Const: Alert and oriented x3, no apparent distress. Ill-appearing Cardio: S1, S2, RRR Respiratory: Lung sounds clear anteriorly and posteriorly, no wheezes, rhonchi, or rales noted Abdomen: Soft, nontender, PD catheter with dressing clean dry and intact Extremities: No edema Assessment & Plan Assessment/Plan (1) ESRD (end stage renal disease) on dialysis: (2) Orthostatic hypotension: (3) Anemia: PLAN: Plan ESRD on PD support. Patient tolerated peritoneal dialysis last evening using 1.5% dianeal, UF ~500ml. Reviewed CXR no acute findings or fluid, she is on room air, she does have some urine output. Old EDW was 57.5 kg. Patient will need a new lowered dry weight. Potassium is low but improved with replacement yesterday, potassium is 3.1 today and replacement ordered again. I also encouraged patient to increase solute intake, at this time she does not need to follow a renal diet. Blood culture so far no growth. Patient has a history of anemia of chronic disease we will continue monitor hemoglobin trends. Dietitian consulted as patient does not have an appetite with weight loss. Cardiology was consulted. Echo done: Normal LV size, left ventricular systolic function normal, EF 65%, diastolic function is indeterminate. Patient to follow-up with cardiology in outpatient. Bps improved, on low dose Coreg. Ok for discharge per renal when cleared by primary team. Documented by User: Dr. Ramesh Shelley MD 10/12/22 11:16 Objective Data Lab / Micro Data Result Diagrams: 10/12/22 06:10 10/12/22 06:10 Assessment & Plan Assessment/Plan (1) ESRD (end stage renal disease) on dialysis: (2) Orthostatic hypotension: (3) Anemia: PLAN: Plan ESRD on PD support. Patient tolerated peritoneal dialysis last evening using 1.5% dianeal, UF ~500ml. Reviewed CXR no acute findings or fluid, she is on room air, she does have some urine output. Old EDW was 57.5 kg. Patient will need a new lowered dry weight. Potassium is low but improved with replacement yesterday, potassium is 3.1 today and replacement ordered again. I also enc ouraged patient to increase solute intake, at this time she does not need to follow a renal diet. Blood culture so far no growth. Patient has a history of anemia of chronic disease we will continue monitor hemoglobin trends. Dietitian consulted as patient does not have an appetite with weight loss. Cardiology was consulted. Echo done: Normal LV size, left ventricular systolic function normal, EF 65%, diastolic function is indeterminate. Patient to follow-up with cardiology in outpatient. Bps improved, on low dose Coreg. Ok for discharge per renal when cleared by primary team. patient seen and examined. Agree with note as outlined by SEWING MACHINE REPAIRER HELPER above -overall doing well -continue with current PD treatment -ok for discharge from renal's standpoint
--- NOTE | 2022-10-12 09:52 | DIALYSIS ---
CCPD completed when arrived to room at 0820 (in last 15 mins of dwell 5 of 5 at 0720), patient disconnected using aseptic technique, staysafe cap applied, UF 518mL, effluent clear and yellow NO fibrin, (2) bags 1.5% dianeal used last night
--- NOTE | 2022-10-12 11:30 | CASEMGMT ---
BRENDEN MARKS Assessment: Face to Face with pt for initial transition planning/care coordination assessment. BRENDEN MARKS introduced self and role at [facility], pt voices understanding and consents to assessment. Pt in bed with a blanket and hat from home. Appears to be in no distress. Pt is A/O and answers all questions appropriately at this time. Care providers, pharmacy, and demographics verified/updated. Admitting Dx: Dyspnea and dizziness. PCP: Jewell Bowens. Specialists: Addie, Cardiology; Sundar, Urology; Jassi, Nephrology. Preferred Pharmacy: [facility] and [facility] in [place]. Insurance: Medicare Part A B. AARP. [employer] for prescriptions. Prescription Benefit: Yes. LW/HPOA: Pt denies having a LW/HPOA. Pt is interested in speaking with a SW regarding this. SW advised. LNOK: María Elena Dumont dtr. Living Arrangements: Pt lives with dtr in a two story home with five steps to enter. The stairs have a railing. Pt stays on the first floor inside the home. Pt's dtr, María Elena, assists with ADLs when needed. Transportation: Pt's dtr, María Elena, provides transportation. DME/HHC/SNF: Pt has the following: walker, wheelchair, shower chair, grab bars, BSC, and stander/transfer poles. Pt checks the following regulary at home:? pulse, wgt, and BP.?Pt goes to [facility] in [place] but does dialysis at home daily. Pt has had HHC in the past including OT, PT, and ST. Pt states the provider was Gopal Wise. Pt denies any SNF stays. Pt states no concerns with going home at time of dc. Pt states no further concerns/needs. Pt states her dtr will assist when needed. Pt's dtr works from home. CM to follow. Advised pt to ask CM if any further question/concerns/needs arise, voices understanding. Pt Goal: Plan:?
[2022-10-12 12:49] LABS: Anion Gap 8 (5-15); BUN 38 mg/dL (7-18); BUN/Creat Ratio 6.9 RATIO (10-20); Calcium,Total 8.8 mg/dL (8.5-10.1); Chloride 110 mmol/L (98-107); Creatinine, Serum 5.49 mg/dL (0.55-1.02); EST Glomerular Filtration Rate 8 mL/min (>60); Est Glom Filt Rate - Afr Amer 10 mL/min (>60); Estimated Creatinine Clearance 8.54 ml/min; Glucose 108 mg/dL (74-106); Potassium 3.2 mmol/L (3.5-5.1); Sodium Level 140 mmol/L (136-145)
--- NOTE | 2022-10-12 14:44 | DCINST_ITS ---
Discharge Instructions Diet Discharge Diet: Low fat / Low cholesterol Activity Discharge Activity: Return to Normal Activity Dressing / Incision Call your doctor if you observe: Fever of 101 or Higher, Shortness of breath, Dizziness, Fainting spells, Swelling in the ankles, Chest pain and Increased palpitations (irregular heartbeat) Follow Up Care Test Results: Test results from this visit will be discussed in further detail at your follow- up appointment, if applicable. Discharge Plan Admission Admit Date/Time: 10/10/22 16:58 Attending Provider: Alejandra Metcalf Primary Care Provider: Jewell Bowens Consulting Providers: Rudy Arredondo ; Emerson Real ; Ramesh Shelley Discharge Orders/Prescriptions Prescriptions: Continued magnesium oxide 400 mg magnesium Tablet 400 mg PO DAILY mecobalamin (vitamin B12) [B12 Active] 1,000 mcg Tablet,Chewable 1,000 mcg PO BID potassium chloride 20 MEQ tablet,ER particles/crystals 10 meq PO DAILY sodium bicarbonate 650 mg tablet 650 mg PO TID Label Comments: TAKE 2 TABLETS BY MOUTH THREE TIMES DAILY ergocalciferol (vitamin D2) [Vitamin D2] 1,250 mcg (50,000 unit) Capsule 1,250 mcg PO QWEEK calcitriol 0.5 mcg Capsule 1 mcg PO DAILY prednisone 20 mg tablet 40 mg PO DAILY PRN (Reason: Radiologic Visualization) paroxetine HCl 20 mg tablet 20 tab PO DAILY Label Comments: TAKE 1 TABLET BY MOUTH DAILY FOR 7 DAYS then increase to 1&1/2 TABLETS DAILY THEREAFTER atorvastatin 40 mg tablet 40 mg PO QHS aspirin 81 mg tablet,delayed release (DR/EC) 81 mg PO BREAKFAST clopidogrel 75 mg tablet 75 mg PO DAILY carvedilol 3.125 mg tablet 3.125 mg PO BIDCM pantoprazole [Protonix] 40 mg tablet,delayed release (DR/EC) 40 mg PO DAILY PRN (Reason: GERD) Referrals / Follow Up: Jewell Bowens DO [Primary Care Provider] - Within 1 Week Emerson Real MD [Med Staff - Active Staff] - Within 3 Months Disposition Disposition (needs filled in before D/C Order can be placed): Home, Self Care
--- NOTE | 2022-10-12 14:46 | PCM.DC.SUM ---
Providers Date of Admission: 10/10/22 Primary Care Physician: Dr. Jewell Bowens, DO Consultations 10/10/22 17:27 Consult: Cardiology Routine Consulting Provider: Emerson Real Reason for Consult: Dyspnea with recent ID and stent EMERGENT Consult: No Notified: Yes Date Notified: 10/11/22 Time Notified: 07:33 Method of Notification: Text Consult: Nephrology Routine Consulting Provider: Ramesh Shelley Reason for Consult: Peritoneal dialysis EMERGENT Consult: No Notified: Yes Date Notified: 10/11/22 Time Notified: 07:36 Method of Notification: Answering Service Reason For Visit: DYSPNEA AND DIZZINESS Diagnosis Discharge Diagnosis (1) ESRD (end stage renal disease) on dialysis: Status: Acute Code(s): N18.6 - End stage renal disease; Z99.2 - Dependence on renal dialysis (2) Orthostatic hypotension: Status: Acute Code(s): I95.1 - Orthostatic hypotension (3) Anemia: Status: Acute Code(s): D64.9 - Anemia, unspecified Plan 1. Dizziness secondary to orthostatic hypotension from dehydration ? She had a virus back in August and since then has not been eating or drinking well but has continued her nightly dialysis for 10 hours ? Continue with IV fluids ? Will replace potassium and check a mag and Phos ? We will consult nephrology to direct on peritoneal dialysis ? She still remains orthostatic but feeling better 2. Dyspnea on exertion history of CAD status post stent with reocclusion ? She does have a stent in place that was reoccluded, she states that the initial stent was done here and then she went to [facility] during the reocclusion ? Continue with medical management ? We will consult cardiology for work-up and evaluation of the dyspnea on exertion, echo is pending ? We will continue with home medications including Coreg, aspirin, Lipitor, Plavix 3. GERD ? Stable ? Continue with PPI 4. Anxiety/depression ? Stable ? Continue with Paxil DVT: SCDs Medications at Discharge Home Medications magnesium oxide 400 mg PO DAILY supplement 12/17/21 mecobalamin (vitamin B12) 1,000 mcg chewable tablet (B12 Active) 1,000 mcg PO BID vitamin 12/17/21 potassium chloride 20 mEq tablet,extended release(part/cryst) 10 meq PO DAILY supplement 12/17/21 calcitriol 0.5 mcg capsule 1 mcg PO DAILY bone health 01/06/22 ergocalciferol (vitamin D2) 1,250 mcg (50,000 unit) capsule (Vitamin D2) 1,250 mcg PO QWEEK vitamin 01/06/22 sodium bicarbonate 650 mg tablet 650 mg PO TID supplement 01/06/22 prednisone 20 mg tablet 40 mg PO DAILY PRN Radiologic Visualization 03/16/22 paroxetine HCl 20 mg tablet 20 tab PO DAILY depression 05/10/22 aspirin 81 mg tablet,delayed release 81 mg PO BREAKFAST heart health 10/10/22 atorvastatin 40 mg tablet 40 mg PO QHS cholesterol 10/10/22 carvedilol 3.125 mg tablet 3.125 mg PO BIDCM heart 10/10/22 clopidogrel 75 mg tablet 75 mg PO DAILY blood thinner 10/10/22 pantoprazole 40 mg tablet,delayed release (Protonix) 40 mg PO DAILY PRN GERD 10/10/22 Hospital Course Operations None Procedures None Summary of Care Provided Minutes Spent on Discharge: 40 Hospital Course: Per HPI: CHRISTIANO AWAD, is a 72 F who presents to the hospital with dizziness and dyspnea with exertion.? She recently had a heart attack back in April and the stent reoccluded and had another PCI done however there is no intervention that could be done other than medical management.? She has been feeling okay since she had a initial heart attack in terms of shortness of breath because she was doing cardiac rehab as well as physical therapy however in August around , she had a respiratory virus and since then has been short of breath.? According to her daughter's been happening progressively over the last month that she has been getting worse.? She presented today for dizziness as well as multiple falls.? In the ER she was found to have for orthostatic hypotension she states that she has not been eating or drinking very well but she has been doing her peritoneal dialysis with the same glucose percentage solution at 1.5%.? In the ER she was started on IV fluids and given her dyspnea on exertion they consulted cardiology who felt that it might be beneficial to bring her in and evaluate her from a cardiac standpoint at this time.? Of note her troponin is only 144, back when she had her heart attack it was over 5000 and she does have a creatinine of around 5-6 at baseline so this troponin is not indicative of pathology. Hospital Course: 1. Dizziness secondary to orthostatic hypotension from dehydration/dyspnea on exertion?72-year-old female with a history of renal failure on peritoneal dialysis every night presents to the hospital with orthostatic hypotension and dyspnea on exertion. Initially was concerned that the dyspnea on exertion was cardiac related, cardiology was consulted and obtained an echo which was unremarkable. No changes were made to her home medications and she will follow-up with cardiology as an outpatient. She was started on IV fluids and today on the day of discharge, she had significant improvement in her dizziness and she was no longer orthostatic. She states that since she had that virus back in August she has not been eating or drinking as well as she should have been and so with the IV fluids and her improvement is likely secondary to dehydration. I discussed with her the need to remain well-hydrated while on dialysis. I discussed with her the plan for discharge today and she expressed understanding of the risk and benefits of going home and would like to go home today. She feels much better. 2. Coronary artery disease status post stent with reocclusion, hypertension, hyperlipidemia, GERD, anxiety, depression all chronic medical conditions which complicate her care medications were continued where appropriate Physical Exam Narrative General: Alert, Oriented x3, Cooperative, No apparent distress HEENT: Atraumatic, PERRLA, EOMI, Normocephalic Oral: Moist mucosa Neck: Supple, No JVD Lungs: Diminished, Normal air movement, No rhonchi, No wheeze, No rales Cardiovascular: Regular rate, Regular Rhythm, Normal S1, Normal S2, No murmurs Abdomen: Soft, Non Tender, Non-Distended, No Hepato-splenomegaly, dialysis port on the left flank Extremities: No edema, Capillary Refill Less than 3 Seconds Skin: No rashes, No breakdown Musculoskeletal: No Tenderness to Palpation of Joints or Extremities Neurological: Cranial nerves II-XII grossly intact, Motor Exam 5/5 strength throughout, Sensory exam intact to light touch and pain Psych/Mental Status: Normal Affect, Appropriate Medical Records Data Medical Nutrition Assessment Dietitian: Malnutrition Criteria Met Start: 10/11/22 15:53 Freq: Status: Active Protocol: Document 10/11/22 15:53 AG (Rec: 10/11/22 15:53 AG [id number]) Nutrition Malnutrition Evidence of Malnutrition Exists Yes Malnutrition (severe): Chronic Evidenced By Suboptimal Energy Intake ( Severe),Weight Loss (Severe) Clinical Problem Chronic Disease or Condition Related Malnutrition Etiology severe, chronic malnutrition related to inadequate energy intake w/ increased energy needs d/t ESRD Signs/Symptoms as evidenced by estimated PO intake meeting <50% of estimated energy needs x 2 months; unintentional wt loss of 4.43/7.7% x 2 months; BMI 18.3 Status Active Problem Recommendation Dietitian Recommendations/Changes regular/no added salt diet given severe malnutrition; will provide carnation instant breakfast w/ meals for additional calories/protein if consumed Weight / BMI Weight Weight: 130 lb 11.2 oz Body Mass Index (BMI) 18.3 ABG / Lab / Microbiology Data Result Diagrams: 10/12/22 06:10 10/12/22 11:54 Laboratory: Laboratory Results - last 24 hr 10/11/22 06:10: Phosphorus 5.3 H, Magnesium 1.9 10/12/22 06:10: Sodium 141, Potassium 3.1 L, Chloride 109 H, Carbon Dioxide 23.0, BUN 40 H, Creatinine 5.55 H, Estim Creat Clear Calc 8.45, Est GFR (MDRD) Af Amer 10 L, Est GFR (MDRD) Non-Af 8 L, BUN/Creatinine Ratio 7.2 L, Glucose 121 H, Calcium 8.6, Phosphorus 4.4, Albumin 2.0 L 10/12/22 06:10: WBC 6.3, RBC 3.08 L, Hgb 9.0 L, Hct 28.0 L, MCV 90.9, MCH 29.2, MCHC 32.1, RDW Std Deviation 43.8, RDW Coeff of [place] 13.2, Plt Count 185, MPV 11.7, Immature Gran % (Auto) 0.300, Neut % (Auto) 60.5, Lymph % (Auto) 27.7, [place] % (Auto) 7.3, Eos % (Auto) 3.3, Baso % (Auto) 0.9, Absolute Neuts (auto) 3.8, Absolute Lymphs (auto) 1.75, Nucleated RBC % 0 10/12/22 11:54: Sodium 140, Potassium 3.2 L, Chloride 110 H, Carbon Dioxide 22.0, Anion Gap 8, BUN 38 H, Creatinine 5.49 H, Estim Creat Clear Calc 8.54, Est GFR (MDRD) Af Amer 10 L, Est GFR (MDRD) Non-Af 8 L, BUN/Creatinine Ratio 6.9 L, Glucose 108 H, Calcium 8.8 Microbiology: Microbiology 10/10/22 15:30 Blood Culture (Wb) - Right Forearm Blood Culture - Preliminary No growth in 48 hours. 10/10/22 14:50 Blood Culture (Wb) - Right Forearm Blood Culture - Preliminary No growth in 48 hours. 10/10/22 15:03 Nasal Secretion SARS-CoV-2 & FLU Antigen (Rapid) - Final Radiography Diagnostic Testing: Radiology Impression Echocardiogram 10/11/22 09:10 Interpretation Summary Left ventricular systolic function is normal. The estimated ejection fraction is 65 %. The left atrium is mildly enlarged. There is moderate to severe mitral annular calcification. Extension of the mitral annular calcification onto the base of the posterior mitral valve leaflet. Trivial mitral valve insufficiency. Trivial tricuspid valve insufficiency. Mild focal aortic valve calcification. Trivial pulmonic valve insufficiency. Unable to estimate RV systolic pressure due to insufficient tricuspid regurgitant envelope. Diastolic function is indeterminate. Ordering Physician: Emerson Real Referring Physician: Jewell Bowens Performed By: Yaneth Jacobo RDCS, RVT D/C Instructions Discharge Diet: Low fat / Low cholesterol Call your doctor if you observe: Fever of 101 or Higher, Shortness of breath, Dizziness, Fainting spells, Swelling in the ankles, Chest pain and Increased palpitations (irregular heartbeat) Meaningful Use Info Meaningful Use Diagnoses (Choose all that apply): None applicable Discharge Plan Admission Admit Date/Time: 10/10/22 16:58 Attending Provider: Alejandra Metcalf Primary Care Provider: Jewell Bowens Consulting Providers: Rudy Arredondo ; Emerson Real ; Ramesh Shelley Discharge Orders/Prescriptions Prescriptions: Continued magnesium oxide 400 mg magnesium Tablet 400 mg PO DAILY mecobalamin (vitamin B12) [B12 Active] 1,000 mcg Tablet,Chewable 1,000 mcg PO BID potassium chloride 20 MEQ tablet,ER particles/crystals 10 meq PO DAILY sodium bicarbonate 650 mg tablet 650 mg PO TID Label Comments: TAKE 2 TABLETS BY MOUTH THREE TIMES DAILY ergocalciferol (vitamin D2) [Vitamin D2] 1,250 mcg (50,000 unit) Capsule 1,250 mcg PO QWEEK calcitriol 0.5 mcg Capsule 1 mcg PO DAILY prednisone 20 mg tablet 40 mg PO DAILY PRN (Reason: Radiologic Visualization) paroxetine HCl 20 mg tablet 20 tab PO DAILY Label Comments: TAKE 1 TABLET BY MOUTH DAILY FOR 7 DAYS then increase to 1&1/2 TABLETS DAILY THEREAFTER atorvastatin 40 mg tablet 40 mg PO QHS aspirin 81 mg tablet,delayed release (DR/EC) 81 mg PO BREAKFAST clopidogrel 75 mg tablet 75 mg PO DAILY carvedilol 3.125 mg tablet 3.125 mg PO BIDCM pantoprazole [Protonix] 40 mg tablet,delayed release (DR/EC) 40 mg PO DAILY PRN (Reason: GERD) Referrals / Follow Up: Jewell Bowens DO [Primary Care Provider] - Within 1 Week Emerson Real MD [Med Staff - Active Staff] - Within 3 Months Disposition Disposition (needs filled in before D/C Order can be placed): Home, Self Care Charges/Coding Visit Charges OBSV E&M: 90815 Observation care discharge
--- NOTE | 2022-10-12 15:43 | CASEMGMT ---
BRENDEN MARKS in to discuss CHILDRESS form with patient. RN SELINA explained CHILDRESS form, patient voiced understanding. Pt signed form and filed in chart. Pt provided with a copy of signed CHILDRESS form. Pt denies any homegoing needs and is dressed ready for dc. Patient had no further questions or concerns at this time.
--- NOTE | 2022-10-12 16:40 | CASEMGMT ---
Social Work Referral received from Cris Pat RN CM regarding patient's interest in advanced directives. Chart review and noted patient has both a POAHC and Living Will on file, completed in 2018. Daughter is primary POAHC. Met with patient in room, introduced to self and role. Educated patient to advanced directives on file. Patient expressed thought that had completed a couple of years ago. Patient denies desire to redo forms. Offered to copy the directives for patient, to which patient reported this would be appreciated. Copied forms and provided to patient. No other services requested. -BRITTNEY Trujillo, CORRECTIONAL SERGEANT
== END 2022-10-12 15:53 | disposition home or self-care (01) ==
LOC: ED 16:32 → PCU 10-11 06:54 → MS2 10-11 10:35
PROVIDERS: Internal Medicine Cardiovascular Disease; Nurse Practitioner Adult Health; Admitting Provider Family Medicine; Emergency Provider Emergency Medicine; PCP Family Medicine; Visit Provider Internal Medicine
DX: E86.0 Dehydration (principal); Z99.2 Dependence on renal dialysis; M06.9 Rheumatoid arthritis, unspecified; I12.0 Hypertensive chronic kidney disease with stage 5 chronic kidney disease or end stage renal disease; N18.6 End stage renal disease; I49.3 Ventricular premature depolarization; I95.1 Orthostatic hypotension; R53.1 Weakness; D64.9 Anemia, unspecified; Z79.52 Long term (current) use of systemic steroids; Z79.02 Long term (current) use of antithrombotics/antiplatelets; I25.10 Atherosclerotic heart disease of native coronary artery without angina pectoris; K21.9 Gastro-esophageal reflux disease without esophagitis; F41.9 Anxiety disorder, unspecified; Z95.5 Presence of coronary angioplasty implant and graft; Z79.82 Long term (current) use of aspirin; E78.5 Hyperlipidemia, unspecified; F32.A Depression, unspecified; Z79.899 Other long term (current) drug therapy; I25.2 Old myocardial infarction; Z98.84 Bariatric surgery status
CPT/HCPCS: 36415; 71045; 80048; 80053; 80069; 81001; 83605; 83735; 84100; 84484; 85025; 87040; 87428; 90947; 93005; 93306; 96360; 96361; 97802; 99218; 99285; J7030; A4216; G0257; G0378

== ENCOUNTER 2023-05-22 16:43 | Emergency (ER) | payer MEDICARE, OTHER, SELFPAY ==
[2022-05-22 12:03] VITALS: BMI 22.2
[2023-05-22 16:44] VITALS: BP 113/79; PULSE 90; RESP 18; TEMP 35.9; O2SAT 97
--- NOTE | 2023-05-22 17:35 | ED.VIS.GI ---
HPI HPI - GI History of Present Illness Chief Complaint: Abd Pain Detail of Chief Complaint: Abdominal cramping for 2 weeks. Constipation. Informant: patient and family Abdominal Pain/Flank Pain Onset: Weeks Context: Gradual Onset Timing: Intermittent Quality: Cramping Location: Diffuse Current Severity: Mild Maximum Severity: Mild Worsened by: Nothing Nausea/Vomiting/Emesis GI Symptom: Positive for Nausea; Negative for Vomiting Diarrhea/Melena/Hematochezia GI Symptom: Positive for - (Constipation for 2 weeks.); Negative for Diarrhea, Melena or Hematochezia Onset: Weeks Severity: Mild Associated Symptoms Associated Symptoms: Negative for Dysuria, Frequency, Hematuria or Urgency Narrative Narrative: 73-year-old female end-stage renal disease and peritoneal dialysis at home for the last 4 years. History of prior gastric bypass. She normally does not have a history of constipation the last 2 weeks she has had constipation and diffuse abdominal discomfort. Denies fever. Nausea no vomiting. Limited bowel movements for the last 2 weeks. No dysuria. Denies any recent medication changes. Prior similar symptoms: No Recent Illness/Hospitalization: No PFSH PFSH Medical History Acute kidney injury superimposed on CKD Ambulates with cane Anemia Anxiety Arterial steal syndrome Arthritis Atherosclerosis of coronary artery of [place] heart without angina pectoris Back pain Chronic renal failure, stage 5 Depression Dietary restriction Discoloration of skin Easy bruising ESRD (end stage renal disease) on dialysis Gastric reflux History of edema History of renal dialysis History of renal disease History of steroid therapy History of stress test Hypertension Peritoneal dialysis catheter in place Post-menopausal Renal calculi Rheumatoid arthritis Seasonal allergies Shortness of breath on exertion Superficial thrombophlebitis of arm Urinary tract infection Vascular dialysis catheter in place Wears glasses Home Medications magnesium oxide 400 mg PO DAILY supplement 12/17/21 [History Last Taken 10/10/22] mecobalamin (vitamin B12) 1,000 mcg chewable tablet (B12 Active) 1,000 mcg PO BID vitamin 12/17/21 [History Last Taken 10/10/22] ergocalciferol (vitamin D2) 1,250 mcg (50,000 unit) capsule (Vitamin D2) 1,250 mcg PO QWEEK vitamin 01/06/22 [History Last Taken 10/04/22] sodium bicarbonate 650 mg tablet 650 mg PO TID supplement 01/06/22 [History Last Taken 10/10/22] aspirin 81 mg tablet,delayed release 81 mg PO BREAKFAST heart health 10/10/22 [History Last Taken 10/10/22] calcitriol 0.5 mcg capsule 1 mcg PO DAILY bone health 12/21/22 [History Last Taken Unknown] carvedilol 3.125 mg tablet 3.125 mg PO DAILY heart #90 tabs 12/21/22 [Rx Last Taken Unknown] clopidogrel 75 mg tablet 75 mg PO DAILY blood thinner #90 tabs 12/21/22 [Rx Last Taken Unknown] potassium chloride 20 mEq tablet,extended release(part/cryst) 10 meq PO BID supplement 12/21/22 [History Last Taken Unknown] atorvastatin 40 mg tablet 40 mg PO QAM cholesterol 04/06/23 [History Last Taken Unknown] paroxetine HCl 20 mg tablet 20 mg PO DAILY depression 04/06/23 [History Last Taken Unknown] Allergy/AdvReac Type Severity Reaction Status Date / Time adhesive tape Allergy Rash Verified 05/22/23 16:44 amoxicillin [From Augmentin] Allergy Swelling Verified 05/22/23 16:44 srinivasan Allergy Itching Verified 05/22/23 16:44 cephalexin [From Keflex] Allergy Swelling Verified 05/22/23 16:44 clavulanic acid Allergy Swelling Verified 05/22/23 16:44 [From Augmentin] latex Allergy Rash Verified 05/22/23 16:44 Penicillins [PCN] Allergy Swelling Verified 05/22/23 16:44 sulfamethoxazole Allergy rash,swellling, Verified 05/22/23 16:44 [From Bactrim] itching trimethoprim [From Bactrim] Allergy rash,swellling, Verified 05/22/23 16:44 itching walnut Allergy Itching Verified 05/22/23 16:44 Family History Mother Heart disease Diabetes Hypertension Father Dementia Surgical History H/O hernia repair history Left AV Fistula Creation (~05/03/20) History of colonoscopy History of coronary artery stent placement (05/10/22) History of esophagogastroduodenoscopy (EGD) Hx of cystoscopy Hx of cystoscopy S/P bypass gastroenterostomy S/P coronary artery stent placement S/P hemorrhoidectomy Social History household members: other details: Lives with her daughter. Smoking Status: Never smoker alcohol intake: never substance use type: does not use ROS ROS ED ROS Narrative Constipation. Abdominal cramping. Nausea Review of Systems ROS Unobtainable: Denies due to encephalopathy Constitutional Constitutional ED: Denies chills or fever(s) ENT ENT ED: Denies ear pain Cardiovascular Cardiovascular: Denies chest pain Respiratory/Chest Respiratory/Chest: Denies cough or dyspnea Gastrointestinal Gastrointestinal: Reports abdominal pain, constipation and nausea; Denies diarrhea, melena or vomiting Genitourinary Genitourinary ED: Denies dysuria or hematuria Musculoskeletal Musculoskeletal: Denies arthralgias Integumentary Denies abscess Neurologic Neurologic: Denies headache(s) Psychiatric Psychiatric: Denies anxiety Endocrine Endocrinology: Denies polydipsia Hematologic/Lymphatic Hematologic/Lymphatic: Denies easy bleeding Allergic/Immunologic Allergic/Immunologic ED: Denies mouth swelling EXAM Physical Exam Narrative Exam Narrative: 73-year-old female no acute distress. Vital signs stable afebrile. H EENT exam unremarkable. Neck nontender. Lungs clear. Heart regular rhythm no murmur. Rate about 85. Abdomen soft nondistended normal bowel sounds no peritoneal signs. No localizing tenderness. No hernia or mass. No distention. Positive bowel sounds. Soft. Peritoneal dialysis cath in the left side of the abdomen. Moves all 4 extremities. Neurologically is awake and alert. Const Vital Signs: 05/22/23 16:44 05/22/23 20:29 Temperature 96.7 F L Temperature Source Temporal Pulse Rate 90 67 Respiratory Rate 18 16 Blood Pressure 113/79 119/69 Blood Pressure Mean 90 85 Pulse Ox 97 97 Oxygen Delivery Method Room Air Room Air Positive well nourished and well developed; Negative for obese, cachectic, contractures or unkempt General Appearance ED: well developed and NAD; Negative for unkempt, cachectic, contractures or pallor Nutritional Appearance: Negative for cachectic or obese HEENT Reports moist mucous membranes normocephalic and atraumatic; Negative for trauma or tenderness Eyes PERRL and EOMs intact bilaterally General Eye ED: Negative for pale conjunctiva or scleral icterus Neck no lymphadenopathy, supple and no JVD General: Negative for tenderness Carotids: Negative for other Lymph Lymphatic: Negative for other Resp normal respiratory effort and clear to auscultation bilaterally Effort and Inspection: Negative for respiratory distress Auscultation: Negative for rales, rhonchi or wheezes Cardio regular rate, regular rhythm, S1 normal heart sound, S2 normal heart sound and no murmurs GI non-tender, non-distended and no masses Inspection: Negative for abdominal distention Auscultation: normoactive bowel sounds Palpation: soft and rebound tenderness present; Negative for tender, guarding, rigid, hernia, mass or pulsatile mass Back/Spine no CVA tenderness General Back: Negative for CVA tenderness Cervical Spine: Negative for cervical spine tenderness Thoracic Spine / Upper Back: Negative for thoracic spinal tenderness Lumbar Spine / Lower Back: Negative for lumbar spinal tenderness Coccyx: Negative for other Extremity full ROM General Extremety ED: Negative for edema or tenderness General Extremity: Negative for edema Neuro CN's II-XII intact bilaterally and moves all extremities Sensorium / Orientation: alert, oriented to person, oriented to place and oriented to time; Negative for orientation impaired, confused or lethargic Motor Exam: strength 5/5 throughout Psych mental status grossly normal and thought process normal Appearance: Negative for unkempt Attitude: No agitated Mood & Affect: Negative for depressed, anxious or tearful Skin no wounds General Skin Exam: Negative for jaundice or pallor Lesions: no lesions Rashes: no rashes Trauma: Negative for abrasion Nails: Negative for discolored MDM MDM MDM Narrative Medical decision making narrative: 73-year-old female history of constipation. History of peritoneal dialysis. Screening labs to be obtained. KUB to determine if this is constipation versus other etiologies. I believe she needs a CAT scan initially. Exam is benign. Repeat exam at 9:16 PM. Patient doing well. Abdomen benign. It is nondistended. Nontender. We went over her test results. She has a chronic baseline anemia consistent with her chronic kidney failure. The plain x-ray showed stool in the rectum consistent with constipation. Radiologist was concerned for possible colonic ileus. CAT scan being obtained. She also be given a soapsuds enema after the CAT scan. Enema was done prior to the CAT scan. Patient had a large bowel movement. Currently her abdomen is benign. She really been benign or intact emergency department course. Due to the concern by radiology for colonic ileus CAT scan is being obtained that will be checked out to the overnight physician. If the CAT scan has no significant acute abnormality she will be discharged home and treated as constipation. History & Record Review Discussion w/independent historian: Patient and Family Lab Data Attestation: I reviewed the patient's lab results. Lab results narrative: CBC shows white count 12.6. H&H 9.0 and 29. She is a baseline anemia from her end-stage renal disease. Platelet count 235. Electrolytes show sodium 135. Gap of 10. BUN and creatinine of 67 and 6.2 consistent with her end-stage renal disease. Glucose 103. Abdominal x-ray shows constipation and colonic ileus. Increased stool in the rectum. Labs: Laboratory Results - last 24 hr 05/22/23 19:05 WBC 12.6 H RBC 3.23 L Hgb 9.0 L Hct 29.9 L MCV 92.6 MCH 27.9 MCHC 30.1 L RDW Std Deviation 46.2 H RDW Coeff of [place] 13.6 Plt Count 235 MPV 11.8 Immature Gran % (Auto) 0.600 Neut % (Auto) 84.4 H Lymph % (Auto) 8.8 L [place] % (Auto) 5.7 Eos % (Auto) 0.2 Baso % (Auto) 0.3 Absolute Neuts (auto) 10.6 H Absolute Lymphs (auto) 1.10 Nucleated RBC % 0 Sodium 135 L Potassium 4.8 Chloride 102 Carbon Dioxide 23.0 Anion Gap 10 BUN 67 H Creatinine 6.29 H Est GFR (MDRD) Af Amer 8 L Est GFR (MDRD) Non-Af 7 L BUN/Creatinine Ratio 10.7 Glucose 103 Calcium 10.0 Radiography Chest X-Ray - ED: Read by ED Physician and Read by Radiologist Diagnostic Testing: Clinical Impression(s) from Imaging Studies KUB X-Ray 05/22/23 20:05 IMPRESSION: Increased stool and colonic ileus Electronically Signed: Sagn Guadalupe MD at 20:41 EDT , KUB single view interpreted by myself the radiologist shows increased rectal stool. Colonic ileus. No air-fluid levels. Discharge Plan Triage Chief Complaint: Abd Pain Other Complaint: Constipation ED Provider: Dez Chaudhari Dx/Rx/DC Orders Clinical Impression: Acute constipation Instructions: ED Constipation (Adult) Prescriptions: No Action carvedilol 3.125 mg tablet 3.125 mg PO DAILY Qty: 90 3RF clopidogrel 75 mg tablet 75 mg PO DAILY Qty: 90 3RF atorvastatin 40 mg tablet 40 mg PO QAM magnesium oxide 400 mg magnesium Tablet 400 mg PO DAILY mecobalamin (vitamin B12) [B12 Active] 1,000 mcg Tablet,Chewable 1,000 mcg PO BID potassium chloride 20 mEq tablet,ER particles/crystals 10 meq PO BID sodium bicarbonate 650 mg tablet 650 mg PO TID Patient Comments: TAKE 2 TABLETS BY MOUTH THREE TIMES DAILY ergocalciferol (vitamin D2) [Vitamin D2] 1,250 mcg (50,000 unit) Capsule 1,250 mcg PO QWEEK calcitriol 0.5 mcg capsule 1 mcg PO DAILY paroxetine HCl 20 mg tablet 20 mg PO DAILY Patient Comments: TAKE 1 TABLET BY MOUTH DAILY FOR 7 DAYS then increase to 1&1/2 TABLETS DAILY THEREAFTER aspirin 81 mg tablet,delayed release (DR/EC) 81 mg PO BREAKFAST Primary Care Provider: Jewell Bowens Referrals: Jewell Bowens DO [Primary Care Provider] - As Needed Activity Restrictions/Additional Instructions: Plenty of fluids and rest. Plenty of fruits, vegetables and fiber to help you with your bowel movements. Stool softener as needed. Follow-up with your doctor if not improving. Return to the emergency department if you develop increasing abdominal pain, fever or intractable vomiting. Disposition Disposition: Home, Self Care
[2023-05-22] MEDS: Ondansetron ODT 4 MG Tablet PO (18:42)
[2023-05-22 19:14] LABS: Absolute Neutrophil Count 10.6 X10^3/uL (2.0-7.7); Basophil# 0.04 X10^3/uL; Basophil% 0.3 % (0-1); Eosinophil# 0.02 X10^3/uL; Eosinophils% 0.2 % (0-5); Hematocrit 29.9 % (37-47); Lymphocyte % 8.8 % (19-41); Mean Corp Hgb Conc 30.1 g/dL (32-36); Mean Corpuscular Hgb 27.9 pg (27.0-32.0); Mean Corpuscular Volume 92.6 fL (81-99); Mean Platelet Vol. 11.8 fl (6.2-12.0); Monocyte# 0.72 X10^3/uL; Monocyte% 5.7 % (0-10); NRBC Flagged by Analyzer 0 % (0-5); Neutrophil # 10.59 X10^3/uL (2.7-7.7); Neutrophil % 84.4 % (47-70); Platelet Count 235 K/mm3 (150-450); RBC Distribution Width CV 13.6 % (11.6-14.6); RBC Distribution Width SD 46.2 fl (35.1-43.9); Red Blood Count 3.23 M/mm3 (4.2-5.4); White Blood Count 12.6 K/mm3 (4.4-11.0)
[2023-05-22 19:30] LABS: Anion Gap 10 (5-15); BUN 67 mg/dL (7-18); BUN/Creat Ratio 10.7 RATIO (10-20); Chloride 102 mmol/L (98-107); Creatinine, Serum 6.29 mg/dL (0.55-1.02); EST Glomerular Filtration Rate 7 mL/min (>60); Est Glom Filt Rate - Afr Amer 8 mL/min (>60); Glucose 103 mg/dL (74-106); Potassium 4.8 mmol/L (3.5-5.1); Sodium Level 135 mmol/L (136-145)
[2023-05-22] MEDS: Morphine 4 MG/ML Syringe 6 MG IM (19:49)
--- NOTE | 2023-05-22 20:05 | RAD_ITS ---
STUDY: X-RAY - ABDOMEN/PELVIS REASON FOR EXAM: Female, 73 years old. constipation TECHNIQUE: Single AP view of the abdomen / pelvis. COMPARISON: January 30, 2022 report only without images FINDINGS: Vascular calcification. Multiple calcifications left upper quadrant. Gas throughout the colon. Increased stool. The visualized liver, spleen and kidneys are grossly normal in size and morphology. Normal soft tissue structures. Normal visualized osseous structures. RAD/Abdomen Single View IMPRESSION: Increased stool and colonic ileus Electronically Signed: Sang Guadalupe MD at 20:41 EDT ,
[2023-05-22 20:29] VITALS: BP 119/69; PULSE 67; RESP 16; O2SAT 97
--- NOTE | 2023-05-22 21:18 | CT_ITS ---
STUDY: CT ABDOMEN AND PELVIS WITH CONTRAST REASON FOR EXAM: Female, 73 years old. ileus RADIATION DOSAGE (If Supplied By Facility): CTDIvol = ( 10.07 ) mGy, DLP = ( 591.78 ) mGycm TECHNIQUE: Transaxial images were obtained from the dome of the diaphragm to the symphysis pubis without oral contrast. IV 75 mL Isovue-370 was administered. Sagittal and coronal images were reconstructed. Individualized dose optimization techniques were used for this CT. COMPARISON: CT abdomen and pelvis December 17, 2021. FINDINGS: The visualized lung bases are unremarkable. Calcific coronary artery disease. Normal liver. Gallstone. Normal spleen. Normal pancreas. Normal bilateral adrenal glands. Bilateral renal atrophy. 1.9 cm and 2.9 cm simple left renal cyst. No further follow-up required as it appears simple/benign. Normal visualized stomach. Normal small intestine. Increased stool throughout the colon. Circumferential thickening of the rectum. Appendix not identified. Small amount of free air and fluid in the upper abdomen. Left lower quadrant Percutaneous peritoneal catheter terminates in the peritoneal cavity and the right lower quadrant. Calcified plaque along the aorta and its branches. Normal inferior vena cava. Normal retroperitoneum. Normal urinary bladder. Possible Fluid-filled uterus. Normal abdominal wall. Diffuse demineralization. Retrolisthesis L5-S1. Slight anterolisthesis L4-5. Slight anterior wedging at T11-T12 and L1. CT/Abdomen/Pelvis W IV Cont ONLY IMPRESSION: Cholelithiasis. Increased stool. Small amount of new intraperitoneal fluid and free air presumably related to the stable peritoneal catheter. Clinical correlation required. Renal atrophy. Possible proctitis. Fluid-filled uterus. Pelvic ultrasound would be helpful for further characterization. Electronically Signed: Sang Guadalupe MD at 0:03 EDT ,
[2023-05-22 22:18] VITALS: BMI 19.1
== END 2023-05-23 01:06 | disposition home or self-care (01) ==
PROVIDERS: Emergency Provider Emergency Medicine; PCP Family Medicine; Visit Provider Emergency Medicine
DX: K59.00 Constipation, unspecified (principal); Z99.2 Dependence on renal dialysis; N18.6 End stage renal disease; I25.10 Atherosclerotic heart disease of native coronary artery without angina pectoris; Z95.5 Presence of coronary angioplasty implant and graft
CPT/HCPCS: 36415; 74018; 74177; 80048; 85025; 99285; Q9967; A4216

== ENCOUNTER 2023-06-07 21:11 | Inpatient (IN) | payer MEDICARE, OTHER, SELFPAY ==
[2022-05-22 12:03] VITALS: BMI 22.2
[2023-06-07 21:12] VITALS: BP 107/63; PULSE 74; RESP 16; TEMP 36.8; O2SAT 100
[2023-06-07 21:30] LABS: Absolute Lymphocyte Count 1.74 X10^3/uL (0.83-4.51); Absolute Neutrophil Count 7.3 X10^3/uL (2.0-7.7); Basophil# 0.06 X10^3/uL; Basophil% 0.6 % (0-1); Eosinophil# 0.08 X10^3/uL; Eosinophils% 0.8 % (0-5); Hematocrit 27.9 % (37-47); Hemoglobin 8.7 g/dL (12.0-15.0); Lymphocyte # 1.74 X10^3/ul (0.83-4.51); Lymphocyte % 17.8 % (19-41); Mean Corp Hgb Conc 31.2 g/dL (32-36); Mean Corpuscular Hgb 28.1 pg (27.0-32.0); Mean Platelet Vol. 11.2 fl (6.2-12.0); Monocyte# 0.55 X10^3/uL; Monocyte% 5.6 % (0-10); NRBC Flagged by Analyzer 0 % (0-5); Neutrophil # 7.28 X10^3/uL (2.7-7.7); Neutrophil % 74.8 % (47-70); Platelet Count 225 K/mm3 (150-450); RBC Distribution Width CV 13.6 % (11.6-14.6); RBC Distribution Width SD 44.7 fl (35.1-43.9); White Blood Count 9.8 K/mm3 (4.4-11.0)
--- NOTE | 2023-06-07 21:34 | RAD_ITS ---
STUDY: X-RAY CHEST REASON FOR EXAM: Female, 73 years old. SOB TECHNIQUE: Single AP portable view of the chest. COMPARISON: 10/10/2022. FINDINGS: The lungs are clear and expanded. No infiltrates or effusions. There is no demonstrated pleural abnormality. Normal size heart. Normal mediastinum and mame. Normal visualized pulmonary arteries. Normal visualized aortic arch and descending thoracic aorta. Normal visualized thoracic spine. Normal visualized ribs, clavicles, and shoulders. There is no demonstrated abnormality of the visualized soft tissue structures of the upper abdomen. RAD/Chest 1 View (Portable) IMPRESSION: No definite acute or significant abnormality seen. Electronically Signed: Bandar Allen MD at 21:43 EDT ,
[2023-06-07 21:46] LABS: Anion Gap 8 (5-15); BUN 47 mg/dL (7-18); BUN/Creat Ratio 7.1 RATIO (10-20); Calcium,Total 10.3 mg/dL (8.5-10.1); Chloride 98 mmol/L (98-107); Creatinine, Serum 6.64 mg/dL (0.55-1.02); EST Glomerular Filtration Rate 7 mL/min (>60); Est Glom Filt Rate - Afr Amer 8 mL/min (>60); Glucose 106 mg/dL (74-106); Sodium Level 134 mmol/L (136-145)
--- NOTE | 2023-06-07 23:16 | EDS_ITS ---
HPI History of Present Illness Chief Complaint: General Illness Detail of Chief Complaint: Decreased oral intake. Weight loss. This has been going on for weeks. Informant: patient and family Onset/Context/Timing Onset: Weeks Context: Gradual Onset Timing: Continuous Current Severity: Mild Maximum Severity: Mild Narrative Narrative: 73-year-old female history of end-stage renal disease, anemia, CAD with a stent. Gastric bypass in 1970. Patient's not been taking much oral intake and speci fically food for the last several weeks. She has had at least a 20 pound weight loss according to her daughter. She is just generally weak and has not been feeling well. No dysuria. No fever. No vomiting. She was having issues of constipation but that was resolved after an ER visit. She has gotten so weak she is having difficulty making it around the house. Prior similar symptoms: Yes Recent Illness/Hospitalization: No PFSH PFSH Medical History Acute kidney injury superimposed on CKD Ambulates with cane Anemia Anxiety Arterial steal syndrome Arthritis Atherosclerosis of coronary artery of [place] heart without angina pectoris Back pain Chronic renal failure, stage 5 Depression Dietary restriction Discoloration of skin Easy bruising ESRD (end stage renal disease) on dialysis Gastric reflux History of edema History of renal dialysis History of renal disease History of steroid therapy History of stress test Hypertension Peritoneal dialysis catheter in place Post-menopausal Renal calculi Rheumatoid arthritis Seasonal allergies Shortness of breath on exertion Superficial thrombophlebitis of arm Urinary tract infection Vascular dialysis catheter in place Wears glasses Home Medications magnesium oxide 400 mg PO DAILY supplement 12/17/21 [History Last Taken 10/10/22] mecobalamin (vitamin B12) 1,000 mcg chewable tablet (B12 Active) 2,000 mcg PO DAILY vitamin 12/17/21 [History Last Taken 10/10/22] ergocalciferol (vitamin D2) 1,250 mcg (50,000 unit) capsule (Vitamin D2) 1,250 mcg PO QWEEK vitamin 01/06/22 [History Last Taken 10/04/22] sodium bicarbonate 650 mg tablet 650 mg PO TID supplement 01/06/22 [History Last Taken 10/10/22] aspirin 81 mg tablet,delayed release 81 mg PO BREAKFAST heart health 10/10/22 [History Last Taken 10/10/22] calcitriol 0.5 mcg capsule 1 mcg PO DAILY bone health 12/21/22 [History Last Taken Unknown] carvedilol 3.125 mg tablet 3.125 mg PO DAILY heart #90 tabs 12/21/22 [Rx Last Taken Unknown] clopidogrel 75 mg tablet 75 mg PO DAILY blood thinner #90 tabs 12/21/22 [Rx Last Taken Unknown] potassium chloride 20 mEq tablet,extended release(part/cryst) 40 meq PO BID supplement 12/21/22 [History Last Taken Unknown] atorvastatin 40 mg tablet 40 mg PO QAM cholesterol 04/06/23 [History Last Taken Unknown] paroxetine HCl 20 mg tablet 20 mg PO DAILY depression 04/06/23 [History Last Taken Unknown] Allergy/AdvReac Type Severity Reaction Status Date / Time adhesive tape Allergy Rash Verified 06/07/23 21:14 amoxicillin [From Augmentin] Allergy Swelling Verified 06/07/23 21:14 srinivasan Allergy Itching Verified 06/07/23 21:14 cephalexin [From Keflex] Allergy Swelling Verified 06/07/23 21:14 clavulanic acid Allergy Swelling Verified 06/07/23 21:14 [From Augmentin] latex Allergy Rash Verified 06/07/23 21:14 Penicillins [PCN] Allergy Swelling Verified 06/07/23 21:14 sulfamethoxazole Allergy rash,swellling, Verified 06/07/23 21:14 [From Bactrim] itching trimethoprim [From Bactrim] Allergy rash,swellling, Verified 06/07/23 21:14 itching walnut Allergy Itching Verified 06/07/23 21:14 Family History Mother Heart disease Diabetes Hypertension Father Dementia Surgical History H/O hernia repair history Left AV Fistula Creation (~05/03/20) History of colonoscopy History of coronary artery stent placement (05/10/22) History of esophagogastroduodenoscopy (EGD) Hx of cystoscopy Hx of cystoscopy S/P bypass gastroenterostomy S/P coronary artery stent placement S/P hemorrhoidectomy Social History household members: other details: Lives with her daughter. Smoking Status: Never smoker alcohol intake: never substance use type: does not use ROS ROS ED ROS Narrative Generalized weakness. Review of Systems ROS Unobtainable: Denies due to encephalopathy Constitutional Constitutional ED: Denies chills or fever(s) Eyes Eyes: Denies blurry vision ENT ENT ED: Denies ear pain Cardiovascular Cardiovascular: Denies chest pain Respiratory/Chest Respiratory/Chest: Denies cough or dyspnea Gastrointestinal Gastrointestinal: Denies abdominal pain Genitourinary Genitourinary ED: Denies dysuria Musculoskeletal Musculoskeletal: Denies arthralgias Integumentary Denies abscess Neurologic Neurologic: Denies headache(s) Psychiatric Psychiatric: Denies anxiety Endocrine Endocrinology: Denies cold intolerance Hematologic/Lymphatic Hematologic/Lymphatic: Reports anemia Allergic/Immunologic Allergic/Immunologic ED: Denies mouth swelling, tongue swelling or urticaria EXAM Physical Exam Narrative Exam Narrative: 73-year-old female no acute distress. Vital signs stable afebrile. Pulse ox 100% on room air no signs hypoxia. HEENT exam moist mucous membranes. Neck nontender no JVD. Lungs clear to auscultation bilaterally. Heart regular rhythm rate about 75 no murmur. Chest wall nontender. Abdomen soft nondistended. Normal bowel sounds no peritoneal signs. No significant tenderness. No distention. No obstruction. Moving all 4 extremities. Nontender no edema. Neurologically she is awake and alert with no focal motor deficits. She just seems overall weak. Const Vital Signs: 06/07/23 21:12 06/07/23 23:35 06/07/23 23:35 Temperature 98.3 F Temperature Source Temporal Pulse Rate 74 Respiratory Rate 16 Respiratory Effort Respiratory Pattern Blood Pressure 107/63 Blood Pressure Mean 77 Pulse Ox 100 Oxygen Delivery Method Room Air Room Air Room Air 06/07/23 23:36 06/07/23 23:39 06/08/23 01:09 Temperature Temperature Source Pulse Rate 74 Respiratory Rate 16 18 Respiratory Effort Normal Respiratory Pattern Normal Blood Pressure Blood Pressure Mean Pulse Ox 98 Oxygen Delivery Method Room Air Room Air Positive well nourished and well developed; Negative for obese, cachectic, contractures or unkempt General Appearance ED: well developed and NAD; Negative for unkempt, cachectic, contractures, cyanotic, diaphoretic or pallor Nutritional Appearance: Negative for cachectic or obese HEENT Reports moist mucous membranes; Denies dry mucous membranes Negative for trauma or tenderness Mouth ED: No dry mucous membranes Mouth: No dry mucous membranes Eyes PERRL and EOMs intact bilaterally General Eye ED: Negative for pale conjunctiva or scleral icterus Neck no lymphadenopathy, supple and no JVD General: Negative for tenderness Lymph Lymphatic: Negative for other Chest Wall inspection of chest normal and palpation of chest normal Chest: Negative for other Resp normal respiratory effort and clear to auscultation bilaterally Effort and Inspection: Negative for retractions Auscultation: Negative for rales, rhonchi or wheezes Cardio regular rate, regular rhythm, S1 normal heart sound, S2 normal heart sound and no murmurs GI normal to inspection, nondistended, normoactive bowel sounds, non-tender, non- distended and no masses Auscultation: normoactive bowel sounds Palpation: soft; Negative for tender or guarding Bladder / Kidney Exam: No other Back/Spine no CVA tenderness General Back: Negative for CVA tenderness Cervical Spine: Negative for cervical spine tenderness Thoracic Spine / Upper Back: Negative for thoracic spinal tenderness Lumbar Spine / Lower Back: Negative for lumbar spinal tenderness Extremity normal to inspection General Extremety ED: Negative for edema or tenderness General Extremity: Negative for edema Neuro oriented x3 and CN's II-XII intact bilaterally Sensorium / Orientation: alert; Negative for orientation impaired Sensory Exam: No sensory level loss detected Motor Exam: strength 5/5 throughout Psych mental status grossly normal Appearance: Negative for unkempt Attitude: No agitated Mood & Affect: Negative for depressed, anxious or tearful Skin no rashes or lesions noted, no wounds and skin turgor normal General Skin Exam: elasticity normal; Negative for jaundice or pallor Lesions: No lesion noted Rashes: No rashes noted Trauma: Negative for abrasion Wounds: Negative for wounds noted MDM MDM MDM Narrative Medical decision making narrative: 73-year-old failure to thrive. She will get screening labs. Patient family feel she needs to be admitted I will speak to the hospitalist whenever they returns. Repeat exam unchanged at 1:20 AM. Patient is receiving some Zofran for nausea. She will be admitted. She does do peritoneal dialysis and states that she can do that herself. I do have nephrology on page also. History & Record Review Discussion w/independent historian: Patient and Family Lab Data Attestation: I reviewed the patient's lab results. Lab results narrative: CBC shows a white count 9.8. H&H 8.7 and 27.9 which is her baseline anemia. Platelets 225. Electrolytes show sodium 134. Gap of 8. She has end-stage renal disease her BUN and creatinine are 47 and 6.6. Glucose 106. Chest ray unremarkable. Hepatic enzymes show a normal total and direct bilirubin. AST is up at 81. ALT 232. Alk phos 153. Hospitalist is ordering a ultrasound for the morning. Urinalysis shows 10-25 white cells but only rare bacteria no nitrates. I will send a culture. Labs: Laboratory Results - last 24 hr 06/07/23 06/07/23 21:24 23:53 WBC 9.8 RBC 3.10 L Hgb 8.7 L Hct 27.9 L MCV 90.0 MCH 28.1 MCHC 31.2 L RDW Std Deviation 44.7 H RDW Coeff of [place] 13.6 Plt Count 225 MPV 11.2 Immature Gran % (Auto) 0.400 Neut % (Auto) 74.8 H Lymph % (Auto) 17.8 L Saline % (Auto) 5.6 Eos % (Auto) 0.8 Baso % (Auto) 0.6 Absolute Neuts (auto) 7.3 Absolute Lymphs (auto) 1.74 Nucleated RBC % 0 Sodium 134 L Potassium 4.0 Chloride 98 Carbon Dioxide 28.0 Anion Gap 8 BUN 47 H Creatinine 6.64 H Est GFR (MDRD) Af Amer 8 L Est GFR (MDRD) Non-Af 7 L BUN/Creatinine Ratio 7.1 L Glucose 106 Calcium 10.3 H Total Bilirubin 0.40 Direct Bilirubin 0.24 AST 81 H ALT 232 H Alkaline Phosphatase 153 H Total Protein 5.5 L Albumin 2.6 L Globulin 2.9 Urine Color Yellow Urine Clarity Clear Urine pH 8.0 Ur Specific Elizabeth 1.015 Urine Protein 30 H Urine Glucose (UA) Normal Urine Ketones Negative Urine Occult Blood Negative Urine Nitrite Negative Urine Bilirubin 3 H Urine Urobilinogen Normal Ur Leukocyte Esterase 500 H Urine RBC 0 SEEN Urine WBC 10-25 SEEN Ur Squamous Epith Cells 0-5 SEEN Urine Bacteria RARE Urine Mucus 0 SEEN Radiography Chest X-Ray - ED: 1 View, Read by ED Physician, Read by Radiologist, Normal, Heart, Lungs, Mediastinum, No Acute Disease and Chronic Changes Diagnostic Testing: Clinical Impression(s) from Imaging Studies Chest X-Ray 06/07/23 21:34 IMPRESSION: No definite acute or significant abnormality seen. Electronically Signed: Bandar Allen MD at 21:43 EDT , Chest x-ray, portable, single view shows no acute abnormality. Normal cardiac silhouette mediastinum. Normal lung ribera. No infiltrate. No effusions. Interpreted both by myself and radiologist. Rhythm Strip Rhythm Strip: Sinus Rhythm Rate: 63 Ectopy: PVC(s) and PAC(s) EKG Initial EKG: Attestation: I personally reviewed and interpreted this EKG as follows: Interpretation: Sinus Rhythm and No Acute Injury Pattern Comments: Normal sinus rhythm rate of 63. PVCs. No acute signs of CA or ischemia. Discharge Plan Dx/Rx/DC Orders Clinical Impression: Generalized weakness, History of end stage renal disease, Adult failure to thrive, History of anemia, Hx of gallstones, Abnormal weight loss, Elevated liver enzymes Disposition Disposition: Acute Care Hospital [facility]
[2023-06-07 23:38] VITALS: BMI 18.0
[2023-06-07 23:39] VITALS: RESP 16
[2023-06-07 23:44] LABS: AST(SGOT) 81 U/L (15-37); Alanine Aminotransfer ALT/SGPT 232 U/L (13-56); Albumin, Serum 2.6 g/dL (3.2-5.0); Alkaline Phosphatase 153 U/L (45-117); Bilirubin, Direct 0.24 mg/dL (0.00-0.30); Globulin 2.9 g/dL (2.2-4.2); Protein, Total 5.5 g/dL (6.4-8.2)
[2023-06-07 23:58] LABS: Mucous, Urine 0 SEEN /hpf (<or=2+); Red Blood Cells-Urine 0 SEEN /hpf (0-5)
[2023-06-07 23:59] LABS: Glucose, Dipstick Normal (Normal); Ketone-Dipstick Negative (Negative); Leukocyte Esterase-Dipstick 500 /ul (Negative); Nitrite-Dipstick Negative (Negative); Occult Blood-Urine Negative /ul (Negative); Protein-Dipstick 30 mg/dl (Negative); Specific Gravity, Urine 1.015 (1.002-1.030); Urine Urobilinogen Normal (Normal)
[2023-06-08 00:01] LABS: Color, Urine Yellow (Yellow); Urine Bilirubin Dipstick 3 mg/dL (Negative); Urine Clarity Clear (Clear)
[2023-06-08 00:23] LABS: White Blood Cells 10-25 SEEN /hpf (0-5)
[2023-06-08 00:24] LABS: Bacteria RARE /hpf (None Seen); Squamous Epithelial Cells - UA 0-5 SEEN /hpf (5-10)
[2023-06-08 01:09] VITALS: PULSE 74; RESP 18; O2SAT 98
[2023-06-08] MEDS: Ondansetron 4 MG/2 ML Vial IV (01:19)
--- NOTE | 2023-06-08 01:42 | PCM.HP.STD ---
[facility] - General General Date of Admission: 06/08/23 Date of Service: 06/08/23 Chief Complaint: weight loss/generalized weakness/failure to thrive HPI Narrative CHRISTIANO AWAD, is a 73 F who presented to the emergency department at [facility] on 06/08/2023 with decreased oral intake, weight loss, and weakness. Patient has a history of end-stage renal disease and is on peritoneal dialysis. The patient states that she weighed about 190 pounds 4 years ago when she started PD however lost a considerable amount of weight but indicates that over the last 5 weeks she has had considerable weight loss of at least 20 pounds. She is not taking in much orally and states that food makes her nauseated if she tries to eat it. She denies that it causes any abdominal pain. She reports generalized weakness with several falls recently and reports that she is fairly fatigued. She has had no fever or chills, she denies any vomiting. She does states she has chronic constipation but this resolved after recent ER visit. She does have history of gastric bypass surgery and 1971. She is so weak she is having difficulty moving around the house. Vital signs on presentation showed temperature of 98.3, heart rate 74, blood pressure is 107/63, respiratory rate 16 and oxygen saturations are 100% on room air. CBC shows a chronic stable anemia with normal white count and platelet count. Chemistry panel shows mild hyponatremia with a sodium 134 which appears to be chronic. Elevated BUN/creatinine which are at baseline and normal glucose. Her calcium is elevated at 10.3. They had been normal up until early May and looks like her baseline ran 8-9. Her liver functions are abnormal with a normal bilirubin however ALT is 232 and AST was 81 with an alk phos of 153 all of which are newly elevated. Her urine was not consistent with infection. Chest x-ray is unremarkable. She had a recent CT of her abdomen and pelvis which showed calcific coronary artery disease, cholelithiasis, bilateral renal atrophy, normal stomach, small intestines and increased stool throughout the colon with circumferential thickening of the rectum. PD catheter was identified. [facility] Medical History Acute kidney injury superimposed on CKD Ambulates with cane Anemia Anxiety Arterial steal syndrome Arthritis Atherosclerosis of coronary artery of [place] heart without angina pectoris Back pain Chronic renal failure, stage 5 Depression Dietary restriction Discoloration of skin Easy bruising ESRD (end stage renal disease) on dialysis Gastric reflux History of edema History of renal dialysis History of renal disease History of steroid therapy History of stress test Hypertension Peritoneal dialysis catheter in place Post-menopausal Renal calculi Rheumatoid arthritis Seasonal allergies Shortness of breath on exertion Superficial thrombophlebitis of arm Urinary tract infection Vascular dialysis catheter in place Wears glasses Home Medications magnesium oxide 400 mg PO DAILY supplement 12/17/21 [History Last Taken 10/10/22] mecobalamin (vitamin B12) 1,000 mcg chewable tablet (B12 Active) 2,000 mcg PO DAILY vitamin 12/17/21 [History Last Taken 10/10/22] ergocalciferol (vitamin D2) 1,250 mcg (50,000 unit) capsule (Vitamin D2) 1,250 mcg PO QWEEK vitamin 01/06/22 [History Last Taken 10/04/22] sodium bicarbonate 650 mg tablet 650 mg PO TID supplement 01/06/22 [History Last Taken 10/10/22] aspirin 81 mg tablet,delayed release 81 mg PO BREAKFAST heart health 10/10/22 [History Last Taken 10/10/22] calcitriol 0.5 mcg capsule 1 mcg PO DAILY bone health 12/21/22 [History Last Taken Unknown] carvedilol 3.125 mg tablet 3.125 mg PO DAILY heart #90 tabs 12/21/22 [Rx Last Taken Unknown] clopidogrel 75 mg tablet 75 mg PO DAILY blood thinner #90 tabs 12/21/22 [Rx Last Taken Unknown] potassium chloride 20 mEq tablet,extended release(part/cryst) 40 meq PO BID supplement 12/21/22 [History Last Taken Unknown] atorvastatin 40 mg tablet 40 mg PO QAM cholesterol 04/06/23 [History Last Taken Unknown] paroxetine HCl 20 mg tablet 20 mg PO DAILY depression 04/06/23 [History Last Taken Unknown] Allergy/AdvReac Type Severity Reaction Status Date / Time adhesive tape Allergy Rash Verified 06/07/23 21:14 amoxicillin [From Augmentin] Allergy Swelling Verified 06/07/23 21:14 srinivasan Allergy Itching Verified 06/07/23 21:14 cephalexin [From Keflex] Allergy Swelling Verified 06/07/23 21:14 clavulanic acid Allergy Swelling Verified 06/07/23 21:14 [From Augmentin] latex Allergy Rash Verified 06/07/23 21:14 Penicillins [PCN] Allergy Swelling Verified 06/07/23 21:14 sulfamethoxazole Allergy rash,swellling, Verified 06/07/23 21:14 [From Bactrim] itching trimethoprim [From Bactrim] Allergy rash,swellling, Verified 06/07/23 21:14 itching walnut Allergy Itching Verified 06/07/23 21:14 Family History Mother Heart disease Diabetes Hypertension Father Dementia Surgical History H/O hernia repair history Left AV Fistula Creation (~05/03/20) History of colonoscopy History of coronary artery stent placement (05/10/22) History of esophagogastroduodenoscopy (EGD) Hx of cystoscopy Hx of cystoscopy S/P bypass gastroenterostomy S/P coronary artery stent placement S/P hemorrhoidectomy Social History household members: other details: Lives with her daughter. Smoking Status: Never smoker alcohol intake: never substance use type: does not use ROS Constitutional Constitutional: Reports anorexia, change in weight, fatigue and weakness; Denies chills, fever(s), malaise, night sweats or other Eyes Eyes: Denies blurry vision, change in eye color, change in vision, discharge from eye(s), double vision, erythema, eye pain, loss of vision or other ENT HEENT: Denies abnormal hearing, dysphagia, ear pain, epistaxis, headache(s), hearing loss, nasal congestion, nasal discharge, post nasal drip, sinus pressure, sore throat or other Cardiovascular Cardiovascular: Denies chest pain, claudication, dyspnea on exertion, edema, lightheadedness, orthopnea, palpitations, paroxysmal nocturnal dyspnea, rapid heart rate, syncope or other Respiratory/Chest Respiratory/Chest: Denies cough, dyspnea, excessive phlegm production, hemoptysis, productive cough, shortness of breath at rest, shortness of breath with exertion, wheezing or other Gastrointestinal Gastrointestinal: Reports abdominal pain, constipation and nausea; Denies coffee ground emesis, diarrhea, dyspepsia, hematemesis, hematochezia, loose stools, melena, vomiting or other Genitourinary Genitourinary: Denies burning urination, difficulty urinating, dysuria, hematuria, nocturia, urinary frequency, urinary hesitancy, urinary incontinence, urinary urgency or other Musculoskeletal Musculoskeletal: Denies arthralgias, back pain, joint pain, joint stiffness, joint swelling, myalgias, neck pain or other Neurologic Neurologic: Denies abnormal gait, abnormal speech, confusion, disequilibrium, dizziness, focal weakness, headache(s), numbness, paresthesias, seizure-like activity, seizures, syncope, tingling, tremor(s) or other Psychiatric Psychiatric: Reports depression; Denies anxiety, homicidal ideation, suicidal ideation or other Endocrine Endocrinology: Denies change in body appearance, cold intolerance, excessive sweating, heat intolerance, polydipsia, polyuria or other Hematologic/Lymphatic Hematologic/Lymphatic: Denies anemia, easy bleeding, easy bruising, lymphadenopathy or other Allergic/Immunologic Allergic/Immunologic: Denies rhinitis, hives, eczemia, asthma or other Vital Signs Vital Signs Vital Signs: 06/07/23 21:12 06/07/23 23:35 06/07/23 23:35 Temperature 98.3 F Temperature Source Temporal Pulse Rate 74 Respiratory Rate 16 Respiratory Effort Respiratory Pattern Blood Pressure 107/63 Blood Pressure Mean 77 Pulse Ox 100 Oxygen Delivery Method Room Air Room Air Room Air 06/07/23 23:36 06/07/23 23:39 06/08/23 01:09 Temperature Temperature Source Pulse Rate 74 Respiratory Rate 16 18 Respiratory Effort Normal Respiratory Pattern Normal Blood Pressure Blood Pressure Mean Pulse Ox 98 Oxygen Delivery Method Room Air Room Air Weight Weight: 52.2 kg Body Mass Index (BMI) 18.0 Physical Exam Const alert, oriented x3 and no apparent distress; Negative for average body habitus, healthy appearing or well nourished Constitutional Narrative: Frail, older, white female, lying in bed, appears comfortable, nontoxic General Appearance: cooperative HEENT normocephalic, head/scalp atraumatic, hearing grossly normal bilaterally and moist oral mucous membranes HEENT Narrative: Temporal wasting, Mallampati 1, no thrush, dentition is fair for age Eyes PERRL and EOMs intact bilaterally; Negative for conjunctivae normal Eyes Narrative: Mild conjunctival pallor bilaterally, no scleral icterus Neck no lymphadenopathy, supple, no JVD and no carotid bruits Neck Narrative: Trachea midline, no thyroid enlargement Resp normal respiratory effort, no retractions, no use of accessory muscles and clear to auscultation bilaterally Auscultation: Negative for rales, rhonchi or wheezes Cardio regular rate, regular rhythm, S1 normal heart sound, S2 normal heart sound, no murmurs, no rub, no gallops and no clicks GI Negative for non-tender GI Narrative: Abdomen is soft, tenderness in right upper quadrant to central abdominal area, PD catheter in place and dressed-clean and dry, mesh in lower mid abdomen noted from previous hernia repair, significant extra skin and abdomen is scaphoid, bowel sounds are normal and abdomen is soft, no distention Extremity Extremity Narrative: Significant lean muscle mass reduction, no cyanosis or clubbing, no edema Skin no rashes or lesions noted, no wounds, skin turgor normal, no jaundice, no petechiae and no mottling Neuro oriented x3, CN's II-XII intact bilaterally, moves all extremities and no focal motor deficits Neuro Narrative: Severe generalized weakness Speech: speech normal Psych Negative for affect normal Psych Narrative: Affect is somewhat flattened mood slightly depressed however eye contact is good Results Lab / Micro Data Attestation: I reviewed the patient's lab results. 06/07/23 21:24 06/07/23 21:24 Labs: Laboratory Results - last 24 hr 06/07/23 21:24: WBC 9.8, RBC 3.10 L, Hgb 8.7 L, Hct 27.9 L, MCV 90.0, MCH 28.1, MCHC 31.2 L, RDW Std Deviation 44.7 H, RDW Coeff of [place] 13.6, Plt Count 225, MPV 11.2, Immature Gran % (Auto) 0.400, Neut % (Auto) 74.8 H, Lymph % (Auto) 17.8 L, [place] % (Auto) 5.6, Eos % (Auto) 0.8, Baso % (Auto) 0.6, Absolute Neuts (auto) 7.3, Absolute Lymphs (auto) 1.74, Nucleated RBC % 0, Sodium 134 L, Potassium 4.0, Chloride 98, Carbon Dioxide 28.0, Anion Gap 8, BUN 47 H, Creatinine 6.64 H, Est GFR (MDRD) Af Amer 8 L, Est GFR (MDRD) Non-Af 7 L, BUN/Creatinine Ratio 7.1 L, Glucose 106, Calcium 10.3 H, Total Bilirubin 0.40, Direct Bilirubin 0.24, AST 81 H, ALT 232 H, Alkaline Phosphatase 153 H, Total Protein 5.5 L, Albumin 2.6 L, Globulin 2.9 06/07/23 23:53: Urine Color Yellow, Urine Clarity Clear, Urine pH 8.0, Ur Specific [place] 1.015, Urine Protein 30 H, Urine Glucose (UA) Normal, Urine Ketones Negative, Urine Occult Blood Negative, Urine Nitrite Negative, Urine Bilirubin 3 H, Urine Urobilinogen Normal, Ur Leukocyte Esterase 500 H, Urine RBC 0 SEEN, Urine WBC 10-25 SEEN, Ur Squamous Epith Cells 0-5 SEEN, Urine Bacteria RARE, Urine Mucus 0 SEEN Micro: Microbiology 06/07/23 21:24 Nasal Secretion SARS-CoV-2 Antigen (Rapid) - Final Rhythm Strip Rhythm Strip: Sinus Rhythm Rate: 63 Ectopy: PVC(s) and PAC(s) Radiology Impression Chest X-Ray 06/07/23 21:34 IMPRESSION: No definite acute or significant abnormality seen. Electronically Signed: Bandar Allen MD at 21:43 EDT , Assessment & Plan Assessment/Plan (1) Elevated liver enzymes: (2) Abnormal weight loss: (3) Severe malnutrition: (4) Hypercalcemia: (5) Adult failure to thrive: PLAN: Plan Adult failure to thrive -Patient with decreased p.o. intake/generalized weakness/falls -Start Marinol twice daily to help stimulate appetite -Consult PT/OT -Case management/social work consult for probable placement requirements at discharge Elevated liver enzymes -When compared to previous they are markedly elevated and liver injury pattern with ALT being about 3 times AST and elevated alk phos -Bilirubin is normal -Known history of cholelithiasis we will check right upper quadrant ultrasound -Repeat CMP in a.m. Hypercalcemia -Patient has had elevated calcium at her last 2 metabolic panels -Previously calcium ran about 8 -Could be related to dehydration can however will pursue further work-up -Check vitamin D level -Check intact PTH -Check GGT with elevated alk phos -Recent CT of the abdomen pelvis was unremarkable -We will check CT chest for any signs of malignancy or lytic lesions Severe malnutrition -Patient has lost considerable amount of weight in the last 5 to 6 weeks -Patient reports about a 90 pound weight loss since she started hemodialysis about 4 years ago however she states recently her weight loss has been more precipitous -She states food just does not taste good and makes her nauseated if she tries to eat -We will add Marinol to see if we can stimulate her appetite -Add supplements -Dietitian consultation -Further work-up as above Chronic anemia secondary to renal disease -Continue any EPO supplementation per nephrology End-stage renal disease on PD -Patient reports that she and her daughter can facilitate PD here at this facility -No concern for peritonitis -Continue calcitriol -Continue oral bicarb -Consult nephrology Chronic constipation -Schedule stool softeners CAD/PVD/HTN/HPL -Continue aspirin -Continue Plavix -Continue carvedilol -Continue statin Vitamin D deficiency -Continue home vitamin D supplementation -Check vitamin D level with hypercalcemia Depression -Continue home paroxetine DVT prophylaxis -Heparin twice daily CODE STATUS -DNR CCA with no intubation as verified on admission Charges/Coding Visit Charges Inpatient E&M: 09779 Init Hosp L2
[2023-06-08 02:09] VITALS: BP 133/74; PULSE 70; RESP 17; TEMP 36.8; O2SAT 99
--- NOTE | 2023-06-08 02:41 | US_ITS ---
INDICATION: Transaminitis EXAMINATION: Ultrasound US Abdomen Limited (quadrant) TECHNIQUE: Coyne scale and color doppler imaging was performed of the right upper quadrant. COMPARISON: Prior studies dated: CT of the chest dated June 08, [address] of the abdomen and pelvis dated May 22, 2023 FINDINGS: LIVER: The liver parenchyma is heterogenous. No focal hepatic lesion. There is no free fluid. GALLBLADDER AND BILIARY TREE: There is a shadowing gallstone. There is a ring down artifact within the gallbladder fundus associated with minimal wall thickening. There is trace pericholecystic fluid. The proximal common bile duct measures 6.4 mm, which is within normal limits for the patient''s age. Songraphic Lau''s sign: Positive. PANCREAS: No focal abnormality is demonstrated in the pancreas. No pancreatic ductal dilatation. RIGHT KIDNEY: The right kidney measures 7.1 cm and is diffusely hyperechoic. There is no hydronephrosis. There is a nonobstructing 5.7 mm calculus. There is ascites present. US/Abdomen Limited IMPRESSION: Heterogenous liver suggestive of hepatic dysfunction. Cholelithiasis with trace pericholecystic fluid and a reported positive sonographic Lau''s sign, cannot exclude early cholecystitis. Common tail artifact arising from the gallbladder fundus may reflect adenomyomatosis. Electronically Signed: Sun Dick MD at 12:49 EDT ,
[2023-06-08 02:44] VITALS: BMI 16.5
--- NOTE | 2023-06-08 05:55 | CT_ITS ---
INDICATION: hypercalcemia dialysis with peritoneal catheter in place. EXAMINATION: CT CHEST WITHOUT CONTRAST - CT Chest W/O Contrast Injection TECHNIQUE: Helically acquired images were obtained of the chest. A radiation dose optimization technique was used for this scan. IV Contrast dosage and agent: None. RADIATION DOSAGE (If Supplied By Facility): CTDIvol = ( 6.62 ) mGy, DLP = ( 259.60 ) mGycm COMPARISON: Prior study dated: CT of the abdomen and pelvis dated May 22, 2023 FINDINGS: LUNGS, PLEURA AND LARGE AIRWAYS: There is minimal dependent atelectasis within the lower lobes there is grossly stable. No masses or consolidation. No pleural effusion or thickening. No pneumothorax. THYROID: No thyroid lesions. HEART AND PERICARDIUM: Heart size is normal. No pericardial effusion. CORONARY ARTERIES: Coronary artery calcification is seen. VESSELS: Thoracic aorta is not dilated. There are peripheral calcifications of the thoracic aorta. MEDIASTINUM AND HANANE: No mediastinal or hilar adenopathy. Esophagus is unremarkable. No hiatal hernia. UPPER ABDOMEN: The limited images of the upper abdomen again demonstrate intraperitoneal free air consistent with recent peritoneal dialysis. There is ascites present. There is cholelithiasis. There is circumferential wall thickening of the visualized ascending and proximal transverse colon. There is renal atrophy. BONES: There are rounded 4.6 x 3.1 x 3.4 cm calcific foci within the soft tissues within the right supraclavicular and infra clavicular region. There are degenerative changes of the thoracic spine. CT/Chest without Contrast IMPRESSION: Indeterminate dermal calcifications within the supra and infraclavicular region cannot exclude neoplastic process. Atherosclerosis. Ascites. Minimal intraperitoneal free air consistent with recent peritoneal dialysis. Circumferential wall thickening of the ascending and visualized transverse colon suggestive of colitis of uncertain chronicity. Renal atrophy. Cholelithiasis. Electronically Signed: Sun Dick MD at 13:16 EDT ,
[2023-06-08 06:00] VITALS: BMI 16.5
[2023-06-08 06:33] LABS: Absolute Lymphocyte Count 1.42 X10^3/uL (0.83-4.51); Absolute Neutrophil Count 7.1 X10^3/uL (2.0-7.7); Basophil# 0.05 X10^3/uL; Basophil% 0.5 % (0-1); Eosinophil# 0.05 X10^3/uL; Eosinophils% 0.5 % (0-5); Hematocrit 24.5 % (37-47); Lymphocyte # 1.42 X10^3/ul (0.83-4.51); Lymphocyte % 15.2 % (19-41); Mean Corp Hgb Conc 32.7 g/dL (32-36); Mean Corpuscular Hgb 29.3 pg (27.0-32.0); Mean Corpuscular Volume 89.7 fL (81-99); Mean Platelet Vol. 11.5 fl (6.2-12.0); Monocyte# 0.67 X10^3/uL; Monocyte% 7.2 % (0-10); NRBC Flagged by Analyzer 0 % (0-5); Neutrophil # 7.14 X10^3/uL (2.7-7.7); Neutrophil % 76.2 % (47-70); Platelet Count 194 K/mm3 (150-450); RBC Distribution Width CV 13.6 % (11.6-14.6); RBC Distribution Width SD 44.4 fl (35.1-43.9); Red Blood Count 2.73 M/mm3 (4.2-5.4); White Blood Count 9.4 K/mm3 (4.4-11.0)
[2023-06-08] MEDS: Famotidine 20 MG Tablet PO (06:55)
[2023-06-08] MEDS: Dronabinol 2.5 MG Capsule PO ×2 (06:55→15:20)
[2023-06-08] MEDS: Sodium Bicarbonate 650 MG Tablet PO ×3 (06:55→20:30)
[2023-06-08 07:05] LABS: GGTP 25 U/L (5-55)
[2023-06-08 07:09] LABS: ALB/GLOB Ratio 0.9 RATIO (0.9-2.4); AST(SGOT) 61 U/L (15-37); Alanine Aminotransfer ALT/SGPT 188 U/L (13-56); Albumin, Serum 2.3 g/dL (3.2-5.0); Alkaline Phosphatase 134 U/L (45-117); Anion Gap 11 (5-15); BUN 49 mg/dL (7-18); BUN/Creat Ratio 7.3 RATIO (10-20); Calcium,Total 9.8 mg/dL (8.5-10.1); Chloride 100 mmol/L (98-107); Creatinine, Serum 6.69 mg/dL (0.55-1.02); EST Glomerular Filtration Rate 6 mL/min (>60); Est Glom Filt Rate - Afr Amer 8 mL/min (>60); Estimated Creatinine Clearance 5.58 ml/min; Globulin 2.6 g/dL (2.2-4.2); Glucose 90 mg/dL (74-106); Potassium 3.9 mmol/L (3.5-5.1); Protein, Total 4.9 g/dL (6.4-8.2); Sodium Level 136 mmol/L (136-145); Thyroid Stim Hormone (TSH) 5.22 uIU/mL (0.358-3.74)
[2023-06-08 08:07] VITALS: BP 132/78; PULSE 72; RESP 16; TEMP 36.8; O2SAT 99
--- NOTE | 2023-06-08 08:08 | PN.HOSP_ITS ---
Reason for Visit Reason for Visit: Diagnoses Unspecified severe protein-calorie malnutrition (06/08/23) Hypercalcemia (06/08/23) Adult failure to thrive (06/08/23) Abnormal weight loss (06/08/23) Abnormal levels of other serum enzymes (06/08/23) Subjective Subjective Patient is a 73-year-old lady admitted with progressive generalized weakness. Work-up on admission did reveal anemia, elevated liver function test as well as hypercalcemia admitted to regular nursing floor for evaluation and management Objective Data Objective Data Vital Signs: Vital Signs Temp Pulse Resp BP Pulse Ox O2 Del Method 98.3 F 70 17 133/74 H 99 Room Air 06/08/23 02:09 06/08/23 02:09 06/08/23 02:09 06/08/23 02:09 06/08/23 02:09 06/08/23 02:44 Oxygen Delivery Method Room Air Weight: 47.9 kg Body Mass Index (BMI) 16.5 Lab / Micro Data 06/08/23 05:15 06/08/23 05:15 Labs: Laboratory Results - last 24 hr 06/07/23 21:24: WBC 9.8, RBC 3.10 L, Hgb 8.7 L, Hct 27.9 L, MCV 90.0, MCH 28.1, MCHC 31.2 L, RDW Std Deviation 44.7 H, RDW Coeff of [place] 13.6, Plt Count 225, MPV 11.2, Immature Gran % (Auto) 0.400, Neut % (Auto) 74.8 H, Lymph % (Auto) 17.8 L, [place] % (Auto) 5.6, Eos % (Auto) 0.8, Baso % (Auto) 0.6, Absolute Neuts (auto) 7.3, Absolute Lymphs (auto) 1.74, Nucleated RBC % 0, Sodium 134 L, Potassium 4.0, Chloride 98, Carbon Dioxide 28.0, Anion Gap 8, BUN 47 H, Creatinine 6.64 H, Est GFR (MDRD) Af Amer 8 L, Est GFR (MDRD) Non-Af 7 L, BUN/Creatinine Ratio 7.1 L, Glucose 106, Calcium 10.3 H, Total Bilirubin 0.40, Direct Bilirubin 0.24, AST 81 H, ALT 232 H, Alkaline Phosphatase 153 H, Total Protein 5.5 L, Albumin 2.6 L, Globulin 2.9 06/07/23 23:53: Urine Color Yellow, Urine Clarity Clear, Urine pH 8.0, Ur Specific [place] 1.015, Urine Protein 30 H, Urine Glucose (UA) Normal, Urine Ketones Negative, Urine Occult Blood Negative, Urine Nitrite Negative, Urine Felipe irubin 3 H, Urine Urobilinogen Normal, Ur Leukocyte Esterase 500 H, Urine RBC 0 SEEN, Urine WBC 10-25 SEEN, Ur Squamous Epith Cells 0-5 SEEN, Urine Bacteria RARE, Urine Mucus 0 SEEN 06/08/23 05:15: WBC 9.4, RBC 2.73 L, Hgb 8.0 L, Hct 24.5 L, MCV 89.7, MCH 29.3, MCHC 32.7, RDW Std Deviation 44.4 H, RDW Coeff of [place] 13.6, Plt Count 194, MPV 11.5, Immature Gran % (Auto) 0.400, Neut % (Auto) 76.2 H, Lymph % (Auto) 15.2 L, [place] % (Auto) 7.2, Eos % (Auto) 0.5, Baso % (Auto) 0.5, Absolute Neuts (auto) 7.1, Absolute Lymphs (auto) 1.42, Nucleated RBC % 0, Sodium 136, Potassium 3.9, Chloride 100, Carbon Dioxide 25.0, Anion Gap 11, BUN 49 H, Creatinine 6.69 H, E stim Creat Clear Calc 5.58, Est GFR (MDRD) Af Amer 8 L, Est GFR (MDRD) Non-Af 6 L, BUN/Creatinine Ratio 7.3 L, Glucose 90, Calcium 9.8, Phosphorus 6.0 H, Magnesium 2.0, Total Bilirubin 0.40, GGT 25, AST 61 H, ALT 188 H, Alkaline Phosphatase 134 H, Total Protein 4.9 L, Albumin 2.3 L, Globulin 2.6, Albumin/Globulin Ratio 0.9, TSH 5.22 H Micro: Microbiology 06/07/23 21:24 Nasal Secretion SARS-CoV-2 Antigen (Rapid) - Final Radiography Diagnostic Testing: Radiology Impression Chest X-Ray 06/07/23 21:34 IMPRESSION: No definite acute or significant abnormality seen. Electronically Signed: Bandar Allen MD at 21:43 EDT , Rhythm Strip Rhythm Strip: Sinus Rhythm Rate: 63 Ectopy: PVC(s) and PAC(s) Physical Exam Narrative GENERAL: cooperative HEENT: Atraumatic; normocephalic EYES; Anicteric, Normal Conjunctiva NECK; supple, normal thyroid, RESPIRATORY: Diminished to auscultation CARDIOVASCULAR: Regular S1 S2, GI: soft, normoactive bowel sounds, : No Renal angle tenderness; EXTREMITIES: No edema, no clubbing, MUSCULOSKELETAL: no muscle wasting NEURO: Awake; no lateralizing signs. SKIN: No Rash PSYCH; Flat affect Assessment & Plan Assessment/Plan (1) Elevated liver enzymes: (2) Abnormal weight loss: (3) Severe malnutrition: (4) Hypercalcemia: (5) Adult failure to thrive: PLAN: Plan Patient is a 73-year-old lady admitted with progressive generalized weakness. Work-up on admission did reveal anemia, elevated liver function test as well as hypercalcemia admitted to regular nursing floor for evaluation and management 1. Physical deconditioning - Requested for PT OT eval and director social welfare to assist with discharge planning 2. Acute hepatitis ? Etiology not clear, patient is on atorvastatin held ordered right upper quadrant ultrasound for subsequent evaluation 3. Hypercalcemia ? Resolved ? However vitamin D level PTH ordered as part of patient's evaluation 4. Severe malnutrition ? Evidenced by decreased oral intake significant weight loss and BMI of 16.5. Consult placed to dietitian 5. Anemia - Secondary to chronic disorder monitoring H&H and transfuse if patient becomes symptomatic or hemoglobin falls below 7 6. End-stage renal disease ? Patient is on peritoneal dialysis family to perform peritoneal dialysis whilst patient is on admission 7. Chronic constipation ? Symptomatic treatment Dyslipidemia ? Patient is on atorvastatin ? Held in view of impaired liver function test 9. Hypertension - Blood pressure controlled, home medications continued with dose adjustment as needed 10. Coronary artery disease ? With previous non-STEMI with PCI to an RCA lesion. Patient is on guideline directed medical therapy 11. DVT prophylaxis ? SC heparin Time spent in the patient's overall evaluation,decision-making process, review of diagnostic data, adjustment of management, discussion with other providers, nursing nursing and ancillary staff involved in patient's care documentation, 50 Minutes Charges/Coding Visit Charges Inpatient E&M: 55765 Subs Hosp L3
[2023-06-08] MEDS: Carvedilol 3.125 MG TABLET PO (08:30)
[2023-06-08] MEDS: Aspirin E.C. 81 MG Tablet PO (08:30)
[2023-06-08 08:34] LABS: PTHIN 515.7 pg/mL (18.4-80.1)
[2023-06-08 08:39] LABS: Vitamin D,25 Hydroxy 42.7 ng/mL
--- NOTE | 2023-06-08 09:58 | CASEMGMT ---
Discharge Planning A list of SNF providers including quality and resource use data and consistent with the patient?s preferred geographic region, medical needs, and insurance network was created in [employer]. This list was provided to the SW. Mariam Dobbins Discharge Planning Asst.
--- NOTE | 2023-06-08 10:05 | CON.PCM.RE_ITS ---
Assessment & Plan Assessment/Plan (1) ESRD (end stage renal disease) on dialysis: (2) Adult failure to thrive: (3) Severe malnutrition: (4) Hypercalcemia: PLAN: Plan This is a pleasant 73-year-old female with past medical history significant for ESRD requiring peritoneal dialysis support who was admitted to the hospital for further evaluation and treatment for failure to thrive, malnutrition. Nephrology consulted for peritoneal dialysis. Patient reports her last PD session was Sunday night. She did not have peritoneal dialysis last night. Patient made aware her daughter will need to bring in her PD cycler machine as well as solutions. Patient to undergo peritoneal dialysis this evening using all 1.5% dialysate solution. Calcium was 10.3 yesterday in the emergency room room, CT chest ordered, we stopped calcitriol and Vitamin D. Patient also reports she had been taking Tums at home. She is not getting any calcium based binders or Tums now. Calcium today 9.8. Abdominal US ordered for elevated LFTs. PT, OT ordered. Marinol ordered. Protein supplements ordered. Patient can be on regular diet. Patient may need rehab once discharged from the hospital. Recommend rehab unit that can accommodate peritoneal dialysis. Will give TAMIKA. Further orders forthcoming as hospitalization evolves, thank you for allowing us to participate in the care of Ms. Dumont. HPI Consult Data Date of Consult: 06/08/23 HPI Narrative HPI Narrative: CHRISTIANO DUMONT, is a 73 F with past medical history significant for ESRD on peritoneal dialysis support, coronary disease status post PCI, history of gastric bypass surgery, anemia of chronic disease who was brought to the emergency room yesterday for evaluation for weight loss, generalized weakness and failure to thrive. She was admitted for further evaluation and treatment. Nephrology consulted as patient has history of end-stage renal disease and is on chronic peritoneal dialysis support followed by Dr. Keene. Patient reports no recent abdominal pain, reports PD fluid has been clear. Her last peritoneal dialysis session was Sunday night. She did not have any peritoneal dialysis last night. Patient denies any recent fevers. She does report because of feeling weak she has had multiple falls at home. Today patient reports Food just does not look good. She denies any recent issues with peritoneal dialysis. [facility] Medical History Acute kidney injury superimposed on CKD Ambulates with cane Anemia Anxiety Arterial steal syndrome Arthritis Atherosclerosis of coronary artery of [place] heart without angina pectoris Back pain Chronic renal failure, stage 5 Depression Dietary restriction Discoloration of skin Easy bruising ESRD (end stage renal disease) on dialysis Gastric reflux History of edema History of renal dialysis History of renal disease History of steroid therapy History of stress test Hypertension Peritoneal dialysis catheter in place Post-menopausal Renal calculi Rheumatoid arthritis Seasonal allergies Shortness of breath on exertion Superficial thrombophlebitis of arm Urinary tract infection Vascular dialysis catheter in place Wears glasses Home Medications magnesium oxide 400 mg PO DAILY supplement 12/17/21 [History Last Taken 10/10/22] mecobalamin (vitamin B12) 1,000 mcg chewable tablet (B12 Active) 2,000 mcg PO DAILY vitamin 12/17/21 [History Last Taken 10/10/22] ergocalciferol (vitamin D2) 1,250 mcg (50,000 unit) capsule (Vitamin D2) 1,250 mcg PO QWEEK vitamin 01/06/22 [History Last Taken 10/04/22] sodium bicarbonate 650 mg tablet 650 mg PO TID supplement 01/06/22 [History Last Taken 10/10/22] aspirin 81 mg tablet,delayed release 81 mg PO BREAKFAST heart health 10/10/22 [History Last Taken 10/10/22] calcitriol 0.5 mcg capsule 1 mcg PO DAILY bone health 12/21/22 [History Last Buddy en Unknown] carvedilol 3.125 mg tablet 3.125 mg PO DAILY heart #90 tabs 12/21/22 [Rx Last Taken Unknown] clopidogrel 75 mg tablet 75 mg PO DAILY blood thinner #90 tabs 12/21/22 [Rx Last Taken Unknown] potassium chloride 20 mEq tablet,extended release(part/cryst) 40 meq PO BID supplement 12/21/22 [History Last Taken Unknown] atorvastatin 40 mg tablet 40 mg PO QAM cholesterol 04/06/23 [History Last Taken Unknown] paroxetine HCl 20 mg tablet 20 mg PO DAILY depression 04/06/23 [History Last Taken Unknown] Allergy/AdvReac Type Severity Reaction Status Date / Time adhesive tape Allergy Rash Verified 06/07/23 21:14 amoxicillin [From Augmentin] Allergy Swelling Verified 06/07/23 21:14 srinivasan Allergy Itching Verified 06/07/23 21:14 cephalexin [From Keflex] Allergy Swelling Verified 06/07/23 21:14 clavulanic acid Allergy Swelling Verified 06/07/23 21:14 [From Augmentin] latex Allergy Rash Verified 06/07/23 21:14 Penicillins [PCN] Allergy Swelling Verified 06/07/23 21:14 sulfamethoxazole Allergy rash,swellling, Verified 06/07/23 21:14 [From Bactrim] itching trimethoprim [From Bactrim] Allergy rash,swellling, Verified 06/07/23 21:14 itching walnut Allergy Itching Verified 06/07/23 21:14 Family History Mother Heart disease Diabetes Hypertension Father Dementia Surgical History H/O hernia repair history Left AV Fistula Creation (~05/03/20) History of colonoscopy History of coronary artery stent placement (05/10/22) History of esophagogastroduodenoscopy (EGD) Hx of cystoscopy Hx of cystoscopy S/P bypass gastroenterostomy S/P coronary artery stent placement S/P hemorrhoidectomy Social History household members: other details: Lives with her daughter. Smoking Status: Never smoker alcohol intake: never substance use type: does not use ROS ROS Narrative As in HPI and past medical history Physical Exam Narrative Alert and orient x3, no apparent distress S1, S2, RRR Lung sounds clear anteriorly and posteriorly Abdomen soft, nontender. PD catheter dressing clean, dry and intact. Observed PD catheter insertion site: no redness, drainage or swelling No edema Lab / Micro Data 06/08/23 05:15 06/08/23 05:15 Labs: Laboratory Results - last 24 hr 06/07/23 21:24: WBC 9.8, RBC 3.10 L, Hgb 8.7 L, Hct 27.9 L, MCV 90.0, MCH 28.1, MCHC 31.2 L, RDW Std Deviation 44.7 H, RDW Coeff of [place] 13.6, Plt Count 225, MPV 11.2, Immature Gran % (Auto) 0.400, Neut % (Auto) 74.8 H, Lymph % (Auto) 17.8 L, [place] % (Auto) 5.6, Eos % (Auto) 0.8, Baso % (Auto) 0.6, Absolute Neuts (auto) 7.3, Absolute Lymphs (auto) 1.74, Nucleated RBC % 0, Sodium 134 L, Potassium 4.0, Chloride 98, Carbon Dioxide 28.0, Anion Gap 8, BUN 47 H, Creatinine 6.64 H, Est GFR (MDRD) Af Amer 8 L, Est GFR (MDRD) Non-Af 7 L, BUN/Creatinine Ratio 7.1 L, Glucose 106, Calcium 10.3 H, Total Bilirubin 0.40, Direct Bilirubin 0.24, AST 81 H, ALT 232 H, Alkaline Phosphatase 153 H, Total Protein 5.5 L, Albumin 2.6 L, Globulin 2.9 06/07/23 23:53: Urine Color Yellow, Urine Clarity Clear, Urine pH 8.0, Ur Specific [place] 1.015, Urine Protein 30 H, Urine Glucose (UA) Normal, Urine Ketones Negative, Urine Occult Blood Negative, Urine Nitrite Negative, Urine Bilirubin 3 H, Urine Urobilinogen Normal, Ur Leukocyte Esterase 500 H, Urine RBC 0 SEEN, Urine WBC 10-25 SEEN, Ur Squamous Epith Cells 0-5 SEEN, Urine Bacteria RARE, Urine Mucus 0 SEEN 06/08/23 05:15: WBC 9.4, RBC 2.73 L, Hgb 8.0 L, Hct 24.5 L, MCV 89.7, MCH 29.3, MCHC 32.7, RDW Std Deviation 44.4 H, RDW Coeff of [place] 13.6, Plt Count 194, MPV 11.5, Immature Gran % (Auto) 0.400, Neut % (Auto) 76.2 H, Lymph % (Auto) 15.2 L, [place] % (Auto) 7.2, Eos % (Auto) 0.5, Baso % (Auto) 0.5, Absolute Neuts (auto) 7.1, Absolute Lymphs (auto) 1.42, Nucleated RBC % 0, Sodium 136, Potassium 3.9, Chloride 100, Carbon Dioxide 25.0, Anion Gap 11, BUN 49 H, Creatinine 6.69 H, Estim Creat Clear Calc 5.58, Est GFR (MDRD) Af Amer 8 L, Est GFR (MDRD) Non-Af 6 L, BUN/Creatinine Ratio 7.3 L, Glucose 90, Calcium 9.8, Phosphorus 6.0 H, Magnesium 2.0, Total Bilirubin 0.40, GGT 25, AST 61 H, ALT 188 H, Alkaline Phosphatase 134 H, Total Protein 4.9 L, Albumin 2.3 L, Globulin 2.6, Albumin/Globulin Ratio 0.9, Vitamin D 25-Hydroxy 42.7, TSH 5.22 H, PTH Intact 515.7 H Micro: Microbiology 06/07/23 21:24 Nasal Secretion SARS-CoV-2 Antigen (Rapid) - Final Rhythm Strip Rhythm Strip: Sinus Rhythm Rate: 63 Ectopy: PVC(s) and PAC(s) Radiology Impression Chest X-Ray 06/07/23 21:34 IMPRESSION: No definite acute or significant abnormality seen. Electronically Signed: Bandar Allen MD at 21:43 EDT ,
[2023-06-08] MEDS: Potassium Chloride Oral Tablet 20 MEQ 40 MEQ PO ×2 (11:24→20:30)
[2023-06-08] MEDS: Magnesium Chloride 64 MG Delay Rel.Tablet 128 MG PO (11:25)
[2023-06-08] MEDS: Clopidogrel Bisulfate 75 MG Tablet PO (11:25)
[2023-06-08] MEDS: Paroxetine 20 MG Tablet PO (11:27)
[2023-06-08] MEDS: CLARIFY ORDER 1 EACH NOTE (11:56)
--- NOTE | 2023-06-08 14:37 | CASEMGMT ---
Discharge Planning SNF list sent to patients daughter via text message. Mariam Dobbins, Discharge Planning Asst.
--- NOTE | 2023-06-08 14:46 | CASEMGMT ---
Social Work Pt has a living will and health care POA on file at [facility] naming her daughter María Elena Dumont. Pt confirms this information is correct. PAULY Tanner
--- NOTE | 2023-06-08 14:47 | CASEMGMT ---
Social Work SW to room to meet with patient for initial transition planning/care coordination?assessment.?SW?introduced self and role at [facility].? Pt voices understanding and consents to?assessment.? Pt resting in bed and no distress. Pt did not make eye contact with SW throughout conversation but did answer questions appropriately.?Care providers, pharmacy, and demographics verified/updated at this time. PCP: [facility] Specialists: Jassi, nephrology Cardiology, but pt cannot remember name Preferred Pharmacy: [facility] Insurance: Medicare Living Will/HPOA:?Pt has living will and HCPOA naming her daughter María Elena Dumont on file at [facility] [place]: María Elena Dumont, dgt Living Arrangements: Pt lives in a 2 story home with first floor set up. Approximatly 10 steps into the home. Pt's dgt does work during the day and pt is home alone. Pt dgt assists with ADLs and IADLs. Pt does receive peritoneal dialysis and dgt assists with this. Transportation:?daughter provides DME: ? walker, cane shower chair, high rise toilet, hospital bed, Wheelchair HHC/SNF: home health PT/OT previously but cannot remember which company SW and pt discussed progress with therapy and recommendations for SNF as pt is alone during the day and MIN A for transfers and ambulation. Pt is agreeable to SNF placment. A list of SNF providers including quality and resource use data and consistent with the patient?s preferred geographic region, medical needs, and insurance network were provided from the [employer] Guide. Pt reviewed but was uncertain what to do. SW offered to contact pt dgt and pt agreeable. Phone call to pt dgt María Elena and discharge plan discussed. María Elena agreeable to SNF placement. A list of SNF providers including quality and resource use data and consistent with the patient?s preferred geographic region, medical needs, and insurance network were provided via the [employer] Link. Preferred providers are 1. [facility], 2. [facility], 3. [facility] 4. [facility] Referrals to be sent. Pt can discharge on Sunday. Plan: SNF, pending acceptance PAULY Tanner
[2023-06-08 15:09] VITALS: BP 103/60; PULSE 62; RESP 16; TEMP 36.7; O2SAT 99
--- NOTE | 2023-06-08 15:46 | CASEMGMT ---
Discharge Planning Referral sent to [facility], [facility] Care [facility], and [facility] via [facility]. Mariam Dobbins, Discharge Planning Asst.
[2023-06-08] MEDS: Heparin Injection (Vial) 5,000 UNIT/ML VIAL 5000 UNIT SC (20:30)
[2023-06-08] MEDS: Docusate Sodium 100 MG Capsule PO (20:30)
[2023-06-08 20:48] VITALS: BP 111/56; PULSE 58; RESP 16; TEMP 36.8; O2SAT 97
[2023-06-09 03:36] VITALS: BMI 16.5
[2023-06-09 03:57] VITALS: BP 92/56; PULSE 61; RESP 18; TEMP 36.7; O2SAT 99
[2023-06-09] MEDS: Dronabinol 2.5 MG Capsule PO ×2 (05:45→16:19)
[2023-06-09] MEDS: Sodium Bicarbonate 650 MG Tablet PO ×2 (05:45→23:00)
[2023-06-09] MEDS: Aspirin E.C. 81 MG Tablet PO (07:50)
[2023-06-09] MEDS: Docusate Sodium 100 MG Capsule PO ×2 (07:50→23:00)
[2023-06-09] MEDS: Clopidogrel Bisulfate 75 MG Tablet PO (07:51)
[2023-06-09] MEDS: Atorvastatin Calcium 40 MG Tablet PO (07:51)
[2023-06-09] MEDS: Potassium Chloride Oral Tablet 20 MEQ 40 MEQ PO ×2 (07:51→23:00)
[2023-06-09] MEDS: Magnesium Chloride 64 MG Delay Rel.Tablet 128 MG PO (07:52)
[2023-06-09] MEDS: Paroxetine 20 MG Tablet PO (07:52)
[2023-06-09] MEDS: Heparin Injection (Vial) 5,000 UNIT/ML VIAL 5000 UNIT SC ×2 (07:57→23:00)
--- NOTE | 2023-06-09 08:04 | PCM.PN.HOSP ---
Reason for Visit Reason for Visit: Diagnoses Unspecified severe protein-calorie malnutrition (06/08/23) Hypercalcemia (06/08/23) Adult failure to thrive (06/08/23) Abnormal weight loss (06/08/23) Abnormal levels of other serum enzymes (06/08/23) Subjective Subjective Seen had a relatively uneventful night somewhat. Heart peritenon dialysis after family brought him her machine. Case management working on disposition Objective Data Objective Data Vital Signs: Vital Signs Temp Pulse Resp BP Pulse Ox O2 Del Method 98.1 F 61 18 92/56 L 99 Room Air 06/09/23 03:57 06/09/23 03:57 06/09/23 03:57 06/09/23 03:57 06/09/23 03:57 06/09/23 03:57 Oxygen Delivery Method Room Air Weight: 47.6 kg Body Mass Index (BMI) 16.5 Intake & Output: Intake and Output for Last 24 Hours 06/07/23 06/08/23 06/09/23 23:59 23:59 23:59 Intake Total 500 / 500 Balance 500 / 500 Medical Nutrition Assessment Dietitian: Malnutrition Criteria Met Start: 06/08/23 12:18 Freq: Status: Active Protocol: Document 06/08/23 12:18 JOY (Rec: 06/08/23 12:19 JOY [id number]) Nutrition Malnutrition Evidence of Malnutrition Exists Yes Malnutrition (severe): Chronic Evidenced By Suboptimal Energy Intake ( Severe),Weight Loss (Moderate) ,Physical Changes (Severe) Clinical Problem Chronic Disease or Condition Related Malnutrition Etiology related to inadequate energy intake Signs/Symptoms as evidenced by pt consuming < 50% of usual po intake x >1 mo , fat/muscle weakness throughout body and BMI = 16.5 Status Active Problem Recommendation Dietitian Recommendations/Changes Continue liberal regular diet d/t signs/symptoms of malnutrition Continue ONS w/ medpass for increased nutrition if consumed Monitor for refeeding syndrome Will interview pt at time of follow up re: diet/wt hx and make additional rec as indicated. Lab / Micro Data 06/08/23 05:15 06/08/23 05:15 Labs: Laboratory Results - last 24 hr 06/08/23 05:15: Vitamin D 25-Hydroxy 42.7, PTH Intact 515.7 H Micro: Microbiology 06/07/23 21:24 Nasal Secretion SARS-CoV-2 Antigen (Rapid) - Final Radiography Diagnostic Testing: Radiology Impression Abdomen Ultrasound 06/08/23 02:41 IMPRESSION: Heterogenous liver suggestive of hepatic dysfunction. Cholelithiasis with trace pericholecystic fluid and a reported positive sonographic Lau''s sign, cannot exclude early cholecystitis. Common tail artifact arising from the gallbladder fundus may reflect adenomyomatosis. Electronically Signed: Sun Dick MD at 12:49 EDT Reading Location ID and State: [facility], [id number] / [place] Tel , Service support , Chest CT 06/08/23 05:55 IMPRESSION: Indeterminate dermal calcifications within the supra and infraclavicular region cannot exclude neoplastic process. Atherosclerosis. Ascites. Minimal intraperitoneal free air consistent with recent peritoneal dialysis. Circumferential wall thickening of the ascending and visualized transverse colon suggestive of colitis of uncertain chronicity. Renal atrophy. Cholelithiasis. Electronically Signed: Sun Dick MD at 13:16 EDT , Rhythm Strip Rhythm Strip: Sinus Rhythm Rate: 63 Ectopy: PVC(s) and PAC(s) Physical Exam Narrative GENERAL: cooperative HEENT: Atraumatic; normocephalic EYES; Anicteric, Normal Conjunctiva NECK; supple, normal thyroid, RESPIRATORY: Diminished to auscultation CARDIOVASCULAR: Regular S1 S2, GI: soft, normoactive bowel sounds, : No Renal angle tenderness; EXTREMITIES: No edema, no clubbing, MUSCULOSKELETAL: no muscle wasting NEURO: Awake; no lateralizing signs. SKIN: No Rash PSYCH; Flat affect Assessment & Plan Assessment/Plan (1) Elevated liver enzymes: (2) Abnormal weight loss: (3) Severe malnutrition: (4) Hypercalcemia: (5) Adult failure to thrive: PLAN: Plan Patient is a 73-year-old lady admitted with progressive generalized weakness. Work-up on admission did reveal anemia, elevated liver function test as well as hypercalcemia admitted to regular nursing floor for evaluation and management 1. Physical deconditioning - Requested for PT OT eval and social service technician to assist with discharge planning 2. Acute hepatitis ? Etiology not clear, patient is on atorvastatin held ordered right upper quadrant ultrasound for subsequent evaluation 3. Hypercalcemia ? Resolved ? However vitamin D level PTH ordered as part of patient's evaluation 4. Severe malnutrition ? Evidenced by decreased oral intake significant weight loss and BMI of 16.5. Consult placed to dietitian 5. Anemia - Secondary to chronic disorder monitoring H&H and transfuse if patient becomes symptomatic or hemoglobin falls below 7 6. End-stage renal disease ? Patient is on peritoneal dialysis family to perform peritoneal dialysis whilst patient is on admission 7. Chronic constipation ? Symptomatic treatment Dyslipidemia ? Patient is on atorvastatin ? Held in view of impaired liver function test 9. Hypertension - Blood pressure controlled, home medications continued with dose adjustment as needed 10. Coronary artery disease ? With previous non-STEMI with PCI to an RCA lesion. Patient is on guideline directed medical therapy 11. DVT prophylaxis ? SC heparin Time spent in the patient's overall evaluation,decision-making process, review of diagnostic data, adjustment of management, discussion with other providers, nursing nursing and ancillary staff involved in patient's care documentation, 35 minutes Charges/Coding Visit Charges Inpatient E&M: 89510 Subs Hosp L2
[2023-06-09 08:30] VITALS: BP 94/63; PULSE 61; RESP 16; TEMP 36.6; O2SAT 98
[2023-06-09 11:48] VITALS: BP 98/67; PULSE 58; RESP 16; TEMP 36.6; O2SAT 97
[2023-06-09] MEDS: Linezolid 600 MG Tablet PO ×2 (15:39→23:30)
[2023-06-09 15:51] VITALS: BP 100/57; PULSE 64; RESP 16; TEMP 36.6; O2SAT 100
[2023-06-09 23:17] VITALS: BP 93/53; PULSE 60; RESP 16; TEMP 36.4; O2SAT 94
[2023-06-10] MEDS: Famotidine 20 MG Tablet PO (02:50)
[2023-06-10 03:00] VITALS: BP 107/57; PULSE 65; RESP 16; TEMP 36.6; O2SAT 97
[2023-06-10] MEDS: Sodium Bicarbonate 650 MG Tablet PO ×2 (04:49→23:41)
[2023-06-10] MEDS: Dronabinol 2.5 MG Capsule PO ×2 (05:35→16:30)
[2023-06-10 06:00] VITALS: BMI 16.3
--- NOTE | 2023-06-10 07:27 | PN.HOSP_ITS ---
Reason for Visit Reason for Visit: Diagnoses Unspecified severe protein-calorie malnutrition (06/08/23) Hypercalcemia (06/08/23) End stage renal disease (06/08/23) Adult failure to thrive (06/08/23) Abnormal weight loss (06/08/23) Abnormal levels of other serum enzymes (06/08/23) Dependence on renal dialysis (06/08/23) Subjective Subjective Patient seen has a significantly flat affect. Per nursing staff patient did not eat much the day prior. Did complain of nausea this a.m. and vomited x1 Objective Data Objective Data Vital Signs: Vital Signs Temp Pulse Resp BP Pulse Ox O2 Del Method 97.8 F 65 16 107/57 L 97 Room Air 06/10/23 03:00 06/10/23 03:00 06/10/23 03:00 06/10/23 03:00 06/10/23 03:00 06/10/23 03:00 Oxygen Delivery Method Room Air Weight: 47.3 kg Body Mass Index (BMI) 16.3 Intake & Output: Intake and Output for Last 24 Hours 06/08/23 06/09/23 06/10/23 23:59 23:59 23:59 Intake Total 800 / 1000 350 / 350 Balance 800 / 1000 350 / 350 Medical Nutrition Assessment Dietitian: Malnutrition Criteria Met Start: 06/08/23 12:18 Freq: Status: Active Protocol: Document 06/08/23 12:18 JOY (Rec: 06/08/23 12:19 JOY [id number]) Nutrition Malnutrition Evidence of Malnutrition Exists Yes Malnutrition (severe): Chronic Evidenced By Suboptimal Energy Intake ( Severe),Weight Loss (Moderate) ,Physical Changes (Severe) Clinical Problem Chronic Disease or Condition Related Malnutrition Etiology related to inadequate energy intake Signs/Symptoms as evidenced by pt consuming < 50% of usual po intake x >1 mo , fat/muscle weakness throughout body and BMI = 16.5 Status Active Problem Recommendation Dietitian Recommendations/Changes Continue liberal regular diet d/t signs/symptoms of malnutrition Continue ONS w/ medpass for increased nutrition if consumed Monitor for refeeding syndrome Will interview pt at time of follow up re: diet/wt hx and make additional rec as indicated. Lab / Micro Data 06/08/23 05:15 06/08/23 05:15 Micro: Microbiology 06/07/23 23:53 Urine, Catheterized Urine Culture - Preliminary GPC Poss Enterococcus sp 06/07/23 21:24 Nasal Secretion SARS-CoV-2 Antigen (Rapid) - Final Rhythm Strip Rhythm Strip: Sinus Rhythm Rate: 63 Ectopy: PVC(s) and PAC(s) Physical Exam Narrative GENERAL: cooperative HEENT: Atraumatic; normocephalic EYES; Anicteric, Normal Conjunctiva NECK; supple, normal thyroid, RESPIRATORY: Diminished to auscultation CARDIOVASCULAR: Regular S1 S2, GI: soft, normoactive bowel sounds, : No Renal angle tenderness; EXTREMITIES: No edema, no clubbing, MUSCULOSKELETAL: no muscle wasting NEURO: Awake; no lateralizing signs. SKIN: No Rash PSYCH; Flat affect Assessment & Plan Assessment/Plan (1) Elevated liver enzymes: (2) Abnormal weight loss: (3) Severe malnutrition: (4) Hypercalcemia: (5) Adult failure to thrive: PLAN: Plan Patient is a 73-year-old lady admitted with progressive generalized weakness. Work-up on admission did reveal anemia, elevated liver function test as well as hypercalcemia admitted to regular nursing floor for evaluation and management 1. Physical deconditioning - Requested for PT OT eval and high school social studies teacher to assist with discharge planning 2. Acute hepatitis ? Etiology not clear, patient is on atorvastatin held ordered right upper quadrant ultrasound for subsequent evaluation -06/10/2023. Ultrasound of the liver demonstrated Cholelithiasis with trace pericholecystic fluid and a reported positive sonographic Lau''s sign, cannot exclude early cholecystitis. HIDA scan ordered for subsequent eval also repeated LFTs 3. Hypercalcemia ? Resolved ? However vitamin D level PTH ordered as part of patient's evaluation 4. Severe malnutrition ? Evidenced by decreased oral intake significant weight loss and BMI of 16.5. Consult placed to dietitian 5. Anemia - Secondary to chronic disorder monitoring H&H and transfuse if patient becomes symptomatic or hemoglobin falls below 7 6. End-stage renal disease ? Patient is on peritoneal dialysis family to perform peritoneal dialysis whilst patient is on admission 7. Chronic constipation ? Symptomatic treatment Dyslipidemia ? Patient is on atorvastatin ? Held in view of impaired liver function test 9. Hypertension - Blood pressure controlled, home medications continued with dose adjustment as needed 10. Coronary artery disease ? With previous non-STEMI with PCI to an RCA lesion. Patient is on guideline directed medical therapy 11. DVT prophylaxis ? SC heparin Time spent in the patient's overall evaluation,decision-making process, review of diagnostic data, adjustment of management, discussion with other providers, nursing nursing and ancillary staff involved in patient's care documentation, 50 minutes Charges/Coding Visit Charges Inpatient E&M: 85589 Subs Hosp L3
[2023-06-10] MEDS: Clopidogrel Bisulfate 75 MG Tablet PO (08:10)
[2023-06-10] MEDS: Aspirin E.C. 81 MG Tablet PO (08:10)
[2023-06-10] MEDS: Docusate Sodium 100 MG Capsule PO ×2 (08:10→23:41)
[2023-06-10] MEDS: Magnesium Chloride 64 MG Delay Rel.Tablet 128 MG PO (08:11)
[2023-06-10 09:17] VITALS: BP 93/56; PULSE 61; RESP 16; TEMP 36.6; O2SAT 100
[2023-06-10 09:38] LABS: Absolute Neutrophil Count 5.4 X10^3/uL (2.0-7.7); Basophil# 0.04 X10^3/uL; Basophil% 0.5 % (0-1); Eosinophil# 0.08 X10^3/uL; Eosinophils% 1.1 % (0-5); Hematocrit 26.5 % (37-47); Hemoglobin 8.2 g/dL (12.0-15.0); Lymphocyte % 18.8 % (19-41); Mean Corp Hgb Conc 30.9 g/dL (32-36); Mean Corpuscular Hgb 28.9 pg (27.0-32.0); Mean Corpuscular Volume 93.3 fL (81-99); Mean Platelet Vol. 11.7 fl (6.2-12.0); Monocyte% 6.7 % (0-10); NRBC Flagged by Analyzer 0 % (0-5); Neutrophil % 72.5 % (47-70); Platelet Count 186 K/mm3 (150-450); RBC Distribution Width CV 13.7 % (11.6-14.6); RBC Distribution Width SD 46.7 fl (35.1-43.9); Red Blood Count 2.84 M/mm3 (4.2-5.4); White Blood Count 7.5 K/mm3 (4.4-11.0)
[2023-06-10 09:56] LABS: AST(SGOT) 33 U/L (15-37); Alanine Aminotransfer ALT/SGPT 108 U/L (13-56); Albumin, Serum 2.2 g/dL (3.2-5.0); Alkaline Phosphatase 128 U/L (45-117); Anion Gap 7 (5-15); BUN 42 mg/dL (7-18); BUN/Creat Ratio 6.7 RATIO (10-20); Bilirubin, Direct 0.22 mg/dL (0.00-0.30); Calcium,Total 9.8 mg/dL (8.5-10.1); Chloride 104 mmol/L (98-107); Creatinine, Serum 6.26 mg/dL (0.55-1.02); EST Glomerular Filtration Rate 7 mL/min (>60); Est Glom Filt Rate - Afr Amer 8 mL/min (>60); Estimated Creatinine Clearance 5.89 ml/min; Globulin 2.4 g/dL (2.2-4.2); Glucose 112 mg/dL (74-106); Magnesium 2.1 mg/dL (1.6-2.6); Phosphorus 4.2 mg/dL (2.5-4.9); Potassium 5.5 mmol/L (3.5-5.1); Protein, Total 4.6 g/dL (6.4-8.2); Sodium Level 134 mmol/L (136-145)
[2023-06-10] MEDS: Heparin Injection (Vial) 5,000 UNIT/ML VIAL 5000 UNIT SC ×2 (10:14→23:41)
[2023-06-10] MEDS: Atorvastatin Calcium 40 MG Tablet PO (10:14)
[2023-06-10] MEDS: Potassium Chloride Oral Tablet 20 MEQ 40 MEQ PO ×2 (10:14→23:41)
[2023-06-10] MEDS: Linezolid 600 MG Tablet PO (11:28)
[2023-06-10 11:50] VITALS: BP 102/59; PULSE 64; RESP 16; TEMP 36.7; O2SAT 100
[2023-06-10 15:08] VITALS: BP 99/60; PULSE 64; RESP 16; TEMP 36.5; O2SAT 100
--- NOTE | 2023-06-10 19:41 | NURSING ---
hooked pt up to peritoneal dialysis at 1940.
[2023-06-10 23:30] VITALS: BP 94/64; PULSE 63; RESP 18; TEMP 37.2; O2SAT 96
[2023-06-10] MEDS: 0.9% Saline Lock 10 ML Syringe IV (23:42)
[2023-06-11] MEDS: Linezolid 600 MG Tablet PO ×3 (01:13→22:48)
[2023-06-11 01:19] VITALS: BP 84/71; PULSE 83; RESP 16; TEMP 37; O2SAT 100
--- NOTE | 2023-06-11 05:55 | NM_ITS ---
CLINICAL: 73-year-old female with history of abnormal transaminase enzyme levels. RADIONUCLIDE HEPATOBILIARY SCINTIGRAPHY COMPARISON: Abdominal ultrasound report 06/08/2023 FINDINGS: Following the intravenous administration of 6.0 mCi of 99m Tc Mebrofenin, hepatobiliary images reveal: 1. Relatively prompt and homogeneous radiopharmaceutical concentration is noted by a normal sized liver. No parenchymal defects are identified. 2. Gallbladder activity is not identified during 60 minutes of sequential imaging and delayed images obtained at 75, 90 and 120 minutes post tracer injection. 3. Small intestinal tract is observed at 15 minutes post radiopharmaceutical administration. 4. Washout of the radiopharmaceutical by the hepatic parenchyma appears qualitatively normal. NM/Hepatobilliary Img w/Pharm Int IMPRESSION: 1. ABNORMAL 99m Tc Mebrofenin hepatobiliary imaging examination. A. Nonvisualization of the gallbladder at 60, and 120 minutes post radiopharmaceutical administration is consistent with a high probability of cholecystitis (acute or chronic) in patients with intermediate to high pretest probabilities of hepatobiliary disease and who have fasted for more than 4 and less than 24 hours. (Deuce et al, Nucl Med Lauren Holley Press pg. 35, 1980). Electronically Signed: Arden Mccurdy, at 13:31 EDT ,
[2023-06-11 06:00] VITALS: BMI 17.0
[2023-06-11 06:45] VITALS: BP 90/56; PULSE 62; RESP 18; TEMP 36.3; O2SAT 99
[2023-06-11] MEDS: Dronabinol 2.5 MG Capsule PO ×2 (06:50→16:27)
[2023-06-11] MEDS: Sodium Bicarbonate 650 MG Tablet PO ×3 (06:50→22:48)
[2023-06-11 07:01] LABS: Absolute Lymphocyte Count 2.03 X10^3/uL (0.83-4.51); Absolute Neutrophil Count 3.5 X10^3/uL (2.0-7.7); Basophil# 0.05 X10^3/uL; Basophil% 0.8 % (0-1); Eosinophil# 0.12 X10^3/uL; Eosinophils% 1.9 % (0-5); Hematocrit 27.9 % (37-47); Hemoglobin 8.3 g/dL (12.0-15.0); Lymphocyte # 2.03 X10^3/ul (0.83-4.51); Lymphocyte % 32.5 % (19-41); Mean Corp Hgb Conc 29.7 g/dL (32-36); Mean Corpuscular Hgb 28.4 pg (27.0-32.0); Mean Corpuscular Volume 95.5 fL (81-99); Mean Platelet Vol. 12.1 fl (6.2-12.0); Monocyte# 0.54 X10^3/uL; Monocyte% 8.6 % (0-10); NRBC Flagged by Analyzer 0 % (0-5); Neutrophil # 3.48 X10^3/uL (2.7-7.7); Neutrophil % 55.7 % (47-70); Platelet Count 207 K/mm3 (150-450); RBC Distribution Width CV 13.7 % (11.6-14.6); RBC Distribution Width SD 47.7 fl (35.1-43.9); Red Blood Count 2.92 M/mm3 (4.2-5.4); White Blood Count 6.3 K/mm3 (4.4-11.0)
[2023-06-11 07:21] LABS: ALB/GLOB Ratio 0.9 RATIO (0.9-2.4); AST(SGOT) 28 U/L (15-37); Alanine Aminotransfer ALT/SGPT 90 U/L (13-56); Albumin, Serum 2.2 g/dL (3.2-5.0); Alkaline Phosphatase 128 U/L (45-117); Anion Gap 5 (5-15); BUN 38 mg/dL (7-18); Calcium,Total 9.9 mg/dL (8.5-10.1); Chloride 105 mmol/L (98-107); Creatinine, Serum 6.34 mg/dL (0.55-1.02); EST Glomerular Filtration Rate 7 mL/min (>60); Est Glom Filt Rate - Afr Amer 8 mL/min (>60); Estimated Creatinine Clearance 6.05 ml/min; Globulin 2.5 g/dL (2.2-4.2); Glucose 115 mg/dL (74-106); Magnesium 2.4 mg/dL (1.6-2.6); Phosphorus 3.6 mg/dL (2.5-4.9); Potassium 5.7 mmol/L (3.5-5.1); Protein, Total 4.7 g/dL (6.4-8.2); Sodium Level 133 mmol/L (136-145)
[2023-06-11 11:00] VITALS: BP 101/34; PULSE 66; RESP 18; TEMP 36.9; O2SAT 98
[2023-06-11] MEDS: Clopidogrel Bisulfate 75 MG Tablet PO (11:03)
[2023-06-11] MEDS: Aspirin E.C. 81 MG Tablet PO (11:03)
[2023-06-11] MEDS: Magnesium Chloride 64 MG Delay Rel.Tablet 128 MG PO (11:04)
[2023-06-11] MEDS: Sodium Polystyrene Sulfonate 15 GM/60 ML UDC 30 GM PO (11:06)
--- NOTE | 2023-06-11 12:16 | CASEMGMT ---
Discharge Planning Requested updates sent to [facility] via [facility]. Still awaiting acceptance. Mariam Dobbins, Discharge Planning Asst.
[2023-06-11] MEDS: Heparin Injection (Vial) 5,000 UNIT/ML VIAL 5000 UNIT SC ×2 (12:40→22:48)
[2023-06-11] MEDS: Atorvastatin Calcium 40 MG Tablet PO (12:40)
--- NOTE | 2023-06-11 12:41 | PN.RENAL_ITS ---
Subjective Subjective No new complaints Objective Data Objective Data Vital Signs: Vital Signs Temp Pulse Resp BP Pulse Ox O2 Del Method 98.5 F 66 18 101/34 L 98 Room Air 06/11/23 11:00 06/11/23 11:00 06/11/23 11:00 06/11/23 11:00 06/11/23 11:00 06/11/23 11:00 Oxygen Delivery Method Room Air Weight: 49.2 kg Body Mass Index (BMI) 17.0 Intake & Output: Intake and Output for Last 24 Hours 06/09/23 06/10/23 06/11/23 23:59 23:59 23:59 Intake Total 800 / 1000 570 / 670 100 / 100 Balance 800 / 1000 570 / 670 100 / 100 Medical Nutrition Assessment Dietitian: Malnutrition Criteria Met Start: 06/08/23 12:18 Freq: Status: Active Protocol: Document 06/08/23 12:18 SLA (Rec: 06/08/23 12:19 SLA [id number]) Nutrition Malnutrition Evidence of Malnutrition Exists Yes Malnutrition (severe): Chronic Evidenced By Suboptimal Energy Intake ( Severe),Weight Loss (Moderate) ,Physical Changes (Severe) Clinical Problem Chronic Disease or Condition Related Malnutrition Etiology related to inadequate energy intake Signs/Symptoms as evidenced by pt consuming < 50% of usual po intake x >1 mo , fat/muscle weakness throughout body and BMI = 16.5 Status Active Problem Recommendation Dietitian Recommendations/Changes Continue liberal regular diet d/t signs/symptoms of malnutrition Continue ONS w/ medpass for increased nutrition if consumed Monitor for refeeding syndrome Will interview pt at time of follow up re: diet/wt hx and make additional rec as indicated. Lab / Micro Data 06/11/23 05:19 06/11/23 05:19 Labs: Laboratory Results - last 24 hr 06/11/23 05:19: WBC 6.3, RBC 2.92 L, Hgb 8.3 L, Hct 27.9 L, MCV 95.5, MCH 28.4, MCHC 29.7 L, RDW Std Deviation 47.7 H, RDW Coeff of [place] 13.7, Plt Count 207, MPV 12.1 H, Immature Gran % (Auto) 0.500, Neut % (Auto) 55.7, Lymph % (Auto) 32.5, Lipscomb % (Auto) 8.6, Eos % (Auto) 1.9, Baso % (Auto) 0.8, Absolute Neuts (auto) 3.5, Absolute Lymphs (auto) 2.03, Nucleated RBC % 0, Sodium 133 L, Potassium 5.7 H, Chloride 105, Carbon Dioxide 23.0, Anion Gap 5, BUN 38 H, Creatinine 6.34 H, Estim Creat Clear Calc 6.05, Est GFR (MDRD) Af Amer 8 L, Est GFR (MDRD) Non-Af 7 L, BUN/Creatinine Ratio 6.0 L, Glucose 115 H, Calcium 9.9, Phosphorus 3.6, Magnesium 2.4, Total Bilirubin 0.40, AST 28, ALT 90 H, Alkaline Phosphatase 128 H, Total Protein 4.7 L, Albumin 2.2 L, Globulin 2.5, Albumin/Globulin Ratio 0.9 Micro: Microbiology 06/07/23 23:53 Urine, Catheterized Urine Culture - Final Enterococcus faecalis 06/07/23 21:24 Nasal Secretion SARS-CoV-2 Antigen (Rapid) - Final Rhythm Strip Rhythm Strip: Sinus Rhythm Rate: 63 Ectopy: PVC(s) and PAC(s) Physical Exam Narrative Alert and orient x3, no apparent distress S1, S2, RRR Lung sounds clear anteriorly and posteriorly Abdomen soft, nontender. PD catheter dressing clean, dry and intact. Observed PD catheter insertion site: no redness, drainage or swelling No edema Assessment & Plan Assessment/Plan (1) ESRD (end stage renal disease) on dialysis: (2) Adult failure to thrive: (3) Severe malnutrition: (4) Hypercalcemia: PLAN: Plan ESRD Failure to thrive She is well-known to me from office. Had slow progressive decompensation over the last she has lost significant amount of weight and is fairly cachectic. Not sure if she has any history of further rehab. Several hospitalizations, no m edical events. Following up with her daughter primary caregiver. Explained that she has progressively declining over the last several months. Advised to consider palliative approach. She was tearful but was expecting. She will talk to other family members and get back to us.
[2023-06-11 17:00] VITALS: BP 98/68; PULSE 60; RESP 18; TEMP 36.3; O2SAT 97
--- NOTE | 2023-06-11 18:26 | PCM.PN.HOSP ---
Reason for Visit Reason for Visit: Diagnoses Unspecified severe protein-calorie malnutrition (06/08/23) Hypercalcemia (06/08/23) End stage renal disease (06/08/23) Adult failure to thrive (06/08/23) Abnormal weight loss (06/08/23) Abnormal levels of other serum enzymes (06/08/23) Dependence on renal dialysis (06/08/23) Subjective Subjective Patient was seen and examined today, she is still refusing to eat, I talked with nutritional services concerning her care. Dr. Keene also called me and stated that he is having a discussion with the patient's family about palliative measures since the patient is not eating. Objective Data Objective Data Vital Signs: Vital Signs Temp Pulse Resp BP Pulse Ox O2 Del Method 97.3 F L 60 18 98/68 97 Room Air 06/11/23 17:00 06/11/23 17:00 06/11/23 17:00 06/11/23 17:00 06/11/23 17:00 06/11/23 17:00 Oxygen Delivery Method Room Air Weight: 49.2 kg Body Mass Index (BMI) 17.0 Intake & Output: Intake and Output for Last 24 Hours 06/09/23 06/10/23 06/11/23 23:59 23:59 23:59 Intake Total 800 / 1000 570 / 670 450 / 450 Balance 800 / 1000 570 / 670 450 / 450 Medical Nutrition Assessment Dietitian: Malnutrition Criteria Met Start: 06/08/23 12:18 Freq: Status: Active Protocol: Document 06/08/23 12:18 JOY (Rec: 06/08/23 12:19 JOY [id number]) Nutrition Malnutrition Evidence of Malnutrition Exists Yes Malnutrition (severe): Chronic Evidenced By Suboptimal Energy Intake ( Severe),Weight Loss (Moderate) ,Physical Changes (Severe) Clinical Problem Chronic Disease or Condition Related Malnutrition Etiology related to inadequate energy intake Signs/Symptoms as evidenced by pt consuming < 50% of usual po intake x >1 mo , fat/muscle weakness throughout body and BMI = 16.5 Status Active Problem Recommendation Dietitian Recommendations/Changes Continue liberal regular diet d/t signs/symptoms of malnutrition Continue ONS w/ medpass for increased nutrition if consumed Monitor for refeeding syndrome Will interview pt at time of follow up re: diet/wt hx and make additional rec as indicated. Lab / Micro Data 06/11/23 05:19 06/11/23 05:19 Labs: Laboratory Results - last 24 hr 06/11/23 05:19: WBC 6.3, RBC 2.92 L, Hgb 8.3 L, Hct 27.9 L, MCV 95.5, MCH 28.4, MCHC 29.7 L, RDW Std Deviation 47.7 H, RDW Coeff of [place] 13.7, Plt Count 207, MPV 12.1 H, Immature Gran % (Auto) 0.500, Neut % (Auto) 55.7, Lymph % (Auto) 32.5, [place] % (Auto) 8.6, Eos % (Auto) 1.9, Baso % (Auto) 0.8, Absolute Neuts (auto) 3.5, Absolute Lymphs (auto) 2.03, Nucleated RBC % 0, Sodium 133 L, Potassium 5.7 H, Chloride 105, Carbon Dioxide 23.0, Anion Gap 5, BUN 38 H, Creatinine 6.34 H, Estim Creat Clear Calc 6.05, Est GFR (MDRD) Af Amer 8 L, Est GFR (MDRD) Non-Af 7 L, BUN/Creatinine Ratio 6.0 L, Glucose 115 H, Calcium 9.9, Phosphorus 3.6, Magnesium 2.4, Total Bilirubin 0.40, AST 28, ALT 90 H, Alkaline Phosphatase 128 H, Total Protein 4.7 L, Albumin 2.2 L, Globulin 2.5, Albumin/Globulin Ratio 0.9 Micro: Microbiology 06/07/23 23:53 Urine, Catheterized Urine Culture - Final Enterococcus faecalis 06/07/23 21:24 Nasal Secretion SARS-CoV-2 Antigen (Rapid) - Final Radiography Diagnostic Testing: Radiology Impression Hepatobiliary Scan Nuclear Medicine 06/11/23 05:55 IMPRESSION: 1. ABNORMAL 99m Tc Mebrofenin hepatobiliary imaging examination. A. Nonvisualization of the gallbladder at 60, and 120 minutes post radiopharmaceutical administration is consistent with a high probability of cholecystitis (acute or chronic) in patients with intermediate to high pretest probabilities of hepatobiliary disease and who have fasted for more than 4 and less than 24 hours. (Deuce et al, Nucl Med [employer] pg. 35, 1980). Electronically Signed: Arden Mccurdy, at 13:31 EDT , Rhythm Strip Rhythm Strip: Sinus Rhythm Rate: 63 Ectopy: PVC(s) and PAC(s) Physical Exam Const alert and no apparent distress Constitutional Narrative: Patient appears cachectic and older than her stated age General Appearance: cooperative and well kempt Orientation / Consciousness: awake HEENT normocephalic, head/scalp atraumatic and moist oral mucous membranes Eyes PERRL, EOMs intact bilaterally and conjunctivae normal Neck supple, no JVD, thyroid normal and no carotid bruits General: trachea midline Resp normal respiratory effort, no retractions, no use of accessory muscles and clear to auscultation bilaterally Auscultation: Negative for rales, rhonchi or wheezes Cardio regular rate, regular rhythm, S1 normal heart sound, S2 normal heart sound, no murmurs, no rub and no gallops GI normal to inspection, nondistended, normoactive bowel sounds, soft to palpation, non-tender and non-distended GI Narrative: Dialysis catheter tube is in place in the left mid abdomen Extremity no clubbing, cyanosis or edema Skin no rashes or lesions noted General Skin Exam: no breakdown Neuro CN's II-XII intact bilaterally, moves all extremities, no focal motor deficits and no sensory deficits noted Sensorium / Orientation: awake and alert Speech: speech normal Psych Psych Narrative: Patient has depressed affect Assessment & Plan Assessment/Plan (1) Severe malnutrition: PLAN: Plan 1. Chronic severe protein and caloric malnutrition-as evidenced by patient consuming less than 50% of usual p.o. intake x1 in 1 month, fat/muscle weakness throughout the body, and BMI equal to 16.5, continue liberal regular diet, consider continue ONS with med Pass for increased nutrition-continue supportive care per nutritional services, patient unfortunately is continuing not to eat per her choice. Again nephrology is is discussing with the patient's family whether they want to make her palliative care. We will monitor, evaluate, assess, and treat #2 possible cholecystitis-patient had a positive HIDA scan today, I will have general surgery see the patient and evaluate for treatment, in my opinion, patient is a poor surgical candidate to undergo cholecystectomy at this time #3 end-stage renal disease on chronic peritoneal dialysis-continue peritoneal dialysis at this time, nephrology is participating in her care #4 generalized debility-patient is being seen by PT and OT, she will need placement in a retirement facility for inpatient rehab services. #5 coronary artery disease-continue present medications, will monitor, evaluate, assess, and treat Code time spent by myself addressing the patient's medical issues, reviewing all of her data, and collaborating with patient's care team: 35 minutes Charges/Coding Visit Charges Inpatient E&M: 81870 Subs Hosp L2
[2023-06-11 22:40] VITALS: BP 96/67; PULSE 70; RESP 16; TEMP 36.6; O2SAT 100
[2023-06-11] MEDS: 0.9% Saline Lock 10 ML Syringe IV (22:48)
[2023-06-11] MEDS: Docusate Sodium 100 MG Capsule PO (22:48)
[2023-06-12 04:50] VITALS: BMI 16.9
[2023-06-12 06:25] VITALS: BP 84/49; PULSE 72; RESP 16; TEMP 36.7; O2SAT 100
[2023-06-12] MEDS: Sodium Bicarbonate 650 MG Tablet PO ×2 (06:39→21:06)
[2023-06-12] MEDS: Dronabinol 2.5 MG Capsule PO ×2 (06:39→17:29)
[2023-06-12 06:53] LABS: Albumin, Serum 1.7 g/dL (3.2-5.0); BUN 30 mg/dL (7-18); BUN/Creat Ratio 4.7 RATIO (10-20); Calcium,Total 9.4 mg/dL (8.5-10.1); Chloride 106 mmol/L (98-107); Creatinine, Serum 6.37 mg/dL (0.55-1.02); EST Glomerular Filtration Rate 7 mL/min (>60); Est Glom Filt Rate - Afr Amer 8 mL/min (>60); Estimated Creatinine Clearance 6.01 ml/min; Glucose 106 mg/dL (74-106); Phosphorus 4.5 mg/dL (2.5-4.9); Potassium 3.5 mmol/L (3.5-5.1); Sodium Level 136 mmol/L (136-145)
--- NOTE | 2023-06-12 08:21 | CON.PCM.SX_ITS ---
Assessment & Plan Assessment/Plan (1) Cholelithiasis: QUALIFIERS: Cholelithiasis location: gallbladder Cholecystitis presence: with cholecystitis Cholecystitis acuity: acute and chronic Biliary obstruction: without biliary obstruction Qualified Code(s): K80.12 - Calculus of gallbladder with acute and chronic cholecystitis without obstruction PLAN: I have been consulted in conjunction with Dr. Kingston. He has independently evaluated this patient. Patient has had a significant recent weight loss of 20 pounds in the last 4-5 weeks. Patient is also malnourished as she is refusing to eat as food does not taste good and makes her nauseated. Patient does have known cholelithiasis with pericholecystic fluid surrounding the gallbladder. Patient also has tenderness in the RUQ. Patient is a high-risk surgical candidate due to her current status of malnutrition and overall failure to thrive. It was discussed with the patient if a laparoscopic cholecystectomy were pursued, the likelihood of the patient being extubated following the procedure is very high. Patient may have difficulty with pulmonary status post-operatively and there is a possibility that the patient may never come off of the vent. It was proposed to the patient to have a cholecystostomy tube placed to allow the gallbladder to drain and allow for the edema to resolve. At this time, patient is refusing to have a cholecystostomy tube placed. Third option would be to do nothing. Patient was left with multiple options to ponder. We will return and review options to determine the future plan, however patient is not a surgical candidate at this time. Patient has had the opportunity to ask and have questions answered. Patient verbally understands and will take time to think about her options and discuss them with her daughter. Thank you for allowing us to participate in this patient's care. HPI Consult Data Date of Consult: 06/12/23 HPI Narrative Reason for Consultation: Cholecystitis HPI Narrative: CHRISTIANO AWAD, is a 73 F who presents with failure to thrive and lack of appetite x several weeks with associated weight loss. Patient has a very flat affect and is slow to respond to questions. Patient was brought to the ED by her daughter secondary to the above symptoms. Patient has had approximately a 20 pound weight loss within the last several weeks. Patient is on dialysis via peritoneal dialysis catheter. She has been on dialysis approximately 3 years. Patient also has a transposed left upper extremity brachialbasilic AV fistula. Patient denies any concerns with dialysis. Patient notes food makes her feel nauseated. Patient notes food does not taste very good. She notes she is too weak to make herself a good meal. Patient has a history of gastric bypass in 1970. Patient denies any previous gallbladder issues. Patient denies having abdominal pain. Patient notes she is able to make all of her own decisions. Patient's daughter María Elena is her POA. Patient was evaluated in the ED earlier this month due to constipation. CT scan of the ab/pel was obtained demonstrating the following: IMPRESSION: Cholelithiasis. Increased stool. Small amount of new intraperitoneal fluid and free air presumably related to the stable peritoneal catheter. Clinical correlation required. Renal atrophy. Possible proctitis. Fluid-filled uterus. Pelvic ultrasound would be helpful for further characterization. Patient ended up having a large bowel movement in the ED following oral contrast and soap suds enemas. An Abdominal u/s was obtained in the ED which demonstrated cholelithiasis with trace pericholecystic fluid and reported positive sonographic Lau's sign. HIDA scan was also abnormal demonstrating nonvisualization of the gallbladder at 60 and 120 minutes. Patient's lab work is remarkable for elevated ALT and Alk phose, which appear to be declining. General surgery is consulted for evaluation and treatment of possible acute on chronic cholelithiasis. [facility] Medical History Acute kidney injury superimposed on CKD Ambulates with cane Anemia Anxiety Arterial steal syndrome Arthritis Atherosclerosis of coronary artery of [place] without angina pectoris Back pain Chronic renal failure, stage 5 Depression Dietary restriction Discoloration of skin Easy bruising ESRD (end stage renal disease) on dialysis Gastric reflux History of edema History of renal dialysis History of renal disease History of steroid therapy History of stress test Hypertension Peritoneal dialysis catheter in place Post-menopausal Renal calculi Rheumatoid arthritis Seasonal allergies Shortness of breath on exertion Superficial thrombophlebitis of arm Urinary tract infection Vascular dialysis catheter in place Wears glasses Home Medications magnesium oxide 400 mg PO DAILY supplement 12/17/21 [History Last Taken 10/10/22] mecobalamin (vitamin B12) 1,000 mcg chewable tablet (B12 Active) 2,000 mcg PO DAILY vitamin 12/17/21 [History Last Taken 10/10/22] ergocalciferol (vitamin D2) 1,250 mcg (50,000 unit) capsule (Vitamin D2) 1,250 mcg PO QWEEK vitamin 01/06/22 [History Last Taken 10/04/22] sodium bicarbonate 650 mg tablet 650 mg PO TID supplement 01/06/22 [History Last Taken 10/10/22] aspirin 81 mg tablet,delayed release 81 mg PO BREAKFAST heart health 10/10/22 [History Last Taken 10/10/22] calcitriol 0.5 mcg capsule 1 mcg PO DAILY bone health 12/21/22 [History Last Taken Unknown] carvedilol 3.125 mg tablet 3.125 mg PO DAILY heart #90 tabs 12/21/22 [Rx Last Taken Unknown] clopidogrel 75 mg tablet 75 mg PO DAILY blood thinner #90 tabs 12/21/22 [Rx Last Taken Unknown] potassium chloride 20 mEq tablet,extended release(part/cryst) 40 meq PO BID supplement 12/21/22 [History Last Taken Unknown] atorvastatin 40 mg tablet 40 mg PO QAM cholesterol 04/06/23 [History Last Taken Unknown] paroxetine HCl 20 mg tablet 20 mg PO DAILY depression 04/06/23 [History Last Taken Unknown] Allergy/AdvReac Type Severity Reaction Status Date / Time adhesive tape Allergy Rash Verified 06/07/23 21:14 amoxicillin [From Augmentin] Allergy Swelling Verified 06/07/23 21:14 srinivasan Allergy Itching Verified 06/07/23 21:14 cephalexin [From Keflex] Allergy Swelling Verified 06/07/23 21:14 clavulanic acid Allergy Swelling Verified 06/07/23 21:14 [From Augmentin] latex Allergy Rash Verified 06/07/23 21:14 Penicillins [PCN] Allergy Swelling Verified 06/07/23 21:14 sulfamethoxazole Allergy rash,swellling, Verified 06/07/23 21:14 [From Bactrim] itching trimethoprim [From Bactrim] Allergy rash,swellling, Verified 06/07/23 21:14 itching walnut Allergy Itching Verified 06/07/23 21:14 Family History Mother Heart disease Diabetes Hypertension Father Dementia Surgical History H/O hernia repair history Left AV Fistula Creation (~05/03/20) History of colonoscopy History of coronary artery stent placement (05/10/22) History of esophagogastroduodenoscopy (EGD) Hx of cystoscopy Hx of cystoscopy S/P bypass gastroenterostomy S/P coronary artery stent placement S/P hemorrhoidectomy Social History household members: other details: Lives with her daughter. Smoking Status: Never smoker alcohol intake: never substance use type: does not use ROS ROS Narrative Patient evaluated resting comfortably in bed. Constitutional Constitutional: Reports anorexia, change in weight, weakness and weight loss Eyes Eyes: Reports systems reviewed and no addt'l complaints, except as documented ENT HEENT: Reports systems reviewed and no addt'l complaints, except as documented Cardiovascular Cardiovascular: Reports systems reviewed and no addt'l complaints, except as documented Respiratory/Chest Respiratory/Chest: Reports systems reviewed and no addt'l complaints, except as documented Gastrointestinal Gastrointestinal: Reports anorexia, constipation, nausea and weight changes Genitourinary Genitourinary: Reports systems reviewed and no addt'l complaints, except as documented Musculoskeletal Musculoskeletal: Reports systems reviewed and no addt'l complaints, except as documented Integumentary Integumentary: Reports systems reviewed and no addt'l complaints, except as documented Neurologic Neurologic: Reports systems reviewed and no addt'l complaints, except as documented Psychiatric Psychiatric: Reports systems reviewed and no addt'l complaints, except as documented Endocrine Endocrinology: Reports systems reviewed and no addt'l complaints, except as documented Hematologic/Lymphatic Hematologic/Lymphatic: Reports systems reviewed and no addt'l complaints, except as documented Allergic/Immunologic Allergic/Immunologic: Reports systems reviewed and no addt'l complaints, except as documented Physical Exam Const oriented x3 and no apparent distress General Appearance: lethargic, frail and limp HEENT normocephalic Eyes PERRL Neck full ROM Lymph Lymphatic: no lymphadenopathy noted Resp normal respiratory effort and clear to auscultation bilaterally Cardio regular rate and regular rhythm GI soft to palpation GI Narrative: Abdomen- significant weight loss noted throughout the abdomen with patient's skin having a moderate amount of laxity. Auscultation: hypoactive bowel sounds Palpation: tender LUQ and RUQ (negative Lau's sign) no CVA tenderness Back/Spine no CVA tenderness Extremity normal to inspection Skin no rashes or lesions noted Neuro no focal motor deficits and no sensory deficits noted Psych Appearance: appropriate Attitude: withdrawn and guarded Activity / Motor Behavior: avoids eye contact Speech: slow Mood & Affect: depressed, sad and flat affect Thought Process: normal thought process Medical Records Data Medical Nutrition Assessment Dietitian: Malnutrition Criteria Met Start: 06/08/23 12:18 Freq: Status: Active Protocol: Document 06/08/23 12:18 SLA (Rec: 06/08/23 12:19 SLA [id number]) Nutrition Malnutrition Evidence of Malnutrition Exists Yes Malnutrition (severe): Chronic Evidenced By Suboptimal Energy Intake ( Severe),Weight Loss (Moderate) ,Physical Changes (Severe) Clinical Problem Chronic Disease or Condition Related Malnutrition Etiology related to inadequate energy intake Signs/Symptoms as evidenced by pt consuming < 50% of usual po intake x >1 mo , fat/muscle weakness throughout body and BMI = 16.5 Status Active Problem Recommendation Dietitian Recommendations/Changes Continue liberal regular diet d/t signs/symptoms of malnutrition Continue ONS w/ medpass for increased nutrition if consumed Monitor for refeeding syndrome Will interview pt at time of follow up re: diet/wt hx and make additional rec as indicated. Lab / Micro Data 06/11/23 05:19 06/12/23 06:00 Labs: Laboratory Results - last 24 hr 06/12/23 06:00: Sodium 136, Potassium 3.5, Chloride 106, Carbon Dioxide 22.0, BUN 30 H, Creatinine 6.37 H, Estim Creat Clear Calc 6.01, Est GFR (MDRD) Af Amer 8 L, Est GFR (MDRD) Non-Af 7 L, BUN/Creatinine Ratio 4.7 L, Glucose 106, Calcium 9.4, Phosphorus 4.5, Albumin 1.7 L Rhythm Strip Rhythm Strip: Sinus Rhythm Rate: 63 Ectopy: PVC(s) and PAC(s) Radiology Impression Hepatobiliary Scan Nuclear Medicine 06/11/23 05:55 IMPRESSION: 1. ABNORMAL 99m Tc Mebrofenin hepatobiliary imaging examination. A. Nonvisualization of the gallbladder at 60, and 120 minutes post radiopharmaceutical administration is consistent with a high probability of cholecystitis (acute or chronic) in patients with intermediate to high pretest probabilities of hepatobiliary disease and who have fasted for more than 4 and less than 24 hours. (Deuce et al, Nucl Med [employer] pg. 35, 1981). Electronically Signed: Arden Mccurdy, at 13:31 EDT , Charges/Coding Visit Charges Office Visits / Consults: [id number] IP Consult L3
[2023-06-12 08:25] VITALS: BP 84/43; PULSE 69; RESP 16; TEMP 36.7; O2SAT 98
--- NOTE | 2023-06-12 08:58 | CASEMGMT ---
Discharge Planning Msgs sent to both [facility] and [facility] via [employer] regarding status of referral. Awaiting responses. Mariam Dobbins, Discharge Planning Asst.
[2023-06-12] MEDS: Aspirin E.C. 81 MG Tablet PO (09:19)
--- NOTE | 2023-06-12 09:48 | PCM.PN.REN ---
Subjective Subjective Resting in bed. A&O. No complaints. Objective Data Objective Data Vital Signs: Vital Signs Temp Pulse Resp BP Pulse Ox O2 Del Method 98.0 F 72 16 84/49 L 100 Room Air 06/12/23 06:25 06/12/23 06:25 06/12/23 06:25 06/12/23 06:25 06/12/23 06:25 06/12/23 06:25 Oxygen Delivery Method Room Air Weight: 49.1 kg Body Mass Index (BMI) 16.9 Intake & Output: Intake and Output for Last 24 Hours 06/10/23 06/11/23 06/12/23 23:59 23:59 23:59 Intake Total 570 / 670 600 / 700 150 / 150 Output Total 200 / 200 Balance 570 / 670 400 / 500 150 / 150 Medical Nutrition Assessment Dietitian: Malnutrition Criteria Met Start: 06/08/23 12:18 Freq: Status: Active Protocol: Document 06/08/23 12:18 SLA (Rec: 06/08/23 12:19 SLA [id number]) Nutrition Malnutrition Evidence of Malnutrition Exists Yes Malnutrition (severe): Chronic Evidenced By Suboptimal Energy Intake ( Severe),Weight Loss (Moderate) ,Physical Changes (Severe) Clinical Problem Chronic Disease or Condition Related Malnutrition Etiology related to inadequate energy intake Signs/Symptoms as evidenced by pt consuming < 50% of usual po intake x >1 mo , fat/muscle weakness throughout body and BMI = 16.5 Status Active Problem Recommendation Dietitian Recommendations/Changes Continue liberal regular diet d/t signs/symptoms of malnutrition Continue ONS w/ medpass for increased nutrition if consumed Monitor for refeeding syndrome Will interview pt at time of follow up re: diet/wt hx and make additional rec as indicated. Lab / Micro Data 06/11/23 05:19 06/12/23 06:00 Labs: Laboratory Results - last 24 hr 06/12/23 06:00: Sodium 136, Potassium 3.5, Chloride 106, Carbon Dioxide 22.0, BUN 30 H, Creatinine 6.37 H, Estim Creat Clear Calc 6.01, Est GFR (MDRD) Af Amer 8 L, Est GFR (MDRD) Non-Af 7 L, BUN/Creatinine Ratio 4.7 L, Glucose 106, Calcium 9.4, Phosphorus 4.5, Albumin 1.7 L Micro: Microbiology 06/07/23 23:53 Urine, Catheterized Urine Culture - Final Enterococcus faecalis 06/07/23 21:24 Nasal Secretion SARS-CoV-2 Antigen (Rapid) - Final Radiography Diagnostic Testing: Radiology Impression Hepatobiliary Scan Nuclear Medicine 06/11/23 05:55 IMPRESSION: 1. ABNORMAL 99m Tc Mebrofenin hepatobiliary imaging examination. A. Nonvisualization of the gallbladder at 60, and 120 minutes post radiopharmaceutical administration is consistent with a high probability of cholecystitis (acute or chronic) in patients with intermediate to high pretest probabilities of hepatobiliary disease and who have fasted for more than 4 and less than 24 hours. (Deuce et al, Nucl Med Lauren [employer] pg. 35, 1981). Electronically Signed: Arden Kaz, at 13:31 EDT , Rhythm Strip Rhythm Strip: Sinus Rhythm Rate: 63 Ectopy: PVC(s) and PAC(s) Physical Exam Narrative Alert and orient x3, no apparent distress S1, S2, RRR Lung sounds clear anteriorly and posteriorly Abdomen soft, nontender. PD catheter dressing clean, dry and intact. No edema Assessment & Plan Assessment/Plan (1) ESRD (end stage renal disease) on dialysis: (2) Adult failure to thrive: (3) Severe malnutrition: (4) Hypercalcemia: PLAN: Plan - ESRD on PD support. So far tolerating PD using all 1.5% dianeal. Continue PD tonight using same solution. - Failure to thrive. Patient well known to Dr. Keene. Had slow progressive decline over the past few months, she has lost significant amount of weight and is fairly cachectic. She is not wanting to eat despite saying that she does want to eat and recently has not been taking her meds at home. Bps low, stop coreg. off calcium based meds. Recommend Palliative care/hospice consult. Spoke with patient and daughter María Elena and are in agreement. Per discussion with María Elena today, she understands her mother is declining, failing, no taking her meds and would prefer her home vs at an ECF during end of life days. - discussed with Dr. Neumann
--- NOTE | 2023-06-12 11:59 | CASEMGMT ---
Social Work MARY spoke with [facility]uki nephorology SERGIO who states she has spoke with pt dgt María Elena regarding pts medical decline and appropriateness for hospice/palliative medicine. Per Yuki, María Elena is realistic of pt's condition and would like further information regarding hospice options. MARY placed call to pt dgt María Elena and discussed hospice and palliative medicine options. María Elena agreeable to referral for a consultation. MARY discuss hospice options and María Elena choosing [facility]. Clinicals faxed to [facility] and VM left on the [facility] referral line requesting pt dgt María Elena be contacted to set up an appointment. PAULY Tanner
[2023-06-12 16:00] VITALS: BP 100/61; PULSE 66; RESP 18; TEMP 36.8; O2SAT 98
--- NOTE | 2023-06-12 18:48 | PCM.PN.HOSP ---
Reason for Visit Reason for Visit: Diagnoses Unspecified severe protein-calorie malnutrition (06/08/23) Hypercalcemia (06/08/23) Calculus of gallbladder with acute and chronic cholecystitis without obstruction (06/08/23) End stage renal disease (06/08/23) Adult failure to thrive (06/08/23) Abnormal weight loss (06/08/23) Abnormal levels of other serum enzymes (06/08/23) Dependence on renal dialysis (06/08/23) Subjective Subjective Patient was seen and examined today, general surgery talk with the patient but did not have a meaningful conversation with the patient, she mostly refused to talk to general surgery. Patient's daughter has asked for hospice to evaluate the patient, they are supposed to meet with them today. Objective Data Objective Data Vital Signs: Vital Signs Temp Pulse Resp BP Pulse Ox O2 Del Method 98.3 F 66 18 100/61 98 Room Air 06/12/23 16:00 06/12/23 16:00 06/12/23 16:00 06/12/23 16:00 06/12/23 16:00 06/12/23 17:00 Oxygen Delivery Method Room Air Weight: 49.1 kg Body Mass Index (BMI) 16.9 Intake & Output: Intake and Output for Last 24 Hours 06/10/23 06/11/23 06/12/23 23:59 23:59 23:59 Intake Total 570 / 670 600 / 700 350 / 350 Output Total 200 / 200 Balance 570 / 670 400 / 500 350 / 350 Medical Nutrition Assessment Dietitian: Malnutrition Criteria Met Start: 06/08/23 12:18 Freq: Status: Active Protocol: Document 06/08/23 12:18 JOY (Rec: 06/08/23 12:19 JOY [id number]) Nutrition Malnutrition Evidence of Malnutrition Exists Yes Malnutrition (severe): Chronic Evidenced By Suboptimal Energy Intake ( Severe),Weight Loss (Moderate) ,Physical Changes (Severe) Clinical Problem Chronic Disease or Condition Related Malnutrition Etiology related to inadequate energy intake Signs/Symptoms as evidenced by pt consuming < 50% of usual po intake x >1 mo , fat/muscle weakness throughout body and BMI = 16.5 Status Active Problem Recommendation Dietitian Recommendations/Changes Continue liberal regular diet d/t signs/symptoms of malnutrition Continue ONS w/ medpass for increased nutrition if consumed Monitor for refeeding syndrome Will interview pt at time of follow up re: diet/wt hx and make additional rec as indicated. Lab / Micro Data 06/11/23 05:19 06/12/23 06:00 Labs: Laboratory Results - last 24 hr 06/12/23 06:00: Sodium 136, Potassium 3.5, Chloride 106, Carbon Dioxide 22.0, BUN 30 H, Creatinine 6.37 H, Estim Creat Clear Calc 6.01, Est GFR (MDRD) Af Amer 8 L, Est GFR (MDRD) Non-Af 7 L, BUN/Creatinine Ratio 4.7 L, Glucose 106, Calcium 9.4, Phosphorus 4.5, Albumin 1.7 L Micro: Microbiology 06/07/23 23:53 Urine, Catheterized Urine Culture - Final Enterococcus faecalis 06/07/23 21:24 Nasal Secretion SARS-CoV-2 Antigen (Rapid) - Final Rhythm Strip Rhythm Strip: Sinus Rhythm Rate: 63 Ectopy: PVC(s) and PAC(s) Physical Exam Narrative alert and no apparent distress Constitutional Narrative: Patient appears cachectic and older than her stated age General Appearance: cooperative and well kempt Orientation / Consciousness: awake, patient does not carry on extended conversations with this examiner HEENT normocephalic, head/scalp atraumatic and moist oral mucous membranes Eyes PERRL, EOMs intact bilaterally and conjunctivae normal Neck supple, no JVD, thyroid normal and no carotid bruits General: trachea midline Resp normal respiratory effort, no retractions, no use of accessory muscles and clear to auscultation bilaterally Auscultation: Negative for rales, rhonchi or wheezes Cardio regular rate, regular rhythm, S1 normal heart sound, S2 normal heart sound, no murmurs, no rub and no gallops GI normal to inspection, nondistended, normoactive bowel sounds, soft to palpation, non-tender and non-distended GI Narrative: Dialysis catheter tube is in place in the left mid abdomen Extremity no clubbing, cyanosis or edema Skin no rashes or lesions noted General Skin Exam: no breakdown Neuro CN's II-XII intact bilaterally, moves all extremities, no focal motor deficits and no sensory deficits noted Sensorium / Orientation: awake and alert Speech: speech normal Psych Psych Narrative: Patient has depressed affect Assessment & Plan Assessment/Plan (1) Severe malnutrition: PLAN: Plan 1. Chronic severe protein and caloric malnutrition-as evidenced by patient consuming less than 50% of usual p.o. intake x1 in 1 month, fat/muscle weakness throughout the body, and BMI equal to 16.5, continue liberal regular diet, consider continue ONS with med Pass for increased nutrition-continue supportive care per nutritional services, patient unfortunately is continuing not to eat per her choice. Again nephrology is is discussing with the patient's family whether they want to make her palliative care. We will monitor, evaluate, assess, and treat #2 Chronic cholecystitis-patient is a poor surgical candidate at this time, patient is having a dialogue with hospice today, monitor, evaluate, assess, and treat as indicated #3 end-stage renal disease on chronic peritoneal dialysis-continue peritoneal dialysis at this time, nephrology is participating in her care #4 generalized debility-patient is being seen by PT and OT, again patient and her daughter will meet with hospice today #5 coronary artery disease-continue present medications, will monitor, evaluate, assess, and treat Code time spent by myself addressing the patient's medical issues, reviewing all of her data, and collaborating with patient's care team: 25 minutes Charges/Coding Visit Charges Inpatient E&M: 31273 [facility] Hosp L1
[2023-06-12 21:00] VITALS: BP 92/48; PULSE 61; RESP 16; TEMP 36.8; O2SAT 100
[2023-06-12] MEDS: Heparin Injection (Vial) 5,000 UNIT/ML VIAL 5000 UNIT SC (21:06)
[2023-06-12] MEDS: Linezolid 600 MG Tablet PO (21:06)
[2023-06-12] MEDS: Famotidine 20 MG Tablet PO (21:06)
[2023-06-13 03:00] VITALS: BP 98/52; PULSE 64; RESP 16; TEMP 36.6; O2SAT 95
[2023-06-13 03:24] VITALS: BMI 16.9
[2023-06-13] MEDS: Dronabinol 2.5 MG Capsule PO ×2 (06:18→17:53)
[2023-06-13] MEDS: Sodium Bicarbonate 650 MG Tablet PO ×3 (06:18→22:34)
[2023-06-13 07:29] VITALS: BP 82/53; PULSE 65; RESP 16; TEMP 36.6; O2SAT 99
[2023-06-13] MEDS: Aspirin E.C. 81 MG Tablet PO (07:34)
[2023-06-13 08:00] VITALS: BP 95/64; PULSE 79; RESP 18; O2SAT 97
--- NOTE | 2023-06-13 09:36 | CASEMGMT ---
Social Work SW placed call to [facility]. A meeting is set up today at 4pm with pt and dgt to discuss hospice services. Nursing updated. PAULY Tanner
[2023-06-13] MEDS: Heparin Injection (Vial) 5,000 UNIT/ML VIAL 5000 UNIT SC (09:50)
[2023-06-13] MEDS: Clopidogrel Bisulfate 75 MG Tablet PO (09:50)
[2023-06-13] MEDS: Atorvastatin Calcium 40 MG Tablet PO (09:50)
[2023-06-13] MEDS: Docusate Sodium 100 MG Capsule PO ×2 (09:50→22:34)
[2023-06-13] MEDS: Linezolid 600 MG Tablet PO (09:50)
[2023-06-13] MEDS: Magnesium Chloride 64 MG Delay Rel.Tablet 128 MG PO (09:50)
--- NOTE | 2023-06-13 16:00 | NURSING ---
into room as heard bedexit alarm. found pt attempting to ambulate to bathroom with daughter. noted hospice staff at end of bed. daughter states its ok I'm helping her explained to pt's daughter pt had near syncopal episode with therapy this a.m. when attempting to sit up to side of bed. at that time pt's legs started to give out. label coder also and MATTRESS FINISHER Oly also to room. This nurse daughter and charge nurse sat patient in folding chair. noted decreased reponsiveness. This RN and label coder max assisted patient into bed with HOB decreased. pt more arrousable. explained situation to daughter regarding this a.m and reason for bed alarm. purewick replaced with chancellor and patient reeducated on purewick and not getting oob at this time. no distress noted. pt A&ox2. bedexit maintained call light within reach. daughter states when she is done talking with hospice/pallative she will reconnect patient to peritoneal dialysis.
[2023-06-13 16:14] VITALS: BP 109/73; PULSE 72; RESP 18; TEMP 36.7; O2SAT 96
--- NOTE | 2023-06-13 18:08 | PCM.PN.HOSP ---
Reason for Visit Reason for Visit: Diagnoses Unspecified severe protein-calorie malnutrition (06/08/23) Hypercalcemia (06/08/23) Calculus of gallbladder with acute and chronic cholecystitis without obstruction (06/08/23) End stage renal disease (06/08/23) Adult failure to thrive (06/08/23) Abnormal weight loss (06/08/23) Abnormal levels of other serum enzymes (06/08/23) Dependence on renal dialysis (06/08/23) Subjective Subjective Seen and examined today, her daughter and the patient met with hospice today, hospice will not allow the patient to undergo dialysis and the patient wants to continue dialysis, I had a lengthy discussion with the patient and her daughter this afternoon in the room today and explained to the patient that continue dialysis would not be of any benefit if she does not eat. She says that she will promised to eat, I told her that over the last 3 to 4 months she has not been eating despite multiple prompts to do so. At this time, I do not believe the patient is able to go home, daughter is not able to take care of her and the patient agrees to go to an extended care facility for short-term rehab services, in the meantime, I have decided to place her on Remeron and increase her Marinol. I have also decided to stop her Zyvox, give her an amoxicillin dose to see if she tolerates this and she could be segued into being placed on amoxicillin for her UTI. Patient grew out Enterococcus which is sensitive to penicillin. Daughter is okay with trying to give the patient a dose of penicillin to see if she has any untoward reaction. Objective Data Objective Data Vital Signs: Vital Signs Temp Pulse Resp BP Pulse Ox O2 Del Method 98.0 F 72 18 109/73 96 Room Air 06/13/23 16:14 06/13/23 16:14 06/13/23 16:14 06/13/23 16:14 06/13/23 16:14 06/13/23 16:14 Oxygen Delivery Method Room Air Weight: 49 kg Body Mass Index (BMI) 16.9 Intake & Output: Intake and Output for Last 24 Hours 06/11/23 06/12/23 06/13/23 23:59 23:59 23:59 Intake Total 600 / 700 350 / 350 315 / 315 Output Total 200 / 200 300 / 300 Balance 400 / 500 350 / 300 15 / 15 Medical Nutrition Assessment Dietitian: Malnutrition Criteria Met Start: 06/08/23 12:18 Freq: Status: Active Protocol: Document 06/08/23 12:18 JOY (Rec: 06/08/23 12:19 JOY [id number]) Nutrition Malnutrition Evidence of Malnutrition Exists Yes Malnutrition (severe): Chronic Evidenced By Suboptimal Energy Intake ( Severe),Weight Loss (Moderate) ,Physical Changes (Severe) Clinical Problem Chronic Disease or Condition Related Malnutrition Etiology related to inadequate energy intake Signs/Symptoms as evidenced by pt consuming < 50% of usual po intake x >1 mo , fat/muscle weakness throughout body and BMI = 16.5 Status Active Problem Recommendation Dietitian Recommendations/Changes Continue liberal regular diet d/t signs/symptoms of malnutrition Continue ONS w/ medpass for increased nutrition if consumed Monitor for refeeding syndrome Will interview pt at time of follow up re: diet/wt hx and make additional rec as indicated. Lab / Micro Data 06/11/23 05:19 06/12/23 06:00 Micro: Microbiology 06/07/23 23:53 Urine, Catheterized Urine Culture - Final Enterococcus faecalis 06/07/23 21:24 Nasal Secretion SARS-CoV-2 Antigen (Rapid) - Final Rhythm Strip Rhythm Strip: Sinus Rhythm Rate: 63 Ectopy: PVC(s) and PAC(s) Physical Exam Narrative alert and no apparent distress Constitutional Narrative: Patient appears cachectic and older than her stated age General Appearance: cooperative and well kempt Orientation / Consciousness: awake, patient able to converse with this examiner today without a problem HEENT normocephalic, head/scalp atraumatic and moist oral mucous membranes Eyes PERRL, EOMs intact bilaterally and conjunctivae normal Neck supple, no JVD, thyroid normal and no carotid bruits General: trachea midline Resp normal respiratory effort, no retractions, no use of accessory muscles and clear to auscultation bilaterally Auscultation: Negative for rales, rhonchi or wheezes Cardio regular rate, regular rhythm, S1 normal heart sound, S2 normal heart sound, no murmurs, no rub and no gallops GI normal to inspection, nondistended, normoactive bowel sounds, soft to palpation, non-tender and non-distended GI Narrative: Dialysis catheter tube is in place in the left mid abdomen Extremity no clubbing, cyanosis or edema Skin no rashes or lesions noted General Skin Exam: no breakdown Neuro CN's II-XII intact bilaterally, moves all extremities, no focal motor deficits and no sensory deficits noted Sensorium / Orientation: awake and alert Speech: speech normal Psych Psych Narrative: Patient has depressed affect Assessment & Plan Assessment/Plan (1) Abnormal weight loss: (2) Severe malnutrition: PLAN: Plan 1. Chronic severe protein and caloric malnutrition-as evidenced by patient consuming less than 50% of usual p.o. intake x1 in 1 month, fat/muscle weakness throughout the body, and BMI equal to 16.5, continue liberal regular diet, consider continue ONS with med Pass for increased nutrition-continue supportive care per nutritional services, patient unfortunately is continuing not to eat per her choice. Again nephrology is is discussing with the patient's family whether they want to make her palliative care. We will monitor, evaluate, assess, and treat. I have elected to increase the patient's Marinol to 5 mg twice daily and place her on Remeron. #2 Chronic cholecystitis-patient is a poor surgical candidate at this time, continue to monitor, evaluate, assess, and treat #3 end-stage renal disease on chronic peritoneal dialysis-continue peritoneal dialysis at this time, nephrology is participating in her care #4 generalized debility-patient is being seen by PT and OT, we will attempt to get the patient placed in a fpc facility for at least short-term rehab services. #5 coronary artery disease-continue present medications, will monitor, evaluate, assess, and treat Code time spent by myself addressing the patient's medical issues, reviewing all of her data, and collaborating with patient's care team: 35 minutes Charges/Coding Visit Charges Inpatient E&M: 99105 [facility]s Hosp L2
[2023-06-13] MEDS: Amoxicillin 250 MG Capsule PO (19:15)
[2023-06-13 22:23] VITALS: BP 86/52; PULSE 83; RESP 16; TEMP 36.6; O2SAT 100
[2023-06-13] MEDS: Mirtazapine 15 MG Tablet PO (22:34)
[2023-06-14 02:50] VITALS: BP 90/56; PULSE 70; RESP 18; TEMP 36.6; O2SAT 100
[2023-06-14 05:42] VITALS: BMI 16.7
[2023-06-14] MEDS: Sodium Bicarbonate 650 MG Tablet PO ×3 (06:10→22:33)
[2023-06-14] MEDS: Dronabinol 2.5 MG Capsule 5 MG PO ×2 (06:47→17:36)
--- NOTE | 2023-06-14 09:07 | CASEMGMT ---
Discharge Planning Updates sent to both [facility] and [facility] via [facility]. Mariam Dobbins, Discharge Planning Asst.
[2023-06-14 09:31] VITALS: BP 104/55; PULSE 76; RESP 16; TEMP 36.5; O2SAT 96
[2023-06-14] MEDS: Docusate Sodium 100 MG Capsule PO ×2 (09:35→22:33)
[2023-06-14] MEDS: Clopidogrel Bisulfate 75 MG Tablet PO (09:35)
[2023-06-14] MEDS: Atorvastatin Calcium 40 MG Tablet PO (09:35)
[2023-06-14] MEDS: Heparin Injection (Vial) 5,000 UNIT/ML VIAL 5000 UNIT SC ×2 (09:35→22:33)
[2023-06-14] MEDS: Aspirin E.C. 81 MG Tablet PO (09:35)
[2023-06-14] MEDS: Magnesium Chloride 64 MG Delay Rel.Tablet 128 MG PO (09:35)
--- NOTE | 2023-06-14 09:56 | CASEMGMT ---
Social Work MARY spoke with pt and discussed outcome of hospice consult. Per physician, pt does not want to stop peritoneal dialysis and would like to get stronger. Plan is for SNF, not hospice. MARY met with pt to discuss discharge plan. Pt states she will continue with peritoneal dialysis and return home with jen Ring. With pt permission, phone call to dgt María Elena to clarify dc plan. María Elena confirms that pt will not start on hospice at this time as she wants to continue with peritoneal dialysis. María Elena is not able to care for pt at this time due to weakness and believes pt will need SNF. María Elena states she will reassess pt after a few weeks of therapy and determine if they will continue with dialysis or if hospice is warranted at that time. MARY updated María Elena that [facility] does not have beds, [facility] cannot accomodate peritoneal dialysis. [facility] and [facility] are still considering. MARY met with pt and discussed conversation with María Elena. Pt is agreeable to go to SNF at this time. Plan: [facility] vs [facility], pending acceptance PAULY Tanner
--- NOTE | 2023-06-14 10:12 | CASEMGMT ---
Discharge Planning Per patients daughter, her dialysis is managed through [facility] in [place] and she is a patient at [facility]. Mariam Dobbins, Discharge Planning Asst.
[2023-06-14] MEDS: AMOXICILLIN 500 MG CAPSULE PO (11:32)
--- NOTE | 2023-06-14 12:30 | CASEMGMT ---
Social Work SW recevied a call from Vivien at [facility] ([phone]) who is requesting [place] [facility] [place] trained staff in peritoneal dialysis. MARY informed Vivien that pt's choices are [facility] and [facility]. Vivien states these facilities do not have trained peritoneal dialysis staff. Phone call to pt's daughter María Elena and reported the above. María Elena agreeable to referral to [facility]. RUT gallery assistant to send referral. PAULY Tanner
--- NOTE | 2023-06-14 13:00 | CASEMGMT ---
Discharge Planning Referrals was sent to [facility] via [facility]. Mariam Dobbins, Discharge Planning Asst.
[2023-06-14 14:51] VITALS: BP 105/87; PULSE 80; RESP 16; TEMP 36.6; O2SAT 100
--- NOTE | 2023-06-14 15:01 | PCM.PN.REN ---
Subjective Subjective no new complaints Objective Data Objective Data Vital Signs: Vital Signs Temp Pulse Resp BP Pulse Ox O2 Del Method 97.8 F 80 16 105/87 H 100 Room Air 06/14/23 14:51 06/14/23 14:51 06/14/23 14:51 06/14/23 14:51 06/14/23 14:51 06/14/23 14:51 Oxygen Delivery Method Room Air Weight: 48.5 kg Body Mass Index (BMI) 16.7 Intake & Output: Intake and Output for Last 24 Hours 06/12/23 06/13/23 06/14/23 23:59 23:59 23:59 Intake Total 350 / 350 315 / 315 200 / 200 Output Total 300 / 300 200 / 200 Balance 350 / 300 15 / 15 0 / 0 Medical Nutrition Assessment Dietitian: Malnutrition Criteria Met Start: 06/08/23 12:18 Freq: Status: Active Protocol: Document 06/08/23 12:18 SLA (Rec: 06/08/23 12:19 SLA [id number]) Nutrition Malnutrition Evidence of Malnutrition Exists Yes Malnutrition (severe): Chronic Evidenced By Suboptimal Energy Intake ( Severe),Weight Loss (Moderate) ,Physical Changes (Severe) Clinical Problem Chronic Disease or Condition Related Malnutrition Etiology related to inadequate energy intake Signs/Symptoms as evidenced by pt consuming < 50% of usual po intake x >1 mo , fat/muscle weakness throughout body and BMI = 16.5 Status Active Problem Recommendation Dietitian Recommendations/Changes Continue liberal regular diet d/t signs/symptoms of malnutrition Continue ONS w/ medpass for increased nutrition if consumed Monitor for refeeding syndrome Will interview pt at time of follow up re: diet/wt hx and make additional rec as indicated. Lab / Micro Data 06/11/23 05:19 06/12/23 06:00 Micro: Microbiology 06/07/23 23:53 Urine, Catheterized Urine Culture - Final Enterococcus faecalis 06/07/23 21:24 Nasal Secretion SARS-CoV-2 Antigen (Rapid) - Final Rhythm Strip Rhythm Strip: Sinus Rhythm Rate: 63 Ectopy: PVC(s) and PAC(s) Physical Exam Narrative Alert and orient x3, no apparent distress S1, S2, RRR Lung sounds clear anteriorly and posteriorly Abdomen soft, nontender. PD catheter dressing clean, dry and intact. No edema Assessment & Plan Assessment/Plan (1) ESRD (end stage renal disease) on dialysis: (2) Adult failure to thrive: (3) Severe malnutrition: (4) Hypercalcemia: PLAN: Plan - ESRD on PD support. So far tolerating PD using all 1.5% dianeal. Continue PD tonight using same solution. - Failure to thrive. Met with hospice yesterday, says she is not ready to give up yet. Would like to continue. Discussed with hospitalist. Likely discharge to rehab and then home with daughter.
--- NOTE | 2023-06-14 16:01 | PCM.PN.HOSP ---
Reason for Visit Reason for Visit: Diagnoses Unspecified severe protein-calorie malnutrition (06/08/23) Hypercalcemia (06/08/23) Calculus of gallbladder with acute and chronic cholecystitis without obstruction (06/08/23) End stage renal disease (06/08/23) Adult failure to thrive (06/08/23) Abnormal weight loss (06/08/23) Abnormal levels of other serum enzymes (06/08/23) Dependence on renal dialysis (06/08/23) Subjective Subjective Patient was seen and examined today, I emphasized that she must eat, however, patient did not eat any breakfast and she ate approximately 50 to 60% of her lunch. We are attempting to place the patient in a retirement facility for short-term rehab services, this may be difficult due to the fact she requires peritoneal dialysis. Objective Data Objective Data Vital Signs: Vital Signs Temp Pulse Resp BP Pulse Ox O2 Del Method 97.8 F 80 16 105/87 H 100 Room Air 06/14/23 14:51 06/14/23 14:51 06/14/23 14:51 06/14/23 14:51 06/14/23 14:51 06/14/23 14:51 Oxygen Delivery Method Room Air Weight: 48.5 kg Body Mass Index (BMI) 16.7 Intake & Output: Intake and Output for Last 24 Hours 06/12/23 06/13/23 06/14/23 23:59 23:59 23:59 Intake Total 350 / 350 315 / 315 200 / 200 Output Total 300 / 300 200 / 200 Balance 350 / 300 15 / 15 0 / 0 Medical Nutrition Assessment Dietitian: Malnutrition Criteria Met Start: 06/08/23 12:18 Freq: Status: Active Protocol: Document 06/08/23 12:18 JOY (Rec: 06/08/23 12:19 JOY [id number]) Nutrition Malnutrition Evidence of Malnutrition Exists Yes Malnutrition (severe): Chronic Evidenced By Suboptimal Energy Intake ( Severe),Weight Loss (Moderate) ,Physical Changes (Severe) Clinical Problem Chronic Disease or Condition Related Malnutrition Etiology related to inadequate energy intake Signs/Symptoms as evidenced by pt consuming < 50% of usual po intake x >1 mo , fat/muscle weakness throughout body and BMI = 16.5 Status Active Problem Recommendation Dietitian Recommendations/Changes Continue liberal regular diet d/t signs/symptoms of malnutrition Continue ONS w/ medpass for increased nutrition if consumed Monitor for refeeding syndrome Will interview pt at time of follow up re: diet/wt hx and make additional rec as indicated. Lab / Micro Data 06/11/23 05:19 06/12/23 06:00 Micro: Microbiology 06/07/23 23:53 Urine, Catheterized Urine Culture - Final Enterococcus faecalis 06/07/23 21:24 Nasal Secretion SARS-CoV-2 Antigen (Rapid) - Final Rhythm Strip Rhythm Strip: Sinus Rhythm Rate: 63 Ectopy: PVC(s) and PAC(s) Physical Exam Narrative alert and no apparent distress Constitutional Narrative: Patient appears cachectic and older than her stated age General Appearance: cooperative and well kempt Orientation / Consciousness: awake, patient able to converse with this examiner today without a problem HEENT normocephalic, head/scalp atraumatic and moist oral mucous membranes Eyes PERRL, EOMs intact bilaterally and conjunctivae normal Neck supple, no JVD, thyroid normal and no carotid bruits General: trachea midline Resp normal respiratory effort, no retractions, no use of accessory muscles and clear to auscultation bilaterally Auscultation: Negative for rales, rhonchi or wheezes Cardio regular rate, regular rhythm, S1 normal heart sound, S2 normal heart sound, no murmurs, no rub and no gallops GI normal to inspection, nondistended, normoactive bowel sounds, soft to palpation, non-tender and non-distended GI Narrative: Dialysis catheter tube is in place in the left mid abdomen Extremity no clubbing, cyanosis or edema Skin no rashes or lesions noted General Skin Exam: no breakdown Neuro CN's II-XII intact bilaterally, moves all extremities, no focal motor deficits and no sensory deficits noted Sensorium / Orientation: awake and alert Speech: speech normal Psych Psych Narrative: Patient has depressed affect Assessment & Plan Assessment/Plan (1) Severe malnutrition: (2) Abnormal weight loss: PLAN: Plan 1. Chronic severe protein and caloric malnutrition-as evidenced by patient consuming less than 50% of usual p.o. intake x1 in 1 month, fat/muscle weakness throughout the body, and BMI equal to 16.5, continue liberal regular diet, consider continue ONS with med Pass for increased nutrition-continue supportive care per nutritional services, patient unfortunately is continuing not to eat per her choice. Again nephrology is is discussing with the patient's family whether they want to make her palliative care. We will monitor, evaluate, assess, and treat. Patient is on Remeron and Marinol, continue to encourage oral intake. #2 Chronic cholecystitis-patient is a poor surgical candidate at this time, continue to monitor, evaluate, assess, and treat #3 end-stage renal disease on chronic peritoneal dialysis-continue peritoneal dialysis at this time, nephrology is participating in her care #4 generalized debility-patient is being seen by PT and OT, we will attempt to get the patient placed in a retirement facility for at least short-term rehab services. #5 coronary artery disease-continue present medications, will monitor, evaluate, assess, and treat Code time spent by myself addressing the patient's medical issues, reviewing all of her data, and collaborating with patient's care team: 35 minutes Charges/Coding Visit Charges Inpatient E&M: 00376 Subs Hosp L2
--- NOTE | 2023-06-14 16:22 | CASEMGMT ---
Social Work MARY spoke with Michelle at [facility] ([phone]). They do not have a contract with [facility] for the peritoneal dialysis and it will take several days to get it if they are able. MARY received message from [facility] that they expect the contract with [facility] to be sent to them soon, but need to confirm that pt will bring her machine and supplies. Phone call to María Elena, pt's dgt and above explained. María Elena agreeable to placement at [facility]. María Elena will bring Machine and all supplies and order more when needed. MARY updated [facility] of this and that pt is ready for discharge when contract is obtained. Plan: Pt to admit to [facility] when [facility] contract is obtained. PAULY Tanner
[2023-06-14 20:39] VITALS: BP 97/60; PULSE 81; RESP 16; TEMP 36.3; O2SAT 99
[2023-06-14] MEDS: Mirtazapine 15 MG Tablet PO (22:33)
[2023-06-14 22:47] VITALS: BP 115/65; PULSE 72; RESP 16; TEMP 36.3; O2SAT 99
[2023-06-15 04:02] VITALS: BMI 16.9
[2023-06-15 04:26] VITALS: BP 87/55; PULSE 88; RESP 16; TEMP 36.4; O2SAT 97
[2023-06-15] MEDS: Dronabinol 2.5 MG Capsule 5 MG PO (06:12)
[2023-06-15] MEDS: Sodium Bicarbonate 650 MG Tablet PO (06:12)
[2023-06-15] MEDS: 0.9% Saline Lock 10 ML Syringe IV (06:14)
[2023-06-15 08:09] VITALS: BP 88/54; PULSE 68; RESP 16; TEMP 36.7; O2SAT 100
[2023-06-15] MEDS: Aspirin E.C. 81 MG Tablet PO (08:16)
[2023-06-15 09:49] VITALS: PULSE 78; RESP 20
--- NOTE | 2023-06-15 10:26 | PCM.PN.REN ---
Subjective Subjective Resting in bed, no complaints. To be going to [facility] today. Objective Data Objective Data Vital Signs: Vital Signs Temp Pulse Resp BP Pulse Ox O2 Del Method 98.1 F 78 20 H 88/54 L 100 Room Air 06/15/23 08:09 06/15/23 09:49 06/15/23 09:49 06/15/23 08:09 06/15/23 08:09 06/15/23 09:49 Oxygen Delivery Method Room Air Weight: 49 kg Body Mass Index (BMI) 16.9 Intake & Output: Intake and Output for Last 24 Hours 06/13/23 06/14/23 06/15/23 23:59 23:59 23:59 Intake Total 315 / 315 500 / 650 250 / 250 Output Total 300 / 300 200 / 200 Balance 15 / 15 300 / 450 250 / 250 Medical Nutrition Assessment Dietitian: Malnutrition Criteria Met Start: 06/08/23 12:18 Freq: Status: Active Protocol: Document 06/08/23 12:18 JOY (Rec: 06/08/23 12:19 JOY [id number]) Nutrition Malnutrition Evidence of Malnutrition Exists Yes Malnutrition (severe): Chronic Evidenced By Suboptimal Energy Intake ( Severe),Weight Loss (Moderate) ,Physical Changes (Severe) Clinical Problem Chronic Disease or Condition Related Malnutrition Etiology related to inadequate energy intake Signs/Symptoms as evidenced by pt consuming < 50% of usual po intake x >1 mo , fat/muscle weakness throughout body and BMI = 16.5 Status Active Problem Recommendation Dietitian Recommendations/Changes Continue liberal regular diet d/t signs/symptoms of malnutrition Continue ONS w/ medpass for increased nutrition if consumed Monitor for refeeding syndrome Will interview pt at time of follow up re: diet/wt hx and make additional rec as indicated. Lab / Micro Data 06/11/23 05:19 06/12/23 06:00 Micro: Microbiology 06/07/23 23:53 Urine, Catheterized Urine Culture - Final Enterococcus faecalis 06/07/23 21:24 Nasal Secretion SARS-CoV-2 Antigen (Rapid) - Final Rhythm Strip Rhythm Strip: Sinus Rhythm Rate: 63 Ectopy: PVC(s) and PAC(s) Physical Exam Narrative Alert and orient x3, no apparent distress S1, S2, RRR Lung sounds clear anteriorly and posteriorly Abdomen soft, nontender. PD catheter dressing clean, dry and intact. No edema Assessment & Plan Assessment/Plan (1) ESRD (end stage renal disease) on dialysis: (2) Adult failure to thrive: (3) Severe malnutrition: (4) Hypercalcemia: PLAN: Plan - ESRD on PD support. So far tolerating PD using all 1.5% dianeal. - Failure to thrive. Met with hospice and patient says she is not ready to give up yet. Would like to continue. To be discharged to rehab and then home with daughter. - ok for discharge per renal.
[2023-06-15] MEDS: AMOXICILLIN 500 MG CAPSULE PO (10:27)
[2023-06-15] MEDS: Magnesium Chloride 64 MG Delay Rel.Tablet 128 MG PO (10:27)
[2023-06-15] MEDS: Docusate Sodium 100 MG Capsule PO (10:28)
[2023-06-15] MEDS: Atorvastatin Calcium 40 MG Tablet PO (10:28)
[2023-06-15] MEDS: Clopidogrel Bisulfate 75 MG Tablet PO (10:28)
[2023-06-15] MEDS: Heparin Injection (Vial) 5,000 UNIT/ML VIAL 5000 UNIT SC (10:28)
--- NOTE | 2023-06-15 10:30 | CASEMGMT ---
Social Work Pt is ready for discharge today. MARY called daughter María Elena to let her know. She is going to come get pt's dialysis machine around 12pm to bring over to the half-way. Once the physician completes the discharge MARY or d/c special events planner will set up the discharge and let daughter know the time of transport. AMARI Diop
--- NOTE | 2023-06-15 11:02 | TREXTCAR_ITS ---
Diet Diet Order/Speech Therapy: 06/15/23 09:00 Diet: Regular - General Is pt able to select menu?: Yes Routine Orders/Code Status Code Status: DNRCC-A (No intubation) Wound(s) left lower abd: Wound Type: dialysis cath Therapies Weight Bearing: Full weight bearing Physical Therapy: Eval and Treat Occupational Therapy: Eval and Treat Problem/Diagnosis (1) ESRD (end stage renal disease) on dialysis: Status: Acute Code(s): N18.6 - End stage renal disease; Z99.2 - Dependence on renal dialysis (2) Adult failure to thrive: Status: Acute Code(s): R62.7 - Adult failure to thrive (3) Severe malnutrition: Status: Acute Code(s): E43 - Unspecified severe protein-calorie malnutrition (4) Hypercalcemia: Status: Acute Code(s): E83.52 - Hypercalcemia Plan 1. Chronic severe protein and caloric malnutrition-as evidenced by patient consuming less than 50% of usual p.o. intake x1 in 1 month, fat/muscle weakness throughout the body, and BMI equal to 16.5, continue liberal regular diet, consider continue ONS with med Pass for increased nutrition-continue supportive care per nutritional services, patient unfortunately is continuing not to eat per her choice. Again nephrology is is discussing with the patient's family whether they want to make her palliative care. We will monitor, evaluate, assess, and treat. Patient is on Remeron and Marinol, continue to encourage oral intake. #2 Chronic cholecystitis-patient is a poor surgical candidate at this time, continue to monitor, evaluate, assess, and treat #3 end-stage renal disease on chronic peritoneal dialysis-continue peritoneal dialysis at this time, nephrology is participating in her care #4 generalized debility-patient is being seen by PT and OT, we will attempt to get the patient placed in a nursing home facility for at least short-term rehab services. #5 coronary artery disease-continue present medications, will monitor, evaluate, assess, and treat #6 cystitis due to Enterococcus faecalis-continue amoxicillin Code time spent by myself addressing the patient's medical issues, reviewing all of her data, and collaborating with patient's care team: 35 minutes Allergies/Procedures Done in Hospital Allergies adhesive tape Allergy (Verified 06/07/23 21:14) Rash ok with opsite drsgs amoxicillin [From Augmentin] Allergy (Verified 06/07/23 21:14) Swelling srinivasan Allergy (Verified 06/07/23 21:14) Itching GREEN BEANS cephalexin [From Keflex] Allergy (Verified 06/07/23 21:14) Swelling clavulanic acid [From Augmentin] Allergy (Verified 06/07/23 21:14) Swelling latex Allergy (Verified 06/07/23 21:14) Rash Penicillins [PCN] Allergy (Verified 06/07/23 21:14) Swelling sulfamethoxazole [From Bactrim] Allergy (Verified 06/07/23 21:14) rash,swellling, itching trimethoprim [From Bactrim] Allergy (Verified 06/07/23 21:14) rash,swellling, itching walnut Allergy (Verified 06/07/23 21:14) Itching Procedures: - (Ongoing peritoneal dialysis) Type of Care/Length of Stay Estimated LOS: Convalescent Care Less Than 30 days Type of Care Needed: Skilled Rehab Potential: Good Prognosis: Good Additional Orders/Day of Discharge H&P will serve as current which was dated: 06/08/23 Day of Discharge: 06/15/23 Dietary and Speech Recommendations Dietitian Recommendations/Changes: Continue ONS w/ medpass for increased nutrition if consumed Monitor for refeeding syndrome Consider more aggressive nutrition support if po intake fails to improve and if in accordance w/ pt/family wishes. Discharge Plan Admission Admit Date/Time: 06/08/23 02:21 Primary Reason for Your Visit: Debility, malnutrition Attending Provider: Madhav Neumann Primary Care Provider: Jewell Bowens Consulting Providers: Alejandra Metcalf; Geronimo Keene; Santi Nieves; Roque Kingston Instructions Additional Instructions / Restrictions: Continue peritoneal dialysis with home dialysis solution as before Patient is not allergic to penicillin Discharge Orders/Prescriptions Prescriptions: New amoxicillin 500 mg Capsule 500 mg PO DAILY Qty: 0 0RF Rx Instructions: Take for 5 days then discontinue starting 06/16/2023 dronabinol 2.5 mg Capsule 5 mg PO BIDAC Qty: 10 0RF docusate sodium 100 mg Capsule 100 mg PO BID Qty: 0 0RF famotidine 20 mg Tablet 20 mg PO DAILY PRN PRN (Reason: HEARTBURN OR INDIGESTION) Qty: 0 0RF melatonin 3 mg Tablet 3 mg PO QHS PRN PRN (Reason: Insomnia) Qty: 0 0RF mirtazapine 15 mg Tablet 30 mg PO QHS Qty: 0 0RF Nepro Carb Steady 0.08 gram-1.8 kcal/mL Liquid 120 ml PO TIDCM Qty: 0 0RF Continued carvedilol 3.125 mg tablet 3.125 mg PO DAILY Qty: 90 3RF clopidogrel 75 mg tablet 75 mg PO DAILY Qty: 90 3RF atorvastatin 40 mg tablet 40 mg PO QAM magnesium oxide 400 mg magnesium Tablet 400 mg PO DAILY mecobalamin (vitamin B12) [B12 Active] 1,000 mcg Tablet,Chewable 2,000 mcg PO DAILY potassium chloride 20 mEq tablet,ER particles/crystals 40 meq PO BID sodium bicarbonate 650 mg tablet 650 mg PO TID Patient Comments: TAKE 2 TABLETS BY MOUTH THREE TIMES DAILY ergocalciferol (vitamin D2) [Vitamin D2] 1,250 mcg (50,000 unit) Capsule 1,250 mcg PO QWEEK calcitriol 0.5 mcg capsule 1 mcg PO DAILY paroxetine HCl 20 mg tablet 20 mg PO DAILY Patient Comments: TAKE 1 TABLET BY MOUTH DAILY FOR 7 DAYS then increase to 1&1/2 TABLETS DAILY THEREAFTER aspirin 81 mg tablet,delayed release (DR/EC) 81 mg PO BREAKFAST Referrals / Follow Up: Jewell Bowens DO [Primary Care Provider] - Disposition Disposition (needs filled in before D/C Order can be placed): Long-Term Facility
--- NOTE | 2023-06-15 11:21 | PCM.DC.SUM ---
Providers Date of Admission: 06/08/23 Date of Discharge: 06/15/23 Primary Care Physician: Dr. Jewell Bowens, DO Consultations 06/08/23 02:41 Consult: Nephrology Routine Consulting Provider: Geronimo Keene Reason for Consult: ESRD on PD EMERGENT Consult: No Notified: Yes Date Notified: 06/08/23 Time Notified: 07:59 Method of Notification: Answering Service 06/11/23 19:13 Consult: General Surgery Routine Consulting Provider: Roque Kingston Reason for Consult: cholecystitis EMERGENT Consult: No Notified: Yes Date Notified: 06/11/23 Time Notified: 19:14 Method of Notification: Verbal Reason For Visit: FAILURE TO THRIVE/TRANSAMINITIS/WGT LOSS Diagnosis Discharge Diagnosis (1) ESRD (end stage renal disease) on dialysis: Status: Acute Code(s): N18.6 - End stage renal disease; Z99.2 - Dependence on renal dialysis (2) Adult failure to thrive: Status: Acute Code(s): R62.7 - Adult failure to thrive (3) Severe malnutrition: Status: Acute Code(s): E43 - Unspecified severe protein-calorie malnutrition (4) Hypercalcemia: Status: Acute Code(s): E83.52 - Hypercalcemia Plan 1. Chronic severe protein and caloric malnutrition-as evidenced by patient consuming less than 50% of usual p.o. intake x1 in 1 month, fat/muscle weakness throughout the body, and BMI equal to 16.5, continue liberal regular diet, consider continue ONS with med Pass for increased nutrition-continue supportive care per nutritional services, patient unfortunately is continuing not to eat per her choice. Again nephrology is is discussing with the patient's family whether they want to make her palliative care. We will monitor, evaluate, assess, and treat. Patient is on Remeron and Marinol, continue to encourage oral intake. #2 Chronic cholecystitis-patient is a poor surgical candidate at this time, continue to monitor, evaluate, assess, and treat #3 end-stage renal disease on chronic peritoneal dialysis-continue peritoneal dialysis at this time, nephrology is participating in her care #4 generalized debility-patient is being seen by PT and OT, we will attempt to get the patient placed in a halfway facility for at least short-term rehab services. #5 coronary artery disease-continue present medications, will monitor, evaluate, assess, and treat #6 cystitis due to Enterococcus faecalis-continue amoxicillin Code time spent by myself addressing the patient's medical issues, reviewing all of her data, and collaborating with patient's care team: 35 minutes Medications at Discharge Home Medications magnesium oxide 400 mg PO DAILY supplement 12/17/21 mecobalamin (vitamin B12) 1,000 mcg chewable tablet (B12 Active) 2,000 mcg PO DAILY vitamin 12/17/21 ergocalciferol (vitamin D2) 1,250 mcg (50,000 unit) capsule (Vitamin D2) 1,250 mcg PO QWEEK vitamin 01/06/22 sodium bicarbonate 650 mg tablet 650 mg PO TID supplement 01/06/22 aspirin 81 mg tablet,delayed release 81 mg PO BREAKFAST heart health 10/10/22 calcitriol 0.5 mcg capsule 1 mcg PO DAILY bone health 12/21/22 carvedilol 3.125 mg tablet 3.125 mg PO DAILY heart #90 tabs 12/21/22 clopidogrel 75 mg tablet 75 mg PO DAILY blood thinner #90 tabs 12/21/22 potassium chloride 20 mEq tablet,extended release(part/cryst) 40 meq PO BID supplement 12/21/22 atorvastatin 40 mg tablet 40 mg PO QAM cholesterol 04/06/23 paroxetine HCl 20 mg tablet 20 mg PO DAILY depression 04/06/23 amoxicillin 500 mg capsule 500 mg PO DAILY #0 caps 06/15/23 docusate sodium 100 mg capsule 100 mg PO BID #0 caps 06/15/23 dronabinol 2.5 mg capsule 5 mg (2 x 2.5 mg) PO BIDAC #10 caps 06/15/23 famotidine 20 mg tablet 20 mg PO DAILY PRN PRN HEARTBURN OR INDIGESTION #0 tabs 06/15/23 melatonin 3 mg tablet 3 mg PO QHS PRN PRN Insomnia #0 tabs 06/15/23 mirtazapine 15 mg tablet 30 mg (2 x 15 mg) PO QHS #0 tabs 06/15/23 nut.tx.imp.renal fxn,lac-reduc 0.08 gram-1.8 kcal/mL oral liquid (Nepro Carb Steady) 120 ml PO TIDCM #0 mL 06/15/23 Hospital Course Operations None Procedures None Summary of Care Provided Minutes Spent on Discharge: 33 Hospital Course: This 73-year-old white female was seen in the emergency room at [facility] presenting with decreased oral intake, weight loss, generalized weakness. Patient is on chronic peritoneal dialysis for end-stage renal disease. Work-up in the emergency room included a CBC which revealed a normal white blood cell count, hemoglobin was 8.7, creatinine was 6.64 and BUN was 47. Chest x-ray was unremarkable. Patient was admitted to [facility] and seen by PT and OT, her peritoneal dialysis was continued. Patient had some abdominal discomfort and she underwent an abdominal ultrasound which showed cholelithiasis with trace pericholecystic fluid and reported positive sonographic Lau sign. Patient's appetite remained poor during her hospitalization, she underwent a hepatobiliary scan which showed evidence of cholecystitis, she was seen by general surgery who felt that the patient had a chronic cholecystitis and did not have an acute cholecystitis, she was felt to be a poor candidate for surgery. Hospice consulted on the patient, patient did not sign up with hospice because she wanted to continue peritoneal dialysis, she promised this examiner to increase her diet, she was placed on Marinol and Remeron as an appetite stimulant. Patient agreed to temporary placement in a halfway facility. On 06/15/2023, patient was seen and examined:alert and no apparent distress Constitutional Narrative: Patient appears cachectic and older than her stated age General Appearance: cooperative and well kempt Orientation / Consciousness: awake, patient able to converse with this examiner today without a problem HEENT normocephalic, head/scalp atraumatic and moist oral mucous membranes Eyes PERRL, EOMs intact bilaterally and conjunctivae normal Neck supple, no JVD, thyroid normal and no carotid bruits General: trachea midline Resp normal respiratory effort, no retractions, no use of accessory muscles and clear to auscultation bilaterally Auscultation: Negative for rales, rhonchi or wheezes Cardio regular rate, regular rhythm, S1 normal heart sound, S2 normal heart sound, no murmurs, no rub and no gallops GI normal to inspection, nondistended, normoactive bowel sounds, soft to palpation, non-tender and non-distended GI Narrative: Dialysis catheter tube is in place in the left mid abdomen Extremity no clubbing, cyanosis or edema Skin no rashes or lesions noted General Skin Exam: no breakdown Neuro CN's II-XII intact bilaterally, moves all extremities, no focal motor deficits and no sensory deficits noted Sensorium / Orientation: awake and alert Speech: speech normal Psych Psych Narrative: Patient has depressed affect Patient was felt to be stable for transfer to an extended care facility for inpatient rehab services on 06/15/2023. Medical Records Data Medical Nutrition Assessment Dietitian: Malnutrition Criteria Met Start: 06/08/23 12:18 Freq: Status: Active Protocol: Document 06/08/23 12:18 SLA (Rec: 06/08/23 12:19 SLA [id number]) Nutrition Malnutrition Evidence of Malnutrition Exists Yes Malnutrition (severe): Chronic Evidenced By Suboptimal Energy Intake ( Severe),Weight Loss (Moderate) ,Physical Changes (Severe) Clinical Problem Chronic Disease or Condition Related Malnutrition Etiology related to inadequate energy intake Signs/Symptoms as evidenced by pt consuming < 50% of usual po intake x >1 mo , fat/muscle weakness throughout body and BMI = 16.5 Status Active Problem Recommendation Dietitian Recommendations/Changes Continue liberal regular diet d/t signs/symptoms of malnutrition Continue ONS w/ medpass for increased nutrition if consumed Monitor for refeeding syndrome Will interview pt at time of follow up re: diet/wt hx and make additional rec as indicated. Weight / BMI Weight Weight: 49 kg Body Mass Index (BMI) 16.9 ABG / Lab / Microbiology Data 06/11/23 05:19 06/12/23 06:00 Microbiology: Microbiology 06/07/23 23:53 Urine, Catheterized Urine Culture - Final Enterococcus faecalis 06/07/23 21:24 Nasal Secretion SARS-CoV-2 Antigen (Rapid) - Final Meaningful Use Info Meaningful Use Diagnoses (Choose all that apply): None applicable Discharge Plan Admission Admit Date/Time: 06/08/23 02:21 Primary Reason for Your Visit: Debility, malnutrition Attending Provider: Mahdav Neumann Primary Care Provider: Jewell Bowens Consulting Providers: Alejandra Metcalf; Geronimo Keene; Santi Nieves; Roque Kingston Instructions Additional Instructions / Restrictions: Continue peritoneal dialysis with home dialysis solution as before Patient is not allergic to penicillin Discharge Orders/Prescriptions Prescriptions: New amoxicillin 500 mg Capsule 500 mg PO DAILY Qty: 0 0RF Rx Instructions: Take for 5 days then discontinue starting 06/16/2023 dronabinol 2.5 mg Capsule 5 mg PO BIDAC Qty: 10 0RF docusate sodium 100 mg Capsule 100 mg PO BID Qty: 0 0RF famotidine 20 mg Tablet 20 mg PO DAILY PRN PRN (Reason: HEARTBURN OR INDIGESTION) Qty: 0 0RF melatonin 3 mg Tablet 3 mg PO QHS PRN PRN (Reason: Insomnia) Qty: 0 0RF mirtazapine 15 mg Tablet 30 mg PO QHS Qty: 0 0RF Nepro Carb Steady 0.08 gram-1.8 kcal/mL Liquid 120 ml PO TIDCM Qty: 0 0RF Continued carvedilol 3.125 mg tablet 3.125 mg PO DAILY Qty: 90 3RF clopidogrel 75 mg tablet 75 mg PO DAILY Qty: 90 3RF atorvastatin 40 mg tablet 40 mg PO QAM magnesium oxide 400 mg magnesium Tablet 400 mg PO DAILY mecobalamin (vitamin B12) [B12 Active] 1,000 mcg Tablet,Chewable 2,000 mcg PO DAILY potassium chloride 20 mEq tablet,ER particles/crystals 40 meq PO BID sodium bicarbonate 650 mg tablet 650 mg PO TID Patient Comments: TAKE 2 TABLETS BY MOUTH THREE TIMES DAILY ergocalciferol (vitamin D2) [Vitamin D2] 1,250 mcg (50,000 unit) Capsule 1,250 mcg PO QWEEK calcitriol 0.5 mcg capsule 1 mcg PO DAILY paroxetine HCl 20 mg tablet 20 mg PO DAILY Patient Comments: TAKE 1 TABLET BY MOUTH DAILY FOR 7 DAYS then increase to 1&1/2 TABLETS DAILY THEREAFTER aspirin 81 mg tablet,delayed release (DR/EC) 81 mg PO BREAKFAST Referrals / Follow Up: Jewell Bowens DO [Primary Care Provider] - Disposition Disposition (needs filled in before D/C Order can be placed): Nursing Home Facility Charges/Coding Visit Charges Inpatient E&M: 28068 Disch Hosp >30min
--- NOTE | 2023-06-15 12:17 | CASEMGMT ---
Discharge Planning Discharge orders, signed med list, and transport time sent to [facility] via [facility]. [facility] will transport patient by cot at 2:30p. Nursing, SW, and patients daughter updated. Mariam Dobbins, Discharge Planning Asst.
--- NOTE | 2023-06-15 12:19 | CASEMGMT ---
Social Work Convalescent exemption form for SNF admission completed on [facility]. Copy made for chart and in packet for SNF. Discharge enterprise resource planning consultant finalizing discharge being send to SNF and transportation time. PLAN: Discharge skilled level of care, under convalescent stay at [facility] today. [facility] to transport. No other needs requested or indicated. -BRITTNEY Trujillo
[2023-06-15 12:44] VITALS: BP 95/61; PULSE 91; RESP 18; TEMP 37.1; O2SAT 98
--- NOTE | 2023-06-15 13:14 | NURSING ---
report called to nurse [facility] at [facility]
--- NOTE | 2023-06-15 15:18 | NURSING ---
verbal report given to transport. assisted with transfer patient onto cot. Daughter took peritoneal diaylsis machine/supplies as well as all personal belongings with her.
== END 2023-06-15 15:29 | DRG 640 ==
LOC: ED 06-08 01:25 → MS3 06-08 03:17
PROVIDERS: Internal Medicine; Nurse Practitioner Adult Health; Admitting Provider Internal Medicine; Emergency Provider Emergency Medicine; PCP Family Medicine; Visit Provider Internal Medicine
DX: R62.7 Adult failure to thrive (principal); E43 Unspecified severe protein-calorie malnutrition; N18.6 End stage renal disease; K80.12 Calculus of gallbladder with acute and chronic cholecystitis without obstruction; I12.0 Hypertensive chronic kidney disease with stage 5 chronic kidney disease or end stage renal disease; Z68.1 Body mass index [BMI] 19.9 or less, adult; B17.9 Acute viral hepatitis, unspecified; D63.1 Anemia in chronic kidney disease; N30.90 Cystitis, unspecified without hematuria; I73.9 Peripheral vascular disease, unspecified; Z99.2 Dependence on renal dialysis; F32.A Depression, unspecified; E78.5 Hyperlipidemia, unspecified; I25.10 Atherosclerotic heart disease of native coronary artery without angina pectoris; E83.52 Hypercalcemia; K59.09 Other constipation; I25.2 Old myocardial infarction; B95.2 Enterococcus as the cause of diseases classified elsewhere; R53.81 Other malaise; R29.6 Repeated falls; Z66 Do not resuscitate; Z95.5 Presence of coronary angioplasty implant and graft; Z79.02 Long term (current) use of antithrombotics/antiplatelets; Z79.82 Long term (current) use of aspirin; Z79.899 Other long term (current) drug therapy
CPT/HCPCS: 36415; 71045; 71250; 76705; 78227; 80048; 80053; 80069; 80076; 81001; 82306; 82977; 83735; 83970; 84100; 84443; 85025; 87077; 87086; 87088; 87186; 87811; 93005; 94668; 94760; 97110; 97162; 97166; 97530; 97535; 99252; 99284; A9537; P9612; A4216; G0463; J0885; J2405